=== PATIENT | female | born 1945 | race Caucasian/White ===

== ENCOUNTER 2016-07-27 12:09 | Emergency (ER) | payer OTHER, MEDICARE ==
[~2016-07-27] VITALS: Ht 149.9 cm; Wt 83.0 kg
[~2016-07-27 12:09] MED LIST: ABILIFY 10 MG10 MG PO; ABILIFY 2MG2 MG PO; ABILIFY 5MG5 MG PO; ABILIFY10 M1 PO; ABILIFY5 M1 PO; ALPRAZOLAM0.25 M1 PO; ALPRAZOLAM0.5 MG PO; AMOX-CLAV 875-1 EACH PO; AMOXIL500 MG PO; ARIPIPRAZOLE2 MG PO; ARIPIPRAZOLE5 M1 PO; ASPIRIN CHILDRE81 MG PO; ASPIRIN81 M4 PO; ATIVAN 0.5MG T0.5 MG PO; ATIVAN0.5 M1 PO; AUGMENTIN 875-1 EACH PO; BENZTROPINE ME0.5 M1 PO; BENZTROPINE ME0.5 MG PO; CEFUROXIME AXE500 MG PO; CEPHALEXIN500 MG PO; CLARINEX 5 MG TA5 MG PO; CLARINEX5 M1 PO; CLARINEX5 MG PO; CLARITIN10 MG PO; CRESTOR 10MG10 MG PO; CRESTOR5 M1 PO; DIVALPROEX SOD500 M2 PO; K-DUR 20MEQ TA20 MEQ PO; KEFLEX 250MG C250 MG PO; LAMICTAL 100MG100 MG PO; LAMICTAL150 MG PO; LASIX20 M1 PO; LASIX40 M1 PO; NATURE S BLEND PO; NATURE'S BLE1000 MCG PO; NITROGLYCERIN1 EACH TOP; OMEPRAZOLE20 M2 PO; POTASSIUM CHLO20 ME2 PO; PREDNISOLO15 MG/5 M4 PO; PRISTIQ 50MG50 MG PO; PRISTIQ ER25 MG PO; PRISTIQ ER50 MG PO; PROVENTIL HFA6.7 GM INH; QUETIAPINE FUMA25 M1 PO; QUETIAPINE FUMA50 M1 PO; SEROQUEL100 M1 PO; SEROQUEL50 M1 PO; VENLAFAXINE H37.5 M1 PO; VITAMIN C100 M2 PO; VITAMIN D1000 IU PO; VITAMIN D32000 I1 PO; VITAMIN D32000 UNI1 PO; XANAX 0.25MG0.25 MG PO; ZINC50 M1 PO; [UNRECOGNIZED DRUG - OTHER] INH
--- NOTE | 2016-07-27 13:29 | ED AMS/SEIZURE/WEAK/DIZZY ---
See Addendum History of Present Illness General Chief Complaint: General Adult Stated Complaint: WEAKNESS Source: patient Exam Limitations: no limitations Vital Signs & Intake/Output Vital Signs & Intake/Output Vital Signs Date Time Temp Pulse Resp B/P Pulse O2 O2 Flow FiO2 Ox Delivery Rate 07/28 2030 96.8 75 16 115/56 97 Room Air 07/28 1651 Room Air Room Air 07/28 1434 97.0 76 18 112/52 97 Room Air 07/28 1228 95.4 80 18 138/70 97 Room Air 07/28 1007 98.0 73 20 136/64 95 Room Air 07/28 0957 Room Air Room Air 07/28 0723 98.2 76 18 120/64 96 Room Air 07/28 0555 96.4 74 18 119/55 94 Room Air ED Intake and Output 07/28 0000 07/27 1200 Intake Total Output Total Balance Patient 183 lb Weight Allergies Coded Allergies: Sulfa (Sulfonamide Antibiotics) (Intermediate, FACIAL EDEMA 07/27/16) azithromycin (Intermediate, THROAT CLOSURE 07/27/16) egg (Intermediate, SWOLLEN RED EYES 07/27/16) amoxicillin (UNKNOWN 07/27/16) atorvastatin (UNKNOWN 07/27/16) lactose (UNKNOWN 07/27/16) ciprofloxacin (ANXIETY 07/27/16) Reconcile Medications Aripiprazole (Abilify) 10 MG TABLET 1 TAB PO QPM BIPOLAR DISORDER (Reported) Aspirin (Aspirin*) 81 MG TAB.CHEW 1-2 TAB PO DAILY HEART HEALTH (Reported) Azelastine HCl 137 MCG (0.1 %) SPRAY.PUMP 1 SPRAY NASB BID ALLERGIES ( Reported) Beclomethasone Dipropionate (Qnasl) (Unknown Strength) HFA.AER.AD (Unknown Dose) UNKNOWN (Reported) Cholecalciferol (Vitamin D3) (Vitamin D3) 2,000 UNIT TABLET 1 SGL PO DAILY SUPPLEMENT (Reported) Desloratadine (Clarinex) 5 MG TABLET 1 TAB PO DAILY ALLERGY (Reported) Divalproex Sodium 500 MG TABLET.DR 1 TAB PO BID MENTAL HEALTH (Reported) Furosemide (Lasix) 40 MG TABLET 1 TAB PO QAM CHF (Reported) Montelukast Sodium (Unknown Strength) TABLET (Unknown Dose) PO DAILY UNKNOWN (Reported) Potassium Chloride 20 MEQ TAB.ER.PRT 1 TAB PO DAILY SUPPLEMENT (Reported) Rosuvastatin Calcium (Crestor) (Unknown Strength) TABLET (Unknown Dose) UNKNOWN (Reported) Triage Note: PT BIBA TO [facility] FROM HOME IN [place] C/C GENERALIZED WEAKNESS, R ARM PAIN (CHRONIC) AND "MY EARS FEEL VERY CLOGGED". CLOGGED EARS X 5 DAYS. "EXTREMELY WEAK" X 3 WEEKS SINCE GETTING OUT OF REHAB. STATES "YESTERDAY IT FELT LIKE MY LEGS WERE GOING TO COLLAPSE". AMBULATES WITH [facility] AT [facility]. Triage Nurses Notes Reviewed? yes HPI: Patient presents for evaluation of generalized weakness. Onset of symptoms occurred about 3 weeks ago, gradual in onset but worsening over that time. Patient just returned home from a short-term rehabilitation stay. Over that time the patient's chronic leg and finger swelling has now worsened. Other than chills, the patient denies any associated fever or cold symptoms. There has been no lightheadedness shortness of breath or chest pain. Patient seems to be referring paroxysmal nocturnal dyspnea requiring her to elevate her head and upper body at night (patient typically sleeps upright). (LIBORIO GARCIA,TD Kothari) Past History Travel History Traveled to [place] past 21 day No Medical History Any Pertinent Medical History? 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 No (LIBORIO GARCIA,TD Kothari) Review of Systems Review of Systems Constitutional: Reports: weakness. EENTM: Reports: no symptoms. Respiratory: Reports: no symptoms. Cardiovascular: Reports: no symptoms. GI: Reports: no symptoms. Genitourinary: Reports: no symptoms. Musculoskeletal: Reports: no symptoms. Skin: Reports: no symptoms. Neurological/Psychological: Reports: no symptoms. Hematologic/Endocrine: Reports: no symptoms. Immunologic/Allergic: Reports: no symptoms. All Other Systems: Reviewed and Negative (LIBORIO GARCIA,TD Kothari) Physical Exam Physical Exam General Appearance: SEE BELOW Comments: Gen.: Well-nourished, well-developed, no acute respiratory distress. Head: Normocephalic, atraumatic. Eyes: Normal inspection bilaterally Ears: Normal inspection bilaterally Nose: Normal inspection Throat/mouth : Moist mucosa Neck: Supple, full range of motion, no goiter Heart: Regular rate and rhythm, no murmurs rubs or gallops Lungs: Left sided mild inspiratory and expiratory wheezing, no rales or rhonchi, normal air entry bilaterally Chest: Nontender Back: Normal range of motion Abdomen: Soft, nontender, nondistended, normal bowel sounds Extremities: Normal range of motion grossly, equal radial pulses, no cyanosis bilateral pitting 1-2+ lower extremity edema Neurologic: Cranial nerves grossly intact, speech is clear Skin: warm and dry Psychiatric: Calm, cooperative, no apparent delusions or hallucinations Core Measures ACS in differential dx? No CVA/TIA Diagnosis: No Severe Sepsis Present: No Septic Shock Present: No (LIBORIO GARCIA,TD Kothari) Progress Differential Diagnosis: anemia, dehydration, hypoglycemia, hypoxia, pneumonia, UTI/pyelo, CONGESTIVE HEART FAILURE Plan of Care: Orders Procedure Date/time Status Theraputic Activities 15 Min 07/28 UNK Complete Therapeutic Exercise X 15 07/28 UNK Complete MOBILITY GOAL STATUS 07/28 UNK Complete MOBILITY CURRENT STATUS 07/28 UNK Complete PT EVAL MOD COMPLEX 30 MIN 07/28 UNK Complete Current Medications Sig/Courtney Start time Last Medication Dose Stop Time Status Admin Atorvastatin Calcium 40 MG ONCE ONE 07/28 0915 CAN (Lipitor) 07/28 1200 Initial ED EKG: none (LIBORIO GARCIA,TD Kothari) Hand-Off Endorsed To: MARCELLUS PERLA MD Endorsed Time: 0700 Pending: consult (CASE MANAGEMENT) (ZABRINA GARCIA,SIMONA Rojas) Departure Departure Disposition: STILL A PATIENT Condition: Stable Referrals: JUAN DAVID MEIER MD (PCP/Family) Departure Forms: Customer Survey General Discharge Information (TD CAPONE MD) Departure Clinical Impression Primary Impression: Weakness (ZABRINA GARCIA,SIMONA Rojas) General Discharge Information
[2016-07-27 14:01] LABS: ABSOLUTE BASOPHIL COUNT 0 /CUMM (0.0-0.2); ABSOLUTE EOSINOPHIL COUNT 0 /CUMM (0.0-0.7); ABSOLUTE GRANULOCYTE CT 2.2 /CUMM (1.4-6.5); ABSOLUTE LYMPH COUNT 0.9 /CUMM (1.2-3.4); ABSOLUTE MONOCYTE COUNT 0.3 /CUMM (0.10-0.60); BASOPHIL % 0.1 % (0.0-2.0); GRANULOCYTE % 64.5 % (42.2-75.2); HEMATOCRIT 36.1 % (37-47); MEAN CORPUSCULAR HGB 28.9 PG (27.0-31.0); MEAN CORPUSCULAR HGB CONC 34.5 G/DL (33.0-37.0); MEAN CORPUSCULAR VOLUME 83.7 FL (81.0-99.0); MEAN PLATELET VOLUME 7.1 FL (7.4-10.4); PLATELET COUNT 192 /CUMM (130-400); RBC DISTRIBUTION WIDTH 19.2 % (11.5-14.5); RED BLOOD CELL CT 4.32 /CUMM (4.20-5.40); WHITE BLOOD CELL COUNT 3.4 /CUMM (4.8-10.8)
--- NOTE | 2016-07-27 14:11 | RADIOLOGY REPORT ---
EXAMINATION: XR PORTABLE CHEST CLINICAL INFORMATION: Weakness COMPARISON: 05/15/2016 TECHNIQUE: Portable AP view of the chest was obtained. FINDINGS: No focal consolidation, pulmonary edema, or pleural effusion. Stable enlarged cardiomediastinal silhouette. IMPRESSION: Mild cardiomegaly with low lung volumes. No significant change.
[2016-07-27] MEDS ORDERED: LASIX40 M1 PO (20:50)
[2016-07-27] MEDS ORDERED: MONTELUKAST SOD10 M1 PO (20:51)
[2016-07-27] MEDS ORDERED: QNASL8.7 GM (20:52)
[2016-07-27] MEDS ORDERED: CRESTOR5 M1 (20:53)
[2016-07-27] MEDS ORDERED: AZELASTINE137 MCG/0. NASB (20:53)
[2016-07-29 16:57] VITALS: BP 142/56
== END 2016-07-29 18:16 ==
LOC: ERH 12:09
PROVIDERS: Emergency Medicine
DX: R53.1 Weakness (principal); R26.89 Other abnormalities of gait and mobility; M17.0 Bilateral primary osteoarthritis of knee; F31.9 Bipolar disorder, unspecified; M79.89 Other specified soft tissue disorders
CPT/HCPCS: 81001; 87086; 93005; 93010; 97110-GP; 97162-GP; 97530-GP; G8978-GP; G8979-GP; J0401; J3490

== ENCOUNTER 2016-08-24 15:57 | Observation (INO) | payer OTHER, MEDICARE ==
[~2016-08-24 15:57] MED LIST changes: +AZELASTINE137 MCG/0. NASB; +CRESTOR5 M1; +MONTELUKAST SOD10 M1 PO; +QNASL8.7 GM
--- NOTE | 2016-08-24 16:01 | NUR ---
RADHA FROM HOME FOR GENERALIZED WEAKNESS. PER EMS, OT WAS AT HOUSE AND STATED PT WAS UNABLE TO GET UP DUE TO WEAKNESS AND URINE APPEARED TURBID. UPON ARRIVAL PT RESTING COMFORTABLY, IN NAD
--- NOTE | 2016-08-24 16:51 | NUR ---
PT VOIDED LARGE AMOUNT OF CLEAR LIGHT YELLOW URINE ON BEDPAN
--- NOTE | 2016-08-24 16:58 | NUR ---
URINE TRIO SENT TO LAB.
--- NOTE | 2016-08-24 17:28 | ED GENERAL ADULT ---
History of Present Illness General Chief Complaint: General Adult Stated Complaint: BIBA GEN WEAKNESS Source: patient, family, old records Exam Limitations: poor historian Vital Signs & Intake/Output Vital Signs & Intake/Output Vital Signs Date Time Temp Pulse Resp B/P Pulse O2 O2 Flow FiO2 Ox Delivery Rate 08/25 1527 97.8 98 18 137/71 99 08/25 0618 96.0 67 18 136/60 98 Room Air 08/24 2140 Room Air 08/24 2113 95.9 75 16 118/63 98 Room Air ED Intake and Output 08/25 0000 08/24 1200 Intake Total Output Total 400 Balance -400 Output, Urine 400 Allergies Coded Allergies: Sulfa (Sulfonamide Antibiotics) (Intermediate, FACIAL EDEMA 07/27/16) azithromycin (Intermediate, THROAT CLOSURE 07/27/16) egg (Intermediate, SWOLLEN RED EYES 07/27/16) atorvastatin (UNKNOWN 07/27/16) lactose (UNKNOWN 07/27/16) ciprofloxacin (ANXIETY 07/27/16) Reconcile Medications Amoxicillin 500 MG TABLET 1 TAB PO TID ANTIBIOTIC (Reported) Aripiprazole (Abilify) 10 MG TABLET 1 TAB PO QPM BIPOLAR DISORDER (Reported) Aspirin (Aspirin*) 81 MG TAB.CHEW 1-2 TAB PO DAILY HEART HEALTH (Reported) Azelastine HCl 137 MCG (0.1 %) SPRAY.PUMP 2 SPRAY NASB BID ALLERGIES ( Reported) Cholecalciferol (Vitamin D3) (Vitamin D3) 2,000 UNIT TABLET 1 SGL PO DAILY SUPPLEMENT (Reported) Desloratadine (Clarinex) 5 MG TABLET 1 TAB PO DAILY ALLERGY (Reported) Divalproex Sodium 500 MG TABLET.DR 2,000 MG PO BID MENTAL HEALTH (Reported) Furosemide (Lasix) 40 MG TABLET 1 TAB PO QAM CHF (Reported) Potassium Chloride 20 MEQ TAB.ER.PRT 1 TAB PO DAILY SUPPLEMENT (Reported) Triage Note: BIBA FROM HOME FOR GENERALIZED WEAKNESS. PER EMS, OT WAS AT HOUSE AND STATED PT WAS UNABLE TO GET UP DUE TO WEAKNESS AND URINE APPEARED TURBID. UPON ARRIVAL PT RESTING COMFORTABLY, IN NAD Triage Nurses Notes Reviewed? yes HPI: Patient is a 70 year old female brought in by ambulance complaining of generalized weakness, ear pressure, sinus pressure. Symptoms x 1-2 weeks, worsening over the past couple of days. Urinary frequency onset last week, placed on Amoxicillin on Wednesday with mild improvement. Patient was having difficulty waking up over the past week and was talking in her sleep, improving since satrting the Amoxicillin. Patient has had chronic problems with congestions, taking Claritin and using ear drops without improvement. Today patient was having difficulty ambulating, bilateral calf cramping sensation and could not walk down the stairs. This is a decline from patient's baseline per patient's daughter. Associated congested cough. Mild dyspnea. Denies chest pain, fevers. (CORINNA LÓPEZ) Past History Travel History Traveled to [place] past 21 day No Medical History Any Pertinent Medical History? 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 No (CORINNA LÓPEZ) Review of Systems Review of Systems Constitutional: Reports: malaise, weakness. Denies: chills, fever. EENTM: Reports: nasal congestion. Respiratory: Reports: cough, short of breath. Cardiovascular: Reports: peripheral edema. Denies: chest pain, syncope. GI: Denies: abdominal pain. Genitourinary: Reports: no symptoms. Musculoskeletal: Denies: back pain, neck pain. Neurological/Psychological: Reports: weakness. Denies: headache, numbness. Hematologic/Endocrine: Denies: bruising, bleeding. Immunologic/Allergic: Denies: splenectomy. (CORINNA LÓPEZ) Physical Exam Physical Exam General Appearance: well developed/nourished, alert, awake Head: atraumatic, normal appearance, tenderness bilateral maxillary sinuses Eyes: Bilateral: normal appearance, PERRL, EOMI. Ears, Nose, Throat: normal pharynx, normal ENT inspection, hearing grossly normal Neck: normal inspection, supple, full range of motion Respiratory: normal breath sounds, chest non-tender, no respiratory distress, lungs clear Cardiovascular: regular rate/rhythm Peripheral Pulses: 2+ dorsalis pedis (R), 2+ dorsalis pedis (L) Gastrointestinal: soft, non-tender Back: normal inspection, normal range of motion Extremities: 2+ bilateral lower extremity edema Neurologic/Psych: awake, alert Skin: intact, normal color, warm/dry Lymphatic: no anterior cervical sofia Core Measures ACS in differential dx? No CVA/TIA Diagnosis: No Severe Sepsis Present: No Septic Shock Present: No (CORINNA LÓPEZ) Progress Differential Diagnoses I considered the following diagnoses in my evaluation of the patient: dehydration, electrolyte abnormality, sinusitis, pneumonia, anemia, sepsis, psychiatric, chf, vertigo peripheral vs central, uti Plan of Care: Orders Procedure Date/time Status CASE MANAGEMENT CONSULT 08/25 1108 Active PT Evaluate & Treat 08/25 1017 Active BASIC METABOLIC PANEL 08/25 0608 Complete Theraputic Activities 15 Min 08/25 UNK Complete MOBILITY GOAL STATUS 08/25 UNK Complete MOBILITY CURRENT STATUS 08/25 UNK Complete PT EVAL MOD COMPLEX 30 MIN 08/25 UNK Complete Laboratory Tests 08/25/16 0658: Anion Gap 1 L, Estimated GFR > 60, BUN/Creatinine Ratio 24.3, Glucose 64 L, Calcium 9.4 08/24/16 2043: Lactic Acid Cancelled Patient re-evaluated multiple times. Results of labs and chest x-ray discussed with patient and her daughter. Discussed with Dr. Aparicio. Patient to be placed in ED observation, gentle hydration, recheck of sodium, free water restriction, possible PT consultation (CORINNA LÓPEZ) Diagnostic Imaging: Viewed by Me: Radiology Read. Discussed w/RAD: Radiology Read. Radiology Impression: PATIENT: BUD ESPINOSA PRESENT AGE: 70 PATIENT ACCOUNT NO: [id number] : 43 LOCATION: [facility] ORDERING PHYSICIAN: CORINNA COELLO SERVICE DATE: 08/24/16 EXAM TYPE: RAD - XRY-PORTABLE CHEST XRAY EXAMINATION: XR PORTABLE CHEST CLINICAL INFORMATION: Cough with generalized weakness. COMPARISON: 07/27/2016 TECHNIQUE: Portable AP view of the chest was obtained. FINDINGS: Low lung volumes. No dense consolidation. No edema or effusion. No pneumothorax. The cardiomediastinal silhouette is unchanged. Degenerative changes of the spine. IMPRESSION: No change from prior. Low lung volumes with no dense consolidation. DICTATED BY: SIMEON VELASCO MD DATE/TIME DICTATED:08/24/161806 CONSTRUCTION SUPERVISOR/CARPENTER: NAA DATE/TIME TRANSCRIBED:08/24/161806 CONFIDENTIAL, DO NOT COPY WITHOUT APPROPRIATE AUTHORIZATION. <Electronically signed in Other Vendor System> SIGNED BY: KRISTA GARCIA,SIMEON 08/24/161812 Initial ED EKG: normal sinus rhythm Rhythm Strip: normal sinus rhythm (CORINNA LÓPEZ) Hand-Off Endorsed To: TD RODRIGUEZ DO Endorsed Time: 0700 Pending: consult (SIMONA APARICIO MD) Departure Departure Disposition: STILL A PATIENT Condition: Stable Clinical Impression Primary Impression: Hyponatremia Secondary Impressions: Sinusitis Referrals: NEENA GARCIA,MARIA INES De Santiago (PCP/Family) Departure Forms: Customer Survey General Discharge Information Observation Note Spoke With: SIMONA APARICIO MD Physician Advisor Notified: SIMONA APARICIO MD Place Patient In: ED Observation Rationale for Observation: My rational for observation is as follows: Gentle IV fluids and monitoring of patient's sodium. If sodium continues to drop and likely admission. Possible physical therapy consultation (CORINNA LÓPEZ) Departure Comments 08/25/16 7 AM The patient was signed out to me by Dr. Tolentino. She is pending repeat serum sodium likely; PT and case management consultation. (TD RODRIGUEZ DO) Critical Care Note Critical Care Note Critical Care Time: non-applicable (CORINNA LÓPEZ) ED Attending Observation Initial Observation Note: I have seen and personally examined BUD ESPINOSA on 08/24/16 at 2016. I agree with the current emergency department documentation. The disposition (admission or discharge) is uncertain at this time, she needs a period of observation for the following reason(s): [Patient is profoundly weak and her sodium is 127. Patient will be gently hydrated with free water restriction throughout the night and repeat labs in the morning. If her sodium normalizes she will have a PT and a case management consult if her sodium drops and she will be admitted.] The ED Nurse caring for this patient has been personally informed as to what the patient is being observed for. Observation Re-Evaluation: I have reevaluated BUD ESPINOSA on 08/25/16 at 0309. The physical findings that support the continued need to observe this patient include [patient is sleeping comfortably. Her IV fluids are infusing. Her lungs are clear to auscultation. Her cardiac exam is regular rate and rhythm. We'll repeat a BMP in the morning.]. (ZABRINA GARCIA,SIMONA Rojas) Initial Observation Note: I have seen and personally examined BUD ESPINOSA on 08/25/16 at 2032. I agree with the current emergency department documentation. The disposition (admission or discharge) is uncertain at this time, she needs a period of observation for the following reason(s): The ED Nurse caring for this patient has been personally informed as to what the patient is being observed for. Observation Re-Evaluation: I Observation Discharge: Patient was reevaluated prior to discharge. She was comfortable and in no acute distress. Her repeat serum sodium was 127. I spoke with the nurse at [facility]. The patient will have the serum sodium repeated in 24-48 hours. She will be reevaluated by the medical staff at [facility] with the in the next 24 hours. She was discharged from observation at 1810 I have reevaluated BUD ESPINOSA on 08/25/16 at 1810 The patient is: ([x]): Stable for discharge (): To be admitted to Nursing Floor (): To be placed in Observation on Nursing Floor (): For transfer to other facility The patient was being observed for As a result of that observation, I have determined . (TD RODRIGUEZ DO) I agree with the current emergency department documentation. The disposition (admission or discharge) is uncertain at this time, she needs a period of observation for the following reason(s): [Patient is profoundly weak and her sodium is 127. Patient will be gently hydrated with free water restriction throughout the night and repeat labs in the morning. If her sodium normalizes she will have a PT and a case management consult if her sodium drops and she will be admitted.] The ED Nurse caring for this patient has been personally informed as to what the patient is being observed for. Observation Re-Evaluation: I have reevaluated BUD ESPINOSA on 08/25/16 at 0309. The physical findings that support the continued need to observe this patient include [patient is sleeping comfortably. Her IV fluids are infusing. Her lungs are clear to auscultation. Her cardiac exam is regular rate and rhythm. We'll repeat a BMP in the morning.]. (ZABRINA GARCIA,SIMONA Rojas)
[2016-08-24] MEDS ORDERED: AMOXICILLIN500 M3 PO (17:54)
--- NOTE | 2016-08-24 18:09 | NUR ---
BLOOD DRAWN AND SENT TO LAB, SST,LAV,BLUE,FRAZIER
--- NOTE | 2016-08-24 18:13 | RADIOLOGY REPORT ---
EXAMINATION: XR PORTABLE CHEST CLINICAL INFORMATION: Cough with generalized weakness. COMPARISON: 07/27/2016 TECHNIQUE: Portable AP view of the chest was obtained. FINDINGS: Low lung volumes. No dense consolidation. No edema or effusion. No pneumothorax. The cardiomediastinal silhouette is unchanged. Degenerative changes of the spine. IMPRESSION: No change from prior. Low lung volumes with no dense consolidation.
[2016-08-24 18:23] LABS: ABSOLUTE BASOPHIL COUNT 0 /CUMM (0.0-0.2); ABSOLUTE EOSINOPHIL COUNT 0 /CUMM (0.0-0.7); ABSOLUTE GRANULOCYTE CT 2.8 /CUMM (1.4-6.5); ABSOLUTE LYMPH COUNT 1.3 /CUMM (1.2-3.4); ABSOLUTE MONOCYTE COUNT 0.4 /CUMM (0.10-0.60); BASOPHIL % 0.2 % (0.0-2.0); EOSINOPHIL % 0.5 % (0-5); GRANULOCYTE % 61.3 % (42.2-75.2); HEMATOCRIT 32.9 % (37-47); MEAN CORPUSCULAR HGB 28.3 PG (27.0-31.0); MEAN CORPUSCULAR HGB CONC 33.4 G/DL (33.0-37.0); MEAN CORPUSCULAR VOLUME 84.7 FL (81.0-99.0); MEAN PLATELET VOLUME 7.7 FL (7.4-10.4); PLATELET COUNT 191 /CUMM (130-400); RBC DISTRIBUTION WIDTH 19.6 % (11.5-14.5); RED BLOOD CELL CT 3.89 /CUMM (4.20-5.40); WHITE BLOOD CELL COUNT 4.5 /CUMM (4.8-10.8)
--- NOTE | 2016-08-24 19:09 | NUR ---
PT GIVEN TWO CANS OF ALONDRA YOLANDA FOR BS OF 62, PT REFUSED JUICE
--- NOTE | 2016-08-24 20:00 | NUR ---
OUMOU Garcia AT BEDSIDE TO DISCUSS RESULTS AND POC
--- NOTE | 2016-08-24 20:10 | NUR ---
Case Mgmnt TSF: I went in and introduced myself to patient and daughter. I explained possible plans of care. Per daughter, patient left [facility] a "week ago last Wednesday". I believe that would be the . Per daughter, patient does have days left for STR "about 1 month left". PT eval to be placed for the morning. I will work on paperwork for possible STR if patient has a skill for such. I updated nursing, Kirk Garcia and Dr. Aparicio as to plan of care. Both patient and daughter are in agreement. CM continuing to follow.
--- NOTE | 2016-08-24 20:38 | NUR ---
BOXED LUNCH PROVIDED TO PT
--- NOTE | 2016-08-24 20:45 | NUR ---
Case Mgmnt TSF: I went in to speak with patient and daughter again. I just confirmed plan for the night with them. Daughter will be going home soon. We will follow up with them in the morning. CM continuing to follow.
--- NOTE | 2016-08-24 21:55 | NUR ---
Case Mgmnt TSF: I have completed MIMR, Case Mgmnt assessment, common francheska, choices for the patient. Pending w10 and pt hernan. CM continuing to follow.
--- NOTE | 2016-08-24 22:14 | NUR ---
UNSUCCESSFUL X2 ATTEMPTS TO ESTABLISH IV
--- NOTE | 2016-08-24 23:33 | NUR ---
NS INFUSING AT 125 MLS/HR PER EMAR AT THIS TIME. PT TOLERATING WELL.
--- NOTE | 2016-08-25 00:48 | NUR ---
MOVED TO ROOM 3. PLACED ON HOSPITAL BED. REPOSITIVED FOR COMFORT.
--- NOTE | 2016-08-25 02:22 | NUR ---
PT SLEEPING WITH REGULAR RR AT THIS TIME. NO ACUTE DISTRESS NOTED.
--- NOTE | 2016-08-25 03:58 | NUR ---
PT AWAKE, ASKING WHAT TIME IT IS. DENIES ANY OTHER NEEDS AT THIS TIME.
--- NOTE | 2016-08-25 05:34 | NUR ---
PT SLEEPING WITH REGULAR RR NOTED. NO ACUTE DISTRESS NOTED. WILL CTM.
[2016-08-25 15:27] VITALS: BP 137/71
--- NOTE | 2016-08-25 16:37 | NUR ---
CASE MANAGMENT-PT EVALUATION COMPLETED AND STR RECOMMENDED. SPOKE WITH PTS DAUGHTER WHO AGREES. PER [facility] THE PATIENT HAS USED 66 DAYS OF HER MEDICARE BENIFIT. REVIEWED THAT WITH PATIENTS DAUGHTER WHO STATES PATIENT IS NOT ELIGIBLE TO APPLY FOR MEDICAID AT THIS TIME. [facility] HAS ACCEPTED THE PATIENT BACK PENDING [facility] APPROVAL. PER [facility] WE SHOULD HAVE APPROVAL THIS EVENING.
--- NOTE | 2016-08-25 16:48 | NUR ---
DAILY MEDS GIVEN.
--- NOTE | 2016-08-25 17:40 | NUR ---
TRANSPORT BOOKED FOR PATIENT TO GO TO [facility] VIA [facility]
--- NOTE | 2016-08-25 17:41 | NUR ---
CASE MANAGMENT-[facility] APPROVAL OBTAINED. [facility] WILL ACCEPT PATIENT THIS EVENING. PT AND PTS DAUGHTER IN AGREEMENT. ER WILL SET UP TRANSPORT TO [facility]
--- NOTE | 2016-08-25 18:00 | NUR ---
REPORT GIVEN TO RECEIVING NURSE JESÚS AT FACILITY.
--- NOTE | 2016-08-25 18:10 | NUR ---
REPORT GIVEN TO [facility]
== END 2016-08-25 18:30 ==
LOC: ERH 15:57 → ERHI 20:16 → CMPBEDREQ 08-25 17:47 → ERHI 08-25 17:53
PROVIDERS: Physician Assistant; ADMIT Emergency Medicine
DX: E87.1 Hypo-osmolality and hyponatremia (principal); R35.0 Frequency of micturition; J32.9 Chronic sinusitis, unspecified; I50.32 Chronic diastolic (congestive) heart failure; M17.10 Unilateral primary osteoarthritis, unspecified knee; F31.9 Bipolar disorder, unspecified; F20.9 Schizophrenia, unspecified; Z85.3 Personal history of malignant neoplasm of breast
CPT/HCPCS: 81001; 87086; 93005; 93010; 97162-GP; 97530-GP; G0378; G8978-GP; G8979-GP; J0401; J3490

== ENCOUNTER 2016-10-15 07:56 | Emergency (ER) | payer OTHER, MEDICARE ==
[~2016-10-15] VITALS: Ht 154.9 cm; Wt 90.7 kg
[~2016-10-15 07:56] MED LIST changes: +AMOXICILLIN500 M3 PO
--- NOTE | 2016-10-15 08:05 | ED GENERAL ADULT ---
See Addendum History of Present Illness General Chief Complaint: General Adult Stated Complaint: BIBA GEN WEAKNESS, ?UTI Source: patient, family, old records, EMS Exam Limitations: no limitations Vital Signs & Intake/Output Vital Signs & Intake/Output Vital Signs Date Time Temp Pulse Resp B/P B/P Pulse O2 O2 Flow FiO2 Mean Ox Delivery Rate 10/16 0713 97.0 70 18 112/68 98 Room Air 10/16 0023 68 16 105/57 96 Room Air 10/15 1829 96.0 68 18 97/63 98 Room Air 10/15 1538 Room Air 10/15 1533 96.0 70 16 88/59 96 Room Air 10/15 1413 95.4 68 18 102/54 94 Room Air 10/15 1259 70 134/78 10/15 1116 118/68 10/15 1031 88/68 10/15 1028 68 20 86/48 94 Room Air 10/15 0907 97 10/15 0855 Room Air 10/15 0818 96.7 10/15 0803 72 16 114/55 95 Room Air ED Intake and Output 10/16 0000 10/15 1200 Intake Total 600 Output Total Balance 600 Intake, Oral 600 Patient 200 lb Weight Weight Estimated Measurement Method Allergies Coded Allergies: Sulfa (Sulfonamide Antibiotics) (Intermediate, FACIAL EDEMA 07/27/16) azithromycin (Intermediate, THROAT CLOSURE 07/27/16) egg (Intermediate, SWOLLEN RED EYES 07/27/16) atorvastatin (UNKNOWN 07/27/16) lactose (UNKNOWN 07/27/16) ciprofloxacin (ANXIETY 07/27/16) Triage Note: PT BIBA FOR QUESTIONABLE UTI.. PER EMS THEY WERE INITIALLY CALLED FOR UNRESPONSIVE AND SOB.. PT WAS LATHARGIC WHEN EMS ARRIVED. PT IS AOX3 ON ARRIVAL.. PT HAS HX OF CHF Triage Nurses Notes Reviewed? yes Onset: Gradual Duration: day(s): (1) Timing: recent history Injury Environment: home Severity: moderate Severity Numbers: 7 No Modifying Factors: none Associated Symptoms: cough HPI: Patient is a 70-year-old female with history of hyponatremia, CHF presenting to the emergency department with chief complaint of generalized malaise and weakness along with upper respiratory congestion and cough. Denies fevers or chills. She also reports that she was short of breath this morning. Per family member she's had intermittent episodes of weakness and "fogginess". She was diagnosed with hyponatremia last time she was in the emergency department and this was attributed from the Lasix tablets she takes for the edema and CHF. Her doctor thought she should take a sodium pill. Patient was discharged from rehabilitation about 3-1/2 weeks ago and has been doing well at home up until the past couple days. Per family member patient has required more assistance out of bed. She is usually ambulatory with a walker without any assistance. Family member was concerned about potential urinary tract infection. She reports productive cough of clear sputum. (ITZEL PRASAD) Reconcile Medications Aripiprazole (Abilify) 10 MG TABLET 1 TAB PO QPM BIPOLAR DISORDER (Reported) Aspirin (Aspirin*) 81 MG TAB.CHEW 1-2 TAB PO DAILY HEART HEALTH (Reported) Azelastine HCl 137 MCG (0.1 %) SPRAY.PUMP 2 SPRAY NASB BID ALLERGIES ( Reported) Cholecalciferol (Vitamin D3) (Vitamin D3) 2,000 UNIT TABLET 1 SGL PO DAILY SUPPLEMENT (Reported) Desloratadine (Clarinex) 5 MG TABLET 1 TAB PO DAILY ALLERGY (Reported) Divalproex Sodium 500 MG TABLET.DR 2,000 MG PO BID MENTAL HEALTH (Reported) Furosemide (Lasix) 40 MG TABLET 1 TAB PO QAM CHF (Reported) Potassium Chloride 20 MEQ TAB.ER.PRT 1 TAB PO DAILY SUPPLEMENT (Reported) (LIBORIO GARCIA,TD Kothari) Past History Travel History Traveled to [place] past 21 day No Medical History Any Pertinent Medical History? 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 No (ITZEL PRASAD) Review of Systems Review of Systems Constitutional: Reports: malaise, weakness. Comments Review of systems: See HPI, All other systems negative. Constitutional, no chills fever or weight loss HEENT: No visual changes no sore throat Cardiovascular: No chest pain ,palpitation , orthopnea or ankle swelling Skin, no jaundice no rashes Respiratory: No hemoptysis GI: No nausea no vomiting : No dysuria No hematuria Muscle skeletal: no back pain, no neck pain, Neurologic: No numbness no confusion Psych: No stress anxiety or depression,. Heme/endocrine: No bruising no bleeding no polyuria or polydipsia Immunology: No splenectomy or history of AIDS (ITZEL PRASAD) Physical Exam Physical Exam General Appearance: well developed/nourished, no apparent distress, alert, awake , comfortable Comments: Well-developed well-nourished person in no acute distress HEENT: extraocular motion intact, no nystagmus. Pupils equally round and reactive to light and accommodation. Nose is atraumatic. External auditory canal and Tympanic membranes clear. Pharynx is mildly erythematous. No swelling or edema. Neck: Supple, no lymphadenopathy, normal range of motion without pain or tenderness Back: Nontender, no CVA tenderness. Full range of motion Cardiovascular: Regular rate and rhythms no murmurs rubs or gallops, normal JVP, unable to appreciate any carotid bruits on auscultation. Respiratory: Chest nontender. No respiratory distress.breath sounds SLIGHTLY DIMINISHED to auscultation bilaterally Abdomen: Soft, nontender nondistended, no appreciable organomegaly. Normal bowel sounds. No ascites, NO REBOUND OR GAURDING Extremity: 2+ pitting edema laterally, no calf tenderness to palpation, normal and equal pulses. Pin Sorter And Bagger strength is equal and symmetric bilaterally. Full range of motion of upper and lower she weighs about difficulty. Muscular strength is 4 out of 5 in all extremities. Neuro: Alert oriented x3, motor sensory normal, cranial nerves II through XII grossly intact. Cerebellar testing is unremarkable. Skin: No appreciable rash on exposed skin, skin is warm and dry. Psych: Mood and affect is normal, memory and judgment is normal. Core Measures ACS in differential dx? Yes CVA/TIA Diagnosis: No Severe Sepsis Present: No Septic Shock Present: No (ITZEL PRASAD) Progress Differential Diagnoses I considered the following diagnoses in my evaluation of the patient: O abnormality, dehydration, UTI, pneumonia, bronchitis, sinusitis, upper respiratory infection Plan of Care: Orders Procedure Date/time Status Heart Healthy Diet 10/15 L Active PT Evaluate & Treat 10/15 1145 Active Add-on Test (ER Only) 10/15 0901 Active B-TYPE NATRIURETIC PEP (BNP) 10/15 0834 Complete FingerStick- Glucose 10/15 08 Active CULTURE,URINE 10/15 08 Active URINALYSIS 10/15 08 Complete TROPONIN LEVEL 10/15 08 Complete PARTIAL THROMBOPLASTIN TIME 10/15 08 Complete PROTHROMBIN TIME 10/15 08 Complete LACTIC ACID 10/15 08 Complete COMPREHENSIVE METABOLIC PANEL 10/15 08 Complete CBC WITHOUT DIFFERENTIAL 10/15 08 Complete EKG 10/15 08 Active Theraputic Activities 15 Min 10/15 UNK Complete MOBILITY GOAL STATUS 10/15 UNK Complete MOBILITY CURRENT STATUS 10/15 UNK Complete PT EVAL LOW COMPLEX 20 MIN 10/15 UNK Complete Laboratory Tests 10/15/16 1104: Lactic Acid Cancelled 10/15/16 0925: Urinalysis LIGHT H, Urine Color YEL, Urine Clarity CLEAR, Urine pH 6.5, Ur Specific [place] 1.010, Urine Protein NEG, Urine Ketones TRACE H, Urine Nitrite NEG, Urine Bilirubin NEG, Urine Urobilinogen 0.2, Ur Leukocyte Esterase SMALL H , Ur Microscopic SEDIMENT EXAMINED, Urine RBC FEW H, Urine WBC 1-3 H, Ur Epithelial Cells FEW, Urine Bacteria FEW H, Hyaline Casts FEW H, Urine Hemoglobin NEG, Urine Glucose NEG 10/15/16 0834: Anion Gap 9, Estimated GFR > 60, BUN/Creatinine Ratio 36.3 H, Glucose 96, Lactic Acid 1.8, Calcium 9.2, Total Bilirubin 0.2, AST 27, ALT 43, Alkaline Phosphatase 88, Troponin I < 0.01, Ias-B-Sgloqemzipq Pept 211 H, Total Protein 6.2 L, Albumin 3.3 L, Globulin 2.9, Albumin/Globulin Ratio 1.1, PT 10.3, INR 0.98, APTT 37, CBC w Diff NO MAN DIFF REQ, RBC 3.65 L, MCV 86.8, MCH 28.9, RDW 21.9 H, MPV 7.4, Gran % 73.5, Lymphocytes % 22.3, Monocytes % 2.6, Eosinophils % 1.5, Basophils % 0.1, Absolute Granulocytes 4.2, Absolute Lymphocytes 1.3, Absolute Monocytes 0.1 L, Absolute Eosinophils 0.1, Absolute Basophils 0, PUBS MCHC 33.3 Microbiology 10/15 924 URINE ROUT: Urine Culture - RECD Diagnostic Imaging: Viewed by Me: Radiology Read. Discussed w/RAD: Radiology Read. Radiology Impression: PATIENT: BDU ESPINOSA PRESENT AGE: 70 PATIENT ACCOUNT NO: [id number] : 43 LOCATION: [facility] ORDERING PHYSICIAN: ITZEL COELLO SERVICE DATE: 10/15/16 EXAM TYPE: RAD - XRY-PORTABLE CHEST XRAY EXAMINATION: XR PORTABLE CHEST CLINICAL INFORMATION: Weakness. Rule out pneumonia. COMPARISON: Chest x-ray of 08/24/2016 and multiple previous chest x-rays dated back to 11/05/2015. CT chest of 2015. TECHNIQUE: Portable frontal view of the chest was obtained. FINDINGS: The lungs are hypoexpanded. Patients chin obscures the portion of the right lung apex. There is stable moderate elevation of the right hemidiaphragm. There are right basilar airspace opacities. The cardiomediastinal silhouette is unchanged with normal cardiac size for this technique. No evidence of pulmonary edema, significant pleural effusions or pneumothorax. IMPRESSION: Low lung volumes. Stable moderate elevation of the right hemidiaphragm. Right basilar airspace opacities may reflect infiltrate and/or atelectasis. Recommend attention to this region on follow-up imaging. DICTATED BY: RANDALL HUITRON MD DATE/TIME DICTATED:846 PEN MAKER:NAA DATE/TIME TRANSCRIBED:10/15/16846 CONFIDENTIAL, DO NOT COPY WITHOUT APPROPRIATE AUTHORIZATION. <Electronically signed in Other Vendor System> SIGNED BY: RANDALL HUITRON MD 10/15/16902 Initial ED EK SINUS RHYTHM LVH Hand-Off Endorsed To: MARCELLUS PERLA MD Endorsed Time: 1999 Pending: other Comments: Patient has significant difficulty with ambulating, takes max assist of 2 to get patient in and out of bed, then assisted to with a step or 2 with a walker, patient reports that she feels unsteady with this gait. Physical therapy is recommending rehabilitation. Spoke with case management, looking for a bed for patient. Patient will be in the ER to rehabilitation transfer. Patient family member complaint. 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 (LIBORIO GARCIA,TD Kothari) Departure Departure Disposition: STILL A PATIENT Condition: Stable Clinical Impression Primary Impression: Weakness Secondary Impressions: Multifactorial gait disorder Referrals: NEENA GARCIA,MARIA INES De Santiago (PCP/Family) Departure Forms: Customer Survey General Discharge Information (ITZEL PRASAD) PA/DIRECTOR OF CARDIOPULMONARY SERVICES Co-Sign Statement Statement: ED Attending supervision documentation- [X] I saw and evaluated the patient. I have also reviewed all the pertinent lab results and diagnostic results. I agree with the findings and the plan of care as documented in the PA's/DIRECTOR OF CARDIOPULMONARY SERVICES's documentation. [] I have reviewed the ED Record and agree with the PA's/DIRECTOR OF CARDIOPULMONARY SERVICES's documentation. [] Additions or exceptions (if any) to the PAs/DIRECTOR OF CARDIOPULMONARY SERVICES's note and plan are summarized below: [] (LIBORIO GARCIA,DT Kothari) Critical Care Note Critical Care Note Critical Care Time: non-applicable (ITZEL PRASAD)
[2016-10-15 08:42] LABS: ABSOLUTE BASOPHIL COUNT 0 /CUMM (0.0-0.2); ABSOLUTE EOSINOPHIL COUNT 0.1 /CUMM (0.0-0.7); ABSOLUTE GRANULOCYTE CT 4.2 /CUMM (1.4-6.5); ABSOLUTE LYMPH COUNT 1.3 /CUMM (1.2-3.4); ABSOLUTE MONOCYTE COUNT 0.1 /CUMM (0.10-0.60); BASOPHIL % 0.1 % (0.0-2.0); EOSINOPHIL % 1.5 % (0-5); GRANULOCYTE % 73.5 % (42.2-75.2); HEMATOCRIT 31.7 % (37-47); MEAN CORPUSCULAR HGB 28.9 PG (27.0-31.0); MEAN CORPUSCULAR HGB CONC 33.3 G/DL (33.0-37.0); MEAN CORPUSCULAR VOLUME 86.8 FL (81.0-99.0); MEAN PLATELET VOLUME 7.4 FL (7.4-10.4); PLATELET COUNT 128 /CUMM (130-400); RBC DISTRIBUTION WIDTH 21.9 % (11.5-14.5); RED BLOOD CELL CT 3.65 /CUMM (4.20-5.40); WHITE BLOOD CELL COUNT 5.7 /CUMM (4.8-10.8)
[2016-10-15 08:51] LABS: PT 10.3 SEC (9.4-12.5); PTT 37 SEC (25-37)
--- NOTE | 2016-10-15 09:03 | RADIOLOGY REPORT ---
EXAMINATION: XR PORTABLE CHEST CLINICAL INFORMATION: Weakness. Rule out pneumonia. COMPARISON: Chest x-ray of 08/24/2016 and multiple previous chest x-rays dated back to 11/05/2015. CT chest of 11/02/2015. TECHNIQUE: Portable frontal view of the chest was obtained. FINDINGS: The lungs are hypoexpanded. Patients chin obscures the portion of the right lung apex. There is stable moderate elevation of the right hemidiaphragm. There are right basilar airspace opacities. The cardiomediastinal silhouette is unchanged with normal cardiac size for this technique. No evidence of pulmonary edema, significant pleural effusions or pneumothorax. IMPRESSION: Low lung volumes. Stable moderate elevation of the right hemidiaphragm. Right basilar airspace opacities may reflect infiltrate and/or atelectasis. Recommend attention to this region on follow-up imaging.
[2016-10-16 09:32] VITALS: BP 106/68
== END 2016-10-16 11:17 ==
LOC: ERH 07:56
PROVIDERS: Physician Assistant
DX: R53.1 Weakness (principal); R26.89 Other abnormalities of gait and mobility; I50.9 Heart failure, unspecified; R06.02 Shortness of breath
CPT/HCPCS: 1263; 81001; 87086; 93005; 93010; 97161-GP; 97530-GP; G8978-GP; G8979-GP

== ENCOUNTER 2016-10-16 17:52 | Emergency (ER) | payer OTHER, MEDICARE ==
--- NOTE | 2016-10-16 18:18 | ED GENERAL ADULT ---
History of Present Illness General Chief Complaint: Chest Pain Stated Complaint: BIBA FOR CHEST PAIN, HERE EARLIER Source: patient Exam Limitations: no limitations Vital Signs & Intake/Output Vital Signs & Intake/Output Vital Signs Date Time Temp Pulse Resp B/P B/P Pulse O2 O2 Flow FiO2 Mean Ox Delivery Rate 10/16 2253 98.0 64 20 128/64 97 Room Air 10/16 2054 97.5 60 20 135/60 98 Room Air 10/17 2039 97 Room Air 10/16 1916 97.0 61 18 124/60 97 Room Air 10/16 1801 98.0 80 16 136/83 98 Room Air Room Air Allergies Coded Allergies: Sulfa (Sulfonamide Antibiotics) (Intermediate, FACIAL EDEMA 10/16/16) azithromycin (Intermediate, THROAT CLOSURE 10/16/16) egg (Intermediate, SWOLLEN RED EYES 10/16/16) atorvastatin (UNKNOWN 10/16/16) lactose (UNKNOWN 10/16/16) ciprofloxacin (ANXIETY 10/16/16) Reconcile Medications Aripiprazole (Abilify) 10 MG TABLET 1 TAB PO QPM BIPOLAR DISORDER (Reported) Aspirin (Aspirin*) 81 MG TAB.CHEW 1-2 TAB PO DAILY HEART HEALTH (Reported) Azelastine HCl 137 MCG (0.1 %) SPRAY.PUMP 2 SPRAY NASB BID ALLERGIES ( Reported) Cholecalciferol (Vitamin D3) (Vitamin D3) 2,000 UNIT TABLET 1 SGL PO DAILY SUPPLEMENT (Reported) Desloratadine (Clarinex) 5 MG TABLET 1 TAB PO DAILY ALLERGY (Reported) Divalproex Sodium 500 MG TABLET.DR 2,000 MG PO BID MENTAL HEALTH (Reported) Furosemide (Lasix) 40 MG TABLET 1 TAB PO QAM CHF (Reported) Potassium Chloride 20 MEQ TAB.ER.PRT 1 TAB PO DAILY SUPPLEMENT (Reported) Triage Note: PT BIBA FROM REHAB FOR RIGHTSIDED CHEST PAIN, ONLY WITH PALPATION. PT DENIES ANY OTHER SYMPTOMS. SKIN WARM AND DRY, SHE IS ALERT AND ORIENTED AND IS IN NO RESPIRAOTRY DISTRESS. PT RESTING ON STRETCHER COMFORTABLY. PT WAS JUST D/C FROM ED FOR PLACEMENT DUE TO INCREASED WEAKNESS. Triage Nurses Notes Reviewed? yes Onset: Abrupt Duration: hour(s): Timing: recent history HPI: 10/16/16 8:16 pm 70-year-old female presents to the emergency department for chest pain. The patient says that she had a episode of chest pain earlier today. The chest pain was retrosternal and nonradiating. She denies shortness of breath or other complaints. Presently in the ED she has chest pain grade 2 out of 10. It is somewhat worse with palpation. There is no rash. The onset of the symptoms was abrupt, the duration has been approximately 2 hours prior to arrival, the severity significant; as her symptoms required her to come to the emergency department for care. She denies cough or fever. The patient was seen earlier today for chest pain. She does have a history of bipolar disorder. Past History Travel History Traveled to [place] past 21 day No Medical History Any Pertinent Medical History? 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 No Review of Systems Review of Systems Constitutional: Denies: fever. EENTM: Reports: no symptoms. Respiratory: Reports: no symptoms. Cardiovascular: Reports: no symptoms. GI: Reports: no symptoms. Genitourinary: Reports: no symptoms. Musculoskeletal: Reports: no symptoms. Skin: Denies: rash. Neurological/Psychological: Reports: no symptoms. Hematologic/Endocrine: Reports: no symptoms. Immunologic/Allergic: Reports: no symptoms. Physical Exam Physical Exam General Appearance: alert, awake, anxious, mild distress Head: atraumatic, normal appearance Eyes: Bilateral: normal appearance, PERRL, EOMI. Ears, Nose, Throat: normal pharynx, normal ENT inspection Neck: normal inspection, supple, full range of motion Respiratory: normal breath sounds, no respiratory distress, chest wall tender Cardiovascular: regular rate/rhythm Peripheral Pulses: 4+ radial (R), 4+ radial (L) Gastrointestinal: soft, non-tender Back: decreased range of motion Extremities: pedal edema Neurologic/Psych: no motor/sensory deficits, awake, alert, oriented x 3 Skin: intact, normal color, warm/dry Core Measures ACS in differential dx? Yes CVA/TIA Diagnosis: No Severe Sepsis Present: No Septic Shock Present: No Progress Differential Diagnoses I considered the following diagnoses in my evaluation of the patient: [Acute coronary syndrome, pulmonary embolism, costochondritis] Plan of Care: Orders Procedure Date/time Status TROPONIN LEVEL 10/16 2199 Complete EKG 10/16 2199 Active TROPONIN LEVEL 10/16 1829 Complete D-DIMER 10/16 1829 Complete COMPREHENSIVE METABOLIC PANEL 10/16 1829 Complete CBC WITHOUT DIFFERENTIAL 10/16 1829 Complete EKG 10/16 175 Active Laboratory Tests 10/16/16 2151: Troponin I < 0.01 10/16/16 1842: Anion Gap 4 L, Estimated GFR > 60, BUN/Creatinine Ratio 40.0 H, Glucose 80, Calcium 9.0, Total Bilirubin 0.3, AST 41 H, ALT 56 H, Alkaline Phosphatase 89, Troponin I < 0.01, Total Protein 6.1 L, Albumin 3.1 L, Globulin 3.0, Albumin/ Globulin Ratio 1.0 L, D-Dimer 244 H, CBC w Diff NO MAN DIFF REQ, RBC 3.54 L, MCV 88.2, MCH 28.9, RDW 21.4 H, MPV 7.4, Gran % 59.7, Lymphocytes % 27.7, Monocytes % 10.0 H, Eosinophils % 2.1, Basophils % 0.5, Absolute Granulocytes 2.2, Absolute Lymphocytes 1.0 L, Absolute Monocytes 0.4, Absolute Eosinophils 0.1, Absolute Basophils 0, PUBS MCHC 32.7 L CXR Impression: no acute abnormality Initial ED EKG: NSR, nonspecific ST T wave chg Prior EKG: unchanged Departure Departure Disposition: STILL A PATIENT Condition: Stable Clinical Impression Primary Impression: Chest pain Referrals: NEENA GARCIA,MARIA INES De Santiago (PCP/Family) Departure Forms: Customer Survey General Discharge Information Comments cxr negative Patient's repeat EKG is unchanged. Second troponin is nondetectable, age adjusted d-dimer is negative She will be discharged to the retirement. She will be well supervised and follow-up with her doctor in the next 48 hours Critical Care Note Critical Care Note Critical Care Time: non-applicable
[2016-10-16 19:09] LABS: ABSOLUTE BASOPHIL COUNT 0 /CUMM (0.0-0.2); ABSOLUTE EOSINOPHIL COUNT 0.1 /CUMM (0.0-0.7); ABSOLUTE GRANULOCYTE CT 2.2 /CUMM (1.4-6.5); ABSOLUTE MONOCYTE COUNT 0.4 /CUMM (0.10-0.60); BASOPHIL % 0.5 % (0.0-2.0); EOSINOPHIL % 2.1 % (0-5); GRANULOCYTE % 59.7 % (42.2-75.2); HEMATOCRIT 31.2 % (37-47); MEAN CORPUSCULAR HGB 28.9 PG (27.0-31.0); MEAN CORPUSCULAR HGB CONC 32.7 G/DL (33.0-37.0); MEAN CORPUSCULAR VOLUME 88.2 FL (81.0-99.0); MEAN PLATELET VOLUME 7.4 FL (7.4-10.4); PLATELET COUNT 104 /CUMM (130-400); RBC DISTRIBUTION WIDTH 21.4 % (11.5-14.5); RED BLOOD CELL CT 3.54 /CUMM (4.20-5.40); WHITE BLOOD CELL COUNT 3.7 /CUMM (4.8-10.8)
--- NOTE | 2016-10-16 19:23 | RADIOLOGY REPORT ---
EXAMINATION: XR PORTABLE CHEST CLINICAL INFORMATION: [facility]. COMPARISON: 10/15/2016 TECHNIQUE: Portable frontal view of the chest was obtained. FINDINGS: Lung volumes remain low. Cardiomegaly is stable. The lungs are clear without evidence of developing consolidation, pulmonary edema, pleural effusion, or pneumothorax. The right hemidiaphragm remains slightly elevated relative to the left. There are degenerative changes of the spine and diffuse bony demineralization without convincing acute osseous abnormality. IMPRESSION: No convincing acute abnormality. Low lung volumes and stable cardiomegaly.
[2016-10-17 00:41] VITALS: BP 127/62
== END 2016-10-17 00:42 ==
LOC: ERH 17:52
PROVIDERS: Emergency Medicine
DX: R07.89 Other chest pain (principal)
CPT/HCPCS: 93005; 93010

== ENCOUNTER 2016-11-30 19:11 | Observation (INO) | payer OTHER, MEDICARE ==
[~2016-11-30] VITALS: Ht 149.9 cm; Wt 84.8 kg
--- NOTE | 2016-11-30 19:15 | NUR ---
PT BIBA S/P SLIPPING GOING UP STAIRS, PT DENIES DIZZINESS, LOC. LANDED ON R SIDE, ECCHYMOSIS TO R [place]. DENIES OTHER COMPLAINTS.
--- NOTE | 2016-11-30 19:23 | ED MVC/FALL/TRAUMA COMPLAINT ---
History of Present Illness General Chief Complaint: Fall Stated Complaint: BIBA FALL Source: patient, family, old records Exam Limitations: no limitations Vital Signs & Intake/Output Vital Signs & Intake/Output Vital Signs Date Time Temp Pulse Resp B/P B/P Pulse O2 O2 Flow FiO2 Mean Ox Delivery Rate 12/03 1445 97.5 65 20 132/60 96 Room Air ED Intake and Output 12/04 0000 12/03 1200 Intake Total 900 250 Output Total 1100 500 Balance -200 -250 Intake, IV 10 Intake, Oral 900 240 Number 6 1 Bowel Movements Output, Urine 1100 500 Allergies Coded Allergies: Sulfa (Sulfonamide Antibiotics) (Intermediate, FACIAL EDEMA 10/16/16) azithromycin (Intermediate, THROAT CLOSURE 10/16/16) egg (Intermediate, SWOLLEN RED EYES 10/16/16) atorvastatin (UNKNOWN 10/16/16) lactose (UNKNOWN 10/16/16) ciprofloxacin (ANXIETY 10/16/16) Triage Note: PT BIBA S/P SLIPPING GOING UP STAIRS, PT DENIES DIZZINESS, LOC. LANDED ON R SIDE, ECCHYMOSIS TO R [place]. DENIES OTHER COMPLAINTS. Triage Nurses Notes Reviewed? yes Onset: Abrupt Duration: week(s): (1), constant, continues in ED Timing: single episode today Severity: mild, moderate Severity Numbers: 6 Injuries/Fall Location: lower extremity Method of Injury: fall Loss of Consciousness: no loss of consciousness No Modifying Factors: none LMP (ages 10-50): post menopausal : No Patient currently breastfeeds: No HPI: 71-year-old female past medical history of CHF presents for evaluation after a fall. Patient's daughter reports that over the last week patient has become weak and fatigued. She has been having difficulty walking up and down steps. Earlier today patient was walking up the stairs when her right foot missed a step causing her to slowly fall onto her right side. Patient reports pain in her right lower leg and right hip that is worse with any type of movement. She did not hit her head and denies any head or neck pain. The fall was witnessed by her daughter. Patient denies any chest pain shortness of breath dizziness lightheadedness or presyncope before the fall. Daughter also reports that patient is currently being treated for UTI with Macrobid which she has been taking for the past few days. Patient is prone to UTIs. Patient reports that she feels "sick". She also feels very weak and fatigued. She does feel as though her legs are a little more swollen than usual. She denies any chest pain , shortness of breath, fevers, coughing, hemoptysis, back pain, neck pain, changes in vision, nausea, vomiting or any other associated symptoms. She rates pain as a 6 out of 10. Patient is seen in the emergency department multiple times the past few months for similar symptoms. (CONI ORTEGA,DELLA) Reconcile Medications Aripiprazole (Abilify) 2 MG TABLET 8 MG PO DAILY MENTAL HEALTH (Reported) Aspirin (Aspirin*) 81 MG TAB.CHEW 1 TAB PO DAILY HEART HEALTH (Reported) Azelastine HCl 137 MCG (0.1 %) SPRAY.PUMP 2 SPRAY NASB BID ALLERGIES ( Reported) Biotin 5 MG TABLET 1 TAB PO DAILY SUPPLEMENT (Reported) Cholecalciferol (Vitamin D3) (Vitamin D3) 2,000 UNIT TABLET 1 SGL PO DAILY SUPPLEMENT (Reported) Desloratadine (Clarinex) 5 MG TABLET 1 TAB PO DAILY ALLERGY (Reported) Divalproex Sodium 500 MG TABLET.DR 1 TAB PO BID MENTAL HEALTH (Reported) Furosemide (Lasix) 40 MG TABLET 1 TAB PO QAM CHF (Reported) Montelukast Sodium 10 MG TABLET 10 MG PO DAILY ALLERGIES (Reported) Nitrofurantoin Monohyd/M-Cryst (Macrobid 100 MG Capsule) 100 MG CAPSULE 1 CAP PO BID UTI (Reported) Potassium Chloride 20 MEQ TAB.ER.PRT 1 TAB PO DAILY SUPPLEMENT (Reported) Rosuvastatin Calcium (Crestor) 5 MG TABLET 5 MG PO DAILY CHOLESTROL (Reported ) (KASHIF GARCIA,JOSEPH) Past History Travel History Traveled to [place] past 21 day No Medical History Any Pertinent Medical History? 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 Yes (DELLA NEWBERRY PA-C) Review of Systems Review of Systems Constitutional: Reports: see HPI, malaise, weakness. Eyes: Reports: no symptoms. Ears, Nose, Throat, Mouth: Reports: no symptoms. Respiratory: Reports: no symptoms. Cardiovascular: Reports: no symptoms. Gastrointestinal/Abdominal: Reports: no symptoms. Genitourinary: Reports: no symptoms. Musculoskeletal: Reports: see HPI, joint pain, joint swelling, muscle pain. Skin: Reports: no symptoms. Neurological/Psychological: Reports: no symptoms. All Other Systems: Reviewed and Negative (DELLA NEWBERRY PA-C) Physical Exam Physical Exam General Appearance: well developed/nourished, no apparent distress, alert, awake , anxious, obese Head: atraumatic, normal appearance Eyes: Bilateral: normal appearance, PERRL, EOMI, normal inspection. Ears, Nose, Throat, Mouth: hearing grossly normal, moist mucous membrane, Tympanic normal Neck: normal inspection, supple, full range of motion, normal alignment Respiratory: normal breath sounds, chest non-tender, no respiratory distress, lungs clear Cardiovascular: regular rate/rhythm, normal peripheral pulses Peripheral Pulses: 2+ radial (R), 2+ radial (L), 2+ dorsalis pedis (R), 2+ dorsalis pedis (L) Gastrointestinal: normal bowel sounds, soft, non-tender, no organomegaly Back: normal inspection, normal range of motion, no vertebral tenderness Extremities: evidence of injury, limited range of motion, pain with movement, there is a large hematoma located on the lateral aspect of the right lower leg. pain with Palpation of the right hip. Range of motion of the right lower extremity is reduced due to pain. Neurovascular supply is intact. Neurologic/Psych: no motor/sensory deficits, awake, alert, oriented x 3, normal gait, normal mood/affect Skin: intact, normal color, warm/dry Core Measures ACS in differential dx? No Severe Sepsis Present: No Septic Shock Present: No (DELLA NEWBERRY PA-C) Progress Differential Diagnosis: C/T/L spine injury, ext injury, hip fracture, tibia fracture, fibula fracture, UTI, CHF and pneumonia Plan of Care: Orders Procedure Date/time Status CORTISOL AM 12/03 1100 Complete CORTISOL AM 12/03 1030 Complete CORTISOL AM 12/03 0930 Complete Discharge Patient 12/03 UNK Active Laboratory Tests 12/03/16 1100: Cortisol AM Sample 32.9 H 12/03/16 1035: Cortisol AM Sample 29.7 H 12/03/16 0938: Cortisol AM Sample 23.2 H There is bruising on the right lower extremity and patient is reporting pain in the right hip. She will have x-rays of the right lower extremity and right hip. Additionally she will basic blood work, chest x-ray EKG to evaluate her weakness AND fatigue. 9:38 PM: Blood work and x-rays are still pending.pt signed out to Florence Payan pending x-rays, labs and ability to ambulate. (CONI ORTEGA,DELLA) Diagnostic Imaging: Viewed by Me: Radiology Read. Initial ED EKG: NORMAL SINSU RHYTHM, LVH, NO ST OR T WAVE CHANGES Hand-Off Endorsed To: FLORENCE CORCORAN Endorsed Time: 2136 Pending: EKG, labs, other (pt able to ambulate?) (DELLA NEWBERRY PA-C) Radiology Impression: SERVICE DATE: 11/30/16 EXAM TYPE: RAD - XRY-HIP 2-3 VIEWS, RIGHT; XRY-PORTABLE CHEST XRAY; [id number], RIGHT EXAMINATION: Right hip, right tibia and fibula and chest. CLINICAL INFORMATION: Status post fall with right hip, right tibia and fibula pain. COMPARISON: Portable chest x- ray 11/16/2016. TECHNIQUE: 2 views of right hip an AP view of pelvis. 2 views of right tibia and fibula and 2 views of chest. FINDINGS: AP pelvis and right hip: There is normal symmetry of bilateral hip joints and SI joints. There is no visible acute fracture or dislocation on AP and frog-leg view right hip. There is shift heron seen in the right pelvis. Right tibia and fibula. There is no visible acute fracture or dislocation. The soft tissues are normal. CHEST: There is elevated right hemidiaphragm. Otherwise both lungs are well-expanded and clear. The heart size and pulmonary vascularity is normal. There is moderate spondylosis dorsal spine. IMPRESSION: Unremarkable AP pelvis and right hip exam. No visible acute fracture or dislocation seen. Unremarkable tibia and fibula. Elevated right hemidiaphragm but otherwise unremarkable chest exam. No change from 11/16/2016. DICTATED BY: PUSHPA LOPEZ MD DATE/TIME DICTATED:11/30/162133 COOK PRESSURE:NAA (FLORENCE CORCORAN) Departure Departure Condition: Stable Referrals: NEENA GARCIA,MARIA INES De Santiago (PCP/Family) Departure Forms: Customer Survey General Discharge Information (CONI ORTEGA,DELLA) Departure Disposition: STILL A PATIENT Clinical Impression Primary Impression: Hyponatremia Secondary Impressions: Multifactorial gait disorder Observation Note Physician Advisor Notified: TD RODRIGUEZ DO Place Patient In: Non-ED OBS Care Area Rationale for Observation: My rational for observation is as follows . Patient require IV fluids for sodium correction. Physical therapy consultation. Case management consultation. Patient cannot ambulate or walk any emergency room. She is unsafe to be discharged. She has a low sodium that will require further evaluation and workup as etiology is unclear at this time. (FLORENCE CORCORAN) Departure Time of Disposition: 2300 Observation Note Spoke With: AAMIR GARCIA,LIA PA/MINILAB OPERATOR Co-Sign Statement Statement: ED Attending supervision documentation- [X] I saw and evaluated the patient. I have also reviewed all the pertinent lab results and diagnostic results. I agree with the findings and the plan of care as documented in the PA's/MINILAB OPERATOR's documentation. [X] I have reviewed the ED Record and agree with the PA's/MINILAB OPERATOR's documentation. [] Additions or exceptions (if any) to the PAs/MINILAB OPERATOR's note and plan are summarized below: [] (KASHIF GARCIA,JOSEPH) URINE OSMOLALITY 11/30 1954 Complete URINE LYTES, SPOT 11/30 1954 Complete URINALYSIS 11/30 1940 Complete TROPONIN LEVEL 11/30 1940 Complete D-DIMER 11/30 1940 Complete COMPREHENSIVE METABOLIC PANEL 11/30 1940 Complete CBC WITHOUT DIFFERENTIAL 11/30 1940 Complete B-TYPE NATRIURETIC PEP (BNP) 11/30 1940 Complete EKG 11/30 1940 Active Intake & Output 11/30 1930 Active Current Medications Sig/Courtney Start time Last Medication Dose Stop Time Status Admin Aripiprazole 10 MG DAILY 12/01 1000 AC 12/01 (Abilify) 0840 Aspirin 81 MG DAILY 12/01 1000 AC 12/01 (Aspirin) 0841 Cholecalciferol 2,000 IU DAILY 12/01 1000 AC 12/01 (Vitamin D) 08 Divalproex Sodium 500 MG BID 12/01 1000 AC 12/01 (Depakote) 08 Enoxaparin Sodium 40 MG DAILY 12/01 1000 CAN (Lovenox) Enoxaparin Sodium 40 MG DAILY 12/01 1000 AC 12/01 (Lovenox) 08 Furosemide 40 MG QAM 12/01 1000 AC 12/01 (Lasix) 0841 Acetaminophen 650 MG Q6P PRN 12/01 07 AC (Tylenol) Acetaminophen/ 1 TAB Q6P PRN 12/01 07 AC Hydrocodone Bitart (Vicodin) Oxycodone/ 2 TAB Q6P PRN 12/01 07 AC Acetaminophen (Percocet) Loratadine 5 MG DAILY PRN 12/01 0400 AC (Claritin) Laboratory Tests 12/01/164: Anion Gap 2 L, Estimated GFR > 60, BUN/Creatinine Ratio 22.5, Vitamin B12 > 1000 H, 25-OH Vitamin D Total 33.6, TSH 0.900, CBC w Diff NO MAN DIFF REQ, RBC 2.94 L, MCV 86.8, MCH 29.0, RDW 19.9 H, MPV 7.0 L, Gran % 60.3, Lymphocytes % 28.3, Monocytes % 10.3 H, Eosinophils % 0.8, Basophils % 0.3, Absolute Granulocytes 3.1, Absolute Lymphocytes 1.5, Absolute Monocytes 0.5, Absolute Eosinophils 0, Absolute Basophils 0, PUBS MCHC 33.4 11/30/162024: Anion Gap 7, Estimated GFR > 60, BUN/Creatinine Ratio 26.3 H, Glucose 68, Serum Osmolality 272 L, Calcium 9.3, Total Bilirubin 0.3, AST 21, ALT 27, Alkaline Phosphatase 80, Troponin I < 0.01, Atv-I-Uyvjijhgtmy Pept 317 H, Total Protein 6.0 L, Albumin 3.5, Globulin 2.5, Albumin/Globulin Ratio 1.4, D-Dimer High Sensitivty 212, CBC w Diff NO MAN DIFF REQ, RBC 3.40 L, MCV 86.7, MCH 28.9, RDW 19.6 H, MPV 7.0 L, Gran % 79.9 H, Lymphocytes % 14.8 L, Monocytes % 4.7, Eosinophils % 0.2, Basophils % 0.4, Absolute Granulocytes 6.4, Absolute Lymphocytes 1.2, Absolute Monocytes 0.4, Absolute Eosinophils 0, Absolute Basophils 0, PUBS MCHC 33.3 11/30/161954: Urine Color YEL, Urine Clarity CLEAR, Urine pH 6.0, Ur Specific [place] 1.010, Urine Protein NEG, Urine Ketones NEG, Urine Nitrite NEG, Urine Bilirubin NEG, Urine Urobilinogen 0.2, Ur Leukocyte Esterase NEG, Ur Microscopic SEDIMENT EXAMINED, Urine RBC RARE, Urine WBC RARE, Ur Epithelial Cells FEW, Urine Bacteria FEW H, Urine Hemoglobin TRACE-INTACT, Urine Glucose NEG 11/30/161954: Urine Osmolality 277 L, Ur Random Creatinine 19.0, Ur Random Sodium 49, Ur Random Potassium 35.8, Fraction Sodium Excret 10.9 H There is bruising on the right lower extremity and patient is reporting pain in the right hip. She will have x-rays of the right lower extremity and right hip. Additionally she will basic blood work, chest x-ray EKG to evaluate her weakness AND fatigue. 9:38 PM: Blood work and x-rays are still pending.pt signed out to Florence Payan pending x-rays, labs and ability to ambulate. (DELLA NEWBERRY PA-C) Departure Departure Condition: Stable Referrals: NEENA GARCIA,MARIA INES De Santiago (PCP/Family) Departure Forms: Customer Survey General Discharge Information (DELLA NEWBERRY PA-C) Departure Disposition: STILL A PATIENT Clinical Impression Primary Impression: Hyponatremia Secondary Impressions: Multifactorial gait disorder Observation Note Physician Advisor Notified: TD RODRIGUEZ DO Place Patient In: Non-ED OBS Care Area Rationale for Observation: My rational for observation is as follows . Patient require IV fluids for sodium correction. Physical therapy consultation. Case management consultation. Patient cannot ambulate or walk any emergency room. She is unsafe to be discharged. She has a low sodium that will require further evaluation and workup as etiology is unclear at this time. (FLORENCE CORCORAN) Departure Time of Disposition: 2300 Observation Note Spoke With: AAMIR GARCIA,SITALAKSHMI PA/MINILAB OPERATOR Co-Sign Statement Statement: ED Attending supervision documentation- [X] I saw and evaluated the patient. I have also reviewed all the pertinent lab results and diagnostic results. I agree with the findings and the plan of care as documented in the PA's/MINILAB OPERATOR's documentation. [X] I have reviewed the ED Record and agree with the PA's/MINILAB OPERATOR's documentation. [] Additions or exceptions (if any) to the PAs/MINILAB OPERATOR's note and plan are summarized below: [] (KASHIF GARCIA,JOSEPH)
--- NOTE | 2016-11-30 19:30 | NUR ---
OUMOU HULL AT BEDSIDE TO EVAL PT AT THIS TIME.
--- NOTE | 2016-11-30 19:55 | NUR ---
PT VOIDED ON BEDPAN
--- NOTE | 2016-11-30 20:15 | NUR ---
URINE TRIO SENT EKG DONE
--- NOTE | 2016-11-30 20:29 | NUR ---
LABS SENT (BLUE,SST,LAV,FRAZIER)
[2016-11-30] MEDS ORDERED: DIVALPROEX SOD500 M2 PO (20:30)
[2016-11-30] MEDS ORDERED: ABILIFY2 MG PO (20:31)
[2016-11-30] MEDS ORDERED: BIOTIN5 M2 PO (20:32)
[2016-11-30] MEDS ORDERED: ZINC50 M2 PO (20:32)
[2016-11-30] MEDS ORDERED: NITROFURANTOIN100 M5 PO (20:32)
--- NOTE | 2016-11-30 20:32 | NUR ---
PT TO RADIOLOGY AT THIS TIME
[2016-11-30 20:33] LABS: ABSOLUTE BASOPHIL COUNT 0 /CUMM (0.0-0.2); ABSOLUTE EOSINOPHIL COUNT 0 /CUMM (0.0-0.7); ABSOLUTE GRANULOCYTE CT 6.4 /CUMM (1.4-6.5); ABSOLUTE LYMPH COUNT 1.2 /CUMM (1.2-3.4); ABSOLUTE MONOCYTE COUNT 0.4 /CUMM (0.10-0.60); BASOPHIL % 0.4 % (0.0-2.0); EOSINOPHIL % 0.2 % (0-5); GRANULOCYTE % 79.9 % (42.2-75.2); HEMATOCRIT 29.5 % (37-47); MEAN CORPUSCULAR HGB 28.9 PG (27.0-31.0); MEAN CORPUSCULAR HGB CONC 33.3 G/DL (33.0-37.0); MEAN CORPUSCULAR VOLUME 86.7 FL (81.0-99.0); PLATELET COUNT 200 /CUMM (130-400); RBC DISTRIBUTION WIDTH 19.6 % (11.5-14.5)
[2016-11-30] MEDS ORDERED: CRESTOR5 M1 PO (20:33)
[2016-11-30] MEDS ORDERED: MONTELUKAST SOD10 M1 PO (20:33)
--- NOTE | 2016-11-30 21:05 | NUR ---
PT BACK FROM RADIOLOGY.
--- NOTE | 2016-11-30 21:41 | RADIOLOGY REPORT ---
EXAMINATION: Right hip, right tibia and fibula and chest. CLINICAL INFORMATION: Status post fall with right hip, right tibia and fibula pain. COMPARISON: Portable chest x-ray 11/16/2016. TECHNIQUE: 2 views of right hip an AP view of pelvis. 2 views of right tibia and fibula and 2 views of chest. FINDINGS: AP pelvis and right hip: There is normal symmetry of bilateral hip joints and SI joints. There is no visible acute fracture or dislocation on AP and frog-leg view right hip. There is shift heron seen in the right pelvis. Right tibia and fibula. There is no visible acute fracture or dislocation. The soft tissues are normal. CHEST: There is elevated right hemidiaphragm. Otherwise both lungs are well-expanded and clear. The heart size and pulmonary vascularity is normal. There is moderate spondylosis dorsal spine. IMPRESSION: Unremarkable AP pelvis and right hip exam. No visible acute fracture or dislocation seen. Unremarkable tibia and fibula. Elevated right hemidiaphragm but otherwise unremarkable chest exam. No change from 11/16/2016.
--- NOTE | 2016-11-30 21:50 | NUR ---
OUMOU Kothari IN TO [facility] PT
--- NOTE | 2016-11-30 22:09 | NUR ---
AMBULATION TRIALED WITH PT PER REQUEST FROM OUMOU Kothari. PT UNABLE TO BEAR WEIGHT TO STAND FROM STRETCHER. OUMOU Kothari AWARE.
--- NOTE | 2016-11-30 23:35 | NUR ---
PT AWAITING ADMISSION
--- NOTE | 2016-12-01 00:03 | NUR ---
PT AWAITING D/C. NO ACUTE DISTRESS NOTED
--- NOTE | 2016-12-01 00:55 | History & Physical ---
General Information and HPI Allergies/Medications Allergies: Coded Allergies: Sulfa (Sulfonamide Antibiotics) (Intermediate, FACIAL EDEMA 10/16/16) azithromycin (Intermediate, THROAT CLOSURE 10/16/16) egg (Intermediate, SWOLLEN RED EYES 10/16/16) atorvastatin (UNKNOWN 10/16/16) lactose (UNKNOWN 10/16/16) ciprofloxacin (ANXIETY 10/16/16) Home Med list Aripiprazole (Abilify) 2 MG TABLET 8 MG PO DAILY MENTAL HEALTH (Reported) Aspirin (Aspirin*) 81 MG TAB.CHEW 1 TAB PO DAILY HEART HEALTH (Reported) Azelastine HCl 137 MCG (0.1 %) SPRAY.PUMP 2 SPRAY NASB BID ALLERGIES ( Reported) Biotin (Unknown Strength) TABLET (Unknown Dose) PO DAILY SUPPLEMENT (Reported ) Cholecalciferol (Vitamin D3) (Vitamin D3) 2,000 UNIT TABLET 1 SGL PO DAILY SUPPLEMENT (Reported) Desloratadine (Clarinex) 5 MG TABLET 1 TAB PO DAILY ALLERGY (Reported) Divalproex Sodium 500 MG TABLET.DR 1 TAB PO BID MENTAL HEALTH (Reported) Furosemide (Lasix) 40 MG TABLET 1 TAB PO QAM CHF (Reported) Montelukast Sodium (Unknown Strength) TABLET (Unknown Dose) UNKNOWN (Reported ) Nitrofurantoin Macrocrystal (Nitrofurantoin) 100 MG CAPSULE 1 CAP PO BID ANTIBIOTIC (Reported) Potassium Chloride 20 MEQ TAB.ER.PRT 1 TAB PO DAILY SUPPLEMENT (Reported) Rosuvastatin Calcium (Crestor) (Unknown Strength) TABLET (Unknown Dose) UNKNOWN (Reported) ZINC (Unknown Strength) TABLET (Unknown Dose) PO DAILY SUPPLEMENT (Reported) Past History Travel History Traveled to [place] past 21 day No Medical History Neurological: dizziness, vertigo, altered mental status secondary to polypharmacy EENT: allergies, CHRONIC SINUS PROBLEMS Cardiovascular: stage I diastolic congestive heart failure Respiratory: NONE Gastrointestinal: NONE Hepatic: elevated transaminases in the past Renal: NONE Musculoskeletal: degenerative knee arthritis "NO ROTATOR CUFF" R ARM Psychiatric: bipolar disease, schizophrenia Endocrine: iodine radiotherapy for thyroid goiter Blood Disorders: NONE Cancer(s): BREAST CA s/p right lumpectomy (breast cancer, status post rig) 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
--- NOTE | 2016-12-01 01:02 | NUR ---
HOUSE STAFF AT BEDSIDE
--- NOTE | 2016-12-01 01:43 | History & Physical ---
[facility] GARCIA,[facility] 12/01/16 0143: General Information and HPI MD Statement: I have seen and personally examined BUD MAX and documented this H&P. The patient is a 71 year old F who presented with a patient stated chief complaint of low sodium/ weakness/ fall. Source of Information: patient, old records Exam Limitations: no limitations History of Present Illness: Ms Max is a 71-year-old female with significant past medical history of recurrent episodes of hypothermia, weakness and difficulty swallowing as well as CVA, CHF, bipolar disorder, chronic pedal edema, breast cancer s/p radiation who presented to the emergency department at [facility] at 11/30/2016 complaining of weakness. Reports from the emergency department stated that the patient also experienced a fall. She was going up stairs and had a fall. Patient denies any loss of consciousness. She denies any head trauma. She denies any bowel or bladder incontinence. At this time our clinical encounter the patient reports feeling increasingly weak and fatigued. She also constantly inquires about why her sodium is so low. She states that she has not found a solution behind this low sodium and is very concerned about this. In addition to the above the patient was also recently started on a antibiotic for a UTI. She states that she's been taking this for the last 2 weeks. She is unsure on who prescribed for her. Patient states that she was following up with Dr. Aguirre however has since been looking for new primary care physician. Allergies/Medications Allergies: Coded Allergies: Sulfa (Sulfonamide Antibiotics) (Intermediate, FACIAL EDEMA 10/16/16) azithromycin (Intermediate, THROAT CLOSURE 10/16/16) egg (Intermediate, SWOLLEN RED EYES 10/16/16) atorvastatin (UNKNOWN 10/16/16) lactose (UNKNOWN 10/16/16) ciprofloxacin (ANXIETY 10/16/16) Home Med list Aripiprazole (Abilify) 2 MG TABLET 8 MG PO DAILY MENTAL HEALTH (Reported) Aspirin (Aspirin*) 81 MG TAB.CHEW 1 TAB PO DAILY HEART HEALTH (Reported) Azelastine HCl 137 MCG (0.1 %) SPRAY.PUMP 2 SPRAY NASB BID ALLERGIES ( Reported) Biotin 5 MG TABLET 1 TAB PO DAILY SUPPLEMENT (Reported) Cholecalciferol (Vitamin D3) (Vitamin D3) 2,000 UNIT TABLET 1 SGL PO DAILY SUPPLEMENT (Reported) Desloratadine (Clarinex) 5 MG TABLET 1 TAB PO DAILY ALLERGY (Reported) Divalproex Sodium 500 MG TABLET.DR 1 TAB PO BID MENTAL HEALTH (Reported) Furosemide (Lasix) 40 MG TABLET 1 TAB PO QAM CHF (Reported) Montelukast Sodium 10 MG TABLET 10 MG PO DAILY ALLERGIES (Reported) Nitrofurantoin Macrocrystal (Nitrofurantoin) 100 MG CAPSULE 1 CAP PO BID ANTIBIOTIC (Reported) Nitrofurantoin Monohyd/M-Cryst (Macrobid 100 MG Capsule) 100 MG CAPSULE 1 CAP PO BID UTI (Reported) Potassium Chloride 20 MEQ TAB.ER.PRT 1 TAB PO DAILY SUPPLEMENT (Reported) Rosuvastatin Calcium (Crestor) 5 MG TABLET 5 MG PO DAILY CHOLESTROL (Reported ) Compliance With Home Meds: GOOD Past History Travel History Traveled to [place] past 21 day No Medical History Neurological: dizziness, vertigo, altered mental status secondary to polypharmacy EENT: allergies, CHRONIC SINUS PROBLEMS Cardiovascular: stage I diastolic congestive heart failure Respiratory: NONE Gastrointestinal: NONE Hepatic: elevated transaminases in the past Renal: NONE Musculoskeletal: degenerative knee arthritis "NO ROTATOR CUFF" R ARM Psychiatric: bipolar disease, schizophrenia Endocrine: iodine radiotherapy for thyroid goiter Blood Disorders: NONE Cancer(s): BREAST CA s/p right lumpectomy (breast cancer, status post rig) HEATER OPERATOR/Reproductive: NONE History of MRSA: No History of VRE: No History of CDIFF: No Surgical History Surgical History: cholecystectomy, Past Family/Social History Family History Relations & Conditions if any Relation not specified for: *No pertinent family history Psychosocial History Where do you live? Home Who Do You Live With? child Services at Home: Home Health Aide Primary Language: Georgian Smoking Status: Never Smoked Review of Systems Review of Systems Constitutional: Reports: see HPI, weakness. Denies: diaphoresis, fever, malaise. Exam & Diagnostic Data Last 24 Hrs of Vital Signs/I&O Vital Signs Date Time Temp Pulse Resp B/P B/P Pulse O2 O2 Flow FiO2 Mean Ox Delivery Rate 12/01 0340 97.4 62 22 122/82 95 Room Air 12/01 0218 97.0 68 16 110/63 97 Room Air 12/01 0102 Room Air 12/01 0034 97.0 71 16 104/56 98 Room Air 11/30 2245 97.3 69 16 103/54 97 Room Air 11/30 2020 Room Air 11/30 2020 97.1 73 16 106/53 96 Room Air 11/30 1914 97.3 65 16 97/52 96 Room Air Intake & Output 12/01 0800 12/01 0000 11/30 1600 Intake Total 0 Output Total Balance 0 Intake, Oral 0 Patient 65.771 kg Weight Weight Estimated Measurement Method Physical Exam General Appearance Alert, Oriented X3, Cooperative, No Acute Distress HEENT PERRLA, EOMI, Mucous Membr. moist/pink Lymphatic Cervical nl Cardiovascular Normal S1, Normal S2 Lungs Bilaterral Basillar Crackles. Abdomen Normal Bowel Sounds, Soft, No Tenderness Neurological Normal Speech, Strength at 5/5 X4 Ext, Cranial Nerves 3-12 NL Extremities Generalized Edema. Ecchmotic lesion noted on right lateral saldana. Approxmately 5 cm X 5 cm. Vascular Normal Pulses Body Front and Back (Adult) 1) Eccymotic area, 5 cm X 5 cm Assessment/Plan Assessment: Ms Max is a 71-year-old female with significant past medical history of recurrent episodes of hypothermia, weakness and difficulty swallowing as well as CVA, CHF, bipolar disorder, chronic pedal edema, breast cancer s/p radiation who presented to the emergency department at [facility] at 11/30/2016 complaining of weakness. Would admit the patient to general medicine. #Hyponatremia At the time of presentation the patient did have sodium level 127. Repeat BEP in a.m. Urine osmolarity, urine lytes, serum osmolarity ordered. Consider nephrology consultation in a.m. 1 bag of normal saline at 75 per hour was ordered. #Fall/gait instability Physical therapy and assessment in a.m. Monitor electrolytes. TSH, B12, vitamin D, magnesium. #Schizoaffective disorder History of bipolar disorder, MDD and anxiety with psychotic features Continue aripiprazole (anti-psychotic), 10 mg. #History of CVA No new neurological deficits noted. continue on aspirin consider adding statin #History of CHF History of stage diastolic heart failure. Continue lasix 40 mg #Diet Heart Healthy #DVT px SC lovenox #FULL CODE As Ranked By This Provider Problem List: 1. Bipolar disorder 2. Obesity 3. Dizziness Core Measures/Miscellaneous Acute Coronary Syndrome ACS Diagnosis: No Cerebrovascular Accident CVA/TIA Diagnosis: No Congestive Heart Failure CHF Diagnosis: No VTE (View Protocol) VTE Risk Factors: Age > 40 No Mech VTE prophylaxis d/t: No contraindications No VTE Pharm Prophylaxis d/t: No contraindications VTE Diagnosis: No VTE Type: NONE VTE Confirmed by (Test): NONE Sepsis (View Protocol) Severe Sepsis Present: No Septic Shock Septic Shock Present: No Miscellaneous Documentation Attending Case Discussed With: [facility] Primary Care Physician: MARIA INES CHAUDHARY MD Patient sees these Specialists NA Level of Patient Care: General Medicine [facility]01/16 0548: Attending MD Review Statement Attending Statement Attending MD Statement: examined this patient, discuss w/resident/PA/LIMB DRIVER, agreed w/resident/PA/LIMB DRIVER Attending Assessment/Plan: 71 yo F with h/o schizophrenia, bipolar disorder, depression, diastolic CHF, thyroid goitre s/p radioactive iodine Rx and breast cancer s/p lumpectomy, recurrent episodes of hypothermia of unclear etiology, CVA (Jul 2015), is brought in for evaluation of fall. Patient reports feeling weak, fatigued and recalls sliding down the stairs hurting her right leg. Denies LOC or head strike. According to ER notes, patient is currently being treated for UTI with macrobid (no med claim history though). Of note, patient has been in the ER multiple times this year and has been sent to SNF for deconditioning. VSS. Exam: MMM, flat affect, LE: b/l 2+ edema, with ecchymosis noted to right anterolateral aspect of leg. Labs: H/H 9.8/29.5, Na 127, bicarb 32, BUN 21, trop neg. UA clear. EKG: SR, LVH. CXR: elevated right hemidiaphgram, Xray pelvis/ right hip/ tib-fib: no fracture. 1. Gait instability, fall, physical deconditioning. GM 23 Obs, fall precautions, check TSH, B12, vit D levels and replete as needed. PT eval and possible placement. 2. Hyponatremia (baseline is 127-133). I do not think this is acute but actually chronic hyponatremia, of uncelear etiology. Will check urine and serum osm, urine lytes. Gentle hydration, trend sodium levels. 3. Recent UTI treated with ?macrobid. I do not see this in the med claim history. We need to confirm this with patient's daughter in AM and assess how many doses remaining. For now, UA is clear and patient is asymptomatic, so am monitoring off antibiotics. DVT ppx Lovenox. Full code. Confirm CMR in AM and resume all home meds. Observation Initial Note - I have personally examined BUD MAX on 12/01/16 at 0631. The disposition of BUD MAX is uncertain at this time and before a determination can be made, she requires a period of observation for the following reasons [Fall, gait instability, hyponatremia work up.]
--- NOTE | 2016-12-01 02:25 | NUR ---
PT SLEEPING, REGULAR RR NOTED
--- NOTE | 2016-12-01 02:44 | NUR ---
PT BED ASSIGNMENT 201-1
--- NOTE | 2016-12-01 03:07 | NUR ---
RPORT GIVEN TO SARA JOHNSON
[2016-12-01 03:40] VITALS: BP 122/82
[2016-12-01 07:10] VITALS: BP 92/46
[2016-12-01 08:18] LABS: ABSOLUTE BASOPHIL COUNT 0 /CUMM (0.0-0.2); ABSOLUTE EOSINOPHIL COUNT 0 /CUMM (0.0-0.7); ABSOLUTE GRANULOCYTE CT 3.1 /CUMM (1.4-6.5); ABSOLUTE LYMPH COUNT 1.5 /CUMM (1.2-3.4); ABSOLUTE MONOCYTE COUNT 0.5 /CUMM (0.10-0.60); BASOPHIL % 0.3 % (0.0-2.0); EOSINOPHIL % 0.8 % (0-5); GRANULOCYTE % 60.3 % (42.2-75.2); HEMATOCRIT 25.5 % (37-47); MEAN CORPUSCULAR HGB CONC 33.4 G/DL (33.0-37.0); MEAN CORPUSCULAR VOLUME 86.8 FL (81.0-99.0); PLATELET COUNT 175 /CUMM (130-400); RBC DISTRIBUTION WIDTH 19.9 % (11.5-14.5); RED BLOOD CELL CT 2.94 /CUMM (4.20-5.40); WHITE BLOOD CELL COUNT 5.1 /CUMM (4.8-10.8)
[2016-12-01 08:42] VITALS: BP 112/60
--- NOTE | 2016-12-01 09:57 | NUR ---
LATE ENTRY FOR 12/01/16 0330 OBSERVATION PT SETTLED INTO RM 201. AOX3. HL TO L HAND. LARGE BRUISING TO R OUTER CHINO AREA. CALL CAPONE IN REACH.
--- NOTE | 2016-12-01 09:59 | NUR ---
[address] HICKS BP THIS MORNING 92/52 HR 58. PT IS NOT DIZZY OR LIGHTHEADED. NO NEW ORDERS AT THIS TIME. WILL MONITOR.
--- NOTE | 2016-12-01 10:28 | Event Note ---
Event Note Event Note: Brief daily note: S: Ms Max is a 71-year-old female with significant past medical history of recurrent episodes of hypothermia, weakness and difficulty swallowing as well as CVA, CHF, bipolar disorder, chronic pedal edema, breast cancer s/p radiation who presented to the emergency department at [facility] at 11/30/2016 complaining of weakness. B: She is feeling a little down. She is very upset that she keeps having to come to the hospital for her low sodium, and is upset about the cost of coming here repeatedly. She is worried about paying for her stay. She is also upset that she has to spend the holidays in the hospital. Otherwise, she is complaining of a headache and leg pain, 5/10. She also mentions that she has had diarrhea for the past 6 months approximately. On exam, she does seem slightly overloaded with bilateral 2+ pitting edema in LE. Heart sounds normal, S1, S2, lungs CTAB, no crackles. No abdominal pain. A/P: She is on extended observation status. Monitored to see if Na improved and if her mobilitiy improves. #Fall/gait instability -Physical therapy -Monitor electrolytes. #Hyponatremia At the time of presentation the patient did have sodium level 127. Now 131. Low serum Osm and high urine Na. -Not symtomatic. She likely has chronic hyponatremia and does not need acute treatment. -Consider renal consult tomorrow. -Stop fluids #Depression: She is upset about her situation, especially the financial costs. -Consider psych consult or spiritual consult. #Schizoaffective disorder History of bipolar disorder, MDD and anxiety with psychotic features -Continue aripiprazole (anti-psychotic), 10 mg. #History of CVA No new neurological deficits noted. -continue on aspirin -consider adding statin #History of CHF History of stage diastolic heart failure. -Continue lasix 40 mg #Diet Heart Healthy #DVT px SC lovenox #FULL CODE Patient seen and examined. Agree with investigator internal affairs's note. Pt is very focused on her sodium and is very upset that she has these periods of low sodium. I tried explaining to her at length that her hyponatremia is mild and there is a chronic component to it but really what's prompting her to come to the hospital his progressive weakness and unsafe at home with this observation stay also been prompted by a fall down the stairs and bruising of her right outer saldana. Her pressure was borderline in the ER and hence she was hydrated. I think she is a hypervolemic hyponatremia. I'll stop the fluids and continue her Lasix. Her sodium is already up to 131. Her numbers are a little bit confusing with a low serum also, low urine Osm and high urine sodium, obviously being on Lasix makes these numbers unreliable. At this point given all of her multiple comorbidities , fall and the physical therapist saying that she could barely stand or walk, she is unsafe for a home discharge. I'm going to extended observation status. Observing her to see if as a sodium improves and as she gets physical therapy here, that her mobility improves. Observation Initial Note - I have personally examined BUD MAX on 12/01/16 at 1050. The disposition of BUD MAX is uncertain at this time and before a determination can be made, she requires a period of observation for the following reasons Weakness and difficulty with ambulation, seen by PT. Unsafe to go home due to mobility issues.
[2016-12-01 14:48] VITALS: BP 100/60
[2016-12-01] MEDS ORDERED: MACROBID 100 M100 MG PO (16:30)
--- NOTE | 2016-12-01 21:04 | Event Note ---
Event Note Event Note: S: I was paged by nurse because family was concerned about pt's hyponatremia and holding of macrobid. B: Pt is a 71 y/o female with PMH of recurrent episodes of hypothermia, weakness and difficulty swallowing as well as CVA, CHF, bipolar disorder, chronic pedal edema, breast cancer s/p radiation. Pt's daughter (Renea:[phone]) expressed concerns about the hyponatremia. States it has been a problem for a long period of time and the pt and family are frustrated that no etiology of the hyponatremia has been determined. She also voiced concerns about withholding pt' s macrobid as pt is prone to frequent UTIs. Spoke to family at length, explained that pt is likely to have chronic hyponatremic as she has lived with a low sodium level for quite some time. Notified family that pt's sodium has increased (127 --> 131) after holding fluids and starting lasix. Daughter agreed that pt did have bilateral edema. Also notifed pt and her family that nephrology has been consulted and will be seeing pt tomorrow. Daughter would like to remain updated about progress and will be visiting pt tomorrow afternoon. Also explained to the daughter that certain meds were not given/held in order to confirm them prior to giving to patient. Daughter brought paperwork from the rehab facility with her that included an updated list of meds. A/R: Pt is a 71 y/o female w/ PMH of chronic hyponatremia with multiple bouts of weakness and lethargy in the past with no clear etiology of hyponatremia. Hyponatremia: - pt's sodium is improving on lasix - nephrology consulted - daughter informed. Please update her after nephrology's recommendations are received. Medications: - meds were updated - pt requires 4 more days of nitrofuantoin 100mg PO BID to complete a 7 day course - also Abilify was changed from 10mg to 8 mg which is the dose pt takes at home
[2016-12-01 21:52] VITALS: BP 130/68
--- NOTE | 2016-12-01 22:28 | NUR ---
PATIENT PLACED ON SIZEWISE.
[2016-12-02 06:45] VITALS: BP 142/70
--- NOTE | 2016-12-02 07:07 | PN- Housestaff ---
CHANA GARCIA,DELLA 12/02/16 0706: Subjective Follow-up For: Fall, hyponatremia Subjective: Patient's family was concerned yesterday about her hyponatremia (see event note) . Her medications were confirmed and the macrobid was restarted (4 more days). She is very concerned about why she is weak, and blames it on her sodium. She has no pain currently, but notes the bruise on her right calf. Review of Systems Constitutional: Reports: see HPI, weakness. Cardiovascular: Denies: no symptoms. Respiratory: Denies: no symptoms. Gastrointestinal: Denies: no symptoms. Genitourinary: Denies: no symptoms. Musculoskeletal: Reports: see HPI. Skin: Reports: see HPI. Objective Last 24 Hrs of Vital Signs/I&O Vital Signs Date Time Temp Pulse Resp B/P B/P Pulse O2 O2 Flow FiO2 Mean Ox Delivery Rate 12/02 921 94.7 12/02 0922 94.2 12/02 0754 94.5 12/02 0753 93.7 12/02 0645 94.9 57 20 142/70 97 Room Air 12/01 2152 98.6 88 19 130/68 96 / 1600 96 Room Air 12/01 1448 97.1 70 20 100/60 96 Room Air Intake & Output 12/02 1600 / 0800 12/02 0000 Intake Total 10 500 Output Total 400 400 Balance -390 100 Intake, IV 10 Intake, Oral 500 Output, Urine 400 400 Physical Exam General Appearance: Alert, Oriented X3, Cooperative, No Acute Distress, Wrapped in multiple blankets. Cardiovascular: Regular Rate, Normal S1, Normal S2, No Murmurs Lungs: Clear to Auscultation Abdomen: Normal Bowel Sounds, Soft, No Masses Neurological: Normal Speech Extremities: Large contusion on right calf., 2+ pitting edema bilaterally Current Medications: Current Medications Sig/Courtney Start time Last Medication Dose Route Stop Time Status Admin Acetaminophen 650 MG Q6P PRN 12/01 0715 AC 12/01 PO 1129 Acetaminophen/ 1 TAB Q6P PRN 12/01 0715 AC Hydrocodone Bitart PO Aripiprazole 8 MG DAILY 12/03 1000 AC PO Aripiprazole 8 MG DAILY 12/02 1000 DC 12/02 PO 0958 Aripiprazole 10 MG DAILY 12/01 1000 DC 12/01 PO 0840 Aspirin 81 MG DAILY 12/01 1000 AC 12/02 PO 1001 Cholecalciferol 2,000 IU DAILY 12/01 1000 AC 12/02 PO 1006 Divalproex Sodium 500 MG BID 12/01 2200 AC 12/02 PO 1001 Divalproex Sodium 500 MG BID 12/01 1000 DC 12/01 PO 0841 Enoxaparin Sodium 40 MG DAILY 12/01 1000 AC 12/02 SC 1005 Furosemide 40 MG QAM 12/01 1000 AC 12/02 PO 1005 Loratadine 5 MG DAILY PRN 12/01 0400 AC PO Nitrofurantoin 100 MG BID 12/01 2200 AC 12/02 PO 1006 Oxycodone/ 2 TAB Q6P PRN 12/01 0715 AC Acetaminophen PO Senna/Docusate Sodium 1 TAB BID PRN 12/01 1145 AC 12/01 PO 1325 Last 24 Hrs of Lab/Neo Results Last 24 Hrs of Labs/Mics: Laboratory Tests 12/02/16 0610: Anion Gap 5, Estimated GFR > 60, BUN/Creatinine Ratio 36.7 H, CBC w Diff NO MAN DIFF REQ, RBC 3.08 L, MCV 87.1, MCH 29.2, RDW 20.5 H, MPV 7.6, Gran % 49.7, Lymphocytes % 41.0, Monocytes % 7.6, Eosinophils % 1.2, Basophils % 0.5, Absolute Granulocytes 2.8, Absolute Lymphocytes 2.3, Absolute Monocytes 0.4, Absolute Eosinophils 0.1, Absolute Basophils 0, PUBS MCHC 33.5 Assessment/Plan Assessment: A/P: Ms Max is a 71-year-old female with significant past medical history of recurrent episodes of hypothermia, weakness and difficulty swallowing as well as CVA, CHF, bipolar disorder, chronic pedal edema, breast cancer s/p radiation who presented to the emergency department at [facility] at 11/30/2016 complaining of weakness. She is on extended observation status. Monitored to see if Na improved and if her mobilitiy improves. #Fall/gait instability: Unclear why she is falling/weak. Her electrolytes abrnomalities probably do not explain it. She is older and potentially has an aspect of physical deconditioning. She has also had a CVA with extensive cardiac history. -Physical therapy -Monitor electrolytes. #UTI: On macrobid, day 09/04. -Continue macrobid for 7 day course. #Hyponatremia At the time of presentation the patient did have sodium level 127. Now 136, which is almost normal. She is very fixated on her sodium levels and thinks this is causing her weakness. -Not symtomatic. She likely has chronic hyponatremia and does not need acute treatment. -Consider renal consult tomorrow. -Stop fluids #Right calf contusion: healing. -continue to monitor. #Depression: She is upset about her situation, especially the financial costs. -Consider psych consult or spiritual consult. #Schizoaffective disorder History of bipolar disorder, MDD and anxiety with psychotic features -Continue aripiprazole (anti-psychotic), 10 mg. -Outpatient follow up to review meds. #History of CVA No new neurological deficits noted. -continue on aspirin -consider adding statin #History of CHF History of stage diastolic heart failure. -Continue lasix 40 mg #Diet Heart Healthy #DVT px SC lovenox #FULL CODE Problem List: 1. Hypothermia 2. Contusion Pain Ratin Pain Location: No pain Pain Goal: Remain pain free Pain Plan: percoset Tomorrow's Labs & Rationales: None. Discharge Plan Anticipated Discharge (Day): tomorrow ORALIA ENRIQUEZ MD 12/02/16 1347: Attending MD Review Statement Attending Statement Attending MD Statement: examined this patient, discuss w/resident/PA/OPERATIONS ADMINISTRATIVE ASSISTANT, agreed w/resident/PA/OPERATIONS ADMINISTRATIVE ASSISTANT, reviewed EMR data (avail) Attending Assessment/Plan: 71F PMH schizophrenia, bipolar disorder, depression, diastolic CHF, thyroid goitre s/p radioactive iodine Rx and breast cancer s/p lumpectomy, recurrent episodes of hypothermia of unclear etiology, CVA (Jul 2015) brought in for fall and unsteady gait. Had been treated as outpatient with Macrobid with urine culture growing Citrobacter. Sodium 127 on admission, improved to 136 today, labs show multifactorial etiology including SIADH and poor salt intake. Do not suspect hyponatremia as cause of unsteady gait and fall. Weakness and fall etiology likely multifactorial as well. Plan - Follow PT recommendations - Continue Macrobid to complete 7 day course - Continue home medications - Follow up with psychiatry as outpatient for review of medications - Anticipated discharge today or tomorrow morning
[2016-12-02 07:52] LABS: ABSOLUTE BASOPHIL COUNT 0 /CUMM (0.0-0.2); ABSOLUTE EOSINOPHIL COUNT 0.1 /CUMM (0.0-0.7); ABSOLUTE GRANULOCYTE CT 2.8 /CUMM (1.4-6.5); ABSOLUTE LYMPH COUNT 2.3 /CUMM (1.2-3.4); ABSOLUTE MONOCYTE COUNT 0.4 /CUMM (0.10-0.60); BASOPHIL % 0.5 % (0.0-2.0); EOSINOPHIL % 1.2 % (0-5); GRANULOCYTE % 49.7 % (42.2-75.2); HEMATOCRIT 26.8 % (37-47); MEAN CORPUSCULAR HGB 29.2 PG (27.0-31.0); MEAN CORPUSCULAR HGB CONC 33.5 G/DL (33.0-37.0); MEAN CORPUSCULAR VOLUME 87.1 FL (81.0-99.0); MEAN PLATELET VOLUME 7.6 FL (7.4-10.4); PLATELET COUNT 196 /CUMM (130-400); RBC DISTRIBUTION WIDTH 20.5 % (11.5-14.5); RED BLOOD CELL CT 3.08 /CUMM (4.20-5.40); WHITE BLOOD CELL COUNT 5.7 /CUMM (4.8-10.8)
--- NOTE | 2016-12-02 07:56 | NUR ---
NURSING NOTE: ASSUMED CARE OF PT AT THIS TIME,DURING BEDSIDE REPORT ORAL TEMP RECHECK; ORAL TEMP 93.7, RECTAL TEMP 94.5. DELLA GARCIA #[id number] CALLED AND MADE AWARE, PT AWAKE, A/OX3, C/O "FEELING COLD" ROOM TEMPERATURE INCREASED TO 80 DEGREES. PT COVERED WITH 3 EXTRA BLANKETS. AWAITING EVAL FROM ASSOCIATE VICE PRESIDENT
--- NOTE | 2016-12-02 09:11 | NUR ---
LATE ENTRY FOR 629 TODAY THIS SN INFORMED BY MST THAT ORAL TEMP WAS 93.7, THIS SN ASSESSED PATIENT AND PATIENT IS AWAKE, A+OX3. MST HAD JUST COMPLETED ASSISTING PATIENT WITH BED MARTÍNEZ AND PATIENT C/O BEING COLD WITHOUT COVERS ON. SKIN WAS COOL TO TOUCH. RECTAL TEMP TAKEN AND = 94.9. PATIENT WAS RECOVERED AND EXTRA BLANKET APPLIED. RICE SOCKS WARMED AND PLACED AROUND PATIENT. ROOM TEMPERATURE INCREASED. REPORT GIVEN TO ONCOMING SN AND TEMP RECHECKED WITHOUT SIG IMPROVEMENT. PROVIDER PAGED AND ARRIVED TO FLOOR TO ASSESS PATIENT. PATIENT STILL AWAKE, A+OX3. SEE FOLLOWING SN NOTE FOR FURTHER FOLLOW-THROUGH.
[2016-12-02 14:18] VITALS: BP 140/70
--- NOTE | 2016-12-02 14:36 | Patient Discharge Instructions ---
Discharge Instructions General Discharge Information You were seen/treated for: Low temperature (hypothermia) Hyponatremia (low-sodium) Urinary tract infection Special Instructions: Please follow-up with your PCP within one week after discharge. Please follow-up with Dr. sumner (endocrinology) within 1-2 weeks of discharge. Please have the blood work done within the next 3 days and have results sent to PCP/psychiatrist to monitor sodium level. Diet Continue normal diet: Yes Activity Activity Self Limited: Yes Acute Coronary Syndrome Inclusion Criteria At DC or during hospital stay patient has or had the following: ACS DIAGNOSIS No Discharge Core Measures Meds if any: Prescribed or Continued at Discharge Meds if any: NOT Prescribed or Continued at Discharge Congestive Heart Failure Inclusion Criteria At DC or during hospital stay patient has or had the following: CHF DIAGNOSIS No Discharge Core Measures Meds if any: Prescribed or Continued at Discharge Meds if any: NOT Prescribed or Continued at Discharge Cerebrovascular accident Inclusion Criteria At DC or during hospital stay patient has or had the following: CVA/TIA Diagnosis No Discharge Core Measures Meds if any: Prescribed or Continued at Discharge Meds if any: NOT Prescribed or Continued at Discharge Venous thromboembolism Inclusion Criteria VTE Diagnosis No VTE Type NONE VTE Confirmed by (Test) NONE Discharge Core Measures - Per Current guidelines, there needs to be overlap - treatment for the first 5 days of Warfarin therapy. - If discharged on Warfarin prior to 5 days of - overlap therapy, the patient will need to be - assessed for post discharge needs including - *Post discharge parental anticoagulation - *Warfarin and/or parental anticoagulation education - *Follow up date to check INR post discharge At least 5 days overlap therapy as Inpatient No Meds if any: Prescribed or Continued at Discharge Note: Overlap Therapy is Warfarin and Anticoagulant Meds if any: NOT Prescribed or Continued at Discharge
--- NOTE | 2016-12-02 20:40 | Cons- Endocrinology ---
General Information and HPI Consulting Request Date of Consult: 12/02/16 Requested By: medical team Reason for Consult: evaluation of hyponatremia and hypothermia Source of Information: patient Exam Limitations: no limitations History of Present Illness: Patient is a 71-year-old female with significant past medical history of recurrent episodes of hypothermia, weakness and difficulty swallowing, CVA, CHF, bipolar disorder, chronic pedal edema, breast cancer s/p radiation, who presented to the emergency department at [facility] at 11/30/2016 complaining of weakness. She was admitted to for several times in 2015 for similar symptoms. The endocrine workup done in July 2015 showed a possible pituitary disorder because the patient's LH and FSH were low in this postmenopausal woman. In addition the patient's TSH was normal but free T4 was in the lower end of the normal range. Her am cortisol levels were also on the lower end of the normal range. The question of secondary hypothyroidism and secondary adrenal insufficiency was raised. However, the patient's daughter did not want any treatment for possible pituitary disease at that time. In 10/2015, repeat endocrine work-up was done which showed normal am cortisol of 20.3 and normal TFT, but her FSH and LH remained low suggestive of pituitary or hypothalamus dysfunction. During this admission in 04/2016, her am cortisol was 15.8, TSH 1.33, free T4 1.29 and TT3 1.02. Allergies/Medications Allergies: Coded Allergies: Sulfa (Sulfonamide Antibiotics) (Intermediate, FACIAL EDEMA 10/16/16) azithromycin (Intermediate, THROAT CLOSURE 10/16/16) egg (Intermediate, SWOLLEN RED EYES 10/16/16) atorvastatin (UNKNOWN 10/16/16) lactose (UNKNOWN 10/16/16) ciprofloxacin (ANXIETY 10/16/16) Home Med List: Aripiprazole (Abilify) 2 MG TABLET 8 MG PO DAILY MENTAL HEALTH (Reported) Aspirin (Aspirin*) 81 MG TAB.CHEW 1 TAB PO DAILY HEART HEALTH (Reported) Azelastine HCl 137 MCG (0.1 %) SPRAY.PUMP 2 SPRAY NASB BID ALLERGIES ( Reported) Biotin 5 MG TABLET 1 TAB PO DAILY SUPPLEMENT (Reported) Cholecalciferol (Vitamin D3) (Vitamin D3) 2,000 UNIT TABLET 1 SGL PO DAILY SUPPLEMENT (Reported) Desloratadine (Clarinex) 5 MG TABLET 1 TAB PO DAILY ALLERGY (Reported) Divalproex Sodium 500 MG TABLET.DR 1 TAB PO BID MENTAL HEALTH (Reported) Furosemide (Lasix) 40 MG TABLET 1 TAB PO QAM CHF (Reported) Montelukast Sodium 10 MG TABLET 10 MG PO DAILY ALLERGIES (Reported) Nitrofurantoin Macrocrystal (Nitrofurantoin) 100 MG CAPSULE 1 CAP PO BID ANTIBIOTIC (Reported) Nitrofurantoin Monohyd/M-Cryst (Macrobid 100 MG Capsule) 100 MG CAPSULE 1 CAP PO BID UTI (Reported) Potassium Chloride 20 MEQ TAB.ER.PRT 1 TAB PO DAILY SUPPLEMENT (Reported) Rosuvastatin Calcium (Crestor) 5 MG TABLET 5 MG PO DAILY CHOLESTROL (Reported ) Review of Systems Review of Systems Constitutional: Reports: see HPI, weakness. Cardiovascular: Denies: chest pain. Respiratory: Denies: short of breath. GI: Denies: abdominal pain. Past History Travel History Traveled to [place] past 21 day No Medical History Blood Transfusion Hx: No Neurological: dizziness, vertigo EENT: allergies, CHRONIC SINUS PROBLEMS Cardiovascular: stage I diastolic congestive heart failure Respiratory: NONE Gastrointestinal: lactose intolerance Hepatic: elevated transaminases in the past Renal: urinary incontinence Musculoskeletal: falls, degenerative knee arthritis "NO ROTATOR CUFF" R ARM Psychiatric: bipolar disease, schizophrenia Endocrine: iodine radiotherapy for GOITER Blood Disorders: NONE Cancer(s): BREAST CA s/p right lumpectomy (breast cancer, status post rig) 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 Home Who Do You Live With? child Services at Home: Home Health Aide Primary Language: Welsh Smoking Status: Never Smoked Exam & Diagnostic Data Last 24 Hrs of Vital Signs/I&O Vital Signs Date Time Temp Pulse Resp B/P B/P Pulse O2 O2 Flow FiO2 Mean Ox Delivery Rate 12/02 1439 97.0 12/02 1418 97.5 70 20 140/70 95 Room Air 12/02 1146 Room Air 12/02 0922 94.7 12/02 0922 94.2 / 0754 94.5 / 0753 93.7 12/02 0645 94.9 57 20 142/70 97 Room Air 12/01 2152 98.6 88 19 130/68 96 Intake & Output 12/02 1600 12/02 0800 07/05 0000 Intake Total 810 10 500 Output Total 1470 400 400 Balance -660 -390 100 Intake, IV 10 10 Intake, Oral 800 500 Number 3 Bowel Movements Output, Urine 1470 400 400 Physical Exam General Appearance: no apparent distress Neck: thyromegaly Respiratory: coarse breath sound Cardiovascular: regular rate/rhythm Gastrointestinal: soft Extremities: swelling (trace) Assessment/Plan Assessment/Plan Patient is a 71-year-old female with significant past medical history of recurrent episodes of hypothermia, weakness and difficulty swallowing, CVA, CHF, bipolar disorder, chronic pedal edema, breast cancer s/p radiation, who presented to the emergency department at [facility] at 11/30/2016 complaining of weakness. She was found to be hyperthermic with lowest temperature of 93.7 and mild hyponatremia. 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 However, she hasn't been on thyroid hormone and hydrocortisone replacement. further work up: check prolactin, check am cortisol, check FSH, LH, estradiol and Prolactin level; monitor electrolytes and vital sign; will follow. Consult Acknowledgment - Thank you for your consult request.
[2016-12-02 22:38] VITALS: BP 140/70
--- NOTE | 2016-12-03 06:47 | PN- Housestaff ---
See Addendum Subjective Follow-up For: Hypothermia, weakness Subjective: Ms. Max continues to feel weak and cold. She is anxious to find out what is wrong. She is afraid of having to come back to the hospital after being discharge if her issues is not fixed. She does not have pain. Review of Systems Constitutional: Reports: see HPI, chills. Cardiovascular: Denies: no symptoms. Respiratory: Denies: no symptoms. Gastrointestinal: Reports: nausea. Genitourinary: Denies: no symptoms. Musculoskeletal: Denies: no symptoms. Objective Last 24 Hrs of Vital Signs/I&O Vital Signs Date Time Temp Pulse Resp B/P B/P Pulse O2 O2 Flow FiO2 Mean Ox Delivery Rate 12/03 0649 95.2 60 20 136/80 97 Room Air 12/02 2238 97.7 62 20 140/70 96 12/02 1439 97.0 12/02 1418 97.5 70 20 140/70 95 Room Air Intake & Output 12/03 1600 12/03 0800 12/03 0000 Intake Total 250 900 Output Total 500 300 Balance -250 600 Intake, IV 10 Intake, Oral 240 900 Number 1 Bowel Movements Output, Urine 500 300 Physical Exam General Appearance: Alert, Oriented X3, Cooperative, No Acute Distress Cardiovascular: Regular Rate, Normal S1, Normal S2, No Murmurs Lungs: Clear to Auscultation Abdomen: Normal Bowel Sounds, Soft, No Tenderness, No Masses Neurological: Normal Speech Extremities: Contusion on right leg healing well. Not hot or erythematous. 2+ bilateral pitting edema. Current Medications: Current Medications Sig/Courtney Start time Last Medication Dose Route Stop Time Status Admin Acetaminophen 650 MG Q6P PRN 12/01 0715 AC 12/01 PO 1129 Acetaminophen/ 1 TAB Q6P PRN 12/01 0715 AC Hydrocodone Bitart PO Aripiprazole 8 MG DAILY 12/03 1000 AC 12/03 PO 0947 Aspirin 81 MG DAILY 12/01 1000 AC 12/03 PO 0947 Cholecalciferol 2,000 IU DAILY 12/01 1000 AC 12/03 PO 0947 Cosyntropin 0.25 MG ONE ONE 12/03 1000 DC 12/03 IV 12/03 1001 0954 Divalproex Sodium 500 MG BID 12/01 2200 AC 12/03 PO 0947 Enoxaparin Sodium 40 MG DAILY 12/01 1000 AC 12/03 SC 0948 Furosemide 40 MG QAM 12/01 1000 AC 12/03 PO 0947 Loratadine 5 MG DAILY PRN 12/01 0400 AC PO Nitrofurantoin 100 MG BID 12/01 2200 AC 12/03 PO 0947 Ondansetron HCl 4 MG ONCE ONE 12/03 0930 DC 12/03 PO 12/03 0931 0943 Oxycodone/ 2 TAB Q6P PRN 12/01 0715 AC Acetaminophen PO Senna/Docusate Sodium 1 TAB BID PRN 12/01 1145 AC 12/01 PO 1325 Last 24 Hrs of Lab/Neo Results Last 24 Hrs of Labs/Mics: Laboratory Tests 12/03/16 1100: Cortisol AM Sample Pending 12/03/16 1035: Cortisol AM Sample 29.7 H 12/03/16 0938: Cortisol AM Sample 23.2 H 12/03/16 0607: Anion Gap 7, Estimated GFR > 60, BUN/Creatinine Ratio 28.6 H Assessment/Plan Assessment: Ms Max is a 71-year-old female with significant past medical history of recurrent episodes of hypothermia, weakness and difficulty swallowing as well as CVA, CHF, bipolar disorder, chronic pedal edema, breast cancer s/p radiation who presented to the emergency department at [facility] at 11/30/2016 complaining of weakness. She is on extended observation status. After Dr. Banuelos ( [facility]) saw her yesterday, we decided to keep her another day to get some blood work back. After the ACTH test, she can be discharged today. #Fall/gait instability/hypothermia: We are not wondering whether she has an underlying issue with her pituitary/thalamus that is affecting her hormones. Her prolactin came back low, as was the FSH and LH. We will order a ACTH stimulation test. -Monitor electrolytes. -ACTH stimulation test -Fall precautions #UTI: On macrobid, day 10/04. -Continue macrobid for 7 day course. #Hyponatremia At the time of presentation the patient did have sodium level 127. Now 137, which is normal. -Continue to monitor #Right calf contusion: healing. -continue to monitor. #Schizoaffective disorder History of bipolar disorder, MDD and anxiety with psychotic features -Continue aripiprazole (anti-psychotic), 8 mg. -Outpatient follow up to review meds. #History of CVA No new neurological deficits noted. -continue on aspirin -consider adding statin #History of CHF History of stage diastolic heart failure. -Continue lasix 40 mg #Diet Heart Healthy #DVT px SC lovenox #FULL CODE Problem List: 1. Schizoaffective disorder 2. Hypothermia 3. UTI (urinary tract infection) 4. Hypothermia Pain Ratin Pain Location: No pain Pain Goal: Remain pain free Pain Plan: vicodin Tomorrow's Labs & Rationales: Discharge today
[2016-12-03 06:49] VITALS: BP 136/80
--- NOTE | 2016-12-03 06:50 | NUR ---
LATE ENTRY NURSING NOTE: PATIENTS RECTAL TEMP 95.2 AT THIS TIME. OTHER VSS, 016 CHANA MADE AWARE; NO FURTHER ORDERS AT THIS TIME. ON COMING RN CAREN MADE AWARE WELL. PATIENT A&OX3, RESTING IN BED, NO ACUTE DISTRESS. NEEDS IN REACH. WILL CONT TO MONITOR.
--- NOTE | 2016-12-03 13:04 | PN- Endocrinology ---
Assessment/Plan Assessment: Patient is a 71-year-old female with significant past medical history of recurrent episodes of hypothermia, weakness and difficulty swallowing, CVA, CHF, bipolar disorder, chronic pedal edema, breast cancer s/p radiation, who presented to the emergency department at [facility] at 11/30/2016 complaining of weakness. She was found to be hypothermic with lowest temperature of 93.7 and mild hyponatremia. 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 However, she hasn't been on thyroid hormone and hydrocortisone replacement. Repeat prolactin 2.9, FSH 2.5, LH < 0.2, am cortisol 7.6, TSH 1.85, free T4 1.28 and TT3 1.04. Plan: Blood work showed hypogonadotrophic hypogonadism. However, her thyroid function is normal and cortisol is borderline. I will recommend repeating ACTH stimulation test. will follow. Subjective Subjective: She has no special complaints this morning. Objective Last 24 Hrs of Vital Signs/I&O Vital Signs Date Time Temp Pulse Resp B/P B/P Pulse O2 O2 Flow FiO2 Mean Ox Delivery Rate 12/03 0649 95.2 60 20 136/80 97 Room Air 12/02 2238 97.7 62 20 140/70 96 12/02 1439 97.0 12/02 1418 97.5 70 20 140/70 95 Room Air Intake & Output 12/03 1600 12/03 0800 12/03 0000 Intake Total 250 900 Output Total 500 300 Balance -250 600 Intake, IV 10 Intake, Oral 240 900 Number 1 Bowel Movements Output, Urine 500 300
--- NOTE | 2016-12-03 13:40 | NUR ---
NURSING NOTE: REPORT CALLED TO BISHOP TORREZ FOR PATIENT FOR DISCHARGE @ 9541 12/03/16.
[2016-12-03 14:45] VITALS: BP 132/60
== END 2016-12-03 14:55 | disposition home health service (06) ==
LOC: ERH 19:11 → 2NB 23:17 → ERHI 23:17 → ENRESERV 12-01 02:35 → 2NB 12-01 03:24 → ENPENDDIS 12-03 07:49 → 2NB 12-03 14:55
PROVIDERS: Internal Medicine; Physician Assistant Medical; Student in an Organized Health Care Education/Training Program; ADMIT Student in an Organized Health Care Education/Training Program
DX: E87.1 Hypo-osmolality and hyponatremia (principal); I50.32 Chronic diastolic (congestive) heart failure; F31.9 Bipolar disorder, unspecified; F20.9 Schizophrenia, unspecified; Z85.3 Personal history of malignant neoplasm of breast; Z86.73 Personal history of transient ischemic attack (TIA), and cerebral infarction without residual deficits; R26.9 Unspecified abnormalities of gait and mobility; F32.9 Major depressive disorder, single episode, unspecified; N39.0 Urinary tract infection, site not specified; R68.0 Hypothermia, not associated with low environmental temperature
CPT/HCPCS: 84133; 84300; 36415; 73502-RT; 73590-RT; 81001; 82436; 82570; 93005; 93010; 96372; 96374; 97112-GP; 97161-GP; 97530-GP; G0378; G8978-GP; G8979-GP; J0401; J0834; J1650; J3101; J3490

== ENCOUNTER 2016-12-21 12:15 | Emergency (ER) | payer OTHER, MEDICARE ==
[~2016-12-21] VITALS: Ht 149.9 cm; Wt 86.2 kg
[~2016-12-21 12:15] MED LIST changes: +ABILIFY2 MG PO; +BIOTIN5 M2 PO; +MACROBID 100 M100 MG PO; +NITROFURANTOIN100 M5 PO; +ZINC50 M2 PO
--- NOTE | 2016-12-21 14:16 | ED UPPER/LOWER EXTREMITY COMPL ---
History of Present Illness General Chief Complaint: Lower Extremity Problems Stated Complaint: BIBA R LEG INFECTION Source: patient, family, old records Exam Limitations: no limitations Vital Signs & Intake/Output Vital Signs & Intake/Output Vital Signs Date Time Temp Pulse Resp B/P B/P Pulse O2 O2 Flow FiO2 Mean Ox Delivery Rate 12/21 1604 63 18 115/55 100 Room Air 12/21 1222 98.0 69 18 109/74 95 Room Air Allergies Coded Allergies: Sulfa (Sulfonamide Antibiotics) (Intermediate, FACIAL EDEMA 10/16/16) azithromycin (Intermediate, THROAT CLOSURE 10/16/16) egg (Intermediate, SWOLLEN RED EYES 10/16/16) atorvastatin (UNKNOWN 10/16/16) lactose (UNKNOWN 10/16/16) ciprofloxacin (ANXIETY 10/16/16) Reconcile Medications Aripiprazole (Abilify) 2 MG TABLET 8 MG PO DAILY MENTAL HEALTH (Reported) Aspirin (Aspirin*) 81 MG TAB.CHEW 1 TAB PO DAILY HEART HEALTH (Reported) Divalproex Sodium 500 MG TABLET.DR 1 TAB PO QPM MENTAL HEALTH (Reported) Divalproex Sodium 250 MG TABLET.DR 1 TAB PO DAILY MENTAL HEALTH (Reported) Furosemide (Lasix) 40 MG TABLET 1 TAB PO QAM CHF (Reported) Lactobacillus Acidophilus (Acidophilus) 1 EACH CAPSULE 1 CAP PO BID GI ( Reported) Montelukast Sodium 10 MG TABLET 10 MG PO DAILY ALLERGIES (Reported) Potassium Chloride 20 MEQ TAB.ER.PRT 1 TAB PO DAILY SUPPLEMENT (Reported) Rosuvastatin Calcium (Crestor) 5 MG TABLET 5 MG PO DAILY CHOLESTROL (Reported ) Triage Note: PT TO ED FOR R LOWER LEG INFECTION, PT CURRENTLY AT [facility], [place], OPERATED BY [facility] FOR STR, BEEN RECIEVING PO ABX WITH NO IMPROVEMENT. WOUND DRESSING INTACT IN TRIAGE, PT REPORTING IT WAS CHANGED THIS AM. PT DENIES FEVER, N/V/D. REPORTING CHRONIC GENERALIZED WEAKNESS. Triage Nurses Notes Reviewed? yes Onset: Gradual Duration: week(s): Timing: recent history Severity: moderate Pain/Injury Location: Right: Leg. Method of Injury: fall HPI: 71-year-old female with history of CHF, CVA presents emergency department complaining of right leg swelling and pain. Patient states that 2 weeks ago she injured her right leg by sliding down the stairs. Following injury and has increased, with redness and swelling, as well as a wound over the lateral lower leg. Per W 10 from [facility] the wound was classified as infected hematoma. The patient was given po Keflex 500 mg twice a day x 5 days, her symptoms have been worsening despite antibiotic therapy. The patient has also had multiple rounds of extra Lasix for her leg swelling. Today the patient noticed that she felt weak and fatigued. The patient denies fevers, chills, abdominal pain, nausea, vomiting, chest pain, dyspnea, cough. (JUDY CASTRO PA-C) Past History Travel History Traveled to [place] past 21 day No Medical History Any Pertinent Medical History? 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 No (JUDY CASTRO PA-C) Review of Systems Review of Systems Constitutional: Reports: see HPI. EENTM: Reports: no symptoms. Respiratory: Reports: no symptoms. Cardiovascular: Reports: no symptoms. Gastrointestinal/Abdominal: Reports: no symptoms. Genitourinary: Reports: no symptoms. Musculoskeletal: Reports: see HPI. Skin: Reports: see HPI. Neurological/Psychological: Reports: no symptoms. Hematologic/Endocrine: Reports: no symptoms. Immunological: Reports: no symptoms. All Other Systems: Reviewed and Negative (JUDY CASTRO PA-C) Physical Exam Physical Exam General Appearance: well developed/nourished, no apparent distress, alert, awake Comments: Well-developed well-nourished person in no acute distress HEENT: HEAD is atraumatic, normocephalic Neck: Supple, normal range of motion without pain or tenderness Back: Nontender, Full range of motion Cardiovascular: Regular rate and rhythms no murmurs rubs or gallops, normal JVP Respiratory: No respiratory distress. Patient speaking in full complete sentences. Breath sounds clear to auscultation bilaterally: NO W/R/R Extremity: +1 pitting edema bilaterally, full range of motion of extremities, normal and equal pulses bilaterally, 5 out of 5 strength noted to bilateral upper and lower extremities, RIGHT LOWER LEG: erythema, warmth, tenderness of right lower leg of majority of skin from ankle to knee, 9x9cm area of disrupted skin with peeling and discoloration laterally, no active bleeding or drainage Neuro: Alert oriented x3, motor sensory normal, cranial nerves II through XII grossly intact. There were no obvious focal neurologic abnormalities. Skin: See right lower leg above Psych: Mood and affect is normal, memory and judgment is normal. (GLORIA ORTEGA,JUDY FOWLER) Progress Differential Diagnosis: arterial insufficiency, cellulitis, CHF, contusion, DVT, fracture, gout ( ), septic arthritis Plan of Care: Orders Procedure Date/time Status Heart Healthy Diet 12/22 B Active EXTREMETIES CULTURE 12/21 1726 Active LACTIC ACID 12/21 1713 Active URINE 12/21 1422 Active LACTIC ACID 12/21 1413 Complete COMPREHENSIVE METABOLIC PANEL 12/21 1413 Complete CBC WITHOUT DIFFERENTIAL 12/21 1413 Complete B-TYPE NATRIURETIC PEP (BNP) 12/21 1413 Complete Laboratory Tests 12/21/16 1630: Anion Gap 8, Estimated GFR > 60, BUN/Creatinine Ratio 20.0, Glucose 120 H, Lactic Acid 1.9, Calcium 9.1, Total Bilirubin 0.3, AST 13 L, ALT 18, Alkaline Phosphatase 78, [id number] Pept 343 H, Total Protein 6.2 L, Albumin 3.2 L, Globulin 3.0, Albumin/Globulin Ratio 1.1 12/21/16 1442: CBC w Diff NO MAN DIFF REQ, RBC 3.66 L, MCV 87.7, MCH 28.0, RDW 19.1 H, MPV 6.2 L, Gran % 73.2, Lymphocytes % 19.9 L, Monocytes % 6.1, Eosinophils % 0.5, Basophils % 0.3, Absolute Granulocytes 4.9, Absolute Lymphocytes 1.3, Absolute Monocytes 0.4, Absolute Eosinophils 0, Absolute Basophils 0, PUBS MCHC 31.9 L Microbiology 12/21 172 EXTREMITIE: Culture & Sensitivity - RECD 12/21 1724 EXTREMITIE: Gram Stain - RECD Case management spoke with nursing business practices supervisor at [facility]. If necessary, they are able to initiate IV antibiotics for her cellulitis at [facility]. US shows no evidence of DVT. No acute change in CXR. Dr. Youssef present to evaluate patient. No I&D required. He recommends 10 days of IV Vanco to be completed at [facility]. The patient is in no acute distress, vital signs are WNL, the patient is non-toxic appearing. The patient is in agreement with the plan of care, she will recieve her antibiotics are short term rehab facility. (GLORIA ORTEGA,JUDY FOWLER) Diagnostic Imaging: Viewed by Me: Radiology Read, Ultrasound. Discussed w/RAD: Radiology Read, Ultrasound. Radiology Impression: PATIENT: BUD ESPINOSA PRESENT AGE: 71 PATIENT ACCOUNT NO: [id number] : 43 LOCATION: [facility] ORDERING PHYSICIAN: JUDY CASTRO PA-C SERVICE DATE: 12/21/16 EXAM TYPE: US - US-DUPLEX VENOUS EXTREM UNI EXAMINATION: US TRIPLEX LOWER EXTREMITY, RIGHT CLINICAL INFORMATION: Right lower extremity edema pain swelling inflammation and tenderness COMPARISON: None TECHNIQUE: Color-flow triplex imaging with spectral analysis and compression Doppler were performed on the lower extremity. FINDINGS: Respiratory variation, normal compression and augmented flow are noted throughout the left lower extremity. The visualized common femoral vein, superficial femoral vein, profunda femoral vein, popliteal vein and midcalf peroneal and posterior tibial venous segments show no evidence of deep venous thrombosis. There is no Valente's cyst. IMPRESSION: No evidence of deep venous thrombosis involving the lower extremity. DICTATED BY: MANI HOOD MD DATE/TIME DICTATED:12/21/161613 FILM COATER:NAA DATE/TIME TRANSCRIBED:12/21/161613 CONFIDENTIAL, DO NOT COPY WITHOUT APPROPRIATE AUTHORIZATION. <Electronically signed in Other Vendor System> SIGNED BY: MANI HOOD MD 12/21/16 1620 CXR Impression: PATIENT: BUD ESPINOSA PRESENT AGE : 71 PATIENT ACCOUNT NO: [id number] : 43 LOCATION: [facility] ORDERING PHYSICIAN: JUDY CASTRO PA-C SERVICE DATE: 12/21/16 EXAM TYPE: RAD - XRY-CHEST XRAY, PA AND LATERAL EXAMINATION: XR CHEST CLINICAL INFORMATION: Bilateral leg swelling. COMPARISON: Chest x-ray 11/30/2016 TECHNIQUE: 2 views of the chest were obtained. FINDINGS: The chin overlies the right side of chest. Lungs are clear. There is no pulmonary vascular congestion. There is no pleural effusion. The cardiomediastinal silhouette is prominent. There are vascular wall calcifications of aorta and the aorta is tortuous. Multilevel degenerative spondylosis of dorsal spine with disc height narrowing and endplate spurs of the vertebrae. There are surgical clips in the upper abdomen. The right humeral head is impacting the inferior acromion at the shoulder consistent with chronic rotator cuff tear. IMPRESSION: No acute abnormality of chest. Cardiomegaly. No pulmonary vascular congestion. DICTATED BY: BILLIE SWEET MD DATE/TIME DICTATED: 12/21/161502 FILM COATER:NAA DATE/TIME TRANSCRIBED:12/21/161502 CONFIDENTIAL, DO NOT COPY WITHOUT APPROPRIATE AUTHORIZATION. <Electronically signed in Other Vendor System> SIGNED BY: BILLIE SWEET MD 12/21/16 1501 (GLORIA ORTEGA,JUDY FOWLER) Departure Departure Disposition: ACUTE REHAB FACILITY Condition: Stable Clinical Impression Primary Impression: Cellulitis Referrals: NEENA GARCIA,MARIA INES De Santiago (PCP/Family) Additional Instructions: Follow up to acute rehab at [facility]. You will require 10 days of IV antibiotics. Return with any worsening symptoms or concerns. Please note that there might be incidental findings in your evaluation that are unrelated to the current emergency department visit. Please notify your primary care doctor about this emergency department visit in order to obtain and review all of the testing performed so that these incidental findings can be monitored as needed. If you had an x-ray performed, please understand that some fractures may not be seen on the initial set of x-rays. If your symptoms persist you might need a repeat set of x-rays to check for such a fracture. If you're unable to follow up as outlined in the discharge instructions please return to the emergency department. Thank you for choosing the [facility] Emergency Department for your care. It was a pleasure to serve you today. Departure Forms: Customer Survey General Discharge Information (GLORIA ORTEGA,JUDY FOWLER) PA/KNOWLEDGE ENGINEER Co-Sign Statement Statement: ED Attending supervision documentation- [x] I saw and evaluated the patient. I have also reviewed all the pertinent lab results and diagnostic results. I agree with the findings and the plan of care as documented in the PA's/KNOWLEDGE ENGINEER's documentation. [] I have reviewed the ED Record and agree with the PA's/KNOWLEDGE ENGINEER's documentation. [] Additions or exceptions (if any) to the PAs/KNOWLEDGE ENGINEER's note and plan are summarized below: [] (TD YOUSSEF DO)
[2016-12-21] MEDS ORDERED: ACIDOPHILUS1 EACH PO (14:42)
[2016-12-21] MEDS ORDERED: DIVALPROEX SOD250 M2 PO (14:43)
[2016-12-21 14:47] LABS: ABSOLUTE BASOPHIL COUNT 0 /CUMM (0.0-0.2); ABSOLUTE EOSINOPHIL COUNT 0 /CUMM (0.0-0.7); ABSOLUTE GRANULOCYTE CT 4.9 /CUMM (1.4-6.5); ABSOLUTE LYMPH COUNT 1.3 /CUMM (1.2-3.4); ABSOLUTE MONOCYTE COUNT 0.4 /CUMM (0.10-0.60); BASOPHIL % 0.3 % (0.0-2.0); EOSINOPHIL % 0.5 % (0-5); GRANULOCYTE % 73.2 % (42.2-75.2); HEMATOCRIT 32.1 % (37-47); MEAN CORPUSCULAR HGB CONC 31.9 G/DL (33.0-37.0); MEAN CORPUSCULAR VOLUME 87.7 FL (81.0-99.0); MEAN PLATELET VOLUME 6.2 FL (7.4-10.4); PLATELET COUNT 431 /CUMM (130-400); RBC DISTRIBUTION WIDTH 19.1 % (11.5-14.5); RED BLOOD CELL CT 3.66 /CUMM (4.20-5.40); WHITE BLOOD CELL COUNT 6.6 /CUMM (4.8-10.8)
--- NOTE | 2016-12-21 15:08 | RADIOLOGY REPORT ---
EXAMINATION: XR CHEST CLINICAL INFORMATION: Bilateral leg swelling. COMPARISON: Chest x-ray 11/30/2016 TECHNIQUE: 2 views of the chest were obtained. FINDINGS: The chin overlies the right side of chest. Lungs are clear. There is no pulmonary vascular congestion. There is no pleural effusion. The cardiomediastinal silhouette is prominent. There are vascular wall calcifications of aorta and the aorta is tortuous. Multilevel degenerative spondylosis of dorsal spine with disc height narrowing and endplate spurs of the vertebrae. There are surgical clips in the upper abdomen. The right humeral head is impacting the inferior acromion at the shoulder consistent with chronic rotator cuff tear. IMPRESSION: No acute abnormality of chest. Cardiomegaly. No pulmonary vascular congestion.
[2016-12-21 16:04] VITALS: BP 115/55
--- NOTE | 2016-12-21 16:20 | ULTRASOUND REPORT ---
EXAMINATION: US TRIPLEX LOWER EXTREMITY, RIGHT CLINICAL INFORMATION: Right lower extremity edema pain swelling inflammation and tenderness COMPARISON: None TECHNIQUE: Color-flow triplex imaging with spectral analysis and compression Doppler were performed on the lower extremity. FINDINGS: Respiratory variation, normal compression and augmented flow are noted throughout the left lower extremity. The visualized common femoral vein, superficial femoral vein, profunda femoral vein, popliteal vein and midcalf peroneal and posterior tibial venous segments show no evidence of deep venous thrombosis. There is no Valente's cyst. IMPRESSION: No evidence of deep venous thrombosis involving the lower extremity.
== END 2016-12-21 20:49 ==
LOC: ERH 12:15
PROVIDERS: Physician Assistant
DX: L03.115 Cellulitis of right lower limb (principal)
CPT/HCPCS: 81025; 87070

== ENCOUNTER 2017-05-31 16:58 | Inpatient (IN) | payer OTHER, MEDICARE ==
[~2017-05-31] VITALS: Ht 152.4 cm; Wt 74.1 kg
[~2017-05-31 16:58] MED LIST changes: +ACIDOPHILUS1 EACH PO; +BENZONATATE100 M1 PO; +BIOTIN1000 MC1 PO; +DIVALPROEX SOD250 M2 PO; +DOXYCYCLINE HY100 M2 PO; +GUAIFENESIN DM S5 ML PO; +LACTAID3000 UNI1 PO; +MANNOSE50 GM PO; +MUCINEX DM ER1 EAC1 PO; +SALINE NASAL SP30 ML NASB; +SELENIUM100 MCG PO; +SELSUN BLUE207 ML TOP; +VOLTAREN100 GM TOP
--- NOTE | 2017-05-31 17:18 | ED AMS/SEIZURE/WEAK/DIZZY ---
History of Present Illness General Chief Complaint: Fever Stated Complaint: BIBA FOR FEVER, AMS Source: patient Exam Limitations: clinical condition, confusion Vital Signs & Intake/Output Vital Signs & Intake/Output Vital Signs Date Time Temp Pulse Resp B/P B/P Pulse O2 O2 Flow FiO2 Mean Ox Delivery Rate 06/03 1454 98.1 82 20 120/58 91 Nasal 2.0L Cannula 06/03 1342 95 Nasal 2.0L Cannula 06/03 0802 118/70 06/03 0800 96 Nasal 2.0L Cannula 06/03 0734 Nasal 2.0L Cannula 06/03 0645 77 136/48 06/03 0619 97.6 73 20 94 06/03 0226 96 Nasal 2.0L Cannula 06/03 0000 Nasal 2.0L Cannula 06/02 2152 97.9 93 20 118/64 94 Nasal 2.0L Cannula ED Intake and Output 06/03 0000 06/02 1200 Intake Total 1170 250 Output Total 650 Balance 520 250 Intake, IV 220 250 Intake, Oral 950 Number 0 Bowel Movements Output, Urine 650 Allergies Coded Allergies: Sulfa (Sulfonamide Antibiotics) (Intermediate, FACIAL EDEMA 10/16/16) azithromycin (Intermediate, THROAT CLOSURE 10/16/16) egg (Intermediate, SWOLLEN RED EYES 10/16/16) atorvastatin (UNKNOWN 10/16/16) cephalexin (From KEFLEX) (UNKNOWN 05/31/17) lactose (UNKNOWN 10/16/16) ciprofloxacin (ANXIETY 10/16/16) Reconcile Medications Aripiprazole (Abilify) 2 MG TABLET 7 MG PO DAILY MENTAL HEALTH (Reported) Aspirin (Aspirin*) 81 MG TAB.CHEW 1 TAB PO DAILY HEART HEALTH (Reported) Diclofenac Sodium (Voltaren) 1 % GEL..GRAM. 1 GM TOP 4 TIMES/DAY PAIN ( Reported) apply to affected area(s) Divalproex Sodium 500 MG TABLET.DR 1 TAB PO QHS MENTAL HEALTH (Reported) Divalproex Sodium 250 MG TABLET.DR 1 TAB PO QAM MENTAL HEALTH (Reported) Furosemide (Lasix) 40 MG TABLET 0.5 TAB PO QAM CHF (Reported) Guaifenesin/Dextromethorphan (Guaifenesin Dm Syrup) 100 MG-10 MG/5 ML SYRUP 1 TSP PO Q6-PRN PRN COUGH (Reported) [LACTAID] (Unknown Strength) TAB (Unknown Dose) PO DAILY LACTOSE INTOLERANT ( Reported) Lactase (Lactaid) (Unknown Strength) TABLET 1 TAB PO AD PRN LACTOSE INTOLERANT (Reported) Montelukast Sodium 10 MG TABLET 10 MG PO DAILY ALLERGIES (Reported) Potassium Chloride 20 MEQ TAB.ER.PRT 1 TAB PO DAILY SUPPLEMENT (Reported) Rosuvastatin Calcium (Crestor) 5 MG TABLET 5 MG PO QHS CHOLESTROL (Reported) Sodium Chloride (Saline Nasal [place]) 0.65 % SPRAY 1 SPRAY NASB 4 TIMES/DAY PRN ALLERGIES (Reported) [Sodium cloride] 2 GM TAB 1 TAB PO DAILY HYPONATREMIA (Reported) Triage Nurses Notes Reviewed? yes Onset: Abrupt Duration: day(s):, constant, continues in ED Timing: recent history No Modifying Factors: none HPI: 71-year-old female [facility] for evaluation of fever and acute confusion. Patient was discharged from hospital about a week ago. Patient finished a course of antibiotics. Daughter reports that she is acutely confused from her normal baseline over last 24 hours. She's been running a low-grade fever. She was sent in for further evaluation. There is been no reports of fever or vomiting. She's had a cough has been nonproductive. She denies any pain or any other symptoms. (Ty Wagner) Past History Medical History Any Pertinent Medical History? 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 No (Ty Wagner) Review of Systems Review of Systems Constitutional: Reports: see HPI. EENTM: Reports: see HPI. Respiratory: Reports: see HPI. Cardiovascular: Reports: no symptoms. GI: Reports: no symptoms. Genitourinary: Reports: no symptoms. Musculoskeletal: Reports: no symptoms. Skin: Reports: no symptoms. Neurological/Psychological: Reports: no symptoms. Hematologic/Endocrine: Reports: no symptoms. Immunologic/Allergic: Reports: no symptoms. All Other Systems: Reviewed and Negative (Ty Wagner) Physical Exam Physical Exam General Appearance: alert, awake Head: atraumatic Eyes: Bilateral: normal appearance. Ears, Nose, Throat: normal ENT inspection, hearing grossly normal Neck: normal inspection Respiratory: normal breath sounds, no respiratory distress Cardiovascular: regular rate/rhythm Back: normal inspection Extremities: normal range of motion Neurologic/Psych: awake, alert, disoriented x 3 Skin: intact, normal color Core Measures ACS in differential dx? Yes CVA/TIA Diagnosis No Sepsis Present: No Sepsis Focused Exam Completed? No (Ty Wagner) Progress Differential Diagnosis: arrythmia, CVA/stroke, dehydration, drug intoxication, electrolyte imbalance, intracranial Hem., intracranial mass/tumor, pneumonia, sepsis, UTI/pyelo Plan of Care: Orders Procedure Date/time Status Heart Healthy Diet 06/03 L Active CULTURE,URINE 06/03 1420 Active URINALYSIS 06/03 1420 Complete SWALLOW D/C STATUS 06/03 UNK Complete SWALLOW GOAL STATUS 06/03 UNK Complete SWALLOW CURRENT STATUS 06/03 UNK Complete Evaluation, Swallowing 06/03 UNK Complete Admit to inpatient 06/03 UNK Active Straight Cath 06/03 UNK Active Nursing Misc 06/03 UNK Active Activity/Ambulation 06/03 UNK Active THERAPIST ORDERS 06/02 1635 Complete AEROSOL CHG 06/02 UNK Complete OXYGEN 06/02 UNK Complete OXYGEN DAILY CHARGE 06/02 UNK Complete Current Medications Sig/Courtney Start time Last Medication Dose Stop Time Status Admin Bisacodyl 5 MG DAILY PRN 06/03 1245 AC (Dulcolax) Polyethylene Glycol 17 GM DAILY PRN 06/03 1245 AC (Miralax) Albuterol Sulfate 3 ML EVERY 4 HRS/AWAKE 06/02 2000 AC 06/03 (Proventil) 1556 Melatonin 3 MG AT BEDTIME PRN 06/02 0300 AC (Melatonin) Ferrous Sulfate 325 MG BID 06/01 2200 AC 06/03 (Feosol) 0811 Ampicillin Sodium/ 1,500 MG Q6 06/01 1800 AC 06/03 Sulbactam Sodium 1758 (Unasyn) Sodium Chloride 100 ML (Normal Saline 0.9%) Aripiprazole 5 MG DAILY 06/01 1000 AC 06/03 (Abilify) 0811 Aripiprazole 2 MG DAILY 06/01 1000 AC 06/03 (Abilify) 0811 Divalproex Sodium 250 MG QAM 06/01 1000 AC 06/03 (Depakote) 0811 Montelukast Sodium 10 MG DAILY 06/01 1000 AC 06/03 (Singulair) 0812 Divalproex Sodium 500 MG AT BEDTIME 05/31 2230 AC 06/02 (Depakote) 2111 Guaifenesin/ 5 ML Q6P PRN 05/31 2230 AC Dextromethorphan (Robitussin Dm) Sodium Chloride 1 SPRAY 4 TIMES/DAY PRN 05/31 2230 AC (Nasal) Acetaminophen 650 MG Q8P PRN 05/31 2215 AC 06/03 (Tylenol) 1413 Tramadol HCl 50 MG Q8P PRN 05/31 2215 AC (Ultram) Laboratory Tests 06/03/17 1420: Urine Color YEL, Urine Clarity CLEAR, Urine pH 6.0, Ur Specific [place] 1.025, Urine Protein NEG, Urine Ketones NEG, Urine Nitrite NEG, Urine Bilirubin NEG, Urine Urobilinogen 0.2, Ur Leukocyte Esterase NEG, Ur Microscopic SEDIMENT EXAMINED, Urine RBC 1-3, Urine WBC RARE, Ur Epithelial Cells RARE, Urine Bacteria RARE H, Urine Mucus FEW, Urine Hemoglobin MOD H, Urine Glucose 100 H 06/03/17 1243: Urine Color Cancelled, Urine Clarity Cancelled, Urine pH Cancelled, Ur Specific [place] Cancelled, Urine Protein Cancelled, Urine Ketones Cancelled, Urine Nitrite Cancelled, Urine Bilirubin Cancelled, Urine Urobilinogen Cancelled, Ur Leukocyte Esterase Cancelled, Ur Microscopic Cancelled, Urine Hemoglobin Cancelled, Urine Glucose Cancelled 06/03/17 0630: Anion Gap 8, Estimated GFR > 60, BUN/Creatinine Ratio 32.5 H, CBC w Diff NO MAN DIFF REQ, RBC 2.77 L, MCV 81.8, MCH 27.3, RDW 21.6 H, MPV 8.0, Gran % 67.3, Lymphocytes % 23.8, Monocytes % 7.1, Eosinophils % 1.3, Basophils % 0.5, Absolute Granulocytes 2.7, Absolute Lymphocytes 0.9 L, Absolute Monocytes 0.3, Absolute Eosinophils 0.1, Absolute Basophils 0, PUBS MCHC 33.4 Microbiology 06/03 1420 URINE ROUT: Urine Culture - RECD 06/03 1243 URINE ROUT: Urine Culture - CAN Cancelled: Cancelled via OE: Per MD Decision Diagnostic Imaging: Viewed by Me: Radiology Read, CT Scan. Discussed w/RAD: Radiology Read, CT Scan. Radiology Impression: PATIENT: BUD ESPINOSA PRESENT AGE: 71 PATIENT ACCOUNT NO: [id number] : 43 LOCATION: [facility] ORDERING PHYSICIAN: Ty COELLO SERVICE DATE: 05/31/17 EXAM TYPE : CAT - CT HEAD WO IV CONTRAST EXAMINATION: CT HEAD WITHOUT CONTRAST CLINICAL INFORMATION: Altered mental status COMPARISON: 05/15/[address] scan TECHNIQUE : Contiguous axial imaging was performed from the skull base to vertex without intravenous administration of contrast. DLP: 621.99 mGy-cm FINDINGS: There is no evidence of acute intracranial hemorrhage or territorial infarction. No abnormal mass effect or midline shift is seen. Joyce to white matter differentiation is well preserved. No extra-axial fluid collections are identified. There is stable prominence of the lateral and third ventricles and proportionate prominence of the subarachnoid spaces, reflecting a mild degree of global parenchymal volume loss. The osseous structures and soft tissues are normal. The mastoid air cells and visualized portions of the paranasal sinuses are well aerated. IMPRESSION: Stable CT scan of head without acute intracranial pathology. DICTATED BY: Diane Gannon MD DATE/TIME DICTATED:05/31/171804 DRYWALL HANGER FRAMER:NAA DATE/ TIME TRANSCRIBED:05/31/171804 CONFIDENTIAL, DO NOT COPY WITHOUT APPROPRIATE AUTHORIZATION. <Electronically signed in Other Vendor System> SIGNED BY: Diane Gannon MD 05/31/171814, PATIENT: BUD ESPINOSA PRESENT AGE: 71 PATIENT ACCOUNT NO: [id number] : 43 LOCATION: [facility] ORDERING PHYSICIAN: Ty COELLO SERVICE DATE: 05/31/17 EXAM TYPE : RAD - XRY-PORTABLE CHEST XRAY EXAMINATION: XR PORTABLE CHEST CLINICAL INFORMATION: Cough, fever. COMPARISON: Chest done on 05/19/2017. TECHNIQUE: Portable frontal view of the chest was obtained. FINDINGS: Low lung volume is present bilaterally. Subtle bibasilar airspace disease is noted (left greater than right), consistent with previously documented, clinically known bibasilar hypoventilatory, atelectatic changes. The remainder of the lung lara are clear. The cardiomediastinal silhouette is mildly enlarged, unchanged. There is no pleural effusion present. The visualized upper abdomen is unremarkable. IMPRESSION: No significant change since 05/19/2017. DICTATED BY: Justen Garrido MD DATE/TIME DICTATED:05/31/171811 DRYWALL HANGER FRAMER:NAA DATE/ TIME TRANSCRIBED:05/31/171811 CONFIDENTIAL, DO NOT COPY WITHOUT APPROPRIATE AUTHORIZATION. <Electronically signed in Other Vendor System> SIGNED BY: Justen Garrido MD 05/31/17 0026 Initial ED EKG: normal sinus rhythm (Ty Wagner) Departure Departure Disposition: STILL A PATIENT Condition: Stable Clinical Impression Primary Impression: Fever Secondary Impressions: Altered mental status Referrals: Rebel GARCIA,Wilfredo De Santiago (PCP/Family) Departure Forms: Customer Survey General Discharge Information Observation Note Spoke With: Massimo Hearn [facility] Physician Advisor Notified: KAVEH RODRIGUEZ DO Place Patient In: Non-ED OBS Care Area Rationale for Observation: My rational for observation is as follows patient is acute change in mental status with a low-grade fever. Repeat labs. Follow blood cultures. Consider MRI. Unsafe for discharge at this time. (Ty Wagner) PA/[employer]BER Co-Sign Statement Statement: ED Attending supervision documentation- [x] I saw and evaluated the patient. I have also reviewed all the pertinent lab results and diagnostic results. I agree with the findings and the plan of care as documented in the PA's/[employer] MEMBER's documentation. pt presents for eval of fever and confusion. exam reveals disoriented women in no acute distress. exam otherwise unremarkable. [] I have reviewed the ED Record and agree with the PA's/[employer] MEMBER's documentation. [] Additions or exceptions (if any) to the PAs/[employer]IV[employer] CREW MEMBER's note and plan are summarized below: [] (Gloria GARCIA,Kaveh Dawson) 05/31/17 2017: Lactic Acid Cancelled 05/31/171812: Anion Gap 8, Estimated GFR > 60, BUN/Creatinine Ratio 35.0 H, Glucose 84, Lactic Acid 1.1, Calcium 9.0, Total Bilirubin 0.3, AST 25, ALT 47, Alkaline Phosphatase 72, Troponin I 0.02, Total Protein 5.8 L, Albumin 3.0 L, Globulin 2.8, Albumin/Globulin Ratio 1.1, Lipase 20 L, Free T4 1.56, Total T3 1.00, TSH &T3 &Free T4 Intrp 0.167 L, Cortisol PM Sample 23.7 H, CBC w Diff NO MAN DIFF REQ, RBC 3.49 L, MCV 80.7 L, MCH 27.2, RDW 21.4 H, MPV 7.9, Gran % 83.4 H, Lymphocytes % 7.2 L, Monocytes % 9.1, Eosinophils % 0, Basophils % 0.3, Absolute Granulocytes 5.1, Absolute Lymphocytes 0.4 L, Absolute Monocytes 0.6, Absolute Eosinophils 0, Absolute Basophils 0, PUBS MCHC 33.7, Valproic Acid 64.0 05/31/171716: Virus Culture Pending Microbiology 06/01 54 URINE ROUT: Legionella Antigen - COMP 06/01 54 URINE ROUT: Streptococcus pneumoniae Antigen (M - COMP 06/01 54 URINE ROUT: Urine Culture - RECD 05/31 1835 BLOOD: Blood Culture - RES 05/31 181 BLOOD: Blood Culture - RES 05/31 1745 NASOPHARYN: Influenza Virus A & B Rapid Smear - COMP Diagnostic Imaging: Viewed by Me: Radiology Read, CT Scan. Discussed w/RAD: Radiology Read, CT Scan. Radiology Impression: PATIENT: BUD ESPINOSA PRESENT AGE: 71 PATIENT ACCOUNT NO: [id number] : 43 LOCATION: [facility] ORDERING PHYSICIAN: Ty COELLO SERVICE DATE: 05/31/17 EXAM TYPE : CAT - CT HEAD WO IV CONTRAST EXAMINATION: CT HEAD WITHOUT CONTRAST CLINICAL INFORMATION: Altered mental status COMPARISON: 05/15/[address] scan TECHNIQUE : Contiguous axial imaging was performed from the skull base to vertex without intravenous administration of contrast. DLP: 621.99 mGy-cm FINDINGS: There is no evidence of acute intracranial hemorrhage or territorial infarction. No abnormal mass effect or midline shift is seen. Joyce to white matter differentiation is well preserved. No extra-axial fluid collections are identified. There is stable prominence of the lateral and third ventricles and proportionate prominence of the subarachnoid spaces, reflecting a mild degree of global parenchymal volume loss. The osseous structures and soft tissues are normal. The mastoid air cells and visualized portions of the paranasal sinuses are well aerated. IMPRESSION: Stable CT scan of head without acute intracranial pathology. DICTATED BY: Diane Gannon MD DATE/TIME DICTATED:05/31/171804 DRYWALL HANGER FRAMER:NAA DATE/ TIME TRANSCRIBED:05/31/171804 CONFIDENTIAL, DO NOT COPY WITHOUT APPROPRIATE AUTHORIZATION. <Electronically signed in Other Vendor System> SIGNED BY: Diane Gannon MD 05/31/171814, PATIENT: BUD ESPINOSA PRESENT AGE: 71 PATIENT ACCOUNT NO: [id number] : 43 LOCATION: [facility] ORDERING PHYSICIAN: Ty COELLO SERVICE DATE: 05/31/17 EXAM TYPE : RAD - XRY-PORTABLE CHEST XRAY EXAMINATION: XR PORTABLE CHEST CLINICAL INFORMATION: Cough, fever. COMPARISON: Chest done on 05/19/2017. TECHNIQUE: Portable frontal view of the chest was obtained. FINDINGS: Low lung volume is present bilaterally. Subtle bibasilar airspace disease is noted (left greater than right), consistent with previously documented, clinically known bibasilar hypoventilatory, atelectatic changes. The remainder of the lung lara are clear. The cardiomediastinal silhouette is mildly enlarged, unchanged. There is no pleural effusion present. The visualized upper abdomen is unremarkable. IMPRESSION: No significant change since 05/19/2017. DICTATED BY: Justen Garrido MD DATE/TIME DICTATED:05/31/171811 DRYWALL HANGER FRAMER:NAA DATE/ TIME TRANSCRIBED:05/31/171811 CONFIDENTIAL, DO NOT COPY WITHOUT APPROPRIATE AUTHORIZATION. <Electronically signed in Other Vendor System> SIGNED BY: Justen Garrido MD 05/31/171824 Initial ED EKG: normal sinus rhythm Departure Departure Disposition: STILL A PATIENT Condition: Stable Clinical Impression Primary Impression: Fever Secondary Impressions: Altered mental status Referrals: Rebel GARCIA,Wilfredo De Santiago (PCP/Family) Departure Forms: Customer Survey General Discharge Information Observation Note Spoke With: Dhiraj GARCIA,Ivachitra Physician Advisor Notified: KAVEH RODRIGUEZ DO Place Patient In: Non-ED OBS Care Area Rationale for Observation: My rational for observation is as follows patient is acute change in mental status with a low-grade fever. Repeat labs. Follow blood cultures. Consider MRI. Unsafe for discharge at this time.
--- NOTE | 2017-05-31 18:15 | CT SCAN REPORT ---
EXAMINATION: CT HEAD WITHOUT CONTRAST CLINICAL INFORMATION: Altered mental status COMPARISON: 05/15/[address] scan TECHNIQUE: Contiguous axial imaging was performed from the skull base to vertex without intravenous administration of contrast. DLP: 621.99 mGy-cm FINDINGS: There is no evidence of acute intracranial hemorrhage or territorial infarction. No abnormal mass effect or midline shift is seen. Joyce to white matter differentiation is well preserved. No extra-axial fluid collections are identified. There is stable prominence of the lateral and third ventricles and proportionate prominence of the subarachnoid spaces, reflecting a mild degree of global parenchymal volume loss. The osseous structures and soft tissues are normal. The mastoid air cells and visualized portions of the paranasal sinuses are well aerated. IMPRESSION: Stable CT scan of head without acute intracranial pathology.
--- NOTE | 2017-05-31 18:25 | RADIOLOGY REPORT ---
EXAMINATION: XR PORTABLE CHEST CLINICAL INFORMATION: Cough, fever. COMPARISON: Chest done on 05/19/2017. TECHNIQUE: Portable frontal view of the chest was obtained. FINDINGS: Low lung volume is present bilaterally. Subtle bibasilar airspace disease is noted (left greater than right), consistent with previously documented, clinically known bibasilar hypoventilatory, atelectatic changes. The remainder of the lung lara are clear. The cardiomediastinal silhouette is mildly enlarged, unchanged. There is no pleural effusion present. The visualized upper abdomen is unremarkable. IMPRESSION: No significant change since 05/19/2017.
[2017-05-31 18:28] LABS: ABSOLUTE BASOPHIL COUNT 0 /CUMM (0.0-0.2); ABSOLUTE EOSINOPHIL COUNT 0 /CUMM (0.0-0.7); ABSOLUTE GRANULOCYTE CT 5.1 /CUMM (1.4-6.5); ABSOLUTE LYMPH COUNT 0.4 /CUMM (1.2-3.4); ABSOLUTE MONOCYTE COUNT 0.6 /CUMM (0.10-0.60); BASOPHIL % 0.3 % (0.0-2.0); EOSINOPHIL % 0 % (0-5); HEMATOCRIT 28.2 % (37-47); MEAN CORPUSCULAR HGB 27.2 PG (27.0-31.0); MEAN CORPUSCULAR HGB CONC 33.7 G/DL (33.0-37.0); MEAN CORPUSCULAR VOLUME 80.7 FL (81.0-99.0); MEAN PLATELET VOLUME 7.9 FL (7.4-10.4); PLATELET COUNT 175 /CUMM (130-400); RBC DISTRIBUTION WIDTH 21.4 % (11.5-14.5); RED BLOOD CELL CT 3.49 /CUMM (4.20-5.40); WHITE BLOOD CELL COUNT 6.2 /CUMM (4.8-10.8)
[2017-05-31 18:48] LABS: GRANULOCYTE % 83.4 % (42.2-75.2)
--- NOTE | 2017-05-31 22:19 | History & Physical ---
Oxana GARCIA,[facility] 05/31/17 2218: General Information and HPI MD Statement: I have seen and personally examined BUD MAX and documented this H&P. The patient is a 71 year old F who presented with a patient stated chief complaint of [fever]. Source of Information: family, W10 Exam Limitations: confusion History of Present Illness: This is a 71-year-old female with past medical history of hypothermia, hyponatremia, vertigo, urinary incontinence, mild to moderate , CVA, CHF, DJD, bipolar disorder, schizoaffective disorder, chronic pedal edema, breast cancer s /p lumpectomy/radiation was brought in from [facility] with a temperature recording of 100.3 and altered mental status since today morning. Most of the information was obtained from her daughter over phone and from the nurse at the [facility] Rose rubiguichochitra [Patient is a resident of [facility]]. Apparently patient was in usual state of health, following which she developed cough, wheeze on Wednesday. She also had increased confusion, mono syllable responses, increased lethargy, weakness. Apparently patient roommate also had cough and fever for 2 days. Patient is on fluid restriction 1000 ML for hyponatremia and she is also on sodium chloride tablets. The nurse denies any complaints of chest pain, chest pressure, abdominal pain, fever, chills, cold, dysuria, hematuria, diarrhea, loss of consciousness. At the [facility] patient is independent with 1:1 assist and uses a rolling walker for ambulation. Patient was recently admitted in [facility] for hypothermia and was treated for URI with doxycycline for 6 days. Allergies/Medications Allergies: Coded Allergies: Sulfa (Sulfonamide Antibiotics) (Intermediate, FACIAL EDEMA 10/16/16) azithromycin (Intermediate, THROAT CLOSURE 10/16/16) egg (Intermediate, SWOLLEN RED EYES 10/16/16) atorvastatin (UNKNOWN 10/16/16) cephalexin (From KEFLEX) (UNKNOWN 05/31/17) lactose (UNKNOWN 10/16/16) ciprofloxacin (ANXIETY 10/16/16) Home Med list Aripiprazole (Abilify) 2 MG TABLET 7 MG PO DAILY MENTAL HEALTH (Reported) Aspirin (Aspirin*) 81 MG TAB.CHEW 1 TAB PO DAILY HEART HEALTH (Reported) Diclofenac Sodium (Voltaren) 1 % GEL..GRAM. 1 GM TOP 4 TIMES/DAY PAIN ( Reported) apply to affected area(s) Divalproex Sodium 500 MG TABLET. 1 TAB PO QHS MENTAL HEALTH (Reported) Divalproex Sodium 250 MG TABLET.DR 1 TAB PO QAM MENTAL HEALTH (Reported) Furosemide (Lasix) 40 MG TABLET 0.5 TAB PO QAM CHF (Reported) Guaifenesin/Dextromethorphan (Guaifenesin Dm Syrup) 100 MG-10 MG/5 ML SYRUP 1 TSP PO Q6-PRN PRN COUGH (Reported) [LACTAID] (Unknown Strength) TAB (Unknown Dose) PO DAILY LACTOSE INTOLERANT ( Reported) Lactase (Lactaid) (Unknown Strength) TABLET 1 TAB PO AD PRN LACTOSE INTOLERANT (Reported) Montelukast Sodium 10 MG TABLET 10 MG PO DAILY ALLERGIES (Reported) Potassium Chloride 20 MEQ TAB.ER.PRT 1 TAB PO DAILY SUPPLEMENT (Reported) Rosuvastatin Calcium (Crestor) 5 MG TABLET 5 MG PO QHS CHOLESTROL (Reported) Sodium Chloride (Saline Nasal Solomon) 0.65 % SPRAY 1 SPRAY NASB 4 TIMES/DAY PRN ALLERGIES (Reported) [Sodium cloride] 2 GM TAB 1 TAB PO DAILY HYPONATREMIA (Reported) Compliance With Home Meds: GOOD Past History Travel History Traveled to [place] past 21 day No Medical History Neurological: CVA, dizziness, vertigo EENT: allergies, CHRONIC SINUS PROBLEMS Cardiovascular: stage I diastolic congestive heart failure Respiratory: NONE Gastrointestinal: lactose intolerance Hepatic: elevated transaminases in the past Renal: urinary incontinence, CHRONIC UTI Musculoskeletal: falls, degenerative knee arthritis "NO ROTATOR CUFF" R ARM Psychiatric: bipolar disease, schizophrenia Endocrine: iodine radiotherapy for GOITER Blood Disorders: NONE Cancer(s): BREAST CA s/p right lumpectomy (breast cancer, status post rig) 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 self Primary Language: Wallisian Smoking Status: Unknown If Ever Smoked Living Will? no Functional Ability ADLs Needs Assist: dressing, eating, toileting, bathing. Ambulation: walker IADLs Needs Assist: shopping, housework, finances, food prep, telephone, transportation, medication admin. Review of Systems Review of Systems Constitutional: Reports: no symptoms. Comments Review of system unobtainable. Exam & Diagnostic Data Last 24 Hrs of Vital Signs/I&O Vital Signs Date Time Temp Pulse Resp B/P B/P Pulse O2 O2 Flow FiO2 Mean Ox Delivery Rate 06/01 0153 81 100/60 06/01 0116 72 94/37 06/01 0041 82 112/62 06/01 0006 75 88/40 06/01 0000 Nasal 1.0L Cannula 05/31 2345 63/40 05/31 2236 98.3 72 20 90/40 96 Nasal 1.0L Cannula 05/31 2122 98.7 85 16 104/42 94 Room Air 05/31 1937 100.8 05/31 1920 97 Room Air 05/31 1914 100.8 05/31 1906 97.0 95 16 165/102 94 Room Air 05/31 1720 100.8 95 16 171/69 95 Room Air Intake & Output 06/01 0800 06/01 0000 05/31 1600 Intake Total 1000 Output Total 350 Balance 650 Intake, IV 1000 Output, Urine 350 Patient 170 lb Weight Physical Exam General Appearance Alert, Cooperative, No Acute Distress, orientedx2 Skin No Rashes, No Breakdown HEENT PERRLA Neck No JVD, No thryomegaly, +2 Carotid Pulse wo Bruit Cardiovascular Regular Rate, Normal S1, Normal S2, No Murmurs Lungs Clear to Auscultation Abdomen Normal Bowel Sounds, Soft, No Tenderness, No Hepatospenomegaly Neurological strength 2/5 Diagnostic Data EKG Results sr ,[id number] CXR Results Low lung volume is present bilaterally. Subtle bibasilar airspace disease is noted (left greater than right), consistent with previously documented, clinically known bibasilar hypoventilatory, atelectatic changes. The remainder of the lung lara are clear. The cardiomediastinal silhouette is mildly enlarged, unchanged. There is no pleural effusion present. The visualized upper abdomen is unremarkable. Other Results head CT IMPRESSION: Stable CT scan of head without acute intracranial pathology. Assessment/Plan Assessment: This is a 71-year-old female with past medical history of hypothermia, hyponatremia, vertigo, urinary incontinence, mild to moderate , CVA, CHF, DJD, bipolar disorder, schizoaffective disorder, chronic pedal edema, breast cancer s /p lumpectomy/radiation was brought in from short-term rehabilitation with a temperature recording of 100.3 and altered mental status since today morning. Patient is placed under observation for further evaluation and management. Admission vitals Temperature 100.8, pulse 95, respiratory rate 16, blood pressure 171/69, 97 at room air. Admission labs WBC 6.2, hemoglobin 9.5, hematocrit 28.2, sodium 142, potassium 3.7, BUNs 21, creatinine 0.6, troponin 0.02, lactic acid 1.1, lipase 20. 1. Fever of unknown origin-meets SIRS criteria . The cause of her fever is unknown at this time. Patient had a history of multiple episodes of nausea and vomiting and x-ray shows subtle bIBASILAR disease which can be due to viral bronchitis given the history of sick contacts. we will watch her off antibiotics. Patient had hypotension overnight systolic blood pressure 80-110, and diastolic blood pressure 40-70. Normal saline 1250 ML bolus was given. Patient is on maintenance fluids normal saline at 75 mL per hour. 2. Hyponatremia Admission sodium 142. Patient is on 1000 ml fluid restriction. We will repeat BEP in a.m. we will continue her sodium chloride tablet daily. It is anticipated that her sodium levels going to drop due to her fluid bolus and maintenance fluids. 3. We will continue Abilify, montelukast, Depakote, aspirin. Tramadol, Tylenol for pain. Code-full code Diet-heart healthy diet DVT prophylaxis-subcutaneous heparin As Ranked By This Provider Problem List: 1. Altered mental status 2. Schizoaffective disorder 3. Bipolar disorder 4. Obesity 5. CHF (congestive heart failure) Core Measures/Misc (02/14) Sepsis (View protocol) Sepsis Present: No Dhiraj GARCIA, [facility] 06/01/17 0638: Attending MD Review Statement Attending Statement Attending MD Statement: examined this patient, discuss w/resident/PA/SERICULTURIST, agreed w/resident/PA/SERICULTURIST, reviewed images, amended to note Attending Assessment/Plan: 71 yo F with h/o recurrent hypothermia, chronic hyponatremia, HfpEF, mild- moderate , schizoaffective disorder, was recently discharged from [facility] (May 23) after being treated for hyponatremia, ?groundglass opacities so started on Doxycycline (although no definitive evidence of pneumonia), is brought in from [facility] for evaluation of fever, confusion, lethargy and cough. Tmax 100.2 at the facility. Par family patient is well oriented at baseline but for past 24 hours she is only oriented to person. On our evaluation, patient stated being at [facility] and did not know the date. Patient did not offer any other complaints. Vitals: Tmax 100.8, HR 60-90's, BP 104/42 --> 90/40 --> 63/40 --> 112/62, sats 96% on 2L. Exam: awake, alert, oriented to person but not place or time, dry mucous membranes, flat affect, Chest clear, Heart S1 S2 regular. LE: edema+. Labs: no leukocytosis, H/H 9.5/28.2 (baseline), Na 142, bicarb 32, BUN 21, trop neg. EKG: SR. TWI V4-6 (new). UA neg. CXR: no significant change. Head CT stable. Echo (2017): EF 60-65%. Assessment and plan: 1. Confusion, altered mentation 2. Fever of unclear etiology 3. Possible viral bronchitis recently completed course of doxycycline 4. Transient hypotension likely volume depleted 5. HFpEF 6. Mild to mdoerate aortic stenosis - 23 hour observation on general medicine - Panculture - Gentle IV hydration received 1 L NS overnight due to hypotension - Monitor off antibiotics for now - Check cortisol levels - Consider stress dose steroids for persistent hypotension - Consider Endo consult - Previously worked up for hypopitiutarism - Check thyroid function tests - Repeat EKG and troponin - diet chopped, thin liquids - Maintain on fluid restriction of 1000 ml by mouth and resume sodium tabs when able to DVT ppx Hep SC. Full code. Observation Initial Note - I have personally examined BUD MAX on 06/01/17 at 0638. The disposition of BUD MAX is uncertain at this time and before a determination can be made, she requires a period of observation for the following reasons [altered mentation, fever.] Medina Inman 06/01/17 0739: Core Measures/Misc (02/14) Acute Coronary Syndrome ACS Diagnosis: No Congestive Heart Failure Congestive Heart Failure Diagnosis No Cerebrovascular Accident CVA/TIA Diagnosis: No VTE (View Protocol) VTE Risk Factors No risk factors No Mechanical VTE Prophylaxis d/t LowRisk-No Interven Req'd No VTE Pharm Prophylaxis d/t LowRisk-No Interven Req'd Resident Review Statement Resident Statement: examined this patient, discussed with application internship Other Findings: Ms Max is a 71-year-old woman who was known to be in her usual state of health until the a.m. of admission. She was brought from assisted living facility with a chief concern of altered mental status, fever and occasional cough. She has a PMHx of schizoaffective disorder, HFpEF, goiter s/p HILL tx, breast Ca s/p lumpectomy, h/o persistent hypothermia, h/o CVA (date unknown and w/ no residual deficits), multiple hospital admissions for evaluation of hyponatremia and hypothermia. She was worked up for hypopituitarism, with decreased LH and FSH with normal TSH, an ACTH stim test. She was brought in for evaluation of altered mental status, mostly confusion and lethargy that began approximately 24 hours ago. She also had fever Tmax 100.3 while she was in the facility. She also complained of nonproductive cough, with no associated chest pain, shortness of breath, or palpitations. No loss of consciousness, vision changes, or any seizures. At the time of admission, vitals temperature 100.8, pulse rate 95, respirations 16, blood pressure 171/69, respiration 95% on room air. On examination, she was found to be sleepy, and was appropriately responding to questions. She was relatively slow to respond, which is not new for her. Lung auscultation-did not reveal any abnormal sounds. Abdominal examination was benign. No pedal edema. Pertinent lab findings, WBC 6.2 (83% granulocytosis), hemoglobin 9.5 (baseline around 9), MCV 80. Bicarbonate 32 (likely because of dehydration), renal function-BUN 21, creatinine 0.6, lactic acid 1.1. Albumin 3.0. Chest x-ray did not reveal any acute findings suggestive of consolidation. CT head was within normal limits. EKG revealed nonspecific T-wave changes in V4 V5 V6 likely repolarization abnormalities. Troponin 0.02. Urinalysis done at an outside facility, did not reveal any pyuria or urinary leukocyte esterase. Cortisol 23.7, TSH 0.16, but total T3 was within normal limits. Echocardiogram 04/15/2017 revealed left ventricular ejection fraction 60-65%, with diastolic filling pattern abnormality as for age. Etiology in her case for fever, altered mental status and cough are more likely due to acute viral bronchitis. Although, influenza A was negative, other viruses that cause the symptoms are to be kept in mind. She was persistently hypotensive, while she was on the general medicine floor, which was likely from dehydration or viral infection. She would meet sepsis criteria, and was given fluids, although infectious source is not bacterial in her case. Other etiologies for altered mental status are seizures, worsening dementia, or dehydration; valproate levels were within normal limits. She was worked up for hypopituitarism the past, and she is appropriately stimulated to ACTH in the past; p.m. cortisol was checked when she was persistently hypotensive was 23.7, and was not given any stress dose steroids. If she continues to have granulocytosis or has a white count, would consider starting an antibiotic for the treatment of community-acquired pneumonia. Plan: #1 altered mental status- mentation improved, and diet advanced to soft and thin liquids. Aspiration precautions to be maintained. This is likely due to dehydration, and intravenous fluids should be continued until blood pressure is more stable. Urinalysis and urine culture were sent. Continue to monitor her closely. Follow repeat EKG and troponin. #2 hypotension- likely from dehydration, secondary to her viral infection. She should be continued to get fluids, and monitor her vitals closely. It should be borne in mind, that she had hyponatremia in the past. After blood pressure is more stable, she should be on fluid restriction and salt tablets. If deemed appropriate, she should get stress dose of steroids especially hydrocortisone, which would help bring the blood pressure up, although she has adequate cortisol production. #3 anemia- likely iron deficiency anemia, would do iron studies. Housekeepin. DVT PPx- sc heparin. 2. Pain management- avoid opiates. 3. Full code. 4. Aspiration precautions. 5. Med rec done. Lasix and antihypertensives held.
[2017-05-31] MEDS ORDERED: SODIUM CLORIDE PO (22:22)
[2017-05-31] MEDS ORDERED: LACTAID PO (22:26)
[2017-05-31 22:36] VITALS: BP 90/40
[2017-05-31 23:45] VITALS: BP 63/40
[2017-06-01] VITALS (11 sets, daily range): BP systolic 88–127; BP diastolic 27–70
--- NOTE | 2017-06-01 09:11 | PN-Observation ---
Phong GARCIA,[facility] 06/01/17 0911: Observation Note Observation Note _ I have personally examined BUD ESPINOSA. her disposition is uncertain at this time. Before a determination can be made, she requires continued observation for the following reasons []. Assessment/Plan Assessment: 71-year-old female with past medical history of hypothermia, hyponatremia, vertigo, urinary incontinence, mild to moderate , CVA, CHF, DJD, bipolar disorder, schizoaffective disorder, chronic pedal edema, breast cancer s/p lumpectomy/radiation was brought in from short-term rehabilitation with a temperature recording of 100.3 and altered mental status strated yesterdy. Her H&H has dropped this morning to 7.4/22.3 Altered mental status/fever of unknown etiology Differential diagnosis includes viral bronchitis , dehydration Will continue to monitor off antibiotics for now Continue IV hydration Can consider stress dose of steroids if blood pressure drops again Chronic hyponatremia Patient is on fluid restriction for chronic hyponatremia Resume alt tabs When able Overnight the patient was found to be hypotensive and required 1.250 bolus of normal saline Severe anemia H&H has dropped down to 7.4/22.3, we need to rule out GI bleeding Guaiac was negative Repeat CBC showed same results Blood type and crossmatch follow up on CT with IV contrast of chest, abdomen, pelvis to rule out bleeding goal hemoglbin is more than 7, will consider PRBC transfusion if her hemoglobin dropped below 7 Patient is full code DVT prophylaxis subcutaneous heparin Chopped diet with thin liquids Problem List: 1. Altered mental status 2. Hyponatremia syndrome 3. Weakness 4. URI (upper respiratory infection) 5. Anemia DVT/Prophylaxis: pharmacological Subjective Follow-up For: Confusion, altered mentation 2. Fever of unclear etiology 3. Possible viral bronchitis recently completed course of doxycycline 4. Transient hypotension likely volume depleted 5. Severe anemai Subjective: Patient is seen and examined at bedside, she continues to be lethargic and sleepy, she denies any abdominal pain, nausea, vomiting or diarrhea. Blood pressure improved to 127/80 Review of Systems Constitutional: Reports: see HPI. Cardiovascular: Denies: no symptoms. Respiratory: Reports: cough. Gastrointestinal: Denies: no symptoms. Genitourinary: Denies: no symptoms. Objective Last 24 Hrs of Vital Signs/I&O Vital Signs Date Time Temp Pulse Resp B/P B/P Pulse O2 O2 Flow FiO2 Mean Ox Delivery Rate 06/01 0800 Nasal 3.0L Cannula 06/01 0643 80 127/70 06/01 0550 71 106/41 06/01 0541 97.6 69 16 94/41 94 Nasal 3.0L Cannula 06/01 0411 62 91/47 06/01 0326 65 16 116/47 94 Nasal 2.0L Cannula 06/01 0153 81 100/60 06/01 0116 72 94/37 06/01 0041 82 112/62 06/01 0006 75 88/40 06/01 0000 Nasal 1.0L Cannula 05/31 2345 63/40 05/31 2236 98.3 72 20 90/40 96 Nasal 1.0L Cannula 05/31 2122 98.7 85 16 104/42 94 Room Air 05/31 1937 100.8 05/31 1920 97 Room Air 05/31 1914 100.8 05/31 1906 97.0 95 16 165/102 94 Room Air 05/31 1720 100.8 95 16 171/69 95 Room Air Intake & Output 06/01 1600 06/01 0800 06/01 0000 Intake Total 2540 Output Total 350 Balance 2190 Intake, IV 2300 Intake, Oral 240 Output, Urine 350 Patient 170 lb Weight Physical Exam General Appearance: Alert, somnolent and lethargic but arousable HEENT: Atraumatic, PERRLA, EOMI, Mucous Membr. moist/pink Cardiovascular: Regular Rate, Normal S1, Normal S2, No Murmurs Lungs: Clear to Auscultation Abdomen: Normal Bowel Sounds, Soft, No Tenderness Extremities: No Clubbing, No Cyanosis, 1 + PITTING EDEMA Vascular: Normal Pulses Gris Hernandez MD 06/01/17 1451: Addendum Addendum 71F PMH recurrent hypothermia, chronic hyponatremia, HfpEF, mild-moderate , schizoaffective disorder brought in under observation from [facility] for fever, confusion, and now with anemia, with Hgb dropping from 9.3 to 7.4 with no obvious signs of bleeding. Hypotensive initially and given IV fluids, now normotensive. Patient appears mildly confused but otherwise well. She is afebrile since last night. Repeat Hgb was 7.2, guaiac negative with brown stool by resident. Plan - Continue observation on general medicine - Monitor for signs of bleeding - Obtain CT abdomen/pelvis - Follow cultures - Hold on antibiotics for now - Continue home medications - DVT PPx
[2017-06-01 09:24] LABS: ABSOLUTE BASOPHIL COUNT 0 /CUMM (0.0-0.2); ABSOLUTE EOSINOPHIL COUNT 0 /CUMM (0.0-0.7); ABSOLUTE GRANULOCYTE CT 2.7 /CUMM (1.4-6.5); ABSOLUTE MONOCYTE COUNT 0.5 /CUMM (0.10-0.60); BASOPHIL % 0.6 % (0.0-2.0); EOSINOPHIL % 0.2 % (0-5); GRANULOCYTE % 63.9 % (42.2-75.2); MEAN CORPUSCULAR HGB 27.4 PG (27.0-31.0); MEAN CORPUSCULAR HGB CONC 33.3 G/DL (33.0-37.0); MEAN CORPUSCULAR VOLUME 82.3 FL (81.0-99.0); MEAN PLATELET VOLUME 8.4 FL (7.4-10.4); PLATELET COUNT 117 /CUMM (130-400); RBC DISTRIBUTION WIDTH 21.8 % (11.5-14.5); RED BLOOD CELL CT 2.71 /CUMM (4.20-5.40); WHITE BLOOD CELL COUNT 4.3 /CUMM (4.8-10.8)
[2017-06-01 09:45] LABS: HEMATOCRIT 22.3 % (37-47)
[2017-06-01 12:13] LABS: ABSOLUTE BASOPHIL COUNT 0 /CUMM (0.0-0.2); ABSOLUTE EOSINOPHIL COUNT 0 /CUMM (0.0-0.7); ABSOLUTE GRANULOCYTE CT 2.3 /CUMM (1.4-6.5); ABSOLUTE LYMPH COUNT 0.8 /CUMM (1.2-3.4); ABSOLUTE MONOCYTE COUNT 0.4 /CUMM (0.10-0.60); BASOPHIL % 0.5 % (0.0-2.0); EOSINOPHIL % 0.3 % (0-5); GRANULOCYTE % 66.1 % (42.2-75.2); MEAN CORPUSCULAR HGB 27.5 PG (27.0-31.0); MEAN CORPUSCULAR HGB CONC 33.5 G/DL (33.0-37.0); MEAN CORPUSCULAR VOLUME 82.1 FL (81.0-99.0); MEAN PLATELET VOLUME 7.7 FL (7.4-10.4); PLATELET COUNT 124 /CUMM (130-400); RBC DISTRIBUTION WIDTH 21.4 % (11.5-14.5); RED BLOOD CELL CT 2.61 /CUMM (4.20-5.40); WHITE BLOOD CELL COUNT 3.5 /CUMM (4.8-10.8)
[2017-06-01 12:28] LABS: HEMATOCRIT 21.4 % (37-47)
--- NOTE | 2017-06-01 15:36 | CT SCAN REPORT ---
EXAMINATION: CT CHEST, ABDOMEN AND PELVIS WITH CONTRAST CLINICAL INFORMATION: Acute on chronic anemia. Increased supplemental oxygen requirement. Infection. Shortness of breath. COMPARISON: 05/21/2017. TECHNIQUE: Contiguous axial thin section helical images of the chest, abdomen and pelvis were performed following the administration of 100 mL of intravenous Ultravist 300. The data set was reformatted in the coronal and sagittal planes and reviewed on an independent workstation. DLP: 1367 mGy-cm. FINDINGS: Again identified is an approximately 4 cm heterogeneous right thyroid nodule exerting mass effect upon the trachea with shift to the left. There is also a heterogeneous nodule within the lower pole of the left thyroid gland measuring 1.8 cm. The heart is of normal size. There is no pericardial effusion. There is neither mediastinal, hilar nor axillary lymphadenopathy. There are no chest wall masses. Review of lung windows demonstrates that there are neither pleural effusions nor pneumothoraces. There is new demonstration of multifocal consolidations within the right upper lobe and both lower lobes, most prominently within the posterior basal segment of the left lower lobe. There are no pulmonary parenchymal nodules. The liver is of normal size and attenuation without focal lesions nor intrahepatic biliary ductal dilation. Patient is status post cholecystectomy. Surgical clips are identified. The spleen, pancreas, adrenal glands are unremarkable. Both kidneys are of normal size and attenuation without hydronephrosis or nephrolithiasis. Following the administration of IV contrast, prompt symmetric nephrograms are displayed. There is no abdominal free fluid. There is neither mesenteric nor retroperitoneal lymphadenopathy. There is a fat-containing umbilical hernia. Normal unopacified loops of small and large bowel are identified. The uterus is lobulated, likely hotel services sales representative of fibroids. There is no pelvic free fluid. The urinary bladder is unremarkable. There is neither pelvic nor inguinal lymphadenopathy. Bone windows: Neither sclerotic nor lytic bone lesions are identified. IMPRESSION: No evidence for acute abdominal or pelvic inflammatory or infectious processes. No abdominal or pelvic free fluid. No retroperitoneal hemorrhage identified. Multifocal airspace disease concerning for pneumonia. Recommendation is for a followup chest series to be obtained following treatment and/or resolution of symptoms to assure resolution of this appearance. Bilateral thyroid nodules. Fat-containing umbilical hernia. Status post cholecystectomy.
[2017-06-01 20:10] LABS: ABSOLUTE BASOPHIL COUNT 0 /CUMM (0.0-0.2); ABSOLUTE EOSINOPHIL COUNT 0 /CUMM (0.0-0.7); ABSOLUTE GRANULOCYTE CT 2.8 /CUMM (1.4-6.5); ABSOLUTE LYMPH COUNT 0.7 /CUMM (1.2-3.4); ABSOLUTE MONOCYTE COUNT 0.2 /CUMM (0.10-0.60); BASOPHIL % 0.4 % (0.0-2.0); EOSINOPHIL % 0.3 % (0-5); GRANULOCYTE % 76.3 % (42.2-75.2); HEMATOCRIT 26.2 % (37-47); MEAN CORPUSCULAR HGB 27.2 PG (27.0-31.0); MEAN CORPUSCULAR HGB CONC 32.8 G/DL (33.0-37.0); MEAN CORPUSCULAR VOLUME 82.8 FL (81.0-99.0); MEAN PLATELET VOLUME 8.2 FL (7.4-10.4); PLATELET COUNT 148 /CUMM (130-400); RBC DISTRIBUTION WIDTH 22.2 % (11.5-14.5); RED BLOOD CELL CT 3.17 /CUMM (4.20-5.40); WHITE BLOOD CELL COUNT 3.7 /CUMM (4.8-10.8)
[2017-06-02 06:30] VITALS: BP 116/58
--- NOTE | 2017-06-02 07:15 | PN-Observation ---
See Addendum Assessment/Plan Assessment: 71-year-old female with past medical history of hypothermia, hyponatremia, vertigo, urinary incontinence, mild to moderate , CVA, CHF, DJD, bipolar disorder, schizoaffective disorder, chronic pedal edema, breast cancer s/p lumpectomy/radiation was brought in from short-term rehabilitation with a temperature recording of 100.3 and altered mental status strated yesterdy. Her H&H has dropped this morning to 7.4/22.3 Health care associated pneumonia Patient met the criteria of healthcare associated pneumonia since she was living in [facility] CT chest showed multifocal airspace disease concerning for pneumonia Strep pneumonia and the legionella were negative Continue Unasyn empirically for now pending culture results (day 2) Continue Guafenisin TRC consult Strict aspiration precaution Follow-up on swallow eval to rule out the possibility of aspiration ID consult appreciated regarding antibiotics Continue IV hydration Can consider stress dose of steroids if blood pressure drops again Chronic hyponatremia Patient is on fluid restriction for chronic hyponatremia Resume alt tabs When able Overnight the patient was found to be hypotensive and required 1.250 bolus of normal saline Severe anemia H&H has dropped down to 7.6/23.8, MCV was normal, a low serum iron and TIBC, most likely her anemia is caused by mixture of iron deficiency and chronic illness Continue ferrous sulfate tablets Guaiac was negative Blood type and crossmatch, will consider PRBC transfusion if her hemoglobin dropped below 7 CT abdomen and pelvis with IV contrast ruled out with GI bleeding Patient is full code DVT prophylaxis subcutaneous heparin Chopped diet with thin liquids Problem List: 1. Fever 2. Hyponatremia syndrome 3. Pneumonia 4. Weakness DVT/Prophylaxis: mechanical, pharmacological Subjective Follow-up For: 1.Confusion, altered mentation 2. Fever of unclear etiology 3. Possible viral bronchitis recently completed course of doxycycline 4. Transient hypotension likely volume depleted 5. Severe anemai Subjective: Patient seen and examined at bedside, she looks more awake and alert today, only endorses productive cough. denies any pain, fever, chills, chest pain. She also denies any nausea vomiting or diarrhea. Review of Systems Constitutional: Denies: no symptoms. Cardiovascular: Denies: no symptoms. Respiratory: Reports: cough, sputum production. Gastrointestinal: Denies: no symptoms. Genitourinary: Denies: no symptoms. Objective Last 24 Hrs of Vital Signs/I&O Vital Signs Date Time Temp Pulse Resp B/P B/P Pulse O2 O2 Flow FiO2 Mean Ox Delivery Rate 06/02 1007 22 95 Nasal 2.0L Cannula 06/02 1007 22 98 Nasal 3.0L Cannula 06/02 0933 97 Nasal 3.0L Cannula 06/02 0800 98 Nasal 3.0L Cannula 06/02 0730 24 97 Nasal 3.0L Cannula 06/02 0630 98.0 79 20 116/58 97 06/02 0210 96 Nasal 3.0L Cannula 06/02 0000 Nasal 3.0L Cannula 06/01 2143 98.3 70 20 119/50 92 Nasal 3.0L Cannula 06/01 1600 Nasal 3.0L Cannula 06/01 1503 97.6 98 18 99/50 93 06/01 1413 Nasal 3.0L Cannula 06/01 1412 97 Nasal 3.0L Cannula Intake & Output 06/02 1600 06/02 0800 06/02 0000 Intake Total 250 700 Output Total 100 Balance 250 600 Intake, IV 250 300 Intake, Oral 400 Output, Urine 100 Physical Exam General Appearance: Alert, Oriented X3, Cooperative, No Acute Distress HEENT: Atraumatic, PERRLA, EOMI, Mucous Membr. moist/pink Neck: Supple, No JVD Cardiovascular: Regular Rate, Normal S1, Normal S2, No Murmurs Lungs: bilateral widespread rales Abdomen: Normal Bowel Sounds, Soft, No Tenderness Neurological: Normal Speech Extremities: No Clubbing, No Cyanosis, No Edema
--- NOTE | 2017-06-02 08:51 | Cons- Pulmonary ---
General Information and HPI Consulting Request Date of Consult: 06/02/17 Requested By: Dr. Hernandez Reason for Consult: Fever Source of Information: patient, old records Exam Limitations: poor historian History of Present Illness: The patient is a 71 year old female with a history significant for chronic hyponatremia (on 1 L fluid restriction), chronic hyponatremia, HFpEF, mild- moderate , goiter s/p radioactive iodine, breast cancer s/p lumpectomy, CVA, bipolar disorder, schizoaffective disorder, chronic pedal edema, and breast cancer status post lumpectomy and radiation in the past. The patient was discharged from [facility] on 05[facility] after being admitted for weakness , shortness of breath and dry cough. During that admission, the patient had a chest x-ray that showed nonspecific eye basilar opacification thought to be related to atelectasis. A CT of the chest was done that showed hypoventilatory changes with some mild diffuse groundglass opacities. The patient was treated with doxycycline for a possible upper respiratory tract infection. The patient was sent back to the emergency department from [facility] noting she had a temperature recording of 100.3 with altered mental status. It was reported she had a cough and wheezing as well. There was no respiratory distress reported. The patient did not complain of any chest pain, chest pressure, abdominal pain, chills or any other associated problems. The patient was further evaluated for his symptoms noting that her flu was negative. She had a chest x-ray that again showed nonspecific bibasilar atelectasis without evidence of consolidation. The patient was pancultured and started on IV Unasyn. [place], her MAXIMUM TEMPERATURE has been 100.8 however she has defervesced and is 98 today. A follow-up CT scan of the chest demonstrated evidence of multifocal pneumonia. ABG was not done this admission. The patient was very lethargic during the evaluation and not contributing to the history. Allergies/Medications Allergies: Coded Allergies: Sulfa (Sulfonamide Antibiotics) (Intermediate, FACIAL EDEMA 10/16/16) azithromycin (Intermediate, THROAT CLOSURE 10/16/16) egg (Intermediate, SWOLLEN RED EYES 10/16/16) atorvastatin (UNKNOWN 10/16/16) cephalexin (From KEFLEX) (UNKNOWN 05/31/17) lactose (UNKNOWN 10/16/16) ciprofloxacin (ANXIETY 10/16/16) Home Med List: Aripiprazole (Abilify) 2 MG TABLET 7 MG PO DAILY MENTAL HEALTH (Reported) Aspirin (Aspirin*) 81 MG TAB.CHEW 1 TAB PO DAILY HEART HEALTH (Reported) Diclofenac Sodium (Voltaren) 1 % GEL..GRAM. 1 GM TOP 4 TIMES/DAY PAIN ( Reported) apply to affected area(s) Divalproex Sodium 500 MG TABLET. 1 TAB PO QHS MENTAL HEALTH (Reported) Divalproex Sodium 250 MG TABLET.DR 1 TAB PO QAM MENTAL HEALTH (Reported) Furosemide (Lasix) 40 MG TABLET 0.5 TAB PO QAM CHF (Reported) Guaifenesin/Dextromethorphan (Guaifenesin Dm Syrup) 100 MG-10 MG/5 ML SYRUP 1 TSP PO Q6-PRN PRN COUGH (Reported) [LACTAID] (Unknown Strength) TAB (Unknown Dose) PO DAILY LACTOSE INTOLERANT ( Reported) Lactase (Lactaid) (Unknown Strength) TABLET 1 TAB PO AD PRN LACTOSE INTOLERANT (Reported) Montelukast Sodium 10 MG TABLET 10 MG PO DAILY ALLERGIES (Reported) Potassium Chloride 20 MEQ TAB.ER.PRT 1 TAB PO DAILY SUPPLEMENT (Reported) Rosuvastatin Calcium (Crestor) 5 MG TABLET 5 MG PO QHS CHOLESTROL (Reported) Sodium Chloride (Saline Nasal [place]) 0.65 % SPRAY 1 SPRAY NASB 4 TIMES/DAY PRN ALLERGIES (Reported) [Sodium cloride] 2 GM TAB 1 TAB PO DAILY HYPONATREMIA (Reported) Current Medications: Current Medications Sig/Courtney Start time Last Medication Dose Route Stop Time Status Admin Acetaminophen 650 MG Q8P PRN 05/31 2215 AC 06/01 PO 0126 Albuterol Sulfate 3 ML ONCE ONE 06/02 0200 DC 06/02 INH 06/02 0201 0156 Ampicillin Sodium/ 1,500 MG Q6 06/01 1800 AC 06/02 Sulbactam Sodium IV 0516 Sodium Chloride 100 ML Aripiprazole 5 MG DAILY 06/01 1000 AC 06/01 PO 0923 Aripiprazole 2 MG DAILY 06/01 1000 AC 06/01 PO 0923 Aspirin 81 MG DAILY 06/01 1000 DC 06/01 PO 0923 Divalproex Sodium 250 MG QAM 06/01 1000 AC 06/01 PO 0923 Divalproex Sodium 500 MG AT BEDTIME 05/31 2230 AC 06/02 PO 0313 Ferrous Sulfate 325 MG BID 06/01 2200 AC 06/01 PO 2112 Guaifenesin/ 5 ML Q6P PRN 05/31 2230 AC Dextromethorphan PO Heparin Sodium 5,000 UNIT Q8 06/01 0600 DC 06/01 (Porcine) SC 1306 Melatonin 3 MG AT BEDTIME PRN 06/02 0300 AC PO Montelukast Sodium 10 MG DAILY 06/01 1000 AC 06/01 PO 0923 Potassium Chloride 10 MEQ Q1H 06/01 1315 DC 06/01 IV 06/01 1416 2013 Sodium Chloride 1 SPRAY 4 TIMES/DAY PRN 05/31 2230 AC RADHAMES Sodium Chloride 1,000 ML ONCE ONE 05/31 2215 DC 06/01 IV 06/01 1134 0114 Tramadol HCl 50 MG Q8P PRN 05/31 2215 AC PO Review of Systems Comments The patient is a poor historian and not contributing to review of systems. Past History Travel History Traveled to [place] past 21 day No Medical History Neurological: CVA, dizziness, vertigo EENT: allergies, CHRONIC SINUS PROBLEMS Cardiovascular: stage I diastolic congestive heart failure Respiratory: NONE Gastrointestinal: lactose intolerance Hepatic: elevated transaminases in the past Renal: urinary incontinence, CHRONIC UTI Musculoskeletal: falls, degenerative knee arthritis "NO ROTATOR CUFF" R ARM Psychiatric: bipolar disease, schizophrenia Endocrine: iodine radiotherapy for GOITER Blood Disorders: NONE Cancer(s): BREAST CA s/p right lumpectomy (breast cancer, status post rig) [employer]/Reproductive: NONE Surgical History Surgical History: cholecystectomy, , lumpectomy Family History Relations & Conditions If Any: FATHER Coronary artery disease Psychosocial History Who Do You Live With? self Primary Language: Irish Smoking Status: Unknown If Ever Smoked Living Will? no Functional Ability ADLs Needs Assist: dressing, eating, toileting, bathing. Ambulation: walker IADLs Needs Assist: shopping, housework, finances, food prep, telephone, transportation, medication admin. Exam & Diagnostic Data Last 24 Hrs of Vital Signs/I&O Vital Signs Date Time Temp Pulse Resp B/P B/P Pulse O2 O2 Flow FiO2 Mean Ox Delivery Rate 06/02 0630 98.0 79 20 116/58 97 06/02 0210 96 Nasal 3.0L Cannula 06/02 0000 Nasal 3.0L Cannula 01/02 2143 98.3 70 20 119/50 92 Nasal 3.0L Cannula 06/01 1600 Nasal 3.0L Cannula 06/01 1503 97.6 98 18 99/50 93 06/01 1413 Nasal 3.0L Cannula 06/01 1412 97 Nasal 3.0L Cannula Intake & Output 06/02 1600 06/02 0800 06/02 0000 Intake Total 250 700 Output Total 100 Balance 250 600 Intake, IV 250 300 Intake, Oral 400 Output, Urine 100 Last 48 Hrs of Labs/Neo: Laboratory Tests 06/01/171824: Retic Count 0.51 06/01/171824: Haptoglobin Pending 06/01/171824: Vitamin B12 > 1000 H, Folate 11.0, CBC w Diff NO MAN DIFF REQ, RBC 3.17 L, MCV 82.8, MCH 27.2, RDW 22.2 H, MPV 8.2, Gran % 76.3 H, Lymphocytes % 17.8 L, Monocytes % 5.2, Eosinophils % 0.3, Basophils % 0.4, Absolute Granulocytes 2.8, Absolute Lymphocytes 0.7 L, Absolute Monocytes 0.2, Absolute Eosinophils 0, Absolute Basophils 0, PUBS MCHC 32.8 L 06/01/17 1125: CBC w Diff MAN DIFF ORDERED, RBC 2.61 L, MCV 82.1, MCH 27.5, RDW 21.4 H, MPV 7.7, Gran % 66.1, Lymphocytes % 22.3, Monocytes % 10.8 H, Eosinophils % 0.3, Basophils % 0.5, Absolute Granulocytes 2.3, Segmented Neutrophils 61, Band Neutrophils 8 H, Absolute Lymphocytes 0.8 L, Lymphocytes 24, Monocytes 7, Absolute Monocytes 0.4, Absolute Eosinophils 0, Absolute Basophils 0, Platelet Estimate DECREASED, Polychromasia 1+, Hypochromic-Microcytic 1+, Anisocytosis 1+ , Ovalocytes 1+, PUBS MCHC 33.5 06/01/17 0715: Anion Gap 6, Estimated GFR > 60, BUN/Creatinine Ratio 38.3 H, Iron 17 L, TIBC 241 L, Ferritin 207.0, Troponin I 0.02, CBC w Diff NO MAN DIFF REQ, RBC 2.71 L , MCV 82.3, MCH 27.4, RDW 21.8 H, MPV 8.4, Gran % 63.9, Lymphocytes % 23.7, Monocytes % 11.6 H, Eosinophils % 0.2, Basophils % 0.6, Absolute Granulocytes 2.7, Absolute Lymphocytes 1.0 L, Absolute Monocytes 0.5, Absolute Eosinophils 0 , Absolute Basophils 0, PUBS MCHC 33.3 06/01/1754: Urinalysis LIGHT H, Urine Color YEL, Urine Clarity HAZY H, Urine pH 6.0, Ur Specific [place] 1.020, Urine Protein NEG, Urine Ketones TRACE H, Urine Nitrite NEG, Urine Bilirubin NEG, Urine Urobilinogen 0.2, Ur Leukocyte Esterase NEG, Ur Microscopic SEDIMENT EXAMINED, Urine RBC 1-3, Urine WBC 1-3 H, Ur Epithelial Cells MOD H, Urine Crystals 1+ UR AC H, Urine Bacteria RARE H, Urine Mucus FEW, Urine Hemoglobin TRACE-INTACT, Urine Glucose NEG 05/31/17 2017: Lactic Acid Cancelled 05/31/17 1813: Anion Gap 8, Estimated GFR > 60, BUN/Creatinine Ratio 35.0 H, Glucose 84, Lactic Acid 1.1, Calcium 9.0, Total Bilirubin 0.3, AST 25, ALT 47, Alkaline Phosphatase 72, Troponin I 0.02, Total Protein 5.8 L, Albumin 3.0 L, Globulin 2.8, Albumin/Globulin Ratio 1.1, Lipase 20 L, Free T4 1.56, Total T3 1.00, TSH &T3 &Free T4 Intrp 0.167 L, Cortisol PM Sample 23.7 H, CBC w Diff NO MAN DIFF REQ, RBC 3.49 L, MCV 80.7 L, MCH 27.2, RDW 21.4 H, MPV 7.9, Gran % 83.4 H, Lymphocytes % 7.2 L, Monocytes % 9.1, Eosinophils % 0, Basophils % 0.3, Absolute Granulocytes 5.1, Absolute Lymphocytes 0.4 L, Absolute Monocytes 0.6, Absolute Eosinophils 0, Absolute Basophils 0, PUBS MCHC 33.7, Valproic Acid 64.0 05/31/17 1717: Virus Culture Pending Microbiology 06/01 54 URINE ROUT: Legionella Antigen - COMP 06/01 54 URINE ROUT: Streptococcus pneumoniae Antigen (M - COMP 05/31 1744 NASOPHARYN: Influenza Virus A & B Rapid Smear - COMP Diagnostic Data CXR Results Low lung volume is present bilaterally. Subtle bibasilar airspace disease is noted (left greater than right), consistent with previously documented, clinically known bibasilar hypoventilatory, atelectatic changes. The remainder of the lung lara are clear. The cardiomediastinal silhouette is mildly enlarged, unchanged. There is no pleural effusion present. The visualized upper abdomen is unremarkable. IMPRESSION: No significant change since 05/19/2017. Other Results CT Chest and Abdomen: No evidence for acute abdominal or pelvic inflammatory or infectious processes. No abdominal or pelvic free fluid. No retroperitoneal hemorrhage identified. Multifocal airspace disease concerning for pneumonia. Recommendation is for a followup chest series to be obtained following treatment and/or resolution of symptoms to assure resolution of this appearance. Bilateral thyroid nodules. Fat-containing umbilical hernia. Assessment/Plan Impression/Plan: 1. Fever, likely related to multilobar pneumonia. 2. Chronic anemia without evidence of bleeding. 3. History of hyponatremia, on fluid restriction. 4. Moderate . 5. History of congestive heart failure. 6. History of bipolar disorder and schizoaffective disorder. 7. History of breast cancer status post lumpectomy with radiation. Recommendations: * Check urine for pneumococcus and Legionella. * Continue IV Unasyn pending culture results. * Need to consider treatment for healthcare associated pneumonia, and I would recommend ID input to determine if antibiotic change is necessary. * Check a swallowing evaluation. * Maintain strict aspiration precautions. * TRC consult for nebulizer treatments every 4 hours while awake. * Check an ABG to rule out hypercarbia in the setting of mental status change and lethargy. * Continue guaifenesin. * DVT prophylaxis at all times. * Thank you for the consult, will follow along with you and provide further recommendations as necessary. Consult Acknowledgment - Thank you for your consult request.
[2017-06-02 12:44] LABS: ABSOLUTE BASOPHIL COUNT 0 /CUMM (0.0-0.2); ABSOLUTE EOSINOPHIL COUNT 0 /CUMM (0.0-0.7); ABSOLUTE GRANULOCYTE CT 3.7 /CUMM (1.4-6.5); ABSOLUTE LYMPH COUNT 0.7 /CUMM (1.2-3.4); ABSOLUTE MONOCYTE COUNT 0.4 /CUMM (0.10-0.60); BASOPHIL % 0.5 % (0.0-2.0); EOSINOPHIL % 0.1 % (0-5); GRANULOCYTE % 77.1 % (42.2-75.2); HEMATOCRIT 23.8 % (37-47); MEAN CORPUSCULAR HGB 26.6 PG (27.0-31.0); MEAN CORPUSCULAR HGB CONC 32.1 G/DL (33.0-37.0); MEAN CORPUSCULAR VOLUME 82.9 FL (81.0-99.0); MEAN PLATELET VOLUME 8.6 FL (7.4-10.4); PLATELET COUNT 143 /CUMM (130-400); RBC DISTRIBUTION WIDTH 22.1 % (11.5-14.5); RED BLOOD CELL CT 2.87 /CUMM (4.20-5.40); WHITE BLOOD CELL COUNT 4.8 /CUMM (4.8-10.8)
[2017-06-02 14:31] VITALS: BP 120/62
--- NOTE | 2017-06-02 16:11 | Cons- Infect Disease ---
General Information and HPI Consulting Request Date of Consult: 06/02/17 Requested By: Gris Hernandez MD Reason for Consult: Rule out pneumonia Source of Information: patient, old records Exam Limitations: clinical condition History of Present Illness: This is a 71-year-old woman, senior living resident, with schizoaffective disorder, status post CVA, with a history of chronic hyponatremia, maintained on a 1 L fluid restriction, HFpEF, aortic stenosis, goiter, status post radioactive iodine, breast cancer status post right lumpectomy and radiation, with multiple admissions over the past year for weakness/hyponatremia, most recently 12 days prior to admission, found at that time to be hyponatremic and treated with Doxycycline for bronchitis, admitted on May 31 after she was sent to the emergency room because of fever, confusion, lethargy and cough. On admission she was febrile to 100.8. Laboratory data revealed a white blood cell count of 7000, sodium 140, BUN/creatinine 26 and 0.6, with normal liver enzymes. Urinalysis 3-5 RBCs/rare WBCs. Chest x-ray revealed bibasilar airspace disease, unchanged from her previous x-ray. CT of the head was negative for any acute process. She was initially followed off antibiotics. Her blood pressure dropped overnight to 63/40, for which she received IV fluids, with improvement in her blood pressure. On June [address] of the chest, abdomen and pelvis which revealed multifocal airspace disease within the right upper lobe and both lower lobes, and she was begun on Unasyn. She defervesced after admission and her white blood cell count has remained normal. At present she reports improvement, feeling stronger than yesterday. She does report a cough, nonproductive, and continued shortness of breath but denies any chest pain. She also notes discomfort in both heels. Allergies/Medications Allergies: Coded Allergies: Sulfa (Sulfonamide Antibiotics) (Intermediate, FACIAL EDEMA 10/16/16) azithromycin (Intermediate, THROAT CLOSURE 10/16/16) egg (Intermediate, SWOLLEN RED EYES 10/16/16) atorvastatin (UNKNOWN 10/16/16) cephalexin (From KEFLEX) (UNKNOWN 05/31/17) lactose (UNKNOWN 10/16/16) ciprofloxacin (ANXIETY 10/16/16) Home Med List: Aripiprazole (Abilify) 2 MG TABLET 7 MG PO DAILY MENTAL HEALTH (Reported) Aspirin (Aspirin*) 81 MG TAB.CHEW 1 TAB PO DAILY HEART HEALTH (Reported) Diclofenac Sodium (Voltaren) 1 % GEL..GRAM. 1 GM TOP 4 TIMES/DAY PAIN ( Reported) apply to affected area(s) Divalproex Sodium 500 MG TABLET.DR 1 TAB PO QHS MENTAL HEALTH (Reported) Divalproex Sodium 250 MG TABLET.DR 1 TAB PO QAM MENTAL HEALTH (Reported) Furosemide (Lasix) 40 MG TABLET 0.5 TAB PO QAM CHF (Reported) Guaifenesin/Dextromethorphan (Guaifenesin Dm Syrup) 100 MG-10 MG/5 ML SYRUP 1 TSP PO Q6-PRN PRN COUGH (Reported) [LACTAID] (Unknown Strength) TAB (Unknown Dose) PO DAILY LACTOSE INTOLERANT ( Reported) Lactase (Lactaid) (Unknown Strength) TABLET 1 TAB PO AD PRN LACTOSE INTOLERANT (Reported) Montelukast Sodium 10 MG TABLET 10 MG PO DAILY ALLERGIES (Reported) Potassium Chloride 20 MEQ TAB.ER.PRT 1 TAB PO DAILY SUPPLEMENT (Reported) Rosuvastatin Calcium (Crestor) 5 MG TABLET 5 MG PO QHS CHOLESTROL (Reported) Sodium Chloride (Saline Nasal [place]) 0.65 % SPRAY 1 SPRAY NASB 4 TIMES/DAY PRN ALLERGIES (Reported) [Sodium cloride] 2 GM TAB 1 TAB PO DAILY HYPONATREMIA (Reported) Past History Travel History Traveled to [place] past 21 day No Medical History Neurological: CVA, dizziness, vertigo EENT: allergies, CHRONIC SINUS PROBLEMS Cardiovascular: stage I diastolic congestive heart failure Respiratory: NONE Gastrointestinal: lactose intolerance Renal: urinary incontinence, CHRONIC UTI Musculoskeletal: falls, degenerative knee arthritis "NO ROTATOR CUFF" R ARM Psychiatric: bipolar disease, schizophrenia Endocrine: iodine radiotherapy for GOITER Blood Disorders: NONE Cancer(s): BREAST CA (breast cancer, status post rig) HUMANITIES COORDINATOR/Reproductive: NONE History of MRSA: No History of VRE: No History of CDIFF: No Isolation History: Standard Surgical History Surgical History: cholecystectomy, , lumpectomy (right) Family History Relations & Conditions If Any: FATHER Coronary artery disease Psychosocial History Who Do You Live With? self Primary Language: Latvian Smoking Status: Unknown If Ever Smoked Living Will? no Functional Ability ADLs Needs Assist: dressing, eating, toileting, bathing. Ambulation: walker IADLs Needs Assist: shopping, housework, finances, food prep, telephone, transportation, medication admin. Review of Systems Review of Systems Cardiovascular: Denies: chest pain. GI: Denies: abdominal pain, diarrhea, nausea, vomiting. Genitourinary: Reports: no symptoms. Musculoskeletal: Denies: joint pain. All Other Systems: Reviewed and Negative Exam & Diagnostic Data Last 24 Hrs of Vital Signs/I&O Vital Signs Date Time Temp Pulse Resp B/P B/P Pulse O2 O2 Flow FiO2 Mean Ox Delivery Rate 06/02 1432 22 95 Nasal 2.0L Cannula 06/02 1431 98.3 78 18 120/62 96 06/02 1007 22 95 Nasal 2.0L Cannula 06/02 1007 22 98 Nasal 3.0L Cannula 06/02 0933 97 Nasal 3.0L Cannula 06/02 0800 98 Nasal 3.0L Cannula 06/02 0730 24 97 Nasal 3.0L Cannula 06/02 0630 98.0 79 20 116/58 97 06/02 0210 96 Nasal 3.0L Cannula 06/02 0000 Nasal 3.0L Cannula 06/01 2143 98.3 70 20 119/50 92 Nasal 3.0L Cannula 06/01 1600 Nasal 3.0L Cannula Intake & Output 06/02 1600 06/02 0800 06/02 0000 Intake Total 550 250 700 Output Total 100 100 Balance 450 250 600 Intake, IV 100 250 300 Intake, Oral 450 400 Number 0 Bowel Movements Output, Urine 100 100 Physical Exam Other Physical Findings: Afebrile. She is lethargic but arousable, oriented to person and place in no acute distress. Skin reveals no rash. HEENT negative. Neck is supple with no adenopathy. Lungs diffuse rhonchi bilaterally. Heart regular rhythm with no murmur. Abdomen is obese, soft, nontender with positive bowel sounds. Back no CVA tenderness. Extremities 1+ edema both lower extremities; no erythema or breakdown of her heels. Neuro is without focality. Last 24 Hours of Lab Results: Laboratory Tests 06/02 06/02 06/01 1330 0835 1825 Blood Gas pH (7.35 - 7.45 PH) 7.47 H pCO2 (35 - 45 TORR) 33 L pO2 (80 - 100 TORR) 84 HCO3 (21 - 28 MEQ/L) 23 ABG O2 Sat (Measured) (>96.0 %) 96.0 Carboxyhemoglobin (1.5 - 5.0 %) 0.3 L O2 Concentration % 3L O2 Delivery Method NC Chemistry Sodium (137 - 145 mmol/L) 141 Potassium (3.5 - 5.1 mmol/L) 3.4 L Chloride (98 - 107 mmol/L) 105 Carbon Dioxide (22 - 30 mmol/L) 28 Anion Gap (5 - 16) 8 BUN (7 - 17 mg/dL) 13 Creatinine (0.5 - 1.0 mg/dL) 0.5 Estimated GFR (>60 ml/min) > 60 BUN/Creatinine Ratio (7 - 25 %) 26.0 H Hematology CBC w Diff NO MAN DIFF REQ WBC (4.8 - 10.8 /CUMM) 4.8 RBC (4.20 - 5.40 /CUMM) 2.87 L Hgb (12.0 - 16.0 G/DL) 7.6 L Hct (37 - 47 %) 23.8 L MCV (81.0 - 99.0 FL) 82.9 MCH (27.0 - 31.0 PG) 26.6 L RDW (11.5 - 14.5 %) 22.1 H Plt Count (130 - 400 /CUMM) 143 MPV (7.4 - 10.4 FL) 8.6 Gran % (42.2 - 75.2 %) 77.1 H Lymphocytes % (20.5 - 51.1 %) 14.4 L Monocytes % (1.7 - 9.3 %) 7.9 Eosinophils % (0 - 5 %) 0.1 Basophils % (0.0 - 2.0 %) 0.5 Absolute Granulocytes (1.4 - 6.5 /CUMM) 3.7 Absolute Lymphocytes (1.2 - 3.4 /CUMM) 0.7 L Absolute Monocytes (0.10 - 0.60 /CUMM) 0.4 Absolute Eosinophils (0.0 - 0.7 /CUMM) 0 Absolute Basophils (0.0 - 0.2 /CUMM) 0 PUBS MCHC (33.0 - 37.0 G/DL) 32.1 L Retic Count (0.5 - 2.0 %) 0.51 Miscellaneous Phlebotomy Draw Site LEFT RADIAL 06/01 06/01 1019 1487 Chemistry Vitamin B12 (239 - 931 pg/mL) > 1000 H Folate (2.76 - 20.0 ng/mL) 11.0 Hematology CBC w Diff NO MAN DIFF REQ WBC (4.8 - 10.8 /CUMM) 3.7 L RBC (4.20 - 5.40 /CUMM) 3.17 L Hgb (12.0 - 16.0 G/DL) 8.6 L Hct (37 - 47 %) 26.2 L MCV (81.0 - 99.0 FL) 82.8 MCH (27.0 - 31.0 PG) 27.2 RDW (11.5 - 14.5 %) 22.2 H Plt Count (130 - 400 /CUMM) 148 MPV (7.4 - 10.4 FL) 8.2 Gran % (42.2 - 75.2 %) 76.3 H Lymphocytes % (20.5 - 51.1 %) 17.8 L Monocytes % (1.7 - 9.3 %) 5.2 Eosinophils % (0 - 5 %) 0.3 Basophils % (0.0 - 2.0 %) 0.4 Absolute Granulocytes (1.4 - 6.5 /CUMM) 2.8 Absolute Lymphocytes (1.2 - 3.4 /CUMM) 0.7 L Absolute Monocytes (0.10 - 0.60 /CUMM) 0.2 Absolute Eosinophils (0.0 - 0.7 /CUMM) 0 Absolute Basophils (0.0 - 0.2 /CUMM) 0 PUBS MCHC (33.0 - 37.0 G/DL) 32.8 L Haptoglobin Pending Last 24 Hours of Neo Results: Blood cultures May 31 negative Urine culture May 31 negative Rapid flu swab May 31 negative Urine culture June 01 negative Urine strep pneumo antigen and Legionella antigen June 01 negative Diagnostic Data Recent Imaging Findings: Chest x-ray May 31, personally reviewed, reveals subtle bibasilar airspace disease, left greater than right, unchanged from the previous study CT of the head May [address] of the chest, abdomen and pelvis June 01 revealed multifocal airspace disease within the right upper lobe and both lower lobes Assessment/Plan Assessment/Plan Impression: This is a 71-year-old woman, senior living resident, with schizoaffective disorder, status post CVA, with a history of chronic hyponatremia, maintained on a 1 L fluid restriction, and HFpEF, with multiple admissions over the past year for weakness/hyponatremia, most recently 12 days prior to admission, at which time she was treated with Doxycycline for bronchitis, admitted on May 31 because of fever, confusion, lethargy and cough, found to have a low-grade fever with a normal white blood cell count and with a CT of the chest on the day after admission revealing multifocal airspace disease concerning for pneumonia. She appears to be somewhat improved, with temperatures now normal and with a slight decrease in her oxygen requirements from yesterday; therefore she can be continued on Unasyn at this time for a presumed pneumonia. Though she appears to be at increased risk for aspiration she passed a bedside swallowing evaluation earlier today, with minimal evidence for aspiration. Suggestion: 1. Would attempt to obtain a sputum culture, by induction if necessary 2. Offloading of both heels 3. Continue Unasyn Consult Acknowledgment - Thank you for your consult request.
[2017-06-02 21:52] VITALS: BP 118/64
[2017-06-03 06:45] VITALS: BP 136/48
--- NOTE | 2017-06-03 07:28 | PN-Observation ---
Phong GARCIA,Inna 06/03/17 0728: Assessment/Plan Assessment: 71-year-old female with past medical history of hypothermia, hyponatremia, vertigo, urinary incontinence, mild to moderate , CVA, CHF, DJD, bipolar disorder, schizoaffective disorder, chronic pedal edema, breast cancer s/p lumpectomy/radiation was brought in from short-term rehabilitation with a temperature recording of 100.3 and altered mental status strated yesterdy. Her H&H has dropped this morning to 7.4/22.3 Health care associated pneumonia Patient met the criteria of healthcare associated pneumonia since she was living in [facility] CT chest showed multifocal airspace disease concerning for pneumonia Strep pneumonia and the legionella were negative Continue Unasyn empirically for now pending culture results (day 3) Continue Guafenisin TRC Strict aspiration precaution Chronic hyponatremia Improved Patient is on fluid restriction for chronic hyponatremia Resume Salt tabs Overnight the patient was found to be hypotensive and required 1.250 bolus of normal saline Severe anemia H&H has dropped down to 7.6/23.8, MCV was normal, a low serum iron and TIBC, most likely her anemia is caused by mixture of iron deficiency and chronic illness Continue ferrous sulfate tablets Guaiac was negative Blood type and crossmatch, will consider PRBC transfusion if her hemoglobin dropped below 7 CT abdomen and pelvis with IV contrast ruled out with GI bleeding ? UTI this morning the pt c/o of difficulty urinating and burning she is incontinent bladder scan only showed residual of 35 cc will send urinanalysis and c/s to r/o UTI If she continues of difficulty to pass urine, will need cath. Patient is full code DVT prophylaxis alPS Chopped diet with thin liquids Problem List: 1. Pneumonia 2. Hyponatremia DVT/Prophylaxis: mechanical Subjective Follow-up For: 1.Confusion, altered mentation 2. Fever of unclear etiology 3. Possible viral bronchitis recently completed course of doxycycline 4. Transient hypotension likely volume depleted 5. Severe anemai Subjective: Patient seen and examined at bedside, she looks more awake and alert today, only endorses productive cough. she also c/o of difficulty urinating and burning, she is incontinent. denies any pain, fever, chills, chest pain. She also denies any nausea vomiting or diarrhea. Review of Systems Constitutional: Denies: chills, fever. Cardiovascular: Denies: no symptoms. Respiratory: Reports: cough, short of breath, sputum production. Gastrointestinal: Denies: no symptoms. Genitourinary: Denies: no symptoms. Musculoskeletal: Denies: no symptoms. Objective Last 24 Hrs of Vital Signs/I&O Vital Signs Date Time Temp Pulse Resp B/P B/P Pulse O2 O2 Flow FiO2 Mean Ox Delivery Rate 06/03 0802 118/70 06/03 0734 Nasal 2.0L Cannula 06/03 0645 77 136/48 06/03 0619 97.6 73 20 94 06/03 0226 96 Nasal 2.0L Cannula 06/03 0000 Nasal 2.0L Cannula 06/02 2152 97.9 93 20 118/64 94 Nasal 2.0L Cannula 06/02 1635 97 Nasal 2.0L Cannula 06/02 1600 95 Nasal 2.0L Cannula 06/02 1432 22 95 Nasal 2.0L Cannula 06/02 1431 98.3 78 18 120/62 96 06/02 1007 22 95 Nasal 2.0L Cannula 06/02 1007 22 98 Nasal 3.0L Cannula 06/02 0933 97 Nasal 3.0L Cannula Intake & Output 06/03 1600 06/03 0800 06/03 0000 Intake Total 490 620 Output Total 400 550 Balance 90 70 Intake, IV 250 120 Intake, Oral 240 500 Number 0 Bowel Movements Output, Urine 400 550 Physical Exam General Appearance: Alert, Oriented X3, Cooperative, No Acute Distress Skin: No Rashes, No Breakdown, No Significant Lesion HEENT: Atraumatic, PERRLA, EOMI, Mucous Membr. moist/pink Neck: Supple, No JVD Cardiovascular: Normal S1, Normal S2, No Murmurs Lungs: wide spread rales Abdomen: Normal Bowel Sounds, Soft, No Tenderness Neurological: Normal Speech Extremities: No Clubbing, No Cyanosis, No Edema Vascular: Normal Pulses Michael Mata MD 06/03/17 1851: Attending MD Review Statement Attending Statement Attending MD Statement: examined this patient, discuss w/resident/PA/FORMING MACHINE TENDER, agreed w/resident/PA/FORMING MACHINE TENDER, reviewed EMR data (avail), discussed w/nursing, discussed w/ case mgmt, amended to note Attending Assessment/Plan: The patient was seen and discussed with house staff, nursing and case management. Pulmonary input appreciated. Doing better on IV Unasyn. Patient notes constipation and some dysuria/feeling of fullness in bladder. Nursing states patient has been incontinent of urine. Will check U/A, C&S, check PVR and decide if needs catheter. Convert to full admission per case management (patient will not lose bed at [facility] if admitted as daughter was concerned).
[2017-06-03 08:02] VITALS: BP 118/70
[2017-06-03 08:12] LABS: ABSOLUTE BASOPHIL COUNT 0 /CUMM (0.0-0.2); ABSOLUTE EOSINOPHIL COUNT 0.1 /CUMM (0.0-0.7); ABSOLUTE GRANULOCYTE CT 2.7 /CUMM (1.4-6.5); ABSOLUTE LYMPH COUNT 0.9 /CUMM (1.2-3.4); ABSOLUTE MONOCYTE COUNT 0.3 /CUMM (0.10-0.60); BASOPHIL % 0.5 % (0.0-2.0); EOSINOPHIL % 1.3 % (0-5); GRANULOCYTE % 67.3 % (42.2-75.2); HEMATOCRIT 22.6 % (37-47); MEAN CORPUSCULAR HGB 27.3 PG (27.0-31.0); MEAN CORPUSCULAR HGB CONC 33.4 G/DL (33.0-37.0); MEAN CORPUSCULAR VOLUME 81.8 FL (81.0-99.0); PLATELET COUNT 143 /CUMM (130-400); RBC DISTRIBUTION WIDTH 21.6 % (11.5-14.5); RED BLOOD CELL CT 2.77 /CUMM (4.20-5.40)
--- NOTE | 2017-06-03 09:49 | PN- Pulmonary ---
Subjective HPI/Critical Care Issues: The patient is much more awake today. She remains intermittently confused. She is not offering any specific complaints. She denies shortness of breath. Her oxygen saturation is 94% on 2 L nasal cannula. She remains afebrile. Her blood pressure has remained stable. There were no overnight events noted. Objective Current Medications: Current Medications Sig/Courtney Start time Last Medication Dose Route Stop Time Status Admin Acetaminophen 650 MG Q8P PRN 05/31 2215 AC 06/01 PO 0126 Albuterol Sulfate 3 ML EVERY 4 HRS/AWAKE 06/02 2000 AC 06/03 INH 0733 Albuterol Sulfate 3 ML Q4 06/02 1000 DC 06/02 INH 1635 Ampicillin Sodium/ 1,500 MG Q6 06/01 1800 AC 06/03 Sulbactam Sodium IV 0648 Sodium Chloride 100 ML Aripiprazole 5 MG DAILY 06/01 1000 AC 06/03 PO 0811 Aripiprazole 2 MG DAILY 06/01 1000 AC 06/03 PO 0811 Divalproex Sodium 250 MG QAM 06/01 1000 AC 06/03 PO 0811 Divalproex Sodium 500 MG AT BEDTIME 05/31 2230 AC 06/02 PO 2111 Ferrous Sulfate 325 MG BID 06/01 2200 AC 06/03 PO 0811 Guaifenesin/ 5 ML Q6P PRN 05/31 2230 AC Dextromethorphan PO Melatonin 3 MG AT BEDTIME PRN 06/02 0300 AC PO Montelukast Sodium 10 MG DAILY 06/01 1000 AC 06/03 PO 0812 Patient Medication 1 ED ONE ONE 06/02 1230 DC 06/02 Teaching ED 06/02 1231 1324 Potassium Chloride 40 MEQ ONCE ONE 06/02 1400 DC 06/02 PO 06/02 1401 1614 Sodium Chloride 1 SPRAY 4 TIMES/DAY PRN 05/31 2230 AC RADHAMES Tramadol HCl 50 MG Q8P PRN 05/31 2215 AC PO Vital Signs & I&O Last 24 Hrs of Vitals and I&O: Vital Signs Date Time Temp Pulse Resp B/P B/P Pulse O2 O2 Flow FiO2 Mean Ox Delivery Rate 06/03 0802 118/70 06/03 0734 Nasal 2.0L Cannula 06/03 0645 77 136/48 06/03 0619 97.6 73 20 94 06/03 0226 96 Nasal 2.0L Cannula 06/03 0000 Nasal 2.0L Cannula 06/02 2152 97.9 93 20 118/64 94 Nasal 2.0L Cannula 06/02 1635 97 Nasal 2.0L Cannula 06/02 1600 95 Nasal 2.0L Cannula 06/02 1432 22 95 Nasal 2.0L Cannula 06/02 1431 98.3 78 18 120/62 96 06/02 1007 22 95 Nasal 2.0L Cannula 06/02 1007 22 98 Nasal 3.0L Cannula Intake & Output 06/03 1600 06/03 0800 06/03 0000 Intake Total 490 620 Output Total 400 550 Balance 90 70 Intake, IV 250 120 Intake, Oral 240 500 Number 0 Bowel Movements Output, Urine 400 550 Physical Exam General Appearance: no apparent distress, alert, awake, comfortable Head: atraumatic Eyes: Bilateral: PERRL. Neck: supple Respiratory: quiet respiration, decreased breath sounds Cardiovascular: regular rate/rhythm Gastrointestinal: normal bowel sounds, soft, non-tender Extremities: no edema Skin: intact, normal color, warm/dry Results Last 24 Hrs of Lab Results: Laboratory Tests 06/03/17 0630: Anion Gap 8, Estimated GFR > 60, BUN/Creatinine Ratio 32.5 H, CBC w Diff NO MAN DIFF REQ, RBC 2.77 L, MCV 81.8, MCH 27.3, RDW 21.6 H, MPV 8.0, Gran % 67.3, Lymphocytes % 23.8, Monocytes % 7.1, Eosinophils % 1.3, Basophils % 0.5, Absolute Granulocytes 2.7, Absolute Lymphocytes 0.9 L, Absolute Monocytes 0.3, Absolute Eosinophils 0.1, Absolute Basophils 0, PUBS MCHC 33.4 06/02/17 1330: pH 7.47 H, pCO2 33 L, pO2 84, HCO3 23, ABG O2 Sat (Measured) 96.0, Carboxyhemoglobin 0.3 L, O2 Concentration % 3L, O2 Delivery Method NC, Phlebotomy Draw Site LEFT RADIAL Last 24 Hrs of Micro Results: Cultures negative so far. Impression/Plan Impression/Plan Impression/Plan: 1. Fever, likely related to multilobar pneumonia. 2. Chronic anemia without evidence of bleeding - stable over past 2 days. 3. History of hyponatremia, on fluid restriction and salt tabs. 4. Moderate . 5. History of congestive heart failure. 6. History of bipolar disorder and schizoaffective disorder. 7. History of breast cancer status post lumpectomy with radiation. Recommendations: * Continue IV Unasyn per ID. * Maintain strict aspiration precautions, continue to follow up speech therapy recommendations. * TRC input/treatment to continue. * Continue guaifenesin. * DVT prophylaxis at all times. * Increase activity, out of bed to chair.
[2017-06-03 14:54] VITALS: BP 120/58
[2017-06-03 22:31] VITALS: BP 136/74
--- NOTE | 2017-06-04 04:55 | Event Note ---
Event Note Event Note: S; I was informed by the nurse that the patient is having difficulty breathing, has a respiratory rate of 24 and O2 sats of 91% after is increasing the oxygen to 3 L. B; Patient is being admitted for healthcare associated pneumonia and treated with Unasyn empirically for now pending culture results. A/R; I went to see the patient. Patient lying in her bed, with slightly labored breathing. States she had the shortness of breath since morning but it has worsened now. Denies any chest pain or palpitations. Normal S1 and S2 and chest clear on auscultation. Vitals were temperature 90.8, blood pressure 144/69, heart rate 90, respiratory rate 24 Troponins, EKG and chest x-ray were ordered. Troponins were 0.01 without any EKG changes. Was paged by the nurse again that the O2 sats have dropped down to 81% on 5 L and now the patient feels dizzy. Resident Dr. chen and Dr. Penn(the attending) were informed. ABGs were ordered showing a pH of 7.46, PO2 of 73 and PCO2 of 44. Patient was sent for CTA chest to rule out PE(Since the patient is not on any DVT prophylaxis, the suspicion for PE remains high) But could not be completed because of no IV access. It was signed out to the morning team to get an IV access as soon as possible and CTA chest be Obtained.
[2017-06-04 06:35] VITALS: BP 122/68
--- NOTE | 2017-06-04 08:22 | CT SCAN REPORT ---
EXAMINATION: CT LIMITED OR FOLLOWUP CLINICAL INFORMATION: 71-year-old female with shortness of breath. COMPARISON: Chest CT exams from 05/20/2017 and 06/01/2017 TECHNIQUE: Patient was placed on the CT imaging table in order to undergo CT angiography of the chest for pulmonary embolism evaluation. However, the electrophysiology technologist reports that due to difficulty with intravenous access, the CT angiography study could not be completed at this time. DLP: 4.58 mGy-cm FINDINGS: The limited imaging through the chest at the level of the main pulmonary artery shows new consolidation in the right upper lobe (and/or lateral segment of the right middle lobe) and persistent, apparent worse consolidation in medial aspect of each lower lobe (suboptimally evaluated). Trace bilateral pleural effusions. Note that the recent chest CT performed with intravenous contrast on 06/01/2017 had adequate contrast opacification of pulmonary arteries and there was no evidence of pulmonary embolism on 06/01/2017; instead, there were multifocal regions of consolidation, consistent with pneumonia on this prior exam. IMPRESSION: 1. Chest CT angiography could not be completed at this time due to lack of proper intravenous access. 2. Multifocal consolidation is incompletely visualized on this limited chest exam, but appears worse compared to 06/01/2017.
--- NOTE | 2017-06-04 08:23 | PN- Housestaff ---
Phong GARCIA,Inna 06/04/17 0823: Subjective Follow-up For: 1.Confusion, altered mentation 2. health care associated pneumonia 5. Severe anemai Subjective: Pt is seen and examined at bedside, c/o of increased SOB, saturating at 90 on 4 L NC, she also c/o of productive cough and chest congestion, denies any chest pain, fever, chillis , nauseas or vomiting. Review of Systems Constitutional: Denies: no symptoms. Cardiovascular: Denies: no symptoms. Respiratory: Reports: cough, short of breath, sputum production. Gastrointestinal: Denies: no symptoms. Genitourinary: Denies: no symptoms. Musculoskeletal: Denies: no symptoms. Objective Last 24 Hrs of Vital Signs/I&O Vital Signs Date Time Temp Pulse Resp B/P B/P Pulse O2 O2 Flow FiO2 Mean Ox Delivery Rate 06/04 0635 97.5 84 22 122/68 96 Nasal Cannula 06/04 0215 90 Nasal 2.0L Cannula 06/04 0000 Nasal 2.0L Cannula 06/03 2231 97.9 80 20 136/74 95 Nasal 2.0L Cannula 06/03 2101 94 Nasal 3.0L Cannula 06/03 1600 Nasal 2.0L Cannula 06/03 1454 98.1 82 20 120/58 91 Nasal 2.0L Cannula 06/03 1342 95 Nasal 2.0L Cannula Intake & Output 06/04 1600 06/04 0800 06/04 0000 Intake Total 400 Output Total 400 Balance 0 Intake, Oral 400 Number 1 2 Bowel Movements Output, Urine 400 Physical Exam General Appearance: Alert, Oriented X3, Cooperative, No Acute Distress Skin: No Rashes, No Breakdown, No Significant Lesion HEENT: Atraumatic, PERRLA, EOMI, Mucous Membr. moist/pink Neck: Supple, No JVD Cardiovascular: Normal S1, Normal S2, No Murmurs Lungs: wide spread wheezes with diminshed air entery Abdomen: Normal Bowel Sounds, Soft, No Tenderness Neurological: Normal Speech Extremities: No Clubbing, No Cyanosis, No Edema Assessment/Plan Assessment: 71-year-old female with past medical history of hypothermia, hyponatremia, vertigo, urinary incontinence, mild to moderate , CVA, CHF, DJD, bipolar disorder, schizoaffective disorder, chronic pedal edema, breast cancer s/p lumpectomy/radiation was brought in from short-term rehabilitation with a temperature recording of 100.3 and altered mental status strated yesterdy. Her H&H has dropped this morning to 7.4/22.3 Health care associated pneumonia The pt was noticed to have increasing oxygen requirent , currently she is on 7 L with Po2 90, worsening multilobar pneumonia, slight increase in the size of pleural effusion. Patient met the criteria of healthcare associated pneumonia since she was living in [facility] Strep pneumonia and the legionella were negative Will DC Unasyn start vancomycin, ciprofloxacin to cover for atypical pneumonia as per ID recommendation will discuss if we need to change her antibiotics with ID based on clinical pic and ct finding Continue Guafenisin TRC Strict aspiration precaution Chronic hyponatremia Improved Patient is on fluid restriction of 1000 cc for chronic hyponatremia Severe anemia most likely chronic anemai H & H 8.3/24.8 stabel , MCV was normal, a low serum iron and TIBC, most likely her anemia is caused by mixture of iron deficiency and chronic illness Continue ferrous sulfate tablets Guaiac was negative Blood type and crossmatch, will consider PRBC transfusion if her hemoglobin dropped below 7 CT abdomen and pelvis with IV contrast ruled out with GI bleeding ? UTI this morning the pt c/o of difficulty urinating and burning she is incontinent bladder scan only showed residual of 35 cc urinanalysis and urine culture was normal If she continues of difficulty to pass urine, will need cath. Patient is full code DVT prophylaxis with Lovinox Chopped diet with thin liquids Problem List: 1. Pneumonia 2. Weakness 3. Hyponatremia Pain Ratin Pain Location: n/a Pain Goal: Remain pain free Pain Plan: per pathway Tomorrow's Labs & Rationales: cbc bep DVT/Prophylaxis: mechanical Gris Hernandez MD 06/04/17 1135: Attending MD Review Statement Attending Statement Attending MD Statement: examined this patient, discuss w/resident/PA/SURGICAL SCHEDULER, agreed w/resident/PA/SURGICAL SCHEDULER, reviewed EMR data (avail) Attending Assessment/Plan: 71F PMH recurrent hypothermia, chronic hyponatremia, HfpEF, mild-moderate , schizoaffective disorder brought in under observation from [facility] for fever, confusion, and now with anemia, with Hgb dropping from 9.3 to 7.4 with no obvious signs of bleeding. Hypotensive initially and given IV fluids, now normotensive. Her breathing has worsened and she is now dyspneic at rest and requiring 5L NC. Hgb is stable. CTA chest shows no PE but worsening pneumonia. 1. Bilateral lower lobe pneumonia 2. Acute on chronic hypoxemic respiratory failure 3. Hypotension (resolved) 4. Metabolic encephalopathy (resolved) Plan - Continue on general medicine - Continue Unasyn, will defer to ID regarding broadening coverage given worsening pneumonia - Re-send sputum culture - Follow pulmonary recommendations - Monitor for signs of bleeding - Follow cultures - Continue home medications - DVT PPx
[2017-06-04 09:00] LABS: ABSOLUTE BASOPHIL COUNT 0 /CUMM (0.0-0.2); ABSOLUTE EOSINOPHIL COUNT 0.1 /CUMM (0.0-0.7); ABSOLUTE GRANULOCYTE CT 3.7 /CUMM (1.4-6.5); ABSOLUTE LYMPH COUNT 0.5 /CUMM (1.2-3.4); ABSOLUTE MONOCYTE COUNT 0.4 /CUMM (0.10-0.60); BASOPHIL % 0.1 % (0.0-2.0); EOSINOPHIL % 1.3 % (0-5); GRANULOCYTE % 79.7 % (42.2-75.2); HEMATOCRIT 24.8 % (37-47); MEAN CORPUSCULAR HGB 27.5 PG (27.0-31.0); MEAN CORPUSCULAR HGB CONC 33.6 G/DL (33.0-37.0); MEAN CORPUSCULAR VOLUME 81.8 FL (81.0-99.0); MEAN PLATELET VOLUME 7.3 FL (7.4-10.4); PLATELET COUNT 166 /CUMM (130-400); RBC DISTRIBUTION WIDTH 21.9 % (11.5-14.5); RED BLOOD CELL CT 3.03 /CUMM (4.20-5.40); WHITE BLOOD CELL COUNT 4.6 /CUMM (4.8-10.8)
--- NOTE | 2017-06-04 09:16 | PN- Pulmonary ---
Subjective HPI/Critical Care Issues: Overnight events noted. As per the chart, the patient had increased respiratory distress, with a rate of 24 and an oxygen saturation of 91% on 3 L nasal cannula. The patient was evaluated by house staff noting she complained of slightly labored breathing. Vital signs were otherwise stable. The patient had a negative troponin without any EKG changes. She then was found to drop down to 81% on 5 L and felt dizzy. ABG showed a pH of 7.46, PaO2 of 73, PCO2 of 44, and a bicarbonate of 28. A CTA was ordered and is pending. A noncontrast CT scan of the chest demonstrated multifocal consolidation which appears worse compared to one to 18. The patient's oxygen saturation is 93% on 5 L nasal cannula at present. She is afebrile and hemodynamically stable. Objective Current Medications: Current Medications Sig/Courtney Start time Last Medication Dose Route Stop Time Status Admin Acetaminophen 650 MG .STK-MED ONE 06/03 1411 DC PO 06/03 1412 Acetaminophen 650 MG Q8P PRN 05/31 2215 AC 06/03 PO 1413 Albuterol Sulfate 3 ML EVERY 4 HRS/AWAKE 06/02 2000 AC 06/04 INH 0213 Ampicillin Sodium/ 1,500 MG Q6 06/01 1800 AC 06/04 Sulbactam Sodium IV 0623 Sodium Chloride 100 ML Aripiprazole 5 MG DAILY 06/01 1000 AC 06/03 PO 0811 Aripiprazole 2 MG DAILY 06/01 1000 AC 06/03 PO 0811 Bisacodyl 5 MG DAILY PRN 06/03 1245 AC PO Dextrose/Sodium 1,000 ML Q13H 06/04 0745 DC Chloride IV Divalproex Sodium 250 MG QAM 06/01 1000 AC 06/03 PO 0811 Divalproex Sodium 500 MG AT BEDTIME 05/31 2230 AC 06/03 PO 2145 Ferrous Sulfate 325 MG BID 06/01 2200 AC 06/03 PO 2145 Guaifenesin/ 5 ML Q6P PRN 05/31 2230 AC 06/04 Dextromethorphan PO 0417 Heparin Sodium 5,000 UNIT Q8 06/04 0708 DC 06/04 (Porcine) SC 0729 Melatonin 3 MG AT BEDTIME PRN 06/02 0300 AC PO Montelukast Sodium 10 MG DAILY 06/01 1000 AC 06/03 PO 0812 Polyethylene Glycol 17 GM DAILY PRN 06/03 1245 AC PO Sodium Chloride 1 SPRAY 4 TIMES/DAY PRN 05/31 2230 AC 06/04 RADHAMES 0254 Tramadol HCl 50 MG Q8P PRN 05/31 2215 AC PO Vital Signs & I&O Last 24 Hrs of Vitals and I&O: Vital Signs Date Time Temp Pulse Resp B/P B/P Pulse O2 O2 Flow FiO2 Mean Ox Delivery Rate 06/04 0850 93 Nasal 5.0L Cannula 06/04 0849 83 24 91 Nasal 4.0L Cannula 06/04 0635 97.5 84 22 122/68 96 Nasal Cannula 06/04 0215 90 Nasal 2.0L Cannula 06/04 0000 Nasal 2.0L Cannula 06/03 2231 97.9 80 20 136/74 95 Nasal 2.0L Cannula 06/03 2101 94 Nasal 3.0L Cannula 06/03 1600 Nasal 2.0L Cannula 06/03 1454 98.1 82 20 120/58 91 Nasal 2.0L Cannula 06/03 1342 95 Nasal 2.0L Cannula Intake & Output 06/04 1600 06/04 0800 06/04 0000 Intake Total 400 Output Total 400 Balance 0 Intake, Oral 400 Number 1 2 Bowel Movements Output, Urine 400 Physical Exam General Appearance: no apparent distress, alert, awake, comfortable Head: atraumatic Eyes: Bilateral: PERRL. Neck: supple Respiratory: quiet respiration, decreased breath sounds Cardiovascular: regular rate/rhythm Gastrointestinal: normal bowel sounds, soft, non-tender Extremities: no edema Skin: intact, normal color, warm/dry Results Last 24 Hrs of Lab Results: Laboratory Tests 06/04/17 0800: Anion Gap 9, Estimated GFR > 60, BUN/Creatinine Ratio 15.0, Troponin I Pending, CBC w Diff NO MAN DIFF REQ, RBC 3.03 L, MCV 81.8, MCH 27.5, RDW 21.9 H, MPV 7.3 L, Gran % 79.7 H, Lymphocytes % 10.2 L, Monocytes % 8.7, Eosinophils % 1.3, Basophils % 0.1, Absolute Granulocytes 3.7, Absolute Lymphocytes 0.5 L, Absolute Monocytes 0.4, Absolute Eosinophils 0.1, Absolute Basophils 0, PUBS MCHC 33.6 06/04/17 0500: pH 7.46 H, pCO2 40, pO2 73 L, HCO3 28, ABG O2 Sat (Measured) 94.0 L, P-50 ( Temp Corrected) N, Carboxyhemoglobin 0.3 L, O2 Concentration % 5L, O2 Delivery Method N/C, Phlebotomy Draw Site LEFT RADIAL 06/04/17 0400: Troponin I < 0.01 06/03/17 1420: Urine Color YEL, Urine Clarity CLEAR, Urine pH 6.0, Ur Specific [place] 1.025, Urine Protein NEG, Urine Ketones NEG, Urine Nitrite NEG, Urine Bilirubin NEG, Urine Urobilinogen 0.2, Ur Leukocyte Esterase NEG, Ur Microscopic SEDIMENT EXAMINED, Urine RBC 1-3, Urine WBC RARE, Ur Epithelial Cells RARE, Urine Bacteria RARE H, Urine Mucus FEW, Urine Hemoglobin MOD H, Urine Glucose 100 H 06/03/17 1243: Urine Color Cancelled, Urine Clarity Cancelled, Urine pH Cancelled, Ur Specific [place] Cancelled, Urine Protein Cancelled, Urine Ketones Cancelled, Urine Nitrite Cancelled, Urine Bilirubin Cancelled, Urine Urobilinogen Cancelled, Ur Leukocyte Esterase Cancelled, Ur Microscopic Cancelled, Urine Hemoglobin Cancelled, Urine Glucose Cancelled Diagnostic Data CT Scan Findings: 1. Chest CT angiography could not be completed at this time due to lack of proper intravenous access. 2. Multifocal consolidation is incompletely visualized on this limited chest exam, but appears worse compared to 06/01/2017. Impression/Plan Impression/Plan Impression/Plan: 1. Worsening hypoxemic respiratory failure in the setting of multi lobar pneumonia. Noncontrast CT scan demonstrates increased infiltrates consistent with progression. 2. Chronic anemia without evidence of bleeding - stable. 3. History of hyponatremia, on fluid restriction and salt tabs. 4. Moderate . 5. History of congestive heart failure. 6. History of bipolar disorder and schizoaffective disorder. 7. History of breast cancer status post lumpectomy with radiation. Recommendations: * Continue IV Unasyn per ID. * Please discuss worsening respiratory failure with ID - antibiotic change? * CTA ordered and is pending. * Maintain strict aspiration precautions, continue to follow up speech therapy recommendations. * TRC input/treatment to continue. * To oxygen saturations closely. Maintain saturation greater than 92%. * Continue guaifenesin. * DVT prophylaxis at all times. * Out of bed to chair.
--- NOTE | 2017-06-04 10:21 | CT SCAN REPORT ---
EXAMINATION: CT ANGIOGRAM OF THE CHEST WITH CONTRAST (CT PULMONARY ANGIOGRAM FOR PE) CLINICAL INFORMATION: Shortness of breath, tachypnea and low oxygen saturation. Evaluate for pulmonary embolism. COMPARISON: Recent chest CT from 06/01/2017 TECHNIQUE: Prior to contrast administration, noncontrast localization images were obtained. Subsequently, multidetector volumetric imaging was performed from the thoracic inlet to below the diaphragms following the administration of 125 mL Optiray 350 intravenous contrast. No contrast reaction reported. Sagittal, coronal, and MIP oblique sagittal reformatted images were obtained on the CT workstation, uploaded to PACS, and reviewed. Total exam dose-length product 461 mGy-cm FINDINGS: QUALITY OF STUDY/CONTRAST BOLUS: Satisfactory. PULMONARY ARTERIES: Pulmonary arteries are normal in size. There are no embolic filling defects identified within main, lobar or segmental vessels. THORACIC AORTA: Mild atherosclerosis of the thoracic aorta without aneurysm or dissection. LUNGS AND PLEURA: Compared to 06/01/2017, interval worsening consolidation in the right upper lobe and lateral segment of the right middle lobe, and findings include a new region of consolidation in the anterior right apex. Persistent consolidation in superior segment of right lower lobe and worsening consolidation in anterior, posterior and medial segments of right lower lobe. Left lower lobe consolidation appears worse compared to 06/01/2017, as well. Small bilateral pleural effusions have increased in size. No pneumothorax. MEDIASTINUM: The heterogeneous large, multinodular thyroid gland exerts mass effect upon the trachea at the thoracic inlet, unchanged. Cardiomegaly and mild atherosclerotic calcification of coronary arteries. No evidence of septal bowing or right heart strain. The esophagus is grossly unremarkable. LYMPHATICS: No axillary or hilar lymphadenopathy. The mediastinal lymph nodes measure up to 0.9 cm short axis dimension. No enlarging lymph nodes compared to 06/01/2017. UPPER ABDOMEN: Gallbladder is surgically absent. Adrenal glands are normal. No reflux of contrast into the hepatic veins to suggest elevated right heart pressures. OSSEOUS STRUCTURES: No acute findings in the degenerated, hyperkyphotic spine. There is multilevel disc degeneration of the visualized cervical spine, as well, with grade 1 anterolisthesis at C5-C6 and C6-C7. Moderate osteoarthritis of right glenohumeral joint. IMPRESSION: 1. No evidence of pulmonary embolism. 2. Interval worsening of multilobar pneumonia and slight increased size of small pleural effusions compared to 06/01/2017 3. Large, heterogeneous, multinodular thyroid gland exerts mass effect upon the trachea at the thoracic inlet.
--- NOTE | 2017-06-04 13:38 | PN- Infect Dx ---
Subjective Subjective: Afebrile. She complains of diarrhea, though the nurse reports none. She was apparently in respiratory distress overnight, requiring increasing oxygen. Objective Last 24 Hrs of Vital Signs/I&O Vital Signs Date Time Temp Pulse Resp B/P B/P Pulse O2 O2 Flow FiO2 Mean Ox Delivery Rate 06/04 1200 Nasal 6.0L Cannula 06/04 1153 Nasal 6.0L Cannula 06/04 1149 Nasal 6.0L Cannula 06/04 1032 95 Nasal 6.0L Cannula 06/04 0850 93 Nasal 5.0L Cannula 06/04 0849 83 24 91 Nasal 4.0L Cannula 06/04 0635 97.5 84 22 122/68 96 Nasal Cannula 06/04 0215 90 Nasal 2.0L Cannula 06/04 0000 Nasal 2.0L Cannula 06/03 2231 97.9 80 20 136/74 95 Nasal 2.0L Cannula 06/03 2101 94 Nasal 3.0L Cannula 06/03 1600 Nasal 2.0L Cannula 06/03 1454 98.1 82 20 120/58 91 Nasal 2.0L Cannula 06/03 1342 95 Nasal 2.0L Cannula Intake & Output 06/04 1600 06/04 0800 06/04 0000 Intake Total 400 Output Total 400 Balance 0 Intake, Oral 400 Number 1 2 Bowel Movements Output, Urine 400 Physical Exam Other Physical Findings: She is awake and alert in no acute distress Lungs bilateral rhonchi Heart regular rhythm with no murmur Abdomen is obese, soft, nontender with positive bowel sounds Extremities 1+ edema both lower extremities Results Last 24 Hours of Lab Results: Laboratory Tests 06/04 06/04 06/04 0800 0500 0400 Blood Gas pH (7.35 - 7.45 PH) 7.46 H pCO2 (35 - 45 TORR) 40 pO2 (80 - 100 TORR) 73 L HCO3 (21 - 28 MEQ/L) 28 ABG O2 Sat (Measured) (>96.0 %) 94.0 L P-50 (Temp Corrected) N Carboxyhemoglobin (1.5 - 5.0 %) 0.3 L O2 Concentration % 5L O2 Delivery Method N/C Chemistry Sodium (137 - 145 mmol/L) 137 Potassium (3.5 - 5.1 mmol/L) 3.7 Chloride (98 - 107 mmol/L) 97 L Carbon Dioxide (22 - 30 mmol/L) 31 H Anion Gap (5 - 16) 9 BUN (7 - 17 mg/dL) 6 L Creatinine (0.5 - 1.0 mg/dL) 0.4 L Estimated GFR (>60 ml/min) > 60 BUN/Creatinine Ratio (7 - 25 %) 15.0 Troponin I (< 0.11 ng/ml) < 0.01 < 0.01 [id number] Pept (<125 pg/mL) 1620 H Hematology CBC w Diff NO MAN DIFF REQ WBC (4.8 - 10.8 /CUMM) 4.6 L RBC (4.20 - 5.40 /CUMM) 3.03 L Hgb (12.0 - 16.0 G/DL) 8.3 L Hct (37 - 47 %) 24.8 L MCV (81.0 - 99.0 FL) 81.8 MCH (27.0 - 31.0 PG) 27.5 RDW (11.5 - 14.5 %) 21.9 H Plt Count (130 - 400 /CUMM) 166 MPV (7.4 - 10.4 FL) 7.3 L Gran % (42.2 - 75.2 %) 79.7 H Lymphocytes % (20.5 - 51.1 %) 10.2 L Monocytes % (1.7 - 9.3 %) 8.7 Eosinophils % (0 - 5 %) 1.3 Basophils % (0.0 - 2.0 %) 0.1 Absolute Granulocytes (1.4 - 6.5 /CUMM) 3.7 Absolute Lymphocytes (1.2 - 3.4 /CUMM) 0.5 L Absolute Monocytes (0.10 - 0.60 /CUMM) 0.4 Absolute Eosinophils (0.0 - 0.7 /CUMM) 0.1 Absolute Basophils (0.0 - 0.2 /CUMM) 0 PUBS MCHC (33.0 - 37.0 G/DL) 33.6 Miscellaneous Phlebotomy Draw Site LEFT RADIAL 06/03 1420 Urines Urine Color (YEL,AMB,STR) YEL Urine Clarity (CLEAR) CLEAR Urine pH (5.0 - 8.0) 6.0 Ur Specific [place] (1.001 - 1.035) 1.025 Urine Protein (NEG,<30 MG/DL) NEG Urine Ketones (NEG) NEG Urine Nitrite (NEG) NEG Urine Bilirubin (NEG) NEG Urine Urobilinogen (0.1 - 1.0 EU/dl) 0.2 Ur Leukocyte Esterase (NEG) NEG Ur Microscopic SEDIMENT EXAMINED Urine RBC (0 - 5 /HPF) 1-3 Urine WBC (0 - 2 /HPF) RARE Ur Epithelial Cells (NONE,FEW) RARE Urine Bacteria (NEG/NONE) RARE H Urine Mucus (FEW,NONE) FEW Urine Hemoglobin (NEG) MOD H Urine Glucose (N MG/DL) 100 H Last 24 Hours of Neo Results: Urine culture June 03 negative Recent Imaging Studies: CTA of the chest June 04 negative for pulmonary embolism; interval worsening multilobar consolidation, with an increase in the small bilateral pleural effusions Assessment/Plan Impression: Deteriorating respiratory status with worsening of her multilobar consolidation on the recent CT scan, suggesting a lack of response to Unasyn, now Day 3 of treatment for pneumonia, with her temperatures and white blood cell count remaining normal. Unfortunately no sputum has been obtained; therefore her treatment will need to remain empiric. Her I's and O's are difficult to assess as she is incontinent, but her CT scan is not suggestive of fluid overload. Suggestion: 1. Would attempt to obtain a sputum culture, by induction if necessary 2. Repeat urine for Legionella antigen 3. Strict I's and O's 4. Discontinue Unasyn 5. Begin Vancomycin 1 g IV every 24 hours and Ciprofloxacin 500 mg po every 12 hours pending above
[2017-06-04 14:08] VITALS: BP 130/72
[2017-06-04 22:23] VITALS: BP 128/68
--- NOTE | 2017-06-05 05:51 | PN- Housestaff ---
Phong GARCIA,Inna 06/05/17 0550: Subjective Follow-up For: 1.Confusion, altered mentation 2. health care associated pneumonia 5. Severe anemai Subjective: PT is seen and examined at bedside, she continues to c/o of sortness of breath, pulse ox is 89 on 6 L NC, she was also noticed to be increasingly confused and lethargic this morning, still endorses cough and expectoration. SHe denies fever , chillis , nausea, vomiting and diarrhea. Review of Systems Constitutional: Reports: malaise, weakness. Denies: chills, fever. EENTM: Denies: no symptoms. Cardiovascular: Denies: no symptoms. Respiratory: Reports: cough, short of breath, sputum production. Gastrointestinal: Denies: no symptoms. Genitourinary: Denies: no symptoms. Musculoskeletal: Denies: no symptoms. Skin: Denies: no symptoms. Objective Last 24 Hrs of Vital Signs/I&O Vital Signs Date Time Temp Pulse Resp B/P B/P Pulse O2 O2 Flow FiO2 Mean Ox Delivery Rate 06/05 1430 98.0 88 24 102/52 92 Nasal 6.0L Cannula 06/05 1207 92 Nasal 6.0L Cannula 06/05 1000 98.2 78 20 84/56 90 Nasal 5.0L Cannula 06/05 0834 94 Nasal 5.0L Cannula 06/05 0800 90 Nasal 5.0L Cannula 06/05 0716 98.1 88 26 125/55 84 06/05 0235 Nasal 5.0L Cannula 06/05 0200 94 Nasal 5.0L Cannula 06/05 0000 94 Nasal 5.0L Cannula 06/04 2223 98.3 73 19 128/68 94 Nasal Cannula 06/04 2000 94 Nasal 5.0L Cannula Intake & Output 06/05 1600 06/05 0800 06/05 0000 Intake Total 760 200 Output Total 550 500 350 Balance 210 -500 -150 Intake, IV 280 Intake, Oral 480 200 Output, Urine 550 500 350 Physical Exam General Appearance: Alert, Cooperative, lethargic and sleepy Skin: No Rashes, No Breakdown, No Significant Lesion HEENT: Atraumatic, PERRLA, EOMI, Mucous Membr. moist/pink Neck: Supple, No JVD Cardiovascular: Normal S1, Normal S2, No Murmurs Lungs: decreased air entery, widespread rales and mild wheezes Abdomen: Normal Bowel Sounds, Soft, No Tenderness Neurological: Normal Speech, Strength at 5/5 X4 Ext Extremities: No Clubbing, No Cyanosis, No Edema Assessment/Plan Assessment: 71-year-old female with past medical history of hypothermia, hyponatremia, vertigo, urinary incontinence, mild to moderate , CVA, CHF, DJD, bipolar disorder, schizoaffective disorder, chronic pedal edema, breast cancer s/p lumpectomy/radiation was brought in from short-term rehabilitation with a temperature recording of 100.3 and altered mental status strated yesterdy. Her H&H has dropped this morning to 7.4/22.3 Health care associated pneumonia worsening multilobar pneumonia, slight increase in the size of pleural effusion. Patient met the criteria of healthcare associated pneumonia since she was living in [facility] Strep pneumonia and the legionella were negative Continue vancomycin-cipro- day 2 CXR today showed features suggestive of central hilar congestion suggestive of CHF but other causes couldn't be excluded, in addition increased right pleural effusion which was not seen on 05/31/17 will need further assessment of thyroid enlargment which might have a role on upper airway compression and worsening oxygenation Continue Guafenisin TRC Strict aspiration precaution Chronic hyponatremia Improved Patient is on fluid restriction of 1000 cc for chronic hyponatremia Severe anemia most likely chronic anemai H & H 8.3/24.8 stabel , MCV was normal, a low serum iron and TIBC, most likely her anemia is caused by mixture of iron deficiency and chronic illness Continue ferrous sulfate tablets Guaiac was negative Blood type and crossmatch, will consider PRBC transfusion if her hemoglobin dropped below 7 CT abdomen and pelvis with IV contrast ruled out with GI bleeding ? UTI this morning the pt c/o of difficulty urinating and burning she is incontinent bladder scan only showed residual of 35 cc urinanalysis and urine culture was normal If she continues of difficulty to pass urine, will need cath. Patient is full code DVT prophylaxis with SC heparin Chopped diet with thin liquids Problem List: 1. Pneumonia 2. Weakness Pain Ratin Pain Location: n/a Pain Goal: Remain pain free Pain Plan: per pathway Tomorrow's Labs & Rationales: cbc bep DVT/Prophylaxis: mechanical, pharmacological Michael Mata MD 06/05/172118: Attending MD Review Statement Attending Statement Attending MD Statement: examined this patient, discuss w/resident/PA/VIDEO NETWORK ENGINEER, agreed w/resident/PA/VIDEO NETWORK ENGINEER, discussed with family, reviewed EMR data (avail), discussed with nursing, discussed with case mgmt, reviewed images, amended to note Attending Assessment/Plan: The patient was seen and discussed with house staff, nursing, family (daughter) and pulmonary (Dr. Fritz). BP remains on lower side with increased hypoxemia and respiratory rate. CXR showing ? slightly increased edema (?cardiac vs pulmonary). Discussed options with Dr. Fritz and elected IV Medrol 40 mg bid trial if there is an inflammatory component to her worsening. Antibiotic coverage was already broadened to cover in hospital acquired pneumonia. May need further aspiration workup. Her normal Lasix dose is 40 mg orally daily, however being held due to low BP. Appetite is poor, however daughter states she is taking nutritional supplements. If decompensates may need ICU care. Will follow closely
[2017-06-05 07:16] VITALS: BP 125/55
[2017-06-05 10:00] VITALS: BP 84/56
[2017-06-05 10:05] LABS: ABSOLUTE BASOPHIL COUNT 0 /CUMM (0.0-0.2); ABSOLUTE EOSINOPHIL COUNT 0 /CUMM (0.0-0.7); ABSOLUTE GRANULOCYTE CT 4.2 /CUMM (1.4-6.5); ABSOLUTE LYMPH COUNT 0.6 /CUMM (1.2-3.4); ABSOLUTE MONOCYTE COUNT 0.3 /CUMM (0.10-0.60); BASOPHIL % 0 % (0.0-2.0); EOSINOPHIL % 0.6 % (0-5); GRANULOCYTE % 80.8 % (42.2-75.2); HEMATOCRIT 22.9 % (37-47); MEAN CORPUSCULAR HGB 26.8 PG (27.0-31.0); MEAN CORPUSCULAR HGB CONC 32.9 G/DL (33.0-37.0); MEAN CORPUSCULAR VOLUME 81.4 FL (81.0-99.0); MEAN PLATELET VOLUME 7.3 FL (7.4-10.4); PLATELET COUNT 152 /CUMM (130-400); RBC DISTRIBUTION WIDTH 21.8 % (11.5-14.5); RED BLOOD CELL CT 2.81 /CUMM (4.20-5.40); WHITE BLOOD CELL COUNT 5.2 /CUMM (4.8-10.8)
--- NOTE | 2017-06-05 11:01 | RADIOLOGY REPORT ---
EXAMINATION: XR PORTABLE CHEST CLINICAL INFORMATION: SS fluid overload/effusion. Shortness of breath COMPARISON: CT scan of the previous day as well as chest x-rays of May 31, 2017 and May 19, 2017 TECHNIQUE: Portable AP view of the chest was obtained. FINDINGS: There is bibasilar airspace disease seen with opacification of the right lung greater than left. The opacification right lung appears be related to pleural effusion and airspace disease with opacification of the lower half of the right hemithorax. No pneumothorax identified. The cardiopericardial silhouette is enlarged. There is central peribronchial cuffing and hazy density consistent with pulmonary edema of cardiogenic or noncardiogenic etiology. Degenerative change of the right shoulder is seen IMPRESSION: Bilateral airspace disease as well as what appears be a combination of parenchymal disease and right-sided effusion not definitely seen on prior study of May 31, [address] scan of June 04, 2017. With the perihilar haziness and peribronchial cuffing present findings are suggestive of pulmonary edema of cardiogenic or noncardiogenic etiology.
--- NOTE | 2017-06-05 13:20 | PN- Pulmonary ---
Subjective HPI/Critical Care Issues: Patient seen and examined this morning. She is feeling better however still dyspneic and having a difficult time with her secretions. Objective Current Medications: Current Medications Sig/Courtney Start time Last Medication Dose Route Stop Time Status Admin Acetaminophen 650 MG Q8P PRN 05/31 2215 AC 06/03 PO 1413 Albuterol Sulfate 3 ML EVERY 4 HRS/AWAKE 06/02 2000 AC 06/05 INH 1205 Ampicillin Sodium/ 1,500 MG Q6 06/01 1800 DC 06/04 Sulbactam Sodium IV 1255 Sodium Chloride 100 ML Aripiprazole 5 MG DAILY 06/01 1000 AC 06/05 PO 1058 Aripiprazole 2 MG DAILY 06/01 1000 AC 06/05 PO 1058 Bisacodyl 5 MG DAILY PRN 06/03 1245 AC PO Ciprofloxacin 500 MG BID 06/04 1400 AC 06/05 PO 06/08 1359 1059 Divalproex Sodium 250 MG QAM 06/01 1000 AC 06/05 PO 1059 Divalproex Sodium 500 MG AT BEDTIME 05/31 2230 AC 06/04 PO 2203 Enoxaparin Sodium 40 MG DAILY 06/05 1000 AC 06/05 SC 1059 Ferrous Sulfate 325 MG BID 06/01 2200 AC 06/05 PO 1059 Furosemide 40 MG ONCE ONE 06/05 0945 CAN IV 06/05 0946 Furosemide 20 MG ONCE ONE 06/05 0930 CAN IV 06/05 0931 Furosemide 20 MG ONCE ONE 06/04 1700 DC 06/04 IV 06/04 1701 1815 Guaifenesin/ 5 ML Q6P PRN 05/31 2230 AC 06/04 Dextromethorphan PO 0417 Heparin Sodium 5,000 UNIT .STK-MED ONE 06/04 1547 DC (Porcine) IV 06/04 1548 Lorazepam 0.5 MG ONE ONE 06/04 1530 DC 06/04 PO 06/04 1531 1728 Melatonin 3 MG AT BEDTIME PRN 06/02 0300 AC PO Montelukast Sodium 10 MG DAILY 06/01 1000 AC 06/05 PO 1059 Polyethylene Glycol 17 GM DAILY PRN 06/03 1245 AC PO Sodium Chloride 1 SPRAY 4 TIMES/DAY PRN 05/31 2230 AC 06/04 RADHAMES 0254 Tramadol HCl 50 MG Q8P PRN 05/31 2215 AC PO Vancomycin HCl 1,000 MG DAILY 06/04 1400 AC 06/05 Sodium Chloride 250 ML IV 1058 Vital Signs & I&O Last 24 Hrs of Vitals and I&O: Vital Signs Date Time Temp Pulse Resp B/P B/P Pulse O2 O2 Flow FiO2 Mean Ox Delivery Rate 06/05 1207 92 Nasal 6.0L Cannula 06/05 1000 98.2 78 20 84/56 90 Nasal 5.0L Cannula 06/05 0834 94 Nasal 5.0L Cannula 06/05 0716 98.1 88 26 125/55 84 06/05 0235 Nasal 5.0L Cannula 06/05 0200 94 Nasal 5.0L Cannula 06/05 0000 94 Nasal 5.0L Cannula 06/04 2223 98.3 73 19 128/68 94 Nasal Cannula 06/04 2000 94 Nasal 5.0L Cannula 06/04 1650 90 Nasal 7.0L Cannula 06/04 1600 89 Nasal 7.0L Cannula 06/04 1408 98.1 84 18 130/72 92 Nasal 2.0L Cannula 06/04 1350 92 Nasal 6.0L Cannula Intake & Output 06/05 1600 06/05 0800 06/05 0000 Intake Total 200 Output Total 500 350 Balance -500 -150 Intake, Oral 200 Output, Urine 500 350 Exam Other Physical Findings: Generally - Awake, alert mild distress Head and neck - ncat Cardiovascular - S1, S2 Lungs - rare scattered rhonchi Abdomen - Bowel sounds positive Extremities - bilateral edema Results Last 24 Hrs of Lab Results: Laboratory Tests 06/05/17 1110: Anion Gap 3 L, Phosphorus 3.5, Magnesium 1.6, Troponin I < 0.01 06/05/17 0956: CBC w Diff NO MAN DIFF REQ, RBC 2.81 L, MCV 81.4, MCH 26.8 L, RDW 21.8 H, MPV 7.3 L, Gran % 80.8 H, Lymphocytes % 12.0 L, Monocytes % 6.6, Eosinophils % 0.6, Basophils % 0, Absolute Granulocytes 4.2, Absolute Lymphocytes 0.6 L, Absolute Monocytes 0.3, Absolute Eosinophils 0, Absolute Basophils 0, PUBS MCHC 32.9 L 06/05/17 0600: Sodium Cancelled, Potassium Cancelled, Chloride Cancelled, Carbon Dioxide Cancelled, Anion Gap Cancelled, BUN Cancelled, Creatinine Cancelled, BUN/ Creatinine Ratio Cancelled Impression/Plan Impression/Plan Impression/Plan: Impression 71 year old woman * multifocal pna, likely aspiration, however she has findings of a large heterogeneous, multinodular thyroid gland exerting a mass effect upon the trachea and the thoracic inlet Plan -cont abx per ID -ENT evaluation -goals of care discussion -mucomyst will not be used given sulfa allergy -will avoid steroids for now as her symptoms maybe due to an anatomical issue, she needs an ENT evaluation to determine etiology of mass DVT prophylaxis at all times
[2017-06-05 14:30] VITALS: BP 102/52
[2017-06-05 23:27] VITALS: BP 104/60
--- NOTE | 2017-06-06 00:01 | RADIOLOGY REPORT ---
EXAMINATION: XR PORTABLE CHEST CLINICAL INFORMATION: Shortness of breath. COMPARISON: 06/05/2017 TECHNIQUE: Portable frontal view of the chest was obtained. FINDINGS: Lung volumes are low. Evaluation at the right lung apex is limited due to patient position with overlying facial soft tissue. There is persistent small to moderate right-sided pleural effusion with associated airspace opacity. Mildly improved aeration at the left lung base. Bronchial wall thickening again noted. No gross evidence of pneumothorax. The cardiomediastinal silhouette is unchanged. IMPRESSION: Persistent small to moderate right pleural effusion with associated airspace opacity. Bronchial wall thickening again noted which could be associated with mild fluid overload or a small airways process. Somewhat improved aeration at the left lung base.
--- NOTE | 2017-06-06 04:37 | Event Note ---
Event Note Event Note: Patient had a drop in O2 sats requiring increased supplemental oxygen of 6 L. Chest x-ray was ordered showing Persistent small to moderate right pleural effusion with associated airspace opacity. Patient started on IV methylprednisolone today, we will continue. We will continue IV antibiotics and supplemental oxygen as needed.
[2017-06-06 07:19] VITALS: BP 118/58
--- NOTE | 2017-06-06 09:44 | PN- Infect Dx ---
Subjective Subjective: Afebrile on steroids. She complains of abdominal pain and shortness of breath. Objective Last 24 Hrs of Vital Signs/I&O Vital Signs Date Time Temp Pulse Resp B/P B/P Pulse O2 O2 Flow FiO2 Mean Ox Delivery Rate 06/06 08 93 Nasal 6.0L Cannula 06/06 0719 98.5 90 22 118/58 91 06/06 0000 93 Nasal 6.0L Cannula 06/05 2327 98.9 93 20 104/60 94 Nasal 5.0L Cannula 06/05 2014 92 Nasal 6.0L Cannula 06/05 1600 Nasal 6.0L Cannula 06/05 1430 98.0 88 24 102/52 92 Nasal 6.0L Cannula 06/05 1207 92 Nasal 6.0L Cannula 06/05 1000 98.2 78 20 84/56 90 Nasal 5.0L Cannula Intake & Output 06/06 1600 06/06 0800 06/06 0000 Intake Total 200 480 Output Total 1000 600 Balance -800 -120 Intake, IV Intake, Oral 200 480 Number 1 Bowel Movements Output, Urine 1000 600 Physical Exam Other Physical Findings: She appears mildly uncomfortable but in no acute distress Lungs diffuse crackles Heart regular rhythm with no murmur Abdomen is obese, soft, possibly tender diffusely, with no guarding or rebound, positive bowel sounds Extremities 1+ edema all extremities Cheek catheter is in place Results Last 24 Hours of Lab Results: Laboratory Tests 06/05 06/05 1110 0956 Chemistry Sodium (137 - 145 mmol/L) 135 L Potassium (3.5 - 5.1 mmol/L) 3.7 Chloride (98 - 107 mmol/L) 98 Carbon Dioxide (22 - 30 mmol/L) 33 H Anion Gap (5 - 16) 3 L Phosphorus (2.5 - 4.5 mg/dL) 3.5 Magnesium (1.6 - 2.3 mg/dL) 1.6 Troponin I (< 0.11 ng/ml) < 0.01 Hematology CBC w Diff NO MAN DIFF REQ WBC (4.8 - 10.8 /CUMM) 5.2 RBC (4.20 - 5.40 /CUMM) 2.81 L Hgb (12.0 - 16.0 G/DL) 7.5 L Hct (37 - 47 %) 22.9 L MCV (81.0 - 99.0 FL) 81.4 MCH (27.0 - 31.0 PG) 26.8 L RDW (11.5 - 14.5 %) 21.8 H Plt Count (130 - 400 /CUMM) 152 MPV (7.4 - 10.4 FL) 7.3 L Gran % (42.2 - 75.2 %) 80.8 H Lymphocytes % (20.5 - 51.1 %) 12.0 L Monocytes % (1.7 - 9.3 %) 6.6 Eosinophils % (0 - 5 %) 0.6 Basophils % (0.0 - 2.0 %) 0 Absolute Granulocytes (1.4 - 6.5 /CUMM) 4.2 Absolute Lymphocytes (1.2 - 3.4 /CUMM) 0.6 L Absolute Monocytes (0.10 - 0.60 /CUMM) 0.3 Absolute Eosinophils (0.0 - 0.7 /CUMM) 0 Absolute Basophils (0.0 - 0.2 /CUMM) 0 PUBS MCHC (33.0 - 37.0 G/DL) 32.9 L Last 24 Hours of Neo Results: Urine Legionella antigen June 04 negative Urine culture June 03 negative Recent Imaging Studies: Chest x-ray June 05 reveals a persistent small to moderate right pleural effusion with associated air space opacity Assessment/Plan Impression: Respiratory distress, presumably secondary to pneumonia, with multilobar consolidation on the recent CT scan, with a possible element of fluid overload, with Lasix unable to be given secondary to her hypotension, and with concern noted regarding the large multinodular thyroid gland exerting a mass effect upon the trachea, for which she was placed on steroids overnight. She remains afebrile with a normal white blood cell count now on Vancomycin and Ciprofloxacin Day 2 after an apparent lack of response to 3 days of Unasyn for possible aspiration pneumonia. Suggestion: 1. Obtain a nares screen for MRSA 2. Continue Vancomycin and Ciprofloxacin
--- NOTE | 2017-06-06 10:54 | PN- Housestaff ---
[facility] 06/06/17 1052: Subjective Follow-up For: AMS Community acquired pneumonia Anemia Subjective: No overnight events. Patient remained afebrile overnight. Seen and examined this morning. She denied any chest pain, nausea, vomiting, chills, fever, abdominal pain and dysuria. Patient having exertional dyspnea. She also reported having dry cough. She is using 6 L of oxygen maintaining saturation 93 % Review of Systems Constitutional: Reports: weakness. EENTM: Reports: no symptoms. Cardiovascular: Reports: no symptoms. Respiratory: Reports: cough, short of breath. Gastrointestinal: Reports: no symptoms. Genitourinary: Reports: no symptoms. Musculoskeletal: Reports: no symptoms. Neurological/Psychological: Reports: no symptoms. Objective Last 24 Hrs of Vital Signs/I&O Vital Signs Date Time Temp Pulse Resp B/P B/P Pulse O2 O2 Flow FiO2 Mean Ox Delivery Rate 06/06 804 93 Nasal 6.0L Cannula 06/06 07 98.5 90 22 118/58 91 06/06 0000 93 Nasal 6.0L Cannula 06/05 2327 98.9 93 20 104/60 94 Nasal 5.0L Cannula 06/05 2015 92 Nasal 6.0L Cannula 06/05 1600 Nasal 6.0L Cannula 06/05 1430 98.0 88 24 102/52 92 Nasal 6.0L Cannula 06/05 1207 92 Nasal 6.0L Cannula Intake & Output 06/06 1600 06/06 0800 06/06 0000 Intake Total 200 480 Output Total 1000 600 Balance -800 -120 Intake, IV Intake, Oral 200 480 Number 1 Bowel Movements Output, Urine 1000 600 Physical Exam General Appearance: Alert, Cooperative Skin Temp/Moisture Exam: Warm/Dry HEENT: Atraumatic, PERRLA, EOMI Neck: Supple Cardiovascular: Normal S1, Normal S2 Lungs: b/l crackles , more on the right side of chest Abdomen: Soft, No Tenderness Neurological: Normal Speech, Normal Tone Extremities: b/l edema Assessment/Plan Assessment: 71-year-old female with past medical history of hypothermia, hyponatremia, vertigo, urinary incontinence, mild to moderate , CVA, CHF, DJD, bipolar disorder, schizoaffective disorder, chronic pedal edema, breast cancer s/p lumpectomy/radiation was brought in from short-term rehabilitation with a temperature recording of 100.3 and altered mental status strated yesterdy. Her H&H has dropped this morning to 7.4/22.3 Health care associated pneumonia: -Patient still has right-sided pleural effusion from small to moderate in amount -Patient met the criteria of healthcare associated pneumonia since she was living in [facility] -Strep pneumonia and the legionella were negative -We will continue vancomycin and ciprofloxacin -CXR yesterday showed features suggestive of central hilar congestion suggestive of CHF but other causes couldn't be excluded, in addition increased right pleural effusion which was not seen on 05/31/17 -will need further assessment of thyroid enlargment which might have a role on upper airway compression and worsening oxygenation -Patient could have aspiration pneumonia as she has crackle son right side of chest and risk for aspiration. -Continue Guafenisin -TRC -Strict aspiration precaution Chronic hyponatremia Improved Patient is on fluid restriction of 1000 cc for chronic hyponatremia Severe anemia -most likely chronic anemai H & H 8.3/24.8 -MCV was normal, a low serum iron and TIBC, most likely her anemia is caused by mixture of iron -deficiency and chronic illness -Continue ferrous sulfate tablets -Guaiac was negative -Blood type and crossmatch, -will consider PRBC transfusion if her hemoglobin dropped below 7 -CT abdomen and pelvis with IV contrast ruled out with GI bleeding ? UTI -she is incontinent and having catheter. -bladder scan only showed residual of 35 cc -urinanalysis and urine culture was normal -If she continues of difficulty to pass urine, will need cath. Patient is full code DVT prophylaxis with SC heparin Chopped diet with thin liquids Problem List: 1. Pneumonia 2. Weakness Pain Ratin Pain Location: none Pain Goal: Remain pain free Pain Plan: tylenol for mild pain Tomorrow's Labs & Rationales: cbc/bep Michael Mata MD 06/06/171948: Attending MD Review Statement Attending Statement Attending MD Statement: examined this patient, discuss w/resident/PA/INSPECTOR TOYS, agreed w/resident/PA/INSPECTOR TOYS, discussed with family, reviewed EMR data (avail), discussed with nursing, amended to note Attending Assessment/Plan: The patient was seen and discussed with house staff, nursing, and family ( daughter). She appears to have improved with empiric trial of Solumedrol. Pulmonary follow-up by Dr. Fritz appreciated. Thyroid mass has been evaluated multiple times in past (including negative biopsy per daughter). Await input from Dr. Galvan tomorrow.
--- NOTE | 2017-06-06 12:00 | PN- Pulmonary ---
Subjective HPI/Critical Care Issues: Patient seen and examined. She is complaining of shortness of breath again today. Hemodynamically she is stable, her saturations are stable as well. Objective Current Medications: Current Medications Sig/Courtney Start time Last Medication Dose Route Stop Time Status Admin Acetaminophen 650 MG Q8P PRN 05/31 2215 AC 06/06 PO 1037 Albuterol Sulfate 3 ML EVERY 4 HRS/AWAKE 06/02 1999 AC 06/06 INH 1122 Aripiprazole 5 MG DAILY 06/01 1000 AC 06/06 PO 1037 Aripiprazole 2 MG DAILY 06/01 1000 AC 06/06 PO 1037 Bisacodyl 5 MG DAILY PRN 06/03 1245 AC PO Ciprofloxacin 500 MG BID 06/04 1400 AC 06/06 PO 06/08 1359 1038 Divalproex Sodium 250 MG QAM 06/01 1000 AC 06/06 PO 1038 Divalproex Sodium 500 MG AT BEDTIME 05/31 2230 AC 06/05 PO 2207 Enoxaparin Sodium 40 MG DAILY 06/05 1000 AC 06/06 SC 1038 Ferrous Sulfate 325 MG BID 06/01 2200 AC 06/06 PO 1038 Guaifenesin/ 5 ML Q6P PRN 05/31 2230 AC 06/04 Dextromethorphan PO 0417 Melatonin 3 MG AT BEDTIME PRN 06/02 0300 AC PO Methylprednisolone 40 MG Q12 06/05 1915 AC 06/06 IV 1038 Methylprednisolone 4 MG BID 06/05 1530 DC 06/05 PO 1652 Montelukast Sodium 10 MG DAILY 06/01 1000 AC 06/06 PO 1038 Polyethylene Glycol 17 GM DAILY PRN 06/03 1245 AC PO Sodium Chloride 1 SPRAY 4 TIMES/DAY PRN 05/31 2230 AC 06/04 RADHAMES 0254 Tramadol HCl 50 MG Q8P PRN 05/31 2215 AC PO Vancomycin HCl 1,000 MG DAILY 06/04 1400 AC 06/06 Sodium Chloride 250 ML IV 1037 Vital Signs & I&O Last 24 Hrs of Vitals and I&O: Vital Signs Date Time Temp Pulse Resp B/P B/P Pulse O2 O2 Flow FiO2 Mean Ox Delivery Rate 06/06 804 93 Nasal 6.0L Cannula 06/06 08 91 Nasal 6.0L Cannula 06/06 718 98.5 90 22 118/58 91 06/06 0000 93 Nasal 6.0L Cannula 06/05 2326 98.9 93 20 104/60 94 Nasal 5.0L Cannula 06/05 2014 92 Nasal 6.0L Cannula 06/05 1600 Nasal 6.0L Cannula 06/05 1430 98.0 88 24 102/52 92 Nasal 6.0L Cannula 06/05 1207 92 Nasal 6.0L Cannula Intake & Output 06/06 1600 06/06 0800 06/06 0000 Intake Total 200 480 Output Total 1000 600 Balance -800 -120 Intake, IV Intake, Oral 200 480 Number 1 Bowel Movements Output, Urine 1000 600 Exam Other Physical Findings: Generally - Awake, alert mild distress Head and neck - ncat Cardiovascular - S1, S2 Lungs - rare scattered rhonchi Abdomen - Bowel sounds positive Extremities - bilateral edema Impression/Plan Impression/Plan Impression/Plan: Impression 71 year old woman * multifocal pna, likely aspiration, however she has findings of a large heterogeneous, multinodular thyroid gland exerting a mass effect upon the trachea and the thoracic inlet Plan -cont abx per ID, mrsa screen -goals of care discussion, her ENT issue (thyroid) maybe contributing -mucomyst will not be used given sulfa allergy -cont steroids for symptom relief for now DVT prophylaxis at all times
[2017-06-06 14:23] LABS: ABSOLUTE BASOPHIL COUNT 0 /CUMM (0.0-0.2); ABSOLUTE EOSINOPHIL COUNT 0 /CUMM (0.0-0.7); ABSOLUTE LYMPH COUNT 0.6 /CUMM (1.2-3.4); ABSOLUTE MONOCYTE COUNT 0.3 /CUMM (0.10-0.60); BASOPHIL % 0.1 % (0.0-2.0); EOSINOPHIL % 0.1 % (0-5); HEMATOCRIT 25.1 % (37-47); MEAN CORPUSCULAR HGB 26.4 PG (27.0-31.0); MEAN CORPUSCULAR HGB CONC 32.3 G/DL (33.0-37.0); MEAN CORPUSCULAR VOLUME 81.5 FL (81.0-99.0); MEAN PLATELET VOLUME 7.1 FL (7.4-10.4); RED BLOOD CELL CT 3.08 /CUMM (4.20-5.40); WHITE BLOOD CELL COUNT 4.9 /CUMM (4.8-10.8)
[2017-06-06 14:25] LABS: PLATELET COUNT 232 /CUMM (130-400)
[2017-06-06 15:45] VITALS: BP 124/66
[2017-06-06 23:17] VITALS: BP 122/60
[2017-06-07 07:23] VITALS: BP 120/72
--- NOTE | 2017-06-07 08:17 | PN- Housestaff ---
Phong GARCIA,Inna 06/07/17 0817: Subjective Follow-up For: AMS Community acquired pneumonia Anemia Subjective: Patient is seen and examined at bedside, she continues to require high oxygen this morning she was on non rebreathable mask after the patient was saturating at 87 hours on 7 L nasal cannula. Still endorses cough, shortness of breath Denies any chest pain, nausea, vomiting or diarrhea Review of Systems Constitutional: Denies: no symptoms. Cardiovascular: Reports: edema. Respiratory: Reports: cough, short of breath, sputum production. Gastrointestinal: Denies: no symptoms. Genitourinary: Denies: no symptoms. Musculoskeletal: Denies: no symptoms. Skin: Denies: no symptoms. Objective Last 24 Hrs of Vital Signs/I&O Vital Signs Date Time Temp Pulse Resp B/P B/P Pulse O2 O2 Flow FiO2 Mean Ox Delivery Rate 06/07 1423 Nasal 6.0L Cannula 06/07 1306 Nasal 6.0L Cannula 06/07 0825 90 Nasal 6.0L Cannula 06/07 08 91 Nasal 55% Cannula 06/07 0723 98.3 84 20 120/72 90 06/07 0039 90 Nasal 6.0L Cannula 06/07 0000 94 Nasal 6.0L Cannula 06/06 2317 98.7 91 20 122/60 90 Nasal 6.0L Cannula 06/06 1609 92 Nasal 6.0L Cannula 06/06 1600 Nasal 6.0L Cannula 06/06 1545 98.4 82 20 124/66 90 Nasal Cannula Intake & Output 06/07 1600 06/07 0800 06/07 0000 Intake Total 575 240 Output Total 1400 850 800 Balance -825 -850 -560 Intake, IV 250 Intake, Oral 325 240 Number 1 Bowel Movements Output, Urine 1400 850 800 Physical Exam General Appearance: Alert, Oriented X3, Cooperative, No Acute Distress, lethargic Skin: No Rashes, No Breakdown, No Significant Lesion HEENT: Atraumatic, PERRLA, EOMI, Mucous Membr. moist/pink Neck: Supple, No JVD Cardiovascular: Normal S1, Normal S2, No Murmurs Lungs: bilateral widespread rales with and crepitation Abdomen: Normal Bowel Sounds, Soft, No Tenderness Neurological: Normal Speech Extremities: No Clubbing, No Cyanosis, No Edema Assessment/Plan Assessment: 71-year-old female with past medical history of hypothermia, hyponatremia, vertigo, urinary incontinence, mild to moderate , CVA, CHF, DJD, bipolar disorder, schizoaffective disorder, chronic pedal edema, breast cancer s/p lumpectomy/radiation was brought in from short-term rehabilitation with a temperature recording of 100.3 and altered mental status strated yesterdy. Her H&H has dropped this morning to 7.4/22.3 Health care associated pneumonia: -Patient still has right-sided pleural effusion from small to moderate in amount -Patient met the criteria of healthcare associated pneumonia since she was living in [facility] [place] -Strep pneumonia and the legionella were negative -Recent chest x-ray showed features suggestive of central hilar congestion suggestive of CHF but other causes couldn't be excluded, in addition increased right pleural effusion which was not seen on 05/31/17 -will need further assessment of thyroid enlargment which might have a role on upper airway compression and worsening oxygenation -Patient could have aspiration pneumonia as she has crackle on right side of chest and risk for aspiration. -1 dose Lasix 20 mg IV -Cardiology consult was placed, will follow up on the recommendation regarding possible acute exacerbation of CHF as a possible cause of her hypoxemia -Continue Guafenisin Continue IV Solu-Medrol 40 mg every 12 Continue IV vancomycin 1 g daily and Cipro 500 mg twice a day (day -TRC -Strict aspiration precaution Chronic hyponatremia over Corrected today sodium is 148 Close monitoring of BEP Patient is on fluid restriction of 1000 cc for chronic hyponatremia Severe anemia -most likely chronic anemai H & H 8.3/24.8 -MCV was normal, a low serum iron and TIBC, most likely her anemia is caused by mixture of iron -deficiency and chronic illness -Continue ferrous sulfate tablets -Guaiac was negative -Blood type and crossmatch, -will consider PRBC transfusion if her hemoglobin dropped below 7 -CT abdomen and pelvis with IV contrast ruled out with GI bleeding ? UTI Has been ruled out by normal urinalysis and urine culture -Continue Cheek catheter for adequate I's and O's and Patient is full code DVT prophylaxis with SC heparin Chopped diet with thin liquids Problem List: 1. Hyponatremia syndrome 2. Pneumonia Pain Ratin Pain Location: n/a Pain Goal: Remain pain free Pain Plan: per pathway Tomorrow's Labs & Rationales: cbc bep DVT/Prophylaxis: mechanical, pharmacological Gris Hernandez MD 06/07/17 1610: Attending MD Review Statement Attending Statement Attending MD Statement: examined this patient, discuss w/resident/PA/UNIT DIRECTOR, agreed w/resident/PA/UNIT DIRECTOR, reviewed EMR data (avail) Attending Assessment/Plan: Continue current management, follow cultures,continue Lasix, pulmonary and cardiology consults
--- NOTE | 2017-06-07 09:20 | PN- Pulmonary ---
Subjective HPI/Critical Care Issues: No new overnight events reported. Objective Current Medications: Current Medications Sig/Courtney Start time Last Medication Dose Route Stop Time Status Admin Acetaminophen 650 MG .STK-MED ONE 06/06 916 DC PO 06/06 09 Acetaminophen 650 MG Q8P PRN 05/31 2215 AC 06/06 PO 1037 Albuterol Sulfate 3 ML EVERY 4 HRS/AWAKE 06/02 1999 AC 06/07 INH 0824 Aripiprazole 5 MG DAILY 06/01 1000 AC 06/07 PO 0837 Aripiprazole 2 MG DAILY 06/01 1000 AC 06/07 PO 0837 Bisacodyl 5 MG DAILY PRN 06/03 1245 AC PO Ciprofloxacin 500 MG BID 06/04 1400 AC 06/07 PO 06/08 1359 0837 Divalproex Sodium 250 MG QAM 06/01 1000 AC 06/07 PO 0837 Divalproex Sodium 500 MG AT BEDTIME 05/31 2230 AC 06/06 PO 2119 Enoxaparin Sodium 40 MG DAILY 06/05 1000 AC 06/07 SC 0836 Ferrous Sulfate 325 MG BID 06/01 2200 AC 06/07 PO 0837 Guaifenesin/ 5 ML Q6P PRN 05/31 2230 AC 06/04 Dextromethorphan PO 0417 Melatonin 3 MG AT BEDTIME PRN 06/02 0300 AC 06/07 PO 0256 Methylprednisolone 40 MG Q12 06/05 1915 AC 06/07 IV 0836 Montelukast Sodium 10 MG DAILY 06/01 1000 AC 06/07 PO 0837 Polyethylene Glycol 17 GM DAILY PRN 06/03 1245 AC PO Sodium Chloride 1 SPRAY 4 TIMES/DAY PRN 05/31 2230 AC 06/04 RADHAMES 0254 Tramadol HCl 50 MG Q8P PRN 05/31 2215 AC PO Vancomycin HCl 1,000 MG DAILY 06/04 1400 AC 06/07 Sodium Chloride 250 ML IV 0836 Vital Signs & I&O Last 24 Hrs of Vitals and I&O: Vital Signs Date Time Temp Pulse Resp B/P B/P Pulse O2 O2 Flow FiO2 Mean Ox Delivery Rate 06/07 824 90 Nasal 6.0L Cannula 06/07 722 98.3 84 20 120/72 90 06/07 0039 90 Nasal 6.0L Cannula 06/07 0000 94 Nasal 6.0L Cannula 06/06 2316 98.7 91 20 122/60 90 Nasal 6.0L Cannula 06/06 1609 92 Nasal 6.0L Cannula 06/06 1600 Nasal 6.0L Cannula 06/06 1545 98.4 82 20 124/66 90 Nasal Cannula Intake & Output 06/07 1600 06/07 0800 06/07 0000 Intake Total 240 Output Total 850 800 Balance -850 -560 Intake, Oral 240 Number 1 Bowel Movements Output, Urine 850 800 Physical Exam General Appearance: no apparent distress, alert, awake, comfortable Head: atraumatic Eyes: Bilateral: PERRL. Neck: supple Respiratory: quiet respiration, decreased breath sounds Cardiovascular: regular rate/rhythm Gastrointestinal: normal bowel sounds, soft, non-tender Extremities: no edema Skin: intact, normal color, warm/dry Impression/Plan Impression/Plan Impression/Plan: 1. Multifocal pneumonia, likely aspiration, however she has findings of a large heterogeneous, multinodular thyroid gland exerting a mass effect upon the trachea and the thoracic inlet. 2. Chronic anemia without evidence of bleeding - stable. 3. History of hyponatremia, on fluid restriction and salt tabs. 4. Moderate . 5. History of congestive heart failure. 6. History of bipolar disorder and schizoaffective disorder. 7. History of breast cancer status post lumpectomy with radiation. Recommendations: * Continue antibiotics per ID. * Maintain strict aspiration precautions, continue to follow up speech therapy recommendations. * TRC input/treatment to continue. * To oxygen saturations closely. Maintain saturation greater than 92%. * Continue guaifenesin. * DVT prophylaxis at all times. * Out of bed to chair.
[2017-06-07 09:24] LABS: ABSOLUTE BASOPHIL COUNT 0 /CUMM (0.0-0.2); ABSOLUTE EOSINOPHIL COUNT 0 /CUMM (0.0-0.7); ABSOLUTE GRANULOCYTE CT 5.7 /CUMM (1.4-6.5); ABSOLUTE LYMPH COUNT 0.8 /CUMM (1.2-3.4); ABSOLUTE MONOCYTE COUNT 0.6 /CUMM (0.10-0.60); BASOPHIL % 0 % (0.0-2.0); EOSINOPHIL % 0 % (0-5); GRANULOCYTE % 80.2 % (42.2-75.2); HEMATOCRIT 23.5 % (37-47); MEAN CORPUSCULAR HGB CONC 33.1 G/DL (33.0-37.0); MEAN CORPUSCULAR VOLUME 81.6 FL (81.0-99.0); MEAN PLATELET VOLUME 7.1 FL (7.4-10.4); PLATELET COUNT 241 /CUMM (130-400); RBC DISTRIBUTION WIDTH 21.9 % (11.5-14.5); RED BLOOD CELL CT 2.89 /CUMM (4.20-5.40); WHITE BLOOD CELL COUNT 7.1 /CUMM (4.8-10.8)
--- NOTE | 2017-06-07 14:36 | PN- Infect Dx ---
Subjective Subjective: Afebrile on steroids. She complains of shortness of breath, now on high flow oxygen, a nonproductive cough and chest discomfort. She also complains of abdominal pain. Objective Last 24 Hrs of Vital Signs/I&O Vital Signs Date Time Temp Pulse Resp B/P B/P Pulse O2 O2 Flow FiO2 Mean Ox Delivery Rate 06/07 1423 Nasal 6.0L Cannula 06/07 1306 Nasal 6.0L Cannula 06/07 0725 90 Nasal 6.0L Cannula 06/07 799 91 Nasal 55% Cannula 06/07 0723 98.3 84 20 120/72 90 06/07 0039 90 Nasal 6.0L Cannula 06/07 0000 94 Nasal 6.0L Cannula 06/06 2317 98.7 91 20 122/60 90 Nasal 6.0L Cannula 06/06 1609 92 Nasal 6.0L Cannula 06/06 1600 Nasal 6.0L Cannula 06/06 1545 98.4 82 20 124/66 90 Nasal Cannula Intake & Output 06/07 1600 06/07 0806/07 0000 Intake Total 575 240 Output Total 1400 850 800 Balance -825 -850 -560 Intake, IV 250 Intake, Oral 325 240 Number 1 Bowel Movements Output, Urine 1400 850 800 Physical Exam Other Physical Findings: She appears comfortable in no acute distress Lungs diffuse crackles with scattered wheezes Heart regular rhythm with no murmur Abdomen is distended, tender to palpation, with no guarding or rebound, positive bowel sounds Extremities 1+ edema all extremities Cheek catheter is in place Results Last 24 Hours of Lab Results: Laboratory Tests 06/07 06/07 0747 0015 Chemistry Sodium (137 - 145 mmol/L) 148 H Potassium (3.5 - 5.1 mmol/L) 3.3 L Chloride (98 - 107 mmol/L) 101 Carbon Dioxide (22 - 30 mmol/L) 36 H Anion Gap (5 - 16) 10 BUN (7 - 17 mg/dL) 16 Creatinine (0.5 - 1.0 mg/dL) 0.7 Estimated GFR (>60 ml/min) > 60 BUN/Creatinine Ratio (7 - 25 %) 22.9 Phosphorus (2.5 - 4.5 mg/dL) 3.3 Magnesium (1.6 - 2.3 mg/dL) 2.0 Troponin I (< 0.11 ng/ml) 0.03 Ust-[id number]-[id number] Pept (<125 pg/mL) 7370 H Hematology CBC w Diff MAN DIFF ORDERED WBC (4.8 - 10.8 /CUMM) 7.1 RBC (4.20 - 5.40 /CUMM) 2.89 L Hgb (12.0 - 16.0 G/DL) 7.8 L Hct (37 - 47 %) 23.5 L MCV (81.0 - 99.0 FL) 81.6 MCH (27.0 - 31.0 PG) 27.0 RDW (11.5 - 14.5 %) 21.9 H Plt Count (130 - 400 /CUMM) 241 MPV (7.4 - 10.4 FL) 7.1 L Gran % (42.2 - 75.2 %) 80.2 H Lymphocytes % (20.5 - 51.1 %) 11.2 L Monocytes % (1.7 - 9.3 %) 8.6 Eosinophils % (0 - 5 %) 0 Basophils % (0.0 - 2.0 %) 0 Absolute Granulocytes (1.4 - 6.5 /CUMM) 5.7 Segmented Neutrophils (42.2 - 75.2 %) 63 Band Neutrophils (0.0 - 5.0 %) 5 Absolute Lymphocytes (1.2 - 3.4 /CUMM) 0.8 L Lymphocytes (20.5 - 51.1 %) 14 L Monocytes (1.7 - 9.3 %) 8 Absolute Monocytes (0.10 - 0.60 /CUMM) 0.6 Absolute Eosinophils (0.0 - 0.7 /CUMM) 0 Absolute Basophils (0.0 - 0.2 /CUMM) 0 Metamyelocytes (0.0 - 1.0 %) 4 H Myelocytes (0 - 0 %) 6 H Nucleated RBCs (0.0 - 0.0 /100WBC) 1 H Platelet Estimate (ADEQUATE) ADEQUATE Polychromasia Hypochromic-Microcytic 1+ Poikilocytosis RARE Anisocytosis 2+ PUBS MCHC (33.0 - 37.0 G/DL) 33.1 Last 24 Hours of Neo Results: No new cultures Assessment/Plan Impression: Continued hypoxia, presumably secondary to pneumonia, with multilobar consolidation on the recent CT scan, with a possible element of fluid overload, particularly with her increasing BNP, status post 1 dose of Lasix 3 days ago and earlier today, and with concern noted regarding the large multinodular thyroid gland exerting a mass effect upon the trachea, for which she was placed on steroids, though this has been noted on CT scans over the past year and a half. She remains afebrile with a normal white blood cell count on Vancomycin and Ciprofloxacin Day 3 after an apparent lack of response to 3 days of Unasyn. The significance of her abdominal discomfort is unclear with the recent CT of the abdomen and pelvis negative. Suggestion: 1. Continue Vancomycin and Ciprofloxacin
[2017-06-07 15:18] VITALS: BP 130/62
[2017-06-07 17:00] VITALS: BP 130/70
--- NOTE | 2017-06-07 17:35 | RADIOLOGY REPORT ---
EXAMINATION: CHEST 1 VIEW CLINICAL INFORMATION: Shortness of breath. Pulmonary edema. COMPARISON: 06/05/2017. TECHNIQUE: An AP view of the chest is provided. FINDINGS: The cardiac silhouette is enlarged, but stable. There is bibasilar opacification, likely workforce services representative of a mixture of airspace disease and pleural fluid. There is moderate interstitial prominence present throughout both lungs. The osseous structures are stable. IMPRESSION: Stable cardiomegaly. Bibasilar opacification likely workforce services representative of a mixture of pleural fluid and parenchymal disease. Moderate interstitial prominence likely workforce services representative of vascular congestion.
--- NOTE | 2017-06-07 18:01 | Cons- Cardiology ---
General Information and HPI Consulting Request Date of Consult: 06/07/17 Requested By: Gris Hernandez MD History of Present Illness: Genny is a 71 year old female with history of hypertension, CVA and schizoaffective disorder. She presented to [facility] for evaluation of fever, cough and confusion and was found to have airspace disease consistent with pneumonia for which she is now being treated with antibiotics. This patient has also had issues with hyponatremia. Genny was noted to have oxygen desaturation today accompanies by shortness of breath. She also has chest discomfort. She is now on high flow oxygen and she cannot talk well enough to offer a complete history. Her chest discomfort is not entirely new as it was a complaint noted when I last saw her in 2013. At that time I recommended risk stratification with a stress test but I cannot find evidence that this was done in the record. At that time it was a typical anginal pain that radiated toward her neck, jaw and back and was exacerbated by physical activity. Over a much longer period of time this patient has noted shortness of breath with activity. At this time the patient has pulmonary infiltrates and bilateral pleural effusions. Her potassium is low at 3.3 with increase sodium of 148. She is moderate to severely anemic. Her last echocardiogram showed a normal EF of 60% with mild LVH. She has aortic sclerosis but not stenosis and mild tricuspid regurgitation. There is evidence of a thyroid mass with possible compression of her airway. Allergies/Medications Allergies: Coded Allergies: Sulfa (Sulfonamide Antibiotics) (Intermediate, FACIAL EDEMA 10/16/16) azithromycin (Intermediate, THROAT CLOSURE 10/16/16) egg (Intermediate, SWOLLEN RED EYES 10/16/16) lactose (Mild, unknown 06/07/17) atorvastatin (UNKNOWN 10/16/16) cephalexin (From KEFLEX) (UNKNOWN 05/31/17) ciprofloxacin (ANXIETY 10/16/16) Home Med List: Aripiprazole (Abilify) 2 MG TABLET 7 MG PO DAILY MENTAL HEALTH (Reported) Aspirin (Aspirin*) 81 MG TAB.CHEW 1 TAB PO DAILY HEART HEALTH (Reported) Diclofenac Sodium (Voltaren) 1 % GEL..GRAM. 1 GM TOP 4 TIMES/DAY PAIN ( Reported) apply to affected area(s) Divalproex Sodium 500 MG TABLET.DR 1 TAB PO [facility] MENTAL HEALTH (Reported) Divalproex Sodium 250 MG TABLET.DR 1 TAB PO QAM MENTAL HEALTH (Reported) Furosemide (Lasix) 40 MG TABLET 0.5 TAB PO QAM CHF (Reported) Guaifenesin/Dextromethorphan (Guaifenesin Dm Syrup) 100 MG-10 MG/5 ML SYRUP 1 TSP PO Q6-PRN PRN COUGH (Reported) [LACTAID] (Unknown Strength) TAB (Unknown Dose) PO DAILY LACTOSE INTOLERANT ( Reported) Lactase (Lactaid) (Unknown Strength) TABLET 1 TAB PO AD PRN LACTOSE INTOLERANT (Reported) Montelukast Sodium 10 MG TABLET 10 MG PO DAILY ALLERGIES (Reported) Potassium Chloride 20 MEQ TAB.ER.PRT 1 TAB PO DAILY SUPPLEMENT (Reported) Rosuvastatin Calcium (Crestor) 5 MG TABLET 5 MG PO QHS CHOLESTROL (Reported) Sodium Chloride (Saline Nasal [place]) 0.65 % SPRAY 1 SPRAY NASB 4 TIMES/DAY PRN ALLERGIES (Reported) [Sodium cloride] 2 GM TAB 1 TAB PO DAILY HYPONATREMIA (Reported) Review of Systems Review of Systems: A review of systems is unobtainable. Past History Travel History Traveled to [place] past 21 day No Medical History Blood Transfusion Hx: No Neurological: CVA, dizziness, vertigo EENT: allergies, CHRONIC SINUS PROBLEMS Cardiovascular: stage I diastolic congestive heart failure Respiratory: NONE Gastrointestinal: lactose intolerance Hepatic: NONE Renal: urinary incontinence, CHRONIC UTI Musculoskeletal: falls, degenerative knee arthritis "NO ROTATOR CUFF" R ARM Psychiatric: bipolar disease, schizophrenia Endocrine: iodine radiotherapy for GOITER Blood Disorders: NONE Cancer(s): BREAST CA (breast cancer, status post rig) MALE MODEL/Reproductive: NONE Surgical History Surgical History: cholecystectomy, , lumpectomy (right) Family History Relations & Conditions If Any: FATHER Coronary artery disease Psychosocial History Who Do You Live With? self Primary Language: Albanian Smoking Status: Unknown If Ever Smoked Living Will? no Functional Ability ADLs Needs Assist: dressing, eating, toileting, bathing. Ambulation: walker IADLs Needs Assist: shopping, housework, finances, food prep, telephone, transportation, medication admin. Exam & Diagnostic Data Vital Signs and I&O Vital Signs Date Time Temp Pulse Resp B/P B/P Pulse O2 O2 Flow FiO2 Mean Ox Delivery Rate 06/07 1600 94 Nasal 90% Cannula 06/07 1546 94 Nasal 95% Cannula 06/07 1518 97.7 87 18 130/62 88 Nasal 80% Cannula 06/07 1423 Nasal 6.0L Cannula 06/07 1306 Nasal 6.0L Cannula 06/07 824 90 Nasal 6.0L Cannula 06/07 799 91 Nasal 55% Cannula 06/07 722 98.3 84 20 120/72 90 06/07 0039 90 Nasal 6.0L Cannula 06/07 0000 94 Nasal 6.0L Cannula 06/06 2317 98.7 91 20 122/60 90 Nasal 6.0L Cannula Intake & Output 06/07 1600 06/07 0000 06/06 1600 06/06 0000 Intake Total 575 240 500 200 480 Output Total 1400 850 854 179 8232 600 Balance -825 -850 -560 -100 -800 -120 Intake, IV 250 Intake, Oral 325 240 500 200 480 Number 1 1 Bowel Movements Output, Urine 1400 850 486 455 9462 600 Physical Exam: General: WD/ obese female in moderate distress; awake and responsive HEENT: NC/AT, PERRL, EOMI Neck: no JVD, no carotid bruit Heart: RRR w/o murmur Lungs: decreased breath sounds at the bases bilaterally with overlying crackles Abdomen: soft, obese, NT, +ve bowel sounds Extremities: no lower extremity edema Assessment/Plan Assessment/Plan * This patient has an acute exacerbation of her shortness of breath with rising BNP and pleural effusions consistent with decompensated CHF. I suspect that hypoxia from her pneumonia and perhaps from a goiter induced tracheal obstructive has lead to cardiac decompensation with CHF. This is more likely than an acute coronary process. The patient was not noted to have aortic stenosis on her last echo from [facility]. I would diureses this patient with Lasix 20mg IV as needed to bring her oxygen saturation up to 90 percent. Consider CPAP for the obstructive process. * Repeat her echocardiogram to assess her overall EF and to check for the presence of . * Continue antibiotic therapy and aspiration precautions. * Follow her pleural effusions and consider thoracentesis if they prove to be large. Consult Acknowledgment - Thank you for your consult request.
[2017-06-08] VITALS: BP 120/60
[2017-06-08 05:43] LABS: ABSOLUTE BASOPHIL COUNT 0 /CUMM (0.0-0.2); ABSOLUTE EOSINOPHIL COUNT 0 /CUMM (0.0-0.7); ABSOLUTE GRANULOCYTE CT 5.5 /CUMM (1.4-6.5); ABSOLUTE LYMPH COUNT 0.7 /CUMM (1.2-3.4); ABSOLUTE MONOCYTE COUNT 0.5 /CUMM (0.10-0.60); BASOPHIL % 0 % (0.0-2.0); EOSINOPHIL % 0 % (0-5); GRANULOCYTE % 82.3 % (42.2-75.2); HEMATOCRIT 24.5 % (37-47); MEAN CORPUSCULAR HGB 26.9 PG (27.0-31.0); MEAN CORPUSCULAR HGB CONC 33.2 G/DL (33.0-37.0); MEAN PLATELET VOLUME 6.4 FL (7.4-10.4); RBC DISTRIBUTION WIDTH 21.2 % (11.5-14.5); RED BLOOD CELL CT 3.03 /CUMM (4.20-5.40); WHITE BLOOD CELL COUNT 6.7 /CUMM (4.8-10.8)
[2017-06-08 05:56] LABS: PLATELET COUNT 385 /CUMM (130-400)
--- NOTE | 2017-06-08 07:31 | PN- Housestaff ---
Assessment/Plan Assessment: 71-year-old female with past medical history of hypothermia, hyponatremia, vertigo, urinary incontinence, mild to moderate , CVA, CHF, DJD, bipolar disorder, schizoaffective disorder, chronic pedal edema, breast cancer s/p lumpectomy/radiation was brought in from short-term rehabilitation with a temperature recording of 100.3 and altered mental status strated yesterdy. Her H&H has dropped this morning to 7.4/22.3 Health care associated pneumonia: -Patient still has right-sided pleural effusion from small to moderate in amount -Patient met the criteria of healthcare associated pneumonia since she was living in [facility] -Strep pneumonia and the legionella were negative -Recent chest x-ray showed features suggestive of central hilar congestion suggestive of CHF but other causes couldn't be excluded, in addition increased right pleural effusion which was not seen on 05/31/17 -will need further assessment of thyroid enlargment which might have a role on upper airway compression and worsening oxygenation -Patient could have aspiration pneumonia as she has crackle on right side of chest and risk for aspiration. -1 dose Lasix 20 mg IV -Cardiology consult was placed, will follow up on the recommendation regarding possible acute exacerbation of CHF as a possible cause of her hypoxemia -Continue Guafenisin Continue IV Solu-Medrol 40 mg every 12 Continue IV vancomycin 1 g daily and Cipro 500 mg twice a day (day -TRC -Strict aspiration precaution Chronic hyponatremia over Corrected today sodium is 148 Close monitoring of BEP Patient is on fluid restriction of 1000 cc for chronic hyponatremia Severe anemia -most likely chronic anemai H & H 8.3/24.8 -MCV was normal, a low serum iron and TIBC, most likely her anemia is caused by mixture of iron -deficiency and chronic illness -Continue ferrous sulfate tablets -Guaiac was negative -Blood type and crossmatch, -will consider PRBC transfusion if her hemoglobin dropped below 7 -CT abdomen and pelvis with IV contrast ruled out with GI bleeding ? UTI Has been ruled out by normal urinalysis and urine culture -Continue Cheek catheter for adequate I's and O's and Patient is full code DVT prophylaxis with SC heparin Chopped diet with thin liquids
[2017-06-08 08:00] VITALS: BP 130/60
--- NOTE | 2017-06-08 10:36 | PN- Infect Dx ---
Subjective Subjective: Afebrile on steroids. She was moved to the ICU because of increasing oxygen requirements and was diuresed of a significant amount of fluid. She feels improved today. Objective Last 24 Hrs of Vital Signs/I&O Vital Signs Date Time Temp Pulse Resp B/P B/P Pulse O2 O2 Flow FiO2 Mean Ox Delivery Rate 06/08 0703 95 Nasal 65% Cannula 06/08 0400 95 Nasal 75% Cannula 06/08 0102 95 Nasal 75% Cannula 06/08 0000 92 Nasal 75% Cannula 06/08 0000 98.1 56 24 120/60 92 Nasal 75% Cannula 06/07 2125 92 Nasal 80% Cannula 06/07 2000 95 Nasal 80% Cannula 06/07 1700 92 Nasal 90% Cannula 06/07 1700 96.7 60 20 130/70 92 Nasal 80% Cannula 06/07 1600 94 Nasal 90% Cannula 06/07 1546 94 Nasal 95% Cannula 06/07 1518 97.7 87 18 130/62 88 Nasal 80% Cannula 06/07 1423 Nasal 6.0L Cannula 06/07 1306 Nasal 6.0L Cannula Intake & Output 06/08 1600 06/08 0800 06/08 0000 Intake Total 140 200 Output Total 500 1300 Balance -360 -1100 Intake, Oral 140 200 Number 0 Bowel Movements Output, Urine 500 1300 Physical Exam Other Physical Findings: She appears more comfortable, on high flow oxygen, in no acute distress Lungs diffuse crackles and rhonchi Heart regular rhythm with no murmur Abdomen is mildly distended, nontender with positive bowel sounds Extremities decreased edema all extremities Cheek catheter remains in place Results Last 24 Hours of Lab Results: Laboratory Tests 06/08 0425 Chemistry Sodium (137 - 145 mmol/L) 146 H Potassium (3.5 - 5.1 mmol/L) 3.6 Chloride (98 - 107 mmol/L) 99 Carbon Dioxide (22 - 30 mmol/L) 39 H Anion Gap (5 - 16) 8 BUN (7 - 17 mg/dL) 20 H Creatinine (0.5 - 1.0 mg/dL) 0.7 Estimated GFR (>60 ml/min) > 60 BUN/Creatinine Ratio (7 - 25 %) 28.6 H Hematology CBC w Diff NO MAN DIFF REQ WBC (4.8 - 10.8 /CUMM) 6.7 RBC (4.20 - 5.40 /CUMM) 3.03 L Hgb (12.0 - 16.0 G/DL) 8.1 L Hct (37 - 47 %) 24.5 L MCV (81.0 - 99.0 FL) 81.0 MCH (27.0 - 31.0 PG) 26.9 L RDW (11.5 - 14.5 %) 21.2 H Plt Count (130 - 400 /CUMM) 385 MPV (7.4 - 10.4 FL) 6.4 L Gran % (42.2 - 75.2 %) 82.3 H Lymphocytes % (20.5 - 51.1 %) 9.9 L Monocytes % (1.7 - 9.3 %) 7.8 Eosinophils % (0 - 5 %) 0 Basophils % (0.0 - 2.0 %) 0 Absolute Granulocytes (1.4 - 6.5 /CUMM) 5.5 Absolute Lymphocytes (1.2 - 3.4 /CUMM) 0.7 L Absolute Monocytes (0.10 - 0.60 /CUMM) 0.5 Absolute Eosinophils (0.0 - 0.7 /CUMM) 0 Absolute Basophils (0.0 - 0.2 /CUMM) 0 PUBS MCHC (33.0 - 37.0 G/DL) 33.2 Last 24 Hours of Neo Results: No new cultures Recent Imaging Studies: Chest x-ray June 07 reveals bibasilar opacifications with moderate interstitial prominence Assessment/Plan Impression: Appears improved today, after a significant diuresis yesterday, with decreasing oxygen requirements on high flow oxygen and with temperatures and white blood cell count remaining normal (on steroids) now Day 4 of Vancomycin and Ciprofloxacin for presumed multilobar pneumonia after 3 days of Unasyn. She remains on steroids for the possibility of tracheal compression from the multinodular goiter, though this has been noted on CT scans over the past year and a half. Suggestion: 1. Further diuresis per Cardiology 2. Further management of steroids per Pulmonary 3. Discontinue Vancomycin and Ciprofloxacin and follow off antibiotics
--- NOTE | 2017-06-08 10:42 | PN- Resident CRCU ---
Sondra Mcmahon 06/08/17 1041: Subjective HPI/CRCU Issues: AMS Community acquired pneumonia Anemia 24 Hour Events: Patient reports that she feels weak and hungry. She denies palpitations, CP, dyspnea or lightheadedness Objective Vital Signs & I&O Last 8 Hrs of Vitals and I&O: Tmax: 98.1 BP: 120-130/60 HR: 56-78 Exam General Appearance: well developed/nourished, no apparent distress, anxious, Disoriented Head: atraumatic, normal appearance Ears, Nose, Throat: normal pharynx, normal ENT inspection, hearing grossly normal Neck: normal inspection, supple, full range of motion Respiratory: Mild BL crackles Cardiovascular: regular rate/rhythm Extremities: no edema Current Medications: Current Medications Sig/Courtney Start time Last Medication Dose Route Stop Time Status Admin Acetaminophen 650 MG .STK-MED ONE 06/07 1601 DC PO 06/07 1602 Acetaminophen 650 MG Q8P PRN 05/31 2215 AC 06/07 PO 1602 Albuterol Sulfate 3 ML EVERY 4 HRS/AWAKE 06/02 2000 AC 06/08 INH 1158 Aripiprazole 5 MG DAILY 06/01 1000 AC 06/08 PO 0817 Aripiprazole 2 MG DAILY 06/01 1000 AC 06/08 PO 0818 Bisacodyl 5 MG DAILY PRN 06/03 1245 AC PO Ciprofloxacin 500 MG BID 06/04 1400 DC 06/08 PO 06/08 1359 1027 Divalproex Sodium 250 MG QAM 06/01 1000 AC 06/07 PO 0837 Divalproex Sodium 500 MG AT BEDTIME 05/31 2230 AC 06/07 PO 2121 Enoxaparin Sodium 40 MG DAILY 06/05 1000 AC 06/08 SC 0817 Ferrous Sulfate 325 MG BID 06/01 2200 AC 06/08 PO 0817 Furosemide 20 MG DAILY 06/09 1000 AC IV PUSH Furosemide 20 MG ONCE ONE 06/07 1630 DC 06/07 IV 06/07 1631 1633 Furosemide 40 MG .STK-MED ONE 06/07 1630 DC IV 06/07 1631 Guaifenesin/ 5 ML Q6P PRN 05/31 2230 AC 06/08 Dextromethorphan PO 0818 Melatonin 3 MG AT BEDTIME PRN 06/02 0300 AC 06/07 PO 0256 Methylprednisolone 40 MG Q12 06/05 1915 AC 06/08 IV 1027 Montelukast Sodium 10 MG DAILY 06/01 1000 AC 06/08 PO 1027 Omeprazole 40 MG DAILY AC 06/08 0918 AC 06/08 PO 1020 Polyethylene Glycol 17 GM DAILY PRN 06/03 1245 AC PO Potassium Chloride 40 MEQ BID 06/07 1830 AC 06/08 PO 0817 Sodium Chloride 2 SPRAY Q2P PRN 06/07 2015 AC 06/08 RADHAMES 0818 Sodium Chloride 1 SPRAY 4 TIMES/DAY PRN 05/31 2230 AC 06/07 RADHAMES 2120 Tramadol HCl 50 MG Q8P PRN 05/31 2215 AC 06/08 PO 1021 Vancomycin HCl 1,000 MG DAILY 06/04 1400 DC 06/08 Sodium Chloride 250 ML IV 0817 Impression/Plan Impression/Problem List Impression: 71-year-old female with past medical history of hypothermia, hyponatremia, vertigo, urinary incontinence, mild to moderate , CVA, CHF, DJD, bipolar disorder, schizoaffective disorder, chronic pedal edema, breast cancer s/p lumpectomy/radiation was brought in from short-term rehabilitation with a temperature recording of 100.3 and altered mental status. She was transferred to the ICU for respiratory distress Active issues: 1.Acute hypoxic respiratory failure 2.?Health care associated pneumonia 3.Chronic hyponatremia 4.Severe anemia 5.Hypokalemia Plan * DC antibiotics as per ID recommendations * CXR demonstrated pleural effusion with negative cultures * ECHO in a.m to r/o worsening SHD or valvular abnormalities * Possible thoracentesis in a.m. * Continue HF oxygen now @ 75%, TRC/nebs PRN * Low threshold for intubation * Continue Lasix daily * Continue iron supplementation * Continue IV Methylprenisolone * Fluid restriction of 1000 cc for chronic hyponatremia * Pain pthwy: Tramadol Problem List: 1. Altered mental status 2. Hyponatremia 3. Pneumonia Pain Ratin Tomorrow's Labs & Rationales: CBC, bundle Plan DVT/Prophylaxis: mechanical, pharmacological Mandy GARCIA,Pauly Sosa 06/08/17 1341: Attending MD Review Statement Attending Sign Off Attending Cosign Statement: I have: examined this patient, reviewed al EMR data, personally reviewd images, discussd w/resident/PA/ASSISTANT FACILITY MANAGER, discussed mgmt plan w/lori, discussed mgmt plan w/pt, agreed w/resident/PA/ASSISTANT FACILITY MANAGER.
--- NOTE | 2017-06-08 13:39 | PN- Cardiology ---
Subjective Subjective: * Breathing is a bit better. No chest pain. * sinus rhythm Objective Vital Signs and I&Os Vital Signs Date Time Temp Pulse Resp B/P B/P Pulse O2 O2 Flow FiO2 Mean Ox Delivery Rate 06/08 1242 Nasal 6.0L Cannula 06/08 1203 95 Nasal 55% Cannula 06/08 1200 95 Nasal 65% Cannula 06/08 0803 95 Nasal 65% Cannula 06/08 0800 92 Nasal 65% Cannula 06/08 08 97.2 78 20 130/60 98 Nasal 65% Cannula 06/08 0400 95 Nasal 75% Cannula 06/08 0102 95 Nasal 75% Cannula 06/08 0000 92 Nasal 75% Cannula 06/08 0000 98.1 56 24 120/60 92 Nasal 75% Cannula 06/07 2125 92 Nasal 80% Cannula 06/07 2000 95 Nasal 80% Cannula 06/07 1700 92 Nasal 90% Cannula 06/07 1700 96.7 60 20 130/70 92 Nasal 80% Cannula 06/07 1600 94 Nasal 90% Cannula 06/07 1546 94 Nasal 95% Cannula 06/07 1518 97.7 87 18 130/62 88 Nasal 80% Cannula 06/07 1423 Nasal 6.0L Cannula Intake & Output 06/08 1600 06/08 0800 06/08 0000 06/07 1600 06/07 0800 06/07 0000 Intake Total 140 200 575 240 Output Total 500 1300 1400 850 800 Balance -360 -1100 -825 -850 -560 Intake, IV 250 Intake, Oral 140 200 325 240 Number 0 1 Bowel Movements Output, Urine 500 1300 1400 850 800 Physical Exam: General: WD/ obese female in moderate distress; awake and responsive HEENT: NC/AT, PERRL, EOMI Neck: no JVD, no carotid bruit Heart: RRR w/o murmur Lungs: decreased breath sounds at the bases bilaterally, no crackles Abdomen: soft, obese, NT, +ve bowel sounds Extremities: no lower extremity edema Assessment/Plan Assessment/Plan * This patient had an acute exacerbation of her shortness of breath with rising BNP and pleural effusions consistent with decompensated CHF. I suspect that hypoxia from her pneumonia and perhaps from a goiter induced tracheal obstructive has lead to cardiac decompensation with CHF. This is more likely than an acute coronary process. Her troponin is normal. The patient was not noted to have aortic stenosis on her last echo from [facility]. Continue diuresis with Lasix 20mg IV BID. Consider CPAP for the obstructive process. * Repeat her echocardiogram to assess her overall EF and to check for the presence of . * Continue antibiotic therapy and aspiration precautions. * Follow her pleural effusions and consider thoracentesis if they prove to be large. Continue telemetry? Yes
[2017-06-08 16:00] VITALS: BP 110/70
[2017-06-09] VITALS: BP 124/68
[2017-06-09 05:04] LABS: ABSOLUTE BASOPHIL COUNT 0 /CUMM (0.0-0.2); ABSOLUTE EOSINOPHIL COUNT 0 /CUMM (0.0-0.7); ABSOLUTE GRANULOCYTE CT 7.4 /CUMM (1.4-6.5); ABSOLUTE LYMPH COUNT 0.6 /CUMM (1.2-3.4); ABSOLUTE MONOCYTE COUNT 0.6 /CUMM (0.10-0.60); BASOPHIL % 0 % (0.0-2.0); EOSINOPHIL % 0 % (0-5); GRANULOCYTE % 86.3 % (42.2-75.2); HEMATOCRIT 26.6 % (37-47); MEAN CORPUSCULAR HGB 26.8 PG (27.0-31.0); MEAN CORPUSCULAR HGB CONC 32.7 G/DL (33.0-37.0); MEAN CORPUSCULAR VOLUME 81.8 FL (81.0-99.0); PLATELET COUNT 509 /CUMM (130-400); RBC DISTRIBUTION WIDTH 21.1 % (11.5-14.5); RED BLOOD CELL CT 3.25 /CUMM (4.20-5.40)
[2017-06-09 06:05] LABS: WHITE BLOOD CELL COUNT 8.1 /CUMM (4.8-10.8)
--- NOTE | 2017-06-09 07:26 | PN- Resident CRCU ---
Subjective HPI/CRCU Issues: AMS Community acquired pneumonia Anemia 24 Hour Events: Patient visited today, was lying in bed comfortably in no acute distress, looking ill, was awake but not oriented. Antibiotics DC'd yesterday per ID. No fever or chills overnight, was complaining of being tired which was no different compared to yesterday, no chest pain, no other events. Objective Vital Signs & I&O Last 8 Hrs of Vitals and I&O: T: No fever Sinus rhythm/Sb 58-98, CA 18-28 , BP 102/51 - 156/58 Vent: HF/NC 35L Sat >91% Intake: 1490 Output: 1610 Exam General Appearance: well developed/nourished, no apparent distress, lethargic Head: atraumatic, normal appearance Neck: normal inspection, supple Respiratory: bilateral wheezing Cardiovascular: regular rate/rhythm Extremities: bilateral +1-+2 edema Current Medications: Current Medications Sig/Courtney Start time Last Medication Dose Route Stop Time Status Admin Acetaminophen 650 MG Q8P PRN 05/31 2215 AC 06/09 PO 0931 Albuterol Sulfate 3 ML EVERY 4 HRS/AWAKE 06/02 2000 AC 06/09 INH 0806 Aripiprazole 5 MG DAILY 06/01 1000 AC 06/09 PO 0902 Aripiprazole 2 MG DAILY 06/01 1000 AC 06/09 PO 0902 Bisacodyl 5 MG DAILY PRN 06/03 1245 AC PO Ciprofloxacin 500 MG BID 06/04 1400 DC 06/08 PO 06/08 1359 1027 Divalproex Sodium 250 MG QAM 06/01 1000 AC 06/09 PO 0902 Divalproex Sodium 500 MG AT BEDTIME 05/31 2230 AC 06/08 PO 2211 Enoxaparin Sodium 40 MG DAILY 06/05 1000 AC 06/09 SC 0903 Ferrous Sulfate 325 MG BID 06/01 2200 AC 06/09 PO 0902 Furosemide 20 MG DAILY 06/09 1000 AC 06/09 IV PUSH 0903 Guaifenesin/ 5 ML Q6P PRN 05/31 2230 AC 06/08 Dextromethorphan PO 0818 Melatonin 3 MG .STK-MED ONE 06/08 2214 DC PO 06/08 2215 Melatonin 3 MG AT BEDTIME PRN 06/02 0300 AC 06/08 PO 2214 Methylprednisolone 40 MG Q12 06/05 1915 AC 06/09 IV 0902 Montelukast Sodium 10 MG DAILY 06/01 1000 AC 06/09 PO 0902 Omeprazole 40 MG DAILY AC 06/08 0918 AC 06/09 PO 0709 Polyethylene Glycol 17 GM DAILY PRN 06/03 1245 AC PO Potassium Chloride 40 MEQ BID 06/07 1830 AC 06/09 PO 0902 Sodium Chloride 2 SPRAY Q2P PRN 06/07 2015 AC 06/08 RADHAMES 2218 Sodium Chloride 1 SPRAY 4 TIMES/DAY PRN 05/31 2230 AC 06/07 RADHAMES 2120 Tramadol HCl 50 MG Q8P PRN 05/31 2215 AC 06/08 PO 2215 Vancomycin HCl 1,000 MG DAILY 06/04 1400 DC 06/08 Sodium Chloride 250 ML IV 08 Impression/Plan Impression/Problem List Impression: 71-year-old female with past medical history of hypothermia, hyponatremia, vertigo, urinary incontinence, mild to moderate , CVA, CHF, DJD, bipolar disorder, schizoaffective disorder, chronic pedal edema, breast cancer s/p lumpectomy/radiation was brought in from short-term rehabilitation with a temperature recording of 100.3 and altered mental status. She was transferred to the ICU for respiratory distress Active issues: 1.Acute hypoxic respiratory failure 2.?Health care associated pneumonia 3.Chronic hyponatremia 4.Severe anemia 5.Hypokalemia Plan * DC antibiotics as per ID recommendations, no fever overnight * CXR demonstrated pleural effusion with negative cultures * ECHO showed EF of 75% with impaired relaxation * Possible thoracentesis in a.m. * Continue HF oxygen as noted above, TRC/nebs PRN * Low threshold for intubation * Continue Lasix daily * Continue iron supplementation * Continue IV Methylprenisolone * Fluid restriction of 1000 cc for chronic hyponatremia * Pain pthwy: Tramadol heart heathy diet DVT Ppx: mechanical, pharmacological Problem List: 1. Altered mental status 2. Pneumonia 3. Hyponatremia Pain Ratin Tomorrow's Labs & Rationales: CBC ICU bundle Plan DVT/Prophylaxis: mechanical, pharmacological
--- NOTE | 2017-06-09 07:28 | ECHOCARDIOGRAM REPORT ---
BUD ESPINOSA Age: 71 : 1945 Gender: F Exam Date: 06/08/2017 16:16 Exam Location: [facility] Ht (in): 60 Wt (lb): 170 BSA: 1.84 BP: 130 / 60 Ordering Physician: Sondra Mcmahon MD Referring Physician: Gil Victor MD, PhD Technologist: Sahara Callahan [facility] Room Number: 11 Indications: HEART FAILURE Rhythm: Sinus Technical Quality: good FINDINGS Left Ventricle Normal left ventricular size with mild left ventricular hypertrophy. Normal systolic function with no obvious regional wall motion abnormalities. Diastolic filling pattern consistent with impaired LV relaxation. The ejection fraction is visually estimated at 75 %. Right Ventricle The right ventricle is normal in size and function. Right Atrium The right atrium is normal in size. Left Atrium The left atrium is normal in size. The interatrial septum is intact. Mitral Valve The mitral valve demonstrates mild posterior annular calcification and thickened leaflets with normal function. There is mild mitral regurgitation. Aortic Valve Structurally normal aortic valve without significant sclerosis or stenosis. There is mild to moderate aortic regurgitation. Tricuspid Valve The tricuspid valve is normal in structure and function. There is modedrate tricuspid regurgitation. Pulmonary artery systolic pressure is normal. Pulmonic Valve Structurally normal pulmonic valve. There is no pulmonic regurgitation. Pericardium Normal pericardium with trace effusion. No pleural effusion. Great Vessels Normal aortic root dimension. The aortic arch and great vessels are well seen and are normal. CONCLUSIONS 1. Normal EF of 75% with impaired LV relaxation. 2. Mild left ventricular hypertrophy. 3. Mild mitral regurgitation. 4. Moderate tricuspid regurgitation. 5. Mild to moderate aortic insufficiency. 6. Trace pericardial effusion. Gil Victor M.D. (Electronically Signed) Final Date: 09 June 2017 07:27 MEASUREMENTS (Male / Female) Normal Values 2D ECHO LV Diastolic Diameter PLAX 3.5 cm 4.2 - 5.9 / 3.9 - 5.3 cm LV Systolic Diameter PLAX 2.0 cm 2.1 - 4.0 cm LV Fractional Shortening PLAX 42.9 % 25 - 46 % LV Ejection Fraction 2D Teich 75.0 % IVS Diastolic Thickness 1.5 cm LVPW Diastolic Thickness 1.3 cm LV Relative Wall Thickness 0.8 RV Internal Dim ED PLAX 3.2 cm 1.9 - 3.8 cm LVOT Diameter 1.9 cm Aortic Root Diameter 3.0 cm LA Systolic Diameter LX 3.3 cm 3.0 - 4.0 / 2.7 - 3.8 cm LA Volume 35.0 cm 18 - 58 / 22 - 52 cm Ascending Aorta Diameter 3.1 cm DOPPLER AV Peak Velocity 130.0 cm/s AV Peak Gradient 6.8 mmHg AV Mean Velocity 72.2 cm/s AV Mean Gradient 3.0 mmHg AV Velocity Time Integral 24.5 cm LVOT Peak Velocity 71.0 cm/s LVOT Peak Gradient 2.0 mmHg LVOT Mean Velocity 45.2 cm/s LVOT Mean Gradient 1.0 mmHg LVOT Velocity Time Integral 13.6 cm LVOT Stroke Volume 38.6 cm AV Area Cont Eq vti 1.6 cm AV Area Cont Eq pk 1.5 cm MV Peak Velocity 171.0 cm/s MV Peak Gradient 11.7 mmHg MV Mean Velocity 86.2 cm/s MV Mean Gradient 4.0 mmHg Mitral E Point Velocity 75.1 cm/s Mitral A Point Velocity 133.0 cm/s Mitral E to A Ratio 0.6 MV PHT Velocity 110.0 cm/s MV Deceleration [place] 508.0 cm/s MV Pressure Half Time 65.0 ms MV Area PHT 3.4 cm MV Deceleration Time 195.0 ms TR Peak Velocity 271.0 cm/s TR Peak Gradient 29.4 mmHg Right Atrial Pressure 5.0 mmHg Pulmonary Artery Systolic Pressu 34.4 mmHg Right Ventricular Systolic Press 34.4 mmHg PV Peak Velocity 86.9 cm/s PV Peak Gradient 3.0 mmHg PV Mean Velocity 55.5 cm/s PV Mean Gradient 2.0 mmHg PV Velocity Time Integral 21.2 cm LV E' Lateral Velocity 3.8 cm/s Mitral E to LV E' Lateral Ratio 19.8 LV E' Septal Velocity 4.5 cm/s Mitral E to LV E' Septal Ratio 16.8
[2017-06-09 08:00] VITALS: BP 120/62
--- NOTE | 2017-06-09 10:17 | PN- Infect Dx ---
Subjective Subjective: Afebrile on steroids. She complains of pain all over. Objective Last 24 Hrs of Vital Signs/I&O Vital Signs Date Time Temp Pulse Resp B/P B/P Pulse O2 O2 Flow FiO2 Mean Ox Delivery Rate 06/09 807 94 Nasal 50% Cannula 06/09 799 92 Nasal 50% Cannula 06/09 799 98.6 104 30 120/62 100 Nasal 50% Cannula 06/09 0400 95 Nasal 50% Cannula 06/09 0355 95 Nasal 50% Cannula 06/09 0213 95 Nasal 50% Cannula 06/09 0000 92 Nasal 50% Cannula 06/09 0000 98.0 58 12 124/68 92 Nasal 50% Cannula 06/08 2000 92 Nasal 50% Cannula 06/08 1654 95 Nasal 55% Cannula 06/08 1600 96 Nasal 55% Cannula 06/08 1600 97.9 78 20 110/70 96 Nasal 55% Cannula 06/08 1242 Nasal 6.0L Cannula 06/08 1203 95 Nasal 55% Cannula 06/08 1200 95 Nasal 65% Cannula Intake & Output 06/09 1600 06/09 0806/09 0000 Intake Total 200 480 Output Total 750 300 Balance -550 180 Intake, Oral 200 480 Number 0 0 Bowel Movements Output, Urine 750 300 Physical Exam Other Physical Findings: She appears comfortable in no acute distress on high flow oxygen Lungs diffuse crackles Heart regular rhythm with no murmur Abdomen is soft, obese, nontender with positive bowel sounds Extremities 1+ edema all extremities Cheek catheter remains in place Results Last 24 Hours of Lab Results: Laboratory Tests 06/09 043 Chemistry Sodium (137 - 145 mmol/L) 144 Potassium (3.5 - 5.1 mmol/L) 4.8 Chloride (98 - 107 mmol/L) 98 Carbon Dioxide (22 - 30 mmol/L) 36 H Anion Gap (5 - 16) 11 BUN (7 - 17 mg/dL) 19 H Creatinine (0.5 - 1.0 mg/dL) 0.7 Estimated GFR (>60 ml/min) > 60 Glucose (65 - 99 mg/dL) 137 H Calcium (8.4 - 10.2 mg/dL) 8.4 Phosphorus (2.5 - 4.5 mg/dL) 3.4 Magnesium (1.6 - 2.3 mg/dL) 1.9 Total Bilirubin (0.2 - 1.3 mg/dL) 0.3 AST (14 - 36 U/L) 23 ALT (9 - 52 U/L) 43 Albumin (3.5 - 5.0 g/dL) 2.7 L Hematology CBC w Diff MAN DIFF ORDERED WBC (4.8 - 10.8 /CUMM) 8.1 RBC (4.20 - 5.40 /CUMM) 3.25 L Hgb (12.0 - 16.0 G/DL) 8.7 L Hct (37 - 47 %) 26.6 L MCV (81.0 - 99.0 FL) 81.8 MCH (27.0 - 31.0 PG) 26.8 L RDW (11.5 - 14.5 %) 21.1 H Plt Count (130 - 400 /CUMM) 509 H MPV (7.4 - 10.4 FL) 6.0 L Gran % (42.2 - 75.2 %) 86.3 H Lymphocytes % (20.5 - 51.1 %) 7.2 L Monocytes % (1.7 - 9.3 %) 6.5 Eosinophils % (0 - 5 %) 0 Basophils % (0.0 - 2.0 %) 0 Absolute Granulocytes (1.4 - 6.5 /CUMM) 7.4 H Segmented Neutrophils (42.2 - 75.2 %) 82 H Band Neutrophils (0.0 - 5.0 %) 3 Absolute Lymphocytes (1.2 - 3.4 /CUMM) 0.6 L Lymphocytes (20.5 - 51.1 %) 10 L Monocytes (1.7 - 9.3 %) 3 Absolute Monocytes (0.10 - 0.60 /CUMM) 0.6 Eosinophils (0 - 5.0 %) 1 Absolute Eosinophils (0.0 - 0.7 /CUMM) 0 Absolute Basophils (0.0 - 0.2 /CUMM) 0 Metamyelocytes (0.0 - 1.0 %) 1 Nucleated RBCs (0.0 - 0.0 /100WBC) 6 H Platelet Estimate (ADEQUATE) ADEQUATE Polychromasia 1+ Hypochromic-Microcytic 1+ Anisocytosis 1+ Target Cells FEW Pedro Cells FEW Elliptocytes FEW PUBS MCHC (33.0 - 37.0 G/DL) 32.7 L Last 24 Hours of Neo Results: No new cultures Assessment/Plan Impression: Overall improved, with decreased oxygen requirements, presumably secondary to continued diuresis, with temperatures and white blood cell count remaining normal (on steroids) now off antibiotics after one week of treatment for presumed pneumonia. She remains on steroids for the possibility of tracheal compression from the multinodular goiter, though this has been noted on CT scans over the past year and a half. Suggestion: 1. Continue diuresis per Cardiology 2. Would consider tapering steroids 3. Continue to follow off antibiotics
--- NOTE | 2017-06-09 15:33 | PN- Cardiology ---
Subjective Subjective: * Breathing is improved. * Patient vacillates between sinus rhythm at about 60 to about 110 bpm * normal EF on echo Objective Vital Signs and I&Os Vital Signs Date Time Temp Pulse Resp B/P B/P Pulse O2 O2 Flow FiO2 Mean Ox Delivery Rate 06/09 1200 96 Nasal 45% Cannula 06/09 1136 95 Nasal 45% Cannula 06/09 0808 94 Nasal 50% Cannula 06/09 0800 92 Nasal 50% Cannula 06/09 08 98.6 104 30 120/62 100 Nasal 50% Cannula 06/09 0400 95 Nasal 50% Cannula 06/09 0355 95 Nasal 50% Cannula 06/09 0213 95 Nasal 50% Cannula 06/09 0000 92 Nasal 50% Cannula 06/09 0000 98.0 58 12 124/68 92 Nasal 50% Cannula 06/08 2000 92 Nasal 50% Cannula 06/08 1654 95 Nasal 55% Cannula 06/08 1600 96 Nasal 55% Cannula 06/08 1600 97.9 78 20 110/70 96 Nasal 55% Cannula Intake & Output 06/09 1600 06/09 0806/09 0000 06/08 1600 06/08 0800 06/08 0000 Intake Total 200 480 810 140 200 Output Total 750 300 317 606 0889 Balance -550 180 250 -360 -1100 Intake, IV 250 Intake, Oral 200 480 560 140 200 Number 0 0 2 0 Bowel Movements Output, Urine 750 300 671 525 8370 Physical Exam: General: WD/ obese female in NAD; awake and responsive on high flow oxygen Neck: no JVD, no carotid bruit Heart: RRR w/o murmur Lungs: decreased breath sounds at the bases bilaterally, no crackles Extremities: no lower extremity edema Assessment/Plan Assessment/Plan * This patient had an acute exacerbation of her shortness of breath with rising BNP and pleural effusions consistent with decompensated CHF. I suspect that hypoxia from her pneumonia and perhaps from a goiter induced tracheal obstructive has lead to cardiac decompensation with CHF. This is more likely than an acute coronary process. Her troponin is normal. The patient was not noted to have aortic stenosis on her last echo from [facility] or on her current study. Continue diuresis with Lasix 20mg IV BID. Consider CPAP for the obstructive process. * Obtain an AP and lateral decubitus chest X-ray to look for a layering pleural effusion. Consider a thoracentesis if significant fluid. * Continue antibiotic therapy and aspiration precautions. Continue telemetry? Yes
[2017-06-09 16:00] VITALS: BP 168/80
--- NOTE | 2017-06-09 17:55 | RADIOLOGY REPORT ---
EXAMINATION: XR PORTABLE CHEST CLINICAL INFORMATION: Shortness of breath. Pulmonary edema. COMPARISON: CT of chest 06/04/2017, chest x-ray 06/05/2017, 06/19/2017 TECHNIQUE: Portable frontal view of the chest was obtained. 5:29 PM FINDINGS: There is pulmonary vascular congestion with pulmonary edema. Bilateral airspace opacities greater on right than left with central hilar pulmonary vascular congestion. The severity of the pulmonary vascular congestion is improved since the exam of 06/19/2017. There is also a better inspiratory effort on this exam than the prior study. Chronic rotator cuff tendon tear the right shoulder with the humeral head impacting inferior surface of the acromion. IMPRESSION: Improving congestive heart failure.
[2017-06-10] VITALS: BP 141/55
[2017-06-10 04:23] LABS: ABSOLUTE BASOPHIL COUNT 0 /CUMM (0.0-0.2); ABSOLUTE EOSINOPHIL COUNT 0 /CUMM (0.0-0.7); ABSOLUTE GRANULOCYTE CT 7.5 /CUMM (1.4-6.5); ABSOLUTE LYMPH COUNT 0.6 /CUMM (1.2-3.4); ABSOLUTE MONOCYTE COUNT 0.4 /CUMM (0.10-0.60); BASOPHIL % 0.1 % (0.0-2.0); EOSINOPHIL % 0 % (0-5); GRANULOCYTE % 87.7 % (42.2-75.2); HEMATOCRIT 26.6 % (37-47); MEAN CORPUSCULAR HGB 26.1 PG (27.0-31.0); MEAN CORPUSCULAR HGB CONC 31.6 G/DL (33.0-37.0); MEAN CORPUSCULAR VOLUME 82.6 FL (81.0-99.0); PLATELET COUNT 569 /CUMM (130-400); RBC DISTRIBUTION WIDTH 21.8 % (11.5-14.5); RED BLOOD CELL CT 3.22 /CUMM (4.20-5.40); WHITE BLOOD CELL COUNT 8.6 /CUMM (4.8-10.8)
--- NOTE | 2017-06-10 07:46 | PN- Resident CRCU ---
Subjective HPI/CRCU Issues: 1.Acute hypoxic respiratory failure - improving 2.?Health care associated pneumonia 3.Chronic hyponatremia 4.Severe anemia 5.Hypokalemia - resolved 24 Hour Events: No acute event or complaints overnight Objective Vital Signs & I&O Last 8 Hrs of Vitals and I&O: BP: 141-160/55-80 HR: 82-89 I: 50 O: 660 O2 sat: 93% on HF 45% Exam General Appearance: lethargic, mild distress Head: atraumatic, normal appearance Ears, Nose, Throat: normal pharynx, normal ENT inspection, hearing grossly normal Neck: normal inspection, supple, full range of motion Respiratory: lungs clear Cardiovascular: 2/6 systolic murmur Gastrointestinal: normal bowel sounds, soft, non-tender Extremities: no edema Current Medications: Current Medications Sig/Courtney Start time Last Medication Dose Route Stop Time Status Admin Acetaminophen 650 MG Q8P PRN 05/31 2215 AC 06/09 PO 0931 Albuterol Sulfate 3 ML EVERY 4 HRS/AWAKE 06/02 1999 AC 06/10 INH 0832 Aripiprazole 5 MG DAILY 06/01 1000 AC 06/10 PO 0922 Aripiprazole 2 MG DAILY 06/01 1000 AC 06/10 PO 0922 Bisacodyl 5 MG DAILY PRN 06/03 1245 AC PO Divalproex Sodium 250 MG QAM 06/01 1000 AC 06/10 PO 0922 Divalproex Sodium 500 MG AT BEDTIME 05/31 2230 AC 06/09 PO 2155 Enoxaparin Sodium 40 MG DAILY 06/05 1000 AC 06/10 SC 0922 Ferrous Sulfate 325 MG BID 06/01 2200 AC 06/10 PO 0922 Furosemide 20 MG DAILY 06/09 1000 AC 06/10 IV PUSH 0921 Guaifenesin/ 5 ML Q6P PRN 05/31 2230 AC 06/08 Dextromethorphan PO 0818 Melatonin 3 MG AT BEDTIME PRN 06/02 0300 AC 06/08 PO 2214 Methylprednisolone 40 MG Q12 06/05 1915 AC 06/10 IV 0921 Montelukast Sodium 10 MG DAILY 06/01 1000 AC 06/10 PO 0922 Omeprazole 40 MG DAILY AC 06/08 0918 AC 06/10 PO 0610 Polyethylene Glycol 17 GM DAILY PRN 06/03 1245 AC PO Potassium Chloride 20 MEQ BID 06/10 1000 AC 06/10 PO 0930 Potassium Chloride 40 MEQ BID 06/07 1830 DC 06/09 PO 2155 Sodium Chloride 2 SPRAY Q2P PRN 06/07 2014 AC 06/08 RADHAMES 2218 Sodium Chloride 1 SPRAY 4 TIMES/DAY PRN 05/31 2230 AC 06/07 RADHAMES 2120 Tramadol HCl 50 MG Q8P PRN 05/31 2215 AC 06/09 PO 2246 CXR Findings: 06/10/17-929 TWO VIEWS IMPRESSION: Progressive improvement. Bilateral opacities persist with at least a small right pleural effusion. Impression/Plan Impression/Problem List Impression: 71-year-old female with past medical history of hypothermia, hyponatremia, vertigo, urinary incontinence, mild to moderate , CVA, CHF, DJD, bipolar disorder, schizoaffective disorder, chronic pedal edema, breast cancer s/p lumpectomy/radiation was brought in from short-term rehabilitation with a temperature recording of 100.3 and altered mental status. She was transferred to the ICU for respiratory distress Active issues: 1.Acute hypoxic respiratory failure - improving 2.?Health care associated pneumonia 3.Chronic hyponatremia 4.Severe anemia 5.Hypokalemia - resolved Plan * Antibiotics were discontinued as per ID recommendations * Repeat CXR demonstrated improving small R pleural effusion * Consider thoracentesis if signs and symptoms worsen * ECHO revealed normal systolic function with no obvious regional wall motion abnormalities. Nl EF of 75% with impaired LV relaxation * Continue HF oxygen now @ 45%, TRC/nebs PRN * Continue Lasix daily * Continue potassium supplementation * Continue iron supplementation * Continue IV Methylprenisolone * Fluid restriction of 1000 cc for chronic hyponatremia * Pain pthwy: Tramadol * Cardiology recommendations appreciated * Patient stable to return to floor Problem List: 1. Altered mental status Pain Ratin Tomorrow's Labs & Rationales: CBC, Bundle Plan DVT/Prophylaxis: mechanical, pharmacological
[2017-06-10 08:00] VITALS: BP 160/80
--- NOTE | 2017-06-10 08:16 | Transfer of Care Summary ---
Hospital Course Course Hospital Course: Reason for ICU admission: Transferred to ICU for respiratory distress with a low threshold for intubation HPI: Ms. Max is a 71-year-old female with past medical history of hypothermia , hyponatremia, vertigo, urinary incontinence, mild to moderate , CVA, CHF, DJD, bipolar disorder, schizoaffective disorder, chronic pedal edema, breast cancer s/p lumpectomy/radiation was brought in from short-term rehabilitation with a temperature recording of 100.3 and altered mental status. Interval events: Patient's respiratory distress were thought to be due to PNA vs decompensated CHF secondary to a goiter induced tracheal obstruction. Patient improved while on BiPAP and never required intubation. She was subsequently transitioned to HF oxygen supplementation. She was continued on IV Methylprenisolone. Her antibiotics were eventually discontinued as per ID recommendations because no signs of infection were concluded. She was followed off antibiotics. Repeat CXR AP/lateral demonstrated a resolving small R pleural effusion. She never required a thoracentesis as planned. ECHO revealed normal systolic function with no obvious regional wall motion abnormalities, nl EF of 75% with impaired LV relaxation. R chest US demonstrated no effusions. She spiked a low grade fever and blood cultures were sent. LRC were ordered. Mechanical ventilations: None. Off BiPAP. Off HF oxygen. NIPPV: No Antibiotics: Discontinued Vancomycin and Ciprofloxacin Cathethers/Lines: PIV Nutrition: Heart healthy DVT prophylaxis-sc Heparin CODE STATUS-FULL Assessment/Plan: 71-year-old female with past medical history of hypothermia, hyponatremia, vertigo, urinary incontinence, mild to moderate , CVA, CHF, DJD, bipolar disorder, schizoaffective disorder, chronic pedal edema, breast cancer s/p lumpectomy/radiation was brought in from short-term rehabilitation with a temperature recording of 100.3 and altered mental status. She was transferred to the ICU for respiratory distress Active issues: 1.Acute hypoxic respiratory failure - improving 2.?Health care associated pneumonia 3.Chronic hyponatremia 4.Severe anemia 5.Hypokalemia - resolved 7. Fever 100 - blood cultures sent 8. Decompensated CHF - ? due to a goiter induced tracheal obstruction Plan * Consider thoracentesis if pleural fluid worsen * Patient HF oxygen transitioned to nasal cannula * Continue Lasix BID * Continue potassium supplementation * Continue iron supplementation * Continue IV Methylprenisolone * Start PO steroid taper in a.m. * Fluid restriction of 1000 cc for chronic hyponatremia * Pain pthwy: Tramadol * Cardiology recommendations appreciated * Blood cultures x 2 sent * Sputum cultures ordered * Follow off antibiotics * PO steroids in a.m. * Outpatient ENT for ?obstructing thyroid
--- NOTE | 2017-06-10 09:41 | PN- Infect Dx ---
Subjective Subjective: Afebrile on steroids. She was apparently suctioned for thick zapata secretions. She feels poorly with multiple complaints including right-sided chest pain, abdominal pain and leg pain. Objective Last 24 Hrs of Vital Signs/I&O Vital Signs Date Time Temp Pulse Resp B/P B/P Pulse O2 O2 Flow FiO2 Mean Ox Delivery Rate 06/10 0847 92 Nasal 40% Cannula 06/10 0400 96 Nasal 30% Cannula 06/10 0124 93 Nasal 40% Cannula 06/10 0000 93 Nasal 35% Cannula 06/10 0000 82 18 141/55 93 Nasal 35% Cannula 06/09 2216 94 Nasal 40% Cannula 06/09 2000 95 Nasal 30% Cannula 06/09 1938 96 Nasal 40% Cannula 06/09 1645 95 Nasal 45% Cannula 06/09 1600 98 Nasal 45% Cannula 06/09 1600 97.4 108 20 168/80 98 Nasal 45% Cannula 06/09 1200 96 Nasal 45% Cannula 06/09 1136 95 Nasal 45% Cannula Intake & Output 06/10 1600 06/10 0800 06/10 0000 Intake Total 50 150 Output Total 660 400 Balance -610 -250 Intake, Oral 50 150 Output, Urine 660 400 Physical Exam Other Physical Findings: She appears in no acute distress on high flow oxygen, reduced to 45% Lungs diffuse rhonchi bilaterally Heart regular rhythm with no murmur Abdomen is soft, with no obvious tenderness, positive bowel sounds Extremities decreased edema all extremities Results Last 24 Hours of Lab Results: Laboratory Tests 06/10 034 Chemistry Sodium (137 - 145 mmol/L) 143 Potassium (3.5 - 5.1 mmol/L) 4.9 Chloride (98 - 107 mmol/L) 99 Carbon Dioxide (22 - 30 mmol/L) 37 H Anion Gap (5 - 16) 7 BUN (7 - 17 mg/dL) 19 H Creatinine (0.5 - 1.0 mg/dL) 0.7 Estimated GFR (>60 ml/min) > 60 Glucose (65 - 99 mg/dL) 135 H Calcium (8.4 - 10.2 mg/dL) 8.5 Phosphorus (2.5 - 4.5 mg/dL) 3.5 Magnesium (1.6 - 2.3 mg/dL) 2.0 Total Bilirubin (0.2 - 1.3 mg/dL) 0.3 AST (14 - 36 U/L) 18 ALT (9 - 52 U/L) 37 Albumin (3.5 - 5.0 g/dL) 2.7 L Hematology CBC w Diff MAN DIFF ORDERED WBC (4.8 - 10.8 /CUMM) 8.6 RBC (4.20 - 5.40 /CUMM) 3.22 L Hgb (12.0 - 16.0 G/DL) 8.4 L Hct (37 - 47 %) 26.6 L MCV (81.0 - 99.0 FL) 82.6 MCH (27.0 - 31.0 PG) 26.1 L RDW (11.5 - 14.5 %) 21.8 H Plt Count (130 - 400 /CUMM) 569 H MPV (7.4 - 10.4 FL) 6.0 L Gran % (42.2 - 75.2 %) 87.7 H Lymphocytes % (20.5 - 51.1 %) 7.5 L Monocytes % (1.7 - 9.3 %) 4.7 Eosinophils % (0 - 5 %) 0 Basophils % (0.0 - 2.0 %) 0.1 Absolute Granulocytes (1.4 - 6.5 /CUMM) 7.5 H Segmented Neutrophils (42.2 - 75.2 %) 84 H Band Neutrophils (0.0 - 5.0 %) 3 Absolute Lymphocytes (1.2 - 3.4 /CUMM) 0.6 L Lymphocytes (20.5 - 51.1 %) 4 L Monocytes (1.7 - 9.3 %) 7 Absolute Monocytes (0.10 - 0.60 /CUMM) 0.4 Absolute Eosinophils (0.0 - 0.7 /CUMM) 0 Absolute Basophils (0.0 - 0.2 /CUMM) 0 Metamyelocytes (0.0 - 1.0 %) 2 H Nucleated RBCs (0.0 - 0.0 /100WBC) 1 H Platelet Estimate (ADEQUATE) INCREASED Polychromasia 1+ Hypochromic-Microcytic 1+ Ovalocytes FEW PUBS MCHC (33.0 - 37.0 G/DL) 31.6 L Other Body Source Fld Total RBCs Counted (%) 100 Last 24 Hours of Neo Results: No new cultures Recent Imaging Studies: Chest x-ray June 09 reveals decreased pulmonary vascular congestion Assessment/Plan Impression: Overall improved, with decreased oxygen requirements, presumably secondary to treatment of CHF, with continued diuresis and with improvement in her chest x- ray as well. She remains afebrile with a normal white blood cell count on steroids and off antibiotics after one week of treatment for presumed pneumonia. She remains on steroids for the possibility of tracheal compression from the multinodular goiter, though this has been noted on CT scans over the past year and a half. Suggestion: 1. Sputum for culture 2. Ultrasound of the right chest, with thoracentesis if a significant effusion is noted 3. Continue diuresis per Cardiology 4. Would taper steroids 5. Continue to follow off antibiotics pending above
--- NOTE | 2017-06-10 10:35 | RADIOLOGY REPORT ---
EXAMINATION: XR CHEST CLINICAL INFORMATION: Pleural effusions COMPARISON: Multiple prior examinations most recently 06/09/2017 TECHNIQUE: 2 views of the chest were obtained. FINDINGS: Study limited due to patient's ability to cooperate at the time of the study. Multiple overlying EKG leads. The changes bilaterally are improving compared to earlier studies with less vascular congestion and interstitial changes. There remains patchy opacity in the left mid lung and right mid and lower lung with at least a small right-sided pleural effusion. Cardiac silhouette is prominent without change. IMPRESSION: Progressive improvement. Bilateral opacities persist with at least a small right pleural effusion.
[2017-06-10 16:00] VITALS: BP 140/98
--- NOTE | 2017-06-10 19:13 | PN- Cardiology ---
Subjective Subjective: * No complaints. * Oxygen requirements have increased. * Patient remains anemic Objective Vital Signs and I&Os Vital Signs Date Time Temp Pulse Resp B/P B/P Pulse O2 O2 Flow FiO2 Mean Ox Delivery Rate 06/10 1649 95 Nasal 45% Cannula 06/10 1600 96 Nasal 45% Cannula 06/10 1600 99.0 106 18 140/98 95 Nasal 45% Cannula 06/10 1420 96 Nasal 45% Cannula 06/10 1205 95 Nasal 45% Cannula 06/10 1200 93 Nasal 45% Cannula 06/10 0900 92 Nasal 45% Cannula 06/10 0847 92 Nasal 40% Cannula 06/10 08 93 Nasal 40% Cannula 06/10 08 97.7 89 17 160/80 93 Nasal 40% Cannula 06/10 0400 96 Nasal 30% Cannula 06/10 0124 93 Nasal 40% Cannula 06/10 0000 93 Nasal 35% Cannula 06/10 0000 82 18 141/55 93 Nasal 35% Cannula 06/09 2216 94 Nasal 40% Cannula 06/09 1999 95 Nasal 30% Cannula 06/09 1938 96 Nasal 40% Cannula Intake & Output 06/10 1600 06/10 0800 06/10 0000 06/09 1600 06/09 0800 06/09 0000 Intake Total 150 50 150 300 200 480 Output Total 1000 157 003 9550 750 300 Balance -850 -610 -250 -900 -550 180 Intake, Oral 150 50 150 300 200 480 Number 1 0 0 Bowel Movements Output, Urine 1000 573 429 2832 750 300 Physical Exam: General: WD/ obese female in NAD; awake and responsive on high flow oxygen Neck: no JVD, no carotid bruit Heart: RRR w/o murmur Lungs: decreased breath sounds at the bases bilaterally, no crackles Extremities: no lower extremity edema Assessment/Plan Assessment/Plan * This patient had an acute exacerbation of her shortness of breath with rising BNP and pleural effusions consistent with decompensated CHF. I suspect that hypoxia from her pneumonia and perhaps from a goiter induced tracheal obstructive has lead to cardiac decompensation with CHF. This is more likely than an acute coronary process. Her troponin is normal. The patient was not noted to have aortic stenosis on her last echo from [facility] or on her current study. Continue diuresis with Lasix 20mg IV BID. Consider CPAP for the obstructive process. * Chest Xray shows improvement. * Continue antibiotic therapy and aspiration precautions. Continue telemetry? Yes
--- NOTE | 2017-06-10 22:51 | ULTRASOUND REPORT ---
EXAMINATION: US PLEURAL EFFUSION CLINICAL INFORMATION: Respiratory distress. Evaluate effusions. COMPARISON: Chest radiograph from today. TECHNIQUE: Sonographic evaluation of the right and left chest. The patient was sleeping. Body habitus also limits evaluation. FINDINGS: There are no pleural effusions visualized bilaterally. IMPRESSION: No pleural effusion visualized on this limited study.
[2017-06-11] VITALS: BP 148/82
[2017-06-11 04:30] LABS: ABSOLUTE BASOPHIL COUNT 0 /CUMM (0.0-0.2); ABSOLUTE EOSINOPHIL COUNT 0 /CUMM (0.0-0.7); ABSOLUTE GRANULOCYTE CT 7.5 /CUMM (1.4-6.5); ABSOLUTE LYMPH COUNT 0.5 /CUMM (1.2-3.4); ABSOLUTE MONOCYTE COUNT 0.4 /CUMM (0.10-0.60); BASOPHIL % 0.1 % (0.0-2.0); EOSINOPHIL % 0 % (0-5); MEAN CORPUSCULAR HGB 26.7 PG (27.0-31.0); MEAN CORPUSCULAR HGB CONC 31.9 G/DL (33.0-37.0); MEAN CORPUSCULAR VOLUME 83.5 FL (81.0-99.0); MEAN PLATELET VOLUME 6.1 FL (7.4-10.4); RBC DISTRIBUTION WIDTH 22.3 % (11.5-14.5); RED BLOOD CELL CT 3.23 /CUMM (4.20-5.40); WHITE BLOOD CELL COUNT 8.4 /CUMM (4.8-10.8)
[2017-06-11 05:03] LABS: GRANULOCYTE % 89.1 % (42.2-75.2)
[2017-06-11 05:04] LABS: PLATELET COUNT 595 /CUMM (130-400)
--- NOTE | 2017-06-11 07:38 | PN- Resident CRCU ---
Sondra Mcmahon 06/11/17 0737: Subjective HPI/CRCU Issues: 1.Acute hypoxic respiratory failure - improving 2.?Health care associated pneumonia 3.Chronic hyponatremia 4.Severe anemia 5.Hypokalemia - resolved 24 Hour Events: Patient has no complaint or acute events overnight. She continues to be disoriented. Objective Vital Signs & I&O Last 8 Hrs of Vitals and I&O: Intake & Output 06/11 1600 Intake Total 332 Output Total 750 Balance -418 Intake, IV 32 Intake, Oral 300 Output, Urine 750 Patient 168 lb Weight Weight Polina Lift Measurement Method Exam General Appearance: Disoriented Head: atraumatic, normal appearance Ears, Nose, Throat: normal pharynx, normal ENT inspection, hearing grossly normal Neck: normal inspection, supple, full range of motion Respiratory: normal breath sounds Cardiovascular: 2/6 systolic murmur Extremities: no edema Current Medications: Current Medications Sig/Courtney Start time Last Medication Dose Route Stop Time Status Admin Acetaminophen 650 MG .STK-MED ONE 06/10 1705 DC PO 06/10 1706 Acetaminophen 650 MG Q8P PRN 05/31 2215 AC 06/09 PO 0931 Albuterol Sulfate 3 ML EVERY 4 HRS/AWAKE 06/02 1999 AC 06/11 INH 1142 Aripiprazole 5 MG DAILY 06/01 1000 AC 06/11 PO 0927 Aripiprazole 2 MG DAILY 06/01 1000 AC 06/11 PO 0927 Bisacodyl 5 MG DAILY PRN 06/03 1245 AC PO Divalproex Sodium 250 MG QAM 06/01 1000 AC 06/11 PO 0927 Divalproex Sodium 500 MG AT BEDTIME 05/31 2230 AC 06/10 PO 2136 Enoxaparin Sodium 40 MG DAILY 06/05 1000 AC 06/11 SC 0927 Ferrous Sulfate 325 MG BID 06/01 2200 AC 06/11 PO 0927 Furosemide 20 MG BID 06/11 1000 AC 06/11 IV PUSH 0926 Furosemide 20 MG DAILY 06/09 1000 DC 06/10 IV PUSH 0921 Guaifenesin/ 5 ML Q6P PRN 05/31 2230 AC 06/08 Dextromethorphan PO 0818 Melatonin 3 MG .STK-MED ONE 06/11 0142 DC PO 06/11 0143 Melatonin 3 MG AT BEDTIME PRN 06/02 0300 AC 06/11 PO 0142 Methylprednisolone 30 MG Q12 06/11 2200 AC IV Methylprednisolone 40 MG Q12 06/05 1915 DC 06/11 IV 0927 Montelukast Sodium 10 MG DAILY 06/01 1000 AC 06/11 PO 0927 Omeprazole 40 MG DAILY AC 06/08 0918 AC 06/11 PO 0626 Polyethylene Glycol 17 GM DAILY PRN 06/03 1245 AC PO Potassium Chloride 20 MEQ BID 06/10 1000 AC 06/11 PO 0927 Sodium Chloride 2 SPRAY Q2P PRN 06/07 2014 AC 06/08 RADHAMES 221 Sodium Chloride 1 SPRAY 4 TIMES/DAY PRN 05/31 223 AC 06/07 RADHAMES 2120 Tramadol HCl 50 MG Q8P PRN 05/31 221 AC 06/09 PO 2246 Impression/Plan Impression/Problem List Impression: 71-year-old female with past medical history of hypothermia, hyponatremia, vertigo, urinary incontinence, mild to moderate , CVA, CHF, DJD, bipolar disorder, schizoaffective disorder, chronic pedal edema, breast cancer s/p lumpectomy/radiation was brought in from short-term rehabilitation with a temperature recording of 100.3 and altered mental status. She was transferred to the ICU for respiratory distress Active issues: 1.Acute hypoxic respiratory failure - improving 2.?Health care associated pneumonia 3.Chronic hyponatremia 4.Severe anemia 5.Hypokalemia - resolved Plan * Antibiotics were discontinued as per ID recommendations * Repeat CXR demonstrated improving small R pleural effusion * Consider thoracentesis if signs and symptoms worsen * ECHO revealed normal systolic function with no obvious regional wall motion abnormalities. Nl EF of 75% with impaired LV relaxation * Continue HF oxygen now @ 40%, TRC/nebs PRN * Continue Lasix BID * Continue potassium supplementation * Continue iron supplementation * Continue IV Methylprenisolone * Start PO steroid taper in a.m. * Follow off antibiotics * Fluid restriction of 1000 cc for chronic hyponatremia * Pain pthwy: Tramadol * Cardiology recommendations appreciated * Patient stable to return to floor Problem List: 1. Altered mental status 2. Fever Pain Ratin Tomorrow's Labs & Rationales: CBC, Bundle Plan DVT/Prophylaxis: mechanical, pharmacological Lam GARCIA,Boo 06/11/17 1027: Attending MD Review Statement Attending Sign Off Attending Cosign Statement: I have: examined this patient, reviewed avalbl EMR data, personally reviewd images, discussd w/resident/PA/ORCHARD WORKER, discussed mgmt plan w/lori, discussed mgmt plan w/CM, discussed mgmt plan w/pt, agreed w/resident/PA/ORCHARD WORKER, amended to note. Other Findings: Impression 71 year old woman * multifocal pna, likely aspiration, however she has findings of a large heterogeneous, multinodular thyroid gland exerting a mass effect upon the trachea and the thoracic inlet * abx have been completed, no pleural effusion on lung ultrasound * improved decompensated chf (diastolic) * hypoxemic respiratory failure - will d/w RT to try ventimask and reduce fio2 as tolerated Plan -off abx per ID -outpatient ENT follow up (thyroid) maybe contributing -reduce solumedrol to 30mg iv q12h, if okay tomorrow can transition to PO -cont diuresis per cardiology DG to telemetry DVT prophylaxis at all times TTS 35 min Mandy GARCIA,ViviMiller Shuklaa 06/11/17 1129: Attending MD Review Statement Attending Sign Off Attending Cosign Statement: I have: examined this patient, reviewed avalbl EMR data, personally reviewd images, discussd w/resident/PA/ORCHARD WORKER, discussed mgmt plan w/pt, agreed w/resident/ PA/ORCHARD WORKER.
[2017-06-11 08:00] VITALS: BP 90/50
--- NOTE | 2017-06-11 11:04 | PN- Infect Dx ---
Subjective Subjective: MAXIMUM TEMPERATURE 100 on steroids. She does not offer any specific complaints. Objective Last 24 Hrs of Vital Signs/I&O Vital Signs Date Time Temp Pulse Resp B/P B/P Pulse O2 O2 Flow FiO2 Mean Ox Delivery Rate 06/11 0714 93 Nasal 40% Cannula 06/11 08 Nasal 40% Cannula 06/11 08 98.0 57 16 90/50 95 Nasal 40% Cannula 06/11 0400 97 Nasal 40% Cannula 06/11 0102 95 Nasal 40% Cannula 06/11 0000 94 Nasal 40% Cannula 06/11 0000 97.8 98 18 148/82 94 Nasal 40% Cannula 06/10 2237 92 Nasal 40% Cannula 06/10 2000 92 Nasal 40% Cannula 06/10 1649 95 Nasal 45% Cannula 06/10 1600 96 Nasal 45% Cannula 06/10 1600 99.0 106 18 140/98 95 Nasal 45% Cannula 06/10 1420 96 Nasal 45% Cannula 06/10 1205 95 Nasal 45% Cannula 06/10 1200 93 Nasal 45% Cannula Intake & Output 06/11 1600 06/11 0800 06/11 0000 Intake Total 100 300 Output Total 600 350 Balance -500 -50 Intake, Oral 100 300 Number 0 Bowel Movements Output, Urine 600 350 Patient 168 lb Weight Weight Polina Lift Measurement Method Physical Exam Other Physical Findings: She appears more comfortable in no acute distress Lungs are clearer, with bibasilar crackles Heart rhythm with no murmur Extremities trace edema all extremities Cheek catheter remains in place Results Last 24 Hours of Lab Results: Laboratory Tests 06/11 0305 Chemistry Sodium (137 - 145 mmol/L) 142 Potassium (3.5 - 5.1 mmol/L) 4.6 Chloride (98 - 107 mmol/L) 98 Carbon Dioxide (22 - 30 mmol/L) 34 H Anion Gap (5 - 16) 10 BUN (7 - 17 mg/dL) 24 H Creatinine (0.5 - 1.0 mg/dL) 0.7 Estimated GFR (>60 ml/min) > 60 Glucose (65 - 99 mg/dL) 132 H Calcium (8.4 - 10.2 mg/dL) 8.6 Phosphorus (2.5 - 4.5 mg/dL) 4.3 Magnesium (1.6 - 2.3 mg/dL) 2.0 Total Bilirubin (0.2 - 1.3 mg/dL) 0.3 AST (14 - 36 U/L) 19 ALT (9 - 52 U/L) 33 Albumin (3.5 - 5.0 g/dL) 2.8 L Hematology CBC w Diff NO MAN DIFF REQ WBC (4.8 - 10.8 /CUMM) 8.4 RBC (4.20 - 5.40 /CUMM) 3.23 L Hgb (12.0 - 16.0 G/DL) 8.6 L Hct (37 - 47 %) 27.0 L MCV (81.0 - 99.0 FL) 83.5 MCH (27.0 - 31.0 PG) 26.7 L RDW (11.5 - 14.5 %) 22.3 H Plt Count (130 - 400 /CUMM) 595 H MPV (7.4 - 10.4 FL) 6.1 L Gran % (42.2 - 75.2 %) 89.1 H Lymphocytes % (20.5 - 51.1 %) 6.0 L Monocytes % (1.7 - 9.3 %) 4.8 Eosinophils % (0 - 5 %) 0 Basophils % (0.0 - 2.0 %) 0.1 Absolute Granulocytes (1.4 - 6.5 /CUMM) 7.5 H Absolute Lymphocytes (1.2 - 3.4 /CUMM) 0.5 L Absolute Monocytes (0.10 - 0.60 /CUMM) 0.4 Absolute Eosinophils (0.0 - 0.7 /CUMM) 0 Absolute Basophils (0.0 - 0.2 /CUMM) 0 PUBS MCHC (33.0 - 37.0 G/DL) 31.9 L Last 24 Hours of Neo Results: Blood cultures 2 June 10 negative Recent Imaging Studies: Chest ultrasound June 10 no pleural effusion visualized Chest x-ray June 10 reveals decreased vascular congestion Assessment/Plan Impression: Continues to improve, now on nasal oxygen, with continued diuresis for CHF, which is the most likely explanation for her respiratory failure. She did have a low-grade fever yesterday (on steroids) but her white blood cell count remains normal off antibiotics after one week of treatment for possible pneumonia. Suggestion: 1. Sputum for culture if able to obtain 2. Continue diuresis per Cardiology 3. Continue to taper steroids per Pulmonary 4. Continue to follow off antibiotics
[2017-06-11 16:53] VITALS: BP 102/62
--- NOTE | 2017-06-11 21:32 | PN- Cardiology ---
See Addendum Subjective Subjective: * No complaints. Patient is off high flow oxygen. Objective Vital Signs and I&Os Vital Signs Date Time Temp Pulse Resp B/P B/P Pulse O2 O2 Flow FiO2 Mean Ox Delivery Rate 06/11 1956 95 Nasal 1.0L Cannula 06/11 1730 98.4 06/11 1653 100.0 103 18 102/62 94 Nasal Cannula 06/11 1624 94 Nasal 1.0L Cannula 06/11 1610 100.0 06/11 1600 94 Nasal 1.0L Cannula 06/11 1158 95 Nasal 1.0L Cannula 06/11 0814 93 Nasal 40% Cannula 06/11 0800 Nasal 40% Cannula 06/11 0800 98.0 57 16 90/50 95 Nasal 40% Cannula 06/11 0400 97 Nasal 40% Cannula 06/11 0102 95 Nasal 40% Cannula 06/11 0000 94 Nasal 40% Cannula 06/11 0000 97.8 98 18 148/82 94 Nasal 40% Cannula 06/10 2237 92 Nasal 40% Cannula Intake & Output 06/11 1600 06/11 0800 06/11 0000 06/10 1600 06/10 0800 06/10 0000 Intake Total 332 100 300 150 50 150 Output Total 750 888 301 2388 660 400 Balance -418 -500 -50 -850 -610 -250 Intake, IV 32 Intake, Oral 300 100 300 150 50 150 Number 0 Bowel Movements Output, Urine 750 494 074 4379 660 400 Patient 168 lb Weight Weight Polina Lift Measurement Method Physical Exam: General: WD/ obese female in NAD; awake and responsive on high flow oxygen Neck: no JVD, no carotid bruit Heart: RRR w/o murmur Lungs: no crackles or wheezing Extremities: no lower extremity edema Assessment/Plan Assessment/Plan * This patient had an acute exacerbation of her shortness of breath with rising BNP and pleural effusions consistent with decompensated CHF. I suspect that hypoxia from her pneumonia and perhaps from a goiter induced tracheal obstructive has lead to cardiac decompensation with CHF. This is more likely than an acute coronary process. Her troponin is normal. The patient was not noted to have aortic stenosis on her last echo from [facility] or on her current study. Change Lasix to 40mg PO daily. * Chest Xray shows improvement. Continue telemetry? Yes
[2017-06-11 21:50] VITALS: BP 98/56
[2017-06-12 06:39] VITALS: BP 120/80
[2017-06-12 09:09] LABS: ABSOLUTE BASOPHIL COUNT 0 /CUMM (0.0-0.2); ABSOLUTE EOSINOPHIL COUNT 0 /CUMM (0.0-0.7); ABSOLUTE GRANULOCYTE CT 9.4 /CUMM (1.4-6.5); ABSOLUTE LYMPH COUNT 0.7 /CUMM (1.2-3.4); ABSOLUTE MONOCYTE COUNT 0.5 /CUMM (0.10-0.60); BASOPHIL % 0.1 % (0.0-2.0); EOSINOPHIL % 0.1 % (0-5); GRANULOCYTE % 88.2 % (42.2-75.2); HEMATOCRIT 26.9 % (37-47); MEAN CORPUSCULAR HGB 27.1 PG (27.0-31.0); MEAN CORPUSCULAR HGB CONC 32.6 G/DL (33.0-37.0); MEAN CORPUSCULAR VOLUME 83.1 FL (81.0-99.0); MEAN PLATELET VOLUME 6.2 FL (7.4-10.4); RBC DISTRIBUTION WIDTH 22.5 % (11.5-14.5); RED BLOOD CELL CT 3.24 /CUMM (4.20-5.40); WHITE BLOOD CELL COUNT 10.6 /CUMM (4.8-10.8)
--- NOTE | 2017-06-12 09:21 | PN- Housestaff ---
Daniella Colon MD,Xander 06/12/17 0920: Subjective Follow-up For: Acute hypoxic respiratory failure - improving Decompensated CHF ?Health care associated pneumonia Chronic hyponatremia Severe anemia Hypokalemia - resolved Complaints: no complaints Review of Systems Constitutional: Denies: chills, fever. Cardiovascular: Denies: chest pain, palpitations. Respiratory: Denies: cough, short of breath. Gastrointestinal: Denies: abdominal pain, nausea, vomiting. Genitourinary: Denies: dysuria. Neurological/Psychological: Reports: confusion. Objective Last 24 Hrs of Vital Signs/I&O Vital Signs Date Time Temp Pulse Resp B/P B/P Pulse O2 O2 Flow FiO2 Mean Ox Delivery Rate 06/12 0800 Nasal 1.0L Cannula 06/12 0742 95 Nasal 1.0L Cannula 06/12 0639 98.8 84 20 120/80 94 Nasal 2.0L Cannula 06/12 0000 95 Nasal 1.0L Cannula 06/11 2150 98.7 100 24 98/56 92 Nasal Cannula 06/11 1956 95 Nasal 1.0L Cannula 06/11 1730 98.4 06/11 1653 100.0 103 18 102/62 94 Nasal Cannula 06/11 1624 94 Nasal 1.0L Cannula 06/11 1610 100.0 06/11 1600 94 Nasal 1.0L Cannula 06/11 1158 95 Nasal 1.0L Cannula Intake & Output 06/12 1600 06/12 0800 06/12 0000 Intake Total 110 210 Output Total 225 175 Balance -115 35 Intake, IV 10 10 Intake, Oral 100 200 Number 2 Bowel Movements Output, Urine 225 175 Physical Exam General Appearance: Obese, AMS HEENT: Atraumatic Neck: Supple, No JVD Cardiovascular: Regular Rate, Normal S1, Normal S2 Lungs: Clear to Auscultation, Normal Air Movement, Bibasilar crackles Abdomen: Normal Bowel Sounds, Soft, No Tenderness Extremities: Trace lower extremity edema Last 24 Hrs of Lab/Neo Results Last 24 Hrs of Labs/Mics: Laboratory Tests 06/12/17 0610: Anion Gap 12, Estimated GFR > 60, BUN/Creatinine Ratio 41.1 H, CBC w Diff Pending, WBC Pending, RBC Pending, Hgb Pending, Hct Pending, MCV Pending, MCH Pending, RDW Pending, Plt Count Pending, MPV Pending, PUBS MCHC Pending Microbiology 06/11 1745 URINE ROUT: Urine Culture - COLB 06/11 1600 LOWER RESP: Respiratory Culture - COLB 06/11 1600 LOWER RESP: Gram Stain - COLB Lines/Diet/Fluids Lines: peripheral lines Restraints: none Assessment/Plan Assessment: 71-year-old female with past medical history of hypothermia, hyponatremia, vertigo, urinary incontinence, mild to moderate , CVA, CHF, DJD, bipolar disorder, schizoaffective disorder, chronic pedal edema, breast cancer s/p lumpectomy/radiation was brought in from short-term rehabilitation with a temperature recording of 100.3 and altered mental status strated yesterdy. Her H&H has dropped this morning to 7.4/22.3 Health care associated pneumonia: Patient met the criteria of healthcare associated pneumonia since she was living in [facility] Strep pneumonia and the legionella were negative will need further assessment of thyroid enlargment which might have a role on upper airway compression and worsening oxygenation, swallow eval done and patient's diet adjusted. Patient could have aspiration pneumonia as she is high risk for aspiration. Patient had Tmax 100 yeaterday. no tachpnea and oxygen saturation improved 94-95 % on 1 L. Continue Guafenisin Continue IV Solu-Medrol 30 mg every 12 Continue to follow off ABx as per ID [facility] Strict aspiration precaution Decompensated CHF Patient had right-sided pleural effusion from small to moderate in amount in previous imaging. Recent chest x-ray showed features suggestive of central hilar congestion suggestive of CHF but other causes couldn't be excluded, in addition increased right pleural effusion which was not seen on 05/31/17 Curently on Lasix 40 mg po, overall Negative balance of 883 yesterday Cardiology consult was placed, will follow up on the recommendation regarding possible acute exacerbation of CHF as a possible cause of her hypoxemia Chronic hyponatremia Today sodium is 142 Close monitoring of BEP Patient is on fluid restriction of 1000 cc for chronic hyponatremia Severe anemia -Most likely chronic anemia H & H 8.11/24 yesterday MCV was normal, a low serum iron and TIBC, most likely her anemia is caused by mixture of iron -deficiency and anemia of chronic disease Continue ferrous sulfate tablets Guaiac was negative Blood type and crossmatch was ordered will consider PRBC transfusion if her hemoglobin dropped below 7 CT abdomen and pelvis with IV contrast ruled out with GI bleeding ? UTI Has been ruled out by normal urinalysis and urine culture Continue Cheek catheter for adequate I's and O's and Chronic medical problems bipolar disorder schizoaffective disorder We continue home medications for bipolar and schizoaffective disorder Patient is full code DVT prophylaxis with SC Lovenox Chopped diet with thin liquids Problem List: 1. Pneumonia 2. Hyponatremia 3. CHF (congestive heart failure) Pain Ratin Pain Location: Chronic pain Pain Goal: Pain 4 or less Pain Plan: Continue pain meds Tomorrow's Labs & Rationales: CBC for anemia BEP for electrolytes DVT/Prophylaxis: pharmacological Ayse GARCIA,Taye 06/12/17 1341: Attending MD Review Statement Attending Statement Attending MD Statement: examined this patient, discuss w/resident/PA/SEEING EYE DOG TEACHER, agreed w/resident/PA/SEEING EYE DOG TEACHER, reviewed EMR data (avail), discussed with nursing, amended to note Attending Assessment/Plan: Patient seen and examined. Sitting comfortably in her bed and not in acute distress. No issues overnight. She remains in sinus rhythm on telemetry monitoring. She does complain of malaise. Denies chest pain. Denies shortness of breath. Denies cough. She is afebrile and hemodynamically stable. On examination heart sounds are regular with a 2/6 systolic murmur.. Lungs have diminished air entry bilaterally but otherwise clear to auscultation. Abdomen is soft and nontender. She has no peripheral edema. Problems: 1. Acute hypoxic respiratory failure. 2. Acute on chronic heart failure with preserved ejection fraction 3. Chronic anemia 4. Pneumonia cervical multilobular presumed to be due to aspiration. Plan: -She received 3 days of IV Unasyn and additional 5 days of IV Vanco/Cipro. -She has been transitioned to oral diuretic therapy with Lasix. Continue to monitor clinically. -Physical therapy evaluation. -Begin discharge planning if she continues to remain clinically stable.
--- NOTE | 2017-06-12 10:06 | PN- Infect Dx ---
Subjective Subjective: MAXIMUM TEMPERATURE 100 on steroids. She complains of pain all over. Objective Last 24 Hrs of Vital Signs/I&O Vital Signs Date Time Temp Pulse Resp B/P B/P Pulse O2 O2 Flow FiO2 Mean Ox Delivery Rate 06/12 0800 Nasal 1.0L Cannula 06/12 0742 95 Nasal 1.0L Cannula 06/12 0639 98.8 84 20 120/80 94 Nasal 2.0L Cannula 06/12 0000 95 Nasal 1.0L Cannula 06/11 2150 98.7 100 24 98/56 92 Nasal Cannula 06/11 1956 95 Nasal 1.0L Cannula 06/11 1730 98.4 06/11 1653 100.0 103 18 102/62 94 Nasal Cannula 06/11 1624 94 Nasal 1.0L Cannula 06/11 1610 100.0 06/11 1600 94 Nasal 1.0L Cannula 06/11 1158 95 Nasal 1.0L Cannula Intake & Output 06/12 1600 06/12 0800 06/12 0000 Intake Total 110 210 Output Total 225 175 Balance -115 35 Intake, IV 10 10 Intake, Oral 100 200 Number 2 Bowel Movements Output, Urine 225 175 Physical Exam Other Physical Findings: She appears comfortable in no acute distress, on 1 L of nasal oxygen Lungs bibasilar crackles and scattered rhonchi Heart regular rhythm with no murmur Abdomen is soft, nontender positive bowel sounds Extremities decreased edema all extremities Cheek catheter remains in place Results Last 24 Hours of Lab Results: Laboratory Tests 06/12 0610 Chemistry Sodium (137 - 145 mmol/L) 142 Potassium (3.5 - 5.1 mmol/L) 4.8 Chloride (98 - 107 mmol/L) 97 L Carbon Dioxide (22 - 30 mmol/L) 33 H Anion Gap (5 - 16) 12 BUN (7 - 17 mg/dL) 37 H Creatinine (0.5 - 1.0 mg/dL) 0.9 Estimated GFR (>60 ml/min) > 60 BUN/Creatinine Ratio (7 - 25 %) 41.1 H Hematology CBC w Diff Pending WBC Pending RBC Pending Hgb Pending Hct Pending MCV Pending MCH Pending RDW Pending Plt Count Pending MPV Pending PUBS MCHC Pending Last 24 Hours of Neo Results: Blood cultures June 10 negative Assessment/Plan Impression: Stable, with marked improvement in her respiratory status (now on 1 L of oxygen nasally) secondary to diuresis for CHF, which is the presumed explanation for her respiratory failure. She again had a low-grade fever yesterday (on steroids ) but her white blood cell count remains normal off antibiotics and, given her overall improvemen, feel she can continue to be followed off antibiotics. Suggestion: 1. Urine culture 2. Further management of her CHF per Cardiology 3. Continue to taper steroids per Pulmonary 4. Remove Cheek catheter if okay with Cardiology 5. Continue to follow off antibiotics
--- NOTE | 2017-06-12 12:10 | PN- Pulmonary ---
Subjective HPI/Critical Care Issues: Sleeping Low grade temp On off pain noted Objective Current Medications: Current Medications Sig/Courtney Start time Last Medication Dose Route Stop Time Status Admin Acetaminophen 650 MG .STK-MED ONE 06/11 1606 DC PO 06/11 1607 Acetaminophen 650 MG Q8P PRN 05/31 2215 AC 06/11 PO 1610 Albuterol Sulfate 3 ML EVERY 4 HRS/AWAKE 06/02 1999 AC 06/12 INH 1153 Aripiprazole 5 MG DAILY 06/01 1000 AC 06/12 PO 0848 Aripiprazole 2 MG DAILY 06/01 1000 AC 06/12 PO 0848 Bisacodyl 5 MG DAILY PRN 06/03 1245 AC PO Divalproex Sodium 250 MG QAM 06/01 1000 AC 06/12 PO 0848 Divalproex Sodium 500 MG AT BEDTIME 05/31 2230 AC 06/11 PO 2222 Enoxaparin Sodium 40 MG DAILY 06/05 1000 AC 06/12 SC 0848 Ferrous Sulfate 325 MG BID 06/01 2200 AC 06/12 PO 0848 Furosemide 40 MG DAILY 06/12 1000 AC 06/12 PO 0848 Furosemide 20 MG BID 06/11 1000 DC 06/11 IV PUSH 2221 Guaifenesin/ 5 ML Q6P PRN 05/31 2230 AC 06/08 Dextromethorphan PO 0818 Melatonin 3 MG AT BEDTIME PRN 06/02 0300 AC 06/11 PO 0142 Methylprednisolone 30 MG Q12 06/11 2200 AC 06/12 IV 0848 Montelukast Sodium 10 MG DAILY 06/01 1000 AC 06/12 PO 0848 Omeprazole 40 MG DAILY AC 06/08 0918 AC 06/12 PO 0541 Polyethylene Glycol 17 GM DAILY PRN 06/03 1245 AC PO Potassium Chloride 20 MEQ BID 06/10 1000 AC 06/12 PO 0847 Sodium Chloride 2 SPRAY Q2P PRN 06/07 2014 AC 06/08 RADHAMES 2218 Sodium Chloride 1 SPRAY 4 TIMES/DAY PRN 05/31 223 AC 06/07 RADHAMES 2120 Tramadol HCl 50 MG Q8P PRN 05/31 2215 AC 06/12 PO 0848 Vital Signs & I&O Last 24 Hrs of Vitals and I&O: Vital Signs Date Time Temp Pulse Resp B/P B/P Pulse O2 O2 Flow FiO2 Mean Ox Delivery Rate 06/12 0800 Nasal 1.0L Cannula 06/12 0742 95 Nasal 1.0L Cannula 06/12 0639 98.8 84 20 120/80 94 Nasal 2.0L Cannula 06/12 0000 95 Nasal 1.0L Cannula 06/11 2150 98.7 100 24 98/56 92 Nasal Cannula 06/11 1956 95 Nasal 1.0L Cannula 06/11 1730 98.4 06/11 1653 100.0 103 18 102/62 94 Nasal Cannula 06/11 1624 94 Nasal 1.0L Cannula 06/11 1610 100.0 06/11 1600 94 Nasal 1.0L Cannula Intake & Output 06/12 1600 06/12 0800 06/12 0000 Intake Total 110 210 Output Total 225 175 Balance -115 35 Intake, IV 10 10 Intake, Oral 100 200 Number 2 Bowel Movements Output, Urine 225 175 Impression/Plan Impression/Plan Impression/Plan: She appears comfortable in no acute distress, on 1 L of nasal oxygen Lungs bibasilar crackles and scattered rhonchi Heart regular rhythm with no murmur Abdomen is soft, nontender positive bowel sounds Extremities decreased edema all extremities Cheek catheter remains in place IMPRESSION 71 year old woman * Multifocal pna, likely aspiration, however she has findings of a large heterogeneous, multinodular thyroid gland exerting a mass effect upon the trachea and the thoracic inlet * Abx have been completed, no pleural effusion on lung ultrasound * improved decompensated chf (diastolic) * Improving hypoxemic respiratory failure - will d/w RT to try ventimask and reduce fio2 as tolerated Plan -off abx per ID -outpatient ENT follow up (thyroid) maybe contributing -Po steroids -cont diuresis per cardiology
[2017-06-12 12:19] LABS: PLATELET COUNT 639 /CUMM (130-400)
[2017-06-12 15:43] VITALS: BP 106/60
[2017-06-12 23:20] VITALS: BP 132/80
--- NOTE | 2017-06-13 05:44 | PN- Housestaff ---
Luba GARCIA,Iliana 06/13/17 0543: Subjective Follow-up For: f/u decompesated CHF ? multilobar pneumonia thyroid induced tracheal obstruction Complaints: pain in both legs Tele-Events Since Last Visit: off tele Subjective: She was sitting on the couch and responded to all for questions. She was complaining of pain in her both legs and belly. Vital signs -temperature 98.6, blood pressure 100/52, SPO2 97%. On blood work up hemoglobin was 8.6, hematocrit 26.2, platelet count 640, BUN 36, creatinine 0.9, We will follow the urine culture. Review of Systems Constitutional: Reports: no symptoms, weakness. Musculoskeletal: Reports: joint pain. Objective Last 24 Hrs of Vital Signs/I&O Vital Signs Date Time Temp Pulse Resp B/P B/P Pulse O2 O2 Flow FiO2 Mean Ox Delivery Rate 06/13 0835 95 Nasal 1.0L Cannula 06/13 0800 Nasal 1.0L Cannula 06/13 0709 98.6 86 20 108/52 97 Nasal Cannula 06/13 0000 Nasal 1.0L Cannula 06/12 2320 98.4 99 22 132/80 95 Nasal 1.0L Cannula 06/12 1646 98 Nasal 1.0L Cannula 06/12 1543 98.7 88 20 106/60 94 Nasal Cannula Intake & Output 06/13 1600 06/13 0800 06/13 0000 Intake Total 260 Output Total 100 Balance 160 Intake, Oral 260 Number 1 Bowel Movements Output, Urine 100 Patient 74.077 kg Weight Weight Polina Lift Measurement Method Physical Exam General Appearance: Oriented X3, Cooperative, No Acute Distress Cardiovascular: Normal S1, Normal S2 Lungs: mild basilar crepts Abdomen: Soft, distended Neurological: Normal Speech Extremities: bilateral lower leg edema Vascular: Normal Pulses, Pulses Symmetrical Current Medications: Current Medications Sig/Courtney Start time Last Medication Dose Route Stop Time Status Admin Acetaminophen 650 MG .STK-MED ONE 06/12 1619 DC PO 06/12 1620 Acetaminophen 650 MG Q8P PRN 05/31 2215 AC 06/12 PO 1622 Albuterol Sulfate 3 ML EVERY 4 HRS/AWAKE 06/02 1999 AC 06/13 INH 1137 Aripiprazole 5 MG DAILY 06/01 999 AC 06/13 PO 0846 Aripiprazole 2 MG DAILY 06/01 999 AC 06/13 PO 0846 Bisacodyl 5 MG DAILY PRN 06/03 1245 AC PO Divalproex Sodium 250 MG QAM 06/01 1000 AC 06/13 PO 0846 Divalproex Sodium 500 MG AT BEDTIME 05/31 223 AC 06/12 PO 2121 Enoxaparin Sodium 40 MG DAILY 06/05 1000 AC 06/13 SC 0847 Ferrous Sulfate 325 MG BID 06/01 2200 AC 06/13 PO 0846 Furosemide 40 MG DAILY 06/12 1000 AC 06/13 PO 0846 Guaifenesin/ 5 ML Q6P PRN 05/31 223 AC 06/08 Dextromethorphan PO 0818 Melatonin 3 MG AT BEDTIME PRN 06/02 0300 AC 06/11 PO 0142 Methylprednisolone 30 MG Q12 06/11 2199 DC 06/12 IV 0848 Montelukast Sodium 10 MG DAILY 06/01 1000 AC 06/13 PO 0846 Omeprazole 40 MG DAILY AC 06/08 0918 AC 06/12 PO 0541 Polyethylene Glycol 17 GM DAILY PRN 06/03 1245 AC PO Potassium Chloride 20 MEQ BID 06/10 1000 AC 06/13 PO 0847 Prednisone 50 MG DAILY 06/12 1550 AC 06/13 PO 0847 Sodium Chloride 2 SPRAY Q2P PRN 06/07 2015 AC 06/08 RADHAMES 2218 Sodium Chloride 1 SPRAY 4 TIMES/DAY PRN 05/31 2229 AC 06/07 RADHAMES 2120 Tramadol HCl 50 MG Q8P PRN 05/31 221 AC 06/12 PO 0848 Last 24 Hrs of Lab/Neo Results Last 24 Hrs of Labs/Mics: Laboratory Tests 06/13/17 0635: Anion Gap 8, Estimated GFR > 60, BUN/Creatinine Ratio 40.0 H, CBC w Diff NO MAN DIFF REQ, RBC 3.16 L, MCV 83.1, MCH 27.2, RDW 23.3 H, MPV 6.8 L, Gran % 83.4 H, Lymphocytes % 9.0 L, Monocytes % 7.6, Eosinophils % 0, Basophils % 0, Absolute Granulocytes 7.7 H, Absolute Lymphocytes 0.8 L, Absolute Monocytes 0.7 H, Absolute Eosinophils 0, Absolute Basophils 0, PUBS MCHC 32.7 L Microbiology 06/12 1548 URINE ROUT: Urine Culture - COLB Assessment/Plan Assessment: 71-year-old female with past medical history of hypothermia, hyponatremia, vertigo, urinary incontinence, mild to moderate , CVA, CHF, DJD, bipolar disorder, schizoaffective disorder, chronic pedal edema, breast cancer s/p lumpectomy/radiation was brought in from short-term rehabilitation with a temperature recording of 100.3 and altered mental status strated yesterdy. Her H&H has dropped this morning to 7.4/22.3 Thrombocytosis * Patient is having thrombocytosis, probably reactionary to infection or severe anemia. * we will follow up with it. Health care associated pneumonia: * Continue Guafenisin * Continue tapering dose of steroid * Continue to follow off ABx as per ID * TRC * Strict aspiration precaution Enlarge thyroid compressing trachea * follow up with ENT as outpatient Decompensated CHF * Continue Lasix 40 mg po * Will follow Cardiology consult Chronic hyponatremia - recovered Severe anemia -DALE + Anemia of chronic disease; neg Guiac * Continue ferrous sulfate tablets Chronic medical problems bipolar disorder schizoaffective disorder * We continue home medications for bipolar and schizoaffective disorder Code status - full code DVT prophylaxis - Lovenox Diet - Chopped diet with thin liquids Problem List: 1. Hyponatremia syndrome 2. Pneumonia 3. CHF (congestive heart failure) Pain Ratin Pain Location: lowe legs Pain Goal: Remain pain free Pain Plan: avoid sedatives Tomorrow's Labs & Rationales: cbc, bep foir f/u DVT/Prophylaxis: mechanical, pharmacological Ayse GARCIA,Taye 06/13/17 1151: Attending Review Statement Attending Statement Attending MD Statement: examined this patient, discuss w/resident/PA/PHOTOENGRAVING ETCHER APPRENTICE, agreed w/resident/PA/PHOTOENGRAVING ETCHER APPRENTICE, reviewed EMR data (avail), discussed with nursing, amended to note Attending Assessment/Plan: Patient seen and examined. No events overnight. Denies chest pain or cough. Denies shortness of breath. She remains afebrile and hemodynamically stable. Nursing staff reports the patient is very deconditioned requiring significant assistance to be mobilized. On examination she is not in any acute distress. Heart sounds are regular. She has diminished breath sounds bilaterally with mild bibasilar crackles. Abdomen is soft and nontender. She has bilateral pedal edema. Recommendations: -Continue diuresis with Lasix 40 mg orally daily. -Continue prednisone taper. -Physical therapy evaluation -Begin discharge planning.
[2017-06-13 07:09] VITALS: BP 108/52
[2017-06-13 07:56] LABS: ABSOLUTE BASOPHIL COUNT 0 /CUMM (0.0-0.2); ABSOLUTE EOSINOPHIL COUNT 0 /CUMM (0.0-0.7); ABSOLUTE GRANULOCYTE CT 7.7 /CUMM (1.4-6.5); ABSOLUTE LYMPH COUNT 0.8 /CUMM (1.2-3.4); ABSOLUTE MONOCYTE COUNT 0.7 /CUMM (0.10-0.60); BASOPHIL % 0 % (0.0-2.0); EOSINOPHIL % 0 % (0-5); GRANULOCYTE % 83.4 % (42.2-75.2); HEMATOCRIT 26.2 % (37-47); MEAN CORPUSCULAR HGB 27.2 PG (27.0-31.0); MEAN CORPUSCULAR HGB CONC 32.7 G/DL (33.0-37.0); MEAN CORPUSCULAR VOLUME 83.1 FL (81.0-99.0); MEAN PLATELET VOLUME 6.8 FL (7.4-10.4); PLATELET COUNT 640 /CUMM (130-400); RBC DISTRIBUTION WIDTH 23.3 % (11.5-14.5); RED BLOOD CELL CT 3.16 /CUMM (4.20-5.40); WHITE BLOOD CELL COUNT 9.2 /CUMM (4.8-10.8)
--- NOTE | 2017-06-13 12:22 | PN- Pulmonary ---
Subjective HPI/Critical Care Issues: SLeeping today stable no new issues Objective Current Medications: Current Medications Sig/Courtney Start time Last Medication Dose Route Stop Time Status Admin Acetaminophen 650 MG .STK-MED ONE 06/12 1619 DC PO 06/12 1620 Acetaminophen 650 MG Q8P PRN 05/31 2215 AC 06/12 PO 1622 Albuterol Sulfate 3 ML EVERY 4 HRS/AWAKE 06/02 1999 AC 06/13 INH 1137 Aripiprazole 5 MG DAILY 06/01 1000 AC 06/13 PO 0846 Aripiprazole 2 MG DAILY 06/01 1000 AC 06/13 PO 0846 Bisacodyl 5 MG DAILY PRN 06/03 1245 AC PO Divalproex Sodium 250 MG QAM 06/01 1000 AC 06/13 PO 0846 Divalproex Sodium 500 MG AT BEDTIME 05/31 2230 AC 06/12 PO 2121 Enoxaparin Sodium 40 MG DAILY 06/05 1000 AC 06/13 SC 0847 Ferrous Sulfate 325 MG BID 06/01 2200 AC 06/13 PO 0846 Furosemide 40 MG DAILY 06/12 1000 AC 06/13 PO 0846 Guaifenesin/ 5 ML Q6P PRN 05/31 2230 AC 06/08 Dextromethorphan PO 0818 Melatonin 3 MG AT BEDTIME PRN 06/02 0300 AC 06/11 PO 0142 Methylprednisolone 30 MG Q12 06/11 2200 DC 06/12 IV 0848 Montelukast Sodium 10 MG DAILY 06/01 1000 AC 06/13 PO 0846 Omeprazole 40 MG DAILY AC 06/08 0918 AC 06/12 PO 0541 Polyethylene Glycol 17 GM DAILY PRN 06/03 1245 AC PO Potassium Chloride 20 MEQ BID 06/10 1000 AC 06/13 PO 0847 Prednisone 50 MG DAILY 06/12 1550 AC 06/13 PO 0847 Sodium Chloride 2 SPRAY Q2P PRN 06/07 2015 AC 06/08 RADHAMES 2218 Sodium Chloride 1 SPRAY 4 TIMES/DAY PRN 05/31 2230 AC 06/07 RADHAMES 2120 Tramadol HCl 50 MG Q8P PRN 05/31 2215 AC 06/12 PO 0848 Vital Signs & I&O Last 24 Hrs of Vitals and I&O: Vital Signs Date Time Temp Pulse Resp B/P B/P Pulse O2 O2 Flow FiO2 Mean Ox Delivery Rate 06/13 0835 95 Nasal 1.0L Cannula 06/13 0800 Nasal 1.0L Cannula 06/13 0709 98.6 86 20 108/52 97 Nasal Cannula 06/13 0000 Nasal 1.0L Cannula 06/12 2320 98.4 99 22 132/80 95 Nasal 1.0L Cannula 06/12 1646 98 Nasal 1.0L Cannula 06/12 1543 98.7 88 20 106/60 94 Nasal Cannula Intake & Output 06/13 1600 06/13 0800 06/13 0000 Intake Total 260 Output Total 100 Balance 160 Intake, Oral 260 Number 1 Bowel Movements Output, Urine 100 Patient 163 lb Weight Weight Polina Lift Measurement Method Impression/Plan Impression/Plan Impression/Plan: She appears comfortable in no acute distress, on 1 L of nasal oxygen Lungs bibasilar crackles and scattered rhonchi Heart regular rhythm with no murmur Abdomen is soft, nontender positive bowel sounds Extremities decreased edema all extremities Cheek catheter remains in place IMPRESSION 71 year old woman * Multifocal pna, likely aspiration, however she has findings of a large heterogeneous, multinodular thyroid gland exerting a mass effect upon the trachea and the thoracic inlet * Abx have been completed, no pleural effusion on lung ultrasound * improved decompensated chf (diastolic) * Improving hypoxemic respiratory failure - will d/w RT to try ventimask and reduce fio2 as tolerated Plan -off abx per ID -outpatient ENT follow up (thyroid) maybe contributing -Po steroids and wean -cont diuresis per cardiology
[2017-06-13 14:48] VITALS: BP 100/58
[2017-06-13 23:05] VITALS: BP 128/80
[2017-06-14 06:50] VITALS: BP 130/78
--- NOTE | 2017-06-14 07:27 | PN- Housestaff ---
See Addendum Subjective Follow-up For: f/u decompesated CHF ? multilobar pneumonia thyroid induced tracheal obstruction Tele-Events Since Last Visit: Normal sinus rhythm with heart rate in 70s Subjective: Patient seen and examined. Easily arousable today are alert and oriented 3 offers no complaints reports some shortness of breath. Improving. Denies fevers chills and chest pain Review of Systems Constitutional: Reports: see HPI. Objective Last 24 Hrs of Vital Signs/I&O Vital Signs Date Time Temp Pulse Resp B/P B/P Pulse O2 O2 Flow FiO2 Mean Ox Delivery Rate 06/14 0937 Nasal 6.0L Cannula 06/14 0806 97 Nasal 1.0L Cannula 06/14 0650 98.7 98 20 130/78 96 Nasal Cannula 06/14 0000 Nasal 1.0L Cannula 06/13 2305 98.6 101 18 128/80 95 Nasal 1.0L Cannula 06/13 1640 98 Nasal 1.0L Cannula 06/13 1448 98.3 97 18 100/58 97 Room Air Intake & Output 06/14 1600 06/14 0800 06/14 0000 Intake Total 240 160 Output Total 300 Balance -60 160 Intake, Oral 240 160 Output, Urine 300 Physical Exam General Appearance: Alert, Oriented X3, Cooperative Cardiovascular: Normal S1, Normal S2 Lungs: bibasiler creackels more on left Abdomen: Normal Bowel Sounds, Soft Neurological: Normal Speech Extremities: b/l lower extremity edema Current Medications: Current Medications Sig/Courtney Start time Last Medication Dose Route Stop Time Status Admin Acetaminophen 650 MG Q8P PRN 05/31 2215 AC 06/14 PO 0558 Albuterol Sulfate 3 ML EVERY 4 HRS/AWAKE 06/02 2000 AC 06/14 INH 0802 Aripiprazole 5 MG DAILY 06/01 1000 AC 06/13 PO 0846 Aripiprazole 2 MG DAILY 06/01 1000 AC 06/13 PO 0846 Bisacodyl 5 MG DAILY PRN 06/03 1245 AC PO Divalproex Sodium 250 MG QAM 06/01 1000 AC 06/13 PO 0846 Divalproex Sodium 500 MG AT BEDTIME 05/31 2230 AC 06/13 PO 2041 Enoxaparin Sodium 40 MG DAILY 06/05 1000 AC 06/13 SC 0847 Ferrous Sulfate 325 MG BID 06/01 2200 AC 06/13 PO 2041 Furosemide 20 MG DAILY 06/14 1000 AC PO Furosemide 40 MG DAILY 06/12 1000 DC 06/13 PO 0846 Guaifenesin/ 5 ML Q6P PRN 05/31 2230 AC 06/08 Dextromethorphan PO 0818 Melatonin 3 MG AT BEDTIME PRN 06/02 0300 AC 06/11 PO 0142 Montelukast Sodium 10 MG DAILY 06/01 1000 AC 06/13 PO 0846 Omeprazole 40 MG DAILY AC 06/08 0918 AC 06/14 PO 0558 Polyethylene Glycol 17 GM DAILY PRN 06/03 1245 AC PO Potassium Chloride 20 MEQ BID 06/10 1000 AC 06/13 PO 2040 Prednisone 20 MG DAILY 06/20 1000 AC PO 06/21 1001 Prednisone 30 MG DAILY 06/18 1000 AC PO 06/19 1001 Prednisone 40 MG DAILY 06/16 1000 AC PO 06/17 1001 Prednisone 50 MG DAILY 06/14 1000 DC PO 06/22 0959 Prednisone 50 MG DAILY 06/14 1000 AC PO 06/15 1001 Prednisone 50 MG DAILY 06/12 1550 DC 06/13 PO 0847 Sodium Chloride 2 SPRAY Q2P PRN 06/07 2014 AC 06/08 RADHAMES 2218 Sodium Chloride 1 SPRAY 4 TIMES/DAY PRN 05/31 2229 AC 06/07 RADHAMES 2120 Tramadol HCl 50 MG Q8P PRN 05/31 221 AC 06/13 PO 204 Last 24 Hrs of Lab/Neo Results Last 24 Hrs of Labs/Mics: Laboratory Tests 06/14/17 0621: Anion Gap 8, Estimated GFR > 60, BUN/Creatinine Ratio 47.8 H, CBC w Diff NO MAN DIFF REQ, RBC 3.06 L, MCV 83.9, MCH 26.4 L, RDW 23.4 H, MPV 6.7 L, Gran % 73.6, Lymphocytes % 18.6 L, Monocytes % 7.1, Eosinophils % 0.5, Basophils % 0.2 , Absolute Granulocytes 6.9 H, Absolute Lymphocytes 1.7, Absolute Monocytes 0.7 H, Absolute Eosinophils 0, Absolute Basophils 0, PUBS MCHC 31.4 L Assessment/Plan Assessment: 71-year-old female with past medical history of hypothermia, hyponatremia, vertigo, urinary incontinence, mild to moderate , CVA, CHF, DJD, bipolar disorder, schizoaffective disorder, chronic pedal edema, breast cancer s/p lumpectomy/radiation was brought in from short-term rehabilitation with a temperature recording of 100.3 and altered mental status. Decompensated CHF- we are under the opinion that the patient's respiratory distress was likely secondary to decompensated CHF, which improved with diuresis. * In light of patient's increasing BUN 34 today we are going to decrease the dose of Lasix to 20 home dose. * Monitor BEP * Cheek has been discontinued. * Will follow Cardiology consult Thrombocytosis * Patient is having thrombocytosis, probably reactionary to severe anemia. * we will follow up with it.--improving Suspected Health care associated pneumonia: Patient remains afebrile with no white count * Continue Guafenisin/TRC * Continue tapering dose of steroid * Continue to follow off ABx as per ID * Strict aspiration precaution * Patient has passed swallow evaluation Enlarge thyroid compressing trachea * follow up with ENT as outpatient Chronic hyponatremia - recovered Severe anemia -DALE + Anemia of chronic disease; neg Guiac * Continue ferrous sulfate tablets Chronic medical problems bipolar disorder schizoaffective disorder * We continue home medications for bipolar and schizoaffective disorder Code status - full code DVT prophylaxis - Lovenox Diet - Chopped diet with thin liquids Problem List: 1. Altered mental status Pain Ratin Pain Location: n/a Pain Goal: Pain 4 or less Pain Plan: prn Tomorrow's Labs & Rationales: as ordered
[2017-06-14 08:36] LABS: ABSOLUTE BASOPHIL COUNT 0 /CUMM (0.0-0.2); ABSOLUTE EOSINOPHIL COUNT 0 /CUMM (0.0-0.7); ABSOLUTE GRANULOCYTE CT 6.9 /CUMM (1.4-6.5); ABSOLUTE LYMPH COUNT 1.7 /CUMM (1.2-3.4); ABSOLUTE MONOCYTE COUNT 0.7 /CUMM (0.10-0.60); BASOPHIL % 0.2 % (0.0-2.0); EOSINOPHIL % 0.5 % (0-5); GRANULOCYTE % 73.6 % (42.2-75.2); HEMATOCRIT 25.7 % (37-47); MEAN CORPUSCULAR HGB 26.4 PG (27.0-31.0); MEAN CORPUSCULAR HGB CONC 31.4 G/DL (33.0-37.0); MEAN CORPUSCULAR VOLUME 83.9 FL (81.0-99.0); MEAN PLATELET VOLUME 6.7 FL (7.4-10.4); PLATELET COUNT 572 /CUMM (130-400); RBC DISTRIBUTION WIDTH 23.4 % (11.5-14.5); RED BLOOD CELL CT 3.06 /CUMM (4.20-5.40); WHITE BLOOD CELL COUNT 9.3 /CUMM (4.8-10.8)
--- NOTE | 2017-06-14 08:55 | Patient Discharge Instructions ---
Discharge Instructions General Discharge Information You were seen/treated for: CONGESTIVE HEART FAILURE Watch for these problems: fever, chills, shortness of breath, chest pain, increasing lower extremity swelling, confusion Special Instructions: please follow up with PCP after discharge please follow up with your heart doctor within 1 week of discharge Diet Recommended Diet: Heart Healthy Activity Activity Self Limited: Yes Acute Coronary Syndrome Inclusion Criteria At DC or during hospital stay patient has or had the following: ACS DIAGNOSIS No Discharge Core Measures Meds if any: Prescribed or Continued at Discharge Meds if any: NOT Prescribed or Continued at Discharge Congestive Heart Failure Inclusion Criteria At DC or during hospital stay patient has or had the following: CHF DIAGNOSIS No Discharge Core Measures Meds if any: Prescribed or Continued at Discharge Meds if any: NOT Prescribed or Continued at Discharge Cerebrovascular accident Inclusion Criteria At DC or during hospital stay patient has or had the following: CVA/TIA Diagnosis No Discharge Core Measures Meds if any: Prescribed or Continued at Discharge Meds if any: NOT Prescribed or Continued at Discharge Venous thromboembolism Inclusion Criteria VTE Diagnosis No VTE Type NONE VTE Confirmed by (Test) NONE Discharge Core Measures - Per Current guidelines, there needs to be overlap - treatment for the first 5 days of Warfarin therapy. - If discharged on Warfarin prior to 5 days of - overlap therapy, the patient will need to be - assessed for post discharge needs including - *Post discharge parental anticoagulation - *Warfarin and/or parental anticoagulation education - *Follow up date to check INR post discharge At least 5 days overlap therapy as Inpatient No Meds if any: Prescribed or Continued at Discharge Note: Overlap Therapy is Warfarin and Anticoagulant Meds if any: NOT Prescribed or Continued at Discharge
[2017-06-14] MEDS ORDERED: MIRALAX119 GM PO (09:41)
[2017-06-14] MEDS ORDERED: PREDNISONE10 M2 PO (09:41)
[2017-06-14] MEDS ORDERED: BISACODYL5 M1 PO (09:41)
[2017-06-14] MEDS ORDERED: FERROUS SULFAT325 M2 PO (09:41)
--- NOTE | 2017-06-14 13:39 | PN- Pulmonary ---
Subjective HPI/Critical Care Issues: pt seen and examined no events not in distress Objective Current Medications: Current Medications Sig/Courtney Start time Last Medication Dose Route Stop Time Status Admin Acetaminophen 650 MG .STK-MED ONE 06/14 526 DC PO 06/14 05 Acetaminophen 650 MG Q8P PRN 05/31 2215 AC 06/14 PO 1219 Albuterol Sulfate 3 ML EVERY 4 HRS/AWAKE 06/02 1999 AC 06/14 INH 1152 Aripiprazole 5 MG DAILY 06/01 1000 AC 06/14 PO 1000 Aripiprazole 2 MG DAILY 06/01 1000 AC 06/14 PO 1000 Bisacodyl 5 MG DAILY PRN 06/03 1245 AC PO Divalproex Sodium 250 MG QAM 06/01 1000 AC 06/14 PO 1000 Divalproex Sodium 500 MG AT BEDTIME 05/31 2230 AC 06/13 PO 2041 Enoxaparin Sodium 40 MG DAILY 06/05 1000 AC 06/14 SC 1000 Ferrous Sulfate 325 MG BID 06/01 2200 AC 06/14 PO 1000 Furosemide 20 MG DAILY 06/14 1000 AC 06/14 PO 1000 Furosemide 40 MG DAILY 06/12 1000 DC 06/13 PO 0846 Guaifenesin/ 5 ML Q6P PRN 05/31 2230 AC 06/08 Dextromethorphan PO 0818 Melatonin 3 MG AT BEDTIME PRN 06/02 0300 AC 06/11 PO 0142 Montelukast Sodium 10 MG DAILY 06/01 1000 AC 06/14 PO 1000 Omeprazole 40 MG DAILY AC 06/08 0918 AC 06/14 PO 0558 Polyethylene Glycol 17 GM DAILY PRN 06/03 1245 AC PO Potassium Chloride 20 MEQ BID 06/10 1000 AC 06/14 PO 1000 Prednisone 20 MG DAILY 06/20 1000 AC PO 06/21 1001 Prednisone 30 MG DAILY 06/18 1000 AC PO 06/19 1001 Prednisone 40 MG DAILY 06/16 1000 AC PO 06/17 1001 Prednisone 50 MG DAILY 06/14 1000 DC PO 06/22 0959 Prednisone 50 MG DAILY 06/14 1000 AC 06/14 PO 06/15 1001 1000 Sodium Chloride 2 SPRAY Q2P PRN 06/07 2015 AC 06/08 RADHAMES 2218 Sodium Chloride 1 SPRAY 4 TIMES/DAY PRN 05/31 2230 AC 06/07 RADHAMES 2120 Tramadol HCl 50 MG Q8P PRN 05/31 2215 AC 06/14 PO 1220 Vital Signs & I&O Last 24 Hrs of Vitals and I&O: Vital Signs Date Time Temp Pulse Resp B/P B/P Pulse O2 O2 Flow FiO2 Mean Ox Delivery Rate 06/14 1324 95 Nasal 1.0L Cannula 06/14 0937 Nasal 6.0L Cannula 06/14 0806 97 Nasal 1.0L Cannula 06/14 0800 96 Nasal 1.0L Cannula 06/14 0650 98.7 98 20 130/78 96 Nasal Cannula 06/14 0000 Nasal 1.0L Cannula 06/13 2305 98.6 101 18 128/80 95 Nasal 1.0L Cannula 06/13 1640 98 Nasal 1.0L Cannula 06/13 1448 98.3 97 18 100/58 97 Room Air Intake & Output 06/14 1600 06/14 0800 06/14 0000 Intake Total 240 160 Output Total 300 Balance -60 160 Intake, Oral 240 160 Output, Urine 300 Exam Other Physical Findings: Generally - awake, comfortable Head and neck - ncat Cardiovascular - S1, S2 Lungs - rare scattered rhonchi Abdomen - Bowel sounds positive Extremities - bilateral edema Results Last 24 Hrs of Lab Results: Laboratory Tests 06/14/17 0621: Anion Gap 8, Estimated GFR > 60, BUN/Creatinine Ratio 47.8 H, CBC w Diff NO MAN DIFF REQ, RBC 3.06 L, MCV 83.9, MCH 26.4 L, RDW 23.4 H, MPV 6.7 L, Gran % 73.6, Lymphocytes % 18.6 L, Monocytes % 7.1, Eosinophils % 0.5, Basophils % 0.2 , Absolute Granulocytes 6.9 H, Absolute Lymphocytes 1.7, Absolute Monocytes 0.7 H, Absolute Eosinophils 0, Absolute Basophils 0, PUBS MCHC 31.4 L Impression/Plan Impression/Plan Impression/Plan: Impression 71 year old woman * multifocal pna, likely aspiration, however she has findings of a large heterogeneous, multinodular thyroid gland exerting a mass effect upon the trachea and the thoracic inlet Plan -completed abx -ENT issue (thyroid) maybe contributing -f/u ENT as outpt -cont steroids for symptom relief for now with a taper as ordered DVT prophylaxis at all times
[2017-06-14 14:05] VITALS: BP 130/78
--- NOTE | 2017-06-14 14:07 | Discharge Summary ---
Visit Information Visit Dates Admission Date: 06/03/17 Discharge Date: 06/14/2017 Hospital Course Course Attending Physician: Taye Tavera MD Primary Care Physician: Wilfredo Luque MD Hospital Course: 71 yo F with h/o recurrent hypothermia, chronic hyponatremia, HfpEF, mild- moderate , schizoaffective disorder, was recently discharged from [place] (May 23) after being treated for hyponatremia, ?groundglass opacities so started on Doxycycline (although no definitive evidence of pneumonia), is brought in from [facility] for evaluation of fever, confusion, lethargy and cough. Tmax 100.2 at the facility. Par family patient is well oriented at baseline but for past 24 hours she is only oriented to person. On our evaluation, patient stated being at [facility] and did not know the date. Patient did not offer any other complaints. ED course - Vitals -Tmax 100.8, HR 60-90's, BP 104/42;90/40;63/40;112/62, sats 96% on 2L. Exam: awake, alert, oriented to person but not place or time, dry mucous membranes, flat affect, Chest clear, Heart S1 S2 regular. LE: edema+. Labs: no leukocytosis, H/H 9.5/28.2 (baseline), Na 142, bicarb 32, BUN 21, trop neg. EKG: SR. TWI V4-6 (new). UA neg. CXR: no significant change. Head CT stable. Echo (2017): EF 60-65%. AMS and Acute hypoxic failure suspected secondary to Multilobar pneumonia (HCAP) Her Chest x-ray revealed bibasilar airspace disease, unchanged from her previous x-ray. CT of the head was negative for any acute process.She was admitted to the ICU. She was initially followed off antibiotics. Her blood pressure dropped overnight to 63/40, for which she received IV fluids, with improvement in her blood pressure. On June [address] of the chest, abdomen and pelvis which revealed multifocal airspace disease within the right upper lobe and both lower lobes, and she was begun on Unasyn. She defervesced after admission and as her white blood cell count remained normal. Though she started having shortness of breath, which was presumably secondary to CHF as she was afebrile. We took ID , pulmonology and cardiology consult who started her on Vanco /Cipro, prednisone and IV lasix.It was also thought as she has large multinodular thyroid that can compress trachea which lead to her shortness of breath. She remained afebrile on Vanco and ciprofloxacin x 1week. As all her cultures were negative, urine for Legionella and strep pneumo was negative and she was not showing any blood count , so it was decided to stop the antibiotic and continue her swallowing off antibiotic. Pulmonology consult was placed and advised for short course of tapering dose of steroid, which we continued at the time of discharge. She passed a bedside swallowing evaluation and started on normal diet. Decompensated CHF, stage I diastolic dysfunction,LVEF 75% Her ProBNP 7270. We obtained a cardiology consult and gave IV Lasix and regularly monitored electrolytes panel. We discharge her on tab Lasix 20 mgs daily and advised to follow-up with student nurse for further management of CHF and diuresis. We advised to check the body weight daily and if there is any change than he is a talk to the PCP . We also advised to follow the CHF clinic. Reactionary Thrombocytosis Patient is having thrombocytosis, probably reactionary to severe anemia and infection. Now improving, platelet count at time of discharge was 572. Enlarge thyroid compressing trachea Advised to follow up with ENT as outpatient Chronic hyponatremia; multifactorial - Medication/SIADH - recovered Treated by fluid restriction. We advised her to follow-up with the PCP for regular serum sodium measurment as needed. Serum Na at time of dicahrge was 145 Severe anemia -DALE + Anemia of chronic disease; neg Guiac We advised to continue ferrous sulfate tablets Chronic medical problems bipolar disorder schizoaffective disorder We continue home medications for bipolar and schizoaffective disorder Allergies: Coded Allergies: Sulfa (Sulfonamide Antibiotics) (Intermediate, FACIAL EDEMA 10/16/16) azithromycin (Intermediate, THROAT CLOSURE 10/16/16) egg (Intermediate, SWOLLEN RED EYES 10/16/16) lactose (Mild, unknown 06/07/17) atorvastatin (UNKNOWN 10/16/16) cephalexin (From KEFLEX) (UNKNOWN 05/31/17) ciprofloxacin (ANXIETY 10/16/16) Disposition Summary Disposition Principal Diagnosis: AMS and Acute hypoxic failure possibly secondary to Multilobar pneumonia(HCAP) Decompensated CHF Additional Diagnosis: Recurrent hypothermia Chronic hyponatremia HfpEF, mild-moderate Schizoaffective disorder Status post cholecystectomy Bilateral thyroid nodule Fat-containing umbilicus hernia Goiter, status post radioactive iodine Breast cancer status post right lumpectomy and radiation Discharge Disposition: SNF Discharge Instructions General Discharge Information Code Status: Full Code Patient's Diet: Heart healthy diet Patient's Activity: As tolerated, take all fall precautions Follow-Up Instructions/Appts: Please take an appointment to your PCP for further management and evaluation of altered mental status. Please follow-up with the water fabricator operator for further evaluation and management of multilobar pneumonia. Please follow-up with student nurse for further evaluation and management of the CHF Medications at Discharge Discharge Medications: Stop taking the following medications: [Sodium cloride] 2 GM TAB ORAL DAILY Continue taking these medications: Potassium Chloride (Potassium Chloride) 20 MEQ TAB.ER.PRT 1 Tablet ORAL DAILY Comments: NOT GIVEN Aspirin (Aspirin*) 81 MG TAB.CHEW 1 Tablet ORAL DAILY Comments: Last Taken: 04/17/17 Time: 0945 Furosemide (Lasix) 40 MG TABLET 0.5 Tablet ORAL Every Morning Comments: Last Taken: 05/23/17 Time: 8:30AM Divalproex Sodium (Divalproex Sodium) 500 MG TABLET.DR 1 Tablet ORAL TAKE AT BEDTIME Qty = 180 Comments: Last Taken: 05/22/17 Time: 9:18PM Aripiprazole (Abilify) 2 MG TABLET 7 Milligram ORAL DAILY Comments: Last Taken: 05/23/17 Time: 8:30AM Rosuvastatin Calcium (Crestor) 5 MG TABLET 5 Milligram ORAL TAKE AT BEDTIME Qty = 90 Comments: NOT GIVEN Montelukast Sodium (Montelukast Sodium) 10 MG TABLET 10 Milligram ORAL DAILY Qty = 30 Comments: Last Taken: 05/23/17 Time: 8:30AM Divalproex Sodium (Divalproex Sodium) 250 MG TABLET.DR 1 Tablet ORAL Every Morning Qty = 30 Comments: Last Taken: 05/23/17 Time: 8:30AM Lactase (Lactaid) (Unknown Strength) TABLET 1 Tablet ORAL As Directed as needed for LACTOSE INTOLERANT Qty = 30 Comments: NOT GIVEN Sodium Chloride (Saline Nasal [place]) 0.65 % SPRAY 1 [place] Both sides of nose 4 TIMES A DAY as needed for ALLERGIES Diclofenac Sodium (Voltaren) 1 % GEL..GRAM. 1 Gram On the skin 4 TIMES A DAY Instructions: apply to affected area(s) Guaifenesin/Dextromethorphan (Guaifenesin Dm Syrup) 100 MG-10 MG/5 ML SYRUP 1 Teaspoonful ORAL EVERY 6 HOURS NEEDED as needed for COUGH [LACTAID] (Unknown Strength) TAB Unknown Dose ORAL DAILY Start taking the following new medications: Ferrous Sulfate (Ferrous Sulfate) 325 MG (65 MG IRON) TABLET.DR 1 Tablet ORAL TWICE DAILY Qty = 30 No Refills Bisacodyl (Bisacodyl) 5 MG TABLET.DR 1 Milligram ORAL DAILY as needed for CONSTIPATION Qty = 30 No Refills Polyethylene Glycol 3350 (Miralax) 17 GRAM/DOSE POWDER 1 Dose ORAL DAILY as needed for CONSTIPATION Qty = 1 No Refills Prednisone (Prednisone) 10 MG TABLET 0 ORAL DAILY Qty = 25 No Refills Comments: 10MG 5 TABS ON 06/15 10MG 4 TABS ON 06/16-06/17 10MG 2 TABS ON 06/18-06/19 10MG 1 TABS ON 06/20-06/21 Copies To: Valente GARCIA PHD,Gil Ni; Rebel GARCIA,Wilfredo De Santiago Attending MD Review Statement Documenting Attending: Ayse GARCIA,Taye
== END 2017-06-14 16:09 | DRG 177 ==
LOC: ERH 16:58 → ERHI 20:19 → ENTRNSPT 21:23 → EDTRNSPTSTS 21:39 → 2NB 21:49 → CMPTRNSPT 22:02 → 2NB 06-01 10:23 → CRI 06-03 13:42 → 2NB 06-03 13:42 → CRI 06-07 17:00 → ENTRNSPT 06-11 15:00 → 1NO 06-11 15:45 → CMPTRNSPT 06-11 15:56 → 1NO 06-13 08:34 → ENPENDDIS 06-14 12:58 → 1NO 06-14 16:09
PROVIDERS: Internal Medicine Adolescent Medicine; Internal Medicine Endocrinology, Diabetes & Metabolism; Physician Assistant Medical; Radiology Vascular & Interventional Radiology; Student in an Organized Health Care Education/Training Program
DX: J69.0 Pneumonitis due to inhalation of food and vomit (principal); J96.01 Acute respiratory failure with hypoxia; I50.33 Acute on chronic diastolic (congestive) heart failure; E22.2 Syndrome of inappropriate secretion of antidiuretic hormone; I50.30 Unspecified diastolic (congestive) heart failure; E87.1 Hypo-osmolality and hyponatremia; N39.0 Urinary tract infection, site not specified; D50.9 Iron deficiency anemia, unspecified; E66.9 Obesity, unspecified; Z68.33 Body mass index [BMI] 33.0-33.9, adult; E04.9 Nontoxic goiter, unspecified; J39.8 Other specified diseases of upper respiratory tract; R68.0 Hypothermia, not associated with low environmental temperature; I35.0 Nonrheumatic aortic (valve) stenosis; F25.9 Schizoaffective disorder, unspecified; D63.8 Anemia in other chronic diseases classified elsewhere; R42 Dizziness and giddiness; R32 Unspecified urinary incontinence; Z85.3 Personal history of malignant neoplasm of breast; Z92.3 Personal history of irradiation
CPT/HCPCS: 1NSP; 2NBSP; CCU; 36415; 71045; 71046; 74177; 81001; 82436; 83010; 86920; 86922; 87040; 87070; 87086; 87449; 87450; 87804; 87804-59; 92610-GN; 93005; 93010; 93306; 97110-GO; 97116-GO; 97161-GP; 97164-GP; 97530-GO; 97530-GP; G8978-GP; G8979-GP; G8996-GN; G8997-GN; G8998-GN; J1644; J1650; J1720; J1940; J2920; J3370; J3490; J7040; J7042

== ENCOUNTER 2017-11-03 02:55 | Inpatient (IN) | payer OTHER, MEDICARE ==
[~2017-11-03] VITALS: Ht 149.9 cm; Wt 78.2 kg
[~2017-11-03 02:55] MED LIST changes: +BISACODYL5 M1 PO; +FERROUS SULFAT325 M2 PO; +LACTAID PO; +MIRALAX119 GM PO; +PREDNISONE10 M2 PO; +SODIUM CLORIDE PO
--- NOTE | 2017-11-03 03:02 | ED DYSPNEA/ASTHMA COMPLAINT ---
See Addendum History of Present Illness General Chief Complaint: Dyspnea (COPD, CHF, Other) Stated Complaint: SOB Source: old records, EMS Exam Limitations: patient's age, not alert/orientated, clinical condition Vital Signs & Intake/Output Vital Signs & Intake/Output Vital Signs Date Time Temp Pulse Resp B/P B/P Pulse O2 O2 Flow FiO2 Mean Ox Delivery Rate 11/03 0525 92 Nasal 6.0L Cannula 11/03 0504 70 28 158/72 93 Nasal 6.0L Cannula 11/03 0400 93 Non 100% ReBreather 11/03 0258 74 32 123/58 96 Non 10L ReBreather Allergies Coded Allergies: Sulfa (Sulfonamide Antibiotics) (Intermediate, FACIAL EDEMA 10/16/16) azithromycin (Intermediate, THROAT CLOSURE 10/16/16) egg (Intermediate, SWOLLEN RED EYES 10/16/16) lactose (Mild, unknown 06/07/17) atorvastatin (UNKNOWN 10/16/16) cephalexin (From KEFLEX) (UNKNOWN 05/31/17) ciprofloxacin (ANXIETY 10/16/16) Reconcile Medications Aripiprazole (Abilify) 2 MG TABLET 7 MG PO DAILY MENTAL HEALTH (Reported) Aspirin (Aspirin*) 81 MG TAB.CHEW 1 TAB PO DAILY HEART HEALTH (Reported) Bisacodyl 5 MG TABLET.DR 1 MG PO DAILY PRN CONSTIPATION Diclofenac Sodium (Voltaren) 1 % GEL..GRAM. 1 GM TOP 4 TIMES/DAY PAIN ( Reported) apply to affected area(s) Divalproex Sodium 500 MG TABLET.DR 1 TAB PO [facility] (Reported) Divalproex Sodium 250 MG TABLET.DR 1 TAB PO [facility] (Reported) Ferrous Sulfate 325 MG (65 MG IRON) TABLET.DR 1 TAB PO BID ANEMIA Furosemide (Lasix) 40 MG TABLET 0.5 TAB PO QAM CHF (Reported) Guaifenesin/Dextromethorphan (Guaifenesin Dm Syrup) 100 MG-10 MG/5 ML SYRUP 1 TSP PO Q6-PRN PRN COUGH (Reported) [LACTAID] (Unknown Strength) TAB (Unknown Dose) PO DAILY LACTOSE INTOLERANT ( Reported) Lactase (Lactaid) (Unknown Strength) TABLET 1 TAB PO AD PRN LACTOSE INTOLERANT (Reported) Montelukast Sodium 10 MG TABLET 10 MG PO DAILY ALLERGIES (Reported) Polyethylene Glycol 3350 (Miralax) 17 GRAM/DOSE POWDER 1 DOSE PO DAILY PRN CONSTIPATION Potassium Chloride 20 MEQ TAB.ER.PRT 1 TAB PO DAILY SUPPLEMENT (Reported) Prednisone 10 MG TABLET 0 PO DAILY STERIOD TAPER Rosuvastatin Calcium (Crestor) 5 MG TABLET 5 MG PO QHS CHOLESTROL (Reported) Sodium Chloride (Saline Nasal [place]) 0.65 % SPRAY 1 SPRAY NASB 4 TIMES/DAY PRN ALLERGIES (Reported) Triage Nurses Notes Reviewed? yes Onset: Gradual Duration: day(s): Timing: recent history Severity: moderate Activities at Onset: none Prior Episodes/Possible Cause: occasional episodes Modifying Factors: Improves With: other. Associated Symptoms: cough HPI: 72 yo woman, h/o chf and pneumonia, from a fci found on evening rounds with increased work of breathing, 02 sat 88% on 2l nc ( pt is usually on room air). CXR done yesterday evening was equivocal for chf. Labs last night were benign. Due to her not feeling better, and her low 02 sat, she was referred to the ED. Past History Travel History Traveled to [place] past 21 day No Medical History Any Pertinent Medical History? 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 No Review of Systems Review of Systems Constitutional: Denies: see HPI. Physical Exam Physical Exam Respiratory: rhonchi Comments: Review of Systems - except as otherwise noted in HPI Review of Systems Constitutional:no symptoms. EENTM:no symptoms. Respiratory:no symptoms. Cardiovascular:no symptoms. GI:no symptoms. Genitourinary:no symptoms. Musculoskeletal:no symptoms. Skin:no symptoms. Neurological/Psychological:no symptoms. Hematologic/Endocrine:no symptoms. Immunologic/Allergic:no symptoms. All Other Systems: Reviewed and Negative Physical Exam Physical Exam General Appearance: well developed/nourished, no apparent distress Head: atraumatic, normal appearance Eyes: Bilateral: normal appearance. Ears, Nose, Throat: normal pharynx, normal ENT inspection Neck: normal inspection, supple, full range of motion Respiratory: bilateral rhonchi, no crackles, no accessory muscle use. Cardiovascular: regular rate/rhythm Gastrointestinal: normal bowel sounds, soft, non-tender, no organomegaly Back: normal inspection, normal range of motion Extremities: normal inspection, normal capillary refill, normal range of motion, no edema Neurologic/Psych: no motor/sensory deficits, awake, alert, oriented x 3 Skin: intact, normal color, warm/dry Core Measures ACS in differential dx? No CVA/TIA Diagnosis No Sepsis Present: No Sepsis Focused Exam Completed? No Progress Differential Diagnosis: asthma, bronchitis, CHF, COPD Plan of Care: Orders Procedure Date/time Status ARTERIAL BLOOD GAS (GEN) 11/03 0500 Complete DEPAKOTE LEVEL 11/03 0322 Complete TROPONIN LEVEL 11/03 0301 Complete LIPASE 11/03 0301 Complete HEPATIC FUNCTION PANEL 11/03 0301 Complete D-DIMER 11/03 0301 Complete CBC WITHOUT DIFFERENTIAL 11/03 0301 Complete BASIC METABOLIC PANEL 11/03 0301 Complete AMYLASE 11/03 0301 Complete EKG 11/03 0301 Active Current Medications Sig/Courtney Start time Last Medication Dose Stop Time Status Admin Ciprofloxacin 500 MG ONCE ONE 11/03 06 UNVr (Cipro) 11/03 0616 Laboratory Tests 11/03/17 0530: pH 7.41, pCO2 49 H, pO2 100, HCO3 31 H, ABG O2 Sat (Measured) 97.0, P-50 (Temp Corrected) N, Carboxyhemoglobin 0.3 L, O2 Concentration % 6L, O2 Delivery Method N/C, Phlebotomy Draw Site LEFT RADIAL 11/03/17 0410: Anion Gap 9, Estimated GFR > 60, BUN/Creatinine Ratio 20.0, Glucose 60 L, Calcium 9.4, Total Bilirubin 0.4, Direct Bilirubin 0.2, AST 19, ALT 29, Alkaline Phosphatase 85, Troponin I < 0.01, Total Protein 5.9 L, Albumin 2.8 L, Amylase 107, Lipase 18 L, Valproic Acid 56.9 11/03/17 0322: D-Dimer High Sensitivty 223, CBC w Diff MAN DIFF ORDERED, RBC 3.41 L, MCV 84.1, MCH 28.4, MCHC 33.7, RDW 20.7 H, MPV 8.3 11/03/17 0311: Valproic Acid Cancelled Diagnostic Imaging: Viewed by Me: Radiology Read. Discussed w/RAD: Radiology Read. CXR Impression: PATIENT: BUD ESPINOSA PRESENT AGE : 72 PATIENT ACCOUNT NO: [id number] : 43 LOCATION: [facility] ORDERING PHYSICIAN: Jamie Patrick MD SERVICE DATE: 11/03/17 EXAM TYPE: RAD - XRY-PORTABLE CHEST XRAY EXAMINATION: XR PORTABLE CHEST CLINICAL INFORMATION: Chest pain COMPARISON: 06/10/2017 TECHNIQUE: Portable frontal view of the chest was obtained. FINDINGS: The lungs are hypoinflated which limits evaluation. Bibasilar airspace opacities are present. Small pleural effusions cannot be excluded. No appreciable pneumothorax. The cardiac silhouette is prominent and may be accentuated by low lung volumes. Calcification is present at the aortic arch. No acute osseous findings are seen. IMPRESSION: Hypoinflated lungs which limits evaluation. Bibasilar airspace opacities, which could reflect atelectasis in the setting of low lung volumes, though consolidation cannot be excluded. Small pleural effusions may be present. DICTATED BY: Grant Fontaine MD DATE/TIME DICTATED:11/03/17407 COMMERCIAL GREEN RETROFIT ARCHITECT:NAA DATE/TIME TRANSCRIBED:11/03/17407 CONFIDENTIAL, DO NOT COPY WITHOUT APPROPRIATE AUTHORIZATION. <Electronically signed in Other Vendor System> SIGNED BY: Grant Fontaine MD 11/03/17 0414 Initial ED EKG: sinus rhythm, no acute changes Departure Departure Disposition: STILL A PATIENT Condition: Stable Clinical Impression Primary Impression: Pneumonia Referrals: Rebel GARCIA,Wilfredo De Santiago (PCP/Family) Departure Forms: Customer Survey General Discharge Information Admission Note Spoke With: Joellen Isidro MD Documentation of Exam: Documentation of any treatments & extenuating circumstances including Concerns Regarding Discharge (functional status, medication knowledge or non-compliance, living conditions, etc.) that warrant an admission rather than observation: Pt with rhonchi, hypoxia, h/o pneumonia from ecf, now with wbc 1.8... most consistent with pneumonia, will cover broadly in light of recent neutropenia... vancomycin, clinda, cipro (pt has sensitivity to cephalosporins). pt stable for gen med. Critical Care Note Critical Care Note Critical Care Time: non-applicable
[2017-11-03 03:30] LABS: HEMATOCRIT 28.6 % (37-47); MEAN CORPUSCULAR HGB 28.4 PG (27.0-31.0); MEAN CORPUSCULAR HGB CONC 33.7 G/DL (33.0-37.0); MEAN CORPUSCULAR VOLUME 84.1 FL (81.0-99.0); MEAN PLATELET VOLUME 8.3 FL (7.4-10.4); RBC DISTRIBUTION WIDTH 20.7 % (11.5-14.5); RED BLOOD CELL CT 3.41 /CUMM (4.20-5.40)
[2017-11-03 03:41] LABS: PLATELET COUNT 163 /CUMM (130-400)
[2017-11-03 03:42] LABS: WHITE BLOOD CELL COUNT 1.8 /CUMM (4.8-10.8)
--- NOTE | 2017-11-03 04:14 | RADIOLOGY REPORT ---
EXAMINATION: XR PORTABLE CHEST CLINICAL INFORMATION: Chest pain COMPARISON: 06/10/2017 TECHNIQUE: Portable frontal view of the chest was obtained. FINDINGS: The lungs are hypoinflated which limits evaluation. Bibasilar airspace opacities are present. Small pleural effusions cannot be excluded. No appreciable pneumothorax. The cardiac silhouette is prominent and may be accentuated by low lung volumes. Calcification is present at the aortic arch. No acute osseous findings are seen. IMPRESSION: Hypoinflated lungs which limits evaluation. Bibasilar airspace opacities, which could reflect atelectasis in the setting of low lung volumes, though consolidation cannot be excluded. Small pleural effusions may be present.
[2017-11-03] MEDS ORDERED: FERROUS SULFAT325 M3 PO (08:04)
[2017-11-03] MEDS ORDERED: BIOTIN5 M1 PO (08:06)
[2017-11-03] MEDS ORDERED: PAIN RELIEF650 MG PO (08:08)
--- NOTE | 2017-11-03 10:20 | History & Physical ---
Obey GARCIA,Sushant 11/03/17 0946: General Information and HPI History of Present Illness: 72 year old woman with past medical history of HFpEF, mild-moderate aortic stenosis, schizoaffective disoder, bipolar disoder, chronic UTI, breast cancer s /p right lumpectomy, "recurrent hypothermia", and CVA sent in from [facility] for progressively worsening weakness, shortness of breath, and hypoxia. Patient is somnolent / lethargic / obtunded and is unable give give subjective complaints or review of systems. Collateral information obtained from nursing line service supervisor and W [facility] reveal that patient at baseline is awake, alert, and conversative. She is an assist of 2 and requires a wheelchair for ambulation. Over the past several days she was seen to be more tired. She was seen to be short of breath last evening for which she was placed on 4L o2 via nasal cannula. O2 Sat was 88%, for which CBC and chest xray were ordered. CXR demonstrated right upper lobe airspace disease, possibly edema with recommendation to obtain CT to "exclude neoplasm". CBC demonstrated WBC 5.1 / Bands 5, BNP was normal. Daughter could not be reached at phone number on chart. Patient is reportedly a full code with no advanced directive. Allergies/Medications Allergies: Coded Allergies: Sulfa (Sulfonamide Antibiotics) (Intermediate, FACIAL EDEMA 10/16/16) azithromycin (Intermediate, THROAT CLOSURE 10/16/16) egg (Intermediate, SWOLLEN RED EYES 10/16/16) lactose (Mild, unknown 06/07/17) atorvastatin (UNKNOWN 10/16/16) cephalexin (From KEFLEX) (UNKNOWN 05/31/17) ciprofloxacin (ANXIETY 10/16/16) Home Med list Acetaminophen (Pain Relief) 650 MG TABLET.ER 1 TAB PO DAILY PAIN (Reported) Aripiprazole (Abilify) 2 MG TABLET 7 MG PO DAILY MENTAL HEALTH (Reported) Aspirin (Aspirin*) 81 MG TAB.CHEW 1 TAB PO DAILY HEART HEALTH (Reported) Biotin 5 MG CAPSULE 1 CAP PO QPM UNKNOWN (Reported) Divalproex Sodium 250 MG TABLET.DR 1 TAB PO QAM MENTAL HEALTH (Reported) Divalproex Sodium 500 MG TABLET.DR 1 TAB PO QPM MENTAL HEALTH (Reported) Ferrous Sulfate 325 MG (65 MG IRON) TABLET 1 TAB PO QPM IRON, VITAMIN ( Reported) Furosemide (Lasix) 40 MG TABLET 0.5 TAB PO QAM CHF (Reported) Montelukast Sodium 10 MG TABLET 10 MG PO DAILY ALLERGIES (Reported) Polyethylene Glycol 3350 (Miralax) 17 GRAM/DOSE POWDER 1 DOSE PO DAILY PRN CONSTIPATION Potassium Chloride 20 MEQ TAB.ER.PRT 1 TAB PO DAILY SUPPLEMENT (Reported) Rosuvastatin Calcium (Crestor) 5 MG TABLET 5 MG PO QHS CHOLESTROL (Reported) Past History Travel History Traveled to [place] past 21 day No Medical History Neurological: CVA, dizziness, vertigo EENT: allergies, CHRONIC SINUS PROBLEMS Cardiovascular: stage I diastolic congestive heart failure Respiratory: NONE Gastrointestinal: lactose intolerance Hepatic: NONE Renal: urinary incontinence, CHRONIC UTI Musculoskeletal: falls, degenerative knee arthritis "NO ROTATOR CUFF" R ARM Psychiatric: bipolar disease, schizophrenia Endocrine: iodine radiotherapy for GOITER Blood Disorders: NONE Cancer(s): BREAST CA (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 Extended Care Facility Who Do You Live With? self Primary Language: Spanish Living Will? no Functional Ability ADLs Needs Assist: dressing, eating, toileting, bathing. Ambulation: walker IADLs Needs Assist: shopping, housework, finances, food prep, telephone, transportation, medication admin. Review of Systems Review of Systems Constitutional: Reports: see HPI. Exam & Diagnostic Data Last 24 Hrs of Vital Signs/I&O Vital Signs Date Time Temp Pulse Resp B/P B/P Pulse O2 O2 Flow FiO2 Mean Ox Delivery Rate 11/03 0905 96.2 67 20 132/50 98 Nasal 6.0L Cannula 11/03 0719 95.1 11/03 0634 84 24 125/61 93 Nasal 6.0L Cannula 11/03 0525 92 Nasal 6.0L Cannula 11/03 0504 70 28 158/72 93 Nasal 6.0L Cannula 11/03 0400 93 Non 100% ReBreather 11/03 0345 94.0 11/03 0258 74 32 123/58 96 Non 10L ReBreather Intake & Output 11/03 1600 06/06 0800 06 0000 Intake Total 0 Output Total Balance 0 Intake, Oral 0 Physical Exam General Appearance Mild Distress, ill appearing elderly woman Skin No Rashes, No Breakdown, No Significant Lesion Skin Temp/Moisture Exam: Cool/Dry Sepsis Skin Exam (color): Pale HEENT Atraumatic, PERRLA, EOMI, Dry oral mucosa Neck Supple, No JVD Cardiovascular Regular Rate, Normal S1, Normal S2 Lungs Diffuse rhonchi with scattered crackles, audible gurgling Abdomen Normal Bowel Sounds, firm abdomen with palpable mass without guarding or rigidity Neurological AAOx0, not responsive to verbal / tactile stimuli Extremities 4+ bilateral pitting edema, 3"x1" abrasion with yellow discharge to left upper lateral saldana Vascular Normal Pulses, Pulses Symmetrical Sepsis Peripheral Pulse Location: Dorsalis Pedis Sepsis Peripheral Pulse Exam: Weak Sepsis Cap Refill Exam: >2 sec Last 24 Hrs of Labs/Neo: Laboratory Tests 11/03/17 0617: Urinalysis LIGHT H, Urine Color YEL, Urine Clarity HAZY H, Urine pH 6.0, Ur Specific Gilchrist 1.020, Urine Protein TRACE H, Urine Ketones 15 H, Urine Nitrite POS H, Urine Bilirubin NEG, Urine Urobilinogen 1.0, Ur Leukocyte Esterase MOD H, Ur Microscopic SEDIMENT EXAMINED, Urine RBC FEW H, Urine WBC 5 -10 H, Ur Epithelial Cells FEW, Urine Bacteria MANY H, Urine Hemoglobin SMALL H, Urine Glucose NEG 11/03/17 0530: pH 7.41, pCO2 49 H, pO2 100, HCO3 31 H, ABG O2 Sat (Measured) 97.0, P-50 (Temp Corrected) N, Carboxyhemoglobin 0.3 L, O2 Concentration % 6L, O2 Delivery Method N/C, Phlebotomy Draw Site LEFT RADIAL 11/03/17 0410: Anion Gap 9, Estimated GFR > 60, BUN/Creatinine Ratio 20.0, Glucose 60 L, Calcium 9.4, Total Bilirubin 0.4, Direct Bilirubin 0.2, AST 19, ALT 29, Alkaline Phosphatase 85, Troponin I < 0.01, Kbw-X-Hoabbnhaxvc Pept 116, Total Protein 5.9 L, Albumin 2.8 L, Amylase 107, Lipase 18 L, Valproic Acid 56.9 11/03/17 0322: D-Dimer High Sensitivty 223, CBC w Diff MAN DIFF ORDERED, RBC 3.41 L, MCV 84.1, MCH 28.4, MCHC 33.7, RDW 20.7 H, MPV 8.3 11/03/17 0311: Valproic Acid Cancelled Microbiology 11/03 742 URINE ROUT: Urine Culture - ORD 11/03 742 BLOOD: Blood Culture - ORD 11/03 742 BLOOD: Blood Culture - ORD Assessment/Plan Assessment: 72 year old woman with multiple medical problems significant for Bipolar disorder, schizophrenia, HFpEF, and "recurrent hypothermia" sent in from [facility] for evaluation of shortness of breath with hypoxia. Patient is somnolent and lethargic and does not offer any complaints. Her temperature ranges 94.0 - 96 and is saturating 96% on 6.0Ls, she is on room air as baseline. On exam she is ill appearing with scattered crackles and rhonchi with a firm abdomen with palpable mass with bilateral edema and an abrasion to the left upper lateral saldana draining yellow fluid. Labs are significant for WBC 1.8 down from 5.7 yesterday, Glucose of 60 and 52 when rechecked. Patient has poor access and other labs / cultures could not be obtained initially. Access was obtained with an ultrasound guided peripheral IV. Patient was given an amp of glucose with improved to the 160s. Patient was dosed with intravenous Vancomycin and Clindamycin in the ED. Patient will require access with PICC or Central line. Clinically patient appears to have probale healthcare acquired pneumonia with associated sepsis resulting in hypothermia, hypoglycemia, and leukopenia. Her abdomen is firm and may represent fecal impaction. Patient is to be admitted to the intensive care unit for frequent vitals, telemetry monitoring, and possible treatment of hypothermia / worsening sepsis. Problem List -Pneumonia, probable HCAP -Sepsis -Firm abdomen, possible fecal impaction -Leukopenia -Hypothermia -Hypoglycemia -Acute Hypoxic respiratory failure -Possible acute on chronic UTI -Altered mental status, probable Toxic Metabolic Encephalopathy -History of "large thyroid/goiter" with mass effect on trachea -HFpEF, LVEF > 70% (05/2017) -Mild / Moderate Aortic stenosis -Stage I Diastolic Dysfunction -Bipolar disorder -Schizoaffective disorder -Breast cancer s/p right lumpectomy -History of CVA Plan -Admit to ICU under hospitalist service -Monitor temperative, start CHARLES hugger if hypothermic -Supplemental oxygen, goal > 92% -Accuchecks Q6H while NPO -D5 NS @ 75 mL/hr -Vancomycin, Clindamycin, Ciprofloxacin -Continue home meds: Aripiprazole, Aspirin, Depakote, Ferrous sulfate, singulair , miralax, KCl, statin -Hold lasix for sepsis, restart as needed -Hold Ferrous sulfate for constipation -ID consult for antibiotic evaluation -Wound care for left saldana wound -Blood cultures x2, Urine culture -Check MRSA swab -Follow up CT Chest / Abdomen / Pelvis -Check Lactic acid, trend until normal if elevated -Check TSH / T3 /T4 -Consider access with PICC vs Central line should it be required -Contact Daughter for consent, patient not answering -Pain control PRN -NPO for AMS -DVT PPx with subcutaneous heparin -FULL CODE As Ranked By This Provider Problem List: 1. Altered mental status 2. Weakness 3. HCAP (healthcare-associated pneumonia) 4. Sepsis Core Measures/Misc (02/14) Acute Coronary Syndrome ACS Diagnosis: No Congestive Heart Failure Congestive Heart Failure Diagnosis No Cerebrovascular Accident CVA/TIA Diagnosis: No VTE (View Protocol) VTE Risk Factors Age>40 No Mechanical VTE Prophylaxis d/t N/A MechProphylax Ordered No VTE Pharm Prophylaxis d/t NA PharmProphylax ordered Sepsis (View protocol) Sepsis Present: Yes If YES complete Sepsis Event Note If YES complete Sepsis Event Note Michael Mata MD 11/03/172121: Core Measures/Misc (02/14) Sepsis (View protocol) If YES complete Sepsis Event Note If YES complete Sepsis Event Note Attending MD Review Statement Attending Statement Attending MD Statement: examined this patient, discuss w/resident/PA/[employer]IGARETTE MACH[employer]ES MECHANIC, agreed w/resident/PA/CIGARETTE MACHINES MECHANIC, reviewed EMR data (avail), reviewed images, amended to note Attending Assessment/Plan: The patient is a 72 yo female with h/o mild-mod , CHF, bipolar/schizoaffective disorder, h/o CVA and "recurrent hypothermia" who is a resident of [facility] who presented with progressively worsening weakness, dyspnea, and hypoxemia. Upon arrival in the ED she was obtunded was noted to have a pulse ox of 88% on 4 L (acute hypoxic respiratory failure). CXR shows RUL airspace disease with subsequent CT showing multifocal airspace disease with LLL infiltrate/ consolidation and collapse. The patient was hypothermic as well and became hypotensive upon arrival in ICU. Physical Exam:+ edema Neuro: unresponsive to verbal/tactile stimuli Labs/Tests: as above Impression/Plan: #Sepsis- Patient was hypothermic, leukopenic, hypotensive. Initial lactate was not obtained due to lack of access to IV initially in ED (was sent once line was placed). CT Chest c/w healthcare acquired pneumonia. Does have 5-10 WBC in urine as well. Was given Vanco/Clinda in ED. Plan: Admit to ICU. Ascencio Culture. IV fluids as per sepsis protocol- sepsis event note/sepsis order set. ID consult- Dr. Brumfield. [facility] consult Dr. Stacy as patient is critically ill- will assume care while in ICU. #Healthcare Acquired Pneumonia- as above- LLL consolidation with other patchy areas of infiltrates. Plan: As above, will treat for healthcare acquired pneumonia. #Acute Hypoxic Respiratory Failure- as above pulse ox 88% on oxygen initially. Plan: Monitor pulse ox closely and maintain saturation. #Hypoglycemia- as above glu 60. Plan: IV glucose and monitor glucoscans. #Hypothermia- ? secondary to sepsis. Plan: May need Anirduh Hugger if temp does not continue to rise. #Altered Mental Status/Acute Toxic Metabolic Encephalopathy- patient not responsive. Plan: Will follow closely with treatment of infection. #H/O Preserved Ejection Fraction CHF- no clinical CHF at present. Prior EF > 70% . BNP nl. Plan: Will follow for CHF. #Bipolar/Schizoaffective Disorder- chronic. Plan: Will follow once responsive. With hypotensive and need for central line, full code status- discussed with Dr. Stacy who will assum ICU care.
--- NOTE | 2017-11-03 11:53 | CT SCAN REPORT ---
EXAMINATION: CT CHEST, ABDOMEN AND PELVIS WITHOUT CONTRAST CLINICAL INFORMATION: Abdominal distention. Shortness of breath. Hypoxia. COMPARISON: 06/04/2017. Same day chest radiograph. TECHNIQUE: Contiguous axial thin section helical images of the chest, abdomen and pelvis were performed without oral or IV contrast. The data set was reformatted in the coronal and sagittal planes and reviewed on an independent workstation. DLP: 1290 mGy-cm. FINDINGS: There is a lower right thyroid exophytic partially calcified 4.8 cm nodule. This exerts mass effect upon the trachea displacing it to the left. There is dependent soft tissue attenuation within the lower trachea proximal to the laura. This could correspond to fluid or aspirated food material. The heart is of normal size. There is no pericardial effusion. There is neither mediastinal, hilar nor axillary lymphadenopathy. There are no chest wall masses. Rib of lung windows demonstrates no pneumothoraces. There is a small left pleural effusion. There is a left lower lobe consolidation with volume loss. There is patchy groundglass opacification throughout the right lower lobe. Mild groundglass opacification is present within the right upper lobe. There is a consolidation within the lateral segment right middle lobe. There are no pulmonary parenchymal nodules. The liver is of normal size and attenuation without focal lesions nor intrahepatic biliary ductal dilation. The patient is status post cholecystectomy. Surgical clips are present. The spleen, pancreas, adrenal glands are unremarkable. Both kidneys are of normal size and attenuation without hydronephrosis or nephrolithiasis. There is no abdominal free fluid. There is neither mesenteric nor retroperitoneal lymphadenopathy. There is a large fat-containing umbilical hernia. Normal unopacified loops of small and large bowel are identified. A normal appendix is identified. There is no pelvic free fluid. There is a macrolobulated uterus, likely escrow representative of fibroids. The urinary bladder is unremarkable. There is neither pelvic nor inguinal lymphadenopathy. Bone windows: Neither sclerotic nor lytic bone lesions are identified. IMPRESSION: Multifocal airspace disease with left lower lobe consolidation and volume loss. The appearance is suspicious for pneumonia. Recommendation is for a followup chest series to be obtained following treatment and/or resolution of symptoms to assure resolution of this appearance. 4.8 cm partially calcified right thyroid nodule. Small amount of fluid or soft tissue attenuation dependently within the distal trachea. This is nonspecific, though could correspond to aspirated fluid. No evidence for acute abdominal or pelvic inflammatory or infectious processes. Large fat-containing umbilical hernia.
[2017-11-03 12:15] VITALS: BP 78/0
[2017-11-03 12:21] LABS: ABSOLUTE BASOPHIL COUNT 0 /CUMM (0.0-0.2); ABSOLUTE EOSINOPHIL COUNT 0 /CUMM (0.0-0.7); ABSOLUTE LYMPH COUNT 0.4 /CUMM (1.2-3.4); ABSOLUTE MONOCYTE COUNT 0.2 /CUMM (0.10-0.60); BASOPHIL % 0 % (0.0-2.0); RBC DISTRIBUTION WIDTH 20.6 % (11.5-14.5)
--- NOTE | 2017-11-03 12:23 | Sepsis Event Note ---
Sepsis Event Note Severe Sepsis Severe Sepsis Present: Yes Severe Sepsis Actions Taken: Blood Cultures x2, Lactic Acid x2, IV Broad Spectrum Abx, IV Fluids- NS or LR Septic Shock Septic Shock Present: No Event Note Event Note: Situation Patient with shortness of breath, hypoxia, hypoglycemia, and leukopenia meeting sepsis critera with Temp 94.0 and WBC 1.8. Background Elderly woman with multiple medical problems with 24 hour history of progressively worsening shortness of breath sent in from [facility] for evaluation. Assessment Clinically patient appears to have sepsis secondary pneumonia, probable healthcare acquired. Patient has poor peripheral acess which caused a delay in obtained blood cultures and additional labs. Patient will be treated with broad spectrum antbiotics and fluids. Recommendations See History and Physical Sepsis Focused Exam Sepsis Cardiac Exam: Regular Rate/Rhythm Sepsis Resp Exam: Scattered crackles Sepsis Cap Refill Exam: >2 sec Sepsis Peripheral Pulse Exam: Weak Sepsis Peripheral Pulse Location: Dorsalis Pedis Sepsis Skin Exam (color): Pale Skin Temp/Moisture Exam: Cool/Dry
[2017-11-03 12:25] LABS: ABSOLUTE GRANULOCYTE CT 5.4 /CUMM (1.4-6.5); EOSINOPHIL % 0.2 % (0-5); GRANULOCYTE % 89.6 % (42.2-75.2); HEMATOCRIT 28.9 % (37-47); MEAN PLATELET VOLUME 7.4 FL (7.4-10.4); PLATELET COUNT 134 /CUMM (130-400)
--- NOTE | 2017-11-03 12:31 | Cons- CRCU ---
See Addendum Josephine Mandujano 11/03/17 1230: General Information and HPI Consulting Request Date of Consult: 11/03/17 Requested By: Dr. Stacy Source of Information: family, old records, EMS Exam Limitations: unable to give history History of Present Illness: Ms. Max is a 72 year old woman with multiple medical problems significant for Bipolar disorder, schizophrenia, HFpEF, and "recurrent hypothermia" sent in from [facility] for evaluation of shortness of breath with hypoxia. Upon ER admisison, patient was somnolent and lethargic to give a complete history. Information collected from ECF/W 10 revealed that patient was at baseline alert and oriented and conversational (confirmed with the daughter later in the afternoon upon admission to ICU). Over the past few days patient was reported to be more tolerated and O2 saturation was 88%, with CBC revealed WBC 5.1/with bandemia, and CXR demonstrated right upper lobe airspace disease possibly edema with recommendation to obtain CT to exclude neoplasm. Person to notify: Daughter Gala Max (Cellphone:[phone], Work: ) Allergies/Medications Allergies: Coded Allergies: Sulfa (Sulfonamide Antibiotics) (Intermediate, FACIAL EDEMA 10/16/16) azithromycin (Intermediate, THROAT CLOSURE 10/16/16) egg (Intermediate, SWOLLEN RED EYES 10/16/16) lactose (Mild, unknown 06/07/17) atorvastatin (UNKNOWN 10/16/16) cephalexin (From KEFLEX) (UNKNOWN 05/31/17) ciprofloxacin (ANXIETY 10/16/16) Home Med List: Acetaminophen (Pain Relief) 650 MG TABLET.ER 1 TAB PO DAILY PAIN (Reported) Aripiprazole (Abilify) 2 MG TABLET 7 MG PO DAILY MENTAL HEALTH (Reported) Aspirin (Aspirin*) 81 MG TAB.CHEW 1 TAB PO DAILY HEART HEALTH (Reported) Biotin 5 MG CAPSULE 1 CAP PO QPM UNKNOWN (Reported) Divalproex Sodium 250 MG TABLET.DR 1 TAB PO QAM MENTAL HEALTH (Reported) Divalproex Sodium 500 MG TABLET.DR 1 TAB PO QPM MENTAL HEALTH (Reported) Ferrous Sulfate 325 MG (65 MG IRON) TABLET 1 TAB PO QPM IRON, VITAMIN ( Reported) Furosemide (Lasix) 40 MG TABLET 0.5 TAB PO QAM CHF (Reported) Montelukast Sodium 10 MG TABLET 10 MG PO DAILY ALLERGIES (Reported) Polyethylene Glycol 3350 (Miralax) 17 GRAM/DOSE POWDER 1 DOSE PO DAILY PRN CONSTIPATION Potassium Chloride 20 MEQ TAB.ER.PRT 1 TAB PO DAILY SUPPLEMENT (Reported) Rosuvastatin Calcium (Crestor) 5 MG TABLET 5 MG PO QHS CHOLESTROL (Reported) Review of Systems Review of Systems Constitutional: Reports: see HPI. 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 self Primary Language: Japanese Living Will? no Functional Ability ADLs Needs Assist: dressing, eating, toileting, bathing. Ambulation: walker IADLs Needs Assist: shopping, housework, finances, food prep, telephone, transportation, medication admin. Exam & Diagnostic Data Last 24 Hrs of Vital Signs/I&O Vital Signs Date Time Temp Pulse Resp B/P B/P Pulse O2 O2 Flow FiO2 Mean Ox Delivery Rate 11/03 1434 97 Nasal 6.0L Cannula 11/03 1403 Nasal 6.0L Cannula 11/03 1347 94 Nasal 6.0L Cannula 11/03 1215 96.9 87 20 78/0 95 Nasal 6.0L Cannula 11/03 1106 96.1 66 20 122/00 100 Nasal 6.0L Cannula 11/03 1011 97 Nasal 2.0L Cannula 11/03 0905 96.2 67 20 132/50 98 Nasal 6.0L Cannula 11/03 0719 95.1 11/03 0634 84 24 125/61 93 Nasal 6.0L Cannula 11/03 0525 92 Nasal 6.0L Cannula 11/03 0504 70 28 158/72 93 Nasal 6.0L Cannula 11/03 0400 93 Non 100% ReBreather 11/03 0345 94.0 11/03 0258 74 32 123/58 96 Non 10L ReBreather Intake & Output 11/03 1600 11/03 0800 11/03 0000 Intake Total 200 0 Output Total 100 Balance 100 0 Intake, IV 200 Intake, Oral 0 0 Number 0 Bowel Movements Output, Urine 100 Physical Exam General Appearance: lethargic, not very responsive to conversation. AO x 0 on admission Head: atraumatic, normal appearance Ears, Nose, Throat: normal ENT inspection Neck: normal inspection, limited range of motion Respiratory: chest non-tender, crackles, rhonchi Cardiovascular: regular rate/rhythm Gastrointestinal: normal bowel sounds, firm ab w/ palpable mass Extremities: bilateral edematous +3 and an abrasion to the left upper lateral saldana draining yellow fluid in ER Neurologic/Psych: Lethargic with limited response Last 48 Hrs of Labs/Neo: Laboratory Tests 11/03/17 1315: Lactic Acid 1.8 11/03/17 1150: TSH 0.267 L, Free T4 1.64, Total T3 0.96 L, CBC w Diff MAN DIFF ORDERED, RBC 3.40 L, MCV 85.0, MCH 28.0, MCHC 33.0, RDW 20.6 H, MPV 7.4, Gran % 89.6 H, Lymphocytes % 6.9 L, Monocytes % 3.3, Eosinophils % 0.2, Basophils % 0, Absolute Granulocytes 5.4, Segmented Neutrophils 35 L, Band Neutrophils 21 H, Absolute Lymphocytes 0.4 L, Lymphocytes 28, Monocytes 12 H, Absolute Monocytes 0.2, Eosinophils 2, Absolute Eosinophils 0, Absolute Basophils 0, Promyelocytes 2 H, Nucleated RBCs 10 H, Platelet Estimate ADEQUATE, Normochromic RBCs VERIFIED, Poikilocytosis 1+, Stomatocytes 1+, Fld Total RBCs Counted 100 11/03/17 0617: Urinalysis LIGHT H, Urine Color YEL, Urine Clarity HAZY H, Urine pH 6.0, Ur Specific [place] 1.020, Urine Protein TRACE H, Urine Ketones 15 H, Urine Nitrite POS H, Urine Bilirubin NEG, Urine Urobilinogen 1.0, Ur Leukocyte Esterase MOD H, Ur Microscopic SEDIMENT EXAMINED, Urine RBC FEW H, Urine WBC 5 -10 H, Ur Epithelial Cells FEW, Urine Bacteria MANY H, Urine Hemoglobin SMALL H, Urine Glucose NEG 11/03/17 0530: pH 7.41, pCO2 49 H, pO2 100, HCO3 31 H, ABG O2 Sat (Measured) 97.0, P-50 (Temp Corrected) N, Carboxyhemoglobin 0.3 L, O2 Concentration % 6L, O2 Delivery Method N/C, Phlebotomy Draw Site LEFT RADIAL 11/03/17 0410: Anion Gap 9, Estimated GFR > 60, BUN/Creatinine Ratio 20.0, Glucose 60 L, Calcium 9.4, Total Bilirubin 0.4, Direct Bilirubin 0.2, AST 19, ALT 29, Alkaline Phosphatase 85, Troponin I < 0.01, Dkz-I-Xorctbrvoiv Pept 116, Total Protein 5.9 L, Albumin 2.8 L, Amylase 107, Lipase 18 L, Valproic Acid 56.9 11/03/17 0322: D-Dimer High Sensitivty 223, CBC w Diff MAN DIFF ORDERED, RBC 3.41 L, MCV 84.1, MCH 28.4, MCHC 33.7, RDW 20.7 H, MPV 8.3, Segmented Neutrophils 42 L, Band Neutrophils 9 H, Lymphocytes 41, Monocytes 3, Eosinophils 1, Metamyelocytes 1, Myelocytes 1 H, Nucleated RBCs 15 H, Blast Cells 2 H, Platelet Estimate ADEQUATE, Hypochromic-Microcytic 2+, Poikilocytosis 2+, Anisocytosis 2+ 11/03/17 0311: Valproic Acid Cancelled Assessment/Plan CRCU Impression/Plan: On admission to ICU, Vitals: T 96.1 trending up, pulse 66, RR 20, blood pressure 80s/50s, saturating on nasal cannula 6.0% -CBC: WBC 5.5, H/H9 0.5/28.9 stable, PLT 133, bandemia 21 -BMP: Unremarkable without lactic acidosis, TSH slightly decreased 0.267, free T4 normal -UA/Microbiology: Pyuria/LE and nitrites positive -Misc: Valproic acid 56.9 within therapeutic range -ABG 7.4 /100/41 on 6 L nasal cannula -Chest CT showed multifocal airspace disease with left lower lobe consolidation and volume loss, possibly pneumonia. 4.8 cm partially calcified right thyroid nodule. Positive for umbilical hernia as well. 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 -We will treat as HCAP, will start vancomycin 1 g IV every 24 hours, and ceftazidine 2 g IV every 12 hours per ID recommendation -Continue home meds: Aripiprazole, Aspirin, Depakote, Ferrous sulfate, singulair , miralax, KCl, statins -Hold Lasix for sepsis, restart as needed -Blood culture 2, urine culture, MRSA, sputum culture -Obtain central venous catheter placement for hypotension. Daughter on phone was contacted and consented for procedures. -PT/OT consult once patient improves -Patient's WBC normalized to 5.5, will monitor daily and consider hem/onc if acute changes DVT prophylaxis Pharm PPX + ALPS NPO DNR/DNI Consult Acknowledgment - Thank you for your consult request. Tawanna GARCIA,[facility] 11/03/17 1900: Assessment/Plan CRCU Other Findings/Comments: Seen and examined independently This is a 72-year-old lady who resides in a senior care with schizoaffective disorder, previous CVA, wheelchair bound, heart failure with preserved ejection fraction, significant aortic stenosis, goiter, previous radioactive iodine treatment, history of breast cancer with lumpectomy and radiation, chronic hyponatremia, multiple hospitalizations for aspiration pneumonia and hypothermia , came into the hospital with cough shortness of breath and bandemia. The chest CT which was done in the emergency room showed bilateral pulmonary infiltrates with left lower lobe infiltrate which appears to be chronic. She was given intravenous fluids and antibiotics and was transferred to the ICU. In the emergency room she was noted to be hypothermic and hypotensive and she is now being admitted to the ICU. Hence this consult. Full history as noted above. IMPRESSION Significant sepsis most likely related to bilateral recurrent aspiration pneumonia. She did have transient neutropenia but this seems to have improved after the blood work was repeated. Bilateral pulmonary infiltrates most of them appear chronic however she may be chronically aspirating Previous history of heart failure but no clinical evidence suggestive of heart failure at this time Significant left shift with 2% blasts. This needs to be repeated if it's elevated would require hematology consult Worsening performance status, recurrent hypothermia rule out hypoglycemia and adrenal insufficiency Compensated hypercarbic respiratory failure with hypoxemia due to bilateral pneumonia and polypharmacy Goiter substernal appears to be stable no new change RECOMMENDATION Triple-lumen catheter is already been placed Intravenous fluids Watch renal function and urine output Blood culture and urine culture as she may have a UTI as well Urinary antigen for strep pneumo and legionella Broad-spectrum antibiotics as noted by infectious disease Sputum culture and asked respiratory to suction her and send a culture Check repeat C BC with manual differential Check her glucose regularly, random cortisol level, thyroid function tests Watch her mental status ABG only if she deteriorates Consult Acknowledgment - Thank you for your consult request.
[2017-11-03 12:52] LABS: WHITE BLOOD CELL COUNT 5.5 /CUMM (4.8-10.8)
--- NOTE | 2017-11-03 13:13 | Cons- Infect Disease ---
General Information and HPI Consulting Request Date of Consult: 11/03/17 Requested By: Michael Mata MD Reason for Consult: Rule out sepsis Source of Information: old records Exam Limitations: clinical condition History of Present Illness: This is a 72-year-old woman, skilled nursing resident, with schizoaffective disorder, status post CVA, HFpEF, aortic stenosis, goiter, status post radioactive iodine, breast cancer, status post right lumpectomy and radiation, chronic hyponatremia, with multiple hospitalizations in the past for weakness and hyponatremia, last hospitalized 5 months prior to admission with presumed aspiration pneumonia, with her hospital course complicated by CHF, admitted today after she was sent to the emergency room early this morning because of weakness, shortness of breath and hypoxia. On admission she was somnolent and hypothermic, with an initial blood pressure of 123/58 and an O2 sat of 95% on a nonrebreather. She was noted to have a minimal amount of thin, blood-tinged secretions. Laboratory data revealed a white blood cell count of 1.8, with 42 segs, 9 bands and 2 blasts, BUN/creatinine 14 and 0.7, with normal liver enzymes , BNP 116. ABG 7.41/40 9/100 on 6 L/min. Urinalysis few RBC/5-10 WBCs. Chest x-ray revealed bibasilar airspace opacities. CT of the chest, abdomen and pelvis revealed multifocal airspace disease with left lower lobe consolidation and volume loss. She was given Vancomycin and Clindamycin and admitted to the ICU, where her systolic blood pressure was noted to be in the 70s. She is unable to provide any history at this time. Allergies/Medications Allergies: Coded Allergies: Sulfa (Sulfonamide Antibiotics) (Intermediate, FACIAL EDEMA 10/16/16) azithromycin (Intermediate, THROAT CLOSURE 10/16/16) egg (Intermediate, SWOLLEN RED EYES 10/16/16) lactose (Mild, unknown 06/07/17) atorvastatin (UNKNOWN 10/16/16) cephalexin (From KEFLEX) (UNKNOWN 05/31/17) ciprofloxacin (ANXIETY 10/16/16) Home Med List: Acetaminophen (Pain Relief) 650 MG TABLET.ER 1 TAB PO DAILY PAIN (Reported) Aripiprazole (Abilify) 2 MG TABLET 7 MG PO DAILY MENTAL HEALTH (Reported) Aspirin (Aspirin*) 81 MG TAB.CHEW 1 TAB PO DAILY HEART HEALTH (Reported) Biotin 5 MG CAPSULE 1 CAP PO QPM UNKNOWN (Reported) Divalproex Sodium 250 MG TABLET.DR 1 TAB PO QAM MENTAL HEALTH (Reported) Divalproex Sodium 500 MG TABLET.DR 1 TAB PO QPM MENTAL HEALTH (Reported) Ferrous Sulfate 325 MG (65 MG IRON) TABLET 1 TAB PO QPM IRON, VITAMIN ( Reported) Furosemide (Lasix) 40 MG TABLET 0.5 TAB PO QAM CHF (Reported) Montelukast Sodium 10 MG TABLET 10 MG PO DAILY ALLERGIES (Reported) Polyethylene Glycol 3350 (Miralax) 17 GRAM/DOSE POWDER 1 DOSE PO DAILY PRN CONSTIPATION Potassium Chloride 20 MEQ TAB.ER.PRT 1 TAB PO DAILY SUPPLEMENT (Reported) Rosuvastatin Calcium (Crestor) 5 MG TABLET 5 MG PO QHS CHOLESTROL (Reported) Past History Travel History Traveled to [place] past 21 day No Medical History Neurological: CVA, dizziness, vertigo EENT: allergies, CHRONIC SINUS PROBLEMS Cardiovascular: stage I diastolic congestive heart failure Respiratory: NONE Gastrointestinal: lactose intolerance Hepatic: NONE Renal: urinary incontinence, CHRONIC UTI Musculoskeletal: falls, degenerative knee arthritis "NO ROTATOR CUFF" R ARM Psychiatric: bipolar disease, schizophrenia Endocrine: iodine radiotherapy for GOITER Blood Disorders: NONE Cancer(s): BREAST CA (breast cancer, status post rig) 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 Extended Care Facility Who Do You Live With? self Primary Language: Lithuanian Living Will? no Functional Ability ADLs Needs Assist: dressing, eating, toileting, bathing. Ambulation: walker IADLs Needs Assist: shopping, housework, finances, food prep, telephone, transportation, medication admin. Review of Systems Comments Unobtainable Exam & Diagnostic Data Last 24 Hrs of Vital Signs/I&O Vital Signs Date Time Temp Pulse Resp B/P B/P Pulse O2 O2 Flow FiO2 Mean Ox Delivery Rate 11/03 1106 96.1 66 20 122/00 100 Nasal 6.0L Cannula 11/03 1011 97 Nasal 2.0L Cannula 11/03 0905 96.2 67 20 132/50 98 Nasal 6.0L Cannula 11/03 0719 95.1 11/03 0634 84 24 125/61 93 Nasal 6.0L Cannula 11/03 0525 92 Nasal 6.0L Cannula 11/03 0504 70 28 158/72 93 Nasal 6.0L Cannula 11/03 0400 93 Non 100% ReBreather 11/03 0345 94.0 11/03 0258 74 32 123/58 96 Non 10L ReBreather Intake & Output 11/03 1600 11/03 0800 11/03 0000 Intake Total 0 Output Total Balance 0 Intake, Oral 0 Physical Exam Other Physical Findings: She is somnolent and minimally responsive to voice and pain in no apparent respiratory distress. Temperature is 96.1. Skin is pale with no rash. HEENT exam dry oral mucosa. Neck is supple with no adenopathy. Lungs bilateral rhonchi. Heart regular rhythm with no murmur. Abdomen is soft, nontender with positive bowel sounds. Back no CVA tenderness. Extremities bilateral lower extremity edema, right greater than left; ulcer on the lateral aspect of the left leg, with no surrounding inflammation; decreased pulses both feet. Neuro is without focality. Last 24 Hours of Lab Results: Laboratory Tests 11/03 11/03 1150 0617 Chemistry TSH Pending Free T4 Pending Total T3 Pending Hematology CBC w Diff Pending WBC Pending RBC Pending Hgb Pending Hct Pending MCV Pending MCH Pending MCHC Pending RDW Pending Plt Count Pending MPV Pending Gran % Pending Lymphocytes % Pending Monocytes % Pending Eosinophils % Pending Basophils % Pending Absolute Granulocytes Pending Absolute Lymphocytes Pending Absolute Monocytes Pending Absolute Eosinophils Pending Absolute Basophils Pending Urines Urinalysis LIGHT H Urine Color (YEL,AMB,STR) YEL Urine Clarity (CLEAR) HAZY H Urine pH (5.0 - 8.0) 6.0 Ur Specific [place] (1.001 - 1.035) 1.020 Urine Protein (NEG,<30 MG/DL) TRACE H Urine Ketones (NEG) 15 H Urine Nitrite (NEG) POS H Urine Bilirubin (NEG) NEG Urine Urobilinogen (0.1 - 1.0 EU/dl) 1.0 Ur Leukocyte Esterase (NEG) MOD H Ur Microscopic SEDIMENT EXAMINED Urine RBC (0 - 5 /HPF) FEW H Urine WBC (0 - 2 /HPF) 5-10 H Ur Epithelial Cells (NONE,FEW) FEW Urine Bacteria (NEG/NONE) MANY H Urine Hemoglobin (NEG) SMALL H Urine Glucose (N MG/DL) NEG 11/03 11/03 11/03 0530 8495 2072 Blood Gas pH (7.35 - 7.45 PH) 7.41 pCO2 (35 - 45 TORR) 49 H pO2 (80 - 100 TORR) 100 HCO3 (21 - 28 MEQ/L) 31 H ABG O2 Sat (Measured) (>96.0 %) 97.0 P-50 (Temp Corrected) N Carboxyhemoglobin (1.5 - 5.0 %) 0.3 L O2 Concentration % 6L O2 Delivery Method N/C Chemistry Sodium (137 - 145 mmol/L) 139 Potassium (3.5 - 5.1 mmol/L) 4.5 Chloride (98 - 107 mmol/L) 96 L Carbon Dioxide (22 - 30 mmol/L) 35 H Anion Gap (5 - 16) 9 BUN (7 - 17 mg/dL) 14 Creatinine (0.5 - 1.0 mg/dL) 0.7 Estimated GFR (>60 ml/min) > 60 BUN/Creatinine Ratio (7 - 25 %) 20.0 Glucose (65 - 99 mg/dL) 60 L Calcium (8.4 - 10.2 mg/dL) 9.4 Total Bilirubin (0.2 - 1.3 mg/dL) 0.4 Direct Bilirubin (< 0.4 mg/dL) 0.2 AST (14 - 36 U/L) 19 ALT (9 - 52 U/L) 29 Alkaline Phosphatase (<127 U/L) 85 Troponin I (< 0.11 ng/ml) < 0.01 [id number] Pept (<125 pg/mL) 116 Total Protein (6.3 - 8.2 g/dL) 5.9 L Albumin (3.5 - 5.0 g/dL) 2.8 L Amylase (30 - 110 U/L) 107 Lipase (23 - 300 U/L) 18 L Coagulation D-Dimer High Sensitivty (0 - 243 ng/ml) 223 Hematology CBC w Diff MAN DIFF ORDERED WBC (4.8 - 10.8 /CUMM) 1.8 L RBC (4.20 - 5.40 /CUMM) 3.41 L Hgb (12.0 - 16.0 G/DL) 9.6 L Hct (37 - 47 %) 28.6 L MCV (81.0 - 99.0 FL) 84.1 MCH (27.0 - 31.0 PG) 28.4 MCHC (33.0 - 37.0 G/DL) 33.7 RDW (11.5 - 14.5 %) 20.7 H Plt Count (130 - 400 /CUMM) 163 MPV (7.4 - 10.4 FL) 8.3 Segmented Neutrophils (42.2 - 75.2 %) 42 L Band Neutrophils (0.0 - 5.0 %) 9 H Lymphocytes (20.5 - 51.1 %) 41 Monocytes (1.7 - 9.3 %) 3 Eosinophils (0 - 5.0 %) 1 Metamyelocytes (0.0 - 1.0 %) 1 Myelocytes (0 - 0 %) 1 H Nucleated RBCs (0.0 - 0.0 /100WBC) 15 H Blast Cells (0.0 - 0.0 %) 2 H Platelet Estimate (ADEQUATE) ADEQUATE Hypochromic-Microcytic 2+ Poikilocytosis 2+ Anisocytosis 2+ Miscellaneous Phlebotomy Draw Site LEFT RADIAL Toxicology Valproic Acid (50 - 120 ug/mL) 56.9 11/03 0311 Toxicology Valproic Acid Cancelled Last 24 Hours of Neo Results: Urine culture November 02 (sent from the skilled nursing) pending Blood culture 1 November 03 pending Diagnostic Data Recent Imaging Findings: Chest x-ray November 03 revealed bibasilar airspace opacities CT of the chest, abdomen and pelvis reveals a lower right thyroid exophytic partially calcified nodule, exerting mass effect upon the trachea, displacing it to the left; dependent soft tissue attenuation within the lower trachea, which may correspond to fluid or aspirated food material; left lower lobe consolidation with volume loss; patchy ground glass opacification throughout the right lower lobe and, to a lesser degree, the right upper lobe, with consolidation within the lateral segment of the right middle lobe; multilobulated uterus, likely suggestive of fibroids Assessment/Plan Assessment/Plan Impression: This is a 72-year-old woman, skilled nursing resident, last hospitalized 5 months prior to admission with presumed aspiration pneumonia, admitted today because of weakness, shortness of breath and hypoxia, found to be hypothermic and hypoxic, with neutropenia and with a CT of the chest revealing multifocal airspace disease suspicious for pneumonia. Her clinical picture is worrisome for sepsis, with hypothermia, hypotension, hypoxia and neutropenia. The most likely source is pulmonary, with the CT scan revealing multilobar densities and with the large multinodular thyroid gland displacing the trachea, possibly increasing her risk for aspiration, suggested by the soft tissue attenuation within the lower trachea felt to represent fluid or aspirated food material. Of note her previous CT scans have revealed similar multilobar densities, and she was also treated for pneumonia and, subsequently, fluid overload on her last hospitalization. She has no other obvious source of sepsis, with her urinalysis not suggestive of a urinary tract infection, no evidence on CT scan for any intra-abdominal or pelvic process and with no evidence for cellulitis. The neutropenia is most likely secondary to sepsis, with a CBC just one day prior to admission revealing a relatively normal differential, but the presence of blasts on today's CBC does raise concern for an underlying hematologic disorder. She will need to be covered with broad- spectrum antibiotics, particularly in view of her neutropenia. She has various allergies reported though she has tolerated penicillins and cephalosporins on previous hospitalizations. Suggestion: 1. Would obtain blood cultures 2 2. Would attempt to obtain a sputum culture 3. Urine culture 4. Urine for strep pneumo antigen and Legionella antigen 5. Consider Hematology input 6. Discontinue Clindamycin 7. Continue Vancomycin 1 g IV every 24 hours 8. Begin Ceftazidime 2 g IV every 12 hours Consult Acknowledgment - Thank you for your consult request.
--- NOTE | 2017-11-03 14:37 | Proc Note Internal Medicine ---
Medicine Procedure Procedure Date: 11/03/17 Medical Procedure(s): central venous cath place Pre-Operative Diagnosis: HCAP Sepsis Post-Operative Diagnosis: as above Estimated Blood Loss: less than 50ml Anesthesia: Lidocaine topical Procedure Findings: Date: 11/03/2017 Time: 1400 Indication: Hemodynamic monitoring/Intravenous access Resident: Sushant Barnhart Khandelwal, Archana A time-out was completed verifying correct patient, procedure, site, positioning , and special equipment if applicable. The patient was placed in a dependent position appropriate for central line placement based on the vein to be cannulated. The patients right groin area was prepped and draped in sterile fashion. 1% Lidocaine was used to anesthetize the surrounding skin area. A triple lumen Cordis catheter was introduced into the the right common femoral vein using the Seldinger technique under ultrasound guidance. The catheter was threaded smoothly over the guide wire and appropriate blood return was obtained. Each lumen of the catheter was evacuated of air and flushed with sterile saline. The catheter was then sutured in place to the skin and a sterile dressing applied. Perfusion to the extremity distal to the point of catheter insertion was checked and found to be adequate. Sushant Hernandez & Katherine Thomas were present for the entire procedure. Estimated Blood Loss: <50cc The patient tolerated the procedure well and there were no complications.
[2017-11-03 16:00] VITALS: BP 110/0
--- NOTE | 2017-11-03 21:53 | Admission Certification ---
Admission Certification Certification Statement - As attending physician, I certify that at the time of - admission, based on clinical presentation, severity of - symptoms, need for further diagnostic testing and - therapeutic interventions, and risk of adverse outcomes - without in-hospital treatment, in my clinical assessment, - this patient requires an acute hospital stay for a minimum - of two nights or longer. I have also considered psychsocial - factors such as support system, advanced age, financial - issues, cognitive issues, and failed out-patient treatments, - past re-admission history, safety of patient, and lack of - compliance as applicable. Specific rationale supporting this admission is: The patient presents from SNF ([facility]) with acute hypoxic respiratory failure, healthcare acquired pneumonia, hypothermia, leukopenia, hypotension- c/ w sepsis. Altered mental status c/w toxic metabolic enceophalopathy. Needs ICU admission, suarez-culture, IV Abx, ID/CRCU consults. IV fluids per sepsis protocol. May need pressors.
[2017-11-04] VITALS: BP 108/00
[2017-11-04 04:52] LABS: ABSOLUTE BASOPHIL COUNT 0 /CUMM (0.0-0.2); ABSOLUTE EOSINOPHIL COUNT 0 /CUMM (0.0-0.7); ABSOLUTE LYMPH COUNT 0.9 /CUMM (1.2-3.4); ABSOLUTE MONOCYTE COUNT 0.2 /CUMM (0.10-0.60); BASOPHIL % 0.4 % (0.0-2.0); EOSINOPHIL % 0.7 % (0-5); GRANULOCYTE % 83.6 % (42.2-75.2); MEAN CORPUSCULAR VOLUME 84.9 FL (81.0-99.0); MEAN PLATELET VOLUME 7.5 FL (7.4-10.4); PLATELET COUNT 96 /CUMM (130-400); RBC DISTRIBUTION WIDTH 20.8 % (11.5-14.5); WHITE BLOOD CELL COUNT 7.2 /CUMM (4.8-10.8)
[2017-11-04 05:00] LABS: RED BLOOD CELL CT 2.51 /CUMM (4.20-5.40)
[2017-11-04 05:01] LABS: HEMATOCRIT 21.3 % (37-47)
[2017-11-04 05:29] LABS: ABSOLUTE BASOPHIL COUNT 0 /CUMM (0.0-0.2); ABSOLUTE EOSINOPHIL COUNT 0 /CUMM (0.0-0.7); ABSOLUTE LYMPH COUNT 0.9 /CUMM (1.2-3.4); ABSOLUTE MONOCYTE COUNT 0.4 /CUMM (0.10-0.60); BASOPHIL % 0.4 % (0.0-2.0); EOSINOPHIL % 0.5 % (0-5); GRANULOCYTE % 81.4 % (42.2-75.2); HEMATOCRIT 21.7 % (37-47); MEAN CORPUSCULAR HGB 28.1 PG (27.0-31.0); MEAN CORPUSCULAR HGB CONC 33.2 G/DL (33.0-37.0); MEAN CORPUSCULAR VOLUME 84.7 FL (81.0-99.0); MEAN PLATELET VOLUME 7.2 FL (7.4-10.4); PLATELET COUNT 90 /CUMM (130-400); RBC DISTRIBUTION WIDTH 20.8 % (11.5-14.5); RED BLOOD CELL CT 2.56 /CUMM (4.20-5.40); WHITE BLOOD CELL COUNT 7.4 /CUMM (4.8-10.8)
[2017-11-04 08:00] VITALS: BP 118/0
--- NOTE | 2017-11-04 08:49 | PN- Resident CRCU ---
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 #HFpEF, LVEF > 70% (05/2017) with mild/moderate left ear, stage I diastolic dysfunction #Bipolar disorder/schizoaffective disorder #Breast cancer S/P right lumpectomy #History of CVA Objective Vital Signs & I&O Last 8 Hrs of Vitals and I&O: Intake & Output 11/04 1600 11/04 0800 11/04 0000 Intake Total 936.6 1645 Output Total 175 250 Balance 761.6 1395 Intake, IV 936.6 1645 Intake, Oral 0 0 Number 0 0 Bowel Movements Output, Urine 175 250 Exam General Appearance: no apparent distress, sleeping Head: atraumatic, normal appearance Neck: normal inspection, limited range of motion Respiratory: no respiratory distress, lungs clear Cardiovascular: regular rate/rhythm, edema Gastrointestinal: non-tender, mass, umbilical hernia Extremities: +3 bilateral edema on admission, on ALPS Current Medications: Current Medications Sig/Courtney Start time Last Medication Dose Route Stop Time Status Admin Acetaminophen 1,000 MG Q6P PRN 11/03 1000 AC IV Albuterol Sulfate 3 ML BID 11/03 2100 AC 11/04 INH 0852 Aspirin 81 MG DAILY 11/04 899 AC PO Atorvastatin Calcium 20 MG 1700 11/03 1700 AC PO Ceftazidime 2,000 MG Q12 11/03 2100 AC 11/03 IV 2042 Ciprofloxacin 400 MG ONCE ONE 11/03 1034 DC 11/03 Dextrose/Water 200 ML IV 11/03 1133 1240 Dextrose 12.5 GM ONCE ONE 11/04 0800 DC 11/04 IV 11/04 0801 0759 Dextrose/Sodium 1,000 ML Q10H 11/03 1815 DC 11/03 Chloride IV 11/04 0414 1809 Divalproex Sodium 250 MG QAM 11/04 0900 CAN PO Divalproex Sodium 500 MG QPM 11/03 2100 CAN PO Heparin Sodium 5,000 UNIT Q8 11/03 1400 AC 11/03 (Porcine) SC 2134 Montelukast Sodium 10 MG DAILY 11/04 899 AC PO Polyethylene Glycol 17 GM DAILY PRN 11/03 1030 AC PO Potassium Chloride 20 MEQ DAILY 11/04 0900 CAN PO Sodium Chloride 500 ML BOLUS ONE 11/03 1830 DC 11/03 IV 11/03 1929 1830 Sodium Chloride 500 ML BOLUS ONE 11/03 1500 DC 11/03 IV 11/03 1559 1519 Sodium Chloride 1,000 ML Q13H 11/03 1500 DC 11/03 IV 1639 Valproate Sodium 250 MG Q8 11/04 0600 DC Sodium Chloride 50 ML IV Valproate Sodium 250 MG Q8 11/03 2200 AC 11/04 Sodium Chloride 50 ML IV 0638 Vancomycin HCl 1,000 MG 0500 11/04 0500 AC 11/04 Sodium Chloride 250 ML IV 0503 Impression/Plan Impression/Problem List Impression: On admission to ICU, Vitals: T 96.1 trending up, pulse 66, RR 20, blood pressure 80s/50s, saturating on nasal cannula 6.0% -CBC: WBC 5.5, H/H9 0.5/28.9 stable, PLT 133, bandemia 21 -BMP: Unremarkable without lactic acidosis, TSH slightly decreased 0.267, free T4 normal -UA/Microbiology: Pyuria/LE and nitrites positive -Misc: Valproic acid 56.9 within therapeutic range -ABG 7.4 1/49/100/41 on 6 L nasal cannula -Chest CT showed multifocal airspace disease with left lower lobe consolidation and volume loss, possibly pneumonia. 4.8 cm partially calcified right thyroid nodule. Positive for umbilical hernia as well. 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 Sedation: none Respiratory/infection: 12 hours per ID recommendation - Pending cultures Infection: As above Cardio: History of HFPEF, with stage I diastolic dysfunction, patient was at baseline edematous, and based on the intake/output the last 24 hours, patient may be retaining fluid, however no new findings on physical examination. Hem: Patient's hemoglobin dropped to 7.0-7.2 overnight, without any active signs of bleeding, with stable blood pressure after central line placement. Patient had received about 3 L of fluid overnight, and may contributed to hemedilution,, however other etiology could not be ruled out. Metabolism: Patient appeared to be mildly hypothyroidism with 0.267, however normal T4 1.64. Per patient's daughter, patient had been on the lower end of body temperature in the past. Alimentary: Neuro: monitor total, spreading to every 8 hour IV infusion. Monitor for seizures if any DVT prophylaxis: Pharm PPX + ALPS NPO Full Code Problem List: 1. HCAP (healthcare-associated pneumonia) 2. Sepsis Pain Ratin Tomorrow's Labs & Rationales: ICU/CBC Plan DVT/Prophylaxis: mechanical
--- NOTE | 2017-11-04 11:23 | PN- Infect Dx ---
Subjective Subjective: Afebrile. She is more responsive than yesterday. Objective Last 24 Hrs of Vital Signs/I&O Vital Signs Date Time Temp Pulse Resp B/P B/P Pulse O2 O2 Flow FiO2 Mean Ox Delivery Rate 11/04 0917 99 Nasal 2.0L Cannula 11/04 0800 97.0 74 20 118/0 96 Nasal 2.0L Cannula 11/04 0800 96 Nasal 2.0L Cannula 11/04 0400 99 Nasal 2.0L Cannula 11/04 0000 99 Nasal 3.0L Cannula 11/04 0000 97.8 81 24 108/00 99 Nasal 3.0L Cannula 11/03 2108 94 Nasal 3.0L Cannula 11/03 2000 94 Nasal 3.0L Cannula 11/03 1600 97.1 78 18 110/0 99 Nasal 4.0L Cannula 11/03 1600 96 Nasal 3.0L Cannula 11/03 1434 97 Nasal 6.0L Cannula 11/03 1403 Nasal 6.0L Cannula 11/03 1347 94 Nasal 6.0L Cannula 11/03 1215 96.9 87 20 78/0 95 Nasal 6.0L Cannula Intake & Output 11/04 1600 11/04 0800 11/04 0000 Intake Total 936.6 1645 Output Total 175 250 Balance 761.6 1395 Intake, IV 936.6 1645 Intake, Oral 0 0 Number 0 0 Bowel Movements Output, Urine 175 250 Physical Exam Other Physical Findings: She is arousable and responsive but remains quite lethargic Lungs scattered rhonchi bilaterally Heart regular rhythm with no murmur Extremities bilateral lower extremity edema, right greater than left; right femoral triple lumen catheter in place with no inflammation at the site Cheek catheter remains in place Results Last 24 Hours of Lab Results: Laboratory Tests 11/04 11/04 0510 0345 Chemistry Sodium (137 - 145 mmol/L) 141 Potassium (3.5 - 5.1 mmol/L) 3.7 Chloride (98 - 107 mmol/L) 102 Carbon Dioxide (22 - 30 mmol/L) 31 H Anion Gap (5 - 16) 7 BUN (7 - 17 mg/dL) 15 Creatinine (0.5 - 1.0 mg/dL) 0.7 Estimated GFR (>60 ml/min) > 60 Glucose (65 - 99 mg/dL) 72 Calcium (8.4 - 10.2 mg/dL) 8.3 L Phosphorus (2.5 - 4.5 mg/dL) 4.1 Magnesium (1.6 - 2.3 mg/dL) 1.6 Total Bilirubin (0.2 - 1.3 mg/dL) 0.2 AST (14 - 36 U/L) 13 L ALT (9 - 52 U/L) 20 Troponin I (< 0.11 ng/ml) < 0.01 Albumin (3.5 - 5.0 g/dL) 2.1 L Cortisol AM Sample (4.46 - 22.7 ug/dL) 14.1 Hematology CBC w Diff NO MAN DIFF REQ MAN DIFF ORDERED WBC (4.8 - 10.8 /CUMM) 7.4 7.2 RBC (4.20 - 5.40 /CUMM) 2.56 L 2.51 L Hgb (12.0 - 16.0 G/DL) 7.2 *L 7.0 *L Hct (37 - 47 %) 21.7 L 21.3 L MCV (81.0 - 99.0 FL) 84.7 84.9 MCH (27.0 - 31.0 PG) 28.1 28.0 MCHC (33.0 - 37.0 G/DL) 33.2 33.0 RDW (11.5 - 14.5 %) 20.8 H 20.8 H Plt Count (130 - 400 /CUMM) 90 L 96 L MPV (7.4 - 10.4 FL) 7.2 L 7.5 Gran % (42.2 - 75.2 %) 81.4 H 83.6 H Lymphocytes % (20.5 - 51.1 %) 11.8 L 12.1 L Monocytes % (1.7 - 9.3 %) 5.9 3.2 Eosinophils % (0 - 5 %) 0.5 0.7 Basophils % (0.0 - 2.0 %) 0.4 0.4 Absolute Granulocytes (1.4 - 6.5 /CUMM) 6.0 6.0 Segmented Neutrophils (42.2 - 75.2 %) 69 Band Neutrophils (0.0 - 5.0 %) 10 H Absolute Lymphocytes (1.2 - 3.4 /CUMM) 0.9 L 0.9 L Lymphocytes (20.5 - 51.1 %) 15 L Monocytes (1.7 - 9.3 %) 6 Absolute Monocytes (0.10 - 0.60 /CUMM) 0.4 0.2 Absolute Eosinophils (0.0 - 0.7 /CUMM) 0 0 Absolute Basophils (0.0 - 0.2 /CUMM) 0 0 Platelet Estimate (ADEQUATE) DECREASED Polychromasia 1+ Basophilic Stippling SLIGHT Ovalocytes FEW Other Body Source Fld Total RBCs Counted (%) 100 11/03 11/03 1315 1150 Chemistry Lactic Acid (0.7 - 2.1 mmol/L) 1.8 TSH (0.270 - 4.200 uIU/mL) 0.267 L Free T4 (0.78 - 2.44 ng/dL) 1.64 Total T3 (0.97 - 1.69 ng/mL) 0.96 L Hematology CBC w Diff MAN DIFF ORDERED WBC (4.8 - 10.8 /CUMM) 5.5 RBC (4.20 - 5.40 /CUMM) 3.40 L Hgb (12.0 - 16.0 G/DL) 9.5 L Hct (37 - 47 %) 28.9 L MCV (81.0 - 99.0 FL) 85.0 MCH (27.0 - 31.0 PG) 28.0 MCHC (33.0 - 37.0 G/DL) 33.0 RDW (11.5 - 14.5 %) 20.6 H Plt Count (130 - 400 /CUMM) 134 MPV (7.4 - 10.4 FL) 7.4 Gran % (42.2 - 75.2 %) 89.6 H Lymphocytes % (20.5 - 51.1 %) 6.9 L Monocytes % (1.7 - 9.3 %) 3.3 Eosinophils % (0 - 5 %) 0.2 Basophils % (0.0 - 2.0 %) 0 Absolute Granulocytes (1.4 - 6.5 /CUMM) 5.4 Segmented Neutrophils (42.2 - 75.2 %) 35 L Band Neutrophils (0.0 - 5.0 %) 21 H Absolute Lymphocytes (1.2 - 3.4 /CUMM) 0.4 L Lymphocytes (20.5 - 51.1 %) 28 Monocytes (1.7 - 9.3 %) 12 H Absolute Monocytes (0.10 - 0.60 /CUMM) 0.2 Eosinophils (0 - 5.0 %) 2 Absolute Eosinophils (0.0 - 0.7 /CUMM) 0 Absolute Basophils (0.0 - 0.2 /CUMM) 0 Promyelocytes (0.0 - 0.0 %) 2 H Nucleated RBCs (0.0 - 0.0 /100WBC) 10 H Platelet Estimate (ADEQUATE) ADEQUATE Normochromic RBCs VERIFIED Poikilocytosis 1+ Stomatocytes 1+ Other Body Source Fld Total RBCs Counted (%) 100 Last 24 Hours of Neo Results: Blood culture November 03 negative Sputum culture November 03 probable Moraxella, with gram stain revealing many white blood cells, many gram-negative cocci and moderate gram-positive rods Urine culture November 02 approximately 30,000 colonies of gram-negative rods Urine culture November 03 negative Urine strep pneumo antigen and Legionella antigen November 03 negative Assessment/Plan ID Impression: Improved, with temperatures and white blood cell count normalized, on Vancomycin and Ceftazidime Day 1 of treatment for presumed aspiration pneumonia, with multilobar densities on her CT scan and with her sputum culture positive for what appears to be Moraxella. Her CBC does reveal a marked anemia and thrombocytopenia, but her differential has normalized with decreased bands. Suggestion: 1. Follow-up final cultures 2. Would pursue placement of a PICC (if peripheral access is not available) when able so that her right femoral triple lumen catheter can be removed 3. Discontinue Vancomycin and Ceftazidime 4. Begin Ceftriaxone 1 g IV every 24 hours
--- NOTE | 2017-11-04 13:56 | PN- CRCU ---
Subjective HPI/Critical Care Issues: Afebrile. She is more responsive than yesterday. Objective Current Medications: Current Medications Sig/Courtney Start time Last Medication Dose Route Stop Time Status Admin Acetaminophen 1,000 MG Q6P PRN 11/03 1000 AC IV Albuterol Sulfate 3 ML BID 11/03 2100 AC 11/04 INH 0852 Aspirin 81 MG DAILY 11/04 0900 AC PO Atorvastatin Calcium 20 MG 1700 11/03 1700 DC PO Ceftazidime 2,000 MG Q12 11/03 2100 DC 11/04 IV 0942 Ceftriaxone Sodium 1,000 MG DAILY 11/04 2100 AC IV Dextrose 12.5 GM ONCE ONE 11/04 0800 DC 11/04 IV 11/04 0801 0759 Dextrose/Sodium 1,000 ML Q10H 11/03 1815 DC 11/03 Chloride IV 11/04 0414 1809 Divalproex Sodium 250 MG QAM 11/04 0900 CAN PO Divalproex Sodium 500 MG QPM 11/03 2100 CAN PO Heparin Sodium 5,000 UNIT Q8 11/03 1400 DC 11/03 (Porcine) SC 2134 Montelukast Sodium 10 MG DAILY 11/04 09 AC PO Non-Formulary 0 SEE ADMIN CRITERIA 11/04 0915 CAN Medication ANY Polyethylene Glycol 17 GM DAILY PRN 11/03 1030 AC PO Potassium Chloride 20 MEQ DAILY 11/04 0900 CAN PO Rosuvastatin Calcium 5 MG AT BEDTIME 11/04 2100 AC PO Sodium Chloride 500 ML BOLUS ONE 11/03 1830 DC 11/03 IV 11/03 1929 1830 Sodium Chloride 500 ML BOLUS ONE 11/03 1500 DC 11/03 IV 11/03 1559 1519 Sodium Chloride 1,000 ML Q13H 11/03 1500 DC 11/03 IV 1639 Valproate Sodium 250 MG Q8 11/04 0600 DC Sodium Chloride 50 ML IV Valproate Sodium 250 MG Q8 11/03 2200 AC 11/04 Sodium Chloride 50 ML IV 0638 Vancomycin HCl 1,000 MG 0500 11/04 0500 DC 11/04 Sodium Chloride 250 ML IV 0503 Vital Signs & I&O Last 24 Hrs of Vitals and I&O: Vital Signs Date Time Temp Pulse Resp B/P B/P Pulse O2 O2 Flow FiO2 Mean Ox Delivery Rate 11/04 1200 96 Nasal 1.0L Cannula 11/04 916 99 Nasal 2.0L Cannula 11/04 08 97.0 74 20 118/0 96 Nasal 2.0L Cannula 11/04 0800 96 Nasal 2.0L Cannula 11/04 0400 99 Nasal 2.0L Cannula 11/04 0000 99 Nasal 3.0L Cannula 11/04 0000 97.8 81 24 108/00 99 Nasal 3.0L Cannula 11/03 2108 94 Nasal 3.0L Cannula 11/03 2000 94 Nasal 3.0L Cannula 11/03 1600 97.1 78 18 110/0 99 Nasal 4.0L Cannula 11/03 1600 96 Nasal 3.0L Cannula 11/03 1434 97 Nasal 6.0L Cannula 11/03 1403 Nasal 6.0L Cannula Intake & Output 11/04 1600 11/04 0800 11/04 0000 Intake Total 936.6 1645 Output Total 175 250 Balance 761.6 1395 Intake, IV 936.6 1645 Intake, Oral 0 0 Number 0 0 Bowel Movements Output, Urine 175 250 Impression/Plan Impression/Plan Impression/Plan: This is a 72-year-old lady who resides in a group home with schizoaffective disorder, previous CVA, wheelchair bound, heart failure with preserved ejection fraction, significant aortic stenosis, goiter, previous radioactive iodine treatment, history of breast cancer with lumpectomy and radiation, chronic hyponatremia, multiple hospitalizations for aspiration pneumonia and hypothermia , came into the hospital with cough shortness of breath and bandemia. The chest CT which was done in the emergency room showed bilateral pulmonary infiltrates with left lower lobe infiltrate which appears to be chronic. She was given intravenous fluids and antibiotics and was transferred to the ICU. In the emergency room she was noted to be hypothermic and hypotensive and subsequently admitted to the ICU General Appearance: lethargic, not very responsive to conversation. AO x 0 on admission Head: atraumatic, normal appearance Ears, Nose, Throat: normal ENT inspection Neck: normal inspection, limited range of motion Respiratory: chest non-tender, crackles, rhonchi Cardiovascular: regular rate/rhythm Gastrointestinal: normal bowel sounds, firm ab w/ palpable mass Extremities: bilateral edematous +3 and an abrasion to the left upper lateral saldana draining yellow fluid in ER Neurologic/Psych: more awake since yesterday IMPRESSION Improving sepsis most likely related to bilateral recurrent pneumonia. SPutum prob moraxella Prob recurrent aspiration Previous history of heart failure but no clinical evidence suggestive of heart failure at this time Significant left shift Worsening performance status, recurrent hypothermia rule out hypoglycemia and adrenal insufficiency (previously been ruled out) Compensated hypercarbic respiratory failure with hypoxemia due to bilateral pneumonia and polypharmacy Goiter substernal appears to be stable no new change Thrombocytopenia rule out HIT with anemia RECOMMENDATION Cont abx, change to ceftriaxone Dc femoral line and get peripheral access if able Watch urine out put check trop Check HIT antibody panel Venodyne boots Check crit and transfuse if less than 22 Agg pulm toilet Nebs with mucomyst Keep in icu Critically ill still, tts 37 mins Will follow
[2017-11-04 16:00] VITALS: BP 110/00
[2017-11-04 19:08] LABS: ABSOLUTE BASOPHIL COUNT 0 /CUMM (0.0-0.2); ABSOLUTE EOSINOPHIL COUNT 0 /CUMM (0.0-0.7); ABSOLUTE LYMPH COUNT 0.8 /CUMM (1.2-3.4); ABSOLUTE MONOCYTE COUNT 0.3 /CUMM (0.10-0.60); BASOPHIL % 0.3 % (0.0-2.0); EOSINOPHIL % 0.6 % (0-5); GRANULOCYTE % 80.8 % (42.2-75.2); HEMATOCRIT 22.2 % (37-47); MEAN CORPUSCULAR HGB 27.4 PG (27.0-31.0); MEAN CORPUSCULAR HGB CONC 32.1 G/DL (33.0-37.0); MEAN CORPUSCULAR VOLUME 85.3 FL (81.0-99.0); MEAN PLATELET VOLUME 7.7 FL (7.4-10.4); PLATELET COUNT 91 /CUMM (130-400); RBC DISTRIBUTION WIDTH 21.2 % (11.5-14.5); WHITE BLOOD CELL COUNT 6.2 /CUMM (4.8-10.8)
[2017-11-05 05:06] LABS: ABSOLUTE BASOPHIL COUNT 0 /CUMM (0.0-0.2); ABSOLUTE EOSINOPHIL COUNT 0.1 /CUMM (0.0-0.7); ABSOLUTE GRANULOCYTE CT 5.1 /CUMM (1.4-6.5); ABSOLUTE LYMPH COUNT 0.8 /CUMM (1.2-3.4); ABSOLUTE MONOCYTE COUNT 0.4 /CUMM (0.10-0.60); BASOPHIL % 0.3 % (0.0-2.0); EOSINOPHIL % 0.9 % (0-5); GRANULOCYTE % 80.6 % (42.2-75.2); HEMATOCRIT 21.4 % (37-47); MEAN CORPUSCULAR HGB 27.8 PG (27.0-31.0); MEAN CORPUSCULAR HGB CONC 32.7 G/DL (33.0-37.0); MEAN PLATELET VOLUME 7.4 FL (7.4-10.4); PLATELET COUNT 82 /CUMM (130-400); RBC DISTRIBUTION WIDTH 21.4 % (11.5-14.5); RED BLOOD CELL CT 2.52 /CUMM (4.20-5.40); WHITE BLOOD CELL COUNT 6.4 /CUMM (4.8-10.8)
--- NOTE | 2017-11-05 07:32 | PN- Resident CRCU ---
Subjective HPI/CRCU Issues: No overnight event. Patient's K remained low overnight and was given repletion. Again hypotensive around 80s/40s in the AM however appeared to be at her baseline morning BP in the past days. Woke up on physical exam without apparent distress. Bedside suction for residual phlegm. Objective Vital Signs & I&O Last 8 Hrs of Vitals and I&O: Vital Signs Date Time Temp Pulse Resp B/P B/P Pulse O2 O2 Flow FiO2 Mean Ox Delivery Rate 11/05 0400 97 Nasal 1.0L Cannula 11/05 0000 100 Nasal 1.0L Cannula 11/05 0000 96.0 73 73 100 Nasal 1.0L Cannula 11/04 2014 96 Nasal 1.0L Cannula 11/05 1999 95 Nasal 1.0L Cannula 11/04 1600 95 Nasal 1.0L Cannula 11/04 1600 96.4 70 20 110/00 97 Room Air Room Air 11/04 1200 96 Nasal 1.0L Cannula 11/04 0917 99 Nasal 2.0L Cannula 11/04 0800 97.0 74 20 118/0 96 Nasal 2.0L Cannula 11/04 0800 96 Nasal 2.0L Cannula Intake & Output 11/05 0800 / 0000 11/04 1600 Intake Total 703 827 Output Total 130 175 Balance 573 652 Intake, IV 703 827 Output, Urine 130 175 Exam General Appearance: no apparent distress, alert, awake Head: atraumatic, normal appearance Respiratory: decreased breath sounds Cardiovascular: regular rate/rhythm Gastrointestinal: non-tender, hernia, mass Extremities: +3 BLE edema, at baseline Current Medications: Current Medications Sig/Courtney Start time Last Medication Dose Route Stop Time Status Admin Acetaminophen 1,000 MG Q6P PRN 11/03 1000 AC IV Albuterol Sulfate 3 ML BID 11/03 2099 AC 11/04 INH 2008 Aspirin 81 MG DAILY 11/04 0900 AC PO Atorvastatin Calcium 20 MG 1700 11/03 1700 DC PO Ceftazidime 2,000 MG Q12 11/03 2099 DC 11/04 IV 0942 Ceftriaxone Sodium 1,000 MG DAILY 11/04 2099 AC 11/04 IV 2020 Dextrose 25 GM .STK-MED ONE 11/04 1805 DC IV 11/04 1806 Dextrose 12.5 GM ONCE ONE 11/04 08 DC 11/04 IV 11/04 0801 0759 Dextrose/Water 1,000 ML .[id number] 11/05 1999 DC 11/04 IV 2009 Guaifenesin 600 MG TID 11/04 1441 AC PO 11/05 09 Heparin Sodium 5,000 UNIT Q8 11/03 1400 DC 11/03 (Porcine) SC 2134 Montelukast Sodium 10 MG DAILY 11/04 09 AC PO Non-Formulary 0 SEE ADMIN CRITERIA 11/04 914 CAN Medication ANY Polyethylene Glycol 17 GM DAILY PRN 11/03 1030 AC PO Potassium Chloride 10 MEQ Q1H 11/05 614 DC 11/05 IV 11/05 0716 0621 Potassium Chloride 20 MEQ DAILY 11/04 09 CAN PO Rosuvastatin Calcium 5 MG AT BEDTIME 11/04 2100 AC PO Valproate Sodium 250 MG Q8 11/03 2200 AC 11/05 Sodium Chloride 50 ML IV 0528 Vancomycin HCl 1,000 MG 0500 11/04 0500 DC 11/04 Sodium Chloride 250 ML IV 0503 Impression/Plan Impression/Problem List Impression: On admission to ICU, Vitals: T 96.1 trending up, pulse 66, RR 20, blood pressure 80s/50s, saturating on nasal cannula 6.0% -CBC: WBC 5.5, H/H9 0.5/28.9 stable, PLT 133, bandemia 21 -BMP: Unremarkable without lactic acidosis, TSH slightly decreased 0.267, free T4 normal -UA/Microbiology: Pyuria/LE and nitrites positive -Misc: Valproic acid 56.9 within therapeutic range -ABG 7.4 1/49/100/41 on 6 L nasal cannula -Chest CT showed multifocal airspace disease with left lower lobe consolidation and volume loss, possibly pneumonia. 4.8 cm partially calcified right thyroid nodule. Positive for umbilical hernia as well. 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 Awake and alert, without apparent distress on exam. In/Out in 24hr: 2190/490, with farr, retaining fluid? Sedation: none Respiratory/infection: candidate for mucomyst per RT - Pending PICC line placement today, may DC femoral linle. Infection: As above Cardio: History of HFPEF, with stage I diastolic dysfunction, patient was at baseline edematous, and based on the intake/output the last 24 hours, patient may be retaining fluid, however no new findings on physical examination. patient will receive 1 PRBC today. Hem: Patient's hemoglobin dropped to 7.0-7.2 overnight, without any active signs of bleeding, with stable blood pressure after femoral line placement. Still considering hemodilution as Hgb was holding, however other etiology could not be ruled out. - Will give 1U PRBC. Metabolism: Patient appeared to be mildly hypothyroidism with 0.267, however normal T4 1.64. Per patient's daughter, patient had been on the lower end of body temperature in the past. Alimentary: Neuro: monitor total, spreading to every 8 hour IV infusion. Monitor for seizures if any DVT prophylaxis: Pharm PPX + ALPS NPO Full Code Problem List: 1. Pneumonia Pain Ratin Tomorrow's Labs & Rationales: CBC/ICU Plan DVT/Prophylaxis: mechanical
[2017-11-05 08:00] VITALS: BP 110/00
--- NOTE | 2017-11-05 10:05 | PN- Pulmonary ---
Subjective HPI/Critical Care Issues: Doing about the same Still lethargic No overnight event. Patient's K remained low overnight and was given repletion. Again hypotensive around 80s/40s in the AM however appeared to be at her baseline morning BP in the past days. Woke up on physical exam without apparent distress. Bedside suction for residual phlegm. Objective Current Medications: Current Medications Sig/Courtney Start time Last Medication Dose Route Stop Time Status Admin Acetaminophen 1,000 MG Q6P PRN 11/03 1000 AC IV Albuterol Sulfate 3 ML BID 11/03 2100 AC 11/05 INH 0812 Aspirin 81 MG DAILY 11/04 09 AC PO Ceftazidime 2,000 MG Q12 11/03 2100 DC 11/04 IV 0942 Ceftriaxone Sodium 1,000 MG DAILY 11/04 2100 AC 11/04 IV 2020 Dextrose 25 GM .STK-MED ONE 11/04 1805 DC IV 11/04 1806 Dextrose/Water 1,000 ML .[id number] 11/04 2000 DC 11/04 IV 2010 Furosemide 20 MG ONCE ONE 11/05 1000 AC IV 11/05 1001 Guaifenesin 600 MG TID 11/04 1441 DC PO 11/05 0901 Heparin Sodium 5,000 UNIT Q8 11/03 1400 DC 11/03 (Porcine) SC 2134 Montelukast Sodium 10 MG DAILY 11/04 0900 AC PO Polyethylene Glycol 17 GM DAILY PRN 11/03 1030 AC PO Potassium Chloride 10 MEQ Q1H 11/05 0615 DC 11/05 IV 11/05 0716 0800 Rosuvastatin Calcium 5 MG AT BEDTIME 11/04 2100 AC PO Valproate Sodium 250 MG Q8 11/03 2200 DC 11/05 Sodium Chloride 50 ML IV 0528 Vancomycin HCl 1,000 MG 0500 11/04 0500 DC 11/04 Sodium Chloride 250 ML IV 0503 Vital Signs & I&O Last 24 Hrs of Vitals and I&O: Vital Signs Date Time Temp Pulse Resp B/P B/P Pulse O2 O2 Flow FiO2 Mean Ox Delivery Rate 11/06 0715 95 Nasal 1.0L Cannula 11/05 0800 96.5 62 16 110/00 98 Nasal 1.0L Cannula 11/05 0400 97 Nasal 1.0L Cannula 11/05 0000 100 Nasal 1.0L Cannula 11/05 0000 96.0 73 73 100 Nasal 1.0L Cannula 11/04 Nasal 1.0L Cannula 11/05 1999 95 Nasal 1.0L Cannula 11/05 1599 95 Nasal 1.0L Cannula 11/05 1599 96.4 70 20 110/00 97 Room Air Room Air 11/04 1200 96 Nasal 1.0L Cannula Intake & Output 11/05 1600 11/05 0800 06 0000 Intake Total 703 Output Total 130 Balance 573 Intake, IV 703 Output, Urine 130 Patient 172 lb Weight Laboratory Tests 11/05 11/04 0346 1750 Chemistry Sodium (137 - 145 mmol/L) 143 Potassium (3.5 - 5.1 mmol/L) 3.3 L Chloride (98 - 107 mmol/L) 104 Carbon Dioxide (22 - 30 mmol/L) 31 H Anion Gap (5 - 16) 8 BUN (7 - 17 mg/dL) 11 Creatinine (0.5 - 1.0 mg/dL) 0.6 Estimated GFR (>60 ml/min) > 60 Glucose (65 - 99 mg/dL) 74 Insulin Level (3.0 - 25.0 mIU/mL) Pending Calcium (8.4 - 10.2 mg/dL) 8.1 L Phosphorus (2.5 - 4.5 mg/dL) 3.2 Magnesium (1.6 - 2.3 mg/dL) 1.7 Total Bilirubin (0.2 - 1.3 mg/dL) 0.2 AST (14 - 36 U/L) 12 L ALT (9 - 52 U/L) 24 Troponin I (< 0.11 ng/ml) < 0.01 Albumin (3.5 - 5.0 g/dL) 2.0 L Hematology CBC w Diff NO MAN DIFF REQ NO MAN DIFF REQ WBC (4.8 - 10.8 /CUMM) 6.4 6.2 RBC (4.20 - 5.40 /CUMM) 2.52 L 2.60 L Hgb (12.0 - 16.0 G/DL) 7.0 *L 7.1 *L Hct (37 - 47 %) 21.4 L 22.2 L MCV (81.0 - 99.0 FL) 85.0 85.3 MCH (27.0 - 31.0 PG) 27.8 27.4 MCHC (33.0 - 37.0 G/DL) 32.7 L 32.1 L RDW (11.5 - 14.5 %) 21.4 H 21.2 H Plt Count (130 - 400 /CUMM) 82 L 91 L MPV (7.4 - 10.4 FL) 7.4 7.7 Gran % (42.2 - 75.2 %) 80.6 H 80.8 H Lymphocytes % (20.5 - 51.1 %) 12.3 L 13.2 L Monocytes % (1.7 - 9.3 %) 5.9 5.1 Eosinophils % (0 - 5 %) 0.9 0.6 Basophils % (0.0 - 2.0 %) 0.3 0.3 Absolute Granulocytes (1.4 - 6.5 /CUMM) 5.1 5.0 Absolute Lymphocytes (1.2 - 3.4 /CUMM) 0.8 L 0.8 L Absolute Monocytes (0.10 - 0.60 /CUMM) 0.4 0.3 Absolute Eosinophils (0.0 - 0.7 /CUMM) 0.1 0 Absolute Basophils (0.0 - 0.2 /CUMM) 0 0 /11/04 0510 0345 Chemistry Sodium (137 - 145 mmol/L) 141 Potassium (3.5 - 5.1 mmol/L) 3.7 Chloride (98 - 107 mmol/L) 102 Carbon Dioxide (22 - 30 mmol/L) 31 H Anion Gap (5 - 16) 7 BUN (7 - 17 mg/dL) 15 Creatinine (0.5 - 1.0 mg/dL) 0.7 Estimated GFR (>60 ml/min) > 60 Glucose (65 - 99 mg/dL) 72 Calcium (8.4 - 10.2 mg/dL) 8.3 L Phosphorus (2.5 - 4.5 mg/dL) 4.1 Magnesium (1.6 - 2.3 mg/dL) 1.6 Total Bilirubin (0.2 - 1.3 mg/dL) 0.2 AST (14 - 36 U/L) 13 L ALT (9 - 52 U/L) 20 Troponin I (< 0.11 ng/ml) < 0.01 Albumin (3.5 - 5.0 g/dL) 2.1 L Cortisol AM Sample (4.46 - 22.7 ug/dL) 14.1 Hematology CBC w Diff NO MAN DIFF REQ MAN DIFF ORDERED WBC (4.8 - 10.8 /CUMM) 7.4 7.2 RBC (4.20 - 5.40 /CUMM) 2.56 L 2.51 L Hgb (12.0 - 16.0 G/DL) 7.2 *L 7.0 *L Hct (37 - 47 %) 21.7 L 21.3 L MCV (81.0 - 99.0 FL) 84.7 84.9 MCH (27.0 - 31.0 PG) 28.1 28.0 MCHC (33.0 - 37.0 G/DL) 33.2 33.0 RDW (11.5 - 14.5 %) 20.8 H 20.8 H Plt Count (130 - 400 /CUMM) 90 L 96 L MPV (7.4 - 10.4 FL) 7.2 L 7.5 Gran % (42.2 - 75.2 %) 81.4 H 83.6 H Lymphocytes % (20.5 - 51.1 %) 11.8 L 12.1 L Monocytes % (1.7 - 9.3 %) 5.9 3.2 Eosinophils % (0 - 5 %) 0.5 0.7 Basophils % (0.0 - 2.0 %) 0.4 0.4 Absolute Granulocytes (1.4 - 6.5 /CUMM) 6.0 6.0 Segmented Neutrophils (42.2 - 75.2 %) 69 Band Neutrophils (0.0 - 5.0 %) 10 H Absolute Lymphocytes (1.2 - 3.4 /CUMM) 0.9 L 0.9 L Lymphocytes (20.5 - 51.1 %) 15 L Monocytes (1.7 - 9.3 %) 6 Absolute Monocytes (0.10 - 0.60 /CUMM) 0.4 0.2 Absolute Eosinophils (0.0 - 0.7 /CUMM) 0 0 Absolute Basophils (0.0 - 0.2 /CUMM) 0 0 Platelet Estimate (ADEQUATE) DECREASED Polychromasia 1+ Basophilic Stippling SLIGHT Ovalocytes FEW Other Body Source Fld Total RBCs Counted (%) 100 06/06 06/06 1315 1150 Chemistry Lactic Acid (0.7 - 2.1 mmol/L) 1.8 TSH (0.270 - 4.200 uIU/mL) 0.267 L Free T4 (0.78 - 2.44 ng/dL) 1.64 Total T3 (0.97 - 1.69 ng/mL) 0.96 L Hematology CBC w Diff MAN DIFF ORDERED WBC (4.8 - 10.8 /CUMM) 5.5 RBC (4.20 - 5.40 /CUMM) 3.40 L Hgb (12.0 - 16.0 G/DL) 9.5 L Hct (37 - 47 %) 28.9 L MCV (81.0 - 99.0 FL) 85.0 MCH (27.0 - 31.0 PG) 28.0 MCHC (33.0 - 37.0 G/DL) 33.0 RDW (11.5 - 14.5 %) 20.6 H Plt Count (130 - 400 /CUMM) 134 MPV (7.4 - 10.4 FL) 7.4 Gran % (42.2 - 75.2 %) 89.6 H Lymphocytes % (20.5 - 51.1 %) 6.9 L Monocytes % (1.7 - 9.3 %) 3.3 Eosinophils % (0 - 5 %) 0.2 Basophils % (0.0 - 2.0 %) 0 Absolute Granulocytes (1.4 - 6.5 /CUMM) 5.4 Segmented Neutrophils (42.2 - 75.2 %) 35 L Band Neutrophils (0.0 - 5.0 %) 21 H Absolute Lymphocytes (1.2 - 3.4 /CUMM) 0.4 L Lymphocytes (20.5 - 51.1 %) 28 Monocytes (1.7 - 9.3 %) 12 H Absolute Monocytes (0.10 - 0.60 /CUMM) 0.2 Eosinophils (0 - 5.0 %) 2 Absolute Eosinophils (0.0 - 0.7 /CUMM) 0 Absolute Basophils (0.0 - 0.2 /CUMM) 0 Promyelocytes (0.0 - 0.0 %) 2 H Nucleated RBCs (0.0 - 0.0 /100WBC) 10 H Platelet Estimate (ADEQUATE) ADEQUATE Normochromic RBCs VERIFIED Poikilocytosis 1+ Stomatocytes 1+ Other Body Source Fld Total RBCs Counted (%) 100 Microbiology Date/Time Procedure - Status Source Growth 11/03 1315 Legionella Antigen - RES URINE ROUT 11/03 1315 Streptococcus pneumoniae Antigen (M - RES URINE ROUT 11/03 1315 Urine Culture - RES URINE ROUT 11/03 1237 Respiratory Culture - RES LOWER RESP MORAXELLA CATARRHALIS STAPH AUREUS 11/03 1237 Gram Stain - RES LOWER RESP 11/03 1215 Surveillance Culture - CAN UPPER RESP Cancelled: DUPLICATE 11/03 1215 Surveillance Culture - COMP UPPER RESP METH RESIST STAPH AUREUS 11/03 1214 Surveillance Culture - COMP GI 11/03 1150 Blood Culture - RES BLOOD 11/03 0743 Urine Culture - CAN URINE ROUT Cancelled: DUPLICATE SEE [id number] 11/03 0743 Blood Culture - CAN BLOOD Cancelled: SPECIMEN NEVER RECEIVED Impression/Plan Impression/Plan Impression/Plan: This is a 72-year-old lady who resides in a skilled nursing with schizoaffective disorder, previous CVA, wheelchair bound, heart failure with preserved ejection fraction, significant aortic stenosis, goiter, previous radioactive iodine treatment, history of breast cancer with lumpectomy and radiation, chronic hyponatremia, multiple hospitalizations for aspiration pneumonia and hypothermia , came into the hospital with cough shortness of breath and bandemia. The chest CT which was done in the emergency room showed bilateral pulmonary infiltrates with left lower lobe infiltrate which appears to be chronic. She was given intravenous fluids and antibiotics and was transferred to the ICU. In the emergency room she was noted to be hypothermic and hypotensive and subsequently admitted to the ICU, since admission now has slightly improved General Appearance: lethargic, not very responsive to conversation. AO x 0 on admission Head: atraumatic, normal appearance Ears, Nose, Throat: normal ENT inspection Neck: normal inspection, limited range of motion Respiratory: chest non-tender, crackles, rhonchi Cardiovascular: regular rate/rhythm Gastrointestinal: normal bowel sounds, firm ab w/ palpable mass Extremities: bilateral edematous +3 and an abrasion to the left upper lateral saldana draining yellow fluid in ER, now has pink dressing on it Neurologic/Psych: more awake since yesterday IMPRESSION: Improving sepsis most likely related to bilateral recurrent pneumonia. SPutum prob moraxella now has staph aureus awell Prob recurrent aspiration Previous history of heart failure but no clinical evidence suggestive of heart failure at this time Significant left shift Worsening performance status, recurrent hypothermia rule out hypoglycemia and adrenal insufficiency (previously been ruled out) Compensated hypercarbic respiratory failure with hypoxemia due to bilateral pneumonia and polypharmacy Goiter substernal appears to be stable no new change Thrombocytopenia rule out HIT with anemia RECOMMENDATION Cont abx, change to ceftriaxone, consider starting vanco again Dc femoral line and get peripheral access if able, with picc Watch urine out put Lasix one dose Ultrasound of the left upper ext Check HIT antibody panel Venodyne boots Agg pulm toilet Nebs with mucomyst again Keep in icu Critically ill still, tts 37 mins Will follow
--- NOTE | 2017-11-05 11:29 | PN- Infect Dx ---
Subjective Subjective: Afebrile. She is quite lethargic and is not able to provide any history. Objective Last 24 Hrs of Vital Signs/I&O Vital Signs Date Time Temp Pulse Resp B/P B/P Pulse O2 O2 Flow FiO2 Mean Ox Delivery Rate 11/05 0815 95 Nasal 1.0L Cannula 11/05 08 98 Nasal 1.0L Cannula 11/05 0800 96.5 62 16 110/00 98 Nasal 1.0L Cannula 11/05 0400 97 Nasal 1.0L Cannula 11/05 0000 100 Nasal 1.0L Cannula 11/05 0000 96.0 73 73 100 Nasal 1.0L Cannula 11/04 2014 96 Nasal 1.0L Cannula 11/04 2000 95 Nasal 1.0L Cannula 11/04 1600 95 Nasal 1.0L Cannula 11/04 1600 96.4 70 20 110/00 97 Room Air Room Air 11/04 1200 96 Nasal 1.0L Cannula Intake & Output 11/05 1600 11/05 0800 06/ 0000 Intake Total 703 Output Total 130 Balance 573 Intake, IV 703 Output, Urine 130 Patient 172 lb Weight unable to provide any history Physical Exam Other Physical Findings: She is lethargic and minimally responsive Lungs scattered rhonchi bilaterally Heart regular rhythm with no murmur Extremities 1+ edema both upper extremities; right femoral triple lumen catheter remains in place with no inflammation at the site Cheek catheter remains in place Results Last 24 Hours of Lab Results: Laboratory Tests 11/05 11/05 0500 0346 Chemistry Sodium (137 - 145 mmol/L) 143 Potassium (3.5 - 5.1 mmol/L) 3.3 L Chloride (98 - 107 mmol/L) 104 Carbon Dioxide (22 - 30 mmol/L) 31 H Anion Gap (5 - 16) 8 BUN (7 - 17 mg/dL) 11 Creatinine (0.5 - 1.0 mg/dL) 0.6 Estimated GFR (>60 ml/min) > 60 Glucose (65 - 99 mg/dL) 74 Insulin Level (3.0 - 25.0 mIU/mL) 3.0 Calcium (8.4 - 10.2 mg/dL) 8.1 L Phosphorus (2.5 - 4.5 mg/dL) 3.2 Magnesium (1.6 - 2.3 mg/dL) 1.7 Total Bilirubin (0.2 - 1.3 mg/dL) 0.2 AST (14 - 36 U/L) 12 L ALT (9 - 52 U/L) 24 Albumin (3.5 - 5.0 g/dL) 2.0 L Hematology CBC w Diff NO MAN DIFF REQ WBC (4.8 - 10.8 /CUMM) 6.4 RBC (4.20 - 5.40 /CUMM) 2.52 L Hgb (12.0 - 16.0 G/DL) 7.0 *L Hct (37 - 47 %) 21.4 L MCV (81.0 - 99.0 FL) 85.0 MCH (27.0 - 31.0 PG) 27.8 MCHC (33.0 - 37.0 G/DL) 32.7 L RDW (11.5 - 14.5 %) 21.4 H Plt Count (130 - 400 /CUMM) 82 L MPV (7.4 - 10.4 FL) 7.4 Gran % (42.2 - 75.2 %) 80.6 H Lymphocytes % (20.5 - 51.1 %) 12.3 L Monocytes % (1.7 - 9.3 %) 5.9 Eosinophils % (0 - 5 %) 0.9 Basophils % (0.0 - 2.0 %) 0.3 Absolute Granulocytes (1.4 - 6.5 /CUMM) 5.1 Absolute Lymphocytes (1.2 - 3.4 /CUMM) 0.8 L Absolute Monocytes (0.10 - 0.60 /CUMM) 0.4 Absolute Eosinophils (0.0 - 0.7 /CUMM) 0.1 Absolute Basophils (0.0 - 0.2 /CUMM) 0 Immunology Heparin-induced Plt Ab Cancelled Heparin-PF4 AB OD Cancelled 11/04 1750 Chemistry Troponin I (< 0.11 ng/ml) < 0.01 Hematology CBC w Diff NO MAN DIFF REQ WBC (4.8 - 10.8 /CUMM) 6.2 RBC (4.20 - 5.40 /CUMM) 2.60 L Hgb (12.0 - 16.0 G/DL) 7.1 *L Hct (37 - 47 %) 22.2 L MCV (81.0 - 99.0 FL) 85.3 MCH (27.0 - 31.0 PG) 27.4 MCHC (33.0 - 37.0 G/DL) 32.1 L RDW (11.5 - 14.5 %) 21.2 H Plt Count (130 - 400 /CUMM) 91 L MPV (7.4 - 10.4 FL) 7.7 Gran % (42.2 - 75.2 %) 80.8 H Lymphocytes % (20.5 - 51.1 %) 13.2 L Monocytes % (1.7 - 9.3 %) 5.1 Eosinophils % (0 - 5 %) 0.6 Basophils % (0.0 - 2.0 %) 0.3 Absolute Granulocytes (1.4 - 6.5 /CUMM) 5.0 Absolute Lymphocytes (1.2 - 3.4 /CUMM) 0.8 L Absolute Monocytes (0.10 - 0.60 /CUMM) 0.3 Absolute Eosinophils (0.0 - 0.7 /CUMM) 0 Absolute Basophils (0.0 - 0.2 /CUMM) 0 Last 24 Hours of Neo Results: Sputum culture November 03 positive for Moraxella catarrhalis, beta-lactamase positive, and Staph aureus Nares surveillance culture November 03 positive for MRSA Blood culture November 03 negative Urine culture November 02 approximately 30,000 colonies of gram-negative rods Urine culture November 03 negative Assessment/Plan ID Impression: Condition remains poor, though her blood pressure is stable and her temperatures and white blood cell count remain normal, now on Ceftriaxone alone, Day 2 of treatment for presumed aspiration pneumonia, with multilobar densities on her CT scan and with her sputum culture positive for Moraxella and now Staph aureus, though her respiratory status is stable. Given her positive nares culture for MRSA suspect that this will also be MRSA; therefore her Vancomycin will need to be resumed. She remains thrombocytopenic likely secondary to sepsis. The positive urine culture from November 02 (prior to admission) is of unclear significance with only 30,000 colonies and with her repeat urine culture from admission negative. Suggestion: 1. Would pursue placement of a PICC so that the right femoral triple lumen catheter can be removed 2. Follow-up final cultures 3. Resume Vancomycin 1 g IV every 24 hours pending above 4. Continue Ceftriaxone Dr. Tyson is covering over the weekend
--- NOTE | 2017-11-05 12:44 | ULTRASOUND REPORT ---
EXAMINATION: LEFT UPPER EXTREMITY VENOUS ULTRASOUND CLINICAL INFORMATION: Left arm swelling and discoloration COMPARISON: None. TECHNIQUE: Doppler spectral analysis and color flow Doppler imaging was performed of the left upper extremity. Compression and augmentation maneuvers were performed. FINDINGS: The left internal jugular vein, subclavian vein, axillary vein, brachial vein, basilic vein, cephalic vein, and visualized forearm veins were well-identified and normal. They demonstrate normal compressibility and color fill-in. IMPRESSION: No evidence for left upper extremity deep vein thrombosis.
--- NOTE | 2017-11-05 15:47 | RADIOLOGY REPORT ---
EXAMINATION: XR PORTABLE CHEST CLINICAL INFORMATION: Confirm NG tube placement COMPARISON: Multiple priors, most recent from November 03, 2017. TECHNIQUE: Portable frontal view of the chest was obtained. FINDINGS: An enteric tube can be followed into the stomach. The cardiomediastinal silhouette is unchanged. Lung volumes are very low with persistent patchy bibasilar opacities, left more than right. No focal pleural effusion. Osseous detail is limited. IMPRESSION: Enteric tube terminates in the stomach. Bibasilar airspace disease, similar compared to prior.
[2017-11-05 16:00] VITALS: BP 118/56
--- NOTE | 2017-11-05 16:23 | ULTRASOUND REPORT ---
CLINICAL HISTORY: This patient is a 72 years old female with a history of pneumonia, who presents to Interventional Radiology for placement of a double lumen PICC for central venous access. PROCEDURES: 1. Real-time ultrasound-guided access into the left basilic vein after documentation of selected vessel patency, and permanent imaging storing in the patient records. 2. Placement of a PICC. PHYSICIANS: Dr. Tierra Rodriguez (attending). MEDICATIONS: Lidocaine 1%, 2 mL SQ. CONTRAST: None FLUOROSCOPY TIME: 0.3 minutes DAP: 1.4 uGym2 COMPLICATIONS: None ESTIMATED BLOOD LOSS: Scant SPECIMENS: None IMPLANT: 6 Serbian power PICC SITE MARKING: As part of the preprocedure verification policy, a site marking procedure was initiated. Due to the nature the procedure, the insertion site could not be predetermined thus invoking the policy of exemption to site laterality and marking. Insertion site marking was performed in the procedure room in conjunction with imaging confirmation. PROCEDURE NOTE: Informed consent was obtained from the patient prior to the procedure. During this process, the procedure and potential alternatives were explained along with the intended outcome and benefits. The risks of the procedure, including the possibility of an unsuccessful procedure, as well as the risk of not doing the procedure, were discussed. The patient was given the opportunity to ask questions regarding the procedure and appeared competent to make decisions. A signed consent form documenting this discussion was placed in the medical record. A time-out procedure was performed. The patient was placed supine on the fluoroscopy table. Prior to prepping the patient, a limited sonogram of the left arm was performed to choose appropriate access, and this arm was prepped and draped in the usual sterile fashion. All elements of maximal sterile barrier technique followed including use of cap, mask, sterile gown, sterile gloves, a sterile full body drape and hand hygiene. Also followed skin preparation with 2% chlorhexidine for cutaneous antisepsis, and sterile ultrasound preparation with sterile gel and probe cover when applicable. Venous access was achieved into the left basilic vein using ultrasound and fluoroscopic guidance. The 0.018 measuring wire from the PICC was advanced into the cavoatrial junction. The needle was removed and replaced with the peel away sheath. The intravascular length was measured and the catheter was trimmed to the correct length. The inner dilator was removed and the PICC was advanced over the wire into the cavoatrial junction. The peel away sheath and wire were removed. The catheter was tested successfully and secured to the skin with its tip in the cavoatrial junction. A spot image was taken. The patient tolerated the procedure well. FINDINGS: 1. Patent left basilic vein. 2. Successful placement of a 6-Fr double lumen PICC that measures 40 cm in length. IMPRESSION: Successful placement of a PICC. PLAN: 1. The patient was stable after the procedure and was transferred to the interventional recovery area. The patient will be transferred to the floor. 2. The catheter may be used immediately.
[2017-11-05 20:04] LABS: ABSOLUTE BASOPHIL COUNT 0 /CUMM (0.0-0.2); ABSOLUTE EOSINOPHIL COUNT 0 /CUMM (0.0-0.7); ABSOLUTE GRANULOCYTE CT 6.3 /CUMM (1.4-6.5); ABSOLUTE LYMPH COUNT 0.6 /CUMM (1.2-3.4); ABSOLUTE MONOCYTE COUNT 0.4 /CUMM (0.10-0.60); BASOPHIL % 0.1 % (0.0-2.0); EOSINOPHIL % 0.6 % (0-5); GRANULOCYTE % 85.6 % (42.2-75.2); MEAN CORPUSCULAR HGB CONC 33.3 G/DL (33.0-37.0); MEAN CORPUSCULAR VOLUME 84.3 FL (81.0-99.0); MEAN PLATELET VOLUME 8.2 FL (7.4-10.4); RBC DISTRIBUTION WIDTH 18.8 % (11.5-14.5); WHITE BLOOD CELL COUNT 7.3 /CUMM (4.8-10.8)
[2017-11-05 20:06] LABS: RED BLOOD CELL CT 3.34 /CUMM (4.20-5.40)
[2017-11-05 20:07] LABS: HEMATOCRIT 28.1 % (37-47); PLATELET COUNT 86 /CUMM (130-400)
[2017-11-06] VITALS: BP 98/00
[2017-11-06 04:26] LABS: ABSOLUTE BASOPHIL COUNT 0 /CUMM (0.0-0.2); ABSOLUTE EOSINOPHIL COUNT 0.1 /CUMM (0.0-0.7); ABSOLUTE LYMPH COUNT 0.8 /CUMM (1.2-3.4); ABSOLUTE MONOCYTE COUNT 0.4 /CUMM (0.10-0.60); BASOPHIL % 0.1 % (0.0-2.0); HEMATOCRIT 27.2 % (37-47); MEAN CORPUSCULAR HGB 28.5 PG (27.0-31.0); MEAN CORPUSCULAR HGB CONC 33.8 G/DL (33.0-37.0); MEAN CORPUSCULAR VOLUME 84.4 FL (81.0-99.0); MEAN PLATELET VOLUME 7.2 FL (7.4-10.4); RBC DISTRIBUTION WIDTH 19.1 % (11.5-14.5); RED BLOOD CELL CT 3.22 /CUMM (4.20-5.40); WHITE BLOOD CELL COUNT 7.2 /CUMM (4.8-10.8)
[2017-11-06 04:28] LABS: PLATELET COUNT 81 /CUMM (130-400)
[2017-11-06 08:00] VITALS: BP 106/00
--- NOTE | 2017-11-06 08:01 | PN- Resident CRCU ---
Subjective HPI/CRCU Issues: Acute hypoxic respiratory failure; Sepsis, 2/2 HCAP; UTI; AMS 2/2 toxic encephalopathy; Hypothermia (improved) 24 Hour Events: I followed up and examined the patient today. She is resting comfortably in bed , not in distress, and does not offer any complaints. Vital signs overnight:( low BP 98 over Doppler, rest of the vitals WNL. At 0400 hrs: Blood sugar by fingerstick: 65: 12.5 gm Dextrose pushed IV by overnight team. At 0800 hrs, blood sugar again 69, another 12.5 gm Dextrose IV given. Plt still low at 81 today. No other nursing issues reported to me otherwise. Objective Vital Signs & I&O Last 8 Hrs of Vitals and I&O: Vital Signs Date Time Temp Pulse Resp B/P B/P Pulse O2 O2 Flow FiO2 Mean Ox Delivery Rate 11/06 0400 94 Nasal 1.0L Cannula 11/06 0000 97.1 68 20 98/00 98 Nasal 1.0L Cannula 11/06 0000 98 Nasal 1.0L Cannula 11/05 2013 99 Nasal 1.0L Cannula 11/06 1999 97 Nasal 1.0L Cannula 11/05 1600 94 Nasal 1.0L Cannula 11/05 1600 97.6 70 20 118/56 97 Nasal 1.0L Cannula 11/05 1200 100 Nasal 1.0L Cannula 11/05 0815 95 Nasal 1.0L Cannula Intake & Output 11/06 1600 11/06 0800 11/06 0000 Intake Total 490 Output Total 250 1550 Balance -250 -1060 Intake, IV 360 Intake, Other 130 Output, Urine 250 1550 Exam General Appearance: no apparent distress, alert, awake, comfortable, obese, on 1L/min O2 via NC Other Physical Findings: Head: atraumatic, normal appearance Respiratory: decreased breath sounds b/l Cardiovascular: regular rate/rhythm Gastrointestinal: non-tender, hernia, mass Extremities: +3 BLE edema, at baseline Neuro: ............* PICC Site: Left basilic vein Date In: 11/05/17 Need for Catheter poor access IV Drips IV Drips: - Nutrition Nutrition: NPO Current Medications: Current Medications Sig/Courtney Start time Last Medication Dose Route Stop Time Status Admin Acetaminophen 1,000 MG Q6P PRN 11/03 1000 AC IV Albuterol Sulfate 3 ML BID 11/03 2100 AC 11/05 INH 2011 Aspirin 81 MG DAILY 11/04 0900 AC PO Ceftriaxone Sodium 1,000 MG DAILY 11/04 2100 AC 11/05 IV 205 Dextrose 12.5 GM ONCE ONE 11/06 0415 DC 11/06 IV 11/06 0416 0433 Furosemide 20 MG ONCE ONE 11/05 1000 DC / IV 11/05 1001 1445 Guaifenesin 600 MG TID 11/04 1441 DC PO 11/05 0901 Heparin Sodium 0 .STK-MED ONE 11/05 1449 DC (Porcine) IV Lidocaine 0 .STK-MED ONE 11/05 1449 DC .ROUTE Magnesium Sulfate 1 GM ONCE ONE 11/05 2045 DC 11/05 Dextrose/Water 100 ML IV 11/06 0044 2049 Montelukast Sodium 10 MG DAILY 11/04 899 AC PO Polyethylene Glycol 17 GM DAILY PRN 11/03 1030 AC PO Potassium Chloride 40 MEQ BID 11/05 2100 AC 11/05 PO 2050 Potassium Chloride 10 MEQ ONCE ONE 11/05 2045 DC 11/05 IV 11/05 2045 215 Potassium Chloride 20 MEQ ONCE ONE 11/05 1945 DC 11/05 IV 11/05 194 195 Potassium Chloride 10 MEQ .STK-MED ONE 11/05 1821 DC IV 11/05 182 Rosuvastatin Calcium 5 MG AT BEDTIME 11/04 2099 AC 11/05 PO 2050 Valproate Sodium 250 MG Q8 11/03 2200 DC 11/05 Sodium Chloride 50 ML IV 0528 Vancomycin HCl 1,000 MG 1000 11/05 1045 AC 11/05 Sodium Chloride 250 ML IV 1100 Antibiotics Antibiotic: vanc, ctx Impression/Plan Impression/Problem List Impression: 72-year-old female with past medical history of HFpEF (>70%, in 05/2017), aortic stenosis, CVA, breast cancer status post right lumpectomy and radiation, large goiter with mass effect on trachea s/p radioactive I therapy, chronic hyponatremia, bipolar disorder, schizoaffective disorder, who initially presented with worsening dyspnea and hypoxia, and being treated for hypothermia, respiratory failure, sepsis 2/2 pneumonia, is in the ICU for the same. Patient is currently being treated in the ICU for the following issues: RESPIRATORY #Acute hypoxic respiratory failure, secondary to pneumonia (Moraxella catarrhalis, MRSA) Patient continues to be oxygen dependent, and seems to be doing poorly, will continue IV ceftriaxone as well as IV vancomycin, TRC/nebs. INFECTIOUS DISEASE #Pneumonia, as mentioned above. CARDIOLOGY #HFpEF, severely edematous, seems to be retaining fluid. Inj Lasix 20 mg IV once. HEMATOLOGY # Anemia, s/p transfusion with 1 U PRBC #Thrombocytopenia, differentials: sepsis (being treated for); HIT (stopped Heparin, antibodies sent) METABOLIC #Hypokalemia, today K at 4.5: DC'ed the PO KCl 40 meq BID -Continue to keep K at 4, Mg at 2, Phos at 4 (today at 3) ALIMENTARY #Remains NPO until swallow eval, due AMS NEPHROLOGY # No issues NEUROLOGY #patient is very drowsy, arousable to pain. IV Depacon had been discontinued (? err), which is her the equivalent for home pills, so continued today. CHRONIC ISSUES OTHERWISE: MISC: Diet: NPO for now DVT prophylaxis: ALPS only (low plt) Code status: Full code IV access: PICC placed yesterday (11/05/17) on Left Family update: Updated until yesterday 9Daughter) Problem List: 1. Sepsis 2. HCAP (healthcare-associated pneumonia) 3. Anemia 4. Thrombocytopenia Pain Ratin (PT CANNOT RESPOND WELL) Pain Location: - Pain Goal: Pain 4 or less Pain Plan: prn Tomorrow's Labs & Rationales: CBC, ICU lab bundle Plan DVT/Prophylaxis: mechanical
--- NOTE | 2017-11-06 10:37 | PN- Pulmonary ---
Subjective HPI/Critical Care Issues: Patient remains extremely lethargic respiratory status remains stable now on 1 L nasal oxygen but pressures appear improved Objective Current Medications: Current Medications Sig/Courtney Start time Last Medication Dose Route Stop Time Status Admin Acetaminophen 1,000 MG Q6P PRN 11/03 1000 AC IV Albuterol Sulfate 3 ML BID 11/03 2100 AC 11/06 INH 1015 Aspirin 81 MG DAILY 11/04 09 AC 11/06 PO 0943 Ceftriaxone Sodium 1,000 MG DAILY 11/04 2100 AC 11/06 IV 0944 Dextrose 12.5 GM ONCE ONE 11/06 0830 DC 11/06 IV 11/06 0831 0941 Dextrose 12.5 GM ONCE ONE 11/06 0415 DC 11/06 IV 11/06 0416 0433 Furosemide 20 MG ONCE ONE 11/06 1030 UNVr IV 11/06 1031 Heparin Sodium 0 .STK-MED ONE 11/05 1449 DC (Porcine) IV Lidocaine 0 .STK-MED ONE 11/05 1449 DC .ROUTE Magnesium Sulfate 1 GM ONCE ONE 11/05 2044 DC 11/05 Dextrose/Water 100 ML IV 11/064 0 Montelukast Sodium 10 MG DAILY 11/04 899 AC 11/06 PO 0943 Polyethylene Glycol 17 GM DAILY PRN 11/03 1030 AC 11/06 PO 0944 Potassium Chloride 40 MEQ BID 11/05 2099 DC 11/05 PO 2050 Potassium Chloride 10 MEQ ONCE ONE 11/05 2044 DC 11/05 IV 11/05 Potassium Chloride 20 MEQ ONCE ONE 11/05 194 DC 11/05 IV 11/05 Potassium Chloride 10 MEQ .STK-MED ONE 11/05 182 DC IV 11/05 182 Rosuvastatin Calcium 5 MG AT BEDTIME 11/04 2099 AC 11/05 PO 2050 Valproate Sodium 250 MG Q8 11/06 1400 AC Sodium Chloride 50 ML IV Vancomycin HCl 1,000 MG 1000 11/05 1045 AC 11/06 Sodium Chloride 250 ML IV 0944 Vital Signs & I&O Last 24 Hrs of Vitals and I&O: Vital Signs Date Time Temp Pulse Resp B/P B/P Pulse O2 O2 Flow FiO2 Mean Ox Delivery Rate 11/06 0800 99 Nasal 1.0L Cannula 11/06 08 96.6 74 18 106/00 100 Nasal 1.0L Cannula 11/06 0400 94 Nasal 1.0L Cannula 11/06 0000 97.1 68 20 98/00 98 Nasal 1.0L Cannula 11/06 0000 98 Nasal 1.0L Cannula 11/05 2013 99 Nasal 1.0L Cannula 11/06 1999 97 Nasal 1.0L Cannula 11/05 1600 94 Nasal 1.0L Cannula 11/06 1599 97.6 70 20 118/56 97 Nasal 1.0L Cannula 11/05 1200 100 Nasal 1.0L Cannula Intake & Output 11/06 1600 11/06 0800 11/06 0000 Intake Total 490 Output Total 250 1550 Balance -250 -1060 Intake, IV 360 Intake, Other 130 Output, Urine 250 1550 Oxygen saturation 1 L 99% exam for chest shows occasional rhonchi cardiac exam shows regular S1 and S2 without murmurs abdomen is soft nontender. Upper extremity duplex ultrasound is negative for DVT. PICC line has been placed Impression/Plan Impression/Plan Impression/Plan: 72-year-old woman with presumed aspiration pneumonia now on vancomycin and ceftriaxone with stable respiratory status. Mental status remains abnormal. Recommendations: Repeat arterial blood gases with history of hypercarbia and persistent lethargy. Femoral line has been removed. Continue IV antibiotics. Aspiration precautions.
--- NOTE | 2017-11-06 12:26 | PN- Infect Dx ---
Subjective Subjective: This patient is a 72-year-old white female with Moraxella and MRSA pneumonia. The patient does not provide any additional information. She is lethargic and only moans in response. Review of Systems Comments: Review of systems cannot be obtained Objective Last 24 Hrs of Vital Signs/I&O Vital Signs Date Time Temp Pulse Resp B/P B/P Pulse O2 O2 Flow FiO2 Mean Ox Delivery Rate 11/06 1200 99 Nasal 1.0L Cannula 11/07 799 99 Nasal 1.0L Cannula 11/07 799 96.6 74 18 106/00 100 Nasal 1.0L Cannula 11/06 0400 94 Nasal 1.0L Cannula 11/06 0000 97.1 68 20 98/00 98 Nasal 1.0L Cannula 11/06 0000 98 Nasal 1.0L Cannula 11/05 2013 99 Nasal 1.0L Cannula 11/06 1999 97 Nasal 1.0L Cannula 11/06 1599 94 Nasal 1.0L Cannula 11/05 1600 97.6 70 20 118/56 97 Nasal 1.0L Cannula Intake & Output 11/06 1600 11/06 0811/06 0000 Intake Total 490 Output Total 250 1550 Balance -250 -1060 Intake, IV 360 Intake, Other 130 Output, Urine 250 1550 Physical Exam Other Physical Findings: Awake alert and oriented 0 Lethargic and only moans with agitation Moist mucous membranes neck is supple no JVD Lungs are consistent with diffuse rhonchi Abdomen is soft nontender nondistended Lower extremity wound VAC in place Results Last 24 Hours of Lab Results: Laboratory Tests 11/06 11/05 0415 1850 Chemistry Sodium (137 - 145 mmol/L) 144 141 Potassium (3.5 - 5.1 mmol/L) 4.5 3.4 L Chloride (98 - 107 mmol/L) 104 101 Carbon Dioxide (22 - 30 mmol/L) 34 H 34 H Anion Gap (5 - 16) 6 6 BUN (7 - 17 mg/dL) 9 9 Creatinine (0.5 - 1.0 mg/dL) 0.6 0.6 Estimated GFR (>60 ml/min) > 60 > 60 Glucose (65 - 99 mg/dL) 66 74 Calcium (8.4 - 10.2 mg/dL) 8.5 8.4 Phosphorus (2.5 - 4.5 mg/dL) 3.0 3.5 Magnesium (1.6 - 2.3 mg/dL) 2.1 1.6 Total Bilirubin (0.2 - 1.3 mg/dL) 0.2 0.4 AST (14 - 36 U/L) 17 17 ALT (9 - 52 U/L) 24 26 Albumin (3.5 - 5.0 g/dL) 2.2 L 2.3 L Hematology CBC w Diff NO MAN DIFF REQ NO MAN DIFF REQ WBC (4.8 - 10.8 /CUMM) 7.2 7.3 RBC (4.20 - 5.40 /CUMM) 3.22 L 3.34 L Hgb (12.0 - 16.0 G/DL) 9.2 L 9.4 L Hct (37 - 47 %) 27.2 L 28.1 L MCV (81.0 - 99.0 FL) 84.4 84.3 MCH (27.0 - 31.0 PG) 28.5 28.0 MCHC (33.0 - 37.0 G/DL) 33.8 33.3 RDW (11.5 - 14.5 %) 19.1 H 18.8 H Plt Count (130 - 400 /CUMM) 81 L 86 L MPV (7.4 - 10.4 FL) 7.2 L 8.2 Gran % (42.2 - 75.2 %) 83.0 H 85.6 H Lymphocytes % (20.5 - 51.1 %) 10.8 L 8.6 L Monocytes % (1.7 - 9.3 %) 5.1 5.1 Eosinophils % (0 - 5 %) 1.0 0.6 Basophils % (0.0 - 2.0 %) 0.1 0.1 Absolute Granulocytes (1.4 - 6.5 /CUMM) 6.0 6.3 Absolute Lymphocytes (1.2 - 3.4 /CUMM) 0.8 L 0.6 L Absolute Monocytes (0.10 - 0.60 /CUMM) 0.4 0.4 Absolute Eosinophils (0.0 - 0.7 /CUMM) 0.1 0 Absolute Basophils (0.0 - 0.2 /CUMM) 0 0 Immunology Heparin-induced Plt Ab Pending Heparin-PF4 AB OD Pending Last 24 Hours of Neo Results: Microbiology Date/Time Procedure - Status Source Growth 11/03 1315 Legionella Antigen - COMP URINE ROUT 11/03 1315 Streptococcus pneumoniae Antigen (M - COMP URINE ROUT 11/03 1315 Urine Culture - COMP URINE ROUT 11/03 1237 Respiratory Culture - COMP LOWER RESP MORAXELLA CATARRHALIS METH RESIST STAPH AUREUS 11/03 1237 Gram Stain - COMP LOWER RESP Recent Imaging Studies: Radiology reviewed Assessment/Plan ID Impression: This patient is a 72-year-old white female with MRSA and Moraxella pneumonia. She is remained afebrile and her white blood cell count is normal. The patient is on day 3 of ceftriaxone and day 2 of vancomycin. Even with therapy she does not appear to be improving. Not sure if this is her baseline given her response she remains I mortality and morbidity. Suggestion: 1. PICC line placed femoral line removed 2. MRSA present in sputum 3. Continue vancomycin and ceftriaxone 4. Monitor white blood cell count and temperature.
[2017-11-06 16:00] VITALS: BP 108/00
[2017-11-06 23:58] VITALS: BP 138/00
[2017-11-07 04:35] LABS: ABSOLUTE BASOPHIL COUNT 0 /CUMM (0.0-0.2); ABSOLUTE EOSINOPHIL COUNT 0.1 /CUMM (0.0-0.7); ABSOLUTE GRANULOCYTE CT 6.1 /CUMM (1.4-6.5); ABSOLUTE MONOCYTE COUNT 0.7 /CUMM (0.10-0.60); BASOPHIL % 0.3 % (0.0-2.0); EOSINOPHIL % 1.1 % (0-5); GRANULOCYTE % 78.1 % (42.2-75.2); HEMATOCRIT 27.3 % (37-47); MEAN CORPUSCULAR HGB 28.2 PG (27.0-31.0); MEAN CORPUSCULAR HGB CONC 33.1 G/DL (33.0-37.0); MEAN CORPUSCULAR VOLUME 85.2 FL (81.0-99.0); MEAN PLATELET VOLUME 8.1 FL (7.4-10.4); PLATELET COUNT 80 /CUMM (130-400); RBC DISTRIBUTION WIDTH 19.3 % (11.5-14.5); WHITE BLOOD CELL COUNT 7.9 /CUMM (4.8-10.8)
[2017-11-07 08:00] VITALS: BP 110/74
--- NOTE | 2017-11-07 08:24 | PN- Resident CRCU ---
Subjective HPI/CRCU Issues: Acute hypoxic respiratory failure Sepsis, 2/2 HCAP,UTI AMS 2/2 toxic encephalopathy Hypothermia (improved) 24 Hour Events: Seen and examine patient, continues to be minimally responive, not opening eye to command and grunts with painful stimuli. Vitals afebrile HR 60-70s BP 106/doppler O2 sat 99% on 2LNC Objective Vital Signs & I&O Last 8 Hrs of Vitals and I&O: Intake & Output 11/07 1600 11/07 0800 11/07 0000 Intake Total 453 156 Output Total 175 300 Balance 278 -144 Intake, IV 453 156 Output, Urine 175 300 Laboratory Tests 11/07 11/06 0400 1215 Blood Gas pH (7.35 - 7.45 PH) 7.43 pCO2 (35 - 45 TORR) 47 H pO2 (80 - 100 TORR) 81 HCO3 (21 - 28 MEQ/L) 31 H ABG O2 Sat (Measured) (>96.0 %) 95.0 L P-50 (Temp Corrected) N Carboxyhemoglobin (1.5 - 5.0 %) 0.5 L O2 Concentration % 1.5LPM O2 Delivery Method NC Chemistry Sodium (137 - 145 mmol/L) 142 Potassium (3.5 - 5.1 mmol/L) 3.7 Chloride (98 - 107 mmol/L) 102 Carbon Dioxide (22 - 30 mmol/L) 34 H Anion Gap (5 - 16) 6 BUN (7 - 17 mg/dL) 10 Creatinine (0.5 - 1.0 mg/dL) 0.6 Estimated GFR (>60 ml/min) > 60 Glucose (65 - 99 mg/dL) 84 Calcium (8.4 - 10.2 mg/dL) 8.8 Phosphorus (2.5 - 4.5 mg/dL) 3.1 Magnesium (1.6 - 2.3 mg/dL) 1.9 Total Bilirubin (0.2 - 1.3 mg/dL) 0.2 AST (14 - 36 U/L) 18 ALT (9 - 52 U/L) 26 Albumin (3.5 - 5.0 g/dL) 2.3 L Hematology CBC w Diff NO MAN DIFF REQ WBC (4.8 - 10.8 /CUMM) 7.9 RBC (4.20 - 5.40 /CUMM) 3.20 L Hgb (12.0 - 16.0 G/DL) 9.0 L Hct (37 - 47 %) 27.3 L MCV (81.0 - 99.0 FL) 85.2 MCH (27.0 - 31.0 PG) 28.2 MCHC (33.0 - 37.0 G/DL) 33.1 RDW (11.5 - 14.5 %) 19.3 H Plt Count (130 - 400 /CUMM) 80 L MPV (7.4 - 10.4 FL) 8.1 Gran % (42.2 - 75.2 %) 78.1 H Lymphocytes % (20.5 - 51.1 %) 12.1 L Monocytes % (1.7 - 9.3 %) 8.4 Eosinophils % (0 - 5 %) 1.1 Basophils % (0.0 - 2.0 %) 0.3 Absolute Granulocytes (1.4 - 6.5 /CUMM) 6.1 Absolute Lymphocytes (1.2 - 3.4 /CUMM) 1.0 L Absolute Monocytes (0.10 - 0.60 /CUMM) 0.7 H Absolute Eosinophils (0.0 - 0.7 /CUMM) 0.1 Absolute Basophils (0.0 - 0.2 /CUMM) 0 Miscellaneous Phlebotomy Draw Site LEFT RADIAL Exam General Appearance: lethargic, minimally responsive Respiratory: decreased breath sounds, b/l crackles Cardiovascular: regular rate/rhythm, edema Gastrointestinal: normal bowel sounds, soft Extremities: pedal edema Current Medications: Current Medications Sig/Courtney Start time Last Medication Dose Route Stop Time Status Admin Acetaminophen 1,000 MG Q6P PRN 11/03 1000 AC IV Albuterol Sulfate 3 ML BID 11/03 2099 AC 11/07 INH 0759 Aspirin 81 MG DAILY 11/04 899 11/07 PO 1000 Ceftriaxone Sodium 1,000 MG DAILY 11/04 2099 AC 11/07 IV 1000 Dextrose 25 GM ONCE ONE 11/06 1944 DC 11/06 IV 11/06 Dextrose/Sodium 1,000 ML Q20H 11/07 744 DC 11/07 Chloride IV 11/08 0344 1004 Dextrose/Sodium 1,000 ML Q20H 11/06 2014 DC 11/06 Chloride IV 11/07 1614 2015 Magnesium Sulfate 1 GM ONCE ONE 11/07 744 11/07 Dextrose/Water 100 ML IV 11/07 1144 1001 Montelukast Sodium 10 MG DAILY 11/04 0900 AC 11/07 PO 1000 Polyethylene Glycol 17 GM DAILY PRN 11/03 1030 AC 11/06 PO 0944 Potassium Chloride 20 MEQ ONCE ONE 11/07 0800 DC 11/07 PO 11/07 0801 1000 Potassium Chloride 40 MEQ 50 MLS/HR 11/07 0745 CAN IV Rosuvastatin Calcium 5 MG AT BEDTIME 11/04 2100 AC 11/06 PO 2034 Valproate Sodium 250 MG Q8 11/06 1400 AC 11/07 Sodium Chloride 50 ML IV 0512 Vancomycin HCl 1,000 MG 1000 11/05 1045 AC 11/07 Sodium Chloride 250 ML IV 1001 Impression/Plan Impression/Problem List Impression: 72-year-old woman with past medical history of HFpEF (>70%, in 05/2017), history aortic stenosis, CVA, breast cancer status post right lumpectomy and radiation, 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 Patient is currently being treated in the ICU for the following issues: RESPIRATORY Acute hypoxic respiratory failure, secondary to pneumonia (Moraxella catarrhalis , MRSA) Patient continues to be oxygen dependent. continue IV ceftriaxone as well as IV vancomycin, TRC/nebs. INFECTIOUS DISEASE Pneumonia, as mentioned above. CARDIOLOGY HFpEF, severely edematous Avoid aggressive IVF, will DC IVF HEMATOLOGY Anemia, s/p transfusion with 1 U PRBC, h/h stable today 9.0 Thrombocytopenia stable today at 80, differentials: sepsis (being treated for); HIT (stopped Heparin, antibodies sent) METABOLIC Hypokalemia, today K at 3.7,repleted Continue to keep K at 4, Mg at 2, Phos at 4 (today at 3) accuchecks ALIMENTARY started on Vital AF at slow rate aspiration precautions 80,78,75 Nutrition consult NEPHROLOGY stable NEUROLOGY Continues to be very drowsy, minimally arousable to pain. on IV Depacon Diet:Tube feeds DVT prophylaxis: ALPS only (low plt) Code status: Full code IV access: PICC placed yesterday (11/05/17) on Left very poor prognosis, continue goals of care discussion Problem List: 1. Altered mental status 2. Schizophrenia 3. Acute diastolic CHF (congestive heart failure), NYHA class 1 4. Hypothermia 5. Thrombocytopenia Pain Ratin Tomorrow's Labs & Rationales: bep Plan DVT/Prophylaxis: mechanical
--- NOTE | 2017-11-07 10:21 | PN- Infect Dx ---
Subjective Subjective: This patient is a 72-year-old white female old medical problems currently being treated for Moraxella and MRSA pneumonia. The patient is more verbal today will respond to yes or no questions. May be close to her baseline. Review of Systems Comments: 12 point review is limited by patient's condition Objective Last 24 Hrs of Vital Signs/I&O Vital Signs Date Time Temp Pulse Resp B/P B/P Pulse O2 O2 Flow FiO2 Mean Ox Delivery Rate 11/07 0809 97 Nasal 2.0L Cannula 11/07 08 95 Nasal 2.0L Cannula 11/07 0400 96 Nasal 2.0L Cannula 11/07 0345 92 Nasal 2.0L Cannula 11/07 0000 92 Nasal 1.0L Cannula 11/06 2358 97.2 78 22 138/00 92 Nasal 1.0L Cannula 11/06 2126 97 Nasal 2.0L Cannula 11/06 2000 96 Nasal 1.0L Cannula 11/06 1600 96 Nasal 1.0L Cannula 11/06 1600 97.1 78 14 108/00 96 Nasal 1.0L Cannula 11/06 1200 99 Nasal 1.0L Cannula Intake & Output 11/07 1600 11/07 0800 06 0000 Intake Total 453 156 Output Total 175 300 Balance 278 -144 Intake, IV 453 156 Output, Urine 175 300 Physical Exam Other Physical Findings: Awake alert and oriented 0 - more responsive to verbal stimuli Pupils equal and reactive to light and accommodation Moist mucous membranes neck is supple no JVD Lungs are consistent with diffuse rhonchi Abdomen is soft nontender nondistended Lower extremity wound VAC in place Results Last 24 Hours of Lab Results: Laboratory Tests 11/07 11/06 0400 1215 Blood Gas pH (7.35 - 7.45 PH) 7.43 pCO2 (35 - 45 TORR) 47 H pO2 (80 - 100 TORR) 81 HCO3 (21 - 28 MEQ/L) 31 H ABG O2 Sat (Measured) (>96.0 %) 95.0 L P-50 (Temp Corrected) N Carboxyhemoglobin (1.5 - 5.0 %) 0.5 L O2 Concentration % 1.5LPM O2 Delivery Method NC Chemistry Sodium (137 - 145 mmol/L) 142 Potassium (3.5 - 5.1 mmol/L) 3.7 Chloride (98 - 107 mmol/L) 102 Carbon Dioxide (22 - 30 mmol/L) 34 H Anion Gap (5 - 16) 6 BUN (7 - 17 mg/dL) 10 Creatinine (0.5 - 1.0 mg/dL) 0.6 Estimated GFR (>60 ml/min) > 60 Glucose (65 - 99 mg/dL) 84 Calcium (8.4 - 10.2 mg/dL) 8.8 Phosphorus (2.5 - 4.5 mg/dL) 3.1 Magnesium (1.6 - 2.3 mg/dL) 1.9 Total Bilirubin (0.2 - 1.3 mg/dL) 0.2 AST (14 - 36 U/L) 18 ALT (9 - 52 U/L) 26 Albumin (3.5 - 5.0 g/dL) 2.3 L Hematology CBC w Diff NO MAN DIFF REQ WBC (4.8 - 10.8 /CUMM) 7.9 RBC (4.20 - 5.40 /CUMM) 3.20 L Hgb (12.0 - 16.0 G/DL) 9.0 L Hct (37 - 47 %) 27.3 L MCV (81.0 - 99.0 FL) 85.2 MCH (27.0 - 31.0 PG) 28.2 MCHC (33.0 - 37.0 G/DL) 33.1 RDW (11.5 - 14.5 %) 19.3 H Plt Count (130 - 400 /CUMM) 80 L MPV (7.4 - 10.4 FL) 8.1 Gran % (42.2 - 75.2 %) 78.1 H Lymphocytes % (20.5 - 51.1 %) 12.1 L Monocytes % (1.7 - 9.3 %) 8.4 Eosinophils % (0 - 5 %) 1.1 Basophils % (0.0 - 2.0 %) 0.3 Absolute Granulocytes (1.4 - 6.5 /CUMM) 6.1 Absolute Lymphocytes (1.2 - 3.4 /CUMM) 1.0 L Absolute Monocytes (0.10 - 0.60 /CUMM) 0.7 H Absolute Eosinophils (0.0 - 0.7 /CUMM) 0.1 Absolute Basophils (0.0 - 0.2 /CUMM) 0 Miscellaneous Phlebotomy Draw Site LEFT RADIAL Last 24 Hours of Neo Results: No new cultures Recent Imaging Studies: No new radiologic studies Assessment/Plan ID Impression: This patient is a 72-year-old white female with MRSA and Moraxella pneumonia. She has remained afebrile and her white blood cell count is normal. The patient is on day 4 of ceftriaxone and day 3 of vancomycin. She has no features of infection and appears to be improving. Unclear if this is her baseline. Suggestion: 1. Continue vancomycin and ceftriaxone 2. Monitor vancomycin dosage with potential adjustment
--- NOTE | 2017-11-07 10:36 | PN- Pulmonary ---
Subjective HPI/Critical Care Issues: Patient remains lethargic but reportedly is intermittently conversant. She is unsafe to eat. Respiratory status is remains stable Objective Current Medications: Current Medications Sig/Courtney Start time Last Medication Dose Route Stop Time Status Admin Acetaminophen 1,000 MG Q6P PRN 11/03 1000 AC IV Albuterol Sulfate 3 ML BID 11/03 2100 AC 11/07 INH 0759 Aspirin 81 MG DAILY 11/04 0900 AC 11/07 PO 1000 Ceftriaxone Sodium 1,000 MG DAILY 11/04 2100 AC 11/07 IV 1000 Dextrose 25 GM ONCE ONE 11/06 1945 DC 11/06 IV 11/06 1946 195 Dextrose/Sodium 1,000 ML Q20H 11/07 0745 DC 11/07 Chloride IV 11/08 0344 1004 Dextrose/Sodium 1,000 ML Q20H 11/06 2014 DC 11/06 Chloride IV 11/07 1614 2016 Magnesium Sulfate 1 GM ONCE ONE 11/07 0745 AC 11/07 Dextrose/Water 100 ML IV 11/07 1144 1001 Montelukast Sodium 10 MG DAILY 11/04 0900 AC 11/07 PO 1000 Polyethylene Glycol 17 GM DAILY PRN 11/03 1030 AC 11/06 PO 0944 Potassium Chloride 20 MEQ ONCE ONE 11/07 0800 DC 11/07 PO 11/07 0801 1000 Potassium Chloride 40 MEQ 50 MLS/HR 11/07 0745 CAN IV Rosuvastatin Calcium 5 MG AT BEDTIME 11/04 2100 AC 11/06 PO 2034 Valproate Sodium 250 MG Q8 11/06 1400 AC 11/07 Sodium Chloride 50 ML IV 0512 Vancomycin HCl 1,000 MG 1000 11/05 1045 AC 11/07 Sodium Chloride 250 ML IV 1001 Vital Signs & I&O Last 24 Hrs of Vitals and I&O: Vital Signs Date Time Temp Pulse Resp B/P B/P Pulse O2 O2 Flow FiO2 Mean Ox Delivery Rate 11/07 0809 97 Nasal 2.0L Cannula 11/07 0800 95 Nasal 2.0L Cannula 11/07 0400 96 Nasal 2.0L Cannula 11/07 0345 92 Nasal 2.0L Cannula 11/07 0000 92 Nasal 1.0L Cannula 11/06 2358 97.2 78 22 138/00 92 Nasal 1.0L Cannula 11/06 2126 97 Nasal 2.0L Cannula 11/06 2000 96 Nasal 1.0L Cannula 11/06 1600 96 Nasal 1.0L Cannula 11/06 1600 97.1 78 14 108/00 96 Nasal 1.0L Cannula 11/06 1200 99 Nasal 1.0L Cannula Intake & Output 11/07 1600 11/07 0800 11/07 0000 Intake Total 453 156 Output Total 175 300 Balance 278 -144 Intake, IV 453 156 Output, Urine 175 300 Oxygen saturation 2 L 97% exam for chest shows rare rhonchi cardiac exam shows regular S1 and S2 without murmurs abdomen is soft nontender Impression/Plan Impression/Plan Impression/Plan: 72-year-old persistently abnormal mental status which may be her baseline treated with antibiotics for pneumonia is unsafe to eat. Recommendations: Start low-dose enteral tube feedings with aspiration precautions complete anabiotic Taper FiO2 his saturations allow
[2017-11-07 16:00] VITALS: BP 105/50
[2017-11-08] VITALS: BP 112/0
[2017-11-08 04:31] LABS: ABSOLUTE BASOPHIL COUNT 0 /CUMM (0.0-0.2); ABSOLUTE EOSINOPHIL COUNT 0.1 /CUMM (0.0-0.7); ABSOLUTE GRANULOCYTE CT 6.2 /CUMM (1.4-6.5); ABSOLUTE LYMPH COUNT 0.8 /CUMM (1.2-3.4); ABSOLUTE MONOCYTE COUNT 0.6 /CUMM (0.10-0.60); BASOPHIL % 0.2 % (0.0-2.0); EOSINOPHIL % 1.3 % (0-5); HEMATOCRIT 27.6 % (37-47); MEAN CORPUSCULAR HGB 28.2 PG (27.0-31.0); MEAN CORPUSCULAR HGB CONC 33.2 G/DL (33.0-37.0); MEAN PLATELET VOLUME 7.7 FL (7.4-10.4); PLATELET COUNT 80 /CUMM (130-400); RBC DISTRIBUTION WIDTH 19.2 % (11.5-14.5); RED BLOOD CELL CT 3.25 /CUMM (4.20-5.40); WHITE BLOOD CELL COUNT 7.7 /CUMM (4.8-10.8)
--- NOTE | 2017-11-08 07:45 | PN- Resident CRCU ---
Subjective HPI/CRCU Issues: Acute hypoxic respiratory failure MRSA/Moraxella PNA AMS 2/2 toxic encephalopathy Hypothermia (improved) NO overnight event. Patient was resting when I examine her, no acute distress. Continues to be minimally responsive to command, cough intermittently with sounds of sputum in throat. Objective Vital Signs & I&O Last 8 Hrs of Vitals and I&O: Intake & Output 11/08 0800 Intake Total 295 Output Total 160 Balance 135 Intake, IV 55 Intake, Tube 140 Feeding Intake, Tube 100 Irrigant Number 0 Bowel Movements Output, Urine 160 Exam General Appearance: no apparent distress, lethargic Head: atraumatic, normal appearance Respiratory: decreased breath sounds Cardiovascular: regular rate/rhythm Gastrointestinal: mass, decreased BS Extremities: BLE +3 edema Current Medications: Current Medications Sig/Courtney Start time Last Medication Dose Route Stop Time Status Admin Acetaminophen 1,000 MG Q6P PRN 11/03 1000 AC IV Albuterol Sulfate 3 ML BID 11/03 2099 AC 11/08 INH 0447 Alteplase, 2 MG ONE ONE 11/08 729 DC Recombinant IV 11/08 730 Alteplase, 2 MG ONE ONE 11/08 729 DC Recombinant IV 11/08 0731 Aspirin 81 MG DAILY 11/04 0900 AC 11/07 PO 1000 Ceftriaxone Sodium 1,000 MG DAILY 11/04 2099 AC 11/07 IV 1000 Dextrose/Sodium 1,000 ML Q20H 11/07 07 DC 11/07 Chloride IV 11/08 0344 1004 Dextrose/Sodium 1,000 ML Q20H 11/06 2014 DC 11/06 Chloride IV 11/07 1614 2016 Magnesium Sulfate 1 GM ONCE ONE 11/07 744 DC 11/07 Dextrose/Water 100 ML IV 11/07 1144 1001 Montelukast Sodium 10 MG DAILY 11/04 0900 AC 11/07 PO 1000 Polyethylene Glycol 17 GM DAILY PRN 11/03 1030 AC 11/06 PO 0944 Potassium Chloride 20 MEQ ONCE ONE 11/08 644 DC 11/08 PO 11/08 0646 0654 Potassium Chloride 20 MEQ ONCE ONE 11/07 0800 DC 11/07 PO 11/07 0801 1000 Potassium Chloride 40 MEQ 50 MLS/HR 11/07 0745 CAN IV Rosuvastatin Calcium 5 MG AT BEDTIME 11/04 2100 AC 11/07 PO 2204 Valproate Sodium 250 MG Q8 11/06 1400 AC 11/08 Sodium Chloride 50 ML IV 0542 Vancomycin HCl 1,000 MG 1000 11/05 1045 AC 11/07 Sodium Chloride 250 ML IV 1001 Impression/Plan Impression/Problem List Impression: On admission to ICU, Vitals: T 96.1 trending up, pulse 66, RR 20, blood pressure 80s/50s, saturating on nasal cannula 6.0% -CBC: WBC 5.5, H/H9 0.5/28.9 stable, PLT 133, bandemia 21 -BMP: Unremarkable without lactic acidosis, TSH slightly decreased 0.267, free T4 normal -UA/Microbiology: Pyuria/LE and nitrites positive -Misc: Valproic acid 56.9 within therapeutic range -ABG 7.4 49/100/41 on 6 L nasal cannula -Chest CT showed multifocal airspace disease with left lower lobe consolidation and volume loss, possibly pneumonia. 4.8 cm partially calcified right thyroid nodule. Positive for umbilical hernia as well. -Interventions in ER: Clindamycin/vancomycin/ciprofloxacin 1, IV fluids, dextrose push Problem list/Assessment/Hospital Course: #HCAP 2/2 MRSA/Morexella PNA #Sepsis (hypothermia, leukopenia/bandemia, source of infection), resolved #Sickle impaction versus umbilical hernia #Thrombocytopenia 2/2 sepsis??/Heparin? #Acute hypoxic respiratory failure, resolving #asymptomatic bacteruria/UTI? #Altered mental status 2/2 toxic/metabolic encephalopathy, improving #History of large thyroid/goiter with mass-effect on trachea #HFpEF, LVEF > 70% (05/2017) with mild/moderate left ear, stage I diastolic dysfunction #Bipolar disorder/schizoaffective disorder #Breast cancer S/P right lumpectomy #History of CVA VS: VSS overnight In/Out in 24hr: 2190/490, with farr, retaining fluid? Sedation: none Respiratory/infection: for MRSA (day 4) culture from sputum per ID recommendation candidate for mucomyst per RT - PICC line placement done, femoral line removed 11/05 Infection: As above Cardio: History of HFPEF, with stage I diastolic dysfunction, patient was at baseline edematous, and based on the intake/output the last 24 hours, patient may be retaining fluid, however no new findings on physical examination. Hem: Patient's hemoglobin stablized at 9.2 on latest lab, without any active signs of bleeding - s/p 1U PRBC 11/05 - PLT 80 stable, pending HIT antibodies. - Nose bleeding from NGT over the weekend (no trauma/bleeding during insertion). Prob 2/2 low PLT. Metabolism: Patient appeared to be mildly hypothyroidism with 0.267, however normal T4 1.64. Per patient's daughter, patient had been on the lower end of body temperature in the past. Alimentary: Neuro: monitor total, spreading to every 8 hour IV infusion. Patient was taking Depakote at home for mental etiology, not seizure precaution. -Due to patient's AMS was not significantly improving, will DC all AMS-related meds including depakote and Singulair. - Repeat Head C to rule out any acute issue. - neuro consult PRN DVT prophylaxis: Pharm PPX + ALPS Tube Feeding Vital AF. Full Code Problem List: 1. HCAP (healthcare-associated pneumonia) Pain Ratin Tomorrow's Labs & Rationales: ICU/CBC Plan DVT/Prophylaxis: mechanical
--- NOTE | 2017-11-08 10:05 | PN- CRCU ---
Subjective HPI/Critical Care Issues: NO overnight event. Patient was resting when I examine her, no acute distress. Continues to be minimally responsive to command, cough intermittently with sounds of sputum in throat. Objective Current Medications: Current Medications Sig/Courtney Start time Last Medication Dose Route Stop Time Status Admin Acetaminophen 1,000 MG Q6P PRN 11/03 1000 AC IV Albuterol Sulfate 3 ML BID 11/03 2100 AC 11/08 INH 0843 Alteplase, 2 MG ONE ONE 11/08 729 DC Recombinant IV 11/08 0731 Alteplase, 2 MG ONE ONE 11/08 0630 DC Recombinant IV 11/08 0731 Aspirin 81 MG DAILY 11/04 0900 AC 11/07 PO 1000 Ceftriaxone Sodium 1,000 MG DAILY 11/04 2100 AC 11/07 IV 1000 Dextrose/Sodium 1,000 ML Q20H 11/07 0745 DC 11/07 Chloride IV 11/08 0344 1004 Magnesium Sulfate 1 GM ONCE ONE 11/07 0745 DC 11/07 Dextrose/Water 100 ML IV 11/07 1144 1001 Montelukast Sodium 10 MG DAILY 11/04 0900 AC 11/07 PO 1000 Polyethylene Glycol 17 GM DAILY PRN 11/03 1030 AC 11/06 PO 0944 Potassium Chloride 20 MEQ ONCE ONE 11/08 0645 DC 11/08 PO 11/08 0646 0654 Rosuvastatin Calcium 5 MG AT BEDTIME 11/04 2100 AC 11/07 PO 2204 Valproate Sodium 250 MG Q8 11/06 1400 AC 11/08 Sodium Chloride 50 ML IV 0542 Vancomycin HCl 1,000 MG 1000 11/05 1045 AC 11/07 Sodium Chloride 250 ML IV 1001 Vital Signs & I&O Last 24 Hrs of Vitals and I&O: Vital Signs Date Time Temp Pulse Resp B/P B/P Pulse O2 O2 Flow FiO2 Mean Ox Delivery Rate 11/08 0911 95 Nasal 2.0L Cannula 11/08 0800 97 Nasal 2.0L Cannula 11/08 0504 93 Nasal 2.0L Cannula 11/08 0400 93 Nasal 2.0L Cannula 11/08 0000 95 Nasal 2.0L Cannula 11/08 0000 96.0 70 16 112/0 95 Nasal 2.0L Cannula 11/07 2304 96 Nasal 1.0L Cannula 11/07 2000 100 Nasal 2.0L Cannula 11/07 1600 97 Nasal 2.0L Cannula 11/07 1600 96.8 66 11 105/50 98 Nasal 2.0L Cannula 11/07 1200 96 Nasal 2.0L Cannula Intake & Output 11/08 1600 11/08 0800 11/08 0000 Intake Total 295 125 Output Total 160 130 Balance 135 -5 Intake, IV 55 55 Intake, Tube 140 70 Feeding Intake, Tube 100 Irrigant Number 0 Bowel Movements Output, Urine 160 130 Patient 172 lb Weight Laboratory Tests 11/08 11/07 0335 0400 Chemistry Sodium (137 - 145 mmol/L) 144 142 Potassium (3.5 - 5.1 mmol/L) 3.9 3.7 Chloride (98 - 107 mmol/L) 102 102 Carbon Dioxide (22 - 30 mmol/L) 37 H 34 H Anion Gap (5 - 16) 5 6 BUN (7 - 17 mg/dL) 13 10 Creatinine (0.5 - 1.0 mg/dL) 0.6 0.6 Estimated GFR (>60 ml/min) > 60 > 60 BUN/Creatinine Ratio (7 - 25 %) 21.7 Glucose (65 - 99 mg/dL) 84 Calcium (8.4 - 10.2 mg/dL) 8.8 Phosphorus (2.5 - 4.5 mg/dL) 3.1 Magnesium (1.6 - 2.3 mg/dL) 2.0 1.9 Total Bilirubin (0.2 - 1.3 mg/dL) 0.2 AST (14 - 36 U/L) 18 ALT (9 - 52 U/L) 26 Albumin (3.5 - 5.0 g/dL) 2.3 L Hematology CBC w Diff NO MAN DIFF REQ NO MAN DIFF REQ WBC (4.8 - 10.8 /CUMM) 7.7 7.9 RBC (4.20 - 5.40 /CUMM) 3.25 L 3.20 L Hgb (12.0 - 16.0 G/DL) 9.2 L 9.0 L Hct (37 - 47 %) 27.6 L 27.3 L MCV (81.0 - 99.0 FL) 85.0 85.2 MCH (27.0 - 31.0 PG) 28.2 28.2 MCHC (33.0 - 37.0 G/DL) 33.2 33.1 RDW (11.5 - 14.5 %) 19.2 H 19.3 H Plt Count (130 - 400 /CUMM) 80 L 80 L MPV (7.4 - 10.4 FL) 7.7 8.1 Gran % (42.2 - 75.2 %) 80.0 H 78.1 H Lymphocytes % (20.5 - 51.1 %) 11.0 L 12.1 L Monocytes % (1.7 - 9.3 %) 7.5 8.4 Eosinophils % (0 - 5 %) 1.3 1.1 Basophils % (0.0 - 2.0 %) 0.2 0.3 Absolute Granulocytes (1.4 - 6.5 /CUMM) 6.2 6.1 Absolute Lymphocytes (1.2 - 3.4 /CUMM) 0.8 L 1.0 L Absolute Monocytes (0.10 - 0.60 /CUMM) 0.6 0.7 H Absolute Eosinophils (0.0 - 0.7 /CUMM) 0.1 0.1 Absolute Basophils (0.0 - 0.2 /CUMM) 0 0 06/ 1215 Blood Gas pH (7.35 - 7.45 PH) 7.43 pCO2 (35 - 45 TORR) 47 H pO2 (80 - 100 TORR) 81 HCO3 (21 - 28 MEQ/L) 31 H ABG O2 Sat (Measured) (>96.0 %) 95.0 L P-50 (Temp Corrected) N Carboxyhemoglobin (1.5 - 5.0 %) 0.5 L O2 Concentration % 1.5LPM O2 Delivery Method NC Miscellaneous Phlebotomy Draw Site LEFT RADIAL Impression/Plan Impression/Plan Impression/Plan: This is a 72-year-old lady who resides in a snf with schizoaffective disorder, previous CVA, wheelchair bound, heart failure with preserved ejection fraction, significant aortic stenosis, goiter, previous radioactive iodine treatment, history of breast cancer with lumpectomy and radiation, chronic hyponatremia, multiple hospitalizations for aspiration pneumonia and hypothermia , came into the hospital with cough shortness of breath and bandemia. The chest CT which was done in the emergency room showed bilateral pulmonary infiltrates with left lower lobe infiltrate which appears to be chronic. She was given intravenous fluids and antibiotics and was transferred to the ICU. In the emergency room she was noted to be hypothermic and hypotensive and subsequently admitted to the ICU, since admission now has slightly improved, General Appearance: lethargic, not very responsive to conversation. AO x 0 on admission Head: atraumatic, normal appearance Ears, Nose, Throat: normal ENT inspection Neck: normal inspection, limited range of motion Respiratory: chest non-tender, crackles, rhonchi Cardiovascular: regular rate/rhythm Gastrointestinal: normal bowel sounds, firm ab w/ palpable mass Extremities: bilateral edematous +3 and an abrasion to the left upper lateral saldana draining yellow fluid in ER, now has pink dressing on it Neurologic/Psych: more awake since yesterday IMPRESSION/ ISSUES Improving sepsis most likely related to bilateral recurrent pneumonia. SPutum prob moraxella now has staph aureus awell, now on abx Persistant lethargy need to rule out licensed professional counselor causes Prob recurrent aspiration, now has Ng tube with tube feeding Previous history of heart failure but no clinical evidence suggestive of heart failure at this time Worsening performance status, recurrent hypothermia rule out hypoglycemia and adrenal insufficiency (previously been ruled out) Compensated hypercarbic respiratory failure with hypoxemia due to bilateral pneumonia and polypharmacy Goiter substernal appears to be stable no new change Thrombocytopenia rule out HIT with anemia RECOMMENDATION Cont abx Per ID Cont chest PT Cont to check FSG Hold tube feeding for now and obtain a Head CT and then can restart Dc valporate, montelukast, Venodyne boots Agg pulm toilet Keep in icu Critically ill still, tts 37 mins Will follow closely and may need a neuro eval if mental status does not improve
--- NOTE | 2017-11-08 10:47 | PN- Infect Dx ---
Subjective Subjective: Afebrile without complaints, though she is unable to provide any reliable history. Objective Last 24 Hrs of Vital Signs/I&O Vital Signs Date Time Temp Pulse Resp B/P B/P Pulse O2 O2 Flow FiO2 Mean Ox Delivery Rate 11/08 0911 95 Nasal 2.0L Cannula 11/08 0800 97 Nasal 2.0L Cannula 11/08 0504 93 Nasal 2.0L Cannula 11/08 0400 93 Nasal 2.0L Cannula 11/08 0000 95 Nasal 2.0L Cannula 11/08 0000 96.0 70 16 112/0 95 Nasal 2.0L Cannula 11/07 2304 96 Nasal 1.0L Cannula 11/07 2000 100 Nasal 2.0L Cannula 11/07 1600 97 Nasal 2.0L Cannula 11/07 1600 96.8 66 11 105/50 98 Nasal 2.0L Cannula 11/07 1200 96 Nasal 2.0L Cannula Intake & Output 11/08 1600 11/08 0800 11/08 0000 Intake Total 295 125 Output Total 160 130 Balance 135 -5 Intake, IV 55 55 Intake, Tube 140 70 Feeding Intake, Tube 100 Irrigant Number 0 Bowel Movements Output, Urine 160 130 Patient 172 lb Weight Physical Exam Other Physical Findings: She is lethargic but responsive, with mumbling, incoherent speech HEENT NG tube is in place, with ongoing feedings Lungs scattered rhonchi bilaterally Heart regular rhythm with no murmur Extremities edema of both upper extremities; PICC in the left upper extremity with no inflammation at the site Cheek catheter remains in place Results Last 24 Hours of Lab Results: Laboratory Tests 11/08 0335 Chemistry Sodium (137 - 145 mmol/L) 144 Potassium (3.5 - 5.1 mmol/L) 3.9 Chloride (98 - 107 mmol/L) 102 Carbon Dioxide (22 - 30 mmol/L) 37 H Anion Gap (5 - 16) 5 BUN (7 - 17 mg/dL) 13 Creatinine (0.5 - 1.0 mg/dL) 0.6 Estimated GFR (>60 ml/min) > 60 BUN/Creatinine Ratio (7 - 25 %) 21.7 Magnesium (1.6 - 2.3 mg/dL) 2.0 Hematology CBC w Diff NO MAN DIFF REQ WBC (4.8 - 10.8 /CUMM) 7.7 RBC (4.20 - 5.40 /CUMM) 3.25 L Hgb (12.0 - 16.0 G/DL) 9.2 L Hct (37 - 47 %) 27.6 L MCV (81.0 - 99.0 FL) 85.0 MCH (27.0 - 31.0 PG) 28.2 MCHC (33.0 - 37.0 G/DL) 33.2 RDW (11.5 - 14.5 %) 19.2 H Plt Count (130 - 400 /CUMM) 80 L MPV (7.4 - 10.4 FL) 7.7 Gran % (42.2 - 75.2 %) 80.0 H Lymphocytes % (20.5 - 51.1 %) 11.0 L Monocytes % (1.7 - 9.3 %) 7.5 Eosinophils % (0 - 5 %) 1.3 Basophils % (0.0 - 2.0 %) 0.2 Absolute Granulocytes (1.4 - 6.5 /CUMM) 6.2 Absolute Lymphocytes (1.2 - 3.4 /CUMM) 0.8 L Absolute Monocytes (0.10 - 0.60 /CUMM) 0.6 Absolute Eosinophils (0.0 - 0.7 /CUMM) 0.1 Absolute Basophils (0.0 - 0.2 /CUMM) 0 Last 24 Hours of Neo Results: Sputum culture November 03 positive for Moraxella catarrhalis and MRSA Assessment/Plan ID Impression: Condition remains poor, though stable, with slight improvement in her mental status, though she remains quite lethargic. She remains afebrile with a normal white blood cell count on Vancomycin and Ceftriaxone, Day 5 of treatment for presumed aspiration pneumonia, with multilobar densities on her CT scan and with her sputum culture positive for Moraxella and MRSA. She remains thrombocytopenic, possibly secondary to sepsis versus medications. Suggestion: 1. Reevaluate all of her medications in view of her thrombocytopenia 2. Vancomycin trough level with her next dose 3. Continue Vancomycin and Ceftriaxone
[2017-11-08 11:26] LABS: HEPARIN INDUCED PLATELET AB NEGATIVE (NEGATIVE)
--- NOTE | 2017-11-08 15:58 | Event Note ---
Event Note Event Note: Patient's daughter presented at bedside for visit while patient was sent down to Head CT today around 1500. A detailed discussion with the daughter regarding current plan of care was carried out, espeically regarding patient's code status that, in very unlikely case, a full resuscitation effort including chest compression/intubation, would infer more harm on long-term care of patient including broken rib, compromised breathing with much less likely chance of recovery, and potentially with significantly hindered life quality in a long-term. Weighing risk/benefit, daughter was encouraged to reconsider the current Full Code status. Daughter agreed that DNR/DNI would be the most suitable choice for patient. She also acknowledged all current treatment plans. All her current questions were answered in detail. The daughter will be kept up-to-date about decisions and change of clinical course.
[2017-11-08 16:00] VITALS: BP 112/00
--- NOTE | 2017-11-08 16:00 | CT SCAN REPORT ---
EXAMINATION: CT HEAD WITHOUT CONTRAST CLINICAL INFORMATION: AMS from Hospital CAP w/ MRSA/Morxella, on ABx however not improving much on mental status. COMPARISON: Brain MRI 07/11/[address] 05/31/2017. TECHNIQUE: Contiguous axial imaging was performed from the skull base to vertex without intravenous administration of contrast. DLP: 725 mGy-cm. FINDINGS: There is no intracranial hemorrhage, large infarction, or mass lesion. There is no extra-axial collection. This chronic lacunar infarct within the left basal ganglia, right centrum semiovale, and left brachium pontis. There is mild scattered hypoattenuation in the bilateral cerebral white matter, which is nonspecific but likely reflects small vessel disease. There is moderate diffuse brain parenchymal volume loss. There is no evidence of hydrocephalus. The inferior left mastoid air cells are opacified. Visualized paranasal sinuses are clear. IMPRESSION: - No acute intracranial abnormality. - Chronic appearing lacunar infarct in left basal ganglia, right centrum semiovale, and left brachium pontis. - Moderate diffuse brain parenchymal volume loss.
[2017-11-09] VITALS: BP 102/00
[2017-11-09 04:21] LABS: ABSOLUTE BASOPHIL COUNT 0 /CUMM (0.0-0.2); ABSOLUTE EOSINOPHIL COUNT 0.1 /CUMM (0.0-0.7); ABSOLUTE GRANULOCYTE CT 5.3 /CUMM (1.4-6.5); ABSOLUTE LYMPH COUNT 0.9 /CUMM (1.2-3.4); ABSOLUTE MONOCYTE COUNT 0.9 /CUMM (0.10-0.60); BASOPHIL % 0.3 % (0.0-2.0); EOSINOPHIL % 1.1 % (0-5); GRANULOCYTE % 73.5 % (42.2-75.2); HEMATOCRIT 24.6 % (37-47); MEAN CORPUSCULAR HGB 28.1 PG (27.0-31.0); MEAN CORPUSCULAR VOLUME 85.3 FL (81.0-99.0); MEAN PLATELET VOLUME 7.7 FL (7.4-10.4); PLATELET COUNT 91 /CUMM (130-400); RBC DISTRIBUTION WIDTH 19.2 % (11.5-14.5); RED BLOOD CELL CT 2.88 /CUMM (4.20-5.40); WHITE BLOOD CELL COUNT 7.2 /CUMM (4.8-10.8)
--- NOTE | 2017-11-09 07:21 | PN- Resident CRCU ---
Subjective HPI/CRCU Issues: No overnight event. Patient was resting when I examined her, and will wake up to commands with mumbled response. No acute distress, bedside suctioning with whitish sputum, however no obvious choking event. Objective Vital Signs & I&O Last 8 Hrs of Vitals and I&O: Intake & Output 11/09 0800 Intake Total 199 Output Total 200 Balance -1 Intake, Tube 119 Feeding Intake, Tube 80 Irrigant Number 2 Bowel Movements Output, Urine 200 Exam General Appearance: no apparent distress, alert, awake Head: atraumatic, normal appearance Cardiovascular: regular rate/rhythm Gastrointestinal: normal bowel sounds, soft, non-tender, mass Extremities: +3 BLE edematous Current Medications: Current Medications Sig/Courtney Start time Last Medication Dose Route Stop Time Status Admin Acetaminophen 1,000 MG Q6P PRN 11/03 1000 AC IV Albuterol Sulfate 3 ML BID 11/03 2100 AC 11/09 INH 0755 Aspirin 81 MG DAILY 11/04 0900 AC 11/08 PO 0900 Ceftriaxone Sodium 1,000 MG DAILY 11/04 2100 AC 11/08 IV 1035 Dextrose 25 GM ONCE ONE 11/08 1900 DC 11/08 IV 11/08 1901 1909 Montelukast Sodium 10 MG DAILY 11/04 0900 DC 11/07 PO 1000 Nystatin 1 RON TID PRN 11/09 0415 TOP Polyethylene Glycol 17 GM DAILY PRN 11/03 1030 AC 11/06 PO 0944 Rosuvastatin Calcium 5 MG AT BEDTIME 11/04 2100 AC 11/08 PO 2145 Valproate Sodium 250 MG Q8 11/06 1400 DC 11/08 Sodium Chloride 50 ML IV 0542 Vancomycin HCl 1,000 MG 1000 11/05 1045 AC 11/08 Sodium Chloride 250 ML IV 1035 Impression/Plan Impression/Problem List Impression: On admission to ICU, Vitals: T 96.1 trending up, pulse 66, RR 20, blood pressure 80s/50s, saturating on nasal cannula 6.0% -CBC: WBC 5.5, H/H9 0.5/28.9 stable, PLT 133, bandemia 21 -BMP: Unremarkable without lactic acidosis, TSH slightly decreased 0.267, free T4 normal -UA/Microbiology: Pyuria/LE and nitrites positive -Misc: Valproic acid 56.9 within therapeutic range -ABG 7.4 1/49/100/41 on 6 L nasal cannula -Chest CT showed multifocal airspace disease with left lower lobe consolidation and volume loss, possibly pneumonia. 4.8 cm partially calcified right thyroid nodule. Positive for umbilical hernia as well. -Interventions in ER: Clindamycin/vancomycin/ciprofloxacin 1, IV fluids, dextrose push Problem list/Assessment/Hospital Course: #HCAP 2/2 MRSA/Morexella PNA #Sepsis (hypothermia, leukopenia/bandemia, source of infection), resolved #Sickle impaction versus umbilical hernia #Thrombocytopenia 2/2 sepsis??/Heparin? #Acute hypoxic respiratory failure, resolving #asymptomatic bacteruria/UTI? 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 Sedation: none [id number]: LRS: Moraxella, MRSA Respiratory/infection: for MRSA (day 5) culture from sputum per ID recommendation. Remained stable afebrile - Pending Vanco trough today candidate for mucomyst per RT. Bedside oral suctioning PRN. - PICC line placement done, femoral line removed 11/05 Infection: As above Cardio: History of HFPEF, with stage I diastolic dysfunction, patient was at baseline edematous, and based on the intake/output the last 24 hours, patient may be retaining fluid, however no new findings on physical examination. Hem: Patient's hemoglobin 9.2->8.1 on latest lab, without any active signs of bleeding - s/p 1U PRBC 11/05 - PLT 80 -> 91 stable, HIT antibodies negative, will hold VTE pharm PPX for now. - Nose bleeding from NGT over the weekend (no trauma/bleeding during insertion). Prob 2/2 low PLT. Currently dried without any active bleeding. Will continue to monitor. Metabolism: Patient appeared to be mildly hypothyroidism with 0.267, however normal T4 1.64. Per patient's daughter, patient had been on the lower end of body temperature in the past. Alimentary: nutritional consult. Neuro: especially when daughter was at bedside. Will continue monitor. -Head CT 11/08 showed no acute process, mostly Chronic appearing lacunar infarct in left basal ganglia, right centrum semiovale, and left brachium pontis. Moderate diffuse brain parenchymal volume loss. total, spreading to every 8 hour IV infusion. Patient was taking Depakote at home for mental etiology, not seizure precaution. -Due to patient's AMS was not significantly improving, we have DCed all AMS- related meds including depakote and Singulair. - neuro consult PRN DVT prophylaxis: ALPS Tube Feeding Jevity 1.2. IV Access: PICC + Peripheral IV DNR/DNI Problem List: 1. HCAP (healthcare-associated pneumonia) Pain Ratin Tomorrow's Labs & Rationales: ICU/CBC Plan DVT/Prophylaxis: mechanical
[2017-11-09 08:00] VITALS: BP 130/0
--- NOTE | 2017-11-09 09:51 | PN- CRCU ---
Subjective HPI/Critical Care Issues: No overnight event. Patient was resting when I examined her, and will wake up to commands with mumbled response. No acute distress, bedside suctioning with whitish sputum, however no obvious choking event. HEad ct IMPRESSION: - No acute intracranial abnormality. - Chronic appearing lacunar infarct in left basal ganglia, right centrum semiovale, and left brachium pontis. - Moderate diffuse brain parenchymal volume loss. DICTATED BY: Evita Posadas MD DATE/TIME DICTATED:11/08/171552 Objective Current Medications: Current Medications Sig/Courtney Start time Last Medication Dose Route Stop Time Status Admin Acetaminophen 1,000 MG Q6P PRN 11/03 1000 AC IV Albuterol Sulfate 3 ML BID 11/03 2100 AC 11/09 INH 0755 Aspirin 81 MG DAILY 11/04 0900 AC 11/09 PO 0909 Ceftriaxone Sodium 1,000 MG DAILY 11/04 2100 AC 11/09 IV 0909 Dextrose 25 GM ONCE ONE 11/08 1900 DC 11/08 IV 11/08 1901 1909 Furosemide 20 MG ONCE ONE 11/09 0845 DC 11/09 IV 11/09 0846 0909 Montelukast Sodium 10 MG DAILY 11/04 0900 DC 11/07 PO 1000 Nystatin 1 RON TID PRN 11/09 0415 AC 11/09 TOP 0909 Polyethylene Glycol 17 GM DAILY PRN 11/03 1030 AC 11/06 PO 0944 Rosuvastatin Calcium 5 MG AT BEDTIME 11/04 2100 AC 11/08 PO 2145 Valproate Sodium 250 MG Q8 11/06 1400 DC 11/08 Sodium Chloride 50 ML IV 0542 Vancomycin HCl 1,000 MG 1000 11/05 1045 AC 11/09 Sodium Chloride 250 ML IV 0910 Laboratory Tests 11/09 11/09 11/09 0915 0500 0355 Chemistry Sodium (137 - 145 mmol/L) Cancelled 145 Potassium (3.5 - 5.1 mmol/L) Cancelled 3.8 Chloride (98 - 107 mmol/L) Cancelled 103 Carbon Dioxide (22 - 30 mmol/L) Cancelled 38 H Anion Gap (5 - 16) Cancelled 4 L BUN (7 - 17 mg/dL) Cancelled 13 Creatinine (0.5 - 1.0 mg/dL) Cancelled 0.6 Estimated GFR (>60 ml/min) > 60 BUN/Creatinine Ratio Cancelled Glucose (65 - 99 mg/dL) 86 Calcium (8.4 - 10.2 mg/dL) 8.5 Phosphorus (2.5 - 4.5 mg/dL) 3.4 Magnesium (1.6 - 2.3 mg/dL) 1.8 Total Bilirubin (0.2 - 1.3 mg/dL) 0.2 AST (14 - 36 U/L) 17 ALT (9 - 52 U/L) 20 Albumin (3.5 - 5.0 g/dL) 2.1 L Hematology CBC w Diff NO MAN DIFF REQ WBC (4.8 - 10.8 /CUMM) 7.2 RBC (4.20 - 5.40 /CUMM) 2.88 L Hgb (12.0 - 16.0 G/DL) 8.1 L Hct (37 - 47 %) 24.6 L MCV (81.0 - 99.0 FL) 85.3 MCH (27.0 - 31.0 PG) 28.1 MCHC (33.0 - 37.0 G/DL) 33.0 RDW (11.5 - 14.5 %) 19.2 H Plt Count (130 - 400 /CUMM) 91 L MPV (7.4 - 10.4 FL) 7.7 Gran % (42.2 - 75.2 %) 73.5 Lymphocytes % (20.5 - 51.1 %) 13.0 L Monocytes % (1.7 - 9.3 %) 12.1 H Eosinophils % (0 - 5 %) 1.1 Basophils % (0.0 - 2.0 %) 0.3 Absolute Granulocytes (1.4 - 6.5 /CUMM) 5.3 Absolute Lymphocytes (1.2 - 3.4 /CUMM) 0.9 L Absolute Monocytes (0.10 - 0.60 /CUMM) 0.9 H Absolute Eosinophils (0.0 - 0.7 /CUMM) 0.1 Absolute Basophils (0.0 - 0.2 /CUMM) 0 Toxicology Vancomycin Trough Pending 11/08 0335 Chemistry Sodium (137 - 145 mmol/L) 144 Potassium (3.5 - 5.1 mmol/L) 3.9 Chloride (98 - 107 mmol/L) 102 Carbon Dioxide (22 - 30 mmol/L) 37 H Anion Gap (5 - 16) 5 BUN (7 - 17 mg/dL) 13 Creatinine (0.5 - 1.0 mg/dL) 0.6 Estimated GFR (>60 ml/min) > 60 BUN/Creatinine Ratio (7 - 25 %) 21.7 Magnesium (1.6 - 2.3 mg/dL) 2.0 Hematology CBC w Diff NO MAN DIFF REQ WBC (4.8 - 10.8 /CUMM) 7.7 RBC (4.20 - 5.40 /CUMM) 3.25 L Hgb (12.0 - 16.0 G/DL) 9.2 L Hct (37 - 47 %) 27.6 L MCV (81.0 - 99.0 FL) 85.0 MCH (27.0 - 31.0 PG) 28.2 MCHC (33.0 - 37.0 G/DL) 33.2 RDW (11.5 - 14.5 %) 19.2 H Plt Count (130 - 400 /CUMM) 80 L MPV (7.4 - 10.4 FL) 7.7 Gran % (42.2 - 75.2 %) 80.0 H Lymphocytes % (20.5 - 51.1 %) 11.0 L Monocytes % (1.7 - 9.3 %) 7.5 Eosinophils % (0 - 5 %) 1.3 Basophils % (0.0 - 2.0 %) 0.2 Absolute Granulocytes (1.4 - 6.5 /CUMM) 6.2 Absolute Lymphocytes (1.2 - 3.4 /CUMM) 0.8 L Absolute Monocytes (0.10 - 0.60 /CUMM) 0.6 Absolute Eosinophils (0.0 - 0.7 /CUMM) 0.1 Absolute Basophils (0.0 - 0.2 /CUMM) 0 Vital Signs & I&O Last 24 Hrs of Vitals and I&O: Vital Signs Date Time Temp Pulse Resp B/P B/P Pulse O2 O2 Flow FiO2 Mean Ox Delivery Rate 11/09 0400 96 Nasal 2.0L Cannula 11/09 0000 91 Nasal 2.0L Cannula 11/09 0000 96.9 84 18 102/00 91 Nasal 2.0L Cannula 11/09 1999 93 Nasal 2.0L Cannula 11/08 1957 97 Nasal 2.0L Cannula 11/08 1600 96 Nasal 2.0L Cannula 11/08 1600 97.2 86 20 112/00 96 Nasal 2.0L Cannula 11/08 1200 97 Nasal 2.0L Cannula Intake & Output 11/09 1600 11/09 0800 11/09 0000 Intake Total 199 313 Output Total 200 175 Balance -1 138 Intake, IV 70 Intake, Tube 119 63 Feeding Intake, Tube 80 180 Irrigant Number 2 Bowel Movements Output, Urine 200 175 Laboratory Tests 11/09 11/09 11/09 0915 0500 0355 Chemistry Sodium (137 - 145 mmol/L) Cancelled 145 Potassium (3.5 - 5.1 mmol/L) Cancelled 3.8 Chloride (98 - 107 mmol/L) Cancelled 103 Carbon Dioxide (22 - 30 mmol/L) Cancelled 38 H Anion Gap (5 - 16) Cancelled 4 L BUN (7 - 17 mg/dL) Cancelled 13 Creatinine (0.5 - 1.0 mg/dL) Cancelled 0.6 Estimated GFR (>60 ml/min) > 60 BUN/Creatinine Ratio Cancelled Glucose (65 - 99 mg/dL) 86 Calcium (8.4 - 10.2 mg/dL) 8.5 Phosphorus (2.5 - 4.5 mg/dL) 3.4 Magnesium (1.6 - 2.3 mg/dL) 1.8 Total Bilirubin (0.2 - 1.3 mg/dL) 0.2 AST (14 - 36 U/L) 17 ALT (9 - 52 U/L) 20 Albumin (3.5 - 5.0 g/dL) 2.1 L Hematology CBC w Diff NO MAN DIFF REQ WBC (4.8 - 10.8 /CUMM) 7.2 RBC (4.20 - 5.40 /CUMM) 2.88 L Hgb (12.0 - 16.0 G/DL) 8.1 L Hct (37 - 47 %) 24.6 L MCV (81.0 - 99.0 FL) 85.3 MCH (27.0 - 31.0 PG) 28.1 MCHC (33.0 - 37.0 G/DL) 33.0 RDW (11.5 - 14.5 %) 19.2 H Plt Count (130 - 400 /CUMM) 91 L MPV (7.4 - 10.4 FL) 7.7 Gran % (42.2 - 75.2 %) 73.5 Lymphocytes % (20.5 - 51.1 %) 13.0 L Monocytes % (1.7 - 9.3 %) 12.1 H Eosinophils % (0 - 5 %) 1.1 Basophils % (0.0 - 2.0 %) 0.3 Absolute Granulocytes (1.4 - 6.5 /CUMM) 5.3 Absolute Lymphocytes (1.2 - 3.4 /CUMM) 0.9 L Absolute Monocytes (0.10 - 0.60 /CUMM) 0.9 H Absolute Eosinophils (0.0 - 0.7 /CUMM) 0.1 Absolute Basophils (0.0 - 0.2 /CUMM) 0 Toxicology Vancomycin Trough Pending 11/08 0335 Chemistry Sodium (137 - 145 mmol/L) 144 Potassium (3.5 - 5.1 mmol/L) 3.9 Chloride (98 - 107 mmol/L) 102 Carbon Dioxide (22 - 30 mmol/L) 37 H Anion Gap (5 - 16) 5 BUN (7 - 17 mg/dL) 13 Creatinine (0.5 - 1.0 mg/dL) 0.6 Estimated GFR (>60 ml/min) > 60 BUN/Creatinine Ratio (7 - 25 %) 21.7 Magnesium (1.6 - 2.3 mg/dL) 2.0 Hematology CBC w Diff NO MAN DIFF REQ WBC (4.8 - 10.8 /CUMM) 7.7 RBC (4.20 - 5.40 /CUMM) 3.25 L Hgb (12.0 - 16.0 G/DL) 9.2 L Hct (37 - 47 %) 27.6 L MCV (81.0 - 99.0 FL) 85.0 MCH (27.0 - 31.0 PG) 28.2 MCHC (33.0 - 37.0 G/DL) 33.2 RDW (11.5 - 14.5 %) 19.2 H Plt Count (130 - 400 /CUMM) 80 L MPV (7.4 - 10.4 FL) 7.7 Gran % (42.2 - 75.2 %) 80.0 H Lymphocytes % (20.5 - 51.1 %) 11.0 L Monocytes % (1.7 - 9.3 %) 7.5 Eosinophils % (0 - 5 %) 1.3 Basophils % (0.0 - 2.0 %) 0.2 Absolute Granulocytes (1.4 - 6.5 /CUMM) 6.2 Absolute Lymphocytes (1.2 - 3.4 /CUMM) 0.8 L Absolute Monocytes (0.10 - 0.60 /CUMM) 0.6 Absolute Eosinophils (0.0 - 0.7 /CUMM) 0.1 Absolute Basophils (0.0 - 0.2 /CUMM) 0 Impression/Plan Impression/Plan Impression/Plan: This is a 72-year-old lady who resides in a intermediate with schizoaffective disorder, previous CVA, wheelchair bound, heart failure with preserved ejection fraction, significant aortic stenosis, goiter, previous radioactive iodine treatment, history of breast cancer with lumpectomy and radiation, chronic hyponatremia, multiple hospitalizations for aspiration pneumonia and hypothermia , came into the hospital with cough shortness of breath and bandemia. The chest CT which was done in the emergency room showed bilateral pulmonary infiltrates with left lower lobe infiltrate which appears to be chronic. She was given intravenous fluids and antibiotics and was transferred to the ICU. In the emergency room she was noted to be hypothermic and hypotensive and subsequently admitted to the ICU, since admission now has slightly improved, General Appearance: lethargic, not very responsive to conversation. AO x 0 on admission Head: atraumatic, normal appearance Ears, Nose, Throat: normal ENT inspection Neck: normal inspection, limited range of motion Respiratory: chest non-tender, crackles, rhonchi Cardiovascular: regular rate/rhythm Gastrointestinal: normal bowel sounds, firm ab w/ palpable mass Extremities: bilateral edematous +3 and an abrasion to the left upper lateral saldana draining yellow fluid in ER, now has pink dressing on it Neurologic/Psych: more awake since yesterday IMPRESSION/ ISSUES Improving sepsis most likely related to bilateral recurrent pneumonia. SPutum prob moraxella with staph aureus awell, now on abx Slowly improving lethargy CT head nil acute but did show old infarcts Recurrent aspiration, now has Ng tube with tube feeding, needs frequent pulm toilet Previous history of heart failure but no clinical evidence suggestive of heart failure at this time Worsening performance status, recurrent hypothermia rule out hypoglycemia and adrenal insufficiency (previously been ruled out) Compensated hypercarbic respiratory failure with hypoxemia due to bilateral pneumonia and polypharmacy Goiter substernal appears to be stable no new change Thrombocytopenia Neg HIT antibody RECOMMENDATION Cont abx Per ID Cont chest PT Cont to check FSG Cont tube feeding Lasix one dose today Po potassium Resume lovenox 40 mg qd Venodyne boots Agg pulm toilet Keep in icu DNR and DNI
--- NOTE | 2017-11-09 11:55 | PN- Infect Dx ---
Subjective Subjective: Afebrile without complaints Objective Last 24 Hrs of Vital Signs/I&O Vital Signs Date Time Temp Pulse Resp B/P B/P Pulse O2 O2 Flow FiO2 Mean Ox Delivery Rate 11/09 0800 90 Nasal 2.0L Cannula 11/09 0800 98.2 78 20 130/0 90 Nasal 2.0L Cannula 11/09 0400 96 Nasal 2.0L Cannula 11/09 0000 91 Nasal 2.0L Cannula 11/09 0000 96.9 84 18 102/00 91 Nasal 2.0L Cannula 11/09 1999 93 Nasal 2.0L Cannula 11/08 1957 97 Nasal 2.0L Cannula 11/09 1599 96 Nasal 2.0L Cannula 11/08 1600 97.2 86 20 112/00 96 Nasal 2.0L Cannula 11/08 1200 97 Nasal 2.0L Cannula Intake & Output 11/09 1600 11/09 0800 11/09 0000 Intake Total 199 313 Output Total 200 175 Balance -1 138 Intake, IV 70 Intake, Tube 119 63 Feeding Intake, Tube 80 180 Irrigant Number 2 Bowel Movements Output, Urine 200 175 Physical Exam Other Physical Findings: She remains lethargic but somewhat more responsive Lungs scattered rhonchi bilaterally Heart regular rhythm with no murmur Abdomen is distended, nontender with positive bowel sounds Extremities decreased edema both upper extremities Cheek catheter remains in place Results Last 24 Hours of Lab Results: Laboratory Tests 11/09 11/09 11/09 0915 0500 0355 Chemistry Sodium (137 - 145 mmol/L) Cancelled 145 Potassium (3.5 - 5.1 mmol/L) Cancelled 3.8 Chloride (98 - 107 mmol/L) Cancelled 103 Carbon Dioxide (22 - 30 mmol/L) Cancelled 38 H Anion Gap (5 - 16) Cancelled 4 L BUN (7 - 17 mg/dL) Cancelled 13 Creatinine (0.5 - 1.0 mg/dL) Cancelled 0.6 Estimated GFR (>60 ml/min) > 60 BUN/Creatinine Ratio Cancelled Glucose (65 - 99 mg/dL) 86 Calcium (8.4 - 10.2 mg/dL) 8.5 Phosphorus (2.5 - 4.5 mg/dL) 3.4 Magnesium (1.6 - 2.3 mg/dL) 1.8 Total Bilirubin (0.2 - 1.3 mg/dL) 0.2 AST (14 - 36 U/L) 17 ALT (9 - 52 U/L) 20 Albumin (3.5 - 5.0 g/dL) 2.1 L Hematology CBC w Diff NO MAN DIFF REQ WBC (4.8 - 10.8 /CUMM) 7.2 RBC (4.20 - 5.40 /CUMM) 2.88 L Hgb (12.0 - 16.0 G/DL) 8.1 L Hct (37 - 47 %) 24.6 L MCV (81.0 - 99.0 FL) 85.3 MCH (27.0 - 31.0 PG) 28.1 MCHC (33.0 - 37.0 G/DL) 33.0 RDW (11.5 - 14.5 %) 19.2 H Plt Count (130 - 400 /CUMM) 91 L MPV (7.4 - 10.4 FL) 7.7 Gran % (42.2 - 75.2 %) 73.5 Lymphocytes % (20.5 - 51.1 %) 13.0 L Monocytes % (1.7 - 9.3 %) 12.1 H Eosinophils % (0 - 5 %) 1.1 Basophils % (0.0 - 2.0 %) 0.3 Absolute Granulocytes (1.4 - 6.5 /CUMM) 5.3 Absolute Lymphocytes (1.2 - 3.4 /CUMM) 0.9 L Absolute Monocytes (0.10 - 0.60 /CUMM) 0.9 H Absolute Eosinophils (0.0 - 0.7 /CUMM) 0.1 Absolute Basophils (0.0 - 0.2 /CUMM) 0 Toxicology Vancomycin Trough (10.0 - 20.0 ug/mL) 9.4 L Last 24 Hours of Neo Results: No recent cultures Recent Imaging Studies: CT of the head November 08 no acute process Assessment/Plan ID Impression: Condition remains stable, with continued improvement in her mental status, though she remains lethargic, and with her temperatures and white blood cell count remaining normal on Vancomycin and Ceftriaxone, Day 6 of treatment for presumed aspiration pneumonia, with multilobar densities on her CT scan and with her sputum culture positive for Moraxella and MRSA. Her Vancomycin level is noted and her dose can be increased. Her thrombocytopenia, possibly secondary to medications or sepsis, is improving. Suggestion: 1. Increase Vancomycin to 1250 mg IV every 24 hours 2. Continue Ceftriaxone
--- NOTE | 2017-11-09 14:23 | RADIOLOGY REPORT ---
EXAMINATION: XR PORTABLE CHEST CLINICAL INFORMATION: Aspiration pneumonia. COMPARISON: None TECHNIQUE: Portable frontal view of the chest was obtained. FINDINGS: There is mild cardiomegaly with normal pulmonary vascularity. There is a left subclavian catheter its tip in distal SVC. Enteric tube is within the stomach. Both lungs are hypoexpanded with patchy atelectasis scarring both lung bases. IMPRESSION: Cardiomegaly without congestion. Bibasilar atelectasis or scarring A left subclavian line and enteric tube are in satisfactory position.
[2017-11-09 16:00] VITALS: BP 118/00
[2017-11-10] VITALS: BP 124/00
[2017-11-10 04:40] LABS: ABSOLUTE BASOPHIL COUNT 0 /CUMM (0.0-0.2); ABSOLUTE EOSINOPHIL COUNT 0.1 /CUMM (0.0-0.7); ABSOLUTE GRANULOCYTE CT 5.3 /CUMM (1.4-6.5); ABSOLUTE LYMPH COUNT 1.1 /CUMM (1.2-3.4); ABSOLUTE MONOCYTE COUNT 0.9 /CUMM (0.10-0.60); BASOPHIL % 0.6 % (0.0-2.0); EOSINOPHIL % 0.7 % (0-5); GRANULOCYTE % 71.7 % (42.2-75.2); HEMATOCRIT 24.3 % (37-47); MEAN CORPUSCULAR HGB 27.8 PG (27.0-31.0); MEAN CORPUSCULAR HGB CONC 32.8 G/DL (33.0-37.0); MEAN CORPUSCULAR VOLUME 84.7 FL (81.0-99.0); MEAN PLATELET VOLUME 7.3 FL (7.4-10.4); RBC DISTRIBUTION WIDTH 18.9 % (11.5-14.5); RED BLOOD CELL CT 2.87 /CUMM (4.20-5.40); WHITE BLOOD CELL COUNT 7.3 /CUMM (4.8-10.8)
[2017-11-10 05:32] LABS: PLATELET COUNT 172 /CUMM (130-400)
--- NOTE | 2017-11-10 07:23 | PN- Resident CRCU ---
Subjective HPI/CRCU Issues: No overnight event. Patient was resting when I examined her, and will wake up with mumbled response, however would not open her eyes, appeared slightly more lethargic than yesteryda. No acute distress and without specific complaints. Objective Vital Signs & I&O Last 8 Hrs of Vitals and I&O: Intake & Output 11/10 0800 Intake Total 463 Output Total 225 Balance 238 Intake, Tube 383 Feeding Intake, Tube 80 Irrigant Number 1 Bowel Movements Output, Urine 225 Exam General Appearance: no apparent distress, alert, awake, lethargic Head: atraumatic, normal appearance, active bleeding Respiratory: no respiratory distress, decreased breath sounds, mild rhonchi/ crackles, appeared to be similar to previous days Cardiovascular: regular rate/rhythm Gastrointestinal: normal bowel sounds, non-tender, hernia, mass Extremities: normal inspection, 3+ BLE edematous same at baseline. Current Medications: Current Medications Sig/Courtney Start time Last Medication Dose Route Stop Time Status Admin Acetaminophen 1,000 MG Q6P PRN 11/03 1000 AC IV Albuterol Sulfate 3 ML BID 11/03 2100 AC 11/09 INH 1904 Aspirin 81 MG DAILY 11/04 0900 AC 11/09 PO 0909 Ceftriaxone Sodium 1,000 MG DAILY 11/04 2100 AC 11/09 IV 0909 Enoxaparin Sodium 40 MG DAILY 11/09 1100 AC 11/09 SC 1147 Furosemide 20 MG ONCE ONE 11/09 0845 DC 11/09 IV 11/09 0846 0909 Magnesium Oxide 400 MG ONE ONE 11/10 0645 DC 11/10 PO 11/10 0646 0651 Nystatin 1 RON TID PRN 11/09 0415 AC 11/09 TOP 0909 Polyethylene Glycol 17 GM DAILY PRN 11/03 1030 AC 11/06 PO 0944 Potassium Chloride 20 MEQ ONCE ONE 11/09 1100 CAN PO 11/09 1101 Potassium Chloride 40 MEQ ONCE ONE 11/09 1100 DC 11/09 PO 11/09 1101 1147 Rosuvastatin Calcium 5 MG AT BEDTIME 11/04 2100 AC 11/09 PO 2126 Vancomycin HCl 1,250 MG 1000 11/10 1000 AC Sodium Chloride 250 ML IV Vancomycin HCl 1,000 MG 1000 11/05 1045 DC 11/09 Sodium Chloride 250 ML IV 0910 Impression/Plan Impression/Problem List Impression: On admission to ICU, Vitals: T 96.1 trending up, pulse 66, RR 20, blood pressure 80s/50s, saturating on nasal cannula 6.0% -CBC: WBC 5.5, H/H9 0.5/28.9 stable, PLT 133, bandemia 21 -BMP: Unremarkable without lactic acidosis, TSH slightly decreased 0.267, free T4 normal -UA/Microbiology: Pyuria/LE and nitrites positive -Misc: Valproic acid 56.9 within therapeutic range -ABG 7.4 1/49/100/41 on 6 L nasal cannula -Chest CT showed multifocal airspace disease with left lower lobe consolidation and volume loss, possibly pneumonia. 4.8 cm partially calcified right thyroid nodule. Positive for umbilical hernia as well. 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 Remained stable afebrile - Vanco trough 9.4 on 11/09, increased on vanco to 1.25 per ID. candidate for mucomyst per RT. Bedside oral suctioning PRN. - PICC line placement done, femoral line removed 11/05 Infection: As above Cardio: History of HFPEF, with stage I diastolic dysfunction, patient was at baseline edematous, and based on the intake/output the last 24 hours, patient may be retaining fluid, however no new findings on physical examination. -Received IV Lasix 20mg x 1 and resolved O2 sat back to >92% on 11/09, however the desatting could also be due to sputum clogs? - CXR showed stable cardiomegaly however no signs of pulm congestion. Hem: Patient's hemoglobin 9.2->8.1 ->8.0 on latest lab, without any active signs of bleeding - s/p 1U PRBC 11/05 - PLT 80 -> 91 ->172 stable, HIT antibodies negative, restarted Lovenox 40mg SC Qd for VTE prophylaxis. - Nose bleeding from NGT over the weekend (no trauma/bleeding during insertion). Prob 2/2 low PLT. Currently dried without any active bleeding. Will continue to monitor. Metabolism: Patient appeared to be mildly hypothyroidism with 0.267, however normal T4 1.64. Per patient's daughter, patient had been on the lower end of body temperature in the past. Alimentary: Appreciated nutritional consult. Neuro: especially when daughter was at bedside. Will continue monitor. -Head CT 11/08 showed no acute process, mostly Chronic appearing lacunar infarct in left basal ganglia, right centrum semiovale, and left brachium pontis. Moderate diffuse brain parenchymal volume loss. total, spreading to every 8 hour IV infusion. Patient was taking Depakote at home for mental etiology, not seizure precaution. -Due to patient's AMS was not significantly improving, we have DCed all AMS- related meds including depakote and Singulair. - neuro consult PRN DVT prophylaxis: Lovenox SC + ALPS Tube Feeding Jevity 1.2. IV Access: PICC + Peripheral IV DNR/DNI Problem List: 1. MRSA pneumonia 2. Weakness Pain Ratin Tomorrow's Labs & Rationales: ICU/CBC Plan DVT/Prophylaxis: mechanical
[2017-11-10 08:00] VITALS: BP 90/00
--- NOTE | 2017-11-10 11:02 | PN- Infect Dx ---
Subjective Subjective: Afebrile. She is unable to provide any meaningful history. Objective Last 24 Hrs of Vital Signs/I&O Vital Signs Date Time Temp Pulse Resp B/P B/P Pulse O2 O2 Flow FiO2 Mean Ox Delivery Rate 11/10 0859 95 Nasal 2.0L Cannula 11/10 0800 95 Nasal 2.0L Cannula 11/10 0800 97.9 99 22 90/00 95 Nasal 2.0L Cannula 11/10 0400 96 Nasal 2.0L Cannula 11/10 0000 100 Nasal 2.0L Cannula 11/10 0000 97.4 94 25 124/00 100 Nasal 2.0L Cannula 11/09 2000 96 Nasal 2.0L Cannula 11/09 1912 97 Nasal 3.0L Cannula 11/09 1600 97.1 103 22 118/00 99 Nasal 3.0L Cannula 11/09 1600 99 Nasal 3.0L Cannula 11/09 1200 97 Nasal 3.0L Cannula Intake & Output 11/10 1600 11/10 0800 06 0000 Intake Total 463 333 Output Total 225 400 Balance 238 -67 Intake, Tube 383 253 Feeding Intake, Tube 80 80 Irrigant Number 1 1 Bowel Movements Output, Urine 225 400 Physical Exam Other Physical Findings: She remains lethargic, minimally responsive, but in no acute distress HEENT NG tube in place, with feedings ongoing Lungs scattered rhonchi bilaterally Heart regular rhythm with no murmur Abdomen mildly distended, nontender with positive bowel sounds Extremities 1+ edema all extremities; PICC in left upper extremity with no inflammation at the site Cheek catheter remains in place Results Last 24 Hours of Lab Results: Laboratory Tests 11/10 0415 Chemistry Sodium (137 - 145 mmol/L) 143 Potassium (3.5 - 5.1 mmol/L) 4.2 Chloride (98 - 107 mmol/L) 100 Carbon Dioxide (22 - 30 mmol/L) 40 H Anion Gap (5 - 16) 3 L BUN (7 - 17 mg/dL) 16 Creatinine (0.5 - 1.0 mg/dL) 0.6 Estimated GFR (>60 ml/min) > 60 Glucose (65 - 99 mg/dL) 123 H Calcium (8.4 - 10.2 mg/dL) 8.7 Phosphorus (2.5 - 4.5 mg/dL) 3.6 Magnesium (1.6 - 2.3 mg/dL) 1.7 Total Bilirubin (0.2 - 1.3 mg/dL) 0.2 AST (14 - 36 U/L) 26 ALT (9 - 52 U/L) 25 Albumin (3.5 - 5.0 g/dL) 2.2 L Hematology CBC w Diff NO MAN DIFF REQ WBC (4.8 - 10.8 /CUMM) 7.3 RBC (4.20 - 5.40 /CUMM) 2.87 L Hgb (12.0 - 16.0 G/DL) 8.0 L Hct (37 - 47 %) 24.3 L MCV (81.0 - 99.0 FL) 84.7 MCH (27.0 - 31.0 PG) 27.8 MCHC (33.0 - 37.0 G/DL) 32.8 L RDW (11.5 - 14.5 %) 18.9 H Plt Count (130 - 400 /CUMM) 172 MPV (7.4 - 10.4 FL) 7.3 L Gran % (42.2 - 75.2 %) 71.7 Lymphocytes % (20.5 - 51.1 %) 14.9 L Monocytes % (1.7 - 9.3 %) 12.1 H Eosinophils % (0 - 5 %) 0.7 Basophils % (0.0 - 2.0 %) 0.6 Absolute Granulocytes (1.4 - 6.5 /CUMM) 5.3 Absolute Lymphocytes (1.2 - 3.4 /CUMM) 1.1 L Absolute Monocytes (0.10 - 0.60 /CUMM) 0.9 H Absolute Eosinophils (0.0 - 0.7 /CUMM) 0.1 Absolute Basophils (0.0 - 0.2 /CUMM) 0 Last 24 Hours of Neo Results: No recent cultures Recent Imaging Studies: Chest x-ray November 09 bibasilar atelectasis Assessment/Plan ID Impression: Stable, with temperatures and white blood cell count remaining normal, on Vancomycin and Ceftriaxone, Day 7 of treatment for presumed aspiration pneumonia , with multilobar densities on her CT scan and with her sputum culture positive for Moraxella and MRSA. She remains lethargic with little change in her status since admission. Her thrombocytopenia has resolved. Suggestion: 1. Remove Cheek catheter 2. Discontinue vancomycin and Ceftriaxone and follow off antibiotics
--- NOTE | 2017-11-10 13:42 | PN- CRCU ---
See Addendum Subjective HPI/Critical Care Issues: No overnight event. Patient was resting when I examined her, and will wake up with mumbled response, however would not open her eyes, appeared slightly more lethargic than yesteryda. No acute distress and without specific complaints. Objective Current Medications: Current Medications Sig/Courtney Start time Last Medication Dose Route Stop Time Status Admin Acetaminophen 1,000 MG Q6P PRN 11/03 1000 AC IV Albuterol Sulfate 3 ML BID 11/03 2100 AC 11/10 INH 0822 Aspirin 81 MG DAILY 11/04 0900 AC 11/10 PO 0801 Ceftriaxone Sodium 1,000 MG DAILY 11/04 2100 DC 11/10 IV 0801 Enoxaparin Sodium 40 MG DAILY 11/09 1100 AC 11/10 SC 0801 Magnesium Oxide 400 MG ONE ONE 11/10 0645 DC 11/10 PO 11/10 0646 0651 Nystatin 1 RON TID PRN 11/09 0415 AC 11/09 TOP 0909 Polyethylene Glycol 17 GM DAILY PRN 11/03 1030 AC 11/06 PO 0944 Rosuvastatin Calcium 5 MG AT BEDTIME 11/04 2100 AC 11/09 PO 2126 Vancomycin HCl 1,250 MG 1000 11/10 1000 DC 11/10 Sodium Chloride 250 ML IV 0944 Vital Signs & I&O Last 24 Hrs of Vitals and I&O: Vital Signs Date Time Temp Pulse Resp B/P B/P Pulse O2 O2 Flow FiO2 Mean Ox Delivery Rate 11/10 0859 95 Nasal 2.0L Cannula 11/10 0800 95 Nasal 2.0L Cannula 11/10 0800 97.9 99 22 90/00 95 Nasal 2.0L Cannula 11/10 0400 96 Nasal 2.0L Cannula 11/10 0000 100 Nasal 2.0L Cannula 11/10 0000 97.4 94 25 124/00 100 Nasal 2.0L Cannula 11/10 1999 96 Nasal 2.0L Cannula 11/09 1912 97 Nasal 3.0L Cannula 11/09 1600 97.1 103 22 118/00 99 Nasal 3.0L Cannula 11/09 1600 99 Nasal 3.0L Cannula Intake & Output 11/10 1600 11/10 0800 06 0000 Intake Total 463 333 Output Total 225 400 Balance 238 -67 Intake, Tube 383 253 Feeding Intake, Tube 80 80 Irrigant Number 1 1 Bowel Movements Output, Urine 225 400 Impression/Plan Impression/Plan Impression/Plan: This is a 72-year-old lady who resides in a care home with schizoaffective disorder, previous CVA, wheelchair bound, heart failure with preserved ejection fraction, significant aortic stenosis, goiter, previous radioactive iodine treatment, history of breast cancer with lumpectomy and radiation, chronic hyponatremia, multiple hospitalizations for aspiration pneumonia and hypothermia , came into the hospital with cough shortness of breath and bandemia. The chest CT which was done in the emergency room showed bilateral pulmonary infiltrates with left lower lobe infiltrate which appears to be chronic. She was given intravenous fluids and antibiotics and was transferred to the ICU. In the emergency room she was noted to be hypothermic and hypotensive and subsequently admitted to the ICU, since admission now has slightly improved, General Appearance: lethargic, not very responsive to conversation. AO x 0 on admission Head: atraumatic, normal appearance Ears, Nose, Throat: normal ENT inspection Neck: normal inspection, limited range of motion Respiratory: chest non-tender, crackles, rhonchi Cardiovascular: regular rate/rhythm Gastrointestinal: normal bowel sounds, firm ab w/ palpable mass Extremities: bilateral edematous +3 and an abrasion to the left upper lateral saldana draining yellow fluid in ER, now has pink dressing on it Neurologic/Psych:lethargic IMPRESSION/ ISSUES Improving sepsis most likely related to bilateral recurrent pneumonia. SPutum prob moraxella with staph aureus awell, now on abx Slowly improving lethargy CT head nil acute but did show old infarcts Recurrent aspiration, now has Ng tube with tube feeding, needs frequent pulm toilet Previous history of heart failure but no clinical evidence suggestive of heart failure at this time Worsening performance status, recurrent hypothermia rule out hypoglycemia and adrenal insufficiency (previously been ruled out) Compensated hypercarbic respiratory failure with hypoxemia due to bilateral pneumonia and polypharmacy Goiter substernal appears to be stable no new change Thrombocytopenia Neg HIT antibody, now resolved RECOMMENDATION Cont abx Per ID, however finish 7 days of vanco, can dc ceftriaxone Family meeting in am Ask neuro to see Cont chest PT Cont to check FSG Cont tube feeding GIve one dose of potassium 40 meq down ng Po potassium Resume lovenox 40 mg qd Venodyne boots Agg pulm toilet Keep in icu DNR and DNI
[2017-11-10 16:00] VITALS: BP 96/00
--- NOTE | 2017-11-10 16:53 | Cons- Neurology ---
General Information and HPI Consulting Request Date of Consult: 11/10/17 Requested By: Tawanna GARCIA,Jf Ni Source of Information: family History of Present Illness: 70-year-old female admitted to hospital November 03 She had been complaining of fatigue for a few days prior to her admission She is a resident of [facility] She became acutely short of breath with an O2 sat of 88% prompting admission to hospital She was extremely somnolent when she arrived Over the next few days there has been mild improvement in her level of consciousness When not stimulated she would often fall back to sleep No convulsive activity noted Patient has severe rigidity which daughter says is not necessarily no but may be related to her antipsychotic medications Allergies/Medications Allergies: Coded Allergies: Sulfa (Sulfonamide Antibiotics) (Intermediate, FACIAL EDEMA 10/16/16) azithromycin (Intermediate, THROAT CLOSURE 10/16/16) egg (Intermediate, SWOLLEN RED EYES 10/16/16) lactose (Mild, unknown 06/07/17) atorvastatin (UNKNOWN 10/16/16) cephalexin (From KEFLEX) (UNKNOWN 05/31/17) ciprofloxacin (ANXIETY 10/16/16) Home Med List: Acetaminophen (Pain Relief) 650 MG TABLET.ER 1 TAB PO DAILY PAIN (Reported) Aripiprazole (Abilify) 2 MG TABLET 7 MG PO DAILY MENTAL HEALTH (Reported) Aspirin (Aspirin*) 81 MG TAB.CHEW 1 TAB PO DAILY HEART HEALTH (Reported) Biotin 5 MG CAPSULE 1 CAP PO QPM UNKNOWN (Reported) Divalproex Sodium 250 MG TABLET.DR 1 TAB PO QAM MENTAL HEALTH (Reported) Divalproex Sodium 500 MG TABLET.DR 1 TAB PO QPM MENTAL HEALTH (Reported) Ferrous Sulfate 325 MG (65 MG IRON) TABLET 1 TAB PO QPM IRON, VITAMIN ( Reported) Furosemide (Lasix) 40 MG TABLET 0.5 TAB PO QAM CHF (Reported) Montelukast Sodium 10 MG TABLET 10 MG PO DAILY ALLERGIES (Reported) Polyethylene Glycol 3350 (Miralax) 17 GRAM/DOSE POWDER 1 DOSE PO DAILY PRN CONSTIPATION Potassium Chloride 20 MEQ TAB.ER.PRT 1 TAB PO DAILY SUPPLEMENT (Reported) Rosuvastatin Calcium (Crestor) 5 MG TABLET 5 MG PO QHS CHOLESTROL (Reported) Current Medications: Current Medications Sig/Courtney Start time Last Medication Dose Route Stop Time Status Admin Acetaminophen 1,000 MG Q6P PRN 06/06 1000 AC IV Albuterol Sulfate 3 ML BID 11/03 2100 AC 11/10 INH 0822 Aspirin 81 MG DAILY 11/04 0900 AC 11/10 PO 0801 Ceftriaxone Sodium 1,000 MG DAILY 11/04 2100 DC 11/10 IV 0801 Enoxaparin Sodium 40 MG DAILY 11/09 1100 AC 11/10 SC 0801 Magnesium Oxide 400 MG ONE ONE 11/10 0645 DC 11/10 PO 11/10 0646 0651 Nystatin 1 RON TID PRN 11/09 0415 AC 11/09 TOP 0909 Polyethylene Glycol 17 GM DAILY PRN 11/03 1030 AC 11/06 PO 0944 Potassium Chloride 40 MEQ ONCE ONE 11/10 1515 DC 11/10 PO 11/10 1516 1529 Rosuvastatin Calcium 5 MG AT BEDTIME 11/04 2100 AC 11/09 PO 2126 Vancomycin HCl 1,250 MG 1000 11/11 1000 AC Sodium Chloride 250 ML IV 11/11 1129 Vancomycin HCl 1,250 MG 1000 11/10 1000 DC 11/10 Sodium Chloride 250 ML IV 0944 Review of Systems Review of Systems: Per daughter occasional headaches No clear visual loss No vertigo No chest pains Patient does have intermittent shortness of breath No vomiting Patient is incontinent of urine Walks very little and usually reliant on wheelchair Occasionally falls and has history in the past of head trauma Mild swelling lower extremities Other systems not available Past History Travel History Traveled to [place] past 21 day No Medical History Neurological: CVA, dizziness, vertigo EENT: allergies, CHRONIC SINUS PROBLEMS Cardiovascular: stage I diastolic congestive heart failure Respiratory: NONE Gastrointestinal: lactose intolerance Hepatic: NONE Renal: urinary incontinence, CHRONIC UTI Musculoskeletal: falls, degenerative knee arthritis "NO ROTATOR CUFF" R ARM Psychiatric: bipolar disease, schizophrenia Endocrine: iodine radiotherapy for GOITER Blood Disorders: NONE Cancer(s): BREAST CA (breast cancer, status post rig) [employer] C[employer]ER SERVICES/Reproductive: NONE Surgical History Surgical History: cholecystectomy, , lumpectomy (right) Family History Relations & Conditions If Any: FATHER Coronary artery disease Psychosocial History Where Do You Live? Extended Care Facility Who Do You Live With? self Primary Language: Greenlandic Smoking Status: Unknown If Ever Smoked Living Will? no Functional Ability ADLs Needs Assist: dressing, eating, toileting, bathing. Ambulation: walker IADLs Needs Assist: shopping, housework, finances, food prep, telephone, transportation, medication admin. Exam & Diagnostic Data Vital Signs and I&O Vital Signs Date Time Temp Pulse Resp B/P B/P Pulse O2 O2 Flow FiO2 Mean Ox Delivery Rate 11/10 1600 97.0 79 17 96/00 97 Nasal 2.0L Cannula 11/10 1600 97 Nasal 2.0L Cannula 11/10 1200 97 Nasal 2.0L Cannula 11/10 0859 95 Nasal 2.0L Cannula 11/10 0800 95 Nasal 2.0L Cannula 11/10 0800 97.9 99 22 90/00 95 Nasal 2.0L Cannula 11/10 0400 96 Nasal 2.0L Cannula 11/10 0000 100 Nasal 2.0L Cannula 11/10 0000 97.4 94 25 124/00 100 Nasal 2.0L Cannula 11/09 2000 96 Nasal 2.0L Cannula 11/09 1912 97 Nasal 3.0L Cannula Intake & Output 11/10 1600 11/10 0800 06 0000 Intake Total 1290 463 333 Output Total 200 225 400 Balance 1090 238 -67 Intake, IV 700 Intake, Tube 400 383 253 Feeding Intake, Tube 190 80 80 Irrigant Number 1 1 1 Bowel Movements Output, Urine 200 225 400 Physical Exam: Drowsy but arousable Following commands Mildly dysarthric Difficult to handle his secretions Distal pulses difficult to palpate Extra ocular movements full Pupils reactive Fundi could not be evaluated No facial weakness Palate and uvula midline Shoulder shrug intact Hearing grossly intact Severe rigidity upper and lower extremities No sensory loss to light touch Deep tendon reflexes hypoactive throughout Coordinative functions upper extremities grossly intact Gait not assessable in ICU Last 48 Hours of Lab Results: Laboratory Tests 11/10 11/09 11/09 0415 0915 0500 Chemistry Sodium (137 - 145 mmol/L) 143 Cancelled Potassium (3.5 - 5.1 mmol/L) 4.2 Cancelled Chloride (98 - 107 mmol/L) 100 Cancelled Carbon Dioxide (22 - 30 mmol/L) 40 H Cancelled Anion Gap (5 - 16) 3 L Cancelled BUN (7 - 17 mg/dL) 16 Cancelled Creatinine (0.5 - 1.0 mg/dL) 0.6 Cancelled Estimated GFR (>60 ml/min) > 60 BUN/Creatinine Ratio Cancelled Glucose (65 - 99 mg/dL) 123 H Calcium (8.4 - 10.2 mg/dL) 8.7 Phosphorus (2.5 - 4.5 mg/dL) 3.6 Magnesium (1.6 - 2.3 mg/dL) 1.7 Total Bilirubin (0.2 - 1.3 mg/dL) 0.2 AST (14 - 36 U/L) 26 ALT (9 - 52 U/L) 25 Albumin (3.5 - 5.0 g/dL) 2.2 L Hematology CBC w Diff NO MAN DIFF REQ WBC (4.8 - 10.8 /CUMM) 7.3 RBC (4.20 - 5.40 /CUMM) 2.87 L Hgb (12.0 - 16.0 G/DL) 8.0 L Hct (37 - 47 %) 24.3 L MCV (81.0 - 99.0 FL) 84.7 MCH (27.0 - 31.0 PG) 27.8 MCHC (33.0 - 37.0 G/DL) 32.8 L RDW (11.5 - 14.5 %) 18.9 H Plt Count (130 - 400 /CUMM) 172 MPV (7.4 - 10.4 FL) 7.3 L Gran % (42.2 - 75.2 %) 71.7 Lymphocytes % (20.5 - 51.1 %) 14.9 L Monocytes % (1.7 - 9.3 %) 12.1 H Eosinophils % (0 - 5 %) 0.7 Basophils % (0.0 - 2.0 %) 0.6 Absolute Granulocytes (1.4 - 6.5 /CUMM) 5.3 Absolute Lymphocytes (1.2 - 3.4 /CUMM) 1.1 L Absolute Monocytes (0.10 - 0.60 /CUMM) 0.9 H Absolute Eosinophils (0.0 - 0.7 /CUMM) 0.1 Absolute Basophils (0.0 - 0.2 /CUMM) 0 Toxicology Vancomycin Trough (10.0 - 20.0 ug/mL) 9.4 L 11/09 0355 Chemistry Sodium (137 - 145 mmol/L) 145 Potassium (3.5 - 5.1 mmol/L) 3.8 Chloride (98 - 107 mmol/L) 103 Carbon Dioxide (22 - 30 mmol/L) 38 H Anion Gap (5 - 16) 4 L BUN (7 - 17 mg/dL) 13 Creatinine (0.5 - 1.0 mg/dL) 0.6 Estimated GFR (>60 ml/min) > 60 Glucose (65 - 99 mg/dL) 86 Calcium (8.4 - 10.2 mg/dL) 8.5 Phosphorus (2.5 - 4.5 mg/dL) 3.4 Magnesium (1.6 - 2.3 mg/dL) 1.8 Total Bilirubin (0.2 - 1.3 mg/dL) 0.2 AST (14 - 36 U/L) 17 ALT (9 - 52 U/L) 20 Albumin (3.5 - 5.0 g/dL) 2.1 L Hematology CBC w Diff NO MAN DIFF REQ WBC (4.8 - 10.8 /CUMM) 7.2 RBC (4.20 - 5.40 /CUMM) 2.88 L Hgb (12.0 - 16.0 G/DL) 8.1 L Hct (37 - 47 %) 24.6 L MCV (81.0 - 99.0 FL) 85.3 MCH (27.0 - 31.0 PG) 28.1 MCHC (33.0 - 37.0 G/DL) 33.0 RDW (11.5 - 14.5 %) 19.2 H Plt Count (130 - 400 /CUMM) 91 L MPV (7.4 - 10.4 FL) 7.7 Gran % (42.2 - 75.2 %) 73.5 Lymphocytes % (20.5 - 51.1 %) 13.0 L Monocytes % (1.7 - 9.3 %) 12.1 H Eosinophils % (0 - 5 %) 1.1 Basophils % (0.0 - 2.0 %) 0.3 Absolute Granulocytes (1.4 - 6.5 /CUMM) 5.3 Absolute Lymphocytes (1.2 - 3.4 /CUMM) 0.9 L Absolute Monocytes (0.10 - 0.60 /CUMM) 0.9 H Absolute Eosinophils (0.0 - 0.7 /CUMM) 0.1 Absolute Basophils (0.0 - 0.2 /CUMM) 0 Imaging/Other Studies: CT head IMPRESSION: - No acute intracranial abnormality. - Chronic appearing lacunar infarct in left basal ganglia, right centrum semiovale, and left brachium pontis. - Moderate diffuse brain parenchymal volume loss. Assessment/Plan Assessment: Mental status change likely secondary to underlying pulmonary infection Daughter states that similar problems have occurred in the past when she is ill although not to this extent Severe rigidity possibly medication related Recommendations: If not previously obtained draw TSH, cortisol levels, ammonia level, LANDON antibodies Physical therapy Apparently change in antipsychotic medications in the past for rigidity was not tolerated due to increasing psychiatric problems Consult Acknowledgment - Thank you for your consult request.
[2017-11-10 20:30] VITALS: BP 110/60
[2017-11-11] VITALS: BP 104/0
[2017-11-11 05:47] LABS: ABSOLUTE BASOPHIL COUNT 0 /CUMM (0.0-0.2); ABSOLUTE EOSINOPHIL COUNT 0.1 /CUMM (0.0-0.7); ABSOLUTE GRANULOCYTE CT 4.2 /CUMM (1.4-6.5); ABSOLUTE LYMPH COUNT 1.1 /CUMM (1.2-3.4); ABSOLUTE MONOCYTE COUNT 0.8 /CUMM (0.10-0.60); BASOPHIL % 0.7 % (0.0-2.0); EOSINOPHIL % 1.8 % (0-5); GRANULOCYTE % 67.3 % (42.2-75.2); HEMATOCRIT 22.5 % (37-47); MEAN CORPUSCULAR HGB CONC 32.9 G/DL (33.0-37.0); MEAN CORPUSCULAR VOLUME 85.1 FL (81.0-99.0); PLATELET COUNT 225 /CUMM (130-400); RBC DISTRIBUTION WIDTH 18.8 % (11.5-14.5); RED BLOOD CELL CT 2.65 /CUMM (4.20-5.40); WHITE BLOOD CELL COUNT 6.3 /CUMM (4.8-10.8)
--- NOTE | 2017-11-11 07:15 | PN- Resident CRCU ---
See Addendum Subjective HPI/CRCU Issues: No overnight event. Patient was seen and examined at bedside. No specific complaint, with improved mental status compared to previous days (wake up immediately to greeting, clear speech, more eye contacts), still lethargic. No other specific complaint. Objective Vital Signs & I&O Last 8 Hrs of Vitals and I&O: Intake & Output 11/11 1600 11/11 0800 11/11 0000 Intake Total 576 464 Output Total 407 480 Balance 169 -16 Intake, Tube 416 324 Feeding Intake, Tube 160 140 Irrigant Number 1 2 Bowel Movements Output, Urine 407 480 Exam General Appearance: awake, lethargic Head: atraumatic, normal appearance Cardiovascular: regular rate/rhythm Gastrointestinal: soft, non-tender, hernia Extremities: +3 BLE edematous, +2-3 BUE edematous, unchanged from admission. Current Medications: Current Medications Sig/Courtney Start time Last Medication Dose Route Stop Time Status Admin Acetaminophen 1,000 MG Q6P PRN 11/03 1000 AC IV Albuterol Sulfate 3 ML BID 11/03 2100 AC 11/10 INH 1844 Aspirin 81 MG DAILY 11/04 0900 AC 11/10 PO 0801 Ceftriaxone Sodium 1,000 MG DAILY 11/04 2100 DC 11/10 IV 0801 Enoxaparin Sodium 40 MG DAILY 11/09 1100 AC 11/10 SC 0801 Magnesium Sulfate 1 GM ONCE ONE 11/11 0645 AC 11/11 Dextrose/Water 100 ML IV 11/11 1044 0646 Nystatin 1 RON TID PRN 11/09 0415 AC 11/09 TOP 0909 Polyethylene Glycol 17 GM DAILY PRN 11/03 1030 AC 11/06 PO 0944 Potassium Chloride 40 MEQ ONCE ONE 11/10 1515 DC 11/10 PO 11/10 1516 1529 Rosuvastatin Calcium 5 MG AT BEDTIME 11/04 2100 AC 11/10 PO 2156 Vancomycin HCl 1,250 MG 1000 11/11 1000 AC Sodium Chloride 250 ML IV 11/11 1129 Vancomycin HCl 1,250 MG 1000 11/10 1000 DC 11/10 Sodium Chloride 250 ML IV 0944 Impression/Plan Impression/Problem List Impression: On admission to ICU, Vitals: T 96.1 trending up, pulse 66, RR 20, blood pressure 80s/50s, saturating on nasal cannula 6.0% -CBC: WBC 5.5, H/H9 0.5/28.9 stable, PLT 133, bandemia 21 -BMP: Unremarkable without lactic acidosis, TSH slightly decreased 0.267, free T4 normal -UA/Microbiology: Pyuria/LE and nitrites positive -Misc: Valproic acid 56.9 within therapeutic range -ABG 7.4 1/49/100/41 on 6 L nasal cannula -Chest CT showed multifocal airspace disease with left lower lobe consolidation and volume loss, possibly pneumonia. 4.8 cm partially calcified right thyroid nodule. Positive for umbilical hernia as well. -Interventions in ER: Clindamycin/vancomycin/ciprofloxacin 1, IV fluids, dextrose push Problem list/Assessment/Hospital Course: #HCAP 2/2 MRSA/Morexella PNA #Sepsis (hypothermia, leukopenia/bandemia, source of infection), resolved #Sickle impaction versus umbilical hernia #Thrombocytopenia 2/2 infection, with heparin antibody negative, resolved #Acute hypoxic respiratory failure, resolving #asymptomatic bacteruria/UTI, resolved #Altered mental status 2/2 toxic/metabolic encephalopathy, improving #History of large thyroid/goiter with mass-effect on trachea #HFpEF, LVEF > 70% (05/2017) with mild/moderate left ear, stage I diastolic dysfunction #Bipolar disorder/schizoaffective disorder #Breast cancer S/P right lumpectomy #History of CVA VS: VSS overnight, BP 100-110/60-80s In/Out in 24hr: 1618/1925 w/ total 72032/7255, pending farr removal, retaining fluid however no pulm congestion shown on latest CXR Sedation: none [id number]: LRS: Moraxella, MRSA Respiratory/infection: qd targeting morexella (day 7) + Vancomycin 1.25g qd for MRSA (day 7) culture from sputum per ID recommendation. - Vanco trough 9.4 on 11/09, increased on vanco to 1.25 per ID. candidate for mucomyst per RT. Bedside oral suctioning PRN. - PICC line placement done, femoral line removed 11/05 Infection: As above Cardio: History of HFPEF, with stage I diastolic dysfunction, patient was at baseline edematous, and based on the intake/output the last 24 hours, patient may be retaining fluid, however no new findings on physical examination. -Received IV Lasix 20mg x 1 and resolved O2 sat back to >92% on 11/09, however the desatting could also be due to sputum clogs? - CXR showed stable cardiomegaly however no signs of pulm congestion. Hem: Patient's hemoglobin 9.2->8.1 ->8.0 -> 7.4 on latest lab, without any active signs of bleeding - s/p 1U PRBC 11/05 - PLT 80 -> 91 ->172 -> 225 stable, HIT antibodies negative, restarted Lovenox 40mg SC Qd for VTE prophylaxis. - Nose bleeding from NGT currently dried without any active bleeding. Will continue to monitor. Metabolism: Patient appeared to be mildly hypothyroidism with 0.267, however normal T4 1.64. Per patient's daughter, patient had been on the lower end of body temperature in the past. Alimentary: Appreciated nutritional consult. - May consider swallow eval today as mental status improved Neuro: clear speech, less frequency coughing. -Head CT 11/08 showed no acute process, mostly Chronic appearing lacunar infarct in left basal ganglia, right centrum semiovale, and left brachium pontis. Moderate diffuse brain parenchymal volume loss. total, spreading to every 8 hour IV infusion. Patient was taking Depakote at home for mental etiology, not seizure precaution. -Due to patient's AMS was not significantly improving, we have DCed all AMS- related meds including depakote and Singulair. - neuro consult appreciated. Ammonia <9. Will consider PT/OOB DVT prophylaxis: Lovenox SC + ALPS Tube Feeding Jevity 1.2. IV Access: PICC + Peripheral IV DNR/DNI Problem List: 1. MRSA pneumonia Pain Ratin Tomorrow's Labs & Rationales: ICU/CBC Plan DVT/Prophylaxis: mechanical
[2017-11-11 08:00] VITALS: BP 104/00
--- NOTE | 2017-11-11 11:12 | PN- Infect Dx ---
Subjective Subjective: Afebrile. She does not offer any complaints. Objective Last 24 Hrs of Vital Signs/I&O Vital Signs Date Time Temp Pulse Resp B/P B/P Pulse O2 O2 Flow FiO2 Mean Ox Delivery Rate 11/11 0400 99 Nasal 2.0L Cannula 11/11 0000 97.3 80 18 104/0 100 Nasal 2.0L Cannula 11/11 0000 100 Nasal 2.0L Cannula 11/10 2030 99 Nasal 2.0L Cannula 11/10 2030 97.9 94 18 110/60 99 Nasal 2.0L Cannula 11/10 1844 99 Nasal 2.0L Cannula 11/10 1600 97.0 79 17 96/00 97 Nasal 2.0L Cannula 11/10 1600 97 Nasal 2.0L Cannula 11/10 1200 97 Nasal 2.0L Cannula Intake & Output 11/11 1600 11/11 0800 11/11 0000 Intake Total 576 464 Output Total 407 480 Balance 169 -16 Intake, Tube 416 324 Feeding Intake, Tube 160 140 Irrigant Number 1 2 Bowel Movements Output, Urine 407 480 Physical Exam Other Physical Findings: She is more awake and alert, with her speech clearer HEENT NG tube remains in place Lungs scattered rhonchi bilaterally Heart regular rhythm with no murmur Extremities 1+ edema both lower extremities; PICC in the left upper extremity with no inflammation at the site Cheek catheter remains in place Results Last 24 Hours of Lab Results: Laboratory Tests 11/11 11/11 0500 0445 Chemistry Sodium (137 - 145 mmol/L) 143 Potassium (3.5 - 5.1 mmol/L) 4.1 Chloride (98 - 107 mmol/L) 99 Carbon Dioxide (22 - 30 mmol/L) 41 H Anion Gap (5 - 16) 3 L BUN (7 - 17 mg/dL) 16 Creatinine (0.5 - 1.0 mg/dL) 0.6 Estimated GFR (>60 ml/min) > 60 Glucose (65 - 99 mg/dL) 115 H Calcium (8.4 - 10.2 mg/dL) 8.6 Phosphorus (2.5 - 4.5 mg/dL) 3.7 Magnesium (1.6 - 2.3 mg/dL) 1.7 Total Bilirubin (0.2 - 1.3 mg/dL) 0.1 L AST (14 - 36 U/L) 29 ALT (9 - 52 U/L) 29 Ammonia (9 - 30 umol/L) < 9 L Albumin (3.5 - 5.0 g/dL) 2.2 L Hematology CBC w Diff NO MAN DIFF REQ WBC (4.8 - 10.8 /CUMM) 6.3 RBC (4.20 - 5.40 /CUMM) 2.65 L Hgb (12.0 - 16.0 G/DL) 7.4 *L Hct (37 - 47 %) 22.5 L MCV (81.0 - 99.0 FL) 85.1 MCH (27.0 - 31.0 PG) 28.0 MCHC (33.0 - 37.0 G/DL) 32.9 L RDW (11.5 - 14.5 %) 18.8 H Plt Count (130 - 400 /CUMM) 225 MPV (7.4 - 10.4 FL) 7.0 L Gran % (42.2 - 75.2 %) 67.3 Lymphocytes % (20.5 - 51.1 %) 17.2 L Monocytes % (1.7 - 9.3 %) 13.0 H Eosinophils % (0 - 5 %) 1.8 Basophils % (0.0 - 2.0 %) 0.7 Absolute Granulocytes (1.4 - 6.5 /CUMM) 4.2 Absolute Lymphocytes (1.2 - 3.4 /CUMM) 1.1 L Absolute Monocytes (0.10 - 0.60 /CUMM) 0.8 H Absolute Eosinophils (0.0 - 0.7 /CUMM) 0.1 Absolute Basophils (0.0 - 0.2 /CUMM) 0 Immunology LANDON Antibody Pending Last 24 Hours of Neo Results: No recent cultures Assessment/Plan ID Impression: Stable, with temperatures and white blood cell count remaining normal, now off antibiotics after 1 week of treatment for presumed aspiration pneumonia, with multilobar densities on her CT scan and with her sputum culture positive for Moraxella and MRSA. Her H&H has again drifted down, though her platelet count has normalized. Her mental status appears improved, though she likely continues to remain at increased risk for aspiration. Suggestion: 1. Consider repeat swallowing evaluation 2. Further evaluation/management of her anemia per the ICU team 3. Remove Cheek catheter 4. Continue to follow off antibiotics
[2017-11-11 12:00] VITALS: BP 98/00
[2017-11-11 16:00] VITALS: BP 98/00
[2017-11-12] VITALS: BP 114/00
[2017-11-12 04:45] LABS: ABSOLUTE BASOPHIL COUNT 0.1 /CUMM (0.0-0.2); ABSOLUTE EOSINOPHIL COUNT 0.1 /CUMM (0.0-0.7); ABSOLUTE MONOCYTE COUNT 0.8 /CUMM (0.10-0.60); BASOPHIL % 0.9 % (0.0-2.0); EOSINOPHIL % 1.5 % (0-5); HEMATOCRIT 22.1 % (37-47); MEAN CORPUSCULAR HGB 27.7 PG (27.0-31.0); MEAN CORPUSCULAR HGB CONC 32.6 G/DL (33.0-37.0); MEAN PLATELET VOLUME 6.9 FL (7.4-10.4); PLATELET COUNT 307 /CUMM (130-400); RBC DISTRIBUTION WIDTH 18.9 % (11.5-14.5)
--- NOTE | 2017-11-12 07:31 | PN- Resident CRCU ---
See Addendum Subjective HPI/CRCU Issues: No overnight event. Patient was seen and examined at bedside. No specific complaint, again had more improvement on mental status compared to previous days (wake up immediately to greeting, clearer speech, more eye contacts), still lethargic. No other specific complaint. Objective Vital Signs & I&O Last 8 Hrs of Vitals and I&O: Intake & Output 11/12 1600 11/12 0800 11/12 0000 Intake Total 560 560 Output Total 450 92 Balance 110 468 Intake, Oral 0 Intake, Other 560 Intake, Tube 400 Feeding Intake, Tube 160 Irrigant Number 1 1 Bowel Movements Output, Urine 450 92 Exam General Appearance: alert, awake, comfortable, lethargic Head: atraumatic Respiratory: chest non-tender, no respiratory distress, decreased breath sounds Cardiovascular: regular rate/rhythm Gastrointestinal: soft, non-tender, hernia Extremities: no edema Current Medications: Current Medications Sig/Courtney Start time Last Medication Dose Route Stop Time Status Admin Acetaminophen 1,000 MG Q6P PRN 11/03 1000 AC IV Albuterol Sulfate 3 ML Q4P PRN 11/11 1045 AC INH Aspirin 81 MG DAILY 11/04 0900 AC 11/12 PO 0920 Dextrose/Sodium 1,000 ML Q13H 11/12 1145 AC Chloride IV 11/13 0044 Enoxaparin Sodium 40 MG DAILY 11/09 1100 AC 11/12 SC 0921 Hydrocortisone 1 RON BID 11/11 1037 AC 11/12 EXT 11/16 0800 0921 Ipratropium [place] 2.5 ML TID 11/11 1400 AC 11/12 INH 0900 Nystatin 1 RON TID PRN 11/09 0415 AC 11/12 TOP 0921 Polyethylene Glycol 17 GM DAILY PRN 11/03 1030 AC 11/06 PO 0944 Rosuvastatin Calcium 5 MG AT BEDTIME 11/04 2100 AC 11/11 PO 2142 Impression/Plan Impression/Problem List Impression: On admission to ICU, Vitals: T 96.1 trending up, pulse 66, RR 20, blood pressure 80s/50s, saturating on nasal cannula 6.0% -CBC: WBC 5.5, H/H9 0.5/28.9 stable, PLT 133, bandemia 21 -BMP: Unremarkable without lactic acidosis, TSH slightly decreased 0.267, free T4 normal -UA/Microbiology: Pyuria/LE and nitrites positive -Misc: Valproic acid 56.9 within therapeutic range -ABG 7.4 149/100/41 on 6 L nasal cannula -Chest CT showed multifocal airspace disease with left lower lobe consolidation and volume loss, possibly pneumonia. 4.8 cm partially calcified right thyroid nodule. Positive for umbilical hernia as well. 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 Sedation: none Mwshetrqrlrg-ex-btgb: LRS: Moraxella, MRSA Respiratory/infection: Ceftriaxone qd targeting morexella (day 7) + Vancomycin 1.25g qd for MRSA (day 7 ) culture from sputum per ID recommendation. candidate for mucomyst per RT. Bedside oral suctioning PRN. - PICC line placement done, femoral line removed 11/05 Infection: As above Cardio: History of HFPEF, with stage I diastolic dysfunction, patient was at baseline edematous, and based on the intake/output the last 24 hours, patient may be retaining fluid, however no new findings on physical examination. -Received IV Lasix 20mg x 1 and resolved O2 sat back to >92% on 11/09, however the desatting could also be due to sputum clogs? - CXR showed stable cardiomegaly however no signs of pulm congestion. Hem: Patient's hemoglobin 9.2->8.1 ->8.0 -> 7.2 on latest lab, without any active signs of bleeding - s/p 1U PRBC 11/05 - PLT 80 -> 91 ->172 -> 307 stable, HIT antibodies negative, restarted Lovenox 40mg SC Qd for VTE prophylaxis. - DCed NGT pending swallow eval. Metabolism: Patient appeared to be mildly hypothyroidism with 0.267, however normal T4 1.64. Per patient's daughter, patient had been on the lower end of body temperature in the past. Alimentary: however now on hold 11/12 pending swallow eval. Neuro: - Will consider Psych consult on restarting abilify. clear speech, less frequency coughing. -Head CT 11/08 showed no acute process, mostly Chronic appearing lacunar infarct in left basal ganglia, right centrum semiovale, and left brachium pontis. Moderate diffuse brain parenchymal volume loss. total, spreading to every 8 hour IV infusion. Patient was taking Depakote at home for mental etiology, not seizure precaution. -Due to patient's AMS was not significantly improving, we have DCed all AMS- related meds including depakote and Singulair. - neuro consult appreciated. Ammonia <9. Will consider PT/OOB DVT prophylaxis: Lovenox SC + ALPS NPO pending swallow eval IV Access: PICC + Peripheral IV DNR/DNI Problem List: 1. MRSA pneumonia Pain Ratin Tomorrow's Labs & Rationales: ICU/CBC Plan DVT/Prophylaxis: mechanical
[2017-11-12 08:00] VITALS: BP 98/0
--- NOTE | 2017-11-12 08:02 | PN- Infect Dx ---
Subjective Subjective: Afebrile without complaints Objective Last 24 Hrs of Vital Signs/I&O Vital Signs Date Time Temp Pulse Resp B/P B/P Pulse O2 O2 Flow FiO2 Mean Ox Delivery Rate 11/12 0400 99 Nasal 2.0L Cannula 11/12 0000 100 Nasal 2.0L Cannula 11/12 0000 97.0 74 14 114/00 100 Nasal 2.0L Cannula 11/11 2129 99 Nasal 2.0L Cannula 11/11 2000 100 Nasal 2.0L Cannula 11/11 1600 96.8 76 12 98/00 98 Nasal 2.0L Cannula 11/11 1600 98 Nasal 2.0L Cannula 11/11 1200 96 Nasal 2.0L Cannula 11/11 1200 97.3 66 14 98/00 99 Nasal 2.0L Cannula 11/11 0918 99 Nasal 2.0L Cannula 11/11 0800 97.1 84 18 104/00 98 Nasal 2.0L Cannula 11/11 0800 98 Nasal 2.0L Cannula Intake & Output 11/12 0800 11/12 0000 11/11 1600 Intake Total 560 560 905 Output Total 450 92 300 Balance 110 468 605 Intake, IV 250 Intake, Oral 0 Intake, Other 560 Intake, Tube 400 445 Feeding Intake, Tube 160 210 Irrigant Number 1 1 1 Bowel Movements Output, Urine 450 92 300 Physical Exam Other Physical Findings: She is awake and alert in no acute distress. Her speech remains somewhat garbled. Lungs scattered rhonchi bilaterally Heart regular rhythm with no murmur Extremities 1+ edema both lower extremities; PICC in the left upper extremity with no inflammation at the site Cheek catheter remains in place Results Last 24 Hours of Lab Results: Laboratory Tests 11/12 404 Chemistry Sodium (137 - 145 mmol/L) 142 Potassium (3.5 - 5.1 mmol/L) 3.9 Chloride (98 - 107 mmol/L) 99 Carbon Dioxide (22 - 30 mmol/L) 39 H Anion Gap (5 - 16) 4 L BUN (7 - 17 mg/dL) 17 Creatinine (0.5 - 1.0 mg/dL) 0.5 Estimated GFR (>60 ml/min) > 60 Glucose (65 - 99 mg/dL) 114 H Calcium (8.4 - 10.2 mg/dL) 8.4 Phosphorus (2.5 - 4.5 mg/dL) 4.0 Magnesium (1.6 - 2.3 mg/dL) 2.0 Total Bilirubin (0.2 - 1.3 mg/dL) 0.1 L AST (14 - 36 U/L) 27 ALT (9 - 52 U/L) 35 Albumin (3.5 - 5.0 g/dL) 2.3 L Hematology CBC w Diff NO MAN DIFF REQ WBC (4.8 - 10.8 /CUMM) 8.0 RBC (4.20 - 5.40 /CUMM) 2.60 L Hgb (12.0 - 16.0 G/DL) 7.2 *L Hct (37 - 47 %) 22.1 L MCV (81.0 - 99.0 FL) 85.0 MCH (27.0 - 31.0 PG) 27.7 MCHC (33.0 - 37.0 G/DL) 32.6 L RDW (11.5 - 14.5 %) 18.9 H Plt Count (130 - 400 /CUMM) 307 MPV (7.4 - 10.4 FL) 6.9 L Gran % (42.2 - 75.2 %) 75.0 Lymphocytes % (20.5 - 51.1 %) 12.7 L Monocytes % (1.7 - 9.3 %) 9.9 H Eosinophils % (0 - 5 %) 1.5 Basophils % (0.0 - 2.0 %) 0.9 Absolute Granulocytes (1.4 - 6.5 /CUMM) 6.0 Absolute Lymphocytes (1.2 - 3.4 /CUMM) 1.0 L Absolute Monocytes (0.10 - 0.60 /CUMM) 0.8 H Absolute Eosinophils (0.0 - 0.7 /CUMM) 0.1 Absolute Basophils (0.0 - 0.2 /CUMM) 0.1 Last 24 Hours of Neo Results: No recent cultures Assessment/Plan ID Impression: Stable, with temperatures and white blood cell count remaining normal, off antibiotics after 1 week of treatment for presumed aspiration pneumonia, with multilobar densities on her CT scan and with her sputum culture positive for Moraxella and MRSA. Her mental status appears improved, though she likely continues to remain at increased risk for aspiration. Suggestion: 1. Consider repeat swallowing evaluation 2. Remove Cheek catheter 3. Continue to follow off antibiotics Will no longer follow at this time but please call with any questions
[2017-11-12 12:00] VITALS: BP 92/0
--- NOTE | 2017-11-12 14:55 | Transfer of Care Summary ---
Hospital Course Course Hospital Course: Reason for ICU admission: Hypotension HPI: Ms. Max is a 72 year old woman with multiple medical problems significant for Bipolar disorder, schizophrenia, HFpEF, and "recurrent hypothermia" sent in from [facility] for evaluation of shortness of breath with hypoxia. Upon ER admisison, patient was somnolent and lethargic to give a complete history. Information collected from ECF/W 10 revealed that patient was at baseline alert and oriented and conversational (confirmed with the daughter later in the afternoon upon admission to ICU). Over the past few days patient was reported to be more tolerated and O2 saturation was 88%, with CBC revealed WBC 5.1/with bandemia, and CXR demonstrated right upper lobe airspace disease possibly edema with recommendation to obtain CT to exclude neoplasm. Person to notify: Daughter Gala Max (Cellphone:[phone], Work: ) On admission to ICU, Vitals: T 96.1 trending up, pulse 66, RR 20, blood pressure 80s/50s, saturating on nasal cannula 6.0% -CBC: WBC 5.5, H/H9 0.5/28.9 stable, PLT 133, bandemia 21 -BMP: Unremarkable without lactic acidosis, TSH slightly decreased 0.267, free T4 normal -UA/Microbiology: Pyuria/LE and nitrites positive -Misc: Valproic acid 56.9 within therapeutic range -ABG 7.4 1/49/100/41 on 6 L nasal cannula -Chest CT showed multifocal airspace disease with left lower lobe consolidation and volume loss, possibly pneumonia. 4.8 cm partially calcified right thyroid nodule. Positive for umbilical hernia as well. 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 Sedation: none Vhduwuazqbcv-vc-vrli: LRS: Moraxella, MRSA Respiratory/infection: Upon admission, patient was playing the Femoral line for blood pressure managements, and was started on ceftriaxone/vancomycin for treatment of H/MRSA pneumonia for total of 7 days, and now off antibiotics for 2 days, he remains stable afebrile. On admission, patient was hypothermic, however after treatment , patient's temperature stabilized. Patient was continued on TRC nebulizer/ chest PT, and due to sulfa allergy, patient was not a candidate for Mucomyst per respiration therapist. Patient also needs a bedside oral suctioning as needed. Patient had a PICC line placement for both vancomycin, also has a hard stick due to bilateral upper extremity edema.. Cardio: Patient had history of HFPEF, with stage I diastolic dysfunction, patient was at baseline edematous, and based on the intake/output during the ICU stay, patient may be retaining fluid, however no new findings on physical examination. Patient had received IV Lasix 20 mg 2 during the ICU stay secondary to intermittent descending, however now resolved and the oxygen desaturation could be due to sputum clots. Patient's latest chest x-ray showed stable cardiomegaly without any signs of pulmonary congestion. If any active physical findings, patient may have repeated chest x-ray for further assessment. Hem: On admission, patient's hemoglobin 9.2->8.1 ->8.0 -> 7.2 on latest lab, without any active signs of bleeding. Patient was status post 1 unit of PRBC on 11/05, and her thrombocytopenia improved with PLT 80 -> 91 ->172 -> 307 stable, HIT antibodies negative, she was initially help on heparin concerning for HIT, however now restarted Lovenox 40mg SC Qd for VTE prophylaxis. Metabolism: Patient appeared to be mildly hypothyroidism with 0.267, however normal T4 1.64. Per patient's daughter, patient had been on the lower end of body temperature in the past. Her renal function remained stable over ICU. Alimentary: Upon admission, patient was kept NPO for high risk of aspiration, and later started on tube feeding with NGT at Jevity 1.2 with max speed of 50 w/ 80 flush. Patient was on hold of tube feeding on 11/12 pending swallow eval, yet her mental status was still not adequate for a complete swallow eval. At this point, patient will be kept on D5W 1/2 NS IVF, NPO, and pending swallow eval on 11/13 again. Should patient fails, daughter had previously agreed for PEG tube placement. Neuro: Patient's remained lethargic over the ICU stay, that she would respond to command, had some eye contacts, conversational with intermittent mumbled/clear speech. Head CT 11/08 showed no acute process, mostly Chronic appearing lacunar infarct in left basal ganglia, right centrum semiovale, and left brachium pontis. Moderate diffuse brain parenchymal volume loss. Patient was at home on depakote, and in ICU, Switched from oral Depakote to IV Depacon was equivalent daily dose of 750 mg total, spreading to every 8 hour IV infusion. Patient was taking Depakote at home for mental etiology, not seizure precaution. Due to patient's AMS was not significantly improving, we have DCed all AMS-related meds including depakote and Singulair. Neuro consult appreciated. Ammonia <9. Will consider PT/OOB Now pending Psych consult. DVT prophylaxis: Lovenox SC + ALPS NPO pending swallow eval IV Access: PICC + Peripheral IV DNR/DNI Mechanical ventilation: No NIPPV: No Antibiotics plan: Vancomycin/Ceftriaxone x 7 days, now off ABX >48hrs, stable afebrile Catheters/ Lines plan: Femoral Artery line placed on admission, removed once PICC line placed. Things to be followed up in the floor: - Swallow eval on 11/13 - If failed swallow eval, consider replacement of NGT and restart tube feeding of Jevity 1.2 according to nutrition - Discuss with daughter regarding PEG tube placement pending above, need GI consult if she agrees - Please re-consult Psych once patient's mental status improves to the point that an interview could be carried out. Assessment/Plan: As above
[2017-11-12 15:03] VITALS: BP 86/0
[2017-11-12 16:19] VITALS: BP 86/0
[2017-11-12 17:30] VITALS: BP 92/0
[2017-11-13] VITALS: BP 84/57
[2017-11-13 04:00] VITALS: BP 110/56
[2017-11-13 06:10] LABS: ABSOLUTE BASOPHIL COUNT 0.1 /CUMM (0.0-0.2); ABSOLUTE EOSINOPHIL COUNT 0.1 /CUMM (0.0-0.7); ABSOLUTE GRANULOCYTE CT 5.9 /CUMM (1.4-6.5); ABSOLUTE LYMPH COUNT 1.2 /CUMM (1.2-3.4); ABSOLUTE MONOCYTE COUNT 0.6 /CUMM (0.10-0.60); BASOPHIL % 0.9 % (0.0-2.0); EOSINOPHIL % 1.3 % (0-5); GRANULOCYTE % 74.6 % (42.2-75.2); HEMATOCRIT 22.1 % (37-47); MEAN CORPUSCULAR HGB 27.7 PG (27.0-31.0); MEAN CORPUSCULAR HGB CONC 32.3 G/DL (33.0-37.0); MEAN CORPUSCULAR VOLUME 85.8 FL (81.0-99.0); MEAN PLATELET VOLUME 6.6 FL (7.4-10.4); PLATELET COUNT 384 /CUMM (130-400); RBC DISTRIBUTION WIDTH 18.9 % (11.5-14.5); RED BLOOD CELL CT 2.58 /CUMM (4.20-5.40); WHITE BLOOD CELL COUNT 7.9 /CUMM (4.8-10.8)
[2017-11-13 08:00] VITALS: BP 100/0
--- NOTE | 2017-11-13 08:15 | PN- Resident CRCU ---
MandujanoJosephine 11/13/17 0815: Subjective HPI/CRCU Issues: No overnight event. Patient was seen and examined at bedside. Subjective feeling of dizziness that she attributed "low blood sugar". Per nursing staff, guaiac negative yesterday. She appeared to be more conversational than before, still lethargic and coughing , though at less frequency. No other specific complaint. Objective Vital Signs & I&O Last 8 Hrs of Vitals and I&O: Intake & Output 11/13 1600 11/13 0800 11/13 0000 Intake Total 552 750 Output Total Balance 552 750 Intake, IV 552 750 Intake, Oral 0 Number 0 Bowel Movements Exam General Appearance: alert, awake, lethargic Head: atraumatic, normal appearance Respiratory: chest non-tender, decreased breath sounds, rhonchi Cardiovascular: regular rate/rhythm Gastrointestinal: normal bowel sounds, soft, non-tender, hernia Extremities: +3 edema BLE, same from previous days Current Medications: Current Medications Sig/Courtney Start time Last Medication Dose Route Stop Time Status Admin Acetaminophen 1,000 MG Q6P PRN 11/03 1000 AC IV Albuterol Sulfate 3 ML Q4P PRN 11/11 1045 AC INH Aspirin 81 MG DAILY 11/04 0900 AC 11/12 PO 0920 Dextrose/Sodium 1,000 ML Q13H 11/13 0200 AC 11/13 Chloride IV 11/13 1459 0200 Dextrose/Sodium 1,000 ML Q13H 11/12 1145 DC 11/12 Chloride IV 11/13 0044 1157 Enoxaparin Sodium 40 MG DAILY 11/09 1100 AC 11/12 SC 0921 Hydrocortisone 1 RON BID 11/11 1037 AC 11/12 EXT 11/16 0800 2008 Ipratropium [place] 2.5 ML TID 11/11 1400 AC 11/13 INH 0751 Nystatin 1 RON TID PRN 11/09 0415 AC 11/12 TOP 0921 Polyethylene Glycol 17 GM DAILY PRN 11/03 1030 AC 11/06 PO 0944 Rosuvastatin Calcium 5 MG AT BEDTIME 11/04 2100 AC 11/11 PO 2142 Impression/Plan Impression/Problem List Impression: On admission to ICU, Vitals: T 96.1 trending up, pulse 66, RR 20, blood pressure 80s/50s, saturating on nasal cannula 6.0% -CBC: WBC 5.5, H/H9 0.5/28.9 stable, PLT 133, bandemia 21 -BMP: Unremarkable without lactic acidosis, TSH slightly decreased 0.267, free T4 normal -UA/Microbiology: Pyuria/LE and nitrites positive -Misc: Valproic acid 56.9 within therapeutic range -ABG 7.4 1/49/100/41 on 6 L nasal cannula -Chest CT showed multifocal airspace disease with left lower lobe consolidation and volume loss, possibly pneumonia. 4.8 cm partially calcified right thyroid nodule. Positive for umbilical hernia as well. 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 candidate for mucomyst per RT. Bedside oral suctioning PRN. - PICC line placement done, femoral line removed 11/05 Infection: As above Cardio: History of HFPEF, with stage I diastolic dysfunction, patient was at baseline edematous, and based on the intake/output the last 24 hours, patient may be retaining fluid, however no new findings on physical examination. -Received IV Lasix 20mg x 1 and resolved O2 sat back to >92% on 11/09, however the desatting could also be due to sputum clogs? - CXR showed stable cardiomegaly however no signs of pulm congestion. Hem: Patient's hemoglobin 9.2-> 8.1 -> 8.0 -> 7.1 on latest lab, without any active signs of bleeding - s/p 1U PRBC 11/05, will give another unit today. - PLT 80 -> 91 ->172 -> 307 -> 384 stable, HIT antibodies negative, restarted Lovenox 40mg SC Qd for VTE prophylaxis. - Guaiac negative 11/12 by nursing staff - DCed NGT pending swallow eval today. Metabolism: Patient appeared to be mildly hypothyroidism with 0.267, however normal T4 1.64. Per patient's daughter, patient had been on the lower end of body temperature in the past. Alimentary: however now on hold 11/12 pending swallow eval. - Pending swallow eval retry on 11/13 Neuro: - Will consider GeriPsych/Psych consult before restarting abilify. clear speech, less frequency coughing. -Head CT 11/08 showed no acute process, mostly Chronic appearing lacunar infarct in left basal ganglia, right centrum semiovale, and left brachium pontis. Moderate diffuse brain parenchymal volume loss. total, spreading to every 8 hour IV infusion. Patient was taking Depakote at home for mental etiology, not seizure precaution. -Due to patient's AMS was not significantly improving, we have DCed all AMS- related meds including depakote and Singulair. - neuro consult appreciated. Ammonia <9. Will consider PT/OOB DVT prophylaxis: Lovenox SC + ALPS NPO pending swallow eval IV Access: PICC + Peripheral IV DNR/DNI Problem List: 1. Weakness Pain Ratin Tomorrow's Labs & Rationales: ICU/CBC Plan DVT/Prophylaxis: Boo Lujan MD 11/13/17 0854: Attending MD Review Statement Attending Sign Off Attending Cosign Statement: I have: examined this patient, reviewed aval EMR data, personally reviewd images, discussd w/resident/PA/SET O TYPE OPERATOR, discussed mgmt plan w/lori, discussed mgmt plan w/CM, discussed mgmt plan w/pt, agreed w/resident/PA/SET O TYPE OPERATOR, amended to note. Other Findings: Impression 72 year old woman * downgraded to from ICU stay, where she was admitted for HCAP with MRSA and moraxella pathogens * anemia - will order anemia workup Plan - hold -chest PT -NGT removed, pending swallowing evaluation -s/p vancomycin and ceftriaxone - 7 days total completed -anemia workup - including iron studies, b12, folate, periopheral smear, LDH, haptoglobin -give 1 unit prbc and recheck cbc pm DNR/DNI
[2017-11-13 16:00] VITALS: BP 108/0
[2017-11-13 16:48] LABS: ABSOLUTE BASOPHIL COUNT 0.1 /CUMM (0.0-0.2); ABSOLUTE EOSINOPHIL COUNT 0.1 /CUMM (0.0-0.7); ABSOLUTE GRANULOCYTE CT 6.5 /CUMM (1.4-6.5); ABSOLUTE LYMPH COUNT 1.2 /CUMM (1.2-3.4); ABSOLUTE MONOCYTE COUNT 0.5 /CUMM (0.10-0.60); BASOPHIL % 0.8 % (0.0-2.0); EOSINOPHIL % 1.4 % (0-5); GRANULOCYTE % 77.1 % (42.2-75.2); HEMATOCRIT 25.5 % (37-47); MEAN CORPUSCULAR HGB CONC 32.5 G/DL (33.0-37.0); MEAN CORPUSCULAR VOLUME 86.1 FL (81.0-99.0); MEAN PLATELET VOLUME 6.8 FL (7.4-10.4); PLATELET COUNT 393 /CUMM (130-400); RBC DISTRIBUTION WIDTH 17.3 % (11.5-14.5); RED BLOOD CELL CT 2.97 /CUMM (4.20-5.40); WHITE BLOOD CELL COUNT 8.4 /CUMM (4.8-10.8)
[2017-11-13 18:21] VITALS: BP 110/00
[2017-11-13 23:11] VITALS: BP 120/69
[2017-11-14 04:54] VITALS: BP 122/68
--- NOTE | 2017-11-14 08:17 | PN- Housestaff ---
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 Objective Last 24 Hrs of Vital Signs/I&O Vital Signs Date Time Temp Pulse Resp B/P B/P Pulse O2 O2 Flow FiO2 Mean Ox Delivery Rate 11/14 0926 94 Room Air 11/14 0800 Room Air 11/14 0454 97.6 71 20 122/68 95 Room Air 11/14 0000 Room Air 11/13 2311 97.6 86 20 120/69 93 Room Air 11/13 2120 92 Room Air 11/13 1830 Room Air 11/13 1821 95.6 70 18 110/00 93 Room Air 11/13 1600 96 Room Air 11/13 1600 94.8 60 16 108/0 96 Room Air 11/13 1401 95 Room Air 11/13 1300 94.1 11/13 1153 93.9 94 Room Air 11/13 1052 94.4 Intake & Output 11/14 1600 11/14 0800 11/14 0000 Intake Total 300 400 Output Total Balance 300 400 Intake, IV 60 Intake, Oral 240 400 Number 1 1 Bowel Movements Physical Exam General Appearance: Alert, Cooperative, No Acute Distress Cardiovascular: Regular Rate, Normal S1, Normal S2, No Murmurs Lungs: bilateral rhonchi Abdomen: Normal Bowel Sounds, Soft, No Tenderness, No Masses Extremities: No Clubbing, No Cyanosis, edema 2+ b/l lower extremities Current Medications: Current Medications Sig/Courtney Start time Last Medication Dose Route Stop Time Status Admin Acetaminophen 1,000 MG Q6P PRN 11/03 1000 AC IV Albuterol Sulfate 3 ML Q4P PRN 11/11 1045 AC INH Aripiprazole 5 MG DAILY 11/14 0948 AC PO Aspirin 81 MG DAILY 11/04 0900 AC 11/14 PO 0819 Benzocaine/Menthol 1 GABE Q2P PRN 11/13 2200 AC PO Dextrose/Sodium 1,000 ML Q13H 11/13 0200 DC 11/13 Chloride IV 11/13 1459 0200 Divalproex Sodium 250 MG 0800 11/15 0800 AC PO Divalproex Sodium 500 MG AT BEDTIME 11/14 2100 AC PO Enoxaparin Sodium 40 MG DAILY 11/09 1100 AC 11/14 SC 0819 Hydrocortisone 1 RON BID 11/11 1037 AC 11/14 EXT 11/16 0800 0819 Ipratropium [place] 2.5 ML TID 11/11 1400 AC 11/14 INH 0923 Nystatin 1 RON TID PRN 11/09 0415 AC 11/12 TOP 0921 Polyethylene Glycol 17 GM DAILY PRN 11/03 1030 AC 11/06 PO 0944 Potassium Chloride 40 MEQ ONCE ONE 11/13 1300 DC 11/13 PO 11/13 1301 1608 Rosuvastatin Calcium 5 MG AT BEDTIME 11/04 2100 AC 11/13 PO 2034 Last 24 Hrs of Lab/Neo Results Last 24 Hrs of Labs/Mics: Laboratory Tests 11/14/17 0550: Anion Gap 5, Estimated GFR > 60, Glucose 66, Calcium 8.5, Phosphorus 3.2, Magnesium 1.9, Total Bilirubin 0.3, AST 34, ALT 37, Albumin 2.3 L, CBC w Diff NO MAN DIFF REQ, RBC 3.03 L, MCV 85.0, MCH 28.7, MCHC 33.8, RDW 17.4 H, MPV 6.9 L, Gran % 72.2, Lymphocytes % 17.1 L, Monocytes % 8.1, Eosinophils % 1.5, Basophils % 1.1, Absolute Granulocytes 5.9, Absolute Lymphocytes 1.4, Absolute Monocytes 0.7 H, Absolute Eosinophils 0.1, Absolute Basophils 0.1 11/13/17 1800: CBC w Diff Cancelled, WBC Cancelled, RBC Cancelled, Hgb Cancelled, Hct Cancelled , MCV Cancelled, MCH Cancelled, MCHC Cancelled, RDW Cancelled, Plt Count Cancelled, MPV Cancelled 11/13/17 1550: CBC w Diff NO MAN DIFF REQ, RBC 2.97 L, MCV 86.1, MCH 28.0, MCHC 32.5 L, RDW 17.3 H, MPV 6.8 L, Gran % 77.1 H, Lymphocytes % 14.3 L, Monocytes % 6.4, Eosinophils % 1.4, Basophils % 0.8, Absolute Granulocytes 6.5, Absolute Lymphocytes 1.2, Absolute Monocytes 0.5, Absolute Eosinophils 0.1, Absolute Basophils 0.1 Microbiology 11/13 0592 BLOOD: Blood Culture - CAN Cancelled: Cancelled via OE: Per MD Decision Assessment/Plan Assessment: 72 year old woman with past medical history significant for bipolar/ schizoaffective disorder, HFpEF, and "recurrent hypothermia" was sent in from [facility], [place] for evaluation of shortness of breath with hypoxia. Patient presented with altered mental status, bandemia, hypothermia, hypotension, hypoxemia and multifocal airspace disease on Chest CT. ABG 7.4 1/100/41 on 6 L nasal cannula Altered mental status 2/2 metabolic encephalopathy: Likely secondary to infection, improving Valproic acid levels were therapeutic Bipolar disorder/schizoaffective disorder Resume 250mg depakote in the morning and 500mg po in the evening Resume abilify 5mg po daily Consider geripsych Head CT 11/08 showed no acute process, mostly Chronic appearing lacunar infarct in left basal ganglia, right centrum semiovale, and left brachium pontis. Moderate diffuse brain parenchymal volume loss. Sepsis (hypothermia, leukopenia/bandemia, hypotension, thrombocytopenia, hypoxia with multifocal airspace disease on CT) Acute hypoxic respiratory failure secondary to HCAP PNA MRSA/Morexella on sputum culture s/p 7 day course of antibiotics with ceftriaxone and vancomycin Currently normothermic Asymptomatic bacteruria-pyruia and nitrites TRC evaluation Continue nebulized albuterol Chest CT-Multifocal airspace disease, left lower lobe consolidation and volume loss HFpEF: Echo LVEF > 70% (05/2017), stage I diastolic dysfunction Received lasix in the ICU CXR showed stable cardiomegaly however no signs of pulm congestion Restart lasix 20mg daily History of CVA ASA/Statin Hematology Anemia-Transfused 2u pRBCs from admission CBC stable, guiaic negative, retics 2.42 haptoglobin pending, heparin ab negative Restart iron Thrombocytopenia-improved Was previously on tube feeds, now nectar/puree diet following swallow evaluation DVT ppx-lovenox subcutaneous + ALPS DNR/DNI Daughter Gala Max (Cellphone:[phone], Work: ) Problem List: 1. MRSA pneumonia 2. Thrombocytopenia 3. HCAP (healthcare-associated pneumonia) 4. Sepsis Pain Ratin Pain Location: n/a Pain Goal: Pain 4 or less Pain Plan: prn Tomorrow's Labs & Rationales: cbc - CXR showed stable cardiomegaly however no signs of pulm congestion. Hem: Patient's hemoglobin 9.2-> 8.1 -> 8.0 -> 7.1 on latest lab, without any active signs of bleeding - s/p 1U PRBC 11/05, will give another unit today. - PLT 80 -> 91 ->172 -> 307 -> 384 stable, HIT antibodies negative, restarted Lovenox 40mg SC Qd for VTE prophylaxis. - Guaiac negative 11/12 by nursing staff - DCed NGT pending swallow eval today. Metabolism: Patient appeared to be mildly hypothyroidism with 0.267, however normal T4 1.64. Per patient's daughter, patient had been on the lower end of body temperature in the past. Alimentary: however now on hold 11/12 pending swallow eval. - Pending swallow eval retry on 11/13 Neuro: - Will consider GeriPsych/Psych consult before restarting abilify. clear speech, less frequency coughing. -Head CT 11/08 showed no acute process, mostly Chronic appearing lacunar infarct in left basal ganglia, right centrum semiovale, and left brachium pontis. Moderate diffuse brain parenchymal volume loss. total, spreading to every 8 hour IV infusion. Patient was taking Depakote at home for mental etiology, not seizure precaution. -Due to patient's AMS was not significantly improving, we have DCed all AMS- related meds including depakote and Singulair. - neuro consult appreciated. Ammonia <9. Will consider PT/OOB DVT ppx-Lovenox subcutaneous + ALPS DNR/DNI Daughter Gala Max (Cellphone:[phone], Work: )
[2017-11-14 08:18] LABS: ABSOLUTE BASOPHIL COUNT 0.1 /CUMM (0.0-0.2); ABSOLUTE EOSINOPHIL COUNT 0.1 /CUMM (0.0-0.7); ABSOLUTE GRANULOCYTE CT 5.9 /CUMM (1.4-6.5); ABSOLUTE LYMPH COUNT 1.4 /CUMM (1.2-3.4); ABSOLUTE MONOCYTE COUNT 0.7 /CUMM (0.10-0.60); BASOPHIL % 1.1 % (0.0-2.0); EOSINOPHIL % 1.5 % (0-5); GRANULOCYTE % 72.2 % (42.2-75.2); HEMATOCRIT 25.7 % (37-47); MEAN CORPUSCULAR HGB 28.7 PG (27.0-31.0); MEAN CORPUSCULAR HGB CONC 33.8 G/DL (33.0-37.0); MEAN PLATELET VOLUME 6.9 FL (7.4-10.4); PLATELET COUNT 482 /CUMM (130-400); RBC DISTRIBUTION WIDTH 17.4 % (11.5-14.5); RED BLOOD CELL CT 3.03 /CUMM (4.20-5.40); WHITE BLOOD CELL COUNT 8.1 /CUMM (4.8-10.8)
[2017-11-14 15:49] VITALS: BP 114/71
[2017-11-14 22:08] VITALS: BP 110/60
[2017-11-15 07:12] VITALS: BP 129/52
--- NOTE | 2017-11-15 07:17 | PN- Housestaff ---
Cathy GARCIA,Rudy 11/15/17 0717: Subjective Follow-up For: HCAP 2/2 MRSA/Morexella PNA, resolved Sepsis (hypothermia, leukopenia/bandemia, source of infection), resolved Thrombocytopenia 2/2 infection Acute hypoxic respiratory failure, resolving Asymptomatic bacteruria/UTI, resolved Altered mental status secondary to metabolic encephalopathy, improving HFpEF Bipolar disorder/schizoaffective disorder History of CVA Subjective: patient passed her swallow evaluation and was started on puree/nectar diet cough subjectively is the same, but cough is wet concerning for ongoing aspiration Review of Systems Constitutional: Reports: see HPI. Objective Last 24 Hrs of Vital Signs/I&O Vital Signs Date Time Temp Pulse Resp B/P B/P Pulse O2 O2 Flow FiO2 Mean Ox Delivery Rate 11/15 0800 97 Room Air 11/15 0712 98.0 66 18 129/52 92 11/15 0000 Room Air 11/14 2208 98.1 65 19 110/60 94 Room Air 11/14 1910 92 Room Air 11/14 1600 Room Air 11/14 1549 97.4 66 18 114/71 97 Room Air Intake & Output 11/15 1600 11/15 0800 11/15 0000 Intake Total 240 160 Output Total Balance 240 160 Intake, Oral 240 160 Number 3 Bowel Movements Physical Exam General Appearance: Alert, Cooperative, No Acute Distress Cardiovascular: Regular Rate, Normal S1, Normal S2, No Murmurs Lungs: bilateral rhonchi, transmitted upper airway sounds, wet cough Abdomen: Normal Bowel Sounds, Soft, No Tenderness, No Masses Extremities: No Clubbing, No Cyanosis, 2+ bilateral lower extremity edema Current Medications: Current Medications Sig/Courtney Start time Last Medication Dose Route Stop Time Status Admin Acetaminophen 1,000 MG Q6P PRN 11/03 1000 AC IV Albuterol Sulfate 3 ML Q4P PRN 11/11 1045 AC INH Alteplase, 2 MG ONE ONE 11/14 2115 DC 11/14 Recombinant IV 11/14 2116 2301 Aripiprazole 5 MG DAILY 11/14 0948 AC 11/15 PO 0838 Aspirin 81 MG DAILY 11/04 0900 AC 11/15 PO 0838 Benzocaine/Menthol 1 GABE Q2P PRN 11/13 2200 AC 11/15 PO 0147 Benzonatate 100 MG TID 11/14 2100 AC 11/14 PO 2052 Divalproex Sodium 250 MG 0800 11/15 0800 AC 11/15 PO 0838 Divalproex Sodium 500 MG AT BEDTIME 11/14 2100 AC 11/14 PO 2052 Enoxaparin Sodium 40 MG DAILY 11/09 1100 AC 11/15 SC 0838 Ferrous Sulfate 325 MG DAILY 11/15 0900 AC 11/15 PO 0838 Furosemide 20 MG DAILY 11/14 1017 AC 11/15 PO 0838 Hydrocortisone 1 RON BID 11/11 1037 AC 11/14 EXT 11/16 082053 Ipratropium [place] 2.5 ML TID 11/11 1400 AC 11/14 INH 1910 Nystatin 1 RON TID PRN 11/09 0415 AC 11/12 TOP 0921 Patient Medication 1 ED ONE ONE 11/15 1315 DC Teaching ED 11/15 1316 Polyethylene Glycol 17 GM DAILY PRN 11/03 1030 AC 11/06 PO 0944 Rosuvastatin Calcium 5 MG AT BEDTIME 11/04 2100 AC 11/14 PO 2052 Assessment/Plan Assessment: 72 year old woman with past medical history significant for bipolar/ schizoaffective disorder, HFpEF, and "recurrent hypothermia" was sent in from [facility] for evaluation of shortness of breath with hypoxia. Patient presented with altered mental status, bandemia, hypothermia, hypotension, hypoxemia and multifocal airspace disease on Chest CT. ABG 7.4 1/49/100/41 on 6 L nasal cannula Altered mental status 2/2 metabolic encephalopathy: Likely secondary to infection, improving Valproic acid levels were therapeutic Bipolar disorder/schizoaffective disorder Resume 250mg depakote in the morning and 500mg po in the evening Resume abilify 5mg po daily Consider geripsych consultation Head CT 11/08 showed no acute process, mostly Chronic appearing lacunar infarct in left basal ganglia, right centrum semiovale, and left brachium pontis. Moderate diffuse brain parenchymal volume loss. Sepsis (hypothermia, leukopenia/bandemia, hypotension, thrombocytopenia, hypoxia with multifocal airspace disease on CT) Acute hypoxic respiratory failure secondary to HCAP PNA MRSA/Morexella on sputum culture s/p 7 day course of antibiotics with ceftriaxone and vancomycin Currently normothermic Asymptomatic bacteruria-pyruia and nitrites TRC evaluation Continue nebulized albuterol Chest CT-Multifocal airspace disease, left lower lobe consolidation and volume loss HFpEF: Echo LVEF > 70% (05/2017), stage I diastolic dysfunction Received lasix in the ICU CXR showed stable cardiomegaly however no signs of pulm congestion Restart lasix 20mg daily History of CVA ASA/Statin Hematology Anemia-Transfused 2u pRBCs from admission CBC stable, guiaic negative, retics 2.42 haptoglobin pending, heparin ab negative Restart iron Thrombocytopenia-improved Repeat CBC NPO except for medications, will discuss with speech and swallow therapy, possible modified barium DVT ppx-lovenox subcutaneous + ALPS DNR/DNI Daughter Gala Max (Cellphone:[phone], Work: ) Problem List: 1. MRSA pneumonia 2. Thrombocytopenia 3. Sepsis 4. Schizoaffective disorder 5. Altered mental status Pain Ratin Pain Location: n/a Pain Goal: Pain 4 or less Pain Plan: prn Tomorrow's Labs & Rationales: mike Tavera MD,Taye 11/15/17 1256: Attending MD Review Statement Attending Statement Attending MD Statement: examined this patient, discuss w/resident/PA/VAULT CASHIER, agreed w/resident/PA/VAULT CASHIER, reviewed EMR data (avail), discussed with nursing, discussed with case mgmt, amended to note Attending Assessment/Plan: Patient seen and examined. Medical records reviewed. Patient initially admitted to intensive care unit management of sepsis secondary to pneumonia. When is presumed to be due to aspiration. She has completed a 7 day course of antibiotic therapy and was transferred to the general medical floor. She was initially placed on NG tube feeding was cleared by the speech therapist for oral intake. This morning she is very lethargic. She has audible congested upper airway breath sounds. She had just attempted some breakfast this morning. She was desaturating into the mid 80s however oxygenation improved without supplementation. On auscultation she has congested breath sounds bilaterally mostly upper airway nature. Chest x-ray was repeated today and showed no change in bilateral lung consolidations. follow-up by the speech pathologist was requested and they recommended obtaining a modified barium swallow. Plan: -Patient has had repeated hospitalizations for aspiration pneumonia. She is improving clinically following seven-day course of antibiotic therapy. Continue to monitor patient off antibiotic therapy for now. She does have a history of an enlarged subclavian goiter with mass-effect. She continues to remain at high risk for aspiration. Follow recommendations of the speech therapist. -Etiology of her acute on chronic anemia is unknown. Stool guaiac is negative. Hemolytic workup is negative. Continue to monitor her hemoglobin level
--- NOTE | 2017-11-15 12:42 | RADIOLOGY REPORT ---
EXAMINATION: XR PORTABLE CHEST CLINICAL INFORMATION: Cough. Presumptive diagnosis of aspiration pneumonia. COMPARISON: Several prior chest x-rays, most recent of which is dated 11/09/2017. TECHNIQUE: Portable AP semierect view of the chest was obtained. FINDINGS: Evaluation is limited due to the patient's head projecting over the upper chest, obscuring assessment. Previously seen enteric tube has been removed. Left subclavian PICC line is in place with tip in the deep SVC, unchanged. The cardiomediastinal silhouette is enlarged, unchanged. Calcification, ectasia and tortuosity of the aorta is also again noted. Low lung volumes are seen with increased hazy opacities over the mid and lower lungs bilaterally, similar to prior study. Findings are consistent with bibasilar airspace disease, such as pneumonia and small left pleural effusion, unchanged compared to prior exam. Bony structures are unremarkable. IMPRESSION: 1. Left subclavian PICC line tip in the deep SVC, unchanged. 2. Cardiomegaly. 3. No change in dense left lower lobe consolidation and associated small effusion and no change in patchy right lower lobe consolidation.
--- NOTE | 2017-11-15 12:45 | RADIOLOGY REPORT ---
EXAMINATION: XR MODIFIED BARIUM SWALLOW CLINICAL INFORMATION: Coughing on food. Presumptive diagnosis of aspiration. COMPARISON: None. TECHNIQUE: A modified barium swallow was performed with speech pathologist in attendance. Pur?e, honey thick, nectar thick, thin, bread, and cracker consistencies were given to the patient and the swallowing mechanism was observed fluoroscopically with several spot films taken using the last image hold feature. FLUOROSCOPY TIME: 2 minutes 23 seconds. FINDINGS: With all consistencies, the oral phase of swallowing is abnormal with difficulty in posterior bolus propagation and piecemeal deglutition seen. No laryngeal or nasopharyngeal aspiration seen. No significant pooling of contrast is noted in the valleculae or piriform sinuses. IMPRESSION: Disordered oral phase of swallowing. Otherwise unremarkable study. Speech pathologist assessment issued separately.
[2017-11-15 14:46] VITALS: BP 106/58
[2017-11-15 16:02] LABS: ABSOLUTE BASOPHIL COUNT 0 /CUMM (0.0-0.2); ABSOLUTE EOSINOPHIL COUNT 0 /CUMM (0.0-0.7); ABSOLUTE GRANULOCYTE CT 5.8 /CUMM (1.4-6.5); ABSOLUTE LYMPH COUNT 0.5 /CUMM (1.2-3.4); ABSOLUTE MONOCYTE COUNT 0.3 /CUMM (0.10-0.60); BASOPHIL % 0.4 % (0.0-2.0); EOSINOPHIL % 0.6 % (0-5); GRANULOCYTE % 86.3 % (42.2-75.2); MEAN CORPUSCULAR HGB 28.2 PG (27.0-31.0); MEAN CORPUSCULAR HGB CONC 32.9 G/DL (33.0-37.0); MEAN CORPUSCULAR VOLUME 85.8 FL (81.0-99.0); MEAN PLATELET VOLUME 6.7 FL (7.4-10.4); PLATELET COUNT 616 /CUMM (130-400); RED BLOOD CELL CT 3.61 /CUMM (4.20-5.40); WHITE BLOOD CELL COUNT 6.7 /CUMM (4.8-10.8)
[2017-11-15 22:32] VITALS: BP 130/25
[2017-11-16 00:19] VITALS: BP 152/76
[2017-11-16 06:07] VITALS: BP 150/100
--- NOTE | 2017-11-16 07:20 | PN- Housestaff ---
See Addendum Subjective Follow-up For: HCAP 2/2 MRSA/Morexella PNA, resolved Sepsis (hypothermia, leukopenia/bandemia, source of infection), resolved Thrombocytopenia 2/2 infection Acute hypoxic respiratory failure, resolving Asymptomatic bacteruria/UTI, resolved Altered mental status secondary to metabolic encephalopathy, improving HFpEF Bipolar disorder/schizoaffective disorder History of CVA Subjective: patient has no new complaints, cough is the same, requiring frequent suctioning, now on 2L supplemental oxygen, required IV dextrose yesterday for hypoglycemia, poor po intake s/p modified barium yesterday, with puree/nectar diet currently afebrile overnight Review of Systems Constitutional: Reports: see HPI. Objective Last 24 Hrs of Vital Signs/I&O Vital Signs Date Time Temp Pulse Resp B/P B/P Pulse O2 O2 Flow FiO2 Mean Ox Delivery Rate 11/16 0607 97.4 85 20 150/100 100 Nasal 2.0L Cannula 11/16 0021 97.9 91 94 Nasal 2.0L Cannula 11/16 0019 103 152/76 11/16 0000 92 Nasal 2.0L Cannula 11/15 2232 99.7 90 18 130/25 90 Nasal 2.0L Cannula 11/15 2110 95 Nasal 2.0L Cannula 11/15 1446 95.9 82 18 106/58 92 Nasal 2.0L Cannula 11/15 1424 94 Nasal 2.0L Cannula Intake & Output 11/16 1600 11/16 0800 11/16 0000 Intake Total 140 20 Output Total Balance 140 20 Intake, IV 20 20 Intake, Oral 120 Number 1 Bowel Movements Physical Exam General Appearance: Alert, Cooperative, No Acute Distress Cardiovascular: Regular Rate, Normal S1, Normal S2, No Murmurs Lungs: RLL crackles, diffuse bilateral rhonchi, wet cough Abdomen: Normal Bowel Sounds, Soft, No Tenderness, No Masses Extremities: edematous extremities, 2+ Current Medications: Current Medications Sig/Courtney Start time Last Medication Dose Route Stop Time Status Admin Acetaminophen 1,000 MG Q6P PRN 11/03 1000 AC IV Albuterol Sulfate 3 ML Q4P PRN 11/11 1045 AC INH Aripiprazole 5 MG DAILY 11/14 0948 AC 11/16 PO 0858 Aspirin 81 MG DAILY 11/04 0900 AC 11/15 PO 0838 Benzocaine/Menthol 1 GABE Q2P PRN 11/13 2200 11/15 PO 0147 Benzonatate 100 MG TID PRN 11/15 1803 PO Benzonatate 100 MG TID 11/14 2100 FL 11/14 PO 2053 Dextrose 25 GM ONCE ONE 11/15 1700 DC 11/15 IV 11/15 1701 1650 Divalproex Sodium 250 MG DAILY 11/16 0900 AC 11/16 PO 0858 Divalproex Sodium 500 MG QPM 11/15 2130 11/15 PO 2346 Divalproex Sodium 250 MG 0800 11/15 0800 FL 11/15 PO 0838 Divalproex Sodium 500 MG AT BEDTIME 11/14 2100 FL 11/14 PO 205 Enoxaparin Sodium 40 MG DAILY 11/09 1100 11/16 SC 0859 Ferrous Sulfate 325 MG DAILY 11/15 0900 11/16 PO 0858 Furosemide 20 MG ONCE ONE 11/15 1700 DC 11/15 IV 11/15 1701 1756 Furosemide 20 MG DAILY 11/14 1017 11/16 PO 0857 Hydrocortisone 1 RON BID 11/11 1037 DC 11/15 EXT 11/16 0800 2108 Ipratropium [place] 2.5 ML TID 11/11 1400 AC 11/16 INH 0837 Nystatin 1 RON BID 11/15 2100 11/16 TOP 0859 Nystatin 1 RON TID PRN 11/09 0415 11/12 TOP 0921 Patient Medication 1 ED ONE ONE 11/15 1315 FL 11/15 Teaching ED 11/15 1316 1750 Polyethylene Glycol 17 GM DAILY PRN 11/03 1030 11/06 PO 0944 Rosuvastatin Calcium 5 MG AT BEDTIME 11/04 2100 11/15 PO 2105 Scopolamine HBr 1 PAT ONE ONE 11/15 1815 FL 11/15 TOP 11/15 1816 1845 Last 24 Hrs of Lab/Neo Results Last 24 Hrs of Labs/Mics: Laboratory Tests 11/15/17 1500: CBC w Diff MAN DIFF ORDERED, RBC 3.61 L, MCV 85.8, MCH 28.2, MCHC 32.9 L, RDW 18.0 H, MPV 6.7 L, Gran % 86.3 H, Lymphocytes % 7.7 L, Monocytes % 5.0, Eosinophils % 0.6, Basophils % 0.4, Absolute Granulocytes 5.8, Segmented Neutrophils 79 H, Band Neutrophils 9 H, Absolute Lymphocytes 0.5 L, Lymphocytes 5 L, Monocytes 5, Absolute Monocytes 0.3, Eosinophils 2, Absolute Eosinophils 0, Absolute Basophils 0, Platelet Estimate INCREASED2, Polychromasia 1+, Hypochromic-Microcytic 2+, Anisocytosis 2+, Stomatocytes RARE Assessment/Plan Assessment: 72 year old woman with past medical history significant for bipolar/ schizoaffective disorder, HFpEF, and "recurrent hypothermia" was sent in from [facility] for evaluation of shortness of breath with hypoxia. Patient presented with altered mental status, bandemia, hypothermia, hypotension, hypoxemia and multifocal airspace disease on Chest CT. ABG 7.4 149/100/41 on 6 L nasal cannula Altered mental status 2/2 metabolic encephalopathy: Likely secondary to infection, improving Valproic acid levels were therapeutic Bipolar disorder/schizoaffective disorder Resume 250mg depakote in the morning and 500mg po in the evening Resume abilify 5mg po daily Head CT 11/08 showed no acute process, mostly Chronic appearing lacunar infarct in left basal ganglia, right centrum semiovale, and left brachium pontis. Moderate diffuse brain parenchymal volume loss. Hypoglycemia: Yesterday blood sugar was 53 and treated with 25g dextrose IVP No history of diabetes, likely just from poor PO intake Will require frequent feedings and nursing care, suctions, aspiration precautions Accuchecks Q4H Sepsis (hypothermia, leukopenia/bandemia, hypotension, thrombocytopenia, hypoxia with multifocal airspace disease on CT) Acute hypoxic respiratory failure secondary to HCAP PNA MRSA/Morexella on sputum culture s/p 7 day course of antibiotics with ceftriaxone and vancomycin Currently normothermic Asymptomatic bacteruria-pyruia and nitrites TRC evaluation Continue nebulized albuterol Chest CT-Multifocal airspace disease, left lower lobe consolidation and volume loss Patient's most recent CBC, post transfusion to monitor H+H, demonstrated bandemia and thrombocytosis without leukocytosis, afebrile, will repeat CBC tomorrow morning HFpEF: Echo LVEF > 70% (05/2017), stage I diastolic dysfunction Received lasix in the ICU CXR showed stable cardiomegaly however no signs of pulm congestion Restart lasix 20mg daily, received 20mg IV lasix x 1 yesterday Patient is now requiring some supplemental oxygen at this time 2L History of CVA ASA/Statin Hematology Anemia-Transfused 2u pRBCs from admission CBC stable, guiaic negative, retics 2.42 haptoglobin pending, heparin ab negative Restart iron Thrombocytosis Repeat CBC Puree and nectar thick diet following modified barium with speech and swallow therapy yesterday DVT ppx-lovenox subcutaneous + ALPS DNR/DNI Daughter Gala Max (Cellphone:[phone], Work: ) Problem List: 1. Altered mental status 2. MRSA pneumonia 3. HCAP (healthcare-associated pneumonia) 4. Sepsis 5. Schizoaffective disorder Pain Ratin Pain Location: n/a Pain Goal: Pain 4 or less Pain Plan: prn Tomorrow's Labs & Rationales: cbc
[2017-11-16 14:00] VITALS: BP 118/54
[2017-11-16 21:50] VITALS: BP 126/68
[2017-11-17 06:57] VITALS: BP 124/64
[2017-11-17 07:47] LABS: ABSOLUTE BASOPHIL COUNT 0 /CUMM (0.0-0.2); ABSOLUTE EOSINOPHIL COUNT 0.1 /CUMM (0.0-0.7); ABSOLUTE GRANULOCYTE CT 4.1 /CUMM (1.4-6.5); ABSOLUTE LYMPH COUNT 1.5 /CUMM (1.2-3.4); ABSOLUTE MONOCYTE COUNT 0.6 /CUMM (0.10-0.60); BASOPHIL % 0.5 % (0.0-2.0); EOSINOPHIL % 1.2 % (0-5); GRANULOCYTE % 65.2 % (42.2-75.2); HEMATOCRIT 27.4 % (37-47); MEAN CORPUSCULAR HGB 28.1 PG (27.0-31.0); MEAN CORPUSCULAR HGB CONC 32.7 G/DL (33.0-37.0); MEAN CORPUSCULAR VOLUME 85.9 FL (81.0-99.0); MEAN PLATELET VOLUME 6.8 FL (7.4-10.4); PLATELET COUNT 572 /CUMM (130-400); RBC DISTRIBUTION WIDTH 19.2 % (11.5-14.5); RED BLOOD CELL CT 3.19 /CUMM (4.20-5.40); WHITE BLOOD CELL COUNT 6.3 /CUMM (4.8-10.8)
--- NOTE | 2017-11-17 08:09 | PN- Housestaff ---
See Addendum Subjective Follow-up For: Sepsis (hypothermia, leukopenia/bandemia, source of infection), resolved Pneumonia 2/2 MRSA/Morexella PNA, resolved Acute hypoxic respiratory failure, resolving Altered mental status secondary to metabolic encephalopathy with pneumonia, improved HFpEF Bipolar disorder/schizoaffective disorder Subjective: patient is doing well in terms of her eating, blood sugar was 55 this morning but quickly improved after eating breakfast, her cough also seems better although she still requires some supplemental oxygen, afebrile off antibiotics, previously completed a seven day course for pneumonia Review of Systems Constitutional: Reports: see HPI. Objective Last 24 Hrs of Vital Signs/I&O Vital Signs Date Time Temp Pulse Resp B/P B/P Pulse O2 O2 Flow FiO2 Mean Ox Delivery Rate 11/17 0755 95 Nasal 1.0L Cannula 11/17 0657 97.5 78 20 124/64 96 11/17 0000 96 Nasal 1.0L Cannula 11/16 2150 97.6 88 20 126/68 94 Nasal 1.0L Cannula 11/16 1815 96 Nasal 1.0L Cannula 11/16 1400 96.3 58 20 118/54 95 Nasal 1.0L Cannula Intake & Output 11/17 1600 11/17 0800 11/17 0000 Intake Total 240 240 Output Total 0 Balance 240 240 Intake, Oral 240 240 Number 0 Bowel Movements Output, Urine 0 Physical Exam General Appearance: Alert, Cooperative, No Acute Distress, on 1L supplemental oxygen via nasal cannula Cardiovascular: Regular Rate, Normal S1, Normal S2, No Murmurs Lungs: RLL rhonchi, diminished breath sounds from poor effort, ineffective cough , transmitted upper airway sounds Abdomen: Normal Bowel Sounds, Soft, No Tenderness, No Masses Extremities: No Clubbing, No Cyanosis, 2+ peripheral pitting edema Current Medications: Current Medications Sig/Courtney Start time Last Medication Dose Route Stop Time Status Admin Acetaminophen 1,000 MG Q6P PRN 11/03 1000 AC IV Albuterol Sulfate 3 ML Q4P PRN 11/11 1045 AC INH Aripiprazole 5 MG DAILY 11/14 0948 AC 11/17 PO 0846 Aspirin 81 MG DAILY 11/04 0900 AC 11/17 PO 0846 Benzocaine/Menthol 1 GABE Q2P PRN 11/13 2200 AC 11/15 PO 0147 Benzonatate 100 MG TID PRN 06/18 1803 AC PO Divalproex Sodium 250 MG DAILY 11/16 0900 AC 11/17 PO 0846 Divalproex Sodium 500 MG QPM 11/15 2130 AC 11/16 PO 2013 Enoxaparin Sodium 40 MG DAILY 11/09 1100 AC 11/17 SC 0846 Ferrous Sulfate 325 MG DAILY 11/15 0900 AC 11/17 PO 0846 Furosemide 20 MG DAILY 11/14 1017 DC 11/16 PO 0857 Ipratropium [place] 2.5 ML TID 11/11 1400 AC 11/17 INH 0753 Nystatin 1 RON BID 11/15 2100 AC 11/17 TOP 0857 Nystatin 1 RON TID PRN 11/09 0415 AC 11/12 TOP 0921 Polyethylene Glycol 17 GM DAILY PRN 11/03 1030 AC 11/06 PO 0944 Rosuvastatin Calcium 5 MG AT BEDTIME 11/04 2100 AC 11/16 PO 2014 Last 24 Hrs of Lab/Neo Results Last 24 Hrs of Labs/Mics: Laboratory Tests 11/17/17 0722: CBC w Diff NO MAN DIFF REQ, RBC 3.19 L, MCV 85.9, MCH 28.1, MCHC 32.7 L, RDW 19.2 H, MPV 6.8 L, Gran % 65.2, Lymphocytes % 23.5, Monocytes % 9.6 H, Eosinophils % 1.2, Basophils % 0.5, Absolute Granulocytes 4.1, Absolute Lymphocytes 1.5, Absolute Monocytes 0.6, Absolute Eosinophils 0.1, Absolute Basophils 0 Assessment/Plan Assessment: 72 year old woman with past medical history significant for bipolar/ schizoaffective disorder, HFpEF, and "recurrent hypothermia" was sent in from [facility] for evaluation of shortness of breath with hypoxia. Patient presented with altered mental status, bandemia, hypothermia, hypotension, hypoxemia and multifocal airspace disease on Chest CT, s/p treatment with a seven day course for MRSA and Moraxella pneumonia, now clinically stable on general medicine with active issues of hypoglycemia and aspiration, currently on nectar/puree diet after modified barium swallow evaluation. Sepsis with acute hypoxemic respiatory failure secondary to health care associated PNA Hypothermia, leukopenia/bandemia, hypotension, thrombocytopenia, hypoxia with multifocal airspace disease on CT Acute hypoxic respiratory failure secondary to HCAP PNA MRSA/Morexella on sputum culture s/p 7 day course of antibiotics with ceftriaxone and vancomycin Currently normothermic, no leukocytosis, bandemia resolved on today's CBC Continue nebulized albuterol Follow up chest x-ray Metabolic encephalopathy secondary to pneumonia, improved after antibiotic treatment Psychiatric medications, depakote and abilify resumed Hypoglycemia: No history of diabetes or hypoglycemic medications, likely just from poor PO intake Will require frequent feedings, night time snack, and nursing care for feeding and suctioning Aspiration precautions and head of bead elevation at all times HFpEF: Echo LVEF > 70% (05/2017), stage I diastolic dysfunction Received IV lasix in ICU CXR showed stable cardiomegaly however no signs of pulm congestion Restart lasix 20mg daily, received 20mg IV lasix x 1 yesterday Patient is now requiring some supplemental oxygen at this time 2L History of CVA ASA/Statin Hematology Anemia-Transfused 2u pRBCs from admission CBC stable, guiaic negative Continue iron Puree and nectar thick diet following modified barium with speech and swallow therapy yesterday DVT ppx-lovenox subcutaneous + ALPS DNR/DNI Daughter Gala Max (Cellphone:[phone], Work: ) Plan to discharge to [facility] today. Patient should continue to have swallow assessments, aspiration precautions, feeding assistance, suctioning, glucose monitor and oxygen weaning performed after discharge Problem List: 1. Altered mental status 2. Schizoaffective disorder 3. Pneumonia 4. HCAP (healthcare-associated pneumonia) 5. MRSA pneumonia 6. Sepsis Pain Ratin Pain Location: n/a Pain Goal: Pain 4 or less Pain Plan: prn Tomorrow's Labs & Rationales: none, planned discharge
[2017-11-17] MEDS ORDERED: DEPAKOTE SPRIN125 M1 PO ×2 (10:44)
--- NOTE | 2017-11-17 10:46 | Patient Discharge Instructions ---
Discharge Instructions General Discharge Information You were seen/treated for: sepsis, pneumonia, respiratory failure and aspiration Special Instructions: Please follow up with your primary care physician. You need to monitor your blood sugars three times a day, including first thing in the morning. You need to keep the head of your bed elevated to prevent aspiration. You should be re- evaluated by a speech and swallow therapist. You should have a bedtime snack. Your diet has been changed to nectar thick liquids and pureed diet to protection from aspiration. Acute Coronary Syndrome Inclusion Criteria At DC or during hospital stay patient has or had the following: ACS DIAGNOSIS No Discharge Core Measures Meds if any: Prescribed or Continued at Discharge Meds if any: NOT Prescribed or Continued at Discharge Congestive Heart Failure Inclusion Criteria At DC or during hospital stay patient has or had the following: CHF DIAGNOSIS No Discharge Core Measures Meds if any: Prescribed or Continued at Discharge Meds if any: NOT Prescribed or Continued at Discharge Cerebrovascular accident Inclusion Criteria At DC or during hospital stay patient has or had the following: CVA/TIA Diagnosis No Discharge Core Measures Meds if any: Prescribed or Continued at Discharge Meds if any: NOT Prescribed or Continued at Discharge Venous thromboembolism Inclusion Criteria VTE Diagnosis No VTE Type NONE VTE Confirmed by (Test) NONE Discharge Core Measures - Per Current guidelines, there needs to be overlap - treatment for the first 5 days of Warfarin therapy. - If discharged on Warfarin prior to 5 days of - overlap therapy, the patient will need to be - assessed for post discharge needs including - *Post discharge parental anticoagulation - *Warfarin and/or parental anticoagulation education - *Follow up date to check INR post discharge At least 5 days overlap therapy as Inpatient No Meds if any: Prescribed or Continued at Discharge Note: Overlap Therapy is Warfarin and Anticoagulant Meds if any: NOT Prescribed or Continued at Discharge
[2017-11-17 13:25] VITALS: BP 124/64
--- NOTE | 2017-11-17 13:46 | Discharge Summary ---
Visit Information Visit Dates Admission Date: 11/03/17 Discharge Date: 11/17/2017 Hospital Course Course Attending Physician: Taye Tavera MD Primary Care Physician: Rebel GARCIA,Wilfredo De Santiago Hospital Course: This is a 72-year-old woman with multiple medical problems significant for bipolar disorder, seasonal allergies, heart failure with preserved ejection fraction and recurrent hypothermia presented to [place] emergency department from [facility] for evaluation of shortness of breath and hypoxia. Upon ER admission she was somnolent, lethargic to give a complete history therefore most of the information was collected from the [address] 10 which revealed that the patient at baseline,she was alert oriented and conversational which was later confirmed with her daughter after the initial critical care admission. On admission she was found to be hypoxic, she was found to have temperature of 94.0, pulse of 74, respiration rate of 32, blood pressure 123/58, she was initially placed on nonrebreather. Her initial CBCs revealed a white count of 1.8, H/H of 9.6/28.6, platelet of 163. Sodium was 139, potassium of 4.5, BUN/creatinine of 14/0.7, bicarb of 35, chloride of 96. Her glucose was found to be low at 60, calcium was 9.4, liver function tests were within normal limits, troponin I was less than 0.01, proBNP was found to be 116, total protein and albumin were low at 5.[address] chest showed multifocal airspace disease with left lower lobe consolidation and volume loss along with 4.8 cm partially calcified thyroid nodule. At the emergency department she received a dose of clindamycin, vancomycin and ciprofloxacin along with IV fluids and dextrose pushes for hypoglycemia She was admitted to critical care unit for the treatment of following problem. 1. Sepsis secondary to hospital-acquired pneumonia She was found to have hypothermia with leukopenia/bandemia, possible source of infection from pneumonia. She was admitted to ICU due to hypothermia. As she met the sepsis criteria, she was generously hydrated in the initial 24 hours with IV normal saline, however as her blood pressure stayed borderline, a femoral line worse secured for better blood pressure management. She was started on vancomycin 1 g IV every 24 hours and ceftazidime 2 g IV every 12 hours for treatment of hospital-acquired pneumonia for a total of 7 days. As she met the sepsis criteria, she was generously hydrated in the initial 24 hours with IV normal saline, she received IV antibiotics as above, urine and blood cultures along with sputum cultures were sent.She had a PICC line placement for antibiotics as she was a hard stick due to bilateral upper extremity edema. Respiratory cultures grew Moraxella, MRSA that was resistant to cefazolin, Augmentin, Unasyn, azithromycin, clindamycin, erythromycin and sensitive to vancomycin. Surveillance culture also grew MRSA. 2. Acute hypoxic respiratory failure . Shortly on presentation she was found to be hypoxic, initially she was put on nonrebreather and then gradually transitioned to supplemental oxygen with a target oxygen saturation more than 92 %. She was also continued on TRC nebulization treatment along with chest physical therapy, due to sulfa allergy she was not a candidate for Mucomyst respiratory therapy however she received bedside oral suctioning as needed throughout the hospital course. 3 acute blood loss anemia with thrombocytopenia. On admission patient's hemoglobin was 9.2 however during ICU course she dropped down to 7.2 without any active signs of bleeding. She received 1 unit of packed red blood cells on 11 05. She was also found to be thrombocytopenic with platelet of 80 which eventually gradually up trended from AT to [phone], there was a suspicion of heparin-induced thrombocytopenia however hit antibodies were negative therefore eventually she was restarted on Lovenox 40 mg subcutaneous for DVT prophylaxis. 4 Subclinical hypothyroidism. Patient was fine to be mildly hypothyroid with 0.267, however normal T4 of 1.64. This was thought to be due to acute illness and repeat TSH was recommended upon discharge. 5 risk of aspiration. Patient was found to be aspirating and the cough was thought to be secondary to aspiration. She was initially kept nothing by mouth later on she was started on tube feeding with NG tube and Jevity 1.2. Eventually upon downgrading from ICU to general medicine floor, she underwent a swallow eval and modified barium swallow it well and eventually discharged on pured diet and nectar thin liquid. This was discussed with her daughter that she will be needed to be on the bowel diet in order to prevent aspiration. Aspiration precautions were maintained throughout the hospital stay. 6. Heart failure with preserved ejection fraction. Upon admission, patient had a history of heart failure with preserved ejection fraction with stage I diastolic dysfunction. She was edematous at baseline and based on intake and output during the ICU, she was found to be retaining fluid. She received IV Lasix 20 mg 2 during the ICU stay secondary to intermittent volume overload, however this resolved and a few episodes of desaturation were thought to be due to sputum clots. Her latest chest x-ray showed stable cardiomegaly without any pulmonary congestion. She continued to have repeat chest x-ray with did not change much. There was no repeat echocardiogram at this admission. Discharged on Lasix 20 mg daily. 7. Bipolar/schizoaffective disorder. On her outpatient medications were continued during hospital stay. 8 Altered mental status/lethargy/Metabolic encephalopathy Initially on presentation patient was not alert and oriented, during the ICU states she remained lethargic, was able to respond to command and had some eye contact and intermittent mumbling and clear speech. Her lethargy improved upon treatment and she was more oriented during her general medicine floor stay. Her head CT on 611 did not show any acute intracranial process, some old lacunar infarcts in left basal ganglia, right centrum semiovale and left brachium pontis. She was on Depakote at home, during the ICU stay p.o. Depakote was changed to IV Depakote, which was eventually changed back to p.o. upon discharge. Neurology was consulted however no active tar heat exchanger cleaner was done. Ammonia levels were also measured which were below 9. 9.Hypoglycemia There was no history of diabetes or hypoglycemic medications, likely just from poor PO intake She will require frequent feedings, night time snack, and nursing care for feeding and suctioning.Aspiration precautions and head of bead elevation at all times Patient should continue to have swallow assessment, aspiration precautions, feeding cataloging assistant, suctioning, glucose monitor and oxygen weaning after discharge at [facility] Allergies: Coded Allergies: Sulfa (Sulfonamide Antibiotics) (Intermediate, FACIAL EDEMA 10/16/16) azithromycin (Intermediate, THROAT CLOSURE 10/16/16) lactose (Mild, unknown 06/07/17) atorvastatin (UNKNOWN 10/16/16) cephalexin (From KEFLEX) (UNKNOWN 05/31/17) ciprofloxacin (ANXIETY 10/16/16) Significant Procedures: SERVICE DATE: 11/15/17- EXAM TYPE: RAD - XRY-MODIFIED BARIUM SWALLOW Addendum: Of note, there was penetration of contrast noted with thin liquids administered with a spoon with no sensation. Addendum Signed by: Rita Newton MD 11/15/17 1250 EXAMINATION: XR MODIFIED BARIUM SWALLOW CLINICAL INFORMATION: Coughing on food. Presumptive diagnosis of aspiration. COMPARISON: None. TECHNIQUE: A modified barium swallow was performed with speech pathologist in attendance. Pur?e, honey thick, nectar thick, thin, bread, and cracker consistencies were given to the patient and the swallowing mechanism was observed fluoroscopically with several spot films taken using the last image hold feature. FLUOROSCOPY TIME: 2 minutes 23 seconds. FINDINGS: With all consistencies, the oral phase of swallowing is abnormal with difficulty in posterior bolus propagation and piecemeal deglutition seen. No laryngeal or nasopharyngeal aspiration seen. No significant pooling of contrast is noted in the valleculae or piriform sinuses. IMPRESSION: Disordered oral phase of swallowing. Otherwise unremarkable study. Speech pathologist assessment issued separately. SERVICE DATE: 11/15/17- EXAM TYPE: RAD - XRY-PORTABLE CHEST XRAY EXAMINATION: XR PORTABLE CHEST CLINICAL INFORMATION: Cough. Presumptive diagnosis of aspiration pneumonia. COMPARISON: Several prior chest x-rays, most recent of which is dated 11/09/2017. TECHNIQUE: Portable AP semierect view of the chest was obtained. FINDINGS: Evaluation is limited due to the patient's head projecting over the upper chest, obscuring assessment. Previously seen enteric tube has been removed. Left subclavian PICC line is in place with tip in the deep SVC, unchanged. The cardiomediastinal silhouette is enlarged, unchanged. Calcification, ectasia and tortuosity of the aorta is also again noted. Low lung volumes are seen with increased hazy opacities over the mid and lower lungs bilaterally, similar to prior study. Findings are consistent with bibasilar airspace disease, such as pneumonia and small left pleural effusion, unchanged compared to prior exam. Bony structures are unremarkable. IMPRESSION: 1. Left subclavian PICC line tip in the deep SVC, unchanged. 2. Cardiomegaly. 3. No change in dense left lower lobe consolidation and associated small effusion and no change in patchy right lower lobe consolidation. SERVICE DATE: 11/08/17- EXAM TYPE: CAT - CT HEAD WO IV CONTRAST EXAMINATION: CT HEAD WITHOUT CONTRAST CLINICAL INFORMATION: AMS from Hospital CAP w/ MRSA/Morxella, on ABx however not improving much on mental status. COMPARISON: Brain MRI 07/11/[address] 05/31/2017. TECHNIQUE: Contiguous axial imaging was performed from the skull base to vertex without intravenous administration of contrast. DLP: 725 mGy-cm. FINDINGS: There is no intracranial hemorrhage, large infarction, or mass lesion. There is no extra-axial collection. This chronic lacunar infarct within the left basal ganglia, right centrum semiovale, and left brachium pontis. There is mild scattered hypoattenuation in the bilateral cerebral white matter, which is nonspecific but likely reflects small vessel disease. There is moderate diffuse brain parenchymal volume loss. There is no evidence of hydrocephalus. The inferior left mastoid air cells are opacified. Visualized paranasal sinuses are clear. IMPRESSION: - No acute intracranial abnormality. - Chronic appearing lacunar infarct in left basal ganglia, right centrum semiovale, and left brachium pontis. - Moderate diffuse brain parenchymal volume loss. DICTATED BY: Evita Posadas MD DATE/TIME DICTATED:11/08/171552 HYDROMETER FINISHER:NAA DATE/TIME TRANSCRIBED:11/08/171552 SERVICE DATE: 11/05/17 EXAM TYPE: US - FLUORO GUID VENOUS ACCESS; INTERVENTIONAL SETUP; US-GUIDANCE VASCULAR ACCESS CLINICAL HISTORY: This patient is a 72 years old female with a history of pneumonia, who presents to Interventional Radiology for placement of a double lumen PICC for central venous access. PROCEDURES: 1. Real-time ultrasound-guided access into the left basilic vein after documentation of selected vessel patency, and permanent imaging storing in the patient records. 2. Placement of a PICC. PHYSICIANS: Dr. Tierra Rodriguez (attending). MEDICATIONS: Lidocaine 1%, 2 mL SQ. CONTRAST: None FLUOROSCOPY TIME: 0.3 minutes DAP: 1.4 uGym2 COMPLICATIONS: None ESTIMATED BLOOD LOSS: Scant SPECIMENS: None IMPLANT: 6 Romanian power PICC SITE MARKING: As part of the preprocedure verification policy, a site marking procedure was initiated. Due to the nature the procedure, the insertion site could not be predetermined thus invoking the policy of exemption to site laterality and marking. Insertion site marking was performed in the procedure room in conjunction with imaging confirmation. PROCEDURE NOTE: Informed consent was obtained from the patient prior to the procedure. During this process, the procedure and potential alternatives were explained along with the intended outcome and benefits. The risks of the procedure, including the possibility of an unsuccessful procedure, as well as the risk of not doing the procedure, were discussed. The patient was given the opportunity to ask questions regarding the procedure and appeared competent to make decisions. A signed consent form documenting this discussion was placed in the medical record. A time-out procedure was performed. The patient was placed supine on the fluoroscopy table. Prior to prepping the patient, a limited sonogram of the left arm was performed to choose appropriate access, and this arm was prepped and draped in the usual sterile fashion. All elements of maximal sterile barrier technique followed including use of cap, mask, sterile gown, sterile gloves, a sterile full body drape and hand hygiene. Also followed skin preparation with 2% chlorhexidine for cutaneous antisepsis, and sterile ultrasound preparation with sterile gel and probe cover when applicable. Venous access was achieved into the left basilic vein using ultrasound and fluoroscopic guidance. The 0.018 measuring wire from the PICC was advanced into the cavoatrial junction. The needle was removed and replaced with the peel away sheath. The intravascular length was measured and the catheter was trimmed to the correct length. The inner dilator was removed and the PICC was advanced over the wire into the cavoatrial junction. The peel away sheath and wire were removed. The catheter was tested successfully and secured to the skin with its tip in the cavoatrial junction. A spot image was taken. The patient tolerated the procedure well. FINDINGS: 1. Patent left basilic vein. 2. Successful placement of a 6-Fr double lumen PICC that measures 40 cm in length. IMPRESSION: Successful placement of a PICC. PLAN: 1. The patient was stable after the procedure and was transferred to the interventional recovery area. The patient will be transferred to the floor. 2. The catheter may be used immediately. SERVICE DATE: 11/03/17- EXAM TYPE: CAT - CT ABD & PELVIS W/O IV CONTRAS; CT CHEST WO IV CONTRAST EXAMINATION: CT CHEST, ABDOMEN AND PELVIS WITHOUT CONTRAST CLINICAL INFORMATION: Abdominal distention. Shortness of breath. Hypoxia. COMPARISON: 06/04/2017. Same day chest radiograph. TECHNIQUE: Contiguous axial thin section helical images of the chest, abdomen and pelvis were performed without oral or IV contrast. The data set was reformatted in the coronal and sagittal planes and reviewed on an independent workstation. DLP: 1290 mGy-cm. FINDINGS: There is a lower right thyroid exophytic partially calcified 4.8 cm nodule. This exerts mass effect upon the trachea displacing it to the left. There is dependent soft tissue attenuation within the lower trachea proximal to the laura. This could correspond to fluid or aspirated food material. The heart is of normal size. There is no pericardial effusion. There is neither mediastinal, hilar nor axillary lymphadenopathy. There are no chest wall masses. Rib of lung windows demonstrates no pneumothoraces. There is a small left pleural effusion. There is a left lower lobe consolidation with volume loss. There is patchy groundglass opacification throughout the right lower lobe. Mild groundglass opacification is present within the right upper lobe. There is a consolidation within the lateral segment right middle lobe. There are no pulmonary parenchymal nodules. The liver is of normal size and attenuation without focal lesions nor intrahepatic biliary ductal dilation. The patient is status post cholecystectomy. Surgical clips are present. The spleen, pancreas, adrenal glands are unremarkable. Both kidneys are of normal size and attenuation without hydronephrosis or nephrolithiasis. There is no abdominal free fluid. There is neither mesenteric nor retroperitoneal lymphadenopathy. There is a large fat-containing umbilical hernia. Normal unopacified loops of small and large bowel are identified. A normal appendix is identified. There is no pelvic free fluid. There is a macrolobulated uterus, likely insurance claim representative of fibroids. The urinary bladder is unremarkable. There is neither pelvic nor inguinal lymphadenopathy. Bone windows: Neither sclerotic nor lytic bone lesions are identified. IMPRESSION: Multifocal airspace disease with left lower lobe consolidation and volume loss. The appearance is suspicious for pneumonia. Recommendation is for a followup chest series to be obtained following treatment and/or resolution of symptoms to assure resolution of this appearance. 4.8 cm partially calcified right thyroid nodule. Small amount of fluid or soft tissue attenuation dependently within the distal trachea. This is nonspecific, though could correspond to aspirated fluid. No evidence for acute abdominal or pelvic inflammatory or infectious processes. Large fat-containing umbilical hernia. DICTATED BY: Michael Ruth MD DATE/TIME DICTATED:11/03/171128 HYDROMETER FINISHER:NAA SERVICE DATE: 11/05/17 EXAM TYPE: US - US-DUPLEX VENOUS EXTREM UNI EXAMINATION: LEFT UPPER EXTREMITY VENOUS ULTRASOUND CLINICAL INFORMATION: Left arm swelling and discoloration COMPARISON: None. TECHNIQUE: Doppler spectral analysis and color flow Doppler imaging was performed of the left upper extremity. Compression and augmentation maneuvers were performed. FINDINGS: The left internal jugular vein, subclavian vein, axillary vein, brachial vein, basilic vein, cephalic vein, and visualized forearm veins were well-identified and normal. They demonstrate normal compressibility and color fill-in. IMPRESSION: No evidence for left upper extremity deep vein thrombosis. Disposition Summary Disposition Principal Diagnosis: Sepsis (hypothermia, leukopenia/bandemia, source of infection) Pneumonia 2/2 MRSA/Morexella PNA Acute hypoxic respiratory failure Altered mental status secondary to metabolic encephalopathy with pneumonia, improved HFpEF Bipolar disorder/schizoaffective disorder Additional Diagnosis: subliclinical hypothyroidism Bipolar Schizoaffective Discharge Disposition: SNF Discharge Instructions General Discharge Information Code Status: Do Not Resucitate/Intubat Patient's Diet: puree and nectar thick Patient's Activity: As tolerated Follow-Up Instructions/Appts: Please follow up with your primary care physician. You need to monitor your blood sugars three times a day, including first thing in the morning. You need to keep the head of your bed elevated to prevent aspiration. You should be re- evaluated by a speech and swallow therapist. You should have a bedtime snack. Your diet has been changed to nectar thick liquids and pureed diet to protection from aspiration. Medications at Discharge Discharge Medications: Stop taking the following medications: Divalproex Sodium (Divalproex Sodium) 500 MG TABLET.DR ORAL Every night Qty = 180 Divalproex Sodium (Divalproex Sodium) 250 MG TABLET.DR ORAL Every Morning Qty = 30 Continue taking these medications: Potassium Chloride (Potassium Chloride) 20 MEQ TAB.ER.PRT 1 Tablet ORAL DAILY Comments: NOT GIVEN THIS ADMISSION Aspirin (Aspirin*) 81 MG TAB.CHEW 1 Tablet ORAL DAILY Comments: Last Taken:11/17/17 Time: 8:46A.M Furosemide (Lasix) 40 MG TABLET 0.5 Tablet ORAL Every Morning Comments: Last Taken:11/16/17 Time:8:57A.M Aripiprazole (Abilify) 2 MG TABLET 7 Milligram ORAL DAILY Comments: Last Taken: 11/17/17 Time:8:45A.M Rosuvastatin Calcium (Crestor) 5 MG TABLET 5 Milligram ORAL TAKE AT BEDTIME Qty = 90 Comments: Last Taken:11/16/17 Time:8:14P.M Montelukast Sodium (Montelukast Sodium) 10 MG TABLET 10 Milligram ORAL DAILY Qty = 30 Comments: NOT GIVEN THIS ADMISSION Polyethylene Glycol 3350 (Miralax) 17 GRAM/DOSE POWDER 1 Dose ORAL DAILY as needed for CONSTIPATION Qty = 1 Comments: Last Taken:11/06/17 Time:9:44A.M Ferrous Sulfate (Ferrous Sulfate) 325 MG (65 MG IRON) TABLET 1 Tablet ORAL Every night Comments: Last Taken:11/17/17 Time:8:46A.M Biotin (Biotin) 5 MG CAPSULE 1 Capsule ORAL Every night Comments: NOT GIVEN IN HOSPITAL Acetaminophen (Pain Relief) 650 MG TABLET.ER 1 Tablet ORAL DAILY Comments: NOT GIVEN THIS ADMISSION Start taking the following new medications: Divalproex Sodium (Depakote Sprinkle) 125 MG CAP.SPRINK 500 Milligram ORAL Every night Qty = 30 No Refills Comments: Last Taken:11/16/17 Time:8:14P.M Divalproex Sodium (Depakote Sprinkle) 125 MG CAP.SPRINK 250 Milligram ORAL DAILY Qty = 30 No Refills Comments: Last Taken:11/17/17 Time:8:46A.M Copies To: Tawanna GARCIA,Jf Ni; Octaviano GARCIA,Abraham Nichols; Rebel GARCIA,Wilfredo De Santiago Attending MD Review Statement Documenting Attending: Taye Tavera MD
== END 2017-11-17 14:41 | DRG 871 ==
LOC: ERH 02:55 → ERHI 06:11 → CRI 06:11 → ERHI 10:17 → EDBEDREQ 10:19 → ENRESERV 10:21 → ERHI 10:23 → ENTRNSPT 11:08 → EDTRNSPTSTS 11:22 → EDTRNSPT 11:22 → CMPTRNSPT 11:40 → CRI 12:20 → ENTRNSPT 11-13 17:48 → 2NB 11-13 18:08 → CMPTRNSPT 11-14 07:31 → 2NB 11-16 11:49 → ENPENDDIS 11-17 12:13 → 2NB 11-17 14:41
PROVIDERS: Internal Medicine Endocrinology, Diabetes & Metabolism; Internal Medicine Interventional Cardiology; Internal Medicine Pulmonary Disease; Pediatrics; Preventive Medicine Public Health & General Preventive Medicine; Radiology Vascular & Interventional Radiology; Student in an Organized Health Care Education/Training Program
PROC: 30233N1 Transfusion of Nonautologous Red Blood Cells into Peripheral Vein, Percutaneous Approach (ICD-10-PCS; principal; 2017-11-03)
PROC: 02HV33Z Insertion of Infusion Device into Superior Vena Cava, Percutaneous Approach (ICD-10-PCS; 2017-11-03)
DX: A41.9 Sepsis, unspecified organism (principal); J96.01 Acute respiratory failure with hypoxia; G92 Toxic encephalopathy; J15.8 Pneumonia due to other specified bacteria; J15.212 Pneumonia due to Methicillin resistant Staphylococcus aureus; J69.0 Pneumonitis due to inhalation of food and vomit; N39.0 Urinary tract infection, site not specified; L97.828 Non-pressure chronic ulcer of other part of left lower leg with other specified severity; I50.32 Chronic diastolic (congestive) heart failure; D62 Acute posthemorrhagic anemia; D72.819 Decreased white blood cell count, unspecified; R68.0 Hypothermia, not associated with low environmental temperature; E16.2 Hypoglycemia, unspecified; F31.9 Bipolar disorder, unspecified; F20.9 Schizophrenia, unspecified; Z85.3 Personal history of malignant neoplasm of breast; Z86.73 Personal history of transient ischemic attack (TIA), and cerebral infarction without residual deficits; E04.9 Nontoxic goiter, unspecified; R65.20 Severe sepsis without septic shock; E87.6 Hypokalemia; Z88.1 Allergy status to other antibiotic agents; Z88.2 Allergy status to sulfonamides; Z88.8 Allergy status to other drugs, medicaments and biological substances; Z90.49 Acquired absence of other specified parts of digestive tract; Z66 Do not resuscitate
CPT/HCPCS: 2NBP; 83519; 87184; CCU; 36415; 36592; 71045; 74176; 74230; 77001; 81001; 82436; 83010; 83525; 86902; 86920; 86922; 87040; 87070; 87086; 87449; 87450; 93005; 93010; 96374; 96375; C1769; J0131; J0696; J0713; J0744; J1642; J1644; J1650; J1940; J2001; J2997; J3370; J3490; J7040; J7042; J7060; P9016

== ENCOUNTER 2017-12-22 21:56 | Inpatient (IN) | payer OTHER, MEDICARE ==
[~2017-12-22] VITALS: Ht 149.9 cm; Wt 93.7 kg
[~2017-12-22 21:56] MED LIST changes: +BIOTIN5 M1 PO; +DEPAKOTE SPRIN125 M1 PO; +FERROUS SULFAT325 M3 PO; +PAIN RELIEF650 MG PO
[2017-12-22 22:36] LABS: ABSOLUTE BASOPHIL COUNT 0 /CUMM (0.0-0.2); ABSOLUTE EOSINOPHIL COUNT 0 /CUMM (0.0-0.7); ABSOLUTE GRANULOCYTE CT 2.4 /CUMM (1.4-6.5); ABSOLUTE LYMPH COUNT 0.6 /CUMM (1.2-3.4); ABSOLUTE MONOCYTE COUNT 0 /CUMM (0.10-0.60); BASOPHIL % 0.2 % (0.0-2.0); EOSINOPHIL % 1.4 % (0-5); GRANULOCYTE % 78.7 % (42.2-75.2); HEMATOCRIT 28.9 % (37-47); MEAN CORPUSCULAR HGB 28.2 PG (27.0-31.0); MEAN CORPUSCULAR HGB CONC 33.5 G/DL (33.0-37.0); MEAN CORPUSCULAR VOLUME 84.4 FL (81.0-99.0); MEAN PLATELET VOLUME 8.1 FL (7.4-10.4); PLATELET COUNT 87 /CUMM (130-400); RBC DISTRIBUTION WIDTH 20.2 % (11.5-14.5); RED BLOOD CELL CT 3.42 /CUMM (4.20-5.40)
--- NOTE | 2017-12-22 22:43 | ED DYSPNEA/ASTHMA COMPLAINT ---
History of Present Illness General Chief Complaint: Dyspnea (COPD, CHF, Other) Stated Complaint: FROM SNF, ACUTE SOB Source: old records, EMS, W10 Exam Limitations: clinical condition Vital Signs & Intake/Output Vital Signs & Intake/Output Vital Signs Date Time Temp Pulse Resp B/P B/P Pulse O2 O2 Flow FiO2 Mean Ox Delivery Rate 12/23 0615 93 BIPAP 100% 12/23 0601 95.0 82 20 93 BIPAP 100% 12/23 0500 93.0 81 25 94/0 92 BIPAP 100% 12/23 0402 93.4 80 160/0 12/23 0400 93 BIPAP 100% 12/23 0344 71 24 170/115 96 BIPAP 12/23 0335 59 12/23 0325 92.9 74 22 187/95 12/23 0237 68/0 12/23 0231 66/0 12/23 0227 66/0 12/23 0220 70 60/0 92 BIPAP 12/23 0215 60/0 12/23 0205 58/0 12/23 0202 59 55/28 12/23 0201 56 52/28 12/23 0146 55 91 12/23 0144 57 88 12/23 0133 91.9 54 20 38/0 89 BIPAP 12/23 0025 57 98 12/23 0020 53 100 12/23 0001 91.7 54 20 68/0 95 BIPAP 12/22 2334 58/0 12/22 2258 91.3 63 66/0 95 BIPAP 12/22 2234 66/0 12/22 2231 72 93 12/22 2230 BIPAP 12/22 2209 93 30 70/0 96 BIPAP ED Intake and Output 12/23 0000 12/22 1200 Intake Total Output Total Balance Patient 174 lb Weight Weight Polina Lift Measurement Method Allergies Coded Allergies: Sulfa (Sulfonamide Antibiotics) (Intermediate, FACIAL EDEMA 10/16/16) azithromycin (Intermediate, THROAT CLOSURE 10/16/16) lactose (Mild, unknown 06/07/17) atorvastatin (UNKNOWN 10/16/16) cephalexin (From KEFLEX) (UNKNOWN 05/31/17) ciprofloxacin (ANXIETY 10/16/16) Reconcile Medications Acetaminophen (Pain Relief) 650 MG TABLET.ER 1 TAB PO DAILY PAIN (Reported) Aripiprazole (Abilify) 2 MG TABLET 7 MG PO DAILY MENTAL HEALTH (Reported) Aspirin (Aspirin*) 81 MG TAB.CHEW 1 TAB PO DAILY HEART HEALTH (Reported) Biotin 5 MG CAPSULE 1 CAP PO QPM UNKNOWN (Reported) Divalproex Sodium (Depakote Sprinkle) 125 MG CAP.SPRINK 500 MG PO QPM schizoaffective Divalproex Sodium (Depakote Sprinkle) 125 MG CAP.SPRINK 250 MG PO DAILY SCHIZOAFFECTIVE Ferrous Sulfate 325 MG (65 MG IRON) TABLET 1 TAB PO QPM IRON, VITAMIN ( Reported) Furosemide (Lasix) 40 MG TABLET 0.5 TAB PO QAM CHF (Reported) Montelukast Sodium 10 MG TABLET 10 MG PO DAILY ALLERGIES (Reported) Polyethylene Glycol 3350 (Miralax) 17 GRAM/DOSE POWDER 1 DOSE PO DAILY PRN CONSTIPATION Potassium Chloride 20 MEQ TAB.ER.PRT 1 TAB PO DAILY SUPPLEMENT (Reported) Rosuvastatin Calcium (Crestor) 5 MG TABLET 5 MG PO QHS CHOLESTROL (Reported) Core Measure Meds Pre-Hospital aspirin Triage Note: PT BIBA FROM [facility] FOR "LOW O2 SATS". PER EMS PT WAS SATTING 80% ON NONREBREATHER WHEN THEY ARRIVED, AND THEY PLACED PT ON CPAP. PT ARRIVES ON CPAP WITH O2 SAT 74%. PT HAS DNR/DNI PAPERWORK. PT IS COLD TO TOUCH, LETHARGIC. BP 70/PALP WITH DOPPLER. TRIAGE NOTE WRITTEN BY EMILY RUIZstogie packer Nurses Notes Reviewed? yes Onset: Just prior to arrival Duration: constant, continues in ED, unknown duration Timing: recent history Severity: severe Activities at Onset: rest Prior Episodes/Possible Cause: frequent episodes Associated Symptoms: weakness LMP (ages 10-50): post menopausal : No Patient currently breastfeeds: No HPI: Prior to admission [facility] staff noted patient with increased work of breathing and hypoxia. There was no reported fever chills nausea vomiting diarrhea abdominal pain chest pain headache dysuria rash bleeding. ED Sepsis Exam Date of Focused Sepsis Exam: 12/23/17 Time of Focused Sepsis Exam: 235 Sepsis Cardiac Exam: Tachycardia Sepsis Resp Exam: Ronchi Sepsis Cap Refill Exam: >2 sec Sepsis Peripheral Pulse Exam: Weak Sepsis Peripheral Pulse Location: Radial Sepsis Skin Color Exam: Pale Skin Temp/Moisture Exam: Cool/Dry Past History Travel History Traveled to [place] past 21 day No Medical History Any Pertinent Medical History? 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 No Review of Systems Review of Systems Constitutional: Reports: see HPI, weakness. EENTM: Reports: no symptoms. Respiratory: Reports: see HPI, short of breath. Cardiovascular: Reports: see HPI, peripheral edema. GI: Reports: no symptoms. Genitourinary: Reports: no symptoms. Musculoskeletal: Reports: no symptoms. Skin: Reports: no symptoms. Neurological/Psychological: Reports: no symptoms. Hematologic/Endocrine: Reports: no symptoms. Immunologic/Allergic: Reports: no symptoms. All Other Systems: Reviewed and Negative Physical Exam Physical Exam General Appearance: moderate distress, severe distress, obese Head: atraumatic, normal appearance Eyes: Bilateral: normal appearance, PERRL, EOMI. Ears, Nose, Throat: normal pharynx, normal ENT inspection, hearing grossly normal Neck: normal inspection, supple, full range of motion, no midline tenderness Respiratory: chest non-tender, rhonchi, rales, respiratory distress Cardiovascular: regular rate/rhythm, normal peripheral pulses, norml femoral pulses equa Peripheral Pulses: 4+ carotid (R), 4+ carotid (L) Gastrointestinal: normal bowel sounds, soft, non-tender, no organomegaly Extremities: normal range of motion, pedal edema, anasarca Neurologic/Psych: awake, alert, crushed stone grader II-XII nml as tested Skin: cool to touch Lymphatic: no anterior cervical sofia Core Measures ACS in differential dx? No CVA/TIA Diagnosis No Sepsis Present: Yes Sepsis Focused Exam Completed? Yes Progress Differential Diagnosis: bronchitis, CHF, COPD, pneumonia Plan of Care: Orders Procedure Date/time Status Nothing by Mouth 12/23 B Active LACTIC ACID 12/23 1000 Active LACTIC ACID 12/23 0700 Active ARTERIAL BLOOD GAS (GEN) 12/23 0600 Active MAGNESIUM 12/23 0500 Complete CBC WITHOUT DIFFERENTIAL 12/23 0500 Complete BASIC ELECTROLYTES PLUS BUN&CR 12/23 0500 Complete TRC EVALUATION (GEN) 12/23 0351 Active OXYGEN SETUP (GEN) 12/23 0351 Active Pathway - chart 12/23 0351 Active CULTURE,URINE 12/23 0351 Active STREP PNEUMO URINARY ANTIGEN 12/23 0351 Active LEGIONELLA URINARY ANTIGEN 12/23 0351 Active LOWER RESPIRATORY CULTURE 12/23 0351 Active BIPAP 12/23 0148 Complete LACTIC ACID 12/23 0103 Complete BIPAP 12/23 0024 Complete Patient Data 12/23 0008 Active Admit to inpatient 12/23 0000 Active BIPAP 12/23 UNK Complete ARTERIAL BLOOD GAS (GEN) 12/23 UNK Active VTE Mechanical Prophylaxis 12/23 UNK Active Vital Signs 12/23 UNK Active Nursing Misc 12/23 UNK Active Intake & Output 12/23 UNK Active Cheek, Insertion/Removal/Asses 12/23 UNK Active Elevate 12/23 UNK Active Activity/Ambulation 12/23 UNK Active ARTERIAL BLOOD GAS (GEN) 12/22 2217 Complete BLOOD CULTURE 12/223 Active VALPROIC ACID 12/22 2203 Complete TROPONIN LEVEL 12/223 Complete MAGNESIUM 12/223 Complete LACTIC ACID 12/22 2203 Complete COMPREHENSIVE METABOLIC PANEL 12/22 2203 Complete CBC WITHOUT DIFFERENTIAL 12/223 Complete B-TYPE NATRIURETIC PEP (BNP) 12/22 2202 Complete EKG 12/223 Active BIPAP 12/22 UNK Complete Current Medications Sig/Courtney Start time Last Medication Dose Stop Time Status Admin Vancomycin HCl 1,000 MG 0100 12/24 0100 AC Sodium Chloride 250 ML (Normal Saline 0.9%) Ceftazidime 1,000 MG Q12 12/23 0900 AC (Fortaz) Albuterol Sulfate 3 ML Q6 12/23 0600 AC (Proventil) Ipratropium [place] 2.5 ML Q6 12/23 0600 AC (Atrovent) Methylprednisolone 40 MG Q8 12/23 0600 AC 12/23 (Solumedrol) 0614 Sodium Chloride 1,000 ML Q10H 12/23 0600 AC 12/23 (Normal Saline 0.9%) 0602 Acetaminophen 1,000 MG Q6P PRN 12/23 0345 AC (Ofirmev) Norepinephrine 4 MG Q24H 12/23 0200 AC 12/23 (Levophed Drip) 0202 Dextrose/Water 250 ML (Dextrose 5%) Laboratory Tests 12/23/17 0522: Anion Gap 9, Estimated GFR > 60, BUN/Creatinine Ratio 35.7 H, Magnesium 1.5 L, CBC w Diff MAN DIFF ORDERED, RBC 2.94 L, MCV 84.4, MCH 27.7, MCHC 32.8 L, RDW 19.8 H, MPV 8.0, Gran % 88.8 H, Lymphocytes % 9.0 L, Monocytes % 1.7, Eosinophils % 0.5, Basophils % 0, Absolute Granulocytes 2.0, Segmented Neutrophils 620 H, Band Neutrophils 20 H, Absolute Lymphocytes 0.2 L, Lymphocytes 11 L, Monocytes 5, Absolute Monocytes 0 L, Eosinophils 1, Absolute Eosinophils 0, Basophils 1, Absolute Basophils 0, Nucleated RBCs 9 H, Platelet Estimate DECREASED, Polychromasia 1+, Hypochromic-Microcytic 1+, Poikilocytosis 1+, Basophilic Stippling 1+, Ovalocytes 1+, Elliptocytes FEW, Fld Total RBCs Counted 100 12/23/17 0356: Lactic Acid 2.7 H 12/22/17 2315: pH 7.32 L, pCO2 67 *H, pO2 168 H, HCO3 34 H, ABG O2 Sat (Measured) 98.0, Carboxyhemoglobin 0.5 L, O2 Concentration % 100, Respiration Rate 22, O2 Delivery Method BIPAP, Vent Mode ST, Expiratory Pressure 6, Inspiratory Pressure 18, Phlebotomy Draw Site RIGHT RADIAL 12/22/17 2225: Anion Gap 9, Estimated GFR > 60, BUN/Creatinine Ratio 43.3 H, Glucose 152 H, Lactic Acid 2.0, Calcium 9.3, Magnesium 1.7, Total Bilirubin 0.2, AST 26, ALT 38 , Alkaline Phosphatase 100, Troponin I < 0.01, [id number] Pept 167 H, Total Protein 6.3, Albumin 3.0 L, Globulin 3.3, Albumin/Globulin Ratio 0.9 L, CBC w Diff NO MAN DIFF REQ, RBC 3.42 L, MCV 84.4, MCH 28.2, MCHC 33.5, RDW 20.2 H, MPV 8.1, Gran % 78.7 H, Lymphocytes % 19.6 L, Monocytes % 0.1 L, Eosinophils % 1.4, Basophils % 0.2, Absolute Granulocytes 2.4, Absolute Lymphocytes 0.6 L, Absolute Monocytes 0 L, Absolute Eosinophils 0, Absolute Basophils 0, Valproic Acid 35.2 L Microbiology 12/23 0551 URINE ROUT: Urine Culture - RECD 12/23 350 URINE ROUT: Legionella Antigen - COLB 12/23 035 URINE ROUT: Streptococcus pneumoniae Antigen (M - COLB 12/23 0351 LOWER RESP: Respiratory Culture - COLB 12/23 035 LOWER RESP: Gram Stain - COLB 12/23 0000 BLOOD: Blood Culture - RECD 12/22 2354 BLOOD: Blood Culture - RECD Diagnostic Imaging: Viewed by Me: Radiology Read. Discussed w/RAD: Radiology Read. CXR Impression: Nonspecific patchy multifocal airspace disease concerning for pneumonia. Initial ED EKG: normal axis, normal intervals, normal p-waves, normal QRS complex, normal sinus rhythm, nonspecific ST T wave chg Prior EKG: unchanged Rhythm Strip: normal sinus rhythm Departure Departure Disposition: STILL A PATIENT Condition: Stable Clinical Impression Primary Impression: Respiratory failure Secondary Impressions: Hypotension, Hypothermia, Pancytopenia, Pneumonia Referrals: Rebel GARCIA,Wilfredo De Santiago (PCP/Family) Departure Forms: Customer Survey General Discharge Information Admission Note Spoke With: Gris Hernandez MD Documentation of Exam: Documentation of any treatments & extenuating circumstances including Concerns Regarding Discharge (functional status, medication knowledge or non-compliance, living conditions, etc.) that warrant an admission rather than observation: IV antibiotics supplemental oxygen BiPAP cardiac monitoring IV fluids and warming blanket follow cultures medication adjustment continuing care discharge planning Critical Care Note Critical Care Note Critical Care Time: 30-74 min (45)
--- NOTE | 2017-12-22 23:29 | RADIOLOGY REPORT ---
EXAMINATION: CHEST 1 VIEW CLINICAL INFORMATION: Hypoxia. COMPARISON: November 15, 2017. TECHNIQUE: An AP view of the chest is provided. FINDINGS: The cardiac silhouette is stable. There is patchy multifocal airspace disease. There are neither pleural effusions nor pneumothoraces. The osseous structures are stable. IMPRESSION: Nonspecific patchy multifocal airspace disease concerning for pneumonia. Recommendation is for a followup chest series to be obtained following treatment and/or resolution of symptoms to assure resolution of this appearance.
--- NOTE | 2017-12-23 01:08 | History & Physical ---
Sushant Barnhart MD 12/23/17 0108: General Information and HPI History of Present Illness: 72-year-old woman with past medical history of bipolar disorder, HFpEF (LVEF >75 %), "recurrent hypothermia", Patient was previously admitted to [facility] from 11/03/17-11/17/17 for evaluation of shortness of hypoxia found to have sepsis and healthcare associated pneumonia with acute hypoxic respiratory failure complicated by acute blood loss anemia requiring intravenous antibiotics, blood transfusion, respiratory support and eventually diuresis. After her prolonged hospital stay she was discharged back to [facility]. Patient was found to be breathing heavy with "hypoxia" at her extended care facility for which she was transferred to the [place] ED. Per EMS patient was saturating 80% on nonrebreather when they arrived and was placed immediately on CPAP. In triage in the [place] ED patient was saturating 94% with blood pressure 70 over Doppler. Patient was somnolent and lethargic and unable to offer any subjective complaints or review of systems. Objective Vitals: Temp 91.3 rectally, HR 53-93, RR 30, BP 66-70/0, SPO2 93-100% on BiPAP / FiO2 100% Physical exam -General: Ill-appearing elderly woman in moderate respiratory distress -HEENT: NCAT, Bob, EOMI, anicteric sclera, moist mucous membranes, BiPAP mask in place -Neck: Supple, no obvious JVP but limited due to body habitus, trachea midline, moderate accessory respiratory muscle use -Cardio: Faint/distant heart sounds -Pulmonary: Scattered rhonchi with crackles -Abdomen: Palpable lower abdominal mass, mildly distended, nontender, no rigidity, bowel sounds intact -Neuro: Somnolent/lethargic, minimally arousable to tactile/noxious/verbal stimuli -Extremities: 4+ bilateral lower extremity pitting edema, normal pulses Labs/imaging/studies -CBC: WBC 3.0, hemoglobin 9.7, hematocrit 28.9, platelet 87 -BMP: Sodium 140, potassium 4.5, chloride 97, CO2 35, BUN 26, creatinine 0.6, anion gap 9, glucose 152 -LFT: Within normal limits -Miscellaneous: Magnesium 1.7, valproic acid level 35.2, troponin I <0.01, BNP 167 -ABG: pH 7.32, PCO2 67, PO2 168, HCO3 30 -Echocardiogram 06/08/17: LVEF >675% without regional wall motion abnormalities, mild/moderate aortic regurgitation, moderate tricuspid regurgitation -CXR: * Nonspecific patchy multifocal airspace disease concerning for pneumonia. * Recommendation is for a followup chest series to be obtained following treatment and/or resolution of symptoms to assure resolution of this appearance. Assessment 72-year-old woman with multiple medical problems significant for recurrent pneumonia, "recurrent hypothermia", bipolar disorder and heart failure with preserved ejection fraction seen for evaluation of shortness of breath and hypoxia. Clinically patient is somnolent and unable to offer subjective complaints. Vital signs are significant for rectal temperature 91.3 and blood pressure ranging 40s-70s systolic and hypoxia to 70s-80s requiring BiPAP. On exam patient is minimally arousable with normal cardiac examination, diffuse rhonchi and crackles on pulmonary examination, and is grossly edematous with lower extremity swelling. Significant labs include pancytopenia on CBC, normal serum chemistry, negative troponin, and lactic acid 2.0. Chest x-ray demonstrated nonspecific patchy multifocal airspace disease concerning for pneumonia. Clinically patient appears to have acute on chronic hypoxic/hypercarbic respiratory failure in the context of healthcare acquired pneumonia resulting in septic shock. Patient needs septic shock criteria with hypothermia, tachycardia , leukopenia and subsequent end organ damage with hypotension. Consent for a triple-lumen catheter was obtained from patient's daughter which was placed in the right groin uneventfully; patient was started on levophed for blood pressure support. Patient is being admitted to the intensive care unit for telemetry monitoring, vasopressor support, intravenous antibiotics, jeremy hugger/rewarming, and serial labs. Problem List -Acute on chronic hypoxic / hypercarbic respiratory failure -Acute on chronic heart failure with preserved ejection fraction -Healthcare acquired pneumonia -Septic shock -Hypothermia -Pancytopenia -Altered mental status, likely multifactorial: toxic metabolic encephalopathy + hypercarbia -HFpEF, LVEF > 75% -Bipolar disorder -History of Breast Cancer Plan -Admit to ICU -Telemetry monitoring -Total respiratory care -BiPAP: 18/6, FiO2 %100 -Elevate Head of Bed -Nebs with albuterol/ipratropium Q6H -Jeremy hugger -Cheek catheter, strict ins and outs -right groin triple lumen catheter -Vancomycin / Ceftazidime -Solumedrol 40 mg IV Q8H -Normal saline at 100 mL/h for elevated lactic acid -Consider diuresis when blood pressure stable -Levophed, titrate to SBP >90 or map >65 -Blood cultures 2, urine culture, sputum culture -Confirm patient's medications with Bishop Hunt and restart them -strep/Legionella urinary antigen -Recheck ABG in morning -Trend lactic acid until normal -Pain control with acetaminophen -N.p.o. -DVT prophylaxis with Alps, no pharmacologic due to thrombocytopenia -DNR/DNI -Contact daughter came at with update Allergies/Medications Allergies: Coded Allergies: Sulfa (Sulfonamide Antibiotics) (Intermediate, FACIAL EDEMA 10/16/16) azithromycin (Intermediate, THROAT CLOSURE 10/16/16) lactose (Mild, unknown 06/07/17) atorvastatin (UNKNOWN 10/16/16) cephalexin (From KEFLEX) (UNKNOWN 05/31/17) ciprofloxacin (ANXIETY 10/16/16) Home Med list Acetaminophen (Pain Relief) 650 MG TABLET.ER 1 TAB PO DAILY PAIN (Reported) Aripiprazole (Abilify) 2 MG TABLET 7 MG PO DAILY MENTAL HEALTH (Reported) Aspirin (Aspirin*) 81 MG TAB.CHEW 1 TAB PO DAILY HEART HEALTH (Reported) Biotin 5 MG CAPSULE 1 CAP PO QPM UNKNOWN (Reported) Divalproex Sodium (Depakote Sprinkle) 125 MG CAP.SPRINK 500 MG PO QPM schizoaffective Divalproex Sodium (Depakote Sprinkle) 125 MG CAP.SPRINK 250 MG PO DAILY SCHIZOAFFECTIVE Ferrous Sulfate 325 MG (65 MG IRON) TABLET 1 TAB PO QPM IRON, VITAMIN ( Reported) Furosemide (Lasix) 40 MG TABLET 0.5 TAB PO QAM CHF (Reported) Montelukast Sodium 10 MG TABLET 10 MG PO DAILY ALLERGIES (Reported) Polyethylene Glycol 3350 (Miralax) 17 GRAM/DOSE POWDER 1 DOSE PO DAILY PRN CONSTIPATION Potassium Chloride 20 MEQ TAB.ER.PRT 1 TAB PO DAILY SUPPLEMENT (Reported) Rosuvastatin Calcium (Crestor) 5 MG TABLET 5 MG PO QHS CHOLESTROL (Reported) Past History Travel History Traveled to [place] past 21 day No Medical History Neurological: CVA, dizziness, vertigo EENT: allergies, CHRONIC SINUS PROBLEMS Cardiovascular: stage I diastolic congestive heart failure Respiratory: NONE Gastrointestinal: lactose intolerance Hepatic: NONE Renal: urinary incontinence, CHRONIC UTI Musculoskeletal: falls, degenerative knee arthritis "NO ROTATOR CUFF" R ARM Psychiatric: bipolar disease, schizophrenia Endocrine: iodine radiotherapy for GOITER Blood Disorders: NONE 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 self Primary Language: Nigerian Living Will? no Functional Ability ADLs Needs Assist: dressing, eating, toileting, bathing. Ambulation: walker IADLs Needs Assist: shopping, housework, finances, food prep, telephone, transportation, medication admin. Review of Systems Review of Systems Constitutional: Reports: see HPI. Exam & Diagnostic Data Last 24 Hrs of Vital Signs/I&O Vital Signs Date Time Temp Pulse Resp B/P B/P Pulse O2 O2 Flow FiO2 Mean Ox Delivery Rate 12/23 0500 93.0 81 25 94/0 92 BIPAP 100% 12/23 0402 93.4 80 160/0 12/23 0400 93 BIPAP 100% 12/23 0344 71 24 170/115 96 BIPAP 12/23 0335 59 12/23 0325 92.9 74 22 187/95 12/23 0237 68/0 12/23 0231 66/0 12/23 0227 66/0 12/23 0220 70 60/0 92 BIPAP 12/23 0215 60/0 12/23 0205 58/0 12/23 0202 59 55/28 12/23 0201 56 52/28 12/23 0146 55 91 12/23 0144 57 88 12/23 0133 91.9 54 20 38/0 89 BIPAP 12/23 0025 57 98 12/23 0020 53 100 12/23 0001 91.7 54 20 68/0 95 BIPAP 12/22 2334 58/0 12/22 2258 91.3 63 66/0 95 BIPAP 12/22 2234 66/0 12/22 2231 72 93 12/22 2230 BIPAP 12/22 2209 93 30 70/0 96 BIPAP Intake & Output 12/23 0800 12/23 0000 07/25 1600 Intake Total Output Total Balance Patient 79.01 kg Weight Weight Polina Lift Measurement Method Assessment/Plan As Ranked By This Provider Problem List: 1. Respiratory failure 2. Hypotension 3. HCAP (healthcare-associated pneumonia) 4. Sepsis Core Measures/Misc (02/14) Acute Coronary Syndrome ACS Diagnosis: No Congestive Heart Failure Congestive Heart Failure Diagnosis Yes Last Known EF % 75 Cerebrovascular Accident CVA/TIA Diagnosis: No VTE (View Protocol) VTE Risk Factors Age>40 No Mechanical VTE Prophylaxis d/t N/A MechProphylax Ordered No VTE Pharm Prophylaxis d/t NA PharmProphylax ordered Sepsis (View protocol) Sepsis Present: Yes If YES complete Sepsis Event Note If YES complete Sepsis Event Note Gris Hernandez MD 12/23/17 0215: Core Measures/Misc (02/14) Sepsis (View protocol) If YES complete Sepsis Event Note If YES complete Sepsis Event Note Attending MD Review Statement Attending Statement Attending MD Statement: examined this patient, discuss w/resident/PA/SENIOR VISUAL DESIGNER, agreed w/resident/PA/SENIOR VISUAL DESIGNER, reviewed EMR data (avail) Attending Assessment/Plan: 72M PMH HFpEF, mild-moderate aortic stenosis, schizoaffective disoder, bipolar disoder, chronic UTI, breast cancer s/p right lumpectomy, and CVA sent from ECF for poor responsiveness and hypoxia to 80s, placed on CPAP by EMS. Upon arrival to ER was minimally responsive, hypoxic to 80, placed on BiPAP, temp 91 ( typically runs hypothermic at baseline 94-95). Per W10 no acute events, patient unable to provide history due to mental status. Documented DNR/DNI. Wheezing bilaterally, cold to touch, appears ill, normal cardiac exam, no lesions. Responds to painful stimuli. Labs significant for WBC 3.0, platelets 87, pCO@ 67, CXR shows multifocal pneumonia. BP dropped, now 55/palp despite fluid resuscitation. 1. Septic shock secondary to multilobar pneumonia 2. Acute on chronic hypoxemic and hypercarbic respiratory failure 3. Thrombocytopenia Plan - Admit to ICU - IV hydration - Will place central line and start peripheral and then central Levophed - Vancomycin and Ceftazidime - Solumedrol - Nebulizer treatments - Continue BiPAP - Warming blanket - Trend lactate and renal function - DNR/DNI - DVT PPx
--- NOTE | 2017-12-23 02:18 | Admission Certification ---
Admission Certification Certification Statement - As attending physician, I certify that at the time of - admission, based on clinical presentation, severity of - symptoms, need for further diagnostic testing and - therapeutic interventions, and risk of adverse outcomes - without in-hospital treatment, in my clinical assessment, - this patient requires an acute hospital stay for a minimum - of two nights or longer. I have also considered psychsocial - factors such as support system, advanced age, financial - issues, cognitive issues, and failed out-patient treatments, - past re-admission history, safety of patient, and lack of - compliance as applicable. Specific rationale supporting this admission is: Septic shock
--- NOTE | 2017-12-23 03:41 | Proc Note Internal Medicine ---
Medicine Procedure Procedure Date: 12/23/17 Medical Procedure(s): central venous cath place Pre-Operative Diagnosis: septic shock Estimated Blood Loss: less than 50ml Anesthesia: local monitored anesthesi Procedure Findings: Resident: Dr. Tao Green Attending: Dr. Cedillo A time-out was completed verifying correct patient, procedure, site, positioning , and special equipment if applicable. The patient was placed in a dependent position appropriate for central line placement based on the vein to be cannulated. The patients right groin was prepped and draped in sterile fashion. 1% Lidocaine was used to anesthetize the surrounding skin area. A triple lumen 9 -Haitian was introduced into the the common femoral vein using the Seldinger technique and under ultrasound guidance. The catheter was threaded smoothly over the guide wire and appropriate blood return was obtained. Each lumen of the catheter was evacuated of air and flushed with sterile saline. The catheter was then sutured in place to the skin and a sterile dressing applied. Perfusion to the extremity distal to the point of catheter insertion was checked and found to be adequate. Dr. Burger and Dr. Sheppard was present for the entire procedure. Estimated Blood Loss: <50cc The patient tolerated the procedure well and there were no complications.
[2017-12-23 05:26] LABS: ABSOLUTE BASOPHIL COUNT 0 /CUMM (0.0-0.2); ABSOLUTE EOSINOPHIL COUNT 0 /CUMM (0.0-0.7); ABSOLUTE LYMPH COUNT 0.2 /CUMM (1.2-3.4); ABSOLUTE MONOCYTE COUNT 0 /CUMM (0.10-0.60); BASOPHIL % 0 % (0.0-2.0); EOSINOPHIL % 0.5 % (0-5); GRANULOCYTE % 88.8 % (42.2-75.2); HEMATOCRIT 24.8 % (37-47); MEAN CORPUSCULAR HGB 27.7 PG (27.0-31.0); MEAN CORPUSCULAR HGB CONC 32.8 G/DL (33.0-37.0); MEAN CORPUSCULAR VOLUME 84.4 FL (81.0-99.0); PLATELET COUNT 71 /CUMM (130-400); RBC DISTRIBUTION WIDTH 19.8 % (11.5-14.5); RED BLOOD CELL CT 2.94 /CUMM (4.20-5.40)
--- NOTE | 2017-12-23 05:52 | Sepsis Event Note ---
Sepsis Event Note Severe Sepsis Severe Sepsis Present: Yes Severe Sepsis Actions Taken: Blood Cultures x2, Lactic Acid x2, IV Broad Spectrum Abx, IV Fluids- NS or LR Septic Shock Septic Shock Present: Yes Septic Shock Actions Taken: Blood Cultures x2, Lactic Acid, IV Broad Spectrum Abx, Focused Exam, IV Fluids NS/LR 30ml/kg, IV Vasopressor Started Event Note Event Note: Situation Septic shock secondary to pneumonia Background 72 year old woman with multiple medical problems seen for shortness of breath and hypoxia found to be hypothermic, hypotensive, leukopenic and febrile with chest x-ray demonstrated multilobar airspace disease. Patient met sepsis criteria with the features listed. Assessment / Recommendations Patient clinically appears to be hemodynamically unstable with features of septic shock secondary to pneumonia. Blood cultures x2, intravenous fluids, serial lactic acids, right groin triple lumen catheter, vasopressors, and broad spectrum antibiotics ordered. Sepsis Focused Exam Sepsis Cardiac Exam: Tachycardia Sepsis Resp Exam: Ronchi Sepsis Cap Refill Exam: >2 sec Sepsis Peripheral Pulse Exam: Weak Sepsis Peripheral Pulse Location: Faint carotid pulse Sepsis Skin Exam (color): Flushed, Mottled, Pale Skin Temp/Moisture Exam: Cool/Dry
[2017-12-23 06:07] LABS: WHITE BLOOD CELL COUNT 2.5 /CUMM (4.8-10.8)
[2017-12-23 09:00] VITALS: BP 84/00
--- NOTE | 2017-12-23 09:23 | PN- Resident CRCU ---
Jose Dwyer 12/23/17 0923: Subjective HPI/CRCU Issues: #Septic Shock, on vasopressor support #Scvko-sa-kipqboo hypercarbic respiratory failure #Healthcare-associated Pneumonia #Pancytopenia #Altered mental status #Bipolar disorder 24 Hour Events: Pt seen and examined this am. She is lethargic, responsive only to noxious stimuli, though at times with improved mental status. Looked visibly in distress on BiPAP on 100% O2. She is leukopenic, hypotensive, thrombocytopenic with lactic acidemia. Her temperature improved from 91.3 in the am, to 98.8 latest reading. Pt edematous with crackles B/L. She is currently on norepinephrine and vasopressin, with latest BP reading of 90/doppler. Objective Vital Signs & I&O Last 8 Hrs of Vitals and I&O: Laboratory Tests 12/23/17 1310: Sodium Pending, Potassium Pending, Chloride Pending, Carbon Dioxide Pending, Anion Gap Pending, BUN Pending, Creatinine Pending, Glucose Pending, Lactic Acid Pending, Calcium Pending, Phosphorus Pending, Magnesium Pending, Total Bilirubin Pending, AST Pending, ALT Pending, Troponin I Pending, Albumin Pending 12/23/17 1010: Lactic Acid 4.7 H 12/23/17 0955: Urine Color YEL, Urine Clarity HAZY H, Urine pH 6.0, Ur Specific [place] 1.020, Urine Protein 30 H, Urine Ketones 15 H, Urine Nitrite NEG, Urine Bilirubin NEG , Urine Urobilinogen 0.2, Ur Leukocyte Esterase NEG, Ur Microscopic SEDIMENT EXAMINED, Urine RBC 1-3, Urine WBC 1-3 H, Ur Epithelial Cells MANY H, Urine Bacteria MANY H, Urine Hemoglobin SMALL H, Urine Glucose NEG 12/23/17 0645: Lactic Acid 3.3 H 12/23/17 0522: Anion Gap 9, Estimated GFR > 60, BUN/Creatinine Ratio 35.7 H, Hemoglobin A1c 5.2, Magnesium 1.5 L, CBC w Diff MAN DIFF ORDERED, RBC 2.94 L, MCV 84.4, MCH 27.7, MCHC 32.8 L, RDW 19.8 H, MPV 8.0, Gran % 88.8 H, Lymphocytes % 9.0 L, Monocytes % 1.7, Eosinophils % 0.5, Basophils % 0, Absolute Granulocytes 2.0, Segmented Neutrophils 620 H, Band Neutrophils 20 H, Absolute Lymphocytes 0.2 L, Lymphocytes 11 L, Monocytes 5, Absolute Monocytes 0 L, Eosinophils 1, Absolute Eosinophils 0, Basophils 1, Absolute Basophils 0, Nucleated RBCs 9 H, Platelet Estimate DECREASED, Polychromasia 1+, Hypochromic-Microcytic 1+, Poikilocytosis 1+, Basophilic Stippling 1+, Ovalocytes 1+, Elliptocytes FEW, Fld Total RBCs Counted 100 12/23/17 0356: Lactic Acid 2.7 H 12/22/17 2315: pH 7.32 L, pCO2 67 *H, pO2 168 H, HCO3 34 H, ABG O2 Sat (Measured) 98.0, Carboxyhemoglobin 0.5 L, O2 Concentration % 100, Respiration Rate 22, O2 Delivery Method BIPAP, Vent Mode ST, Expiratory Pressure 6, Inspiratory Pressure 18, Phlebotomy Draw Site RIGHT RADIAL 12/22/175: Anion Gap 9, Estimated GFR > 60, BUN/Creatinine Ratio 43.3 H, Glucose 152 H, Lactic Acid 2.0, Calcium 9.3, Magnesium 1.7, Total Bilirubin 0.2, AST 26, ALT 38 , Alkaline Phosphatase 100, Troponin I < 0.01, Mgu-S-Vffrsosxslv Pept 167 H, Total Protein 6.3, Albumin 3.0 L, Globulin 3.3, Albumin/Globulin Ratio 0.9 L, CBC w Diff NO MAN DIFF REQ, RBC 3.42 L, MCV 84.4, MCH 28.2, MCHC 33.5, RDW 20.2 H, MPV 8.1, Gran % 78.7 H, Lymphocytes % 19.6 L, Monocytes % 0.1 L, Eosinophils % 1.4, Basophils % 0.2, Absolute Granulocytes 2.4, Absolute Lymphocytes 0.6 L, Absolute Monocytes 0 L, Absolute Eosinophils 0, Absolute Basophils 0, Valproic Acid 35.2 L Microbiology 12/23 954 URINE ROUT: Legionella Antigen - COMP 12/23 954 URINE ROUT: Streptococcus pneumoniae Antigen (M - COMP STREP PNEUMO BACTERIAL AG Vital Signs Date Time Temp Pulse Resp B/P B/P Pulse O2 O2 Flow FiO2 Mean Ox Delivery Rate 12/23 1400 56 94 12/23 1353 BIPAP 70% 12/23 1229 80 90/00 12/23 1200 93 BIPAP 70% 12/23 1150 82 94 12/23 0915 60 94 12/23 0900 98.8 85 48 84/00 99 BIPAP 100% 12/23 0900 99 BIPAP 100% 12/23 0820 95.8 84 14 82/00 100 BIPAP 12/23 0733 86 44/00 96 BIPAP 12/23 0633 96 BIPAP 100% 12/23 0626 85 96 12/23 0615 93 BIPAP 100% 12/23 0601 95.0 82 20 93 BIPAP 100% 12/23 0500 93.0 81 25 94/0 92 BIPAP 100% 12/23 0402 93.4 80 160/0 12/23 0400 93 BIPAP 100% 12/23 0344 71 24 170/115 96 BIPAP 12/23 0335 59 12/23 0325 92.9 74 22 187/95 12/23 0237 68/0 12/23 0231 66/0 12/23 0227 66/0 12/23 0220 70 60/0 92 BIPAP 12/23 0215 60/0 12/23 0205 58/0 12/23 0202 59 55/28 12/23 0201 56 52/28 12/23 0146 55 91 12/23 0144 57 88 12/23 0133 91.9 54 20 38/0 89 BIPAP 12/23 0025 57 98 12/23 0020 53 100 12/23 0001 91.7 54 20 68/0 95 BIPAP 12/22 2334 58/0 12/22 2258 91.3 63 66/0 95 BIPAP 12/22 2234 66/0 12/22 2231 72 93 12/22 2230 BIPAP 12/22 2209 93 30 70/0 96 BIPAP Intake & Output 12/23 1600 12/23 0800 12/23 0000 Intake Total Output Total 15 Balance -15 Output, Urine 15 Patient 191 lb 174 lb Weight Weight Bed scale Polina Lift Measurement Method Intake & Output 12/23 1600 Intake Total Output Total Balance Patient 191 lb Weight Weight Bed scale Measurement Method Exam General Appearance: lethargic, severe distress Head: atraumatic, normal appearance Respiratory: accessory muscle use, rhonchi, respiratory distress, B/L crackles throughout Cardiovascular: bradycardia, decreased peripheral pulses Gastrointestinal: soft, decreased bowel sounds, nondistended Extremities: normal inspection, slow capillary refill, swelling, 4+ LE B/L edema Cranial Nerves: pt lethargic, waxing/weaning though unresponsive to verbal commands. Skin: ecchymosis Skin Temp/Moisture Exam: Cool/Dry Sepsis Skin Exam (color): Flushed, Mottled, Pale Sepsis Peripheral Pulse Location: Dorsalis Pedis Sepsis Peripheral Pulse Exam: Weak Sepsis Cap Refill Exam: >2 sec Current Medications: Current Medications Sig/Courtney Start time Last Medication Dose Route Stop Time Status Admin Acetaminophen 1,000 MG Q6P PRN 12/23 0345 AC IV Albumin Human 25 GM ONCE ONE 12/23 0745 DC 12/23 IV 12/23 0746 0815 Albuterol Sulfate 3 ML BID 12/23 2100 AC INH Albuterol Sulfate 3 ML Q6 12/23 0600 DC 12/23 INH 0632 Ceftazidime 1,000 MG Q12 12/23 0900 DC 12/23 IV 1259 Ceftazidime 0 .STK-MED ONE 12/23 0101 DC .ROUTE Ceftazidime 1,000 MG ONCE ONE 12/22 2345 DC 12/23 IV 12/22 2346 0151 Ceftriaxone Sodium 1,000 MG DAILY 12/23 1436 AC IV Dextrose/Sodium 1,000 ML Q6H 12/23 1045 AC 12/23 Chloride IV 1112 Ipratropium [place] 2.5 ML Q6 12/23 0600 DC 12/23 INH 0633 Magnesium Sulfate 1 GM Q2H 12/23 0745 DC 12/23 Dextrose/Water 100 ML IV 12/23 1144 1000 Methylprednisolone 0 .STK-MED ONE 12/23 0604 DC .ROUTE Methylprednisolone 40 MG Q8 12/23 0600 AC 12/23 IV 1300 Norepinephrine 4 MG Q3H 12/23 1200 AC 12/23 Dextrose/Water 250 ML IV 1229 Norepinephrine 0 .STK-MED ONE 12/23 0752 DC IV Norepinephrine 4 MG Q24H 12/23 0200 DC 12/23 Dextrose/Water 250 ML IV 12/23 1159 0202 Norepinephrine 0 .STK-MED ONE 12/23 0156 DC IV Pantoprazole Sodium 40 MG DAILY 12/23 1405 AC IV Sodium Chloride 1,000 ML BOLUS ONE 12/23 1500 AC IV 12/23 1859 Sodium Chloride 1,000 ML BOLUS ONE 12/23 1130 DC 12/23 IV 12/23 1329 0930 Sodium Chloride 1,000 ML BOLUS ONE 12/23 0745 DC 12/23 IV 12/23 0944 0815 Sodium Chloride 1,000 ML Q10H 12/23 0600 DC 12/23 IV 0602 Sodium Chloride 1,000 ML Q10H 12/23 0400 DC 12/23 IV 0401 Sodium Chloride 1,000 ML BOLUS ONE 12/22 2345 DC 12/23 IV 12/23 0044 0013 Sodium Chloride 1,000 ML BOLUS ONE 12/22 2345 DC 12/23 IV 12/23 0044 0013 Vancomycin HCl 1,000 MG 0100 12/24 0100 AC Sodium Chloride 250 ML IV Vancomycin HCl 0 .STK-MED ONE 12/23 0101 DC .ROUTE Vancomycin HCl 1,000 MG ONCE ONE 12/22 2345 DC 12/23 Sodium Chloride 250 ML IV 12/23 0044 0112 Vasopressin 40 UNITS Q16H 12/23 0745 AC 12/23 Sodium Chloride 100 ML IV 0815 CXR Findings: SERVICE DATE: 12/22 EXAM TYPE: RAD - XRY-PORTABLE CHEST XRAY EXAMINATION: CHEST 1 VIEW CLINICAL INFORMATION: Hypoxia. COMPARISON: November 15, 2017. TECHNIQUE: An AP view of the chest is provided. FINDINGS: The cardiac silhouette is stable. There is patchy multifocal airspace disease. There are neither pleural effusions nor pneumothoraces. The osseous structures are stable. IMPRESSION: Nonspecific patchy multifocal airspace disease concerning for pneumonia. Recommendation is for a followup chest series to be obtained following treatment and/or resolution of symptoms to assure resolution of this appearance. Impression/Plan Impression/Problem List Impression: Ms. Max is a 72 y/o F with a PMH significant for schizophrenia, bipolar disorder, HFpEF, recurrent hypothermia that was transferred to [facility] from her extended care facility due to decreased oxygen saturation; on admit she was dyspneic, lethargic, unable to offer more history. Her initial admission picture is consistent with shock due to her unstable hemodynamic status (hypotensive, tachycardic) requiring pressor support. Source probably to be from the lungs, likely HAP, CXR showing bilateral patchy pulmonary infiltrates; also, pt has prior discharge from [place] (11/17), with positive respiratory cultures positive for Moraxella and MRSA. She was admitted to the ICU for management of septic shock 2/2 Hospital Acquired Pneumonia. Pt is currently on norepinephrine and vasopressin, with a BP of 90 over doppler with a positive Strep pneumo Ag, currently on vancomycin and ceftriaxone, currently normothermic though still leukopenic with a rising lactic acid. #IMPRESSION #Septic Shock 2/2 HAP, on norepinephrine and vasopressin #Vgwrk-fu-sidhosv hypercarbic respiratory failure #Healthcare-acquired Pneumonia #Altered mental status #Bipolar disorder/Schizoprenia #Septic Shock 2/2 HAP, on norepinephrine and vasopressin Pt's clinical picture of pancytopenia, hypothermia and hemodynamic instability requiring pressor support is consistent with septic shock. Likely source is the lungs, she was pancultured, awaiting for more results - CXR does show bilateral patchy infiltrates; with a recent admission treated for MRSA and Moraxella, HAP is high in the differential. Urinary antigen is positive for Strep Pneumo. She was initially with broad coverage including ceftazidime, now currently on IV ceftriaxone and vancomycin. She has received 5L of fluids, with latest BP reading 90/doppler with a HR of 88. Lactic acid keeps trending up, latest 5.1-- She does show sign of fluid overload, will continue to monitor. -Pt on norepinephrine and vasopressin -On D5 1/2 NS @ 150cc/hr -Continue methylprednisolone 40 Mg IV q8 -F/u cultures -F/u lactic acid -Positive Strep Pneumo U ag -Monitor Urine output -Head of bed eleveated #[id number] hypercarbic respiratory failure / Altered Mental Status Admission's ABG showed hypercarbia and acidemia with elevated HCO3. Picture is consistent of [id number]-[id number] hypercarbic respiratory failure. She is currently on BiPAP 18/6, FiO2 of 65% maintaining sat >92%. Her respiratory status, metabolic state and compromised hemodynamic picture are all likely contributing to her lethargic mental status. -BiPAP 18/6 -Pulmonary toilet #Bipolar disorder Pt with a history of schizophrenia and bipolar disorder. Home medications have been held. DNR/DNI NPO DVT PPX Problem List: 1. Altered mental status 2. Schizophrenia 3. Bipolar affective disorder 4. Sepsis 5. HCAP (healthcare-associated pneumonia) Pain Ratin (not assessed, pt lethargic) Tomorrow's Labs & Rationales: cbc/icu lab bundle Plan DVT/Prophylaxis: mechanical Tawanna GARCIA,[facility] 12/23/17 1336: Attending MD Review Statement Attending Sign Off Attending Cosign Statement: I have: examined this patient, reviewed aval EMR data, personally reviewd images, discussd w/resident/PA/PUT[employer] MIXER [employer] APPLIER, discussed mgmt plan w/lori, discussed mgmt plan w/CM, discussed mgmt plan w/pt, agreed w/resident/PA/PUT[employer] MIXER [employer] APPLIER, amended to note. Other Findings: Seen and examined independently All the data reviewed as noted -General: Ill-appearing elderly woman in moderate respiratory distress -HEENT: NCAT, Bob, EOMI, anicteric sclera, moist mucous membranes, BiPAP mask in place -Neck: Supple, no obvious JVP but limited due to body habitus, trachea midline, moderate accessory respiratory muscle use -Cardio: Faint/distant heart sounds -Pulmonary: Scattered rhonchi with crackles -Abdomen: Palpable lower abdominal mass, mildly distended, nontender, no rigidity, bowel sounds intact -Neuro: Somnolent/lethargic, minimally arousable to tactile/noxious/verbal stimuli -Extremities: 4+ bilateral lower extremity pitting edema, normal pulses Labs/imaging/studies -CBC: WBC 3.0, hemoglobin 9.7, hematocrit 28.9, platelet 87 -BMP: Sodium 140, potassium 4.5, chloride 97, CO2 35, BUN 26, creatinine 0.6, anion gap 9, glucose 152 -LFT: Within normal limits -Miscellaneous: Magnesium 1.7, valproic acid level 35.2, troponin I <0.01, BNP 167 -ABG: pH 7.32, PCO2 67, PO2 168, HCO3 30 -Echocardiogram 06/08/17: LVEF >675% without regional wall motion abnormalities, mild/moderate aortic regurgitation, moderate tricuspid regurgitation -CXR: * Nonspecific patchy multifocal airspace disease concerning for pneumonia. * Recommendation is for a followup chest series to be obtained following treatment and/or resolution of symptoms to assure resolution of this appearance. This is a 72-year-old lady who resides in a retirement with schizoaffective disorder, previous CVA, wheelchair bound, heart failure with preserved ejection fraction, significant aortic stenosis, goiter, previous radioactive iodine treatment, history of breast cancer with lumpectomy and radiation, chronic hyponatremia, multiple hospitalizations for aspiration pneumonia and hypothermia , came into the hospital with cough shortness of breath decreased mentation, severe septic shock with chest x-ray suggestive of bilateral recurrent pulmonary infiltrates. She also does have chronic on and off hypoglycemia for which she has had extensive blood work. She is now with a triple-lumen on maximum vasopressors and getting fluid resuscitated now on broad-spectrum antibiotics. She is now being resuscitated with aggressive fluid. Patient does seem to have total body fluid overload with significant gross anasarca however. Her blood work as noted IMPRESSION Severe septic shock, hypotension, hypo glycemia which is mild in a lady with gross body fluid overload with anasarca now requiring resort pressors and fluid resuscitation as well to maintain her blood pressure. Most likely etiologies recurrent aspiration pneumonia as she has worsening performance status. After discussion with the family last time she is now DNR/DNI. Due to her increased work of breathing she is now also on BiPAP. 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 Fluid boluses if needed. We will watch her for pulmonary edema. Continue BiPAP even though it may not be helping her we will see whether this would change her status Stress dose steroids IV proton pump inhibitor Keep the head of bed elevated Watch urine output check trop Venodyne boots Check crit and transfuse if less than 24 Agg pulm toilet Keep in icu Critically ill still, tts 42 mins Patient is DNR/DNI she appears to be set terminally ill with recurrent hospitalization. Daughter was attempted to be reached apparently she isn't [place] but she did discuss with the RN and she is aware of the poor prognosis patient is DNR/DNI. If she does not improve with current therapy we will make her comfort care in the future.
[2017-12-23 16:00] VITALS: BP 110/70
[2017-12-23 17:02] LABS: PT 11.9 SEC (9.4-12.5); PTT 32 SEC (25-37)
--- NOTE | 2017-12-23 22:14 | RADIOLOGY REPORT ---
EXAMINATION: XR PORTABLE CHEST CLINICAL INFORMATION: Pulmonary edema. Increased work of breathing. COMPARISON: Chest x-ray 12/22/2017 TECHNIQUE: Portable frontal view of the chest was obtained. 9:35 PM FINDINGS: There is extensive airspace disease bilateral. This has worsened since the exam of 12/02/2017. There is greater consolidation in both lungs particularly in the upper lobes. The right upper lobe is nearly airless. No large pleural effusion. No pneumothorax. IMPRESSION: Worsening of bilateral airspace disease since prior chest x-ray 12/22/2017.
[2017-12-24] VITALS: BP 110/00
[2017-12-24 05:35] LABS: ABSOLUTE BASOPHIL COUNT 0 /CUMM (0.0-0.2); ABSOLUTE EOSINOPHIL COUNT 0 /CUMM (0.0-0.7); ABSOLUTE GRANULOCYTE CT 2.3 /CUMM (1.4-6.5); ABSOLUTE LYMPH COUNT 0.3 /CUMM (1.2-3.4); ABSOLUTE MONOCYTE COUNT 0 /CUMM (0.10-0.60); BASOPHIL % 0.1 % (0.0-2.0); EOSINOPHIL % 0.1 % (0-5); GRANULOCYTE % 87.9 % (42.2-75.2); MEAN CORPUSCULAR HGB 27.7 PG (27.0-31.0); MEAN CORPUSCULAR HGB CONC 32.5 G/DL (33.0-37.0); MEAN CORPUSCULAR VOLUME 85.2 FL (81.0-99.0); MEAN PLATELET VOLUME 8.5 FL (7.4-10.4); PLATELET COUNT 67 /CUMM (130-400); RBC DISTRIBUTION WIDTH 20.3 % (11.5-14.5); RED BLOOD CELL CT 2.81 /CUMM (4.20-5.40); WHITE BLOOD CELL COUNT 2.6 /CUMM (4.8-10.8)
[2017-12-24 07:00] VITALS: BP 160/0
--- NOTE | 2017-12-24 07:50 | RADIOLOGY REPORT ---
EXAMINATION: XR PORTABLE CHEST CLINICAL INFORMATION: Pulmonary edema, interval assessment COMPARISON: Multiple priors, most recent dated 12/23/2017. TECHNIQUE: Portable frontal view of the chest was obtained. FINDINGS: The cardiomediastinal silhouette is likely unchanged. Compared to 12/23/2017, there is a similar pattern of extensive airspace disease with relative preserved aeration of the right lung base. Dense right upper lobe opacity demonstrates a component of volume loss. Blunting of the left costophrenic angle; cannot exclude layering pleural effusion. No evidence of pneumothorax. Osseous detail is relatively limited. IMPRESSION: No substantial change when compared to 12/23/2017. Extensive bilateral airspace disease, with relative sparing of the right lung base. There is a superimposed component of right upper lobe collapse in addition to other parenchymal opacities.
--- NOTE | 2017-12-24 08:21 | PN- CRCU ---
Subjective HPI/Critical Care Issues: The patient remains on BiPAP, with poor oxygenation, noting she is now on 100% to maintain her saturations in the 90s. The patient's current chest x-ray shows severe worsening of bilateral opacities, with right upper lobe collapse. The patient remains on Levophed and vasopressin for blood pressure support. She continues to have good urine output. Her hemoglobin is down to 7.8 today, likely delusional as there is no report of bleeding. She continues to be pancytopenic with 32 bands. She remains minimally responsive. Objective Current Medications: Current Medications Sig/Courtney Start time Last Medication Dose Route Stop Time Status Admin Acetaminophen 1,000 MG Q6P PRN 12/23 0345 AC IV Albuterol Sulfate 3 ML BID 12/23 2100 AC 12/23 INH 2005 Albuterol Sulfate 3 ML Q6 12/23 0600 NV 12/23 INH 0632 Ceftazidime 1,000 MG Q12 12/23 0900 NV 12/23 IV 1259 Ceftriaxone Sodium 1,000 MG DAILY 12/23 1436 12/23 IV 1821 Dextrose/Sodium 1,000 ML Q6H 12/23 1045 AC 12/23 Chloride IV 2107 Furosemide 20 MG .STK-MED ONE 12/23 2314 DC IV 12/23 2315 Furosemide 60 MG ONCE ONE 12/23 2215 DC 12/23 IV 12/23 221 2213 Furosemide 40 MG .STK-MED ONE 12/23 2200 DC IV 12/23 2201 Ipratropium [place] 2.5 ML Q6 12/23 0600 NV 12/23 INH 0633 Magnesium Sulfate 1 GM Q2H 12/23 0745 NV 12/23 Dextrose/Water 100 ML IV 12/23 1144 1000 Methylprednisolone 40 MG Q8 12/23 0600 12/24 IV 0652 Norepinephrine 4 MG Q3H 12/23 1200 AC 12/24 Dextrose/Water 250 ML IV 0300 Norepinephrine 4 MG Q24H 12/23 0200 DC 12/23 Dextrose/Water 250 ML IV 12/23 1159 0202 Pantoprazole Sodium 40 MG DAILY 12/23 1405 AC 12/23 IV 1821 Sodium Chloride 1,000 ML BOLUS ONE 12/23 1500 DC 12/23 IV 12/23 1859 1600 Sodium Chloride 1,000 ML BOLUS ONE 12/23 1130 DC 12/23 IV 12/23 1329 0930 Sodium Chloride 1,000 ML BOLUS ONE 12/23 0745 DC 12/23 IV 12/23 0944 0815 Sodium Chloride 1,000 ML Q10H 12/23 0600 DC 12/23 IV 0602 Vancomycin HCl 1,000 MG 0100 12/24 0100 AC 12/24 Sodium Chloride 250 ML IV 0011 Vasopressin 40 UNITS Q16H 12/23 0745 DC 12/23 Sodium Chloride 100 ML IV 2106 Vital Signs & I&O Last 24 Hrs of Vitals and I&O: Vital Signs Date Time Temp Pulse Resp B/P B/P Pulse O2 O2 Flow FiO2 Mean Ox Delivery Rate 12/24 0618 66 106/00 12/24 0606 68 93 12/24 0400 97 BIPAP 100% 12/24 0315 68 96 12/24 0300 68 72/00 12/24 0151 72 96 12/24 0003 160/00 12/24 0000 97 BIPAP 100% 12/24 0000 97.8 68 42 110/00 97 BIPAP 100% 12/23 2158 93 90 12/23 2100 142/00 12/23 2000 94 BIPAP 85% 12/23 1910 82 92 12/23 1821 74 98/00 12/23 1615 88 92 12/23 1600 97.0 80 40 110/70 94 BIPAP 70% 12/23 1600 92 BIPAP 70% 12/23 1400 56 94 12/23 1353 BIPAP 70% 12/23 1229 80 90/00 12/23 1200 93 BIPAP 70% 12/23 1150 82 94 12/23 0915 60 94 12/23 0900 98.8 85 48 84/00 99 BIPAP 100% 12/23 0900 99 BIPAP 100% 12/23 0820 95.8 84 14 82/00 100 BIPAP Intake & Output 12/24 1600 12/24 0800 12/24 0000 Intake Total 407 2165 Output Total 1550 325 Balance -1143 1840 Intake, IV 407 2165 Number 1 Bowel Movements Output, Urine 1550 325 Patient 190 lb Weight Exam General Appearance: lethargic, moderate distress Head: atraumatic, normal appearance Respiratory: accessory muscle use, rhonchi, respiratory distress, B/L crackles throughout Cardiovascular: bradycardia, decreased peripheral pulses Gastrointestinal: soft, decreased bowel sounds, nondistended Extremities: normal inspection, slow capillary refill, swelling, 4+ LE B/L edema Cranial Nerves: pt lethargic, waxing/weaning though unresponsive to verbal commands. Skin: ecchymosis Skin Temp/Moisture Exam: Cool/Dry Sepsis Skin Exam (color): Flushed, Mottled, Pale Sepsis Peripheral Pulse Location: Dorsalis Pedis Sepsis Peripheral Pulse Exam: Weak Sepsis Cap Refill Exam: >2 sec Results Last 24 Hrs of Lab Results: Laboratory Tests 12/24/17 0500: Anion Gap 11, Estimated GFR > 60, Glucose 93, Lactic Acid 3.0 H, Calcium 8.1 L , Phosphorus 4.0, Magnesium 1.8, Total Bilirubin 0.2, AST 32, ALT 36, Albumin 2.7 L, CBC w Diff MAN DIFF ORDERED, RBC 2.81 L, MCV 85.2, MCH 27.7, MCHC 32.5 L, RDW 20.3 H, MPV 8.5, Gran % 87.9 H, Lymphocytes % 10.2 L, Monocytes % 1.7, Eosinophils % 0.1, Basophils % 0.1, Absolute Granulocytes 2.3, Segmented Neutrophils 23 L, Band Neutrophils 32 H, Absolute Lymphocytes 0.3 L, Lymphocytes 6 L, Absolute Monocytes 0 L, Absolute Eosinophils 0, Absolute Basophils 0, Metamyelocytes 39 H, Nucleated RBCs 2 H, Platelet Estimate DECREASED, Normocytic RBCs VERIFIED, Hypochromic-Microcytic 1+ 12/24/17 0300: Lactic Acid Cancelled 12/24/17 0200: Lactic Acid 3.5 H 12/23/17 2305: Lactic Acid 4.9 H 12/23/17 2000: Lactic Acid 5.1 H 12/23/17 1751: Lactic Acid Cancelled 12/23/17 1610: Lactic Acid Cancelled 12/23/17 1600: Anion Gap 14, Estimated GFR > 60, Glucose 212 H, Calcium 8.4, Phosphorus 3.6, Magnesium 2.0, Total Bilirubin 0.3, AST 36, ALT 33, Troponin I < 0.01, Albumin 2.9 L, PT 11.9, INR 1.09, APTT 32 12/23/17 1547: Lactic Acid Cancelled 12/23/17 1505: Sodium Cancelled, Potassium Cancelled, Chloride Cancelled, Carbon Dioxide Cancelled, Anion Gap Cancelled, BUN Cancelled, Creatinine Cancelled, Glucose Cancelled, Calcium Cancelled, Phosphorus Cancelled, Magnesium Cancelled, Total Bilirubin Cancelled, AST Cancelled, ALT Cancelled, Albumin Cancelled 12/23/17 1500: Troponin I Cancelled 12/23/17 1310: Lactic Acid 5.2 H 12/23/17 1300: Lactic Acid Cancelled 12/23/17 1041: Hemoglobin A1c Cancelled 12/23/17 1010: Lactic Acid 4.7 H 12/23/17 0955: Urine Color YEL, Urine Clarity HAZY H, Urine pH 6.0, Ur Specific [place] 1.020, Urine Protein 30 H, Urine Ketones 15 H, Urine Nitrite NEG, Urine Bilirubin NEG , Urine Urobilinogen 0.2, Ur Leukocyte Esterase NEG, Ur Microscopic SEDIMENT EXAMINED, Urine RBC 1-3, Urine WBC 1-3 H, Ur Epithelial Cells MANY H, Urine Bacteria MANY H, Urine Hemoglobin SMALL H, Urine Glucose NEG Diagnostic Data CXR Findings: No substantial change when compared to 12/23/2017. Extensive bilateral airspace disease, with relative sparing of the right lung base. There is a superimposed component of right upper lobe collapse in addition to other parenchymal opacities. Impression/Plan Impression/Plan Impression/Plan: 1. Severe septic shock in the setting of acute worsening respiratory failure and aspiration pneumonia. Urinary antigen is positive for strep pneumo. 2. Right upper lobe collapse and multi lobar infiltrates, possible ARDS. 3. Persistent hypotension in the setting of sepsis, on pressors. 4. Aortic stenosis with diastolic heart failure and increased propensity for heart failure. 5. Pancytopenia in the setting of sepsis. 6. Anemia without active bleeding. 7. History of COPD/bronchospasm, on IV steroids. Recommendations: * Check labs every 8 hours. May need transfusion. * Check stat ABG. * Continue to monitor the patient on high flow and BiPAP for comfort. * Continue nebs/total respiratory care. * Chest PT to the right upper lobe with nebulizer treatments. * The patient would require intubation and mechanical ventilation for bronchoscopy to alleviate the right upper lobe collapse. * Follow-up cultures. * Continue broad-spectrum antibiotics. The patient remains on vancomycin and ceftriaxone for pneumococcal coverage. * Continue IV fluid resuscitation. * Attempt to wean pressors down to maintain the blood pressure greater than 90 mmHg. * Continue IV Solu-Medrol for acute exacerbation of COPD, however decreased to 40 mg every 12 hours. * DVT prophylaxis at all times with Alps. * N.p.o., strict aspiration precautions. * The patient is DNR/DNI. * The patient is critically ill with a very poor prognosis. I have discussed this with the housestaff. We will be contacting the patient's family urgently for a goals of care discussion.
--- NOTE | 2017-12-24 08:43 | PN- Resident CRCU ---
Subjective HPI/CRCU Issues: #Septic Shock 2/2 HAP, on norepinephrine and vasopressin #[id number] hypercarbic respiratory failure #Healthcare-acquired Pneumonia #Altered mental status #Bipolar disorder/Schizoprenia 24 Hour Events: Pt seen and examined this am. She appears awake though not alert. No purposeful eye contact and unresponsive to commands. She is currently off vasopressin, only on norepinephrine. She remains with generalized edema. Lactic acid trending down after aggresive fluid resuscitation. Had a good urine output response to 60 mg IV furosemide. Objective Vital Signs & I&O Last 8 Hrs of Vitals and I&O: Intake & Output 12/24 1600 12/24 0800 12/24 0000 Intake Total 407 2165 Output Total 1550 325 Balance -1143 1840 Intake, IV 407 2165 Number 1 Bowel Movements Output, Urine 1550 325 Patient 190 lb Weight Laboratory Tests 12/24 12/24 0850 0500 Blood Gas pH (7.35 - 7.45 PH) 7.26 *L pCO2 (35 - 45 TORR) 61 *H pO2 (80 - 100 TORR) 81 HCO3 (21 - 28 MEQ/L) 27 ABG O2 Sat (Measured) (>96.0 %) 94.0 L Carboxyhemoglobin (1.5 - 5.0 %) 0.2 L O2 Concentration % 100 Respiration Rate (BPM) 22 O2 Delivery Method BIPAP Vent Mode ST Expiratory Pressure (CM H2O P) 6 Inspiratory Pressure (CM H2O P) 18 Chemistry Sodium (137 - 145 mmol/L) 143 Potassium (3.5 - 5.1 mmol/L) 4.0 Chloride (98 - 107 mmol/L) 104 Carbon Dioxide (22 - 30 mmol/L) 28 Anion Gap (5 - 16) 11 BUN (7 - 17 mg/dL) 18 H Creatinine (0.5 - 1.0 mg/dL) 0.6 Estimated GFR (>60 ml/min) > 60 Glucose (65 - 99 mg/dL) 93 Lactic Acid (0.7 - 2.1 mmol/L) 3.0 H Calcium (8.4 - 10.2 mg/dL) 8.1 L Phosphorus (2.5 - 4.5 mg/dL) 4.0 Magnesium (1.6 - 2.3 mg/dL) 1.8 Total Bilirubin (0.2 - 1.3 mg/dL) 0.2 AST (14 - 36 U/L) 32 ALT (9 - 52 U/L) 36 Albumin (3.5 - 5.0 g/dL) 2.7 L Hematology CBC w Diff MAN DIFF ORDERED WBC (4.8 - 10.8 /CUMM) 2.6 L RBC (4.20 - 5.40 /CUMM) 2.81 L Hgb (12.0 - 16.0 G/DL) 7.8 L Hct (37 - 47 %) 24.0 L MCV (81.0 - 99.0 FL) 85.2 MCH (27.0 - 31.0 PG) 27.7 MCHC (33.0 - 37.0 G/DL) 32.5 L RDW (11.5 - 14.5 %) 20.3 H Plt Count (130 - 400 /CUMM) 67 L MPV (7.4 - 10.4 FL) 8.5 Gran % (42.2 - 75.2 %) 87.9 H Lymphocytes % (20.5 - 51.1 %) 10.2 L Monocytes % (1.7 - 9.3 %) 1.7 Eosinophils % (0 - 5 %) 0.1 Basophils % (0.0 - 2.0 %) 0.1 Absolute Granulocytes (1.4 - 6.5 /CUMM) 2.3 Segmented Neutrophils (42.2 - 75.2 %) 23 L Band Neutrophils (0.0 - 5.0 %) 32 H Absolute Lymphocytes (1.2 - 3.4 /CUMM) 0.3 L Lymphocytes (20.5 - 51.1 %) 6 L Absolute Monocytes (0.10 - 0.60 /CUMM) 0 L Absolute Eosinophils (0.0 - 0.7 /CUMM) 0 Absolute Basophils (0.0 - 0.2 /CUMM) 0 Metamyelocytes (0.0 - 1.0 %) 39 H Nucleated RBCs (0.0 - 0.0 /100WBC) 2 H Platelet Estimate (ADEQUATE) DECREASED Normocytic RBCs VERIFIED Hypochromic-Microcytic 1+ Miscellaneous Phlebotomy Draw Site LEFT RADIAL 12/24 12/24 12/23 12/23 12/23 0300 0200 2305 2000 1751 Chemistry Lactic Acid (0.7 - 2.1 mmol/L) Cancelled 3.5 H 4.9 H 5.1 H Cancelled 12/23 12/23 12/23 12/23 1610 1600 1547 1505 Chemistry Sodium (137 - 145 mmol/L) 139 Cancelled Potassium (3.5 - 5.1 mmol/L) 4.8 Cancelled Chloride (98 - 107 mmol/L) 102 Cancelled Carbon Dioxide (22 - 30 mmol/L) 24 Cancelled Anion Gap (5 - 16) 14 Cancelled BUN (7 - 17 mg/dL) 20 H Cancelled Creatinine (0.5 - 1.0 mg/dL) 0.6 Cancelled Estimated GFR (>60 ml/min) > 60 Glucose (65 - 99 mg/dL) 212 H Cancelled Lactic Acid Cancelled Cancelled Calcium (8.4 - 10.2 mg/dL) 8.4 Cancelled Phosphorus (2.5 - 4.5 mg/dL) 3.6 Cancelled Magnesium (1.6 - 2.3 mg/dL) 2.0 Cancelled Total Bilirubin (0.2 - 1.3 mg/dL) 0.3 Cancelled AST (14 - 36 U/L) 36 Cancelled ALT (9 - 52 U/L) 33 Cancelled Troponin I (< 0.11 ng/ml) < 0.01 Albumin (3.5 - 5.0 g/dL) 2.9 L Cancelled Coagulation PT (9.4 - 12.5 SEC) 11.9 INR (0.90 - 1.19) 1.09 APTT (25 - 37 SEC) 32 12/23 12/23 12/23 12/23 12/23 1500 1310 1300 1041 1010 Chemistry Hemoglobin A1c Cancelled Lactic Acid (0.7 - 2.1 mmol/L) 5.2 H Cancelled 4.7 H Troponin I Cancelled 12/23 0955 Urines Urine Color (YEL,AMB,STR) YEL Urine Clarity (CLEAR) HAZY H Urine pH (5.0 - 8.0) 6.0 Ur Specific [place] (1.001 - 1.035) 1.020 Urine Protein (NEG,<30 MG/DL) 30 H Urine Ketones (NEG) 15 H Urine Nitrite (NEG) NEG Urine Bilirubin (NEG) NEG Urine Urobilinogen (0.1 - 1.0 EU/dl) 0.2 Ur Leukocyte Esterase (NEG) NEG Ur Microscopic SEDIMENT EXAMINED Urine RBC (0 - 5 /HPF) 1-3 Urine WBC (0 - 2 /HPF) 1-3 H Ur Epithelial Cells (NONE,FEW) MANY H Urine Bacteria (NEG/NONE) MANY H Urine Hemoglobin (NEG) SMALL H Urine Glucose (N MG/DL) NEG Vital Signs Date Time Temp Pulse Resp B/P B/P Pulse O2 O2 Flow FiO2 Mean Ox Delivery Rate 12/24 0820 94 BIPAP 100% 12/24 0815 66 93 12/24 0618 66 106/00 12/24 0606 68 93 12/24 0400 97 BIPAP 100% 12/24 0315 68 96 12/24 0300 68 72/00 12/24 0151 72 96 12/24 0003 160/00 12/24 0000 97 BIPAP 100% 12/24 0000 97.8 68 42 110/00 97 BIPAP 100% 12/23 2158 93 90 12/23 2100 142/00 12/23 2000 94 BIPAP 85% 12/23 1910 82 92 12/23 1821 74 98/00 12/23 1615 88 92 12/23 1600 97.0 80 40 110/70 94 BIPAP 70% 12/23 1600 92 BIPAP 70% 12/23 1400 56 94 12/23 1353 BIPAP 70% 12/23 1229 80 90/00 12/23 1200 93 BIPAP 70% 12/23 1150 82 94 Exam General Appearance: awake, lethargic, moderate distress Head: atraumatic Neck: normal inspection, supple Respiratory: decreased breath sounds, accessory muscle use, respiratory distress , Crackles B/L throughout both pulmonary lara Cardiovascular: regular rate/rhythm, edema Gastrointestinal: soft, no organomegaly, diminished bowel sounds Extremities: 4+ edema B/L on both UE and LE Skin: mottled Skin Temp/Moisture Exam: Cool/Dry Sepsis Skin Exam (color): Flushed, Mottled Sepsis Peripheral Pulse Location: Dorsalis Pedis Sepsis Peripheral Pulse Exam: Weak Sepsis Cap Refill Exam: >2 sec Current Medications: Current Medications Sig/Courtney Start time Last Medication Dose Route Stop Time Status Admin Acetaminophen 1,000 MG Q6P PRN 12/23 0345 AC IV Albuterol Sulfate 3 ML BID 12/23 2100 AC 12/23 INH 2005 Albuterol Sulfate 3 ML Q6 12/23 0600 DC 12/23 INH 0632 Ceftazidime 1,000 MG Q12 12/23 0900 DC 12/23 IV 1259 Ceftriaxone Sodium 1,000 MG DAILY 12/23 1436 AC 12/24 IV 0912 Dextrose/Sodium 1,000 ML Q6H 12/23 1045 AC 12/23 Chloride IV 2107 Furosemide 20 MG .STK-MED ONE 12/23 2314 DC IV 12/23 2315 Furosemide 60 MG ONCE ONE 12/23 2215 DC 12/23 IV 12/23 2216 2213 Furosemide 40 MG .STK-MED ONE 12/23 2200 DC IV 12/23 2201 Ipratropium [place] 2.5 ML Q6 12/23 0600 DC 12/23 INH 0633 Magnesium Sulfate 1 GM Q2H 12/23 0745 DC 12/23 Dextrose/Water 100 ML IV 12/23 1144 1000 Methylprednisolone 40 MG Q8 12/23 0600 AC 12/24 IV 0652 Norepinephrine 4 MG Q3H 12/23 1200 AC 12/24 Dextrose/Water 250 ML IV 0300 Norepinephrine 4 MG Q24H 12/23 0200 DC 12/23 Dextrose/Water 250 ML IV 12/23 1159 0202 Pantoprazole Sodium 40 MG DAILY 12/23 1405 AC 12/24 IV 0912 Sodium Chloride 1,000 ML BOLUS ONE 12/23 1500 DC 12/23 IV 12/23 1859 1600 Sodium Chloride 1,000 ML BOLUS ONE 12/23 1130 DC 12/23 IV 12/23 1329 0930 Sodium Chloride 1,000 ML BOLUS ONE 12/23 0745 DC 12/23 IV 12/23 0944 0815 Sodium Chloride 1,000 ML Q10H 12/23 0600 DC 12/23 IV 0602 Vancomycin HCl 1,000 MG 0100 12/24 0100 12/24 Sodium Chloride 250 ML IV 0011 Vasopressin 40 UNITS Q16H 12/23 0745 DC 12/23 Sodium Chloride 100 ML IV 2106 Impression/Plan Impression/Problem List Impression: Ms. Max is a 72 y/o F with a PMH significant for schizophrenia, bipolar disorder, HFpEF, recurrent hypothermia that was transferred to [facility] ED from her extended care facility due to decreased oxygen saturation; on admit she was dyspneic, lethargic, unable to offer more history. Her initial admission picture is consistent with shock due to her unstable hemodynamic status (hypotensive, tachycardic) requiring pressor support. Source probably to be from the lungs, likely HAP, CXR showing bilateral patchy pulmonary infiltrates; also, pt has prior discharge from [place] (11/17), with positive respiratory cultures positive for Moraxella and MRSA. She was admitted to the ICU for management of septic shock 2/2 Hospital Acquired Pneumonia. Pt is currently on norepinephrine off vasopressin, with a BP of >100 /doppler with a positive Strep pneumo Ag, currently on vancomycin and ceftriaxone, normothermic though still leukopenic with a downward trending lactic acid after aggresive fluid resuscitation. #IMPRESSION #Septic Shock 2/2 HAP, on norepinephrine, off vasopressin #[id number] hypercarbic respiratory failure, on BiPAP with 100% FiO2. #Healthcare-acquired Pneumonia, positive U ag for Strep Pneumo #Altered mental status, multifactorial #Bipolar disorder/Schizoprenia #Septic Shock 2/2 HAP, on norepinephrine Pt's clinical picture of pancytopenia, hypothermia and hemodynamic instability requiring pressor support is consistent with septic shock. Likely source is the lungs, CXR does show bilateral patchy infiltrates plus she had a recent admission treated for MRSA and Moraxella and now a positive urinary Ag for Strep Pneumo. Culture results to be followed up. She does show sign of fluid overload, 60mg IV lasix given once overnight with good urine output. Most recent CXR still show extensive b/l airspace disease with a R upper lobe collapse. -Pt on norepinephrine, wean as BP allows for a target of >90mmHg -Pt on D5 1/2 NS @ 150cc/hr -Continue methylprednisolone 40 Mg IV q8 -F/u cultures -F/u labs q8 -Positive Strep Pneumo U ag -Monitor Urine output -Head of bed eleveated #[id number] hypercarbic respiratory failure / Altered Mental Status Admission's ABG showed hypercarbia and acidemia with elevated HCO3. Picture is consistent of [id number] hypercarbic respiratory failure. She is currently on BiPAP 18/6, FiO2 of 65% maintaining sat >92%. Her respiratory status, metabolic state and compromised hemodynamic picture are all likely contributing to her lethargic mental status. Latest ABG shows a pO2 of 81 while on 100% FiO2 on BiPAP. -BiPAP 18/6 -Pulmonary toilet -Chest PT #Bipolar disorder Pt with a history of schizophrenia and bipolar disorder. Home medications have been held. DNR/DNI NPO DVT PPX Problem List: 1. Altered mental status 2. Respiratory failure 3. Pneumonia Pain Ratin (not assessed, pt lethargic) Tomorrow's Labs & Rationales: cbc icu lab bundle Plan DVT/Prophylaxis: mechanical
[2017-12-24 15:49] LABS: ABSOLUTE BASOPHIL COUNT 0 /CUMM (0.0-0.2); ABSOLUTE EOSINOPHIL COUNT 0 /CUMM (0.0-0.7); ABSOLUTE GRANULOCYTE CT 3.9 /CUMM (1.4-6.5); ABSOLUTE LYMPH COUNT 0.4 /CUMM (1.2-3.4); ABSOLUTE MONOCYTE COUNT 0.1 /CUMM (0.10-0.60); BASOPHIL % 0.2 % (0.0-2.0); EOSINOPHIL % 0.1 % (0-5); GRANULOCYTE % 88.5 % (42.2-75.2); HEMATOCRIT 22.4 % (37-47); MEAN CORPUSCULAR HGB 27.5 PG (27.0-31.0); MEAN CORPUSCULAR HGB CONC 32.3 G/DL (33.0-37.0); MEAN CORPUSCULAR VOLUME 85.3 FL (81.0-99.0); MEAN PLATELET VOLUME 8.5 FL (7.4-10.4); PLATELET COUNT 63 /CUMM (130-400); RBC DISTRIBUTION WIDTH 20.3 % (11.5-14.5); RED BLOOD CELL CT 2.62 /CUMM (4.20-5.40)
[2017-12-24 16:00] VITALS: BP 110/0
[2017-12-24 16:16] LABS: WHITE BLOOD CELL COUNT 4.4 /CUMM (4.8-10.8)
[2017-12-24 23:00] VITALS: BP 116/0
[2017-12-25 05:37] LABS: HEMATOCRIT 26.1 % (37-47); MEAN CORPUSCULAR HGB 28.3 PG (27.0-31.0); MEAN CORPUSCULAR HGB CONC 32.7 G/DL (33.0-37.0); MEAN CORPUSCULAR VOLUME 86.4 FL (81.0-99.0); MEAN PLATELET VOLUME 8.7 FL (7.4-10.4); PLATELET COUNT 56 /CUMM (130-400); RBC DISTRIBUTION WIDTH 18.5 % (11.5-14.5); RED BLOOD CELL CT 3.02 /CUMM (4.20-5.40); WHITE BLOOD CELL COUNT 6.2 /CUMM (4.8-10.8)
--- NOTE | 2017-12-25 07:20 | PN- CRCU ---
Subjective HPI/Critical Care Issues: The patient remains minimally responsive. She is not following commands. Vasopressin is now off and the patient is on Levaphed at 5mcg/min. Her urine output remains over 30 ml per hour. She remains on the Bipap at 22/6, RR 28, 100%, to maintain saturations in the 90's. Objective Current Medications: Current Medications Sig/Courtney Start time Last Medication Dose Route Stop Time Status Admin Acetaminophen 1,000 MG Q6P PRN 12/23 0345 AC IV Albuterol Sulfate 3 ML BID 12/23 2100 AC 12/24 INH 1948 Ceftriaxone Sodium 1,000 MG DAILY 12/23 1436 AC 12/24 IV 0912 Dextrose/Sodium 1,000 ML Q6H 12/23 1045 DC 12/23 Chloride IV 2107 Methylprednisolone 40 MG Q12 12/24 2100 AC 12/24 IV 2105 Methylprednisolone 40 MG Q8 12/23 0600 DC 12/24 IV 0652 Norepinephrine 4 MG Q13H 12/24 1800 AC 12/25 Dextrose/Water 250 ML IV 0614 Norepinephrine 4 MG Q3H 12/23 1200 DC 12/24 Dextrose/Water 250 ML IV 12/24 1759 0300 Pantoprazole Sodium 40 MG DAILY 12/23 1405 AC 12/24 IV 0912 Sodium Chloride 500 ML BOLUS ONE 12/24 2230 CAN IV 12/24 2329 Vancomycin HCl 1,000 MG 0100 12/24 0100 AC 12/25 Sodium Chloride 250 ML IV 0132 Vital Signs & I&O Last 24 Hrs of Vitals and I&O: Vital Signs Date Time Temp Pulse Resp B/P B/P Pulse O2 O2 Flow FiO2 Mean Ox Delivery Rate 12/25 0614 68 103/46 12/25 0535 52 99 12/25 0406 71 100 12/25 0400 100 BIPAP 100% 12/25 0154 58 100 12/25 0000 100 BIPAP 100% 12/24 2320 67 99 12/24 2300 96.0 70 31 116/0 100 BIPAP 100% 12/24 2046 96 BIPAP 100% 12/24 2000 99 BIPAP 100% 12/24 1950 82 99 12/24 1652 79 97 12/24 1624 77 30 94/0 12/24 1600 97 BIPAP 95% 12/24 1600 96.8 72 18 110/0 94 BIPAP 95% 12/24 1352 70 97 12/24 1200 98 BIPAP 100% 12/24 1102 73 97 12/24 0820 94 BIPAP 100% 12/24 0815 66 93 12/24 0800 93 BIPAP 100% Intake & Output 12/25 0800 12/25 0000 12/24 1600 Intake Total 400 500.4 142 Output Total 250 200 223 Balance 150 300.4 -81 Intake, Blood 350 Product Intake, IV 400 150.4 142 Intake, Oral 0 0 Number 0 Bowel Movements Output, Urine 250 200 223 Patient 195 lb Weight Exam General Appearance: minimally responsive, moderate distress Head: atraumatic, normal appearance Respiratory: accessory muscle use, rhonchi, respiratory distress, B/L crackles throughout Cardiovascular: bradycardia, decreased peripheral pulses Gastrointestinal: soft, decreased bowel sounds, nondistended Extremities: slow capillary refill, swelling, 4+ LE B/L edema Skin: ecchymosis Skin Temp/Moisture Exam: warm/Dry RIGHT GROIN TLC IN PLACE Results Last 24 Hrs of Lab Results: Laboratory Tests 12/25/17 0359: Anion Gap 8, Estimated GFR > 60, Glucose 97, Calcium 8.4, Phosphorus 4.0, Magnesium 2.0, Total Bilirubin 0.2, AST 25, ALT 38, Albumin 2.4 L, CBC w Diff MAN DIFF ORDERED, RBC 3.02 L, MCV 86.4, MCH 28.3, MCHC 32.7 L, RDW 18.5 H, MPV 8.7, Gran % Pending, Lymphocytes % Pending, Monocytes % Pending, Eosinophils % Pending, Basophils % Pending, Absolute Granulocytes Pending, Segmented Neutrophils Pending, Absolute Lymphocytes Pending, Absolute Monocytes Pending, Absolute Eosinophils Pending, Absolute Basophils Pending 12/24/17 2100: Lactic Acid Cancelled, CBC w Diff Cancelled, WBC Cancelled, RBC Cancelled, Hgb Cancelled, Hct Cancelled, MCV Cancelled, MCH Cancelled, MCHC Cancelled, RDW Cancelled, Plt Count Cancelled, MPV Cancelled 12/24/17 1520: Anion Gap 10, Estimated GFR > 60, Glucose 95, Calcium 8.2 L, Phosphorus 4.2, Magnesium 1.9, Total Bilirubin 0.1 L, AST 30, ALT 36, Albumin 2.5 L, CBC w Diff MAN DIFF ORDERED, RBC 2.62 L, MCV 85.3, MCH 27.5, MCHC 32.3 L, RDW 20.3 H, MPV 8.5, Gran % 88.5 H, Lymphocytes % 8.3 L, Monocytes % 2.9, Eosinophils % 0.1, Basophils % 0.2, Absolute Granulocytes 3.9, Segmented Neutrophils 19 L, Band Neutrophils 24 H, Absolute Lymphocytes 0.4 L, Lymphocytes 10 L, Monocytes 6, Absolute Monocytes 0.1, Absolute Eosinophils 0, Absolute Basophils 0, Metamyelocytes 30 H, Myelocytes 10 H, Promyelocytes 1 H, Nucleated RBCs 5 H, Platelet Estimate DECREASED, Polychromasia 1+, Hypochromic-Microcytic 2+, Basophilic Stippling 2+, Anisocytosis 1+ 12/24/17 1100: Lactic Acid 1.8 12/24/17 0850: pH 7.26 *L, pCO2 61 *H, pO2 81, HCO3 27, ABG O2 Sat (Measured) 94.0 L, Carboxyhemoglobin 0.2 L, O2 Concentration % 100, Respiration Rate 22, O2 Delivery Method BIPAP, Vent Mode ST, Expiratory Pressure 6, Inspiratory Pressure 18, Phlebotomy Draw Site LEFT RADIAL 12/24/17 0800: Lactic Acid 2.8 H Last 24 Hrs of Micro Results: Respiratory culture positive for yeast, urine culture positive for enterococcus, urine positive for strep pneumo bacterial antigen. Impression/Plan Impression/Plan Impression/Plan: 1. Severe septic shock in the setting of acute worsening respiratory failure and aspiration pneumonia. Urinary antigen is positive for strep pneumo. Urine culture positive for enterococcus. 2. Right upper lobe collapse and multi lobar infiltrates, possible ARDS. 3. Persistent hypotension in the setting of sepsis, on pressors. 4. Aortic stenosis with diastolic heart failure and increased propensity for heart failure. 5. Pancytopenia in the setting of sepsis. 6. Anemia without active bleeding. 7. History of COPD/bronchospasm, on IV steroids. 8. Malnutrition. Recommendations: * D51/2 NS at 50 mL per hour. * Check an ABG - will attempt to adjust BIPAP according to results. * Attempt to wean Levaphed off if able. Keep SBP > 90 mmHg. * Once off pressors, will need to remove right groin TLC BARBARA. * Follow-up chest x-ray results. * Continue nebs/total respiratory care. * Chest PT to the right upper lobe with nebulizer treatments. * The patient would require intubation and mechanical ventilation for bronchoscopy to alleviate the right upper lobe collapse. She remains DNI. * Follow-up cultures. * Continue broad-spectrum antibiotics. The patient remains on vancomycin and ceftriaxone. * Continue IV fluid resuscitation. * Continue IV Solu-Medrol for acute exacerbation of COPD, 40 mg daily. * DVT prophylaxis at all times with Alps. * N.p.o., strict aspiration precautions. * Can not start tube feeds while patient is BIPAP dependent and high risk for aspiration. * The patient is DNR/DNI. * The patient is critically ill with a very poor prognosis. * I had a lengthy discussion with the patient's daughter yesterday regarding the patient's poor prognosis and overall care. The patient's daughter Renea is currently vacationing in [place]. She is aware the patient has significantly deteriorated and has severe septic shock. She clearly stated her mother would want everything up to the point of intubation and resuscitation. She would not want bronchoscopy. The plan is to continue all current measures. If the patient deteriorates, the family will consider making her comfort measures. We will continue all current supportive care.
[2017-12-25 08:00] VITALS: BP 118/00
--- NOTE | 2017-12-25 08:08 | PN- Resident CRCU ---
Subjective HPI/CRCU Issues: Septic Shock secondary to pneumonia, on norepinephrine to maintain MAP >65 Acute hypoxemic and hypercarbic respiratory failure pneumococcal pneumonia Metabolic encephalopathy 24 Hour Events: Patient was transfused one unit pRBCs yesterday Unable to titrate < 5 mcg/min of levophed Urine output improved Mental status remains obtunded Remains tachypneic dependent on BiPAP 18/6 with FiO2 of 1 ABG yesterday 7.26/61/81 on fio2 1 Receiving aggressive chest physiotherapy for RUL collapse Objective Vital Signs & I&O Last 8 Hrs of Vitals and I&O: Afebrile HR 60s, RR 30s, BP 103/46 on levophed SpO2 90s on fio2 of 1 Exam General Appearance: comatose, on bipap Respiratory: diffuse rhonchi Cardiovascular: regular rate/rhythm, normal peripheral pulses Gastrointestinal: normal bowel sounds, soft, non-tender Extremities: 3+ pitting edema all extremities Current Medications: Current Medications Sig/Courtney Start time Last Medication Dose Route Stop Time Status Admin Acetaminophen 1,000 MG Q6P PRN 12/23 0345 IV Albuterol Sulfate 3 ML BID 12/23 2100 AC 12/25 INH 0823 Ceftriaxone Sodium 1,000 MG DAILY 12/23 1436 AC 12/25 IV 0900 Dextrose/Sodium 1,000 ML Q6H 12/23 1045 DC 12/23 Chloride IV 2107 Methylprednisolone 40 MG Q12 12/24 2100 AC 12/25 IV 0900 Methylprednisolone 40 MG Q8 12/23 0600 DC 12/24 IV 0652 Norepinephrine 4 MG Q13H 12/24 1800 AC 12/25 Dextrose/Water 250 ML IV 0614 Norepinephrine 4 MG Q3H 12/23 1200 DC 12/24 Dextrose/Water 250 ML IV 12/24 1759 0300 Pantoprazole Sodium 40 MG DAILY 12/23 1405 AC 12/25 IV 0900 Sodium Chloride 500 ML BOLUS ONE 12/24 2230 CAN IV 12/24 2329 Vancomycin HCl 1,000 MG 0100 12/24 0100 12/25 Sodium Chloride 250 ML IV 0132 CXR Findings: FINDINGS: The cardiomediastinal silhouette is likely unchanged. Compared to 12/23/2017, there is a similar pattern of extensive airspace disease with relative preserved aeration of the right lung base. Dense right upper lobe opacity demonstrates a component of volume loss. Blunting of the left costophrenic angle; cannot exclude layering pleural effusion. No evidence of pneumothorax. Osseous detail is relatively limited. IMPRESSION: No substantial change when compared to 12/23/2017. Extensive bilateral airspace disease, with relative sparing of the right lung base. There is a superimposed component of right upper lobe collapse in addition to other parenchymal opacities. Impression/Plan Impression/Problem List Impression: 72 y/o F with a PMH significant for schizophrenia, bipolar disorder, HFpEF, recurrent hypothermia that was BIBA to ED for dyspneic, hypoxemia, and altered mental status. She has septic shock secondary to pneumococcal pneumonia requiring levophed and BiPAP with FiO2 of 1. Her antibiotics have been narrowed. Her lactic acidemia and urine output improved but her mental status remains comatose with continued need for norepinephrine to maintain blood pressure and NIPPV on FiO2 of 1 to maintain adequate oxygentation. Septic Shock: Pancytopenia, lactic acidemia, hypothermia and refractory hypotension Secondary to pneumococcus, urinary antigen positive Requiring norepinephrine 5mcg/min to maintain MAPs Lactic acidemia cleared with fluid resuscitation + fluid balance of five liters Was previously on vasopressin and levo 20mcg/min Blood pressure improved but still pressor dependent Continue ceftriaxone, Day 3 Received ceftazidime one day prior in addition to 3 days of vancomycin Blood cultures negative Urine cultures positive for enterococcus, sensitivities pending Recently admitted and treated for MRSA/Moraxella PNA, initially tx'd for HCAP Acute hypoxemic and hypercarbic respiratory failure: Secondary to pneumococcal pneumonia and RUL collapse Bilateral airspace disease on chest x-ray Continue antibiotics BiPAP dependent with persistent hypoxemia despite FiO2 of 1 Continue BiPAP 18/6 ABG 7.26/61/81 on fio2 of 1 Repeat ABG and chest x-ray to re-evaluate right upper lobe collapse TRC evaluation Continue nebulized albuterol and ipatropium and chest physiotherapy Change steroids to 40mg solumedrol daily starting tmrw, c/w BID today Bipolar disorder/Schizoprenia Abilify and depakote on hold Metabolic encephalopathy: Secondary to sepsis, hypercarbia, hypoxemia, and sepsis IV PPI, D5-1/2 NS @ 50cc/hr, accuchecks to monitor for hypoglycemia NPO, consider NGT placement and tube feeds DVT PPX-ALPS, heparin sc DNR/DNI Patient remains on pressors and NIPPV with an FiO2 of 1 to maintain blood pressure and prevent critical hypoxemia despite appropriate antibiotics and supportive care, she continues to be comatose, will discuss poor prognosis with family and re-evaluate patient's code status Problem List: 1. Altered mental status 2. Respiratory failure 3. Acute respiratory acidosis 4. Pneumonia Pain Ratin Tomorrow's Labs & Rationales: cbc, icu Plan DVT/Prophylaxis: mechanical, pharmacological
--- NOTE | 2017-12-25 10:29 | RADIOLOGY REPORT ---
EXAMINATION: XR PORTABLE CHEST CLINICAL INFORMATION: Right upper lobe collapse COMPARISON: 12/24/2017 TECHNIQUE: Portable frontal view of the chest was obtained. FINDINGS: The film is limited by suboptimal patient cooperation. Lung volumes remain low. There is persistent right upper lobe opacification and volume loss (elevation of the right minor fissure). There continues to be left upper lobe consolidation, perhaps slightly patchier than on the prior study. Hazy bibasilar opacities have worsened, likely a component of pleural effusions and atelectasis but concomitant aspiration or pneumonia are possible as well. No pneumothorax seen although the film is limited. Cardiac silhouette remains enlarged. Persistent right paratracheal soft tissue prominence. IMPRESSION: Persistent dense right upper lobe consolidation with volume loss. Persistent left upper lobe consolidation, perhaps slightly patchier than on the prior study. Worsening hazy bibasilar opacities, likely a combination of pleural effusion and atelectasis, although aspiration or pneumonia are possible as well.
--- NOTE | 2017-12-25 15:45 | Proc Note Internal Medicine ---
Medicine Procedure Procedure Date: 12/25/17 Medical Procedure(s): arterial line placement Pre-Operative Diagnosis: hypercarbic/hypoxemic resp failure septic shock requiring norepinephrine gtt Post-Operative Diagnosis: same Estimated Blood Loss: scant Anesthesia: none Procedure Findings: A time-out was completed verifying correct patient, procedure, and site. Allens test was performed to ensure adequate perfusion. The patients left wrist was prepped and draped in sterile fashion. A 20G Arrow arterial line was introduced into the radial artery under ultrasound guidance. The catheter was threaded over the guide wire and the needle was removed with appropriate pulsatile blood return. The catheter was then sutured in place to the skin and a sterile dressing applied. Perfusion to the extremity distal to the point of catheter insertion was checked and found to be adequate. The patient tolerated the procedure well and there were no complications.
[2017-12-25 16:00] VITALS: BP 94/52
[2017-12-25 23:00] VITALS: BP 88/54
[2017-12-26 04:52] LABS: ABSOLUTE BASOPHIL COUNT 0 /CUMM (0.0-0.2); ABSOLUTE EOSINOPHIL COUNT 0 /CUMM (0.0-0.7); ABSOLUTE GRANULOCYTE CT 7.4 /CUMM (1.4-6.5); ABSOLUTE LYMPH COUNT 0.4 /CUMM (1.2-3.4); ABSOLUTE MONOCYTE COUNT 0 /CUMM (0.10-0.60); BASOPHIL % 0 % (0.0-2.0); EOSINOPHIL % 0 % (0-5); GRANULOCYTE % 94.9 % (42.2-75.2); HEMATOCRIT 26.3 % (37-47); MEAN CORPUSCULAR HGB 28.2 PG (27.0-31.0); MEAN CORPUSCULAR HGB CONC 32.8 G/DL (33.0-37.0); RBC DISTRIBUTION WIDTH 19.2 % (11.5-14.5); RED BLOOD CELL CT 3.06 /CUMM (4.20-5.40); WHITE BLOOD CELL COUNT 7.8 /CUMM (4.8-10.8)
[2017-12-26 05:28] LABS: PLATELET COUNT 87 /CUMM (130-400)
--- NOTE | 2017-12-26 09:03 | RADIOLOGY REPORT ---
EXAMINATION: XR PORTABLE CHEST CLINICAL INFORMATION: Right upper lobe collapse. Pneumonia. COMPARISON: None TECHNIQUE: Portable frontal view of the chest was obtained. FINDINGS: Patient is extremely kyphotic limiting evaluation. The lungs are hypovolemic with airspace opacity left upper lobe and patchy opacity in the right upper lobe. Haziness in the left lung base is noted. Underlying infiltrate/atelectasis or effusion cannot be excluded. Heart size is borderline normal. No gross bony abnormality seen. IMPRESSION: Left upper lobe infiltrate and likely right upper lobe patchy consolidation are stable. Left lung base opacity is unchanged as well. The patient is extremely kyphotic limiting evaluation.
--- NOTE | 2017-12-26 10:04 | PN- Resident CRCU ---
Subjective HPI/CRCU Issues: #Septic Shock 2/2 HAP, on norepinephrine #[id number] hypoxemic/hypercarbic respiratory failure, on BiPAP with 100% FiO2. #Healthcare-acquired Pneumonia, positive U ag for Strep Pneumo #Altered mental status, multifactorial #Bipolar disorder/Schizoprenia 24 Hour Events: Pt see and examined this am. She was off levophed overnight, though acutely worsening. She is back on levophed @ 5mcgs/kg/hr, now with SBP>90; latest am blood gases show acute worsening too-> pH: 7.03/ pCO2 124/ pO2 61 while on BiPAP 26/6 and 100% O2. She remains unresponsive to verbal or noxious stimuli with edematous BL extremities. Daughter was updated on her current status, she remains DNR/DNI. Objective Vital Signs & I&O Last 8 Hrs of Vitals and I&O: Intake & Output 12/26 1600 12/26 0800 12/26 0000 Intake Total 905 984 Output Total 205 175 Balance 700 809 Intake, IV 905 984 Intake, Oral 0 0 Number 0 0 Bowel Movements Output, Urine 205 175 Laboratory Tests 12/26 12/26 12/25 0954 0358 1605 Blood Gas pH (7.35 - 7.45 PH) 7.03 *L 7.30 *L pCO2 (35 - 45 TORR) 127 *H 61 *H pO2 (80 - 100 TORR) 61 L 77 L HCO3 (21 - 28 MEQ/L) 33 H 30 H ABG O2 Sat (Measured) (>96.0 %) 82.0 L 94.0 L P-50 (Temp Corrected) Y Carboxyhemoglobin (1.5 - 5.0 %) 0.4 L 0.9 L O2 Concentration % 100% 95% Temperature (97.0 - 100.0 FARH) 95.8 L Respiration Rate (BPM) 30 30 O2 Delivery Method BIPAP FFM Vent Mode ST ST Expiratory Pressure (CM H2O P) 6 6 Inspiratory Pressure (CM H2O P) 24 24 Chemistry Sodium (137 - 145 mmol/L) 144 Potassium (3.5 - 5.1 mmol/L) 4.6 Chloride (98 - 107 mmol/L) 100 Carbon Dioxide (22 - 30 mmol/L) 34 H Anion Gap (5 - 16) 10 BUN (7 - 17 mg/dL) 26 H Creatinine (0.5 - 1.0 mg/dL) 0.6 Estimated GFR (>60 ml/min) > 60 Glucose (65 - 99 mg/dL) 132 H Calcium (8.4 - 10.2 mg/dL) 8.4 Phosphorus (2.5 - 4.5 mg/dL) 3.8 Magnesium (1.6 - 2.3 mg/dL) 2.3 Total Bilirubin (0.2 - 1.3 mg/dL) 0.2 AST (14 - 36 U/L) 35 ALT (9 - 52 U/L) 47 Albumin (3.5 - 5.0 g/dL) 2.6 L Hematology CBC w Diff MAN DIFF ORDERED WBC (4.8 - 10.8 /CUMM) 7.8 RBC (4.20 - 5.40 /CUMM) 3.06 L Hgb (12.0 - 16.0 G/DL) 8.6 L Hct (37 - 47 %) 26.3 L MCV (81.0 - 99.0 FL) 86.0 MCH (27.0 - 31.0 PG) 28.2 MCHC (33.0 - 37.0 G/DL) 32.8 L RDW (11.5 - 14.5 %) 19.2 H Plt Count (130 - 400 /CUMM) 87 L MPV (7.4 - 10.4 FL) 9.0 Gran % (42.2 - 75.2 %) 94.9 H Lymphocytes % (20.5 - 51.1 %) 4.5 L Monocytes % (1.7 - 9.3 %) 0.6 L Eosinophils % (0 - 5 %) 0 Basophils % (0.0 - 2.0 %) 0 Absolute Granulocytes (1.4 - 6.5 /CUMM) 7.4 H Segmented Neutrophils (42.2 - 75.2 %) 54 Band Neutrophils (0.0 - 5.0 %) 37 H Absolute Lymphocytes (1.2 - 3.4 /CUMM) 0.4 L Lymphocytes (20.5 - 51.1 %) 5 L Absolute Monocytes (0.10 - 0.60 /CUMM) 0 L Eosinophils (0 - 5.0 %) 1 Absolute Eosinophils (0.0 - 0.7 /CUMM) 0 Absolute Basophils (0.0 - 0.2 /CUMM) 0 Metamyelocytes (0.0 - 1.0 %) 3 H Nucleated RBCs (0.0 - 0.0 /100WBC) 7 H Platelet Estimate (ADEQUATE) DECREASED Basophilic Stippling 1+ Anisocytosis 1+ Macrocytic Cells 1+ Miscellaneous Phlebotomy Draw Site Abida DELCID Vital Signs Date Time Temp Pulse Resp B/P B/P Pulse O2 O2 Flow FiO2 Mean Ox Delivery Rate 12/26 1055 111 85 12/26 0915 127 80 12/26 0900 85 BIPAP 100% 12/26 0900 111 85 12/26 0556 84 92 12/26 0400 92 BIPAP 95% 12/26 0233 98 91 12/26 0050 86 91 12/26 0000 90 BIPAP 95% 12/25 2300 97.0 100 30 88/54 92 BIPAP 95% 12/25 2210 102 92 12/25 2024 131 137/73 12/25 2014 91 BIPAP 95% 12/25 2000 93 BIPAP 95% 12/25 1930 121 91 12/25 1600 94 BIPAP 95% 12/25 1600 95.8 108 31 94/52 95 BIPAP 95% 12/25 1600 110 92 12/25 1200 100 BIPAP 100% 12/25 1135 59 100 Intake & Output 12/26 1600 12/26 0800 12/26 0000 Intake Total 905 984 Output Total 205 175 Balance 700 809 Intake, IV 905 984 Intake, Oral 0 0 Number 0 0 Bowel Movements Output, Urine 205 175 Exam General Appearance: lethargic, severe distress, obese Head: atraumatic Neck: normal inspection Respiratory: decreased breath sounds, accessory muscle use, crackles Cardiovascular: regular rate/rhythm Gastrointestinal: soft, no organomegaly, no bowel sounds Extremities: slow capillary refill Skin: mottled, multiple ecchymoses in B/L UE Skin Temp/Moisture Exam: Cool/Dry Sepsis Skin Exam (color): Flushed, Mottled Sepsis Peripheral Pulse Location: Dorsalis Pedis Sepsis Peripheral Pulse Exam: Weak Sepsis Cap Refill Exam: >2 sec Current Medications: Current Medications Sig/Courtney Start time Last Medication Dose Route Stop Time Status Admin Acetaminophen 1,000 MG Q6P PRN 12/23 0345 AC IV Albuterol Sulfate 3 ML BID 12/23 2100 AC 12/26 INH 0902 Ceftriaxone Sodium 1,000 MG DAILY 12/23 1436 AC 12/26 IV 0837 Dextrose/Sodium 1,000 ML Q20H 12/25 1000 AC 12/25 Chloride IV 1037 Furosemide 40 MG ONCE ONE 12/26 1130 UNVr IV 12/26 1131 Heparin Sodium 5,000 UNIT Q8 12/25 1400 AC 12/26 (Porcine) SC 0509 Lidocaine 20 ML .STK-MED ONE 12/25 1505 DC IA 12/25 1506 Methylprednisolone 40 MG DAILY 12/26 0900 AC 12/26 IV 0837 Methylprednisolone 40 MG Q12 12/24 2100 DC 12/25 IV 12/25 2100 202 Norepinephrine 4 MG Q24H 12/26 1115 UNVr Dextrose/Water 250 ML IV Norepinephrine 4 MG Q13H 12/24 1800 DC 12/25 Dextrose/Water 250 ML IV 2024 Nystatin 1 RON BID 12/25 212 AC 12/26 TOP 0836 Pantoprazole Sodium 40 MG DAILY 12/23 1405 AC 12/26 IV 0837 Sodium Bicarbonate 150 MEQ Q8H 12/26 1130 UNVr Dextrose/Water 1,000 ML IV 12/26 1929 Sodium Bicarbonate 150 MEQ Q8H 12/25 1600 DC 12/25 Dextrose/Water 1,000 ML IV 12/25 2359 1731 Vancomycin HCl 1,000 MG 0100 12/24 0100 AC 12/26 Sodium Chloride 250 ML IV 0035 CXR Findings: SERVICE DATE: 12/26/17 EXAM TYPE: RAD - XRY-PORTABLE CHEST XRAY EXAMINATION: XR PORTABLE CHEST CLINICAL INFORMATION: Acute desaturation while on 100% BiPAP. COMPARISON: Prior chest radiograph 12/22/2017 through 12/26/2017. TECHNIQUE: Portable AP 75 degrees upright view of the chest was obtained. FINDINGS: Extensive airspace disease is seen throughout the bilateral lungs very similar to prior with slight improvement in the right upper lobe aeration and atelectasis. There is increased opacity at the right lung base compared to prior. The cardiac silhouette remains enlarged. IMPRESSION: Persistent multifocal diffuse bilateral airspace opacities with slight improved aeration in the right upper lobe but slight worsening opacity in the right lower lobe. Overall there are no significant changes. Impression/Plan Impression/Problem List Impression: Ms. Max is a 72 y/o F with a PMH significant for schizophrenia, bipolar disorder, HFpEF, recurrent hypothermia that was transferred to [place] ED from her extended care facility due to decreased oxygen saturation; on admit she was dyspneic, lethargic, unable to offer more history. Her initial admission picture is consistent with shock due to her unstable hemodynamic status (hypotensive, tachycardic) requiring pressor support. Source probably to be from the lungs, likely HAP, CXR showing bilateral patchy pulmonary infiltrates; also, pt has prior discharge from [place] (11/17), with positive respiratory cultures positive for Moraxella and MRSA. She was admitted to the ICU for management of septic shock 2/2 Hospital Acquired Pneumonia. Pt is currently on norepinephrine A-line showing SBP>90. She does have a positive Strep pneumo Ag, currently on vancomycin and ceftriaxone. #IMPRESSION #Septic Shock 2/2 HAP, on norepinephrine, off vasopressin #[id number]-[id number] hypoxemic and hypercarbic respiratory failure, on BiPAP with 100% FiO2. #Healthcare-acquired Pneumonia, positive U ag for Strep Pneumo #Altered mental status, multifactorial #Bipolar disorder/Schizoprenia #Septic Shock 2/2 HAP, on norepinephrine Pt's clinical picture of pancytopenia, hypothermia and hemodynamic instability requiring pressor support is consistent with septic shock. Likely source is the lungs, CXR does show bilateral patchy infiltrates plus she had a recent admission treated for MRSA and Moraxella and now a positive urinary Ag for Strep Pneumo. Culture results are negative so far; lasix given and observing for urine output. Most recent CXR still show extensive b/l airspace disease with a R upper lobe collapse. -Pt on norepinephrine, titrate as BP allows for a target of >90mmHg, map > 65 -Pt on ceftriaxone and vancomycin (day #4) -Pt on D5 1/2 NS @ 50cc/hr -Continue methylprednisolone 40 Mg IV qD -F/u cultures -F/u labs q8 -Positive Strep Pneumo U ag -Monitor Urine output #[id number] hypercarbic respiratory failure / Altered Mental Status Admission's ABG showed hypercarbia and acidemia with elevated HCO3. Picture is consistent of lipqj-fj-[id number] hypercarbic respiratory failure. She is currently on BiPAP /, FiO2 of 100%, with sats <90. Her respiratory status, metabolic state and compromised hemodynamic picture are all likely contributing to her lethargic mental status. Latest ABG shows a pO2 of 61 while on 100% FiO2 on BiPAP with a pCO2 of 124 and a pH of 7.03 -BiPAP -Pulmonary toilet -Chest PT #Bipolar disorder Pt with a history of schizophrenia and bipolar disorder. Home medications have been held. DNR/DNI NPO DVT PPX Problem List: 1. Altered mental status 2. Schizophrenia 3. Respiratory failure 4. Pancytopenia Pain Ratin (not assessed, pt unresponsive) Tomorrow's Labs & Rationales: cbc, icu lab bundle Plan DVT/Prophylaxis: mechanical, pharmacological
--- NOTE | 2017-12-26 10:19 | RADIOLOGY REPORT ---
EXAMINATION: XR PORTABLE CHEST CLINICAL INFORMATION: Acute desaturation while on 100% BiPAP. COMPARISON: Prior chest radiograph 12/22/2017 through 12/26/2017. TECHNIQUE: Portable AP 75 degrees upright view of the chest was obtained. FINDINGS: Extensive airspace disease is seen throughout the bilateral lungs very similar to prior with slight improvement in the right upper lobe aeration and atelectasis. There is increased opacity at the right lung base compared to prior. The cardiac silhouette remains enlarged. IMPRESSION: Persistent multifocal diffuse bilateral airspace opacities with slight improved aeration in the right upper lobe but slight worsening opacity in the right lower lobe. Overall there are no significant changes.
--- NOTE | 2017-12-26 10:19 | PN- CRCU ---
Subjective HPI/Critical Care Issues: Patient remains BiPAP dependent and lethargicPatient remains BiPAP dependent and lethargic esters have been discontinued pressors have been discontinued significant desaturation after postural drainageshe had significant desaturation after postural drainage Objective Current Medications: Current Medications Sig/Courtney Start time Last Medication Dose Route Stop Time Status Admin Acetaminophen 1,000 MG Q6P PRN 12/23 0345 AC IV Albuterol Sulfate 3 ML BID 12/23 2100 AC 12/26 INH 0902 Ceftriaxone Sodium 1,000 MG DAILY 12/23 1436 AC 12/26 IV 0837 Dextrose/Sodium 1,000 ML Q20H 12/25 1000 AC 12/25 Chloride IV 1037 Heparin Sodium 5,000 UNIT Q8 12/25 1400 AC 12/26 (Porcine) SC 0509 Lidocaine 20 ML .STK-MED ONE 12/25 1505 DC IA 12/25 1506 Methylprednisolone 40 MG DAILY 12/26 0900 AC 12/26 IV 0837 Methylprednisolone 40 MG Q12 12/24 2100 DC 12/25 IV 12/25 2100 202 Norepinephrine 4 MG Q13H 12/24 1800 DC 12/25 Dextrose/Water 250 ML IV 202 Nystatin 1 RON BID 12/25 2125 AC 12/26 TOP 0836 Pantoprazole Sodium 40 MG DAILY 12/23 1405 AC 12/26 IV 0837 Sodium Bicarbonate 150 MEQ Q8H 12/25 1600 DC 12/25 Dextrose/Water 1,000 ML IV 12/25 2359 1731 Vancomycin HCl 1,000 MG 0100 12/24 0100 AC 12/26 Sodium Chloride 250 ML IV 0035 Vital Signs & I&O Last 24 Hrs of Vitals and I&O: Vital Signs Date Time Temp Pulse Resp B/P B/P Pulse O2 O2 Flow FiO2 Mean Ox Delivery Rate 12/26 0556 84 92 12/26 0400 92 BIPAP 95% 12/26 0233 98 91 12/26 0050 86 91 12/26 0000 90 BIPAP 95% 12/25 2300 97.0 100 30 88/54 92 BIPAP 95% 12/25 2210 102 92 12/25 2024 131 137/73 12/25 2014 91 BIPAP 95% 12/26 1999 93 BIPAP 95% 12/25 1930 121 91 12/25 1600 94 BIPAP 95% 12/25 1600 95.8 108 31 94/52 95 BIPAP 95% 12/25 1600 110 92 12/25 1200 100 BIPAP 100% 12/25 1135 59 100 Intake & Output 12/26 1600 12/26 0800 12/26 0000 Intake Total 905 984 Output Total 205 175 Balance 700 809 Intake, IV 905 984 Intake, Oral 0 0 Number 0 0 Bowel Movements Output, Urine 205 175 Oxygen saturation 92% FiO2 95 exam of her chest shows scattered rhonchi since saturation 92% FiO2 95 exam for chest shows scattered rhonchi cardiac exam shows a regular S1 and S2 without murmur Impression/Plan Impression/Plan Impression/Plan: 42-year-old woman with severe sepsis for history failure remains BiPAP dependent with hypercapnic respiratory failure. hemodynamics are improved now off pressors Recommendations: Continue BiPAP at present settings Taper FiO2 his saturations allow. Continue present antibiotics and course of steroids. Continue DVT prophylaxis. She remains DNR/DNI
--- NOTE | 2017-12-26 11:01 | Event Note ---
Event Note Event Note: Patient is had marked deterioration in her arterial blood gases and remains borderline hypotensive. Chest x-rays without significant change. Her daughter was contacted and reaffirmed DNR/DNI. She is made for that her mother will likely survive given the degree of acidemia. She does not wish her status to change. I explained that we'll attempt to manipulate her BiPAP maintain her blood pressure but expectation of survival is small. Her daughter will inform the remainder of her family.
[2017-12-26 16:00] VITALS: BP 110/54
[2017-12-26 23:00] VITALS: BP 128/62
[2017-12-27 05:36] LABS: ABSOLUTE BASOPHIL COUNT 0 /CUMM (0.0-0.2); ABSOLUTE EOSINOPHIL COUNT 0 /CUMM (0.0-0.7); ABSOLUTE GRANULOCYTE CT 7.1 /CUMM (1.4-6.5); ABSOLUTE LYMPH COUNT 0.9 /CUMM (1.2-3.4); ABSOLUTE MONOCYTE COUNT 0.2 /CUMM (0.10-0.60); BASOPHIL % 0.1 % (0.0-2.0); EOSINOPHIL % 0.1 % (0-5); GRANULOCYTE % 86.3 % (42.2-75.2); MEAN CORPUSCULAR HGB 28.2 PG (27.0-31.0); MEAN CORPUSCULAR HGB CONC 31.9 G/DL (33.0-37.0); MEAN CORPUSCULAR VOLUME 88.3 FL (81.0-99.0); MEAN PLATELET VOLUME 9.2 FL (7.4-10.4); RBC DISTRIBUTION WIDTH 19.7 % (11.5-14.5); RED BLOOD CELL CT 3.06 /CUMM (4.20-5.40)
[2017-12-27 05:57] LABS: PLATELET COUNT 139 /CUMM (130-400)
[2017-12-27 07:00] VITALS: BP 120/60
--- NOTE | 2017-12-27 08:05 | PN- Resident CRCU ---
Jose Dwyer 12/27/17 0805: Subjective HPI/CRCU Issues: #Septic Shock 2/2 HAP, on norepinephrine #Ndwkq-zy-kqrycma hypoxemic and hypercarbic respiratory failure, on BiPAP with 100% FiO2. #Healthcare-acquired Pneumonia, positive U ag for Strep Pneumo #Altered mental status, multifactorial #Bipolar disorder/Schizoprenia 24 Hour Events: Pt seen and examined this AM. She continus to be lethargic, unresponsive to noxious stimuli, visibly dyspneic on BiPAP 26/6 100% FiO2, with O2 sat of 88%. She is now on 20 mcgs/kg/hr of levophed. She continues to be critically ill with worsening respiratory status. Latest ABG: pH: 6.92 // pCO2: 150 // pO2: 55. Objective Vital Signs & I&O Last 8 Hrs of Vitals and I&O: Laboratory Tests 12/27/17 0515: pH 6.92 *L, pCO2 150 *H, pO2 55 L, HCO3 30 H, ABG O2 Sat (Measured) 80.0 L, P -50 (Temp Corrected) N, Carboxyhemoglobin 0.7 L, O2 Concentration % 100, Respiration Rate 34, O2 Delivery Method BIPAP, Vent Mode ST, Expiratory Pressure 6, Inspiratory Pressure 26, Phlebotomy Draw Site [place] 12/27/17 5190: Anion Gap 8, Estimated GFR 40 L, Glucose 122 H, Calcium 8.2 L, Phosphorus 5.2 H, Magnesium 2.4 H, Total Bilirubin 0.3, AST 35, ALT 45, Albumin 2.5 L, CBC w Diff MAN DIFF ORDERED, RBC 3.06 L, MCV 88.3, MCH 28.2, MCHC 31.9 L, RDW 19.7 H, MPV 9.2, Gran % 86.3 H, Lymphocytes % 11.3 L, Monocytes % 2.2, Eosinophils % 0.1, Basophils % 0.1, Absolute Granulocytes 7.1 H, Segmented Neutrophils 74, Band Neutrophils 6 H, Absolute Lymphocytes 0.9 L, Lymphocytes 11 L, Monocytes 5, Absolute Monocytes 0.2, Absolute Eosinophils 0, Absolute Basophils 0, Metamyelocytes 4 H, Nucleated RBCs 25 H, Platelet Estimate ADEQUATE, Polychromasia 1+, Hypochromic-Microcytic 1+, Poikilocytosis 1+, Basophilic Stippling 1+, Ovalocytes 1+, Stomatocytes FEW, Fld Total RBCs Counted 100 12/26/17 0954: pH 7.03 *L, pCO2 127 *H, pO2 61 L, HCO3 33 H, ABG O2 Sat (Measured) 82.0 L, Carboxyhemoglobin 0.4 L, O2 Concentration % 100%, Respiration Rate 30, O2 Delivery Method BIPAP, Vent Mode ST, Expiratory Pressure 6, Inspiratory Pressure 24, Phlebotomy Draw Site L FARHANA Vital Signs Date Time Temp Pulse Resp B/P B/P Pulse O2 O2 Flow FiO2 Mean Ox Delivery Rate 12/27 0808 107 90 12/27 0700 96.7 93 33 120/60 88 BIPAP 100% 12/27 0528 96 117/54 12/27 0515 96 75 12/27 0400 88 BIPAP 100% 12/27 0310 106 85 12/27 0036 109 88 12/27 0019 101 92 12/27 0000 91 BIPAP 90% 12/26 2300 97.0 98 30 128/62 91 BIPAP 90% 12/26 2256 94 128/64 12/26 2229 113 93 12/26 2000 93 BIPAP 100% 12/26 1945 109 94 12/26 1615 106 92 12/26 1600 91 BIPAP 100% 12/26 1600 96.2 92 44 110/54 91 BIPAP 100% 12/26 1525 101 36 90/50 12/26 1403 87 87 12/26 1200 89 BIPAP 100% 12/26 1139 102 36 78/40 12/26 1055 111 85 12/26 0915 127 80 12/26 0900 85 BIPAP 100% 12/26 0900 111 85 Intake & Output 12/27 1600 12/27 0800 12/27 0000 Intake Total 1011 1219 Output Total 40 75 Balance 971 1144 Intake, IV 1011 1219 Intake, Oral 0 0 Number 0 0 Bowel Movements Output, Urine 40 75 Exam General Appearance: lethargic, severe distress, obese Head: atraumatic Neck: normal inspection, supple Respiratory: Scattered crackles heard, L>R. Poor air movement. Cardiovascular: tachycardia, B/L 4+ LE edema. Peripheral pulses faint Gastrointestinal: soft, non-tender, no organomegaly, No bowel sounds heard, though normotympanic on percussion Extremities: slow capillary refill Skin: ecchymosis Skin Temp/Moisture Exam: Cool/Dry Sepsis Peripheral Pulse Location: Dorsalis Pedis Sepsis Peripheral Pulse Exam: Weak Sepsis Cap Refill Exam: >2 sec Current Medications: Current Medications Sig/Courtney Start time Last Medication Dose Route Stop Time Status Admin Acetaminophen 1,000 MG Q6P PRN 12/23 0345 AC IV Albuterol Sulfate 3 ML BID 12/23 2100 AC 12/26 INH 2106 Ceftriaxone Sodium 1,000 MG DAILY 12/23 1436 AC 12/26 IV 0837 Dextrose/Sodium 1,000 ML Q20H 12/25 1000 AC 12/26 Chloride IV 1944 Furosemide 60 MG ONCE ONE 12/27 0200 DC 12/27 IV 12/27 0201 0227 Furosemide 40 MG ONCE ONE 12/27 0145 CAN IV 12/27 0146 Furosemide 40 MG ONCE ONE 12/26 1130 DC 12/26 IV 12/26 1131 1140 Heparin Sodium 5,000 UNIT Q8 12/25 1400 AC 12/27 (Porcine) SC 0527 Methylprednisolone 40 MG DAILY 12/26 0900 AC 12/26 IV 0837 Norepinephrine 4 MG Q6H 12/26 2100 AC 12/27 Dextrose/Water 250 ML IV 0528 Norepinephrine 4 MG Q24H 12/26 1115 DC 12/26 Dextrose/Water 250 ML IV 12/26 2059 1525 Nystatin 1 RON BID 12/25 2125 AC 12/26 TOP 2115 Pantoprazole Sodium 40 MG DAILY 12/23 1405 AC 12/26 IV 0837 Sodium Bicarbonate 150 MEQ Q8H 12/26 1130 DC 12/26 Dextrose/Water 1,000 ML IV 12/26 1929 1251 Vancomycin HCl 1,000 MG 0100 12/24 0100 AC 12/27 Sodium Chloride 250 ML IV 0050 CXR Findings: SERVICE DATE: 12/26/17 EXAM TYPE: RAD - XRY-PORTABLE CHEST XRAY EXAMINATION: XR PORTABLE CHEST CLINICAL INFORMATION: Acute desaturation while on 100% BiPAP. COMPARISON: Prior chest radiograph 12/22/2017 through 12/26/2017. TECHNIQUE: Portable AP 75 degrees upright view of the chest was obtained. FINDINGS: Extensive airspace disease is seen throughout the bilateral lungs very similar to prior with slight improvement in the right upper lobe aeration and atelectasis. There is increased opacity at the right lung base compared to prior. The cardiac silhouette remains enlarged. IMPRESSION: Persistent multifocal diffuse bilateral airspace opacities with slight improved aeration in the right upper lobe but slight worsening opacity in the right lower lobe. Overall there are no significant changes. Impression/Plan Impression/Problem List Impression: Ms. Max is a 72 y/o F with a PMH significant for schizophrenia, bipolar disorder, HFpEF, recurrent hypothermia that was transferred to [place] ED from her extended care facility due to decreased oxygen saturation; on admit she was dyspneic, lethargic, unable to offer more history. Her initial admission picture is consistent with shock due to her unstable hemodynamic status (hypotensive, tachycardic) requiring pressor support. Source probably to be from the lungs, likely HAP, CXR showing bilateral patchy pulmonary infiltrates; also, pt has prior discharge from [facility] (11/17), with positive respiratory cultures positive for Moraxella and MRSA. She was admitted to the ICU for management of septic shock 2/2 Hospital Acquired Pneumonia. Pt is currently on norepinephrine A-line showing SBP>90. She does have a positive Strep pneumo Ag, currently on vancomycin and ceftriaxone. #IMPRESSION #Septic Shock 2/2 HAP, on norepinephrine #Ihvwa-tj-qpvddza hypoxemic and hypercarbic respiratory failure, on BiPAP with 100% FiO2. #Healthcare-acquired Pneumonia, positive U ag for Strep Pneumo #Altered mental status, multifactorial #Bipolar disorder/Schizoprenia #Septic Shock 2/2 HAP, on norepinephrine Pt's clinical picture of pancytopenia, hypothermia and hemodynamic instability requiring pressor support is consistent with septic shock. Likely source is the lungs, CXR does show bilateral patchy infiltrates plus she had a recent admission treated for MRSA and Moraxella and now a positive urinary Ag for Strep Pneumo. Culture results are negative so far; lasix given and observing for urine output. Most recent CXR still show extensive b/l airspace disease with a R upper lobe collapse. She is maxed out on norepi, though at her current status adding a 2nd pressor would not aid much; pt is critically ill with worsening status. -Pt on norepinephrine, 20 mcgs/kg/h -Pt on ceftriaxone and vancomycin (day #4) -Pt on D5 1/2 NS @ 50cc/hr -Continue methylprednisolone 40 Mg IV qD -F/u cultures -Positive Strep Pneumo U ag -Monitor Urine output #Jetwz-gl-ochnixy hypercarbic respiratory failure /Altered Mental Status Admission's ABG showed hypercarbia and acidemia with elevated HCO3. Picture is consistent of [id number] hypercarbic respiratory failure. She is currently on BiPAP 23/11, FiO2 of 100%, with sats <90. Her respiratory status, metabolic state and compromised hemodynamic picture are all likely contributing to her lethargic mental status. Latest ABG shows H: 6.92 // pCO2: 150 // pO2: 55. -BiPAP, currently / #Bipolar disorder Pt with a history of schizophrenia and bipolar disorder. Home medications have been held. DNR/DNI NPO DVT PPX Problem List: 1. Sepsis 2. HCAP (healthcare-associated pneumonia) 3. Pneumonia Pain Ratin Tomorrow's Labs & Rationales: . Plan DVT/Prophylaxis: mechanical, pharmacological Tawanna GARCIA,[facility] 12/27/17 0958: Attending MD Review Statement Attending Sign Off Attending Cosign Statement: I have: examined this patient, reviewed [employer] EMR data, personally reviewd images, discussd w/resident/PA/SPORTS DIRECTOR, discussed mgmt plan w/lori, discussed mgmt plan w/CM, discussed mgmt plan w/pt, agreed w/resident/PA/SPORTS DIRECTOR, amended to note. Other Findings: Seen and examined independently Pt continues to get worse and has worsening hypercarbia Maxed on levo Issues Worsening resp failure Worseing sepsis IMP This is a 72-year-old lady who resides in a correction with schizoaffective disorder, previous CVA, wheelchair bound, heart failure with preserved ejection fraction, significant aortic stenosis, goiter, previous radioactive iodine treatment, history of breast cancer with lumpectomy and radiation, chronic hyponatremia, multiple hospitalizations for aspiration pneumonia and hypothermia , came into the hospital with cough shortness of breath decreased mentation, severe septic shock with chest x-ray suggestive of bilateral recurrent pulmonary infiltrates. Her blood work as noted IMPRESSION Severe septic shock, hypotension, initial hypoglycemia She is DNR/DNI. Due to her increased work of breathing she is now also on BiPAP. Recurrent aspiration pneumonia Aortic stenosis with diastolic heart disease with height propensity for heart failure Pancytopenia including thrombocytopenia leukopenia and related to overwhelming sepsis and worsening shock - stable Recent Worsening performance status, recurrent hypothermia rule out hypoglycemia and adrenal insufficiency (previously been ruled out), Respiratory failure which appears to be hypoxemic and hypercarbic multiple factors Goiter substernal appears to be stable no new change Thrombocytopenia and leukopenia previous HIDA has been ruled out RECOMMENDATION/plan PT is dnr and dni Continue broad-spectrum antibiotics Cont levofed and as she did not respond to all measures starting another vasopressors will be medically futile and will hold off starting another pressors as the risk out weighs the benefit Continue BiPAP even though it may not be helping her we will see whether this would change her status, till the daughter gets here Other plan as above Critically ill still, tts 36 mins Patient is DNR/DNI, Daughter is expected to arrive tommorow
[2017-12-27 17:28] VITALS: BP 110/60
[2017-12-27 19:12] VITALS: BP 110/55
--- NOTE | 2017-12-27 20:07 | Event Note ---
Event Note Event Note: Situation: potline monitor showed asystole Background: Patient was seen and examined. Her pupils were fixed and non reactive to light. Patient was taken off BiPAP. Heart sounds were absent on auscultation. Patient was pronounced at 8:05pm. The daughter Gala was contacted. Inquired about autopsy but it was refused. Dr Stacy and fire protection fabricator Dr Portillo were informed.
== END 2017-12-27 20:05 | disposition expired | DRG 871 ==
LOC: ERH 21:56 → ERHI 12-23 → CRI 12-23 → ENRESERV 12-23 07:38 → ENTRNSPT 12-23 08:02 → EDTRNSPT 12-23 08:09 → CRI 12-23 08:31 → EDTRNSPTSTS 12-23 08:47 → CMPTRNSPT 12-23 08:50 → CRI 12-23 12:50 → ENTRNSPT 12-27 21:38 → EDTRNSPT 12-27 21:48 → EDTRNSPTSTS 12-27 21:48 → CMPTRNSPT 12-27 22:12
PROVIDERS: Emergency Medicine; Internal Medicine Interventional Cardiology; Preventive Medicine Public Health & General Preventive Medicine; Student in an Organized Health Care Education/Training Program
PROC: 5A09457 Assistance with Respiratory Ventilation, 24-96 Consecutive Hours, Continuous Positive Airway Pressure (ICD-10-PCS; 2017-12-23)
PROC: 02HV33Z Insertion of Infusion Device into Superior Vena Cava, Percutaneous Approach (ICD-10-PCS; 2017-12-23)
PROC: 30233N1 Transfusion of Nonautologous Red Blood Cells into Peripheral Vein, Percutaneous Approach (ICD-10-PCS; principal; 2017-12-24)
PROC: 03HC33Z Insertion of Infusion Device into Left Radial Artery, Percutaneous Approach (ICD-10-PCS; 2017-12-25)
DX: A41.9 Sepsis, unspecified organism (principal); J18.9 Pneumonia, unspecified organism; J96.21 Acute and chronic respiratory failure with hypoxia; J96.22 Acute and chronic respiratory failure with hypercapnia; R65.21 Severe sepsis with septic shock; I50.33 Acute on chronic diastolic (congestive) heart failure; G92 Toxic encephalopathy; J69.0 Pneumonitis due to inhalation of food and vomit; D61.818 Other pancytopenia; E66.2 Morbid (severe) obesity with alveolar hypoventilation; E46 Unspecified protein-calorie malnutrition; E78.5 Hyperlipidemia, unspecified; Z85.3 Personal history of malignant neoplasm of breast; E66.9 Obesity, unspecified; Z68.38 Body mass index [BMI] 38.0-38.9, adult; R68.0 Hypothermia, not associated with low environmental temperature; I95.9 Hypotension, unspecified; Z99.81 Dependence on supplemental oxygen; F31.9 Bipolar disorder, unspecified; F20.9 Schizophrenia, unspecified; I35.0 Nonrheumatic aortic (valve) stenosis; E04.9 Nontoxic goiter, unspecified; R60.1 Generalized edema; Z66 Do not resuscitate; B95.3 Streptococcus pneumoniae as the cause of diseases classified elsewhere; Z88.1 Allergy status to other antibiotic agents; Z88.2 Allergy status to sulfonamides; Z88.8 Allergy status to other drugs, medicaments and biological substances; Z90.49 Acquired absence of other specified parts of digestive tract; Z91.81 History of falling; R32 Unspecified urinary incontinence; Z86.73 Personal history of transient ischemic attack (TIA), and cerebral infarction without residual deficits; B95.2 Enterococcus as the cause of diseases classified elsewhere
CPT/HCPCS: CCU; 36415; 36592; 71045; 81001; 82436; 86902; 86920; 86922; 87040; 87070; 87071; 87086; 87147; 87449; 87450; 93005; 93010; 99291; J0696; J0713; J1644; J1940; J2001; J2920; J2930; J3370; J7040; J7042; J7060; P9016; P9047